=== PATIENT | male | born 1945 | race Caucasian/White ===

== ENCOUNTER → 2020-02-11 09:15 | Outpatient (CLI) | payer MEDICARE, SELFPAY | PROVIDERS: PCP Internal Medicine; Referring Provider Nurse Practitioner; Visit Provider Nurse Practitioner | DX: Z20.828 Contact with and (suspected) exposure to other viral communicable diseases (principal) | CPT/HCPCS: 87635; C9803; U0003 ==

== ENCOUNTER 2021-06-20 09:49 | Outpatient (CLI) | payer MEDICARE, SELFPAY ==
--- NOTE | 2021-06-20 09:53 | ECHOD_ITS ---
Reason For Study: Murmur Procedure This was a 2D Doppler, Color Flow transthoracic echocardiogram. Contrast injection was performed. Exam performed in department. Left Ventricle Normal LV size. Left ventricular systolic function is normal. The estimated ejection fraction is 65 %. No evidence for diastolic dysfunction. No regional wall motion abnormalities noted. Right Ventricle Normal RV size. Normal systolic function. Atria Normal left atrium. Normal right atrium. No doppler evidence for ASD. Mitral Valve There is no mitral annular calcification. Normal mitral valve. Mild (1+) mitral valve insufficiency. Tricuspid Valve Normal tricuspid valve. Trivial tricuspid valve insufficiency. Unable to estimate RV systolic pressure due to insufficient tricuspid regurgitant envelope. Aortic Valve Trisinus/trileaflet aortic valve. Mild diffuse aortic valve thickening. Moderate diffuse aortic valve calcification. Moderate aortic stenosis. Pulmonic Valve The pulmonic valve is not well visualized. Great Vessels Normal sized aortic root. Pericardium/Pleural No pericardial effusion. MMode/2D Measurements & Calculations LVIDd: 4.6 cm IVSd: 1.1 cm LVOT diam: 2.0 cm LVIDs: 2.8 cm LVPWd: 0.97 cm LVOT area: 3.3 cm2 RVDd: 3.0 cm FS: 38.9 % Ao root diam: 3.2 cm LAV(MOD-bp): 55.8 ml Aortic Valve Planimetry: 0.97 cm2 ACS: 0.98 cm LAV(MOD-bp) Indexed: 31.4 ml/m2 LA dimension: 4.0 cm LAV(MOD-sp2): 59.9 ml LAV(MOD-sp4): 52.3 ml LA A4 area: 18.5 cm2 RA A4 area: 15.4 cm2 Time Measurements MV dec time: 0.31 sec Doppler Measurements & Calculations MV E max mhaesh: 80.3 cm/sec Lat Peak E' Mahesh: 7.4 cm/sec Med Peak E' Mahesh: 6.3 cm/sec MV A max mahesh: 103.5 cm/sec E/E' lat: 10.9 E/E' med: 12.8 MV E/A: 0.78 MV V2 max: 101.6 cm/sec MV P1/2t max mahesh: 75.7 cm/sec Ao V2 max: 309.8 cm/sec MV max P.1 mmHg MV P1/2t: 99.3 msec Ao max P.4 mmHg MV V2 mean: 58.0 cm/sec MV dec slope: 223.2 cm/sec2 Ao V2 mean: 218.9 cm/sec MV mean P.5 mmHg Ao mean P.6 mmHg MV V2 VTI: 28.6 cm MVA(P1/2t): 2.2 cm2 Ao V2 VTI: 73.6 cm MVA(VTI): 2.8 cm2 KAPIL(I,D): 1.1 cm2 KAPIL(V,D): 1.0 cm2 AI max mahesh: 302.4 cm/sec LV V1 max: 98.4 cm/sec MR max mahesh: 559.1 cm/sec AI max P.6 mmHg LV V1 max P.9 mmHg MR max P.0 mmHg LV V1 mean P.2 mmHg MR mean mahesh: 448.2 cm/sec AI dec slope: 149.5 cm/sec2 LV V1 mean: 69.5 cm/sec MR mean P.3 mmHg AI P1/2t: 592.5 msec LV V1 VTI: 24.7 cm MR VTI: 196.1 cm SV(LVOT): 81.0 ml PA V2 max: 124.2 cm/sec ECHO/Echo Complete Interpretation Summary Left ventricular systolic function is normal. The estimated ejection fraction is 65 %. Mild (1+) mitral valve insufficiency. Trivial tricuspid valve insufficiency. Moderate aortic stenosis. Unable to estimate RV systolic pressure due to insufficient tricuspid regurgita nt envelope. No evidence for diastolic dysfunction. Ordering Physician: Cam Torres Referring Physician: Felix Bill M.D. Performed By: Attila Courtney RCS
== END 2021-06-20 23:59 | disposition home or self-care (01) ==
PROVIDERS: PCP Internal Medicine; Referring Provider Internal Medicine Cardiovascular Disease; Visit Provider Internal Medicine Cardiovascular Disease
DX: I35.0 Nonrheumatic aortic (valve) stenosis (principal)
CPT/HCPCS: 93306

== ENCOUNTER → 2022-06-22 | Outpatient (CLI) | payer MEDICARE, SELFPAY ==
--- NOTE | 2022-06-22 09:58 | ECHOD_ITS ---
Reason For Study: Aortic Stenosis Procedure This was a 2D Doppler, Color Flow transthoracic echocardiogram. The exam was of adequate technical quality. Exam performed in department. Left Ventricle Normal LV size. Left ventricular systolic function is normal. The estimated ejection fraction is 65 %. No evidence for diastolic dysfunction. No regional wall motion abnormalities noted. Right Ventricle Normal RV size. Normal systolic function. Atria Normal left atrium. Normal right atrium. No doppler evidence for ASD. Mitral Valve There is no mitral annular calcification. Normal mitral valve. Mild (1+) mitral valve insufficiency. Tricuspid Valve Normal tricuspid valve. Trivial tricuspid valve insufficiency. Right ventricular systolic pressure estimated to be 28 mmHg. Aortic Valve Trisinus/trileaflet aortic valve. Mild diffuse aortic valve thickening. Moderate diffuse aortic valve calcification. Moderate aortic stenosis. Trivial aortic valve insufficiency. Pulmonic Valve The pulmonic valve is not well visualized. Great Vessels Normal sized aortic root. Pericardium/Pleural No pericardial effusion. MMode/2D Measurements & Calculations LVIDd: 4.7 cm IVSd: 0.93 cm LVOT diam: 2.0 cm LVIDs: 3.3 cm LVPWd: 1.1 cm LVOT area: 3.2 cm2 RVDd: 3.4 cm FS: 30.1 % Ao root diam: 3.1 cm LAV(MOD-bp): 58.6 ml Aortic Valve Planimetry: 1.0 cm2 LA dimension: 4.0 cm LAV(MOD-bp) Indexed: 32.3 ml/m2 LAV(MOD-sp2): 57.6 ml LAV(MOD-sp4): 51.6 ml LA A4 area: 17.6 cm2 RA A4 area: 17.4 cm2 Time Measurements MV dec time: 0.23 sec Doppler Measurements & Calculations MV E max mahesh: 74.4 cm/sec Lat Peak E' Mahesh: 9.5 cm/sec Med Peak E' Mahesh: 7.5 cm/sec MV A max mahesh: 84.5 cm/sec E/E' lat: 7.9 E/E' med: 9.9 MV E/A: 0.88 MV V2 max: 93.7 cm/sec MV P1/2t max mahesh: 76.8 cm/sec Ao V2 max: 313.6 cm/sec MV max P.5 mmHg MV P1/2t: 75.8 msec Ao max P.4 mmHg MV V2 mean: 53.9 cm/sec MV dec slope: 296.5 cm/sec2 Ao V2 mean: 244.9 cm/sec MV mean P.3 mmHg Ao mean P.9 mmHg MV V2 VTI: 26.9 cm MVA(P1/2t): 2.9 cm2 Ao V2 VTI: 72.3 cm MVA(VTI): 2.7 cm2 AV (velocity ratio): 0.31 KAPIL(I,D): 0.99 cm2 KAPIL(V,D): 1.0 cm2 AI max mahesh: 323.9 cm/sec LV V1 max: 99.0 cm/sec MR max mahesh: 417.8 cm/sec AI max P.0 mmHg LV V1 max P.9 mmHg MR max P.8 mmHg LV V1 mean P.3 mmHg AI dec slope: 171.2 cm/sec2 LV V1 mean: 71.9 cm/sec AI P1/2t: 554.2 msec LV V1 VTI: 22.2 cm SV(LVOT): 71.4 ml PA V2 max: 97.6 cm/sec TR max mahesh: 250.6 cm/sec PA V2 mean: 65.6 cm/sec TR max P.1 mmHg ECHO/Echo Complete Interpretation Summary Left ventricular systolic function is normal. The estimated ejection fraction is 65 %. Mild (1+) mitral valve insufficiency. Trivial tricuspid valve insufficiency. Moderate aortic stenosis. Trivial aortic valve insufficiency. Right ventricular systolic pressure estimated to be 28 mmHg. No evidence for diastolic dysfunction. Ordering Physician: Cam Torres Performed By: Attila Courtney RCS
== END | disposition home or self-care (01) ==
LOC: CVS 09:54
PROVIDERS: PCP Internal Medicine; Visit Provider Internal Medicine Cardiovascular Disease
DX: I35.0 Nonrheumatic aortic (valve) stenosis (principal)
CPT/HCPCS: 93306

== ENCOUNTER → 2022-11-23 | Outpatient (CLI) | payer MEDICARE, SELFPAY ==
--- NOTE | 2022-11-23 09:08 | RAD_ITS ---
STUDY: X-RAY - LUMBAR SPINE REASON FOR EXAM: Male, 77 years old. Low back pain, unspecified TECHNIQUE: 5 view(s) of the lumbar spine were obtained. COMPARISON: None FINDINGS: Normal lumbar lordosis. Moderate levoconvex scoliosis. Moderate spondylosis. Multilevel vacuum disc phenomena. Slight anterior wedging L1. There is a normal alignment of the vertebrae. Normal vertebral bodies and endplates. Normal disc space heights. The soft tissue structures are unremarkable. Oblique projections are negative for pars defects. RAD/L/S Spine Min 4 Views IMPRESSION: Mild scoliosis. Moderate spondylosis. Degenerative disc disease. Mild compression fracture L1, age indeterminate. Electronically Signed: Pete Schuler MD at 23:58 EDT ,
--- NOTE | 2022-11-23 09:08 | RAD_ITS ---
STUDY: X-RAY - PELVIS REASON FOR EXAM: Male, 77 years old. Low back pain, unspecified TECHNIQUE: One view of the pelvis was obtained. COMPARISON: None. FINDINGS: There is a non-specific bowel gas pattern. Normal visualized soft tissue structures. Curvilinear calcifications left upper quadrant. Soft tissue calcifications noted within the genitalia. Moderate levoconvex scoliosis. Normal bilateral iliac wings, sacroiliac joints and visualized sacrum. Normal visualized bilateral superior and inferior pubic rami. Normal pubic symphysis. Normal ischial tuberosities. Normal visualized right femoral head. Normal right acetabulum. Normal right hip joint. Normal visualized left femoral head. Normal left acetabulum. Normal left hip joint. RAD/Pelvis 1 or 2 Views IMPRESSION: Moderate scoliosis and spondylosis. Genital calcifications as above. Otherwise negative pelvis. Electronically Signed: Pete Schuler MD at 17:18 EDT ,
== END | disposition home or self-care (01) ==
PROVIDERS: PCP Internal Medicine; Referring Provider Chiropractor Orthopedic; Visit Provider Chiropractor Orthopedic
DX: M54.50 Low back pain, unspecified (principal); M99.03 Segmental and somatic dysfunction of lumbar region
CPT/HCPCS: 72110; 72170

== ENCOUNTER → 2023-01-08 | Outpatient (CLI) | payer MEDICARE, SELFPAY ==
--- NOTE | 2023-01-08 07:49 | ECHOD_ITS ---
Reason For Study: NON-RHEUMATIC AORTIC STENOSIS Procedure This was a 2D Doppler, Color Flow transthoracic echocardiogram. Exam performed in department. Left Ventricle Normal LV size. Left ventricular systolic function is normal. The estimated ejection fraction is 60 %. Stage 1 diastolic dysfunction. No regional wall motion abnormalities noted. Right Ventricle Normal RV size. Normal systolic function. Mitral Valve Bileaflet diffuse mitral valve thickening. Mild (1+) eccentric mitral valve insufficiency. Tricuspid Valve Normal tricuspid valve. Mild (1+) tricuspid valve insufficiency. Pulmonary artery systolic pressure is 30 mmHg. Aortic Valve Trisinus/trileaflet aortic valve. Moderate focal aortic valve calcification. Peak aortic valve gradient 60 mmHg. Mean aortic valve gradient 37 mmHg. Moderately Severe . Pulmonic Valve Normal pulmonic valve. Great Vessels Normal aortic root. The pulmonary artery is normal size. Normal inferior vena cava. Pericardium/Pleural No pericardial effusion. MMode/2D Measurements & Calculations LVIDd: 4.9 cm IVSd: 0.99 cm LVOT diam: 2.0 cm LVIDs: 3.0 cm LVPWd: 0.99 cm LVOT area: 3.2 cm2 FS: 38.0 % Ao root diam: 3.1 cm LAV(MOD-bp): 55.8 ml LVAd ap4: 30.5 cm2 LAV(MOD-bp) Indexed: 32.4 ml/m2 LVLd ap4: 8.0 cm LAV(MOD-sp2): 52.9 ml EDV(MOD-sp4): 96.1 ml LAV(MOD-sp4): 54.3 ml EDV(sp4-el): 98.8 ml LVAs ap4: 17.5 cm2 LVLs ap4: 6.1 cm ESV(MOD-sp4): 42.0 ml ESV(sp4-el): 42.7 ml EF(MOD-sp4): 56.3 % EF(sp4-el): 56.7 % SV(MOD-sp4): 54.1 ml SV(MOD-sp2): 46.6 ml LVAd ap2: 26.0 cm2 LVLd ap2: 7.7 cm EDV(MOD-sp2): 73.5 ml EDV(sp2-el): 74.5 ml LVAs ap2: 14.2 cm2 LVLs ap2: 6.4 cm ESV(MOD-sp2): 26.9 ml ESV(sp2-el): 26.8 ml EF(MOD-sp2): 63.3 % SV(sp4-el): 56.1 ml LA A4 area: 17.8 cm2 LA dimension(2D): 4.3 cm RA A4 area: 16.5 cm2 Time Measurements MV dec time: 0.25 sec Doppler Measurements & Calculations MV E max mahesh: 81.6 cm/sec Lat Peak E' Mahesh: 9.5 cm/sec Med Peak E' Mahesh: 6.9 cm/sec MV A max mahesh: 89.9 cm/sec E/E' lat: 8.6 E/E' med: 11.9 MV E/A: 0.91 MV V2 max: 96.7 cm/sec MV dec slope: 323.3 cm/sec2 Ao V2 max: 385.6 cm/sec MV max P.7 mmHg Ao max P.5 mmHg MV V2 mean: 66.3 cm/sec Ao V2 mean: 288.2 cm/sec MV mean P.9 mmHg Ao mean P.5 mmHg MV V2 VTI: 32.4 cm Ao V2 VTI: 101.4 cm MVA(VTI): 2.5 cm2 AV (velocity ratio): 0.25 KAPIL(I,D): 0.80 cm2 KAPIL(V,D): 0.82 cm2 LV V1 max: 100.3 cm/sec MR max mahesh: 662.2 cm/sec SV(LVOT): 81.4 ml LV V1 max P.0 mmHg MR max P.4 mmHg LV V1 mean P.4 mmHg MR mean mahesh: 549.9 cm/sec LV V1 mean: 73.4 cm/sec MR mean P.9 mmHg LV V1 VTI: 25.7 cm MR VTI: 234.4 cm PA V2 max: 104.7 cm/sec TR max mahesh: 257.8 cm/sec PA V2 mean: 77.4 cm/sec TR max P.6 mmHg ECHO/Echo Complete Interpretation Summary Normal LV size. Left ventricular systolic function is normal. The estimated ejection fraction is 60 %. Stage 1 diastolic dysfunction. Mean aortic valve gradient 37 mmHg. Moderate focal aortic valve calcification. Peak aortic valve gradient 60 mmHg. Moderately Severe Compared to previous his is worse. Ordering Physician: Nakita Zarate Referring Physician: Felix Bill Performed By: Jazmyne Barroso, GIOVANI, RVT
== END | disposition home or self-care (01) ==
LOC: CVS 07:48
PROVIDERS: PCP Internal Medicine; Referring Provider Physician Assistant Medical; Visit Provider Physician Assistant Medical
DX: I35.0 Nonrheumatic aortic (valve) stenosis (principal)
CPT/HCPCS: 93306

== ENCOUNTER 2023-02-13 07:00 | Day surgery (SDC) | payer MEDICARE, SELFPAY ==
--- NOTE | 2023-01-29 09:53 | HP.PCM_ITS ---
History and Physical Date of Admission: 02/13/23 Zana Kay is a 78 -year-old white male who presents for a cardiac catheterization. He has a history of valvular heart disease with aortic valve stenosis and mitral valve regurgitation. His most recent echocardiogram from 01/08/2023 demonstrates moderately severe aortic valve stenosis. Pt does acknowledges worsening shortness of breath with minimal exertion. He does sometimes have vague discomfort. He does not have any lightheadedness/dizziness. He does not have any palpitations. Intake Vital Signs See EMR Allergies See EMR Medications See EMR [facility] Medical History Back problem Bone fracture Crohn disease Diabetes type 2, controlled Essential hypertension Heart murmur High cholesterol Mixed hyperlipidemia Non-rheumatic mitral regurgitation Nonrheumatic aortic (valve) stenosis Stomach ulcer Ulcerative colitis Surgical History History of carpal tunnel surgery Family History Mother Diabetes Liver disease CAD (coronary artery disease)Father Diabetes CAD (coronary artery disease) History of coronary artery bypass surgery Social History Smoking Status: Former smoker Smokeless tobacco user: snuff how long ago did patient quit smokin+ years second hand exposure: No alcohol intake: never substance use type: does not use caffeine: Yes Type: coffee Number of servings: 5 ROS Const Const: Negative for fatigue, weakness, headache(s), frequent falls, excessive sweating, weight gain or weight loss Eyes Eyes: Negative for blind spots, loss of peripheral vision, transient loss of vision, blurry vision, change in vision or double vision ENT ENT: Negative for headache(s), dizziness, tinnitus, Nosebleed/epistaxis or balance problems Cardio Chest Pain: Yes Palpitations: No Edema: None Muscle aches with walking: None Resp Respiratory: Positive for SOB with activity; Negative for SOB at rest, SOB orthopnea\SOB lying down or Cough GI GI: Negative nausea, vomiting, heartburn, bloating, vomiting blood/hematemesis, bright, red blood in stools or black,tarry stools : Negative for hematuria Musc Musc: Negative for muscle aches/ myalgia, muscle weakness, joint pain or balance problems Skin Skin: Negative rash or wounds Neuro Neuro: Negative for dizziness, lightheadedness, near syncope, syncope, orthostatic symptoms, frequent falls, headache(s), weakness, confusion, memory loss, restless legs, blurry vision or double vision [place] Hematologic/Lymphatic: Negative for easy bleeding or easy bruising Endo Endo: Negative for fatigue, cold intolerance, heat intolerance or excessive sweating Psych Psych: Negative for anxiety or depression Allergy Allergy/Immunology: Negative for rash Cardiology Exam Const Appearance: cooperative, healthy appearing, comfortable, no acute distress, well developed and well groomed Nutritional Appearance: overweight Orientation: alert, awake and oriented x3 Head Head: normal to inspection, normocephalic and atraumatic Ears: hearing grossly normal bilaterally Nose: external nose normal Face and Sinus: face symmetric Eyes Eyelids: eyelids normal Conjunctivae: conjunctivae normal Pupils: PERRL EOM: EOM intact bilaterally Neck Neck: normal visual inspection and full ROM Carotids: normal carotid upstroke Chest Chest inspection: normal inspection of the chest, symmetric chest movement and normal respiratory effort Auscultation: Bilateral: Clear to Auscultation Cardio Palpation: normal PMI Rate: regular rate Rhythm: regular rhythm Heart sounds: S1 normal and S2 normal Murmur: Grade 3/6, loud, harsh, crescendo, LLSB, LVOT, sternal notch and radiates to carotids GI GI: normal to inspection, soft and bowel sounds present Neuro General: patient alert, patient awake, patient oriented x3 and moves all extremities Skin Skin: no rashes or lesions noted Extremities Pulses: Normal: Right Radial Pulse and Left Radial Pulse Lower Extremity Edema: None: Bilateral Psych Psychological: normal affect Supplemental Info Supplemental Information Echocardiogram 01/08/2023: Interpretation Summary Normal LV size. Left ventricular systolic function is normal. The estimated ejection fraction is 60 %. Stage 1 diastolic dysfunction. Mean aortic valve gradient 37 mmHg. Moderate focal aortic valve calcification. Peak aortic valve gradient 60 mmHg. Moderately Severe Compared to previous his is worse. Echocardiogram: 06/20/2021 Interpretation Summary Left ventricular systolic function is normal. The estimated ejection fraction is 65 %. Mild (1+) mitral valve insufficiency. Trivial tricuspid valve insufficiency. Moderate aortic stenosis. Unable to estimate RV systolic pressure due to insufficient tricuspid regurgitant envelope. No evidence for diastolic dysfunction. Echocardiogram 06/22/2022: Left ventricular systolic function is normal. The estimated ejection fraction is 65 %. Mild (1+) mitral valve insufficiency. Trivial tricuspid valve insufficiency. Moderate aortic stenosis. Trivial aortic valve insufficiency. Right ventricular systolic pressure estimated to be 28 mmHg. No evidence for diastolic dysfunction. ? Assessment and Plan Assessment and Plan (1) Nonrheumatic aortic (valve) stenosis: Status: Acute Comment: Moderate per ECHO 10/04/20 Plan: Patient acknowledges worsening shortness of breath with minimal exertion, and chest discomfort. His most recent echocardiogram from 01/08/2023 demonstrated moderately severe aortic valve stenosis. Would like to proceed with a left cardi ac catheterization to further assess this. Depending on results, further recommendations will be made.
--- NOTE | 2023-02-13 08:52 | CL.D_ITS ---
Patient Name: VIDAL BRUNO Study Date: 02/13/2023 Performing: Chase Baig MD Ht: 66 inches 167.64 cm : 1945 Wt: lbs kg Age: 78 Gender: male BSA: PROCEDURE(S) PERFORMED [id number])LHC/COR/LV CLINICAL PROFILE AND INDICATIONS Indications: Valvular Disease Heart Failure: None Stress/Imaging Stress/Image Study Performed: No CAD Presentations: No Sxs, no angina. CONCLUSIONS Severe disease involving a long LAD lesion as well as a right coronary artery lesion and moderately severe aortic stenosis. RECOMMENDATIONS We will recommend patient be considered for aortic valve replacement and coronary artery bypass surgery. DESCRIPTION OF PROCEDURE The patient arrived to the procedure lab. The risks and benefits of the procedure as well as a full description of our services here and current unavailability of surgical backup were fully explained to the patient and/or their significant other prior to the catheterization. The Timeout was completed, verifying the correct patient and procedure. The patient's procedural site was prepped and draped in the usual fashion. Local anesthetic was given subcutaneously to right radial region with Lidocaine 2%. Using a modified Seldinger technique, arterial access was obtained via the right radial artery, a 6Fr sheath was inserted. Left Coronary Artery selective angiography was performed in multiple views using a 5 Fr. 4.0 Miles catheter. Right Coronary Artery selective angiography was then performed in multiple views using a 5 Fr. 4.0 Miles catheter. Left Ventriculography was performed in MOHAMUD projection using a 5 Fr. Pigtail catheter. LV to AO pullback pressures were then recorded.The arterial sheath was pulled and a TR Band was applied for hemostasis - 10cc air CORONARY ANGIOGRAPHY DOMINANCE: Co- Dominant LEFT HEART ASSESSMENT Left Ventricular Ejection Fraction: by LV Gram 60 % Normal LV wall motion Normal Left Ventricular systolic function LEFT MAIN: Moderate calcification, Mild luminal irregularities less than 30% LEFT ANTERIOR DESCENDING ARTERY: Medium size vessel with a long 80% proximal to mid stenotic lesion and diffuse disease involving the first and second diagonal branches. CIRCUMFLEX ARTERY: Moderate calcification with moderate mid segment stenosis present RAMUS: Mild luminal irregularities less than 30% RIGHT CORONARY ARTERY: Codominant vessel with mild calcification and high-grade 90% proximal stenosis noted mild diffuse disease noted in the posterolateral vessel. VALVE FINDINGS: Aortic Valve Calcification - moderate Aortic Valve Stenosis - moderate COMPLICATIONS No Complications PROCEDURE MEDICATIONS Fentanyl 50 mcg IV Versed 1 mg IV Versed 1 mg IV Oxygen: 2 L/min via nasal cannula Heparin given IA 02/13/2023 08:31:59 Verapamil 2.5mg, 3000 units of Heparin given IA 02/13/2023 08:31:59 SUMMARY OF HEMODYNAMIC DATA Time AIR REST ECG 07:21:21 AO 130/54 (82) SA 08:35:53 LV 145/4, 14 08:40:59 LV 146/4, 12 08:41:07 LV 137/3, 12 08:41:54 LV 135/2, 12 08:42:02 LVp 126/6, 14 08:42:15 AOp 102/37 (62) 08:42:22 Signed By Chase Baig MD On 02/13/2023 08:51:19 Chase Baig MD
== END 2023-02-13 10:35 | disposition home or self-care (01) ==
LOC: CLSP 07:01
PROVIDERS: PCP Internal Medicine; Referring Provider Internal Medicine Cardiovascular Disease; Visit Provider Internal Medicine Cardiovascular Disease
DX: I35.0 Nonrheumatic aortic (valve) stenosis (principal); E11.9 Type 2 diabetes mellitus without complications; I10 Essential (primary) hypertension; E78.2 Mixed hyperlipidemia; I70.90 Unspecified atherosclerosis; Z87.891 Personal history of nicotine dependence; Z82.49 Family history of ischemic heart disease and other diseases of the circulatory system
CPT/HCPCS: 93005; 93458; 99152; 99153; J7040; C1769; C1894; Q9967

== ENCOUNTER → 2023-04-05 | Outpatient (CLI) | payer MEDICARE, SELFPAY ==
--- NOTE | 2023-04-05 10:06 | CR.HP_ITS ---
CR - History & Physical General Arrival date:: 04/05/23 Arrival time:: 10:06 Date of Referral:: 03/29/23 Date of CR Evaluation:: 04/05/23 Referring Physician: Dr. Eduar Rodríguez Primary Diagnosis: S/P CABG History of Present Cardiac Event Onset Date Coronary Artery Bypass Graft:: Yes (02/28/23) Heart valve replacement or repair:: Yes (02/28/23) Medications Ambulatory Orders Medication Instructions Recorded pen needle, diabetic 32 gauge x #30 ea 06/02/18 (Comfort EZ Pen Amalia) ascorbic acid (vitamin C) 1,000 mg 1 g PO DAILY 05/31/21 tablet glucosamine-chondroitin 500 mg-400 1 cap PO DAILY 05/31/21 mg capsule multivitamin 1 tab PO DAILY 05/31/21 ramipril 5 mg capsule 5 mg PO DAILY 05/31/21 dapagliflozin propanediol 10 mg 10 mg PO DAILY 06/15/21 tablet (Farxiga) glipizide 5 mg tablet 5 mg PO BID 11/29/21 insulin glargine 100 unit/mL (3 15 unit subcut QDAY 06/14/22 mL) subcutaneous pen (Lantus Solostar U-100 Insulin) mesalamine 1.2 gram tablet,delayed 1.2 g PO BID #180 tabs 08/08/22 release aspirin 81 mg tablet,delayed 81 mg PO DAILY 01/24/23 release (Adult Aspirin Regimen) Allergies Allergies No Known Allergies Allergy (Unverified 12/18/22 11:03) Sleep Disorder Evaluation Hx of Sleep Apnea: No Do you snore loudly (louder than talking or can be heard through closed doors)?: No Do you often feel tired/ fatigued/ sleepy during daytime?: No Has anyone observed you stop breathing during sleep?: No History of Hypertension (for STOP score): Yes STOP Results: Negative Advanced Directives Advanced Directives 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 Submerged Arc: Yes Living Will: Yes Advance Directives Information Provided: Yes Advance Directives on File: No DNR Order?:: No Past Medical History Covid-19 Screening Physicial Symptoms Other Clinical Concerns Exposure Risk Pertinent Comorbidities 65 years or older:: Yes Diabetic:: Yes Past Medical Illness Medical History Back problem Bone fracture Crohn disease Diabetes type 2, controlled Essential hypertension Heart murmur High cholesterol Mixed hyperlipidemia Non-rheumatic mitral regurgitation Nonrheumatic aortic (valve) stenosis Stomach ulcer Ulcerative colitis Past Surgical History Surgical History History of carpal tunnel surgery Family History Summary Family History Mother Diabetes Liver disease CAD (coronary artery disease) Father Diabetes CAD (coronary artery disease) History of coronary artery bypass surgery Social History Smoking History Smoking Status: Former smoker Years Smokin Packs Smoked per Day: 1 (pt stopped 40 years ago) Hx Tobacco Use: Yes Alcohol Use Alcohol Usage: No Substance Abuse Hx Substance Use: No Occupation Occupation (List type of work in comments):: Retired Hobbies, Recreation, Social Activities Hobbies: Other (leather work, shooting) Recreational Activities: I am able to engage in most, but not all activities Social Environment Status Marital Status: Current Living Arrangements Living Environment:: Spouse Children How many children do you have?: 2 Do any of your children live nearby?: Yes Safety Do you feel safe in your surroundings?: Yes Assistance Do you need any assistance at home?: no Review of Systems Review of Systems Hints Review of Present Symptoms: Reports Operative Discomfort, Fatigue, Heart Arrhythmia/Irregularities (post op a-fib), Appetite - Normal, Appetite - Special Diet and Sleep - Normal; Denies Shortness of Breath at Rest, Shortness of Breath with Exertion, PVD, Angina, Wound Healing, Dizziness/Lightheadedness or Sexual Changes Pain Is Patient Pain Free?: Yes Risk Factor Assessment Vital Signs Pulse Ox: 98 Blood Pressure: 142/50 Pulse Pulse Rate: 67 Pulse Rhythm: Regular Hypertension Blood Pressure Sitting - Left Arm: 142/50 Diabetes Diabetic History: Type II Nutrition Referral for Diabetes: Yes Obesity Height: 5 ft 6 in Weight:: 143 lb Weight in Pounds: 143.0 lbs Body Mass Index (BMI): 23.1 Physical Inactivity Physical Inactivity: Reg Exercise 30 min/day Risk Stratification Risk Guidelines: Lowest Risk: Risk Factor for Smoking, Risk Factor for Obesity, Risk Factor for Sedentary Lifestyle and Risk Factor for Depression and Highest Risk: Risk Factor for Dyslipidemia, Risk Factor for Diabetes and Risk Factor for Hypertension For Smoking Smoking Risk Guidelines For Dyslipidemia Dyslipidemia Risk Guidelines For Diabetes Mellitus Diabetes Risk Guidelines For Obesity/Overweight Obesity/Overweight Risk Guidelines For Hypertension Hypertension Risk Guidelines For Sedentary Lifestyle Sedentary Lifestyle Risk Guidelines For Depression Depression Risk Guidelines Family History Family History Mother Diabetes Liver disease CAD (coronary artery disease) Father Diabetes CAD (coronary artery disease) History of coronary artery bypass surgery Motivation Motivation to Participate On a scale of 1 to 10, how prepared are you to commit to attending program?: 8 What do you see as barriers to successfully being able to complete the program?: nothing What do you see as the benefits of succesfully completing the program? In other words, what do you hope to get out of participating in the program?: more energy and strength Are there issues you are dealing with that will interfere with completing the program?: no Do you have a spouse or signficant other, family or friends who will help support you to complete the program?: yes
--- NOTE | 2023-04-05 10:16 | PCM.CR.ITP ---
Diagnosis General Information Admitting Diagnosis: s/p CABG Personal Learning Style:: Audio/Visual Stage of change r/t lifestyle modifications:: Contemplation Gave educational material for:: Treating Heart Disease, How The Heart Works, What it means to have Heart Disease, How Coronary Artery Disease is Diagnosed, Heart Procedures, What Heart Medications Do, Risk Factors & Modifications, Living an Active Life, Nutrition, Emotions & Heart Disease, Stress Management & Relaxation and Sleep Disorders & Heart Disease Education/Goals Cardiac Rehabilitation Goals Personal Goals: Initial Assessment: Improve energy level, Participate in home exercise program, Get back to work, or to resume activities faster, Improve muscle strength and endurance and Control risk factors (learn risk factor modification) Scale for measuring improvement of personal goals Diagnosis & Disease Process Outcomes/Goals: Pt IDs own risk factors & lifestyle modifications by Session 10, Verbalizes symptoms of angina & response by session 3., Pt independently manages and Other Additional Outcomes/Goals: Plan/Interventions: Assist Pt to ID & engage in lifestyle modification to reduce CVD risk, Instruct on individual risk factors, Review symptoms of angina & emergency actions, Review secondary diagnosis & identify educational needs. and Other see comment 30 day Reassessments:: Not Met 30 day Reassessments:: Not Met 30 day Reassessments:: Not Met 30 day Reassessments:: Not Met Final Reassessments:: Not Met Safety Referral to Physical Therapy: No Fall Risk Assessed:: Yes Assistive Devices:: None Exercise - Initial Assessment Visit Date of Eval: 04/05/23 (initial eval ) Mets: Pre-: >3 METS for 30 minutes by discharge, >5 METS for 30 minutes by discharge, >7 METS for 30 minutes by discharge and Unable to meet goal due to: (see comment below) Physician Prescribed Exercise Modalities: Treadmill, Rower, Airdyne, NuStep, SciFit and Lateral Balm Frequency: 3x/week for 12 weeks [36 sessions] Intensity: 60-80% of age predicted maximum heart rate reserve Duration: 30 - 45 minutes Current METSs:: 3 Target Heart Rate:: 85-99 EKG Type: Post op A-fib Outcomes & Goals Goals:: Verbalizes understanding of THR, RPE & goal METS by session 6, Documents in home exercise log/reports 30 min aerobic 5 day/wk by DC, Demonstrates accurate pulse taking by DC and Other additional outcome/goals: see below Intervention & Plan Exercise Program Goals: Instruct on personal THR & RPE, Instruct on MET level & personal MET goal, Show patient to take own pulse /validate performance until accurate, Instruct on home exercise and Other additional plan/int Physical Activity Home Exercise Physical Activity - Home Exercise: Safe Exercise, Warm-up, Self-monitoring, Cool-Down, Home Exercise > 30 min Daily and Sitting Time <3 hours/daily Outcomes & Goals Outcomes/Goals: Demonstrates correct Warm-up/exercise Cool-Down (S3) if = 2.5 METs, Verbalizes symptoms of exercise intolerance by Session 3 (S3), Demonstrate safe equipment use (S3) & follows exercise prescrition (6) and Other: See below Intervention & Plan Plan/Intervention: Instruct warm-up & cool-down if exercising at > 2 METs, Instruct on symptoms of exercise intolerance & actions to take, Instruct & monitor on saf, Assess intial functional capacity & safety risk and Other See below Nutrition - Initial Assessment Program Goals Nutrition Program Goals Patient has diagnosis of Hyperlipidemia (ICD E78)?: Yes Visit Date of Eval: 04/05/23 (initial eval ) Cholesterol/Lipids (Other Core Measures) Determine presence & major risk factors that modify LDL goal: Cigarette smoking, Hypertension or hypertensive medication, Low HDL cholesterol <40 mg/dL*, Family history of premature CHD in Male < 55 years: female <65 yearsFa and Age men > 45 years; women >/= 55 years Outcomes/Goals: Pt IDs own risk factors & lifestyle modifications by Session 10, Verbalizes symptoms of angina & response by session 3., Pt independently manages and Other Additional Outcomes/Goals: Intervention/Plan: Advocate for lipid panel cholesterol medication if applicable, Instruct on personal lipid levels & lipid goals/NCEP guidelines, Instruct on cholesterol and Other additional plan/int Referral to dietitian:: No Diabetes (Other Core Measures) Diabetes Type: Diagnosis Type II ICD-10 E11 Insulin dependent injection/pump?: Yes Non-Insulin Dependent?: Yes Do you monitor your blood sugar at home?: Yes Referral to Diabetic Clinic:: No (declines) Outcomes/Goals:: Able to state symptoms of, Able to state, Able to state and Other additional Intervention/Plan:: Instruct on, Refer to, Instruct on and Other Weight Mgt (Other Care) Height: 5 ft 6 in Weight:: 143 lb BMI: 23.1 Diagnosis Overweight/Obesity BMI> 30% ICD-10 E66: No Diagnosis High BMI/Morbid Obesity BMI> 35% ICD-10 Z68: No Outcomes/Goals: Pt sets, maintains & shows weight loss goal & trend during rehab and Other additional outcomes/goals Intervention/Plan: Instruct on ideal BMI & set weight loss goal w/patient, Assist pt to ID & incorporate diet changes for weight loss by S9, Refer to Structured Weight Loss program as appropriate, Encourage goal of using 250-300dcal per session for weight loss and Other additional plan/interventions Healthy Eating Habits Will attend diet classes:: Yes Outcomes/Goals:: Consume diet rich in vegs,fruits,whole grain/high fiber,fish,lean meat, Limit sat/trans fats,cholesterol & added salts & sugars and Other additional outcome/goals: Education Gave educational materials for:: Signs & symptoms of hypoglycemia, Signs & symptoms of hyperglycemia, Relate diabetes to coronary artery disease and Healthy eating Core - Initial Assessment Visit Date of Eval: 04/05/23 (initial eval ) Medication Compliance Preventative Medication(s):: Statin/lipid, Beta paloma and Eliquis H/O mental health issues: depression, anxiety, or addiction?: No Doesn?t believe in the benefits of treatment?: No Believes medications are unnecessary or harmful?: No Has a concern about medication side effects?: No Expresses concern over the cost of medications?: No Outcomes/Goals: Verbalizes medications,desired effect & common side effects @ DC, Pt self-reports following medication regimen, Keeps card in wallet w/medications listed by DC and Other additional outcome/goals: Interventions/plans: Instruct on medication effects & side effects, Review medication list w/patient every two weeks, Instruct importance of taking meds as ordered & assist problem solving and Other additional Tobacco Use Tobacco Use: Non-smoker How long ago did you quit using tobacco products?: Greater than or equal to 6 months ago Hypertension Hypertension Diagnosis:: Hypertension ICD-10 I10 [place] [employer] Hypertension Guidelines Outcomes/Goals: Able to verbalize/achieve optimal blood pressure <130/80, Incorporates diet changes & exercise for blood pressure control by DC and Other additional outcomes/goals Interventions/plan: Instruct on optimal blood pressure, hypertension & medications, Instruct on effects of sodium, alcohol, stress, exercise &hypertension and Other additional plan/interventions Tobacco Cessation Referral Individual Education/Counseling:: No Education Schedule Given:: Yes Psychosocial - Initial Assess VIsit Date of Eval: 04/05/23 (initial eval ) History of previous Mental disease:: No Target Goals Target Goals Psychosocial Test Tool Used:: [employer] Power QOL Cardiac and PHQ-9 Questionnaire phq-9 Severity Outcomes/Goals: See list Psychosocial Outcomes/Goals:: ID's personal stressors & 2 strategies to manage stress by discharge and Other Additional outcome/goals: Intervention/Plan: See List Interventions/Plan:: Assess stressors,coping strategies & signs of derpression on admission, Instruct/assist pt to develop coping & personal stress Mgt strategies, Refer to Behavioral Health if appropriate, Refer to Physician if appropriate, Instruct patient to recognize signs & symptoms of depression, Instruct patient to recog and Other additional plan/intervention Patient Health Questionnaire PHQ-9 Screening Initial Assessment: 1. Little interest or pleasure in doing things: Not at all 2. Feeling down, depressed, or hopeless: Not at all 3. Trouble falling or staying asleep, or sleeping too much: Not at all 4. Feeling tired or having little energy: Not at all 5. Poor appetite or overeating: Not at all 6. Feeling bad about yourself -- or that you are a failure or have let yourself or your family down: Not at all 7. Trouble concentrating on things, such as reading the newspaper or watching television: Not at all 8. Moving or speaking so slowly that other people could have noticed. Or the opposite - being so fidgety or restless that you have been moving around a lot more than usual: Not at all 9. Thoughts that you would be better off , or of hurting yourself in some way: Not at all How difficult have these problems made it for you to do your work, take care of things at home, or get along with other people?: Not difficult at all Total Score: 0 MAMI-Q SV Test Statements CAD is a disease of the arteries in the heart: False Examples of risk factors for heart disease: True Angina is chest pain or discomfort: I Don't Know The benefits of resistance training include: True Eating more meat and dairy products: False Anti-platelet medications such as aspirin are important: I Don't Know The only effective way to manage stress: False An exercise warm-up slowly increases heart rate: True Prepared, processed foods usually have high sodium: True Depression is common after a heart attack: I Don't Know The statin medications lower cholesterol: I Don't Know To control blood pressure, lower the amount of sodium: True If someone gets chest discomfort during walking: False Transfats are partially hydrogenated vegetable oils: True Sleep apnea that is not treated increases the risk: I Don't Know To control cholesterol, one should become a vegetarian: False Someone knows if he/she is exercising at the right level: I Don't Know Diabetes cannot be prevented with exercise & health eating: True Stress is a large risk for heart attack: True A diet that can help lower blood pressure is rich in: True Total Score Total Correct Responses: 13 Self-Efficacy 6-Item Scale Initial Assessment: We would like to know how confident you are in doing certain activities. Please select your confidence level for: Fatigue Select Number: 10 Physical Discomfort or Pain Select Number: 10 Emotional Distress Select Number: 10 Other Symptoms or Health Problems Select Number: 10 Different Tasks and Activities Select Number: 10 Medication Select Number: 10 Total Score:: 10 Nutrition Survey Nutrition Survey Instructions Scoring Instructions Nutrition Survey Initial: Have you lost >10 lbs over the past 2 months without trying?: No Are you following a special diet at home for diabetes, low fat, or low salt?: Yes Are you interested in meeting with a dietitian for help understanding your diet?: Yes Do you eat less than 3 meals a day?: No Do you eat fatty meats (reyna, sausage, ribs, etc), fried foods, desserts, large amounts of salad dressings, margarine, butter, or cheese most days?: No Do you have food allergies? 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 Frequency: 3x/week for 12 weeks [36 sessions] Intensity: 60-80% of age predicted maximum heart rate reserve Current METSs:: 3 Target Heart Rate:: 85-99 Nutrition - 30-Day Assessment Weight Mgt (Other Care) Height: 5 ft 6 in Weight:: 143 lb BMI: 23.1 Nutrition - 60-Day Assessment Weight Mgt (Other Care) Height: 5 ft 6 in Weight:: 143 lb BMI: 23.1 Psychosocial - 30-Day Assess Target Goals Target Goals Psychosocial - 60-Day Assess Target Goals Target Goals Psychosocial - 90-Day Assess Target Goals Target Goals Psychosocial - Final Assessmen Target Goals Target Goals Nutrition - 90-Day Assessment Weight Mgt (Other Care) Height: 5 ft 6 in Weight:: 143 lb BMI: 23.1 Nutrition - Final Assessment Program Goals Patient has diagnosis of Hyperlipidemia (ICD E78)?: Yes Weight Mgt (Other Care) Height: 5 ft 6 in Weight:: 143 lb BMI: 23.1
[2023-04-05 10:41] VITALS: PULSE 67; O2SAT 98; BMI 23.1
[2023-04-05 10:46] VITALS: BP 142/50
[2023-04-05 11:14] VITALS: BMI 23.1
== END | disposition home or self-care (01) ==
LOC: CR 10:02
PROVIDERS: PCP Internal Medicine
DX: Z00.00 Encounter for general adult medical examination without abnormal findings (principal)

== ENCOUNTER 2023-04-26 14:15 | Outpatient (RCR) | payer MEDICARE, SELFPAY ==
[2023-04-05 11:14] VITALS: BMI 23.1
== END 2023-04-28 23:59 ==
LOC: CR 14:15
PROVIDERS: PCP Internal Medicine; Referring Provider Thoracic Surgery (Cardiothoracic Vascular Surgery); Visit Provider Thoracic Surgery (Cardiothoracic Vascular Surgery)
DX: Z95.1 Presence of aortocoronary bypass graft (principal)
CPT/HCPCS: 93798

== ENCOUNTER 2023-05-20 06:03 | Day surgery (SDC) | payer MEDICARE, SELFPAY ==
[2023-04-05 11:14] VITALS: BMI 23.1
[2023-05-03 08:15] VITALS: BMI 23.1
--- NOTE | 2023-05-20 | COLBX_PTH ---
PATHOLOGY RESULTS PATIENT: VIDAL BRUNO LOC: EN U#:[id number] AGE/SX: 78/M ROOM: RE05/20/[address]: Dr. Douglas Jimenez DO : 1945 BED: DIS: 05/20/2023 SPEC #: [id number] RECD: 05/20/23 14:30 STATUS: EDWARD REAmy #: [id number] MERCEDEZ: 05/20/23 00:[address]: Douglas Jimenez DEPT: SURGICAL PATHOLOGY RECD BY: Terrence Donnelly ENTERED: 05/21/23 08:09 SP TYPE: COLON BX OTHR DR: Dr. Felix Bill MD Tissues: Cecum, NOS Ascending colon COLON BIOPSY Transverse colon Descending colon Sigmoid colon biopsy Rectum, NOS Procedures: Surgery Specimen Level IV HEADER OPERATION: Colonoscopy with polypectomy and biopsy PRE-OP DIAGNOSIS: Screening TISSUE SUBMITTED: A - Cecum polyp, B - Ascending colon biopsy, C - Hepatic flexure polyp biopsy, D - Transverse colon biopsy, E - Descending colon biopsy, F - Sigmoid biopsy, G - Rectum biopsy MICROSCOPIC DIAGNOSIS A. Cecal polyp, polypectomy: Tubular adenoma. Fragments of fecal material. B. Ascending colon, biopsy: Focal acute colitis. A few pigment laden macrophages suggestive of melanosis coli. See comment. C. Hepatic flexure polyp, biopsy: Hyperplastic polyp. Focal minimal glandular distortion. Negative for chronic active colitis. D. Transverse colon, biopsy: Fragments of colonic mucosa with pigment laden macrophages, consistent with melanosis coli. Focal minimal glandular distortion. Negative for chronic active colitis E. Descending colon, biopsy: Fragments of colonic mucosa with pigment laden macrophages, consistent with melanosis coli. Focal minimal glandular distortion. Negative for chronic active colitis. F. Sigmoid, biopsy: Fragments of hyperplastic polyp. Pigment laden macrophages, consistent with melanosis coli. Focal minimal glandular distortion. Negative for chronic active colitis. G. Rectum, biopsy: Fragments of colonic mucosa with pigment laden macrophages, consistent with melanosis coli. See comment. Focal hyperplastic changes. Focal glandular distortion. Negative for chronic active colitis. SJ:allen 05/22/2023 COMMENT B. Focal minimal cryptitis and glandular distortion are noted. Crypt abscesses or granulomas are not seen. As per EMR, the patient has history of ulcerative colitis. Correlation with clinical, endoscopic findings and appropriate follow up are necessary. MICROSCOPIC DESCRIPTION Slides are reviewed. GROSS DESCRIPTION A - Received in fixative is one container labeled with the patient's name and designated cecal polyp. The specimen consists of multiple irregular fragments of light barnett soft tissue mixed with fecal material that in aggregate measure 2.5 x 0.7 x 0.2 cm. The specimen is totally submitted in one cassette. B - Received in fixative is one container labeled with the patient's name and designated ascending colon biopsy. The specimen consists of multiple irregular fragments of light barnett soft tissue that in aggregate measure 1.0 x 0.3 x 0.1 cm. The specimen is totally submitted in one cassette. C - Received in fixative is one container labeled with the patient's name and designated hepatic flexure polyp. The specimen consists of one irregular fragment of light barnett soft tissue that measures 0.5 x 0.4 x 0.1 cm. The specimen is totally submitted in one cassette. D - Received in fixative is one container labeled with the patient's name and designated transverse colon biopsy. The specimen consists of multiple irregular fragments of light barnett soft tissue that in aggregate measure 1.4 x 0.3 x 0.1 cm. The specimen is totally submitted in one cassette. E - Received in fixative is one container labeled with the patient's name and designated descending colon biopsy. The specimen consists of two irregular fragments of light barnett soft tissue that in aggregate measure 0.6 x 0.4 x 0.1 cm. The specimen is totally submitted in one cassette. F - Received in fixative is one container labeled with the patient's name and designated sigmoid biopsy. The specimen consists of multiple irregular fragments of light barnett soft tissue that in aggregate measure 1.5 x 0.5 x 0.1 cm. The specimen is totally submitted in one cassette. G - Received in fixative is one container labeled with the patient's name and designated rectum biopsy. The specimen consists of multiple irregular fragments of light barnett soft tissue that in aggregate measure 1.2 x 0.3 x 0.1 cm. The specimen is totally submitted in one cassette. / SJ:rg 05/21/2023 TC:1 CPT: 35248 x7
[2023-05-20] MEDS: Lactated Ringers 1,000 ML 15 ML IV (06:35)
[2023-05-20 06:39] VITALS: BP 137/63; PULSE 90; RESP 16; TEMP 36.5; O2SAT 100; BMI 22.2
--- NOTE | 2023-05-20 07:13 | HP.PCM_ITS ---
[facility] - General General Date of Admission: 05/20/23 Date of Service: 05/20/23 Chief Complaint: Screening colonoscopy HPI Narrative VIDAL BRUNO, is a 78 M who presents today for screening colonoscopy. He has past medical history of type 2 diabetes, dysplastic colon polyps on the right side of the colon, CAD status post CABG x 2, ulcerative colitis, status post aortic valve replacement due to nonrheumatic heart disease and aortic stenosis. He comes in today for surveillance colonoscopy. He does take aspirin and vitamin C on a daily basis he has held these medicines for 3 days. He is also insulin-dependent diabetic. He takes mesalamine 1.2 g a day for his ulcerative colitis which is under control. All other 16 review of systems are negative except as per body mentioned HPI. [facility] Medical History (Updated 05/15/23 @ 09:27 by Izabella Min) Back problem Bone fracture Cancer Cardiology follow-up encounter Crohn disease Diabetes type 2, controlled Essential hypertension Former smoker Heart murmur High cholesterol History of echocardiogram History of ulceration Low iron Mixed hyperlipidemia Non-rheumatic mitral regurgitation Nonrheumatic aortic (valve) stenosis Stomach ulcer Ulcerative colitis Wears glasses Home Medications pen needle, diabetic 32 gauge x 5/32 (Comfort EZ Pen [place]) #30 ea 06/02/18 [Rx Last Taken Unknown] ascorbic acid (vitamin C) 1,000 mg tablet 1 g PO DAILY 05/31/21 [History Last Taken Unknown] glucosamine-chondroitin 500 mg-400 mg capsule 1 cap PO DAILY 05/31/21 [History Last Taken Unknown] multivitamin 1 tab PO DAILY 05/31/21 [History Last Taken Unknown] ramipril 5 mg capsule 5 mg PO DAILY 05/31/21 [History Last Taken 02/13/23] dapagliflozin propanediol 10 mg tablet (Farxiga) 10 mg PO DAILY 06/15/21 [History Last Taken Unknown] insulin glargine 100 unit/mL (3 mL) subcutaneous pen (Lantus Solostar U-100 Insulin) 15 unit subcut QHS 06/14/22 [History Last Taken Unknown] mesalamine 1.2 gram tablet,delayed release 1.2 g PO BID #180 tabs 08/08/22 [Rx Last Taken Unknown] aspirin 81 mg tablet,delayed release (Adult Aspirin Regimen) 81 mg PO DAILY 01/24/23 [History Last Taken 02/13/23] metoprolol tartrate 25 mg tablet 25 mg PO BID 04/16/23 [History Last Taken Unknown] rosuvastatin 40 mg tablet 40 mg PO DAILY 04/16/23 [History Last Taken Unknown] insulin lispro 100 unit/mL subcutaneous pen (Humalog KwikPen (U-100) Insulin) 4 unit subcut TID 05/15/23 [History Last Taken Unknown] Allergy/AdvReac Type Severity Reaction Status Date / Time No Known Allergies Allergy Verified 05/15/23 09:14 Family History Mother Diabetes Liver disease CAD (coronary artery disease) Father Diabetes CAD (coronary artery disease) History of coronary artery bypass surgery Surgical History (Updated 05/15/23 @ 09:27 by Izabella Min) History of cardiac catheterization History of carpal tunnel surgery History of tonsillectomy S/P aortic valve replacement S/P CABG x 2 Social History Smoking Status: Former smoker Smokeless tobacco user: snuff how long ago did patient quit smokin+ years second hand exposure: No alcohol intake: never substance use type: does not use caffeine: Yes Type: coffee Number of servings: 5 ROS Review of Systems ROS Unobtainable: other Constitutional Constitutional: Denies fatigue, fever(s), poor appetite, weight gain or weight loss ENT HEENT: Denies mouth lesions Cardiovascular Cardiovascular: Denies abdominal bloating, abdominal edema or abdominal pain Respiratory/Chest Respiratory/Chest: Denies change in mental status, change in phlegm color, chest congestion or chest tightness Gastrointestinal Gastrointestinal: Denies belching, bloating, change in bowel habits, change in stool character, chewing difficulty, coffee ground emesis, constipation, cramping, diarrhea, dyspepsia, dysphagia, early satiety, excessive flatus, fecal incontinence, heartburn, hematemesis, hematochezia, hemorrhoids, loose stools, melena, nausea, odynophagia, rectal bleeding, tenesmus, vomiting or weight changes Genitourinary Genitourinary: Denies abdominal discomfort, burning urination or itching Musculoskeletal Musculoskeletal: Reports as per HPI; Denies muscle weakness or myalgias Integumentary Integumentary: Denies jaundice Neurologic Neurologic: Denies lack of coordination or weakness Psychiatric Psychiatric: Denies confusion, depression, memory loss, mood swings, paranoia or suicidal ideation Endocrine Endocrinology: Denies systems reviewed and no addt'l complaints, except as documented Hematologic/Lymphatic Hematologic/Lymphatic: Denies anemia, easy bleeding, easy bruising or lymphadenopathy Allergic/Immunologic Allergic/Immunologic: Denies systems reviewed and no addt'l complaints, except as documented Vital Signs Vital Signs Vital Signs: 05/20/23 06:39 05/20/23 06:39 Temperature 97.7 F L Temperature Source Temporal Pulse Rate 90 Respiratory Rate 16 Respiratory Pattern Normal Blood Pressure 137/63 H Blood Pressure Mean 87 Blood Pressure Source Monitor Blood Pressure Position Semi-Fowlers Blood Pressure Location Right Arm Pulse Ox 100 Oxygen Delivery Method Room Air Weight Weight: 138 lb 0.15 oz Body Mass Index (BMI) 22.2 Physical Exam Const alert, oriented x3, no apparent distress, healthy appearing and well nourished General Appearance: cooperative, comfortable, well kempt and well developed Orientation / Consciousness: awake and oriented to person HEENT Head and Scalp: normocephalic and atraumatic Face and Sinus: normal facial exam Mouth: oral and palatal mucosa normal Eyes General Eye: normal appearance of both eyes Neck full ROM Lymph Lymphatic: no lymphadenopathy noted Chest inspection of chest normal Resp normal respiratory effort and no use of accessory muscles Cardio regular rate and regular rhythm GI normal to inspection, nondistended, normoactive bowel sounds, soft to palpation, non-tender, non-distended and no masses Auscultation: normoactive bowel sounds Palpation: soft Percussion: normal to percussion Rectal Exam: visual inspection normal and normal sphincter tone no CVA tenderness Back/Spine no CVA tenderness and normal ROM Extremity normal to inspection Peripheral Pulses: Yes pulses 2+ throughout Skin no rashes or lesions noted General Skin Exam: no breakdown, elasticity normal and turgor normal Neuro oriented x3 Motor Exam: strength 5/5 throughout Psych mental status grossly normal Appearance: grossly normal Attitude: calm Activity / Motor Behavior: appropriate eye contact Speech: normal speech Thought Process: normal thought process Thought Content: normal thought content Attention / Concentration: attention grossly intact Memory / Cognition: memory grossly intact Insight: insight good Judgement: judgement good Assessment & Plan Assessment/Plan (1) Polyp of colon: (2) Ulcerative colitis: PLAN: Plan He will undergo surveillance colonoscopy. He was explained alternatives, risk, benefits including not withstanding bleeding, infection, sepsis, perforation, need for emergent surgery and . He will have an ASA of 3.
[2023-05-20 07:55] LABS: Bedside Glucose 138 mg/dL (74-106)
[2023-05-20 12:00] VITALS: BP 137/63; BP 95/43; PULSE 73; RESP 16; TEMP 36.4; O2SAT 100
--- NOTE | 2023-05-20 12:01 | OP.COLON_ITS ---
Patient Name: Zana Kay Procedure Date: 05/20/2023 11:14 AM Date of : 1945 Age: 78 Procedure: Colonoscopy Indications: Follow-up for history of adenomatous polyps in the colon, Left-sided chronic ulcerative colitis Providers: Douglas Jimenez DO Medicines: Monitored Anesthesia Care Patient Profile: This is a 78 year old male. Refer to note in patient chart for documentation of history and physical. Last Colonoscopy: within the past 3 years. Complications: No immediate complications. Procedure: Pre-Anesthesia Assessment: - Prior to the procedure, a History and Physical was performed, and patient medications and allergies were reviewed. The risks and benefits of the procedure and the sedation options and risks were discussed with the patient. All questions were answered and informed consent was obtained. Patient identification and proposed procedure were verified by the physician. Mental Status Examination: normal. Prophylactic Antibiotics: The patient does not require prophylactic antibiotics. Prior Anticoagulants: The patient has taken no anticoagulant or antiplatelet agents. ASA Grade Assessment: III - A patient with severe systemic disease. After reviewing the risks and benefits, the patient was deemed in satisfactory condition to undergo the procedure. The anesthesia plan was to use monitored anesthesia care (MAC). Immediately prior to administration of medications, the patient was re-assessed for adequacy to receive sedatives. The heart rate, respiratory rate, oxygen saturations, blood pressure, adequacy of pulmonary ventilation, and response to care were monitored throughout the procedure. The physical status of the patient was re-assessed after the procedure. After I obtained informed consent, the scope was passed under direct vision. Throughout the procedure, the patient's blood pressure, pulse, and oxygen saturations were monitored continuously. The Colonoscope was introduced through the anus and advanced to the terminal ileum. The colonoscopy was performed without difficulty. The patient tolerated the procedure well. The quality of the bowel preparation was adequate. The terminal ileum, ileocecal valve, appendiceal orifice, and rectum were photographed. Scope In: 11:36:24 AM Scope Withdrawal Time 0 hours 13 minutes 47 seconds Scope Out: 11:54:50 AM Total Procedure Duration Time 0 hours 18 minutes 26 seconds Findings: The perianal and digital rectal examinations were normal. A few small-mouthed diverticula were found in the recto-sigmoid colon and sigmoid colon. A 9 mm polyp was found in the cecum. The polyp was sessile. The polyp was removed with a saline injection-lift technique using a hot snare. Resection and retrieval were complete. Verification of patient identification for the specimen was done. Estimated blood loss was minimal. Inflammation was found as small patches surrounded by normal mucosa 3 cm apart. This was graded as Marquez Score 1 (mild, with erythema, decreased vascular pattern, mild friability), and when compared to the previous examination, the findings are improved. Biopsies were taken with a cold forceps for histology. Verification of patient identification for the specimen was done. Estimated blood loss was minimal. The terminal ileum appeared normal. Impression: - Diverticulosis in the recto-sigmoid colon and in the sigmoid colon. - One 9 mm polyp in the cecum, removed using injection-lift and a hot snare. Resected and retrieved. - Mild (Marquez Score 1) ulcerative colitis, improved since the last examination. Biopsied. - The examined portion of the ileum was normal. Recommendation: - Discharge patient to home. - Resume previous diet. - Continue present medications. - Await pathology results. - Repeat colonoscopy in 1 year for surveillance. Procedure Code(s): --- Professional --- 50500, Colonoscopy, flexible; with removal of tumor(s), polyp(s), or other lesion(s) by snare technique 83939, 59, Colonoscopy, flexible; with biopsy, single or multiple 81841, Colonoscopy, flexible; with directed submucosal injection(s), any substance CPT copyright 202 [employer]. All rights reserved. The codes documented in this report are preliminary and upon training representative review may be revised to meet current compliance requirements. Douglas Jimenez DO 05/20/2023 12:01:31 PM This report has been signed electronically. Number of Addenda: 0 Note Initiated On: 05/20/2023 11:14 AM
--- NOTE | 2023-05-20 12:02 | OP.CCLET_ITS ---
05/20/2023 Felix Bill [address] [place] [address] Re : Colonoscopy procedure for Zana Kay Dear Dr. Bill This procedure was performed on Saturday, May 20, 2023. My impressions and recommendations are as follows: Impressions : - Diverticulosis in the recto-sigmoid colon and in the sigmoid colon. - One 9 mm polyp in the cecum, removed using injection-lift and a hot snare. Resected and retrieved. - Mild (Marquez Score 1) ulcerative colitis, improved since the last examination. Biopsied. - The examined portion of the ileum was normal. Recommendations : - Discharge patient to home. - Resume previous diet. - Continue present medications. - Await pathology results. - Repeat colonoscopy in 1 year for surveillance. My findings are described in the full procedure note, which is enclosed. If I can be of further assistance, please feel free to contact me at . Sincerely, Douglas Jimenez, 05/20/2023 12:01:31 PM This report has been signed electronically.
[2023-05-20 12:05] VITALS: BP 119/54; BP 137/63; PULSE 72; RESP 16; O2SAT 99
[2023-05-20 12:10] VITALS: BP 119/64; BP 137/63; PULSE 74; RESP 16; TEMP 36.6; O2SAT 100
[2023-05-20 12:39] VITALS: BP 137/63
== END 2023-05-20 12:40 | disposition home or self-care (01) ==
LOC: EN 06:05 → AC 06:06
PROVIDERS: PCP Internal Medicine; Referring Provider Internal Medicine; Visit Provider Internal Medicine Gastroenterology
PROC: 0DJD8ZZ Inspection of Lower Intestinal Tract, Via Natural or Artificial Opening Endoscopic (ICD-10-PCS; CPT 45378; principal; 2023-05-20 06:55)
DX: K51.90 Ulcerative colitis, unspecified, without complications (principal); Z79.4 Long term (current) use of insulin; E11.9 Type 2 diabetes mellitus without complications; E78.2 Mixed hyperlipidemia; I08.0 Rheumatic disorders of both mitral and aortic valves; K63.5 Polyp of colon; Z95.2 Presence of prosthetic heart valve; Z87.891 Personal history of nicotine dependence; I10 Essential (primary) hypertension; K57.30 Diverticulosis of large intestine without perforation or abscess without bleeding
CPT/HCPCS: 45380; 45385; 45381; 82962; 88305; J7120; J2405

== ENCOUNTER 2023-05-27 14:15 | Outpatient (RCR) | payer MEDICARE, SELFPAY ==
[2023-04-05 11:14] VITALS: BMI 23.1
--- NOTE | 2023-05-03 08:05 | CR.ITP_ITS ---
Exercise - Initial Assessment Visit Session #:: 8 Nutrition - Initial Assessment Weight Mgt (Other Care) Height: 5 ft 6 in Weight:: 143 lb 8 oz BMI: 23.1 Psychosocial - Initial Assess Target Goals Target Goals Patient Health Questionnaire PHQ-9 Screening 30-Day Re-eval Assessment: 1. Little interest or pleasure in doing things: Not at all 2. Feeling down, depressed, or hopeless: Not at all 3. Trouble falling or staying asleep, or sleeping too much: Not at all 4. Feeling tired or having little energy: Not at all 5. Poor appetite or overeating: Not at all 6. Feeling bad about yourself -- or that you are a failure or have let yourself or your family down: Not at all 7. Trouble concentrating on things, such as reading the newspaper or watching television: Not at all 8. Moving or speaking so slowly that other people could have noticed. Or the opposite - being so fidgety or restless that you have been moving around a lot more than usual: Not at all 9. Thoughts that you would be better off , or of hurting yourself in some way: Not at all How difficult have these problems made it for you to do your work, take care of things at home, or get along with other people?: Not difficult at all Total Score: 0 Self-Efficacy 6-Item Scale 30-Day Re-eval Assessment: We would like to know how confident you are in doing certain activities. Please select your confidence level for: Fatigue Select Number: 10 Physical Discomfort or Pain Select Number: 10 Emotional Distress Select Number: 10 Other Symptoms or Health Problems Select Number: 10 Different Tasks and Activities Select Number: 10 Medication Select Number: 10 Total Score:: 10 Nutrition Survey Nutrition Survey Instructions Scoring Instructions Exercise - 30-day Assessment Visit Date of Eval: 05/03/23 Session #:: 8 Physician Prescribed Exercise Modalities: Treadmill, Airdyne and NuStep Frequency: 3x/week for 12 weeks [36 sessions] Intensity: 60-80% of age predicted maximum heart rate reserve Duration: 30 - 45 minutes Current METSs:: 3 Target Heart Rate:: 85-99 Current RPE:: 12 Maximum Excercise HR:: 112 Resting Blood Pressure: 130/58 Maximum Exercise Blood Pressure: 162/80 EKG Type: NSR to ST with rare pac Outcomes & Goals Goals:: Verbalizes understanding of THR, RPE & goal METS by session 6, Documents in home exercise log/reports 30 min aerobic 5 day/wk by DC, Demonstrates accurate pulse taking by DC and Other additional outcome/goals: see below Intervention & Plan Exercise Program Goals: Instruct on personal THR & RPE, Instruct on MET level & personal MET goal, Show patient to take own pulse /validate performance until a ccurate, Instruct on home exercise and Other additional plan/int 30-day Reassessments 30 day Reassessments:: Progressing Reassessment Notes & Comments:: RPE explained Physical Activity Home Exercise Physical Activity - Home Exercise: Safe Exercise, Warm-up, Self-monitoring, C ool-Down, Home Exercise > 30 min Daily and Sitting Time <3 hours/daily Outcomes & Goals Outcomes/Goals: Demonstrates correct Warm-up/exercise Cool-Down (S3) if = 2.5 METs, Verbalizes symptoms of exercise intolerance by Session 3 (S3), Demonstrate safe equipment use (S3) & follows exercise prescrition (6) and Other: See below Intervention & Plan Plan/Intervention: Instruct warm-up & cool-down if exercising at > 2 METs, Instruct on symptoms of exercise intolerance & actions to take, Instruct & monit or on saf, Assess intial functional capacity & safety risk and Other See below 30-day Reassessments 30 day Reassessments:: Progressing Reassessment Notes & Comments:: warm up encouraged Nutrition - 30-Day Assessment Program Goals Nutrition Program Goals Patient has diagnosis of Hyperlipidemia (ICD E78)?: Yes Visit Date of Eval: 05/03/23 Session #:: 8 Cholesterol/Lipids (Other Core Measures) Determine presence & major risk factors that modify LDL goal: Cigarette smoking, Hypertension or hypertensive medication, Low HDL cholesterol <40 mg/dL*, Family history of premature CHD in Male < 55 years: female <65 yearsFa and Age men > 45 years; women >/= 55 years Outcomes/Goals: Pt IDs own risk factors & lifestyle modifications by Session 10, Verbalizes symptoms of angina & response by session 3., Pt independently manages and Other Additional Outcomes/Goals: Intervention/Plan: Advocate for lipid panel cholesterol medication if applicable, Instruct on personal lipid levels & lipid goals/NCEP guidelines, Instruct on cholesterol and Other additional plan/int Referral to dietitian:: No 30-day Reassessments:: Progressing Reassessment Notes & Comments:: pt to attend nutrition class Diabetes (Other Core Measures) Diabetes Type: Diagnosis Type II ICD-10 E11 Insulin dependent injection/pump?: Yes Non-Insulin Dependent?: Yes Do you monitor your blood sugar at home?: Yes Referral to Diabetic Clinic:: No (declines) Outcomes/Goals:: Able to state symptoms of, Able to state, Able to state and Other additional Intervention/Plan:: Instruct on, Refer to, Instruct on and Other 30-day Reassessments:: Progressing Reassessment Notes & Comments:: pt to attend nutrition class Weight Mgt (Other Care) Height: 5 ft 6 in Weight:: 143 lb 8 oz BMI: 23.1 Diagnosis Overweight/Obesity BMI> 30% ICD-10 E66: No Outcomes/Goals: Pt sets, maintains & shows weight loss goal & trend during rehab and Other additional outcomes/goals Intervention/Plan: Instruct on ideal BMI & set weight loss goal w/patient, Assist pt to ID & incorporate diet changes for weight loss by S9, Refer to Structured Weight Loss program as appropriate, Encourage goal of using 250- 300dcal per session for weight loss and Other additional plan/interventions 30 day Reassessments:: Met Healthy Eating Habits Will attend diet classes:: Yes Outcomes/Goals:: Consume diet rich in vegs,fruits,whole grain/high fiber,fish,lean meat, Limit sat/trans fats,cholesterol & added salts & sugars and Other additional outcome/goals: Intervention/Plan:: Assess current eating habits and Other Additional plan/interventions 30-day Reassessments:: Progressing Reassessment Notes & Comments:: pt to attend nutrition class Education Gave educational materials for:: Signs & symptoms of hypoglycemia, Signs & s ymptoms of hyperglycemia, Relate diabetes to coronary artery disease and Healthy eating Nutrition - 60-Day Assessment Weight Mgt (Other Care) Height: 5 ft 6 in Weight:: 143 lb 8 oz BMI: 23.1 Core - 30-Day Assessment Visit Date of Eval: 05/03/23 Session #:: 8 Medication Compliance Preventative Medication(s):: Statin/lipid, Beta paloma and Eliquis H/O mental health issues: depression, anxiety, or addiction?: No Doesn?t believe in the benefits of treatment?: No Believes medications are unnecessary or harmful?: No Has a concern about medication side effects?: No Expresses concern over the cost of medications?: No Outcomes/Goals: Verbalizes medications,desired effect & common side effects @ DC, Pt self-reports following medication regimen, Keeps card in wallet w/medications listed by DC and Other additional outcome/goals: Interventions/plans: Instruct on medication effects & side effects, Review medication list w/patient every two weeks, Instruct importance of taking meds as ordered & assist problem solving and Other additional 30-day Reassessments:: Progressing Reassessment Notes & Comments:: pt encouraged to take his meds Tobacco Use Tobacco Use: Non-smoker How long ago did you quit using tobacco products?: Greater than or equal to 6 months ago 30-day Reassessments:: Met Hypertension Hypertension Diagnosis:: Hypertension ICD-10 I10 Resting Blood Pressure:: 130/58 [place] [employer] Hypertension Guidelines Peak Exercise Blood Pressure:: 162/80 Outcomes/Goals: Able to verbalize/achieve optimal blood pressure <130/80, Incorporates diet changes & exercise for blood pressure control by DC and Other additional outcomes/goals Interventions/plan: Instruct on optimal blood pressure, hypertension & medications, Instruct on effects of sodium, alcohol, stress, exercise &hypertension and Other additional plan/interventions 30 day Reassessments:: Progressing Reassessment Notes & Comments:: pt encouraged to take his meds Tobacco Cessation Referral Smoking Cessation Referral:: No Individual Education/Counseling:: No Education Schedule Given:: Yes Psychosocial - 30-Day Assess VIsit Date of Eval: 05/03/23 Session #:: 8 History of previous Mental disease:: No Target Goals Target Goals Outcomes/Goals: See list Psychosocial Outcomes/Goals:: ID's personal stressors & 2 strategies to manage stress by discharge and Other Additional outcome/goals: Intervention/Plan: See List Interventions/Plan:: Assess stressors,coping strategies & signs of derpression on admission, Instruct/assist pt to develop coping & personal stress Mgt strategies, Refer to Behavioral Health if appropriate, Refer to Physician if appropriate, Instruct patient to recognize signs & symptoms of depression, Instruct patient to recog and Other additional plan/intervention 30-day Reassessments: 30 day Reassessments:: Met Psychosocial - 60-Day Assess Target Goals Target Goals Outcomes/Goals: See list Psychosocial Outcomes/Goals:: ID's personal stressors & 2 strategies to manage stress by discharge and Other Additional outcome/goals: Psychosocial - 90-Day Assess Target Goals Target Goals Psychosocial - Final Assessmen Target Goals Target Goals Nutrition - 90-Day Assessment Weight Mgt (Other Care) Height: 5 ft 6 in Weight:: 143 lb 8 oz BMI: 23.1 Nutrition - Final Assessment Weight Mgt (Other Care) Height: 5 ft 6 in Weight:: 143 lb 8 oz BMI: 23.1
[2023-05-03 08:15] VITALS: BP 130/58; BMI 23.1
== END 2023-05-29 23:59 ==
LOC: CR 14:15
PROVIDERS: PCP Internal Medicine; Referring Provider Thoracic Surgery (Cardiothoracic Vascular Surgery); Visit Provider Thoracic Surgery (Cardiothoracic Vascular Surgery)
DX: Z95.1 Presence of aortocoronary bypass graft (principal)
CPT/HCPCS: 93798

== ENCOUNTER 2023-05-31 07:11 | Outpatient (RCR) | payer MEDICARE, SELFPAY ==
[2023-05-03 08:15] VITALS: BMI 23.1
[2023-05-30 00:21] VITALS: BP 130/58
--- NOTE | 2023-06-05 09:10 | CR.ITP_ITS ---
Nutrition - Initial Assessment Weight Mgt (Other Care) Height: 5 ft 6 in Weight:: 145 lb 8 oz BMI: 23.5 Psychosocial - Initial Assess Target Goals Target Goals Patient Health Questionnaire PHQ-9 Screening 60-Day Re-eval Assessment: 1. Little interest or pleasure in doing things: Not at all 2. Feeling down, depressed, or hopeless: Not at all 3. Trouble falling or staying asleep, or sleeping too much: Not at all 4. Feeling tired or having little energy: Not at all 5. Poor appetite or overeating: Not at all 6. Feeling bad about yourself -- or that you are a failure or have let yourself or your family down: Not at all 7. Trouble concentrating on things, such as reading the newspaper or watching television: Not at all 8. Moving or speaking so slowly that other people could have noticed. Or the opposite - being so fidgety or restless that you have been moving around a lot more than usual: Not at all 9. Thoughts that you would be better off , or of hurting yourself in some way: Not at all How difficult have these problems made it for you to do your work, take care of things at home, or get along with other people?: Not difficult at all Total Score: 0 Self-Efficacy 6-Item Scale 60-Day Re-eval Assessment: We would like to know how confident you are in doing certain activities. Please select your confidence level for: Fatigue Select Number: 10 Physical Discomfort or Pain Select Number: 10 Emotional Distress Select Number: 10 Other Symptoms or Health Problems Select Number: 10 Different Tasks and Activities Select Number: 10 Medication Select Number: 10 Total Score:: 10 Nutrition Survey Nutrition Survey Instructions Scoring Instructions Exercise - 60-day Assessment Visit Date of Eval: 06/05/23 (Zana has decided to stop rehab due to family health issues) Session #:: 18 Physician Prescribed Exercise Modalities: Treadmill, Airdyne and NuStep Frequency: 3x/week for 12 weeks [36 sessions] Intensity: 60-80% of age predicted maximum heart rate reserve Duration: 30 - 45 minutes Current METSs:: 3 Target Heart Rate:: 85-99 Current RPE:: 12 Maximum Excercise HR:: 112 Resting Blood Pressure: 138/60 Maximum Exercise Blood Pressure: 170/60 EKG Type: NSR to ST with rare pac's and pvc's Outcomes & Goals Goals:: Verbalizes understanding of THR, RPE & goal METS by session 6, Documents in home exercise log/reports 30 min aerobic 5 day/wk by DC, Demonstrates accurate pulse taking by DC and Other additional outcome/goals: see below Intervention & Plan Exercise Program Goals: Instruct on personal THR & RPE, Instruct on MET level & personal MET goal, Show patient to take own pulse /validate performance until accurate, Instruct on home exercise and Other additional plan/int 30-day Reassessments 30 day Reassessments:: Met Physical Activity Home Exercise Physical Activity - Home Exercise: Safe Exercise, Warm-up, Self-monitoring, Cool-Down, Home Exercise > 30 min Daily and Sitting Time <3 hours/daily Outcomes & Goals Outcomes/Goals: Demonstrates correct Warm-up/exercise Cool-Down (S3) if = 2.5 METs, Verbalizes symptoms of exercise intolerance by Session 3 (S3), Demonstrate safe equipment use (S3) & follows exercise prescrition (6) and Other: See below Intervention & Plan Plan/Intervention: Instruct warm-up & cool-down if exercising at > 2 METs, Instruct on symptoms of exercise intolerance & actions to take, Instruct & monitor on saf, Assess intial functional capacity & safety risk and Other See below 30-day Reassessments 30 day Reassessments:: Met Nutrition - 30-Day Assessment Weight Mgt (Other Care) Height: 5 ft 6 in Weight:: 145 lb 8 oz BMI: 23.5 Nutrition - 60-Day Assessment Program Goals Nutrition Program Goals Patient has diagnosis of Hyperlipidemia (ICD E78)?: Yes Visit Date of Eval: 06/05/23 Session #:: 18 Cholesterol/Lipids (Other Core Measures) Determine presence & major risk factors that modify LDL goal: Cigarette smoking, Hypertension or hypertensive medication, Low HDL cholesterol <40 mg/dL*, Family history of premature CHD in Male < 55 years: female <65 yearsFa and Age men > 45 years; women >/= 55 years Outcomes/Goals: Pt IDs own risk factors & lifestyle modifications by Session 10, Verbalizes symptoms of angina & response by session 3., Pt independently manages and Other Additional Outcomes/Goals: Intervention/Plan: Advocate for lipid panel cholesterol medication if applicable, Instruct on personal lipid levels & lipid goals/NCEP guidelines, Instruct on cholesterol and Other additional plan/int 30-day Reassessments:: Met Diabetes (Other Core Measures) Diabetes Type: Diagnosis Type II ICD-10 E11 Insulin dependent injection/pump?: Yes Non-Insulin Dependent?: Yes Do you monitor your blood sugar at home?: Yes Referral to Diabetic Clinic:: No Outcomes/Goals:: Able to state symptoms of, Able to state, Able to state and Other additional Intervention/Plan:: Instruct on, Refer to, Instruct on and Other 30-day Reassessments:: Met Weight Mgt (Other Care) Height: 5 ft 6 in Weight:: 145 lb 8 oz BMI: 23.5 Diagnosis Overweight/Obesity BMI> 30% ICD-10 E66: No Diagnosis High BMI/Morbid Obesity BMI> 35% ICD-10 Z68: No Outcomes/Goals: Pt sets, maintains & shows weight loss goal & trend during rehab and Other additional outcomes/goals Intervention/Plan: Instruct on ideal BMI & set weight loss goal w/patient, Assist pt to ID & incorporate diet changes for weight loss by S9, Refer to Structured Weight Loss program as appropriate, Encourage goal of using 250- 300dcal per session for weight loss and Other additional plan/interventions 30 day Reassessments:: Met Healthy Eating Habits Will attend diet classes:: Yes Outcomes/Goals:: Consume diet rich in vegs,fruits,whole grain/high fiber,fish,lean meat, Limit sat/trans fats,cholesterol & added salts & sugars and Other additional outcome/goals: Intervention/Plan:: Assess current eating habits and Other Additional plan/interventions 30-day Reassessments:: Met Education Gave educational materials for:: Signs & symptoms of hypoglycemia, Signs & symptoms of hyperglycemia, Relate diabetes to coronary artery disease and Healthy eating Core - 60-Day Assessment Visit Date of Eval: 06/05/23 Session #:: 18 Medication Compliance Preventative Medication(s):: Statin/lipid, Beta paloma and Eliquis H/O mental health issues: depression, anxiety, or addiction?: No Doesn?t believe in the benefits of treatment?: No Believes medications are unnecessary or harmful?: No Has a concern about medication side effects?: No Expresses concern over the cost of medications?: No Outcomes/Goals: Verbalizes medications,desired effect & common side effects @ DC, Pt self-reports following medication regimen, Keeps card in wallet w/medications listed by DC and Other additional outcome/goals: Interventions/plans: Instruct on medication effects & side effects, Review medication list w/patient every two weeks, Instruct importance of taking meds as ordered & assist problem solving and Other additional 30-day Reassessments:: Met Tobacco Use Tobacco Use: Non-smoker Hypertension Hypertension Diagnosis:: Hypertension ICD-10 I10 Resting Blood Pressure:: 138/60 Citizen Of [place] [employer] Hypertension Guidelines Peak Exercise Blood Pressure:: 170/60 Outcomes/Goals: Able to verbalize/achieve optimal blood pressure <130/80, Incorporates diet changes & exercise for blood pressure control by DC and Other additional outcomes/goals Interventions/plan: Instruct on optimal blood pressure, hypertension & medications, Instruct on effects of sodium, alcohol, stress, exercise &hypertension and Other additional plan/interventions 30 day Reassessments:: Progressing Tobacco Cessation Referral Smoking Cessation Referral:: No Individual Education/Counseling:: No Education Schedule Given:: Yes Psychosocial - 30-Day Assess Target Goals Target Goals Outcomes/Goals: See list Psychosocial Outcomes/Goals:: ID's personal stressors & 2 strategies to manage stress by discharge and Other Additional outcome/goals: Psychosocial - 60-Day Assess VIsit Date of Eval: 06/05/23 Session #:: 18 History of previous Mental disease:: No Target Goals Target Goals Outcomes/Goals: See list Psychosocial Outcomes/Goals:: ID's personal stressors & 2 strategies to manage stress by discharge and Other Additional outcome/goals: Intervention/Plan: See List Interventions/Plan:: Assess stressors,coping strategies & signs of derpression on admission, Instruct/assist pt to develop coping & personal stress Mgt strategies, Refer to Behavioral Health if appropriate, Refer to Physician if appropriate, Instruct patient to recognize signs & symptoms of depression, Instruct patient to recog and Other additional plan/intervention 30-day Reassessments: 30 day Reassessments:: Met Psychosocial - 90-Day Assess Target Goals Target Goals Psychosocial - Final Assessmen Target Goals Target Goals Nutrition - 90-Day Assessment Weight Mgt (Other Care) Height: 5 ft 6 in Weight:: 145 lb 8 oz BMI: 23.5 Nutrition - Final Assessment Weight Mgt (Other Care) Height: 5 ft 6 in Weight:: 145 lb 8 oz BMI: 23.5
[2023-06-05 09:20] VITALS: BP 138/60; BMI 23.5
== END 2023-06-27 23:59 ==
LOC: CR 07:11
PROVIDERS: PCP Internal Medicine; Referring Provider Thoracic Surgery (Cardiothoracic Vascular Surgery); Visit Provider Thoracic Surgery (Cardiothoracic Vascular Surgery)
DX: Z95.1 Presence of aortocoronary bypass graft (principal)
CPT/HCPCS: 93798

== ENCOUNTER → 2023-08-02 | Outpatient (CLI) | payer MEDICARE, SELFPAY ==
--- NOTE | 2023-08-02 09:59 | CDU_ITS ---
Reason For Study: CAROTID BRUIT Rt. Velocities/BP Lt. Velocities/BP Prox CCA 97.9/17.5 cm/sec. Prox CCA 102.1/21.7 cm/sec. Mid CCA 81.5/17.5 cm/sec. Mid CCA 118.5/19.9 cm/sec. Dist CCA 99.7/19.4 cm/sec. Dist CCA 124.0/19.9 cm/sec. Prox ICA 212.3 cm/sec. Prox ICA 135.0/19.9 cm/sec. Mid ICA 109.4/21.7 cm/sec. Mid ICA 91.1/18.1 cm/sec. Dist ICA 89.7/20.4 cm/sec. Dist ICA 79.3/23.5 cm/sec. Rt. ICA/CCA = 212.3/81.5=2.6. Lt. ICA/CCA = 135.0/118.5=1.1. Prox ECA 118.5/0.0 cm/sec. Prox ECA 125.8/0.0 cm/sec. Rt. Vert. 100.7/17.1 cm/sec. Lt. Vert. 50.0/11.2 cm/sec. Right Extracranial There is heterogeneous, irregular atherosclerotic plaque noted in the right common carotid artery. There is heterogeneous, irregular atherosclerotic plaque noted in the right internal carotid artery. There is heterogeneous, irregular atherosclerotic plaque noted in the right external carotid artery. Antegrade flow is noted in the right vertebral artery. Left Extracranial There is heterogeneous, irregular atherosclerotic plaque noted in the left common carotid artery. There is heterogeneous, irregular atherosclerotic plaque noted in the left internal carotid artery. There is heterogeneous, irregular atherosclerotic plaque noted in the left external carotid artery. Antegrade flow is noted in the left vertebral artery. Procedure Carotid Duplex 15293. This is a Carotid Duplex examination using B-mode, color flow and specral Doppler. Exam performed in department. VL/Carotid Duplex Ultrasound Interpretation Summary Moderate (50-69%) stenosis right extracranial internal carotid. Moderate (50-69%) stenosis left extracranial internal carotid. Patent and antegrade vertebrals bilaterally. Ordering Physician: Nakita Zarate Referring Physician: Felix Bill Performed By: Jazmyne Barroso, GIOVANI, RVT
== END | disposition home or self-care (01) ==
LOC: CVS 09:58
PROVIDERS: PCP Internal Medicine; Referring Provider Physician Assistant Medical; Visit Provider Physician Assistant Medical
DX: R09.89 Other specified symptoms and signs involving the circulatory and respiratory systems (principal)
CPT/HCPCS: 93880

== ENCOUNTER → 2023-11-21 | Outpatient (CLI) | payer MEDICARE, SELFPAY ==
[2023-11-21 08:19] LABS: Absolute Lymphocyte Count 1.26 X10^3/uL (0.83-4.51); Absolute Neutrophil Count 4.8 X10^3/uL (2.0-7.7); Basophil# 0.07 X10^3/uL; Basophil% 0.9 % (0-1); Eosinophil# 0.35 X10^3/uL; Eosinophils% 4.7 % (0-5); Hematocrit 35.4 % (40-54); Hemoglobin 11.1 g/dL (13.0-16.5); Lymphocyte # 1.26 X10^3/ul (0.83-4.51); Lymphocyte % 17.1 % (19-41); Mean Corp Hgb Conc 31.4 g/dL (32-36); Mean Corpuscular Hgb 26.9 pg (27.0-32.0); Mean Corpuscular Volume 85.9 fL (80-94); Mean Platelet Vol. 8.9 fl (6.2-12.0); Monocyte# 0.92 X10^3/uL; Monocyte% 12.4 % (0-10); NRBC Flagged by Analyzer 0 % (0-5); Neutrophil # 4.75 X10^3/uL (2.7-7.7); Neutrophil % 64.4 % (47-70); Platelet Count 251 K/mm3 (150-450); RBC Distribution Width CV 16.2 % (11.6-14.6); RBC Distribution Width SD 51.5 fl (35.1-43.9); RET-HE 31.6 pg (30-35); Red Blood Count 4.12 M/mm3 (4.6-6.2); Reticulocyte Count 0.76 % (0.5-1.5); White Blood Count 7.4 K/mm3 (4.4-11.0)
[2023-11-21 08:40] LABS: Erythrocyte Sedimentation Rate 47 mm/hr (0-20)
[2023-11-21 08:49] LABS: ALB/GLOB Ratio 0.6 RATIO (0.9-2.4); AST(SGOT) 27 U/L (15-37); Alanine Aminotransfer ALT/SGPT 34 U/L (16-61); Albumin, Serum 3.1 g/dL (3.2-5.0); Alkaline Phosphatase 155 U/L (45-117); Anion Gap 3 (5-15); BUN 40 mg/dL (7-18); BUN/Creat Ratio 38.1 RATIO (10-20); CRP 7.74 mg/L (0.0-3.0); Calcium,Total 9.5 mg/dL (8.5-10.1); Chloride 105 mmol/L (98-107); Creatinine, Serum 1.05 mg/dL (0.70-1.30); EST Glomerular Filtration Rate 73 mL/min (>60); Est Glom Filt Rate - Afr Amer 88 mL/min (>60); Globulin 5.5 g/dL (2.2-4.2); Glucose 169 mg/dL (74-106); Iron 86 ug/dL (65-175); Iron Binding Capacity,Total 271 ug/dL (250-450); PERCENT IRON SATURATION 31.7 % (15.0-55.0); Potassium 4.7 mmol/L (3.5-5.1); Protein, Total 8.6 g/dL (6.4-8.2); Sodium Level 136 mmol/L (136-145)
[2023-11-21 08:50] LABS: Ferritin 751 ng/mL (26-388); LDH 163 U/L (87-241)
[2023-11-21 16:15] LABS: Xtra Tube EP Lab EXTRA TUBE
[2023-11-25 10:07] LABS: Albumin 3.5 g/dL (2.9-4.4); Alpha-1-Globulins 0.6 g/dL (0.0-0.4); Alpha-2-Globulins 1.3 g/dL (0.4-1.0); Free Kappa Light Chains 22.1 mg/L (3.3-19.4); Free Lambda Light Chains 10.2 mg/L (5.7-26.3); Gamma Globulin 0.5 g/dL (0.4-1.8); IMMUNOFIXATION RESULT,S Comment: (.); Immunoglobulin A 31 mg/dL (61-437); Immunoglobulin G 565 mg/dL (603-1613); Immunoglobulin M 3070 mg/dL (15-143); PROEL- TOTAL PROTEIN 7.8 g/dL (6.0-8.5)
== END | disposition home or self-care (01) ==
LOC: PAVLAB 07:59
PROVIDERS: PCP Internal Medicine; Referring Provider Internal Medicine Medical Oncology; Visit Provider Internal Medicine Medical Oncology
DX: C88.0 Waldenstrom macroglobulinemia (principal); D50.9 Iron deficiency anemia, unspecified
CPT/HCPCS: 36415; 80053; 82728; 82784; 83540; 83550; 83615; 83883; 84165; 85025; 85045; 85652; 86140; 86334

== ENCOUNTER → 2024-01-30 | Outpatient (CLI) | payer MEDICARE, SELFPAY ==
--- NOTE | 2024-01-30 08:06 | ECHOD_ITS ---
Reason For Study: AORTIC VALVE REPLACEMENT Procedure This was a 2D Doppler, Color Flow transthoracic echocardiogram. Myocardial strain analysis was performed in this exam to aid in the assessment of cardiac function. Exam performed in department. Left Ventricle Normal LV size. Left ventricular systolic function is normal. The left ventricular ejection fraction is 60 %. No regional wall motion abnormalities noted. Right Ventricle Normal RV size. Normal systolic function. Atria The left atrium is mildly enlarged. Normal right atrium. Mitral Valve Bileaflet diffuse mitral valve thickening. Mild (1+) eccentric mitral valve insufficiency. Tricuspid Valve Normal tricuspid valve. Mild tricuspid valve insufficiency. Pulmonary artery systolic pressure is 26 mmHg. Aortic Valve Peak aortic valve gradient 18 mmHg. Mean aortic valve gradient 11 mmHg. Bioprosthetic aortic valve. Great Vessels Normal aortic root. The pulmonary artery is normal size. Inferior vena cava collapse with respiration. Pericardium/Pleural No pericardial effusion. MMode/2D Measurements & Calculations LVIDd: 4.3 cm IVSd: 1.0 cm LVOT diam: 2.0 cm LVIDs: 3.2 cm LVPWd: 1.0 cm LVOT area: 3.1 cm2 RVDd: 3.6 cm FS: 24.9 % asc Aorta Diam: 2.5 cm LAV(MOD-bp): 63.6 ml LVAd ap4: 25.6 cm2 LAV(MOD-bp) Indexed: 36.2 ml/m2 LVLd ap4: 7.9 cm LAV(MOD-sp2): 68.7 ml EDV(MOD-sp4): 66.6 ml LAV(MOD-sp4): 56.3 ml EDV(sp4-el): 70.6 ml LVAs ap4: 14.3 cm2 LVLs ap4: 6.2 cm ESV(MOD-sp4): 26.9 ml ESV(sp4-el): 27.9 ml EF(MOD-sp4): 59.6 % EF(sp4-el): 60.5 % SV(MOD-sp4): 39.7 ml SV(MOD-sp2): 38.1 ml LVAd ap2: 23.9 cm2 LVLd ap2: 7.6 cm EDV(MOD-sp2): 60.5 ml EDV(sp2-el): 63.4 ml LVAs ap2: 12.5 cm2 LVLs ap2: 6.3 cm ESV(MOD-sp2): 22.4 ml ESV(sp2-el): 21.0 ml EF(MOD-sp2): 63.0 % SV(sp4-el): 42.7 ml Ao sinus diam: 2.[address] Junction: 2.1 cm LA A4 area: 19.5 cm2 LA dimension(2D): 4.6 cm RA A4 area: 17.1 cm2 TAPSE: 1.3 cm Time Measurements MV dec time: 0.24 sec Doppler Measurements & Calculations MV E max mahesh: 105.2 cm/sec Lat Peak E' Mahesh: 9.5 cm/sec Med Peak E' Mahesh: 7.7 cm/sec MV A max mahesh: 82.0 cm/sec E/E' lat: 11.0 E/E' med: 13.7 MV E/A: 1.3 Ao V2 max: 213.1 cm/sec LV V1 max: 106.9 cm/sec MV dec slope: 435.0 cm/sec2 Ao max P.2 mmHg LV V1 max P.6 mmHg Ao V2 mean: 156.3 cm/sec LV V1 mean P.6 mmHg Ao mean P.7 mmHg LV V1 mean: 75.4 cm/sec Ao V2 VTI: 50.8 cm LV V1 VTI: 24.7 cm AV (velocity ratio): 0.49 KAPIL(I,D): 1.5 cm2 KAPIL(V,D): 1.6 cm2 SV(LVOT): 76.3 ml PA V2 max: 106.9 cm/sec TR max mahesh: 237.7 cm/sec PA max PG (full): 2.4 mmHg TR max P.6 mmHg ECHO/Echo Complete Interpretation Summary Normal LV size. Left ventricular systolic function is normal. The left ventricular ejection fraction is 60 %. The left atrium is mildly enlarged. Bioprosthetic aortic valve. Mean aortic valve gradient 11 mmHg. The global longitudinal strain is normal. The global longitudinal strain = -17. 5 % (normal). Ordering Physician: Nakita Zarate Referring Physician: Felix Bill M.D. Performed By: Yulia Rollins RDCS
== END | disposition home or self-care (01) ==
LOC: CVS 08:06
PROVIDERS: PCP Internal Medicine; Referring Provider Physician Assistant Medical; Visit Provider Physician Assistant Medical
DX: Z95.2 Presence of prosthetic heart valve (principal)
CPT/HCPCS: 93306

== ENCOUNTER 2024-02-19 10:36 | Outpatient (RCR) | payer MEDICARE, SELFPAY | END 2024-02-27 23:59 | LOC: NS 10:36 | PROVIDERS: PCP Internal Medicine; Visit Provider Internal Medicine Medical Oncology | DX: Z71.3 Dietary counseling and surveillance (principal) ==

== ENCOUNTER → 2024-08-12 | Outpatient (CLI) | payer MEDICARE, SELFPAY ==
--- NOTE | 2024-08-12 08:02 | CDU_ITS ---
Reason For Study Reason For Study: Bilateral Carotid Bruit Rt. Velocities/BP Lt. Velocities/BP Prox CCA 67.7/13.8 cm/sec. Prox CCA 80.9/12.2 cm/sec. Mid CCA 60.0/16.0 cm/sec. Mid CCA 68.6/13.4 cm/sec. Dist CCA 68.8/19.3 cm/sec. Dist CCA 88.3/15.8 cm/sec. Prox ICA 138.1/39.5 cm/sec. Prox ICA 101.4/16.7 cm/sec. Mid ICA 150.9/37.6 cm/sec. Mid ICA 90.4/29.0 cm/sec. Dist ICA 75.4/27.0 cm/sec. Dist ICA 67.4/25.7 cm/sec. Rt. ICA/CCA = 2.5. Lt. ICA/CCA = 1.5. Prox ECA 112.5/6.6 cm/sec. Prox ECA 85.8/6.0 cm/sec. Rt. Vert. 54.8/17.5 cm/sec. Lt. Vert. 57.6/13.4 cm/sec. Right Extracranial There is heterogeneous, irregular atherosclerotic plaque noted in the right common carotid artery. There is heterogeneous, irregular atherosclerotic plaque noted in the right internal carotid artery. There is heterogeneous, irregular atherosclerotic plaque noted in the right external carotid artery. Antegrade flow is noted in the right vertebral artery. Left Extracranial There is heterogeneous, irregular atherosclerotic plaque noted in the left common carotid artery. There is heterogeneous, irregular atherosclerotic plaque noted in the left internal carotid artery. There is heterogeneous, irregular atherosclerotic plaque noted in the left external carotid artery. Antegrade flow is noted in the left vertebral artery. Procedure Carotid Duplex [id number]. This is a Carotid Duplex examination using B-mode, color flow and specral Doppler. The exam was diagnostic. Exam performed in department. VL/Carotid Duplex Ultrasound Interpretation Summary Moderate (50-69%) stenosis right extracranial internal carotid. Mild (<50%) stenosis left extracranial internal carotid. Patent and antegrade vertebrals bilaterally. Ordering Physician: Nakita Zarate Referring Physician: Felix Bill M.D. Performed By: Dominik Mederos RVT
== END | disposition home or self-care (01) ==
LOC: CVS 08:00
PROVIDERS: PCP Internal Medicine; Referring Provider Physician Assistant Medical; Visit Provider Physician Assistant Medical
DX: R09.89 Other specified symptoms and signs involving the circulatory and respiratory systems (principal)
CPT/HCPCS: 93880

== ENCOUNTER → 2025-03-10 | Outpatient (CLI) | payer MEDICARE, SELFPAY ==
--- NOTE | 2025-03-10 06:21 | ECHOD_ITS ---
Reason For Study ECHO/Echo Complete
[2025-03-10 07:58] LABS: AST(SGOT) 30 U/L (<=37); Alanine Aminotransfer ALT/SGPT 29 U/L (<=46); Albumin, Serum 4.5 g/dL (3.4-4.8); Alkaline Phosphatase 93 U/L (40-129); Bilirubin, Direct 0.12 mg/dL (0.00-0.30); Cholesterol 151 mg/dL (<=200); Globulin 2.8 g/dL (2.2-4.2); Low Density Lipoprotein Calc. 48 mg/dL; Triglycerides 105 mg/dL; Very Low Density Lipoprotein 21 mg/dL (5-40); cholesterol:hdl ratio screen 1.80
--- NOTE | 2025-03-10 11:58 | STRESSREP_ITS ---
Stress Test Report
--- NOTE | 2025-03-10 11:58 | STRESSREP ---
Stress Test Report Date: 03/10/2025 Procedure: Exercise tolerance test/imaging study Indications: Coronary artery disease Consent: Per the patient Procedure: The patient exercised on a Miguel protocol for 6 minutes and 15 seconds achieving a peak heart rate of 144 bpm (102% predicted maximal heart rate) with a peak blood pressure 180/70 mmHg and a peak MET capacity of 7.7 METs. The baseline ECG demonstrated sinus rhythm. The peak exercise ECG showed downsloping and horizontal ST depressions in inferior and lateral leads suggestive of ischemia. Rare PVC noted. The functional capacity was considered very good for age. There was no angina reported. Dyspnea reported. The examination was discontinued secondary to target heart rate being achieved. The patient was injected with 11.8 mCi of technetium 99m Cardiolite and subsequently rest SPECT Cardiolite nuclear imaging was obtained in the horizontal long, vertical long, and short axis views. Post-exercise, the patient was injected with 33.1 mCi of technetium 99m Cardiolite and subsequently stress SPECT Cardiolite nuclear imaging was obtained in the horizontal long, vertical long, and short axis views. A gated Cardiolite study at peak stress was obtained. Rest and stress SPECT Cardiolite nuclear imaging status post realignment, normalization, and attenuation correction, demonstrates reversible inferior wall hypoperfusion post exercise suggestive of ischemia. There is end systolic thickening and brightening. The gated Cardiolite study demonstrates myocardial thickening and inward wall motion. The reported LVEF is 63%. Impression: 1. Technically adequate (percent predicted maximal heart rate greater than 85%) exercise tolerance test 2. Peak exercise ECG with ischemic changes in inferior and lateral leads 3. No significant cardiac dysrhythmias noted 4. Rest and stress SPECT Cardiolite nuclear imaging demonstrate moderate-sized reversible inferior defect suggestive of ischemia. 5. The gated Cardiolite study reports an LVEF of 63%. This note was generated with [employer] software. It may contain incorrect words, spelling, and punctuation that were not noted in checking the note before signing.
== END | disposition home or self-care (01) ==
PROVIDERS: Physician Assistant Medical; PCP Internal Medicine; Referring Provider Nurse Practitioner Gerontology; Visit Provider Nurse Practitioner Gerontology
DX: I35.0 Nonrheumatic aortic (valve) stenosis (principal); R07.9 Chest pain, unspecified; Z95.1 Presence of aortocoronary bypass graft; E78.00 Pure hypercholesterolemia, unspecified
CPT/HCPCS: 36415; 78452; 80061; 80076; 93017; 93306; A9500; A4216

== ENCOUNTER 2025-04-15 10:47 | Observation (INO) | payer MEDICARE, SELFPAY ==
--- NOTE | 2025-04-06 09:58 | HP.PCM_ITS ---
History and Physical Date of Admission: 04/15/25 Zana Kay is a 80-year-old white male who presents today for a cardiac catheterization following an abnormal stress test. He has a history of valvular heart disease with aortic valve stenosis and mitral valve regurgitation. Echocardiogram in 2021 demonstrated moderate . When he was seen in November of 2022, he noted he had more SOB and vague chest pain. Echocardiogram demonstrated worsening . Diagnostic heart cath demonstrated severe disease involving a long LAD lesion as well as a right coronary artery lesion and moderately severe aortic stenosis. He underwent a CABG x 2 with an SINGER to the LAD, SVG to the PL along with an AVR with a 23 mm Bautista magna bioprosthetic valve on 02/28/2023 at [facility] by Dr. Rodríguez. Postoperatively he did require an us guided thoracentesis. He does see Dr. Hurtado, and he was diagnosed with lymphoma. He does follow with him routinely. From a cardiac standpoint, the patient is doing well. He does acknowledge intermittent chest pain. This is located left chest, and is brief. He describes this as a gas sensation. He denies any palpitations, pressure or heaviness. He denies SOB, Orthopnea, and PND. He does not have bleeding issues; no blood in urine, stool, or nosebleeds. He does acknowledge tiring easier. He denies myalgias, or claudication. He does not have edema, or sudden weight gain. He denies lightheadedness, dizziness, syncopal or near syncopal episodes, and headaches. Intake Vital Signs See EMR Allergies See EMR Medications See EMR PFSH Medical History Shingles Bilateral carotid artery disease BPH (benign prostatic hyperplasia) Anemia Wears glasses Cancer Low iron History of ulceration Former smoker History of echocardiogram Cardiology follow-up encounter Non-rheumatic mitral regurgitation Nonrheumatic aortic (valve) stenosis Mixed hyperlipidemia Essential hypertension Stomach ulcer Crohn disease Ulcerative colitis Heart murmur High cholesterol Diabetes type 2, controlled Bone fracture Back problem Surgical History History of cataract surgery History of colonoscopy (~04/2023) History of cardiac catheterization History of tonsillectomy S/P aortic valve replacement S/P CABG x 2 History of carpal tunnel surgery Family History Mother Diabetes Liver disease CAD (coronary artery disease) Father Diabetes CAD (coronary artery disease) History of coronary artery bypass surgery Sister Breast cancer Daughter Breast cancer Social History Smoking Status: Former smoker Tobacco: How many years used: 20 Smokeless tobacco user: snuff how long ago did patient quit smokin+ years second hand exposure: No alcohol intake: never substance use type: does not use caffeine: Yes Type: coffee Number of servings: 5 ROS Const Const: Positive for fatigue; Negative for weakness, headache(s) or frequent falls Eyes Eyes: Negative for blurry vision ENT ENT: Negative for headache(s), dizziness or Nosebleed/epistaxis Cardio Chest Pain: Yes Frequency: other Character: other (gas sensation) Palpitations: No Edema: None Muscle aches with walking: None Resp Respiratory: Negative for SOB with activity, SOB at rest or SOB orthopnea\SOB lying down GI GI: Negative nausea, vomiting, heartburn, bright, red blood in stools or black,tarry stools : Negative for hematuria Neuro Neuro: Negative for dizziness, lightheadedness, near syncope, syncope, frequent falls, headache(s), weakness or blurry vision Endo Endo: Positive for fatigue Cardiology Exam Const Appearance: cooperative, healthy appearing, comfortable, no acute distress, well developed and well groomed Nutritional Appearance: overweight Orientation: alert, awake and oriented x3 Head Head: normal to inspection, normocephalic and atraumatic Ears: hearing grossly normal bilaterally Nose: external nose normal Face and Sinus: face symmetric Eyes Eyelids: eyelids normal Conjunctivae: conjunctivae normal Pupils: PERRL EOM: EOM intact bilaterally Neck Neck: normal visual inspection and full ROM Carotids: normal carotid upstroke and bruit Bilateral Chest Chest inspection: normal inspection of the chest, symmetric chest movement and normal respiratory effort Auscultation: Bilateral: Clear to Auscultation Cardio Palpation: normal PMI Rate: regular rate Rhythm: regular rhythm Heart sounds: S1 normal, S2 normal and murmur Murmur: Grade 2/6, soft, harsh, LLSB and radiates to carotids GI GI: normal to inspection and soft Neuro General: patient alert, patient awake, patient oriented x3 and moves all extremities Skin Skin: no rashes or lesions noted Extremities Pulses: Normal: Right Radial Pulse and Left Radial Pulse Lower Extremity Edema: None: Bilateral Psych Psychological: normal affect Supplemental Info Supplemental Information Echocardiogram 01/2024: Normal LV size. Left ventricular systolic function is normal. The left ventricular ejection fraction is 60 %. The left atrium is mildly enlarged. Bioprosthetic aortic valve. Mean aortic valve gradient 11 mmHg. The global longitudinal strain is normal. The global longitudinal strain = -17.5 % (normal). Echocardiogram 11/2022: Normal LV size. Left ventricular systolic function is normal. The estimated ejection fraction is 60 %. Stage 1 diastolic dysfunction. Mean aortic valve gradient 37 mmHg. Moderate focal aortic valve calcification. Peak aortic valve gradient 60 mmHg. Moderately Severe Compared to previous his is worse. Cardiac cath 01/2023: Severe disease involving a long LAD lesion as well as a right coronary artery lesion and moderately severe aortic stenosis. RECOMMENDATIONS We will recommend patient be considered for aortic valve replacement and coronary artery bypass surgery. CORONARY ANGIOGRAPHY DOMINANCE: Co- Dominant LEFT HEART ASSESSMENT Left Ventricular Ejection Fraction: by LV Gram 60 % Normal LV wall motion Normal Left Ventricular systolic function LEFT MAIN: Moderate calcification, Mild luminal irregularities less than 30% LEFT ANTERIOR DESCENDING ARTERY: Medium size vessel with a long 80% proximal to mid stenotic lesion and diffuse disease involving the first and second diagonal branches. CIRCUMFLEX ARTERY: Moderate calcification with moderate mid segment stenosis present RAMUS: Mild luminal irregularities less than 30% RIGHT CORONARY ARTERY: Codominant vessel with mild calcification and high-grade 90% proximal stenosis noted mild diffuse disease noted in the posterolateral vessel. VALVE FINDINGS: Aortic Valve Calcification - moderate Aortic Valve Stenosis - moderate Carotid duplex 07/2023: Moderate (50-69%) stenosis right extracranial internal carotid. Moderate (50-69%) stenosis left extracranial internal carotid. Patent and antegrade vertebrals bilaterally. Carotid Duplex Ultrasound 07/2024 Interpretation Summary Moderate (50-69%) stenosis right extracranial internal carotid. Mild (<50%) stenosis left extracranial internal carotid. Patent and antegrade vertebrals bilaterally. Assessment and Plan Assessment and Plan (1) S/P CABG x 2: Status: Acute Comment: SINGER to LAD, SVG to posterolateral of RCA 02/28/23 Dr. Price Plan: Patient has a history of coronary artery disease with CABG x 2 in February 2023. He does acknowledge intermittent chest pain. His stress test was noted to be abnormal. Will proceed with a cardiac catheterization to further assess this. Depending on results, further recommendations will be made. (2) Chest pain: Status: Acute Plan: Patient does acknowledge intermittent chest pain. His stress test was noted to be abnormal. Will proceed with a cardiac catheterization to further assess this. Depending on results, further recommendations will be made.
[2025-04-14 09:03] VITALS: BMI 25.0
--- OUTSIDE RECORDS SUMMARY | 2025-04-15 07:44 | XMS RPT_ITS | CCD ---
Author Organization [facility] Care Team Providers Care Ammunition Officer Name Role Phone Sol MARTINEZ, Kaitlynn Riggs Unavailable Felix Bill MD Primary Care Provider Felix Bill MD Primary Care Provider Felix Bill MD Primary Care Provider Dr. Felix Bill Primary Care Provider Nakita Heath Attending Provider Unavailable Dr. Felix Bill Referring Provider Dr. Cam Torres Attending Provider Dr. Felix Bill Primary Care Provider Dr. Felix Bill Referring Provider Jesu MARTINEZ, IN STORE MARKETING ASSOCIATE-C Roz Ceron Attending Provider MARCELLE Gil Attending Provider Wendy MARIN, Leland Unavailable Dr. Felix Bill Primary Care Provider Dr. Felix Bill Referring Provider Tessa IBANEZ, PA Nakita Ceron Attending Provider Dr. Chase Baig Attending Provider Dr. Chase Baig Referring Provider Dr. Chase Baig Other Provider Felix Bill Primary Care Provider Delores Cao RN Unavailable Dr. Felix Bill Primary Care Provider Dr. Felix Bill Referring Provider MARCELLE Claire Attending Provider Safia, Dr. Stone Attending Provider [phone] Chase Baig Referring Provider [phone] Safia, Dr. Stone Other Provider RODRÍGUEZ, EDUAR Attending Unavailable INES, FELIX Primary Care Unavailable ONUR, MEE Consulting Unavailable RODRÍGUEZ, EDUAR Admitting Unavailable RODRÍGUEZ, EDUAR Attending Unavailable INES, FELIX Primary Care Unavailable RODRÍGUEZ, EDUAR Attending Unavailable INES, FELIX Primary Care Unavailable JILLIAN, PHOENIX Attending Unavailable INES, FELIX Primary Care Unavailable JILLIAN, PHOENIX Attending Unavailable INES, FELIX Primary Care Unavailable CAROLINE ROGERS Referring Unavailable INES, FELIX Primary Care Unavailable INES, FELIX Primary Care Unavailable JILLIAN, PHOENIX Attending Unavailable Dr. Felix Bill Primary Care Provider Dr. Felix Bill Referring Provider MARCELLE Claire Attending Provider Dr. Felix Bill Primary Care Provider Dr. Chase Baig Attending Provider [phone] Douglas Jimenez Attending Provider [phone] Dr. Douglas Jimenez Other Provider [phone] Dr. Felix Bill Primary Care Provider Dr. Felix Bill Primary Care Provider Dr. Felix Bill Referring Provider MARCELLE Claire Attending Provider Dr. Douglas Jimenez Attending Provider [phone] Dr. Douglas Jimenez Other Provider [phone] Laverne Paz Attending Provider Unavailable Dr. Marco Hurtado Attending Provider Dr. Eduar Erickson Attending Provider Ines MARIN, Felix Corral Primary Care Provider Lynn Vieyra APRN.CNP Unavailable Ines MARIN, Dr. Washington Primary Care Provider Ines MARIN, Dr. Washington Referring Provider Nakita Claire Attending Provider Genesis MARIN, Dr. Lara Attending Provider Genesis MARIN, Dr. Lara Referring Provider Nakita Claire Referring Provider Georgina MARIN, Dr. Witt Attending Provider Dr. Douglas Jimenez DO Attending Provider FELIX BILL Attending Unavailable BILL, FELIX Corral Primary Care Unavailable BILL, FELIX Corral Primary Care Unavailable BILL, FELIX Corral Referring Unavailable BILL, FELIX Corral Primary Care Unavailable LISE RICHTER Attending Unavailable BILL, ELISEO Attending Unavailable BILL, ELISEO Primary Care Unavailable CIOCELISE Attending Unavailable BILL, FELIX Corral Primary Care Unavailable LYNN VIEYRA Attending Unavailable SELF Referring Unavailable BILL, ELISEO Primary Care Unavailable BILL, ELISEO Primary Care Unavailable LYNN VIEYRA Attending Unavailable Ines MARIN, Dr. Washington Primary Care Physician Ines MARIN, Dr. Washington Referring Provider Dr. Douglas Jimenez DO Attending Physician Lia Wilson Attending Physician Felix Bill Referring Unavailable Bill, Felix Primary Care Unavailable Douglas Jimenez Attending Unavailable Nakita Claire Attending Unavail able Felix Bill Referring Unavailable Bill, Felix Primary Care Unavailable Bill, Felix Referring Unavailable Bill, Felix Primary Care Unavailable Marco Hurtado Attending Unavailable Bill, Felix Referring Unavailable Bill, Felix Primary Care Unavailable ZakiyaAidaDouglas Attending Unavailable Bill, Felix Referring Unavailable Bill, Felix Primary Care Unavailable Juan Luis MARTINEZ, Lia Attending Unavailable Bill, Felix Referring Unavailable Bill, Felix Primary Care Unavailable Marco Hurtado Attending Unavailable Nakita Claire Referring Unavail able Bill, Felix Primary Care Unavailable Eduar Erickson Attending Unavailable Nakita Claire Attending Unavail able Nakita Claire Referring Unavail able Bill, Felix Primary Care Unavailable Nakita Claire Consulting Unavail able Bill, Felix Primary Care Unavailable Juan Luis IN STORE MARKETING ASSOCIATE, Lia Attending Unavailable Juan Luis IN STORE MARKETING ASSOCIATE, Lia Referring Unavailable Bill, Felix Primary Care Unavailable Genesis, Marco Attending Unavailable Marco Hurtado Referring Unavailable Bill, Felix Primary Care Unavailable Nakita Claire Consulting Unavail able Martin Neri Attending Unavailable Juan Luis MARTINEZ, Lia Referring Unavailable Juan Luis MARTINEZ, Lia Consulting Unavailable Medications Current Medications Medication Drug Class(es) Dates Sig (Normalized) Sig (Original) acetaminophen 500 mg oral capsule (20 sources) Start: 07-02-2023 take 1 capsule by mouth every six hours as needed for pain Acetaminophen 500 mg capsule Active 500 mg PO EVERY 6 HOURS as needed for pain July 02, 2023 1:00am Complies with drug therapy Start: 03-05-2023 take 1 tablet by ross th every twelve hours as needed acetaminophen (TYLENOL) 500 mg tablet Take 500 mg by mouth two times a day as needed for pain. 03/05/2023 Active Start: 03-05-2023 End: 03-15-2023 take 2 tablets by mouth every eight hours acetaminophen (Tylenol) 500 MG tablet Take 2 tablets (1,000 mg) by mouth in the morning and 2 tablets (1,000 mg) at noon and 2 tablets (1,000 mg) before bedtime. Do all this for 10 days. 30 tablet 0 03/05/2023 03/15/2023 Active Start: 02-28-2023 End: 03-05-2023 take 1 tablet by mouth every eight hours acetaminophen (Tylenol) tablet 1,000 mg Comment on above: Take 500 mg by mouth two times a day. amiodarone hydrochloride 200 mg oral tablet (8 sources) Antiarrhythmic Start: 03-05-20 End: 03-05-20 take 1 tablet by mouth once daily amiodarone (Pacerone) 200 MG tablet Take 1 tablet (200 mg) by mouth daily. 30 tablet 11 03/06/2023 03/05/2024 Active Start: 03-02-2023 End: 03-05-2023 amiodarone (Pacerone) tablet 400 mg amLODIPine 10 mg oral tablet (8 sources) Dihydropyridine Calcium Channel Paloma Start: 03-03-2023 End: 03-05-2024 take 1 tablet by mouth once daily amLODIPine (Norvasc) 10 MG tablet Take 1 tablet (10 mg) by mouth daily. 30 tablet 03/06/2023 03/05/2024 Active Start: 03-01-2023 End: 03-03-2023 amLODIPine (Norvasc) tablet 5 mg amoxicillin 875 mg / clavulanate 125 mg oral tablet (2 sources) Penicillin-class Antibacterial Start: 10-09-2022 End: 10-16-2022 take 1 tablet by mouth twice daily amoxicillin-clavulanic acid (AUGMENTIN) 875-125 mg per tablet Take 1 tablet by mouth twice daily for 7 days. 14 tablet 0 10/09/2022 10/16/2022 Active Comment on above: Take 1 tablet by mouth twice daily for 7 days. ascorbic acid 1000 mg oral tablet (20 sources) Vitamin C Start: 05-31-2021 take 1 g by mouth once daily Ascorbic Acid (Vitamin C) Active 1 GM PO DAILY May 31, 2021 1:00am Start: 05-31-2021 take 1 g by mouth once daily A scorbic Acid (Vitamin C) Active 1 GM PO DAILY May 31, 2021 12:00am Start: 01-21-2006 End: 04-09-2023 take 1 g by mouth once daily Ascorbic Acid (Vitamin C) 1,000 mg tablet Active 1 g PO DAILY May 31, 2021 1:00am Complies with drug therapy Comment on above: Take one(1) tablet d aily. aspirin 81 mg delayed release oral tablet (20 sources) Platelet Aggregation Inhibitor, Nonsteroidal Anti-inflammatory Drug Start: 01-25-20 End: 03-05-20 take 1 tablet by mouth once daily Aspirin (Adult Aspirin Regimen) 81 mg tablet,delayed release (DR/EC) Active 81 mg PO DAILY January 24, 2023 12:00am Complies with drug therapy Comment on above: Take 81 mg by mouth. Take 81 mg by mouth once daily. azithromycin 250 mg oral tablet (13 sources) Macrolide Antimicrobial Start: 10-10-19 End: 10-15-19 take 2 tablets by mouth once daily, then take 1 tablet by mouth once daily azithromycin (ZITHROMAX) 250 mg tablet Take 2 tablets by mouth once daily for 1 day, THEN 1 tablet once daily for 4 days. 6 tablet 0 10/09/2022 10/14/2022 Active Start: 08-19-2022 End: 12-18-2022 Azithromycin 250 mg tablet D iscontinued 0 PO .COMPLEX 6 0 August 19, 2022 12:00am December 18, 2022 11:25am Congestion of respiratory tract Cough Other specified respiratory disorders Cough, unspecified For 250 mg dose pack: take 500 mg today (day 1), then 250 mg for 4 days (days 2-5) PO Start: 08-19-2022 End: 12-18-2022 Azithromycin Discontinued 0 PO .COMPLEX 6 August 19, 2022 12:00am December 18, 2022 11:25am For 250 mg dose pack: take 500 mg today (day 1), then 250 mg for 4 days (days 2-5) PO Comment on above: Take 2 tablets by mo uth once daily for 1 day, THEN 1 tablet once daily for 4 days. Blood-Glucose Meter,Continuous (DEXCOM G7 HOME HEALTH NURSE LICENSED PRACTICAL) [facility] [place] ([place] sources[place] Start: 12-19-2022 Blood-Glucose Meter,Continuous (DEXCOM G7 HOME HEALTH NURSE LICENSED PRACTICAL) [facility] Dispense one lifter/driver USE FOR CONTINUOUS GLUCOSE MONITORING. INSULIN USE E11.9 1 Each 12/19/2022 Active Start: 12-19-2022 Blood-Glucose Meter,Continuous (DEXCOM G7 HOME HEALTH NURSE LICENSED PRACTICAL) misc Dispense one lifter/driver USE FOR CONTINUOUS GLUCOSE MONITORING. INSULIN USE E11.9 1 Each 0 12/19/2022 Active Comment on above: Dispense one receive r USE FOR CONTINUOUS GLUCOSE MONITORING. INSULIN USE E11.9 Blood-Glucose Sensor (DEXCOM G7 SENSOR) [facility] (20 sources) Start: 10-21-2024 Blood-Glucose Sensor (DEXCOM G7 SENSOR) rick CHANGE sensor every 10 days. USE FOR CONTINUOUS GLUCOSE MONITORING. INSULIN USE E11.9 10 each 3 10/21/2024 Active Start: 03-25-2024 End: 10-21-2024 Blood-Glucose Sensor (DEXCOM G7 SENSOR) rick CHANGE sensor every 10 days. USE FOR CONTINUOUS GLUCOSE MONITORING. INSULIN USE E11.9 10 Each 3 03/25/2024 10/21/2024 Discontinued Start: 03-25-2024 Blood-Glucose Sensor (DEXCOM G7 SENSOR) rick CHANGE sensor every 10 days. USE FOR CONTINUOUS GLUCOSE MONITORING. INSULIN USE E11.9 10 Each 3 03/25/2024 Active Start: 03-18-2023 End: 03-25-2024 Blood-Glucose Sensor (DEXCOM G7 SENSOR) rick CHANGE sensor every 10 days. USE FOR CONTINUOUS GLUCOSE MONITORING. INSULIN USE E11.9 10 Each 3 03/18/2023 03/25/2024 Discontinued Start: 03-18-2023 Blood-Glucose Sensor (DEXCOM G7 SENSOR) rick CHANGE sensor every 10 days. USE FOR CONTINUOUS GLUCOSE MONITORING. INSULIN USE E11.9 10 Each 3 03/18/2023 Active Start: 12-19-2022 End: 03-18-2023 Blood-Glucose Sensor (DEXCOM G7 SENSOR) rick CHANGE sensor every 10 days. USE FOR CONTINUOUS GLUCOSE MONITORING. INSULIN USE E11.9 10 Each 3 12/19/2022 03/18/2023 Discontinued Start: 12-19-2022 Blood-Glucose Sensor (DEXCOM G7 SENSOR) rick CHANGE sensor every 10 days. USE FOR CONTINUOUS GLUCOSE MONITORING. INSULIN USE E11.9 10 Each 3 12/19/2022 Active Comment on above: CHANGE sensor every 10 days. USE FOR CONTINUOUS GLUCOSE MONITORING. INSULIN USE E11.9 chondroitin sulfates 400 mg / glucosamine hydrochloride 500 mg oral capsule (20 sources) Start: 2 take 1 capsule by mouth once daily Glucosamine-Chond roitin Active 1 CAP PO DAILY May 31, 2021 1:00am give with meal/snack Start: 01-21-2006 Glucosamine-Ch ondroitin 500-400 mg capsule Active 1 NMA PO DAILY May 31, 2021 1:00am give with meal/snack Complies with drug therapy Start: 01-21-2006 GLUCOSAMINE CH ONDROITIN MAXSTR 500 MG-400 MG CAP Take by mouth. 0 01/21/2006 Active take 1 tablet by ross th three times daily glucosamine-chondroitin 500-400 MG table t Take 1 tablet by mouth 3 times daily. Active Comment on above: Take one(1) tablet d aily. Take by mouth. Take 1 capsule by mo sch once daily. dapagliflozin 10 mg oral tablet (20 sources) Sodium-Glucose Cotransporter 2 Inhibitor Start: 06-15-19 End: 05-08-19 take 1 tablet by mouth once daily Dapagliflozin Propanediol (Farxiga) 10 mg tablet Active 10 mg PO DAILY June 15, 2021 1:00am Complies with drug therapy Comment on above: Take 1 tablet by ross th daily with breakfast. Take 1 tablet by ross th once daily. enteric contrast (will be provided with radiology test) (1 source) Start: 01-08-20 End: 01-09-20 enteric contrast (will be provided with radiology test) Indications: Monoclonal gammopathy For CT CHESTABD/PEL W IVCON Routine order Administer, As Directed One Time Only, via Oral, Rectal, both Oral and Rectal, Enteric Tube, Stoma or Indwelling Catheter, Enteric Contrast as designated per enteric contrast guidelines 1 Each 0 01/07/2023 01/08/2023 Active Comment on above: For CT CHESTABD/PEL W IVCON Routine order Administer, As Directed One Time Only, via Oral, Rectal, both Oral and Rectal, Enteric Tube, Stoma or Indwelling Catheter, Enteric Contrast as designated per enteric contrast guidelines ferrous sulfate 325 mg oral tablet (20 sources) Start: 07-02-19 take 1 tablet by mouth once daily Ferrous Sulfate 325 mg (65 mg iron) tablet Active 325 mg PO DAILY July 02, 2023 1:00am Complies with drug therapy Start: 10-16-2022 End: 03-05-2023 take 325 mg by mouth once daily Ferrous Sulfate Active 325 MG PO DAILY July 02, 2023 1:00am Start: 10-16-2022 End: 12-02-2023 take 1 tablet by mouth every other day ferrous sulfate 325 mg (65 mg iron) tablet Take 1 tablet by mouth every other day. 30 tablet 0 10/16/2022 12/02/2023 Discontinued Comment on above: Take 1 tablet by ross th every other day. flaxseed oil (OMEGA 3 ORAL) (16 sources) take 1 capsule by mouth once daily flaxseed oil (OMEGA 3 ORAL) Take 1 capsule by mouth once daily. Active gabapentin 100 mg oral capsule (18 sources) Anti-epileptic Agent Start: 08-31-2024 End: 09-30-2024 take 1 capsule by mouth once daily at bedtime gabapentin (NEURONTIN) 100 mg capsule Take 1 capsule by mouth daily at bedtime for 30 days. 30 capsule 08/31/2024 Active Start: 08-29-2017 End: 05-02-2021 take 1 capsule by mouth once daily Gabapentin 300 mg capsule Discontinued 300 mg PO daily August 29, 2017 12:00am May 02, 2021 7:53am take 1 tablet by ross th once daily GABAPENTIN 300 MG CAPS One tablet by mouth daily GABAPENTIN [id number] Lizette F Shantell TIRE FIXER ibuprofen 800 mg oral tablet (8 sources) Nonsteroidal Anti-inflammatory Drug Start: 08-12-2024 take 1 tablet by mouth every eight hours as needed ibuprofen (MOTRIN) 800 mg tablet Take 1 tablet by mouth every 8 hours as needed for pain. 30 tablet 08/12/2024 Active 3 ml insulin glargine 100 unt/ml pen injector (20 sources) Insulin Analogue Start: 07-15-2023 Insulin Glarg ine (Lantus Solostar U-100 Insulin) 100 unit/mL (3 mL) insulin pen Active 12 U SC AT BEDTIME July 15, 2023 3:32pm Complies with drug therapy Start: 07-03-2023 End: 10-21-2024 insulin glargine (LANTUS TRUDI OSTAR U-100 INSULIN) 100 unit/mL (3 mL) Indications: Type 2 diabetes mellitus without complication, with long-term current use of insulin (HCC) Inject 12 Units subcutaneously daily at bedtime. 15 mL 2 10/21/2024 Active Start: 03-05-2023 End: 03-04-2024 inject 25 [IU] by subcutaneous injection once daily insulin glargine (Lantus) 100 UNIT/ML injection Inject 25 Units under the skin Nightly. 10 mL 12 03/05/2023 03/04/2024 Active Start: 03-05-2023 End: 03-05-2023 inject 30 [IU] by subcutaneous injection once daily insulin glargine (Lantus) 100 UNIT/ML injection Inject 30 Units under the skin Nightly. 10 mL 12 03/05/2023 03/05/2023 Discontinued (Reorder) Start: 03-03-2023 End: 03-05-2023 insulin glargine (Lantus) injection 30 Units Start: 03-02-2023 insulin glargi ne (Lantus) injection 6 Units Start: 03-02-2023 End: 03-03-2023 insulin glargine (Lantus) injection 24 Units Start: 08-14-2022 End: 07-03-2023 insulin glargine (LANTUS TRUDI OSTAR U-100 INSULIN) 100 unit/mL (3 mL) Indications: Diabetes mellitus type 2 with neurological manifestations (HCC) Inject 15 Units subcutaneously daily at bedtime. 10 Each 2 08/14/2022 07/03/2023 Discontinued (Adjust Sig - Block E-Cancel) Start: 08-14-2022 insulin glargi ne (LANTUS SOLOSTAR U-100 INSULIN) 100 unit/mL (3 mL) Indications: Diabetes mellitus type 2 with neurological manifestations (HCC) Inject 15 Units subcutaneously daily at bedtime. 10 Each 2 08/14/2022 Active Start: 06-14-2022 End: 07-15-2023 Insulin Glargine (Lantus Trudi ostar U-100 Insulin) 100 unit/mL (3 mL) insulin pen Discontinued 15 U SC AT BEDTIME June 14, 2022 3:02pm July 15, 2023 3:35pm Start: 06-14-2022 Insulin Glargi ne (Lantus Solostar U-100 Insulin) 100 unit/mL (3 mL) insulin pen Active 15 UNIT SC daily June 14, 2022 2:02pm Start: 03-06-2022 insulin glargi ne (LANTUS SOLOSTAR U-100 INSULIN) 100 unit/mL (3 mL) Indications: Diabetes mellitus type 2 with neurological manifestations (HCC) Inject 15 Units subcutaneously daily at bedtime. 10 Each 2 03/06/2022 Active Start: 03-06-2022 insulin glargi ne (LANTUS SOLOSTAR U-100 INSULIN) 100 unit/mL (3 mL) Indications: Diabetes mellitus type 2 with neurological manifestations (HCC) Inject 15 Units subcutaneously daily at bedtime. 10 Each 2 03/06/2022 Active Start: 05-31-2021 End: 06-14-2022 Insulin Glargine (Lantus Trudi ostar U-100 Insulin) 100 unit/mL (3 mL) insulin pen Discontinued 20 U SC daily May 31, 2021 4:36pm June 14, 2022 3:03pm Start: 05-21-2020 End: 03-06-2022 insulin glargine (LANTUS TRUDI OSTAR U-100 INSULIN) 100 unit/mL (3 mL) Indications: DM type 2, uncontrolled, with neuropathy Inject 20 Units subcutaneously daily at bedtime. 10 Pen 2 06/15/2021 03/06/2022 Discontinued Start: 08-29-2017 End: 05-31-2021 Insulin Glargine (Basaglar K wikpen U-100 Insulin) 100 unit/mL (3 mL) insulin pen Discontinued 18 U SC daily 15 3 October 21, 2017 12:00am May 31, 2021 4:38pm Type 2 diabetes mellitus without complications Start: 10-31-2016 End: 01-31-2025 LANTUS SOLOSTAR 100 UNIT/ML SOPN Inject 18 units daily INSULIN GLARGINE [id number] Kaitlynn Horton NP End: 03-05-2023 inject 15 [IU] by subcutaneous injection once daily insulin glargine (Lantus) 100 UNIT/ML injection Inject 15 Units under the skin Nightly. 0 03/05/2023 Discontinued (Stop taking at discharge) Comment on above: Inject 20 Units subc utaneously daily at bedtime. Inject 15 Units subc utaneously daily at bedtime. Inject 12 Units subc utaneously daily at bedtime. 3 ml insulin lispro 100 unt/ml pen injector (20 sources) Insulin Analog Start: 07-15-2023 Insulin Lispro (Humalog Kwikpen Insulin) 100 unit/mL insulin pen Active 4 U SC THREE TIMES A DAY July 15, 2023 3:33pm Sliding scale Complies with drug therapy Start: 05-15-2023 End: 07-15-2023 inject 4 [IU] by subcutaneous injection three times daily Insulin Lispro (Insulin Lispro 100 Unit/Ml Subcutaneous Pen) 100 unit/mL insulin pen Discontinued 4 U SC THREE TIMES A DAY May 15, 2023 1:00am July 15, 2023 3:35pm Start: 04-03-2023 End: 10-21-2024 insulin lispro (HUMALOG KWIK PEN INSULIN) 100 unit/mL Inject 4 units with meals PLUS sliding scale #1 (1 unit for every 50 over 150 PRE MEAL blood sugar) ~20 units daily 27 mL 3 10/21/2024 Active Start: 03-05-2023 End: 03-05-2023 Insulin Lispro (Humalog) 100 UNIT/ML solution injection Inject 0-12 Units under the skin 3 times daily (with meals). 10 mL 12 03/05/2023 03/05/2023 Discontinued (Stop taking at discharge) Start: 03-03-2023 End: 03-05-2023 Insulin Lispro (Humalog) injection 10 Units Start: 03-02-2023 End: 03-02-2023 Insulin Lispro (Humalog) injection 3 Units Start: 03-02-2023 End: 03-05-2023 Insulin Lispro (Humalog) injection 0-12 Units Start: 03-02-2023 End: 03-02-2023 Insulin Lispro (Humalog) injection 8 Units Start: 03-02-2023 End: 03-02-2023 Insulin Lispro (Humalog) injection 2 Units Start: 02-28-2023 End: 02-28-2023 Insulin Lispro (Humalog) injection 0-20 Units Comment on above: Inject 4 units with meals PLUS sliding scale #1 (1 unit for every 50 over 150 PRE MEAL blood sugar) ~20 units daily iv contrast (will be provided with radiology test) (3 sources) Start: 01-07-2023 End: 01-08-2023 iv contrast (will be provided with radiology test) Indications: Monoclonal gammopathy CT Chest ABD/PEL-Inject, intravenously, once for 1 dose.No IV access, insert saline lock prior to the beginning of sedation, infusion, injection of imaging exam. Discontinue saline lock post exam. If Pt. has a central line or IVAD, may access for administration according to line specific nursing protocol. Once exam is complete flush line and de-access according to line specific nursing protocol in the CT contrast administration guidelines link. 1 Each 0 01/07/2023 01/08/2023 Active Start: 10-09-2022 End: 10-10-2022 iv contrast (will be provide d with radiology test) Indications: Chest pain, unspecified type , Shortness of breath , Elevated d-dimer CT Chest PE -Inject, intravenously, once for 1 dose.No IV access, insert saline lock prior to the beginning of sedation, infusion, injection of imaging exam. Discontinue saline lock post exam. If Pt. has a central line or IVAD, may access for administration according to line specific nursing protocol. Once exam is complete flush line and de-access according to line specific nursing protocol in the CT contrast administration guidelines link. 1 Each 0 10/09/2022 10/10/2022 Start: 10-09-2022 End: 10-10-2022 iv contrast (will be provide d with radiology test) Indications: Chest pain, unspecified type , Shortness of breath , Elevated d-dimer CT Chest PE -Inject, intravenously, once for 1 dose.No IV access, insert saline lock prior to the beginning of sedation, infusion, injection of imaging exam. Discontinue saline lock post exam. If Pt. has a central line or IVAD, may access for administration according to line specific nursing protocol. Once exam is complete flush line and de-access according to line specific nursing protocol in the CT contrast administration guidelines link. 1 Each 0 10/09/2022 10/10/2022 Active Comment on above: CT Chest PE -Inject, intravenously, once for 1 dose.No IV access, insert saline lock prior to the beginning of sedation, infusion, injection of imaging exam. Discontinue saline lock post exam. If Pt. has a central line or IVAD, may access for administration according to line specific nursing protocol. Once exam is complete flush line and de-access according to line specific nursing protocol in the CT contrast administration guidelines link. CT Chest ABD/PEL-Inj ect, intravenously, once for 1 dose.No IV access, insert saline lock prior to the beginning of sedation, infusion, injection of imaging exam. Discontinue saline lock post exam. If Pt. has a central line or IVAD, may access for administration according to line specific nursing protocol. Once exam is complete flush line and de-access according to line specific nursing protocol in the CT contrast administration guidelines link. Lecithin (16 sources) take 1 tablet by mouth once daily LECITHIN ORAL Take 1 tablet by mouth once daily. Active Multiple Vitamins-Minerals (multivitamin with minerals) tablet (14 sources) take 1 tablet by mouth once daily Multiple Vitamins-Minerals (multivitamin with minerals) tablet Take 1 tablet by mouth daily. Active take 1 tablet by mouth once abbi y Multiple Vitamins-Minerals (multivitamin with minerals) tablet Take 1 tablet by mouth daily. 0 Suspended take 1 tablet by mouth once abbi y Multiple Vitamins-Minerals (multivitamin with minerals) tablet Take 1 tablet by mouth daily. 0 Active Multivitamin preparation (10 sources) Start: 05-31-2021 take 1 tablet by mouth once daily Multivitamin Active 1 TABLET PO DAILY May 31, 2021 1:00am Start: 05-31-2021 take 1 tablet by ross once daily Multivitamin Active 1 TABLET PO DAILY May 31, 2021 12:00am MULTIVITAMIN TAB (20 sources) Start: 01-30-2005 take 1 tablet by mouth once daily MULTIVITAMIN TAB Take 1 tablet by mouth once daily. 0 01/30/2005 Active Start: 01-30-2005 MULTIVITAMIN T AB Take one(1) tablet daily. 0 01/30/2005 Active Comment on above: Take one(1) tablet d aily. Multivitamin tablet (2 sources) Start: 05-31-2021 Multivitamin tablet Active 1 {tbl} PO DAILY May 31, 2021 1:00am Complies with drug therapy Start: 05-31-2021 Multivitamin t ablet Active 1 {tbl} PO DAILY May 31, 2021 1:00am OTC PRODUCT (20 sources) take 2 tablets by mo [facility] once daily OTC PRODUCT Shaklee Iron: Take two tablets by mouth once daily. Active OTC PRODUCT Tc sweetie Iron: Take two tablets by mouth once daily. 0 Active Comment on above: Shaklee Iron: Take t wo tablets by mouth once daily. oxyCODONE hydrochloride 5 mg oral tablet (4 sources) Opioid Agonist Start: 03-05-2023 End: 03-10-2023 take 1 tablet by mouth every six hours as needed for pain oxyCODONE (Roxicodone) 5 MG immediate release tablet Indications: CAD in [place] artery , Aortic valve stenosis, etiology of cardiac valve disease unspecified , Coronary artery disease involving [place] coronary artery of [place] heart, unspecified whether angina present Take 1 tablet (5 mg) by mouth every 6 hours as needed for moderate pain (4-6) for up to 5 days. 15 tablet 0 03/05/2023 03/10/2023 Active Start: 02-28-2023 End: 03-05-2023 take 1 tablet by mouth every six hours as needed for pain oxyCODONE (Roxicodone) immediate release tablet 5 mg ramipril 5 mg oral capsule (20 sources) Angiotensin Converting Enzyme Inhibitor Start: 08-29-2017 End: 08-03-2024 take 1 capsule by mouth once daily Ramipril 5 mg capsule Active 5 mg PO DAILY May 31, 2021 1:00am Complies with drug therapy Comment on above: Take 1 capsule by [facility] once daily. rosuvastatin calcium 40 mg oral tablet (20 sources) HMG-CoA Reductase Inhibitor Start: 03-05-2023 End: 12-16-2024 take 1 tablet by mouth once daily Rosuvastatin 40 mg tablet Active 40 mg PO DAILY 90 3 December 16, 2024 5:26pm Complies with drug therapy Start: 03-02-2023 End: 03-05-2023 rosuvastatin (Crestor) table t 40 mg triamcinolone acetonide 1 mg/ml topical cream (4 sources) Corticosteroid Start: 08-26-2024 Triamcinolone Acetonide 0.1 % cream Active 1 NMA TOPICAL THREE TIMES A DAY as needed August 26, 2024 12:00am Complies with drug therapy Start: 08-26-2024 Triamcinolone Acetonide 0.1 % cream Active 1 NMA TOPICAL THREE TIMES A DAY as needed August 26, 2024 12:00am Start: 08-12-2024 End: 08-26-2024 triamcinolone acetonide (ABHAY ALOG) 0.1 % cream Apply 1 application to affected area three times a day as needed for up to 14 days. 30 g 1 08/12/2024 08/26/2024 Active Completed/Discontinued Medications Medication Drug Class(es) Dates Sig (Normalized) Sig (Original) 20 ml albumin human, half-way 250 mg/ml injection (8 sources) Human Serum Albumin Start: 03-01-2023 End: 03-01-2023 albumin human 25 % IV solution - Pyxis ADS Override Pull Start: 02-28-2023 End: 03-01-2023 albumin human 25 % IV soluti on 50 g Start: 02-28-2023 End: 03-01-2023 albumin human 25 % IV soluti on 25 g amiodarone (Nexterone) 150 m g in dextrose 5 % 100 mL IVPB (4 sources) Start: 03-01-2023 End: 03-01-2023 amiodarone (Nexterone) 150 m g in dextrose 5 % 100 mL IVPB Start: 03-01-2023 End: 03-01-2023 amiodarone (Nexterone) 150 m g in dextrose 5 % 100 mL IVPB amoxicillin 500 mg oral tablet (6 sources) Penicillin-class Antibacterial Start: 01-14-2024 End: 02-02-2025 take 4 tablets by mouth once Amoxicillin 500 mg tablet Discontinued 2000 mg PO ONCE 4 January 14, 2024 11:32am July 29, 2024 8:22am take one hour prior to your dental cleaning apixaban 5 mg oral tablet (9 sources) Factor Xa Inhibitor Start: 03-04-2023 End: 04-09-2023 take 1 tablet by mouth twice daily apixaban (Eliquis) 5 MG tablet Take 1 tablet (5 mg) by mouth 2 times daily. 60 tablet 0 03/05/2023 04/09/2023 Discontinued (Therapy completed) ASCORBIC ACID-ASCORBATE CALC ORAL (12 sources) Start: 05-31-2021 End: 12-02-2023 ASCORBIC ACID-ASCORBATE CALC ORAL Take 1 g by mouth. 0 05/31/2021 12/02/2023 Discontinued Start: 05-31-2021 ASCORBIC ACID- ASCORBATE CALC ORAL Take 1 g by mouth. 0 05/31/2021 Active Comment on above: Take 1 g by mouth. balsalazide disodium 750 mg oral capsule (13 sources) Aminosalicylate Start: 8 End: take 1 capsule by mouth three times daily Balsalazide 750 mg capsule Discontinued 1500 mg PO THREE TIMES A DAY August 29, 2017 12:00am May 02, 2021 7:53am Start: 08-29-2017 End: 05-02-2021 take 1500 mg by mouth three times daily Balsalazide Discontinued 1500 MG PO THREE TIMES A DAY August 29, 2017 12:00am May 02, 2021 7:53am take 2 tablets by mo uth three times daily BALSALAZIDE DISODIUM 750 MG CAPS Take two tablets by mouth Three times a day BALSALAZIDE DISODIUM [id number] Lizette Stinson LPN benzonatate 200 mg oral capsule (11 sources) Non-narcotic Antitussive Start: 08-20-2022 End: 12-18-2022 take 1 capsule by mouth three times daily as needed for cough Benzonatate 200 mg capsule Discontinued 200 mg PO THREE TIMES A DAY as needed for cough 20 0 August 20, 2022 12:00am December 18, 2022 11:25am bisacodyl 5 mg delayed release oral tablet (4 sources) Stimulant Laxative Start: 06-06-2023 End: 07-15-2023 take 1 tablet by mouth once daily Bisacodyl (Gentle Laxative (Bisacodyl)) 5 mg tablet,delayed release (DR/EC) Discontinued 5 mg PO DAILY June 06, 2023 1:00am July 15, 2023 3:32pm calcium chloride 0.0014 meq/ml / potassium chloride 0.004 meq/ml / sodium chloride 0.103 meq/ml / sodium lactate 0.028 meq/ml injectable solution (4 sources) Start: 02-28-2023 End: 03-01-2023 lactated ringers bolus 500 mL ceFAZolin 2000 mg injection (2 sources) Cephalosporin Antibacterial Start: 02-28-2023 End: 03-02-2023 take 2000 mg intravenously every eight hours ceFAZolin in dextrose 4% (Ancef) IVPB 2,000 mg chlorhexidine gluconate 1.2 mg/ml mouthwash (6 sources) Start: 02-28-2023 End: 03-05-2023 chlorhexidine (Peridex) 0.12 % solution 15 mL Start: 02-21-2023 End: 03-05-2023 chlorhexidine (Peridex) 0.12 % solution Use 15 mL in the mouth or throat Once for 1 dose. Swish for 30 seconds and spit out the night before surgery. Do not swallow. 15 mL 0 02/21/2023 03/05/2023 Discontinued (Stop taking at discharge) cholecalciferol 9.52 unt/ml / glucose 357 mg/ml oral gel (2 sources) Vitamin D Start: 02-28-2023 End: 03-05-2023 glucose oral gel 15 g codeine phosphate 2 mg/ml / guaiFENesin 20 mg/ml oral solution (3 sources) Opioid Agonist Start: 10-08-2022 End: 10-15-2022 take 5-10 mL by mouth every eight hours as needed for cough and cough codeine-guaiFENesin (ROBITUSSIN AC) 10-100 mg/5 mL syrup Indications: Acute cough Take 5-10 mL by mouth three times daily as needed for up to 7 days. 118 mL 0 10/08/2022 10/15/2022 Comment on above: Take 5-10 mL by mout h three times daily as needed for up to 7 days. dexamethasone 4 mg oral tablet (2 sources) Corticosteroid Start: 10-17-2023 End: 11-14-2023 take 5 tablets by mouth every week Dexamethasone 4 mg tablet Discontinued 20 mg PO EVERY WEEK 20 28 0 October 17, 2023 12:00am November 13, 2023 12:00am November 14, 2023 12:05am 100 ml dexmedetomidine 0.004 mg/ml injection (2 sources) Central alpha-2 Adrenergic Agonist Start: 02-28-2023 End: 03-01-2023 dexmedeTOMIDine in NS (Precedex) 400 mcg in 100 mL (4 mcg/mL) infusion dextromethorphan hydrobromide 2 mg/ml / guaiFENesin 20 mg/ml oral solution (11 sources) Uncompetitive E-jpewkz-W-aspartat e Receptor Antagonist, Sigma-1 Agonist Start: 08-19-2022 End: 08-20-2022 take 1 mL by mouth every four hours as needed for cough Dextromethorphan-Gu aifenesin (Diabetic Tussin Dm) 10-100 mg/5 mL liquid Discontinued 10 mL PO Q4H as needed for cough 120 0 August 19, 2022 12:00am August 20, 2022 11:40am Cough Congestion of respiratory tract Discharge of eye Cough, unspecified Other specified respiratory disorders Other specified disorders of eye and adnexa Start: 08-19-2022 End: 08-20-2022 take 1 mL by mouth every four hours Dextromethorphan-Guaifenesin (Diabetic T ussin Dm) 10-100 mg/5 mL liquid Discontinued 10 ML PO Q4H 120 August 19, 2022 12:00am August 20, 2022 11:40am 250 ml DOBUTamine 1 mg/ml injection (2 sources) beta-Adrenergic Agonist Start: 03-01-2023 End: 03-02-2023 DOBUTamine (Dobutrex) 250 mg in dextrose 5 % 250 mL infusion (premix) docusate sodium 50 mg / sennosides, half-way 8.6 mg oral tablet (2 sources) Start: 02-28-2023 End: 03-05-2023 senna-docusate sodium (Senokot-S) 8.6-50 MG tablet 2 tablet 0.4 ml enoxaparin sodium 100 mg/ml prefilled syringe (2 sources) Low Molecular Weight Heparin Start: 03-02-2023 End: 03-04-2023 enoxaparin (Lovenox) syringe 40 mg flash glucose scanning reader (FREESTYLE ROSY 2 READER) (3 sources) Start: 06-21-2021 End: 09-12-2021 flash glucose scanning reader (FREESTYLE ROSY 2 READER) Indications: DM type 2, uncontrolled, with neuropathy Check 4 times a day. Dx: E11.40; E11.65. Insulin: Yes. Fluctuating blood sugar. Hypertension. 1 Each 0 06/21/2021 09/12/2021 Discontinued (Cost of medication) Start: 06-21-2021 flash glucose scanning reader (FREESTYLE ROSY 2 READER) Indications: DM type 2, uncontrolled, with neuropathy Check 4 times a day. Dx: E11.40; E11.65. Insulin: Yes. Fluctuating blood sugar. Hypertension. 1 Each 0 06/21/2021 Active Comment on above: Check 4 times a day. Dx: E11.40; E11.65. Insulin: Yes. Fluctuating blood sugar. Hypertension. flash glucose sensor (FREESTYLE ROSY 2 SENSOR) kit (3 sources) Start: 06-21-2021 End: 09-12-2021 flash glucose sensor (FREESTYLE ROSY 2 SENSOR) kit Indications: DM type 2, uncontrolled, with neuropathy Check 4 times a day. Dx: E11.40. E11.65. Insulin: Yes. Fluctuating blood sugar. Hypertension. 2 Kit 5 06/21/2021 09/12/2021 Discontinued (Cost of medication) Start: 06-21-2021 flash glucose sensor (FREESTYLE ROSY 2 SENSOR) kit Indications: DM type 2, uncontrolled, with neuropathy Check 4 times a day. Dx: E11.40. E11.65. Insulin: Yes. Fluctuating blood sugar. Hypertension. 2 Kit 5 06/21/2021 Active Comment on above: Check 4 times a day. Dx: E11.40. E11.65. Insulin: Yes. Fluctuating blood sugar. Hypertension. furosemide 40 mg oral tablet (20 sources) Loop Diuretic Start: 3 End: take 1 tablet by mouth once daily Furosemide 40 mg tablet Discontinued 40 mg PO DAILY July 02, 2023 1:00am July 15, 2023 3:32pm Start: 03-11-2023 End: 03-21-2023 take 1 tablet by mouth once daily furosemide (Lasix) 80 MG tablet Take 1 tablet (80 mg) by mouth daily for 10 days. 10 tablet 0 03/11/2023 03/21/2023 Active Start: 03-03-2023 End: 03-03-2023 furosemide (Lasix) injection 40 mg Start: 03-01-2023 End: 03-01-2023 furosemide (Lasix) injection 20 mg Comment on above: Take 40 mg by mouth. glimepiride 1 mg oral tablet (20 sources) Sulfonylurea Start: 05-31-19 End: 06-15-19 take 2 tablets by mouth once daily before breakfast Glimepiride 1 mg tablet Discontinued 2 mg PO once daily before breakfast May 31, 2021 4:33pm June 15, 2021 3:37pm Start: 05-31-2021 End: 06-15-2021 take 2 mg by mouth once daily before breakfast Glimepiride Discontinued 2 MG PO once daily before breakfast May 31, 2021 4:33pm June 15, 2021 3:37pm Start: 08-29-2017 End: 05-31-2021 take 1 tablet by mouth once daily in the morning Glimepiride 1 mg tablet Discontinued 1 mg PO EVERY MORNING August 29, 2017 12:00am May 31, 2021 4:36pm take 1 tablet by ross once daily GLIMEPIRIDE 1 MG TABS One tablet by mouth daily GLIMEPIRIDE [id number] Kaitlynn Horton [employer] Comment on above: Take two(2) tablets with breakfast. Take two(2) tablets with lunch. Take 1/2 hour before meals. glipiZIDE er 10 mg 24 hr extended release oral tablet (20 sources) Sulfonylurea Start: 10-30-19 take 1 tablet by mouth once daily at breakfast glipiZIDE (GLUCOTROL XL) 10mg 24 hr tablet Indications: Diabetes mellitus type 2 with neurological manifestations (HCC) Take 1 tablet by mouth daily with breakfast. 90 tablet 3 10/29/2022 Active Start: 03-06-2022 End: 10-29-2022 take 2 tablets by mouth once daily at breakfast glipiZIDE (GLUCOTROL XL) 5 mg 24 hr tablet Indications: Diabetes mellitus type 2 with neurological manifestations (HCC) Take 2 tablets by mouth daily with breakfast. 03/06/2022 10/29/2022 Discontinued Start: 11-29-2021 End: 04-16-2023 take 1 tablet by mouth twice daily Glipizide 5 mg tablet Discontinued 5 mg PO TWICE A DAY November 29, 2021 12:00am April 16, 2023 2:08pm Start: 11-06-2021 End: 03-06-2022 take 1 tablet by mouth twice daily before mealtime glipiZIDE (GLUCOTROL XL) 5 mg 24 hr tablet Indications: Diabetes mellitus type 2 with neurological manifestations (HCC) Take 1 tablet by mouth twice daily before meals. 180 tablet 2 11/07/2021 03/06/2022 Discontinued Start: 09-29-2021 End: 11-06-2021 take 1 tablet by mouth once daily at breakfast glipiZIDE (GLUCOTROL XL) 5 mg 24 hr tablet Indications: Diabetes mellitus type 2 with neurological manifestations (HCC) Take 1 tablet by mouth daily with breakfast. 30 tablet 2 09/29/2021 11/06/2021 Discontinued take 2 tablets by mo uth once daily glipiZIDE (Glucotrol) 5 MG tablet Take 10 mg by mouth daily. Active Comment on above: Take 1 tablet by ross th daily with breakfast. Take 1 tablet by ross th twice daily before meals. Take 2 tablets by mo uth daily with breakfast. glucagon (rdna) 1 mg injection (2 sources) Antihypoglycemic Agent Start: 02-28-2023 End: 03-05-2023 glucagon (human recombinant) injection 1 mg GLUCOSAMINE CHONDROITIN MAXSTR 500 MG-400 MG CAP (4 sources) Start: 01-21-2006 GLUCOSAMINE CHONDROITIN MAXSTR 500 MG-400 MG CAP Take one(1) tablet daily. 0 01/21/2006 Active Comment on above: Take one(1) tablet d aily. 150 ml glucose 50 mg/ml injection (4 sources) Start: 02-28-2023 End: 03-05-2023 dextrose 50 % solution 12.5 g Start: 02-28-2023 End: 03-05-2023 dextrose 5 % infusion INSULIN PEN NEEDLE (1 source) Start: 07-13-2016 End: 10-13-2024 PEN NEEDLES 32G X 4 MM MISC Use daily with insulin INSULIN PEN NEEDLE [id number] Kaitlynn Horton [employer] 100 ml insulin, regular, human 1 unt/ml injection (2 sources) Insulin Start: 02-28-2023 End: 03-02-2023 insulin regular 100 units in 100 mL NS (Myxredlin) infusion (premix) lidocaine 0.04 mg/mg medicated patch (2 sources) Antiarrhythmic, Amide Local Anesthetic Start: 02-28-2023 End: 03-05-2023 Lidocaine 4 % patch 1 patch magnesium hydroxide 80 mg/ml oral suspension (2 sources) Start: 03-02-2023 End: 03-03-2023 magnesium hydroxide (Milk of Magnesia) 400 MG/5ML suspension 30 mL magnesium sulfate IVPB premix 2,000 mg (2 sources) Start: 02-28-2023 End: 03-05-2023 magnesium sulfate IVPB premix 2,000 mg meloxicam 15 mg oral tablet (1 source) Nonsteroidal Anti-inflammatory Drug Start: 01-28-2018 End: 01-04-2021 take 1 tablet by mouth once daily at mealtime meloxicam (MOBIC) 15 mg tablet Indications: Primary osteoarthritis of right knee Take 1 tablet by mouth once daily. With food. [facility] 0 01/28/2018 01/04/2021 Discontinued Comment on above: Take 1 tablet by mouth once daily. With food. [facility]. mesalamine 1200 mg delayed release oral tablet (20 sources) Aminosalicylate Start: 08-01-2021 End: 12-07-2024 take 1 tablet by mouth twice daily Mesalamine 1.2 gram tablet,delayed release (DR/EC) Discontinued 1.2 g PO TWICE A DAY 180 3 December 07, 2024 9:08am December 07, 2024 9:58am Start: 06-12-2021 End: 11-29-2021 take 2 tablets by mouth twice daily Mesalamine 1.2 gram tablet,delayed release (DR/EC) Discontinued 0 .ROUTE .COMPLEX 224 2 October 16, 2021 11:32am November 29, 2021 11:34am TAKE 2 TABLETS BY MOUTH TWICE A DAY FOR 8 WEEK Start: 06-12-2021 End: 08-01-2021 take 2.4 g by mouth twice daily Mesalamine Discontinued 2.4 GM PO TWICE A DAY 224 56 June 12, 2021 1:00am August 01, 2021 12:31pm Start: 05-31-2021 End: 06-12-2021 Mesalamine 1,000 mg supposit ory Discontinued 1 g RC AT BEDTIME May 31, 2021 1:00am June 12, 2021 10:53am Start: 05-31-2021 End: 06-12-2021 Mesalamine Discontinued 1 GM RC AT BEDTIME May 31, 2021 1:00am June 12, 2021 10:53am Start: 05-03-2021 End: 05-31-2021 take 2 tablets by mouth once daily Mesalamine 1.2 gram tablet,delayed release (DR/EC) Discontinued 2.4 g PO DAILY 180 90 3 May 03, 2021 1:00am May 31, 2021 4:37pm Start: 05-03-2021 End: 05-31-2021 take 2.4 g by mouth once daily Mesalamine Discontinued 2.4 GM PO DAILY 180 90 May 03, 2021 1:00am May 31, 2021 4:37pm Start: 11-09-2019 End: 06-15-2021 mesalamine (CANASA) 1,000 mg suppository UNWRAP AND INSERT 1 SUPPOSITORY BY RECTAL ROUTE DAILY AT BEDTIME. 90 Suppository 3 11/09/2019 06/15/2021 Discontinued (Discontinued by another Health Care Provider) Start: 08-29-2017 End: 05-02-2021 Mesalamine (Canasa) 1,000 mg suppository Discontinued 1 g RC AT BEDTIME August 29, 2017 12:00am May 02, 2021 7:52am Start: 08-29-2017 End: 05-02-2021 Mesalamine (Canasa) 1,000 mg suppository Discontinued 1 GM RC AT BEDTIME August 29, 2017 12:00am May 02, 2021 7:52am mesalamine (Lial da) 1.2 g EC tablet Take 2,400 mg by mouth daily (with breakfast). Do not crush, chew, or split. Active CANASA 1000 MG S UPP One Suppository rectally each day. MESALAMINE [id number] Kaitlynn Horton NP Comment on above: Take 2 tablets by [facility] once daily. Per Dr. Jeff Jimenez. UNWRAP AND INSERT 1 SUPPOSITORY BY RECTAL ROUTE DAILY AT BEDTIME. metoprolol tartrate 25 mg oral tablet (20 sources) beta-Adrenergic [place] Start: 03-19-2023 End: 03-18-2024 take 0.5 tablet by mouth twice daily metoprolol tartrate (Lopressor) 25 MG tablet Take 0.5 tablets (12.5 mg) by mouth 2 times daily. 30 tablet 1 04/03/2023 Active Start: 03-05-2023 metoprolol tar trate, short acting, (LOPRESSOR) 25 mg tablet 12.5 mg. 0 03/05/2023 Active Start: 03-01-2023 End: 05-18-2024 take 1 tablet by mouth twice daily Metoprolol Tartrate 25 mg tablet Discontinued 25 mg PO TWICE A DAY 180 3 June 07, 2023 11:07am May 18, 2024 4:46pm Start: 03-01-2023 metoprolol tar trate (Lopressor) injection 2.5 mg Start: 03-01-2023 metoprolol tar trate (Lopressor) 5 MG/5ML injection - Pyxis ADS Override Pull Comment on above: 12.5 mg. Take 25 mg by mouth two times a day. 1 ml morphine sulfate 4 mg/ml cartridge (2 sources) Opioid Agonist Start: 02-28-2023 End: 02-28-2023 morphine injection 4 mg Start: 02-28-2023 End: 02-28-2023 morphine injection 4 mg mupirocin 0.02 mg/mg topical ointment (7 sources) RNA Synthetase Inhibitor Antibacterial Start: 02-28-2023 End: 03-03-2023 mupirocin (Bactroban) 2 % ointment Start: 02-21-2023 End: 03-05-2023 mupirocin (Bactroban) 2 % oi ntment Apply liberal amount per nostril the night before surgery and then again the morning of surgery 1 g 0 02/21/2023 03/05/2023 Discontinued (Stop taking at discharge) 100 ml sodium nitroprusside 0.5 mg/ml injection (4 sources) Start: 02-28-2023 End: 03-02-2023 nitroprusside in sodium chloride 0.9 % (500 mcg/mL) (Nipride) infusion Start: 02-28-2023 End: 02-28-2023 nitroprusside in sodium chlo ride 0.9 % (500 mcg/mL) (Nipride) 50-0.9 MG/100ML-% infusion - Pyxis ADS Override Pull norepinephrine (Levophed) 16 mg in 0.9% sodium chloride 250 mL infusion (weight based) (premix) (2 sources) Start: 03-01-2023 End: 03-02-2023 norepinephrine (Levophed) 16 mg in 0.9% sodium chloride 250 mL infusion (weight based) (premix) norepinephrine in sodium chloride 0.9 % (Levophed) 64 mcg/mL infusion - Pyxis ADS Override Pull (2 sources) Start: 03-01-2023 End: 03-01-2023 norepinephrine in sodium chloride 0.9 % (Levophed) 64 mcg/mL infusion - Pyxis ADS Override Pull ondansetron ODT (Zofran-ODT) disintegrating tablet 4 mg (2 sources) Start: 02-28-2023 End: 03-05-2023 take 1 tablet by mouth every eight hours as needed for nausea and vomiting ondansetron ODT (Zofran-ODT) disintegrating tablet 4 mg pantoprazole 40 mg delayed release oral tablet (20 sources) Proton Pump Inhibitor Start: 03-01-2023 End: 03-05-2024 take 1 tablet by mouth once daily Pantoprazole 40 mg tablet,delayed release (DR/EC) Discontinued 40 mg PO DAILY July 02, 2023 1:00am July 15, 2023 3:34pm Start: 03-01-2023 End: 03-01-2023 pantoprazole (ProtoNix) inje ction 40 mg Comment on above: Take 40 mg by mouth. perflutren lipid microspheres 1.3 mL in NaCl (PF) 0.9% 10 mL injection (DEFINITY) (1 source) Start: 09-15-19 End: 03-16-20 perflutren lipid microspheres 1.3 mL in NaCl (PF) 0.9% 10 mL injection (DEFINITY) polyethylene glycol 3350 57175 mg powder for oral solution (2 sources) Osmotic Laxative Start: 02-29-20 End: 03-05-20 polyethylene glycol (PEG) 3350 (Miralax) packet 17 g polymyxin b 98905 unt/ml / trimethoprim 1 mg/ml ophthalmic solution (20 sources) Dihydrofolate Reductase Inhibitor Antibacterial, Polymyxin-class Antibacterial Start: 08-28-19 End: 12-02-19 take 2 drop(s) into the eye(s) twice daily trimethoprim-polymy adiel (POLYTRIM) 10,000 unit- 1 mg/mL ophthalmic solution Use 2 Drops in both eyes twice daily. Use for 7 days. 10 mL 08/27/2022 12/02/2023 Discontinued Comment on above: Use 2 Drops in both eyes twice daily. Use for 7 days. microencapsulated potassium chloride 10 meq extended release oral tablet (2 sources) Start: 03-01-20 End: 03-05-20 potassium chloride CR (Klor-Con M10) ER tablet 20 mEq 100 ml propofol 10 mg/ml injection (2 sources) General Anesthetic Start: 02-29-20 End: 03-01-20 propofol (Diprivan) infusion 1000 ml sodium chloride 9 mg/ml injection (7 sources) Start: 03-01-20 End: 03-05-20 sodium chloride 0.9 % infusion Start: 02-28-2023 End: 03-02-2023 sodium chloride 0.45 % infus ion Start: 02-28-2023 End: 11-06-2023 sodium chloride 0.9% (NS) fl ush 10 mL Start: 09-14-2020 End: 03-16-2021 sodium chloride 0.9 % (flush ) 10 mL (BD POSIFLUSH) 5 ml sugammadex 100 mg/ml injection (2 sources) Start: 02-28-2023 End: 02-28-2023 sugammadex (Bridion) injection 265 mg sulfaSALAzine 500 mg oral tablet (20 sources) Aminosalicylate Start: 05-31-2021 End: 06-12-2021 take 1 tablet by mouth twice daily at mealtime Sulfasalazine 500 mg tablet Discontinued 1.5 g PO TWICE A DAY May 31, 2021 1:00am June 12, 2021 10:53am give with food (meal/snack) Start: 05-31-2021 End: 06-12-2021 take 1.5 g by mouth twice daily at mealtime Sulfasalazine Discontinued 1.5 GM PO TWICE A DAY May 31, 2021 1:00am June 12, 2021 10:53am give with food (meal/snack) Start: 05-02-2021 End: 05-03-2021 take 1 tablet by mouth twice daily at mealtime Sulfasalazine 500 mg tablet Discontinued 0.5 g PO TWICE A DAY May 02, 2021 1:00am May 03, 2021 10:43am give with food (meal/snack) Start: 05-02-2021 End: 05-03-2021 take 0.5 g by mouth twice daily at mealtime Sulfasalazine Discontinued 0.5 GM PO TWICE A DAY May 02, 2021 1:00am May 03, 2021 10:43am give with food (meal/snack) Start: 08-23-2020 End: 01-03-2021 take 3 tablets by mouth twice daily sulfaSALAzine (AZULFIDINE) 500 mg tablet TAKE 3 TABLETS BY MOUTH TWICE A DAY 540 tablet 1 08/23/2020 01/03/2021 Discontinued Comment on above: TAKE 3 TABLETS BY [facility] TWICE A DAY valACYclovir 1000 mg oral tablet (5 sources) Herpesvirus Nucleoside Analog DNA Polymerase Inhibitor, Herpes Simplex Virus Nucleoside Analog DNA Polymerase Inhibitor, Herpes Zoster Virus Nucleoside Analog DNA Polymerase Inhibitor Start: 08-12-2024 End: 08-19-2024 valACYclovir (VALTREX) 1 gram tablet Take 1 tablet by mouth three times a day for 7 days. for 7 days 21 tablet 08/12/2024 08/19/2024 Start: 09-10-2022 End: 10-12-2022 take 1 tablet by mouth once daily valACYclovir (VALTREX) 500 mg tablet Take 500 mg by mouth once daily. X 10 days 0 09/10/2022 10/12/2022 Discontinued (Course of therapy completed) Comment on above: Take 500 mg by mouth once daily. X 10 days Problems Active Problems Problem Classification Problem Date Documented Da te Episodic/Chronic Administrative/social admission (1 source) Patient encounter status; Translations: [Dietary counseling and surveillance] Episodic Coronary atherosclerosis and other heart disease (20 sources) Coronary arteriosclerosis; Translations: [Atherosclerotic heart disease of [place] coronary artery without angina pectoris] Onset: 02-17-2023 02-19-2023 Chronic Coronary atherosclerosis and other heart disease (10 sources) Presence of aortocoronary bypass graft; Translations: [Aortocoronary bypass status] Onset: 04-09-2023 Episodic Deficiency and other anemia (19 sources) Iron deficiency anemia due to blood loss; Translations: [Iron deficiency anemia secondary to blood loss (chronic)] Onset: 07-25-2023 12-02-2023 Chronic Deficiency and other anemia (1 source) Iron deficiency anemia secondary to blood loss (chronic); Translations: [Iron deficiency anemia due to chronic blood loss] Onset: 12-02-2023 Chronic Deficiency and other anemia (20 sources) Anemia; Translations: [Anemia, unspecified] Onset: 03-01-2006 07-31-2006 Episodic Comment on above: Iron Profile is christopher ected now. HGB was 11.6 on 08/05/2024 Deficiency and other anemia (3 sources) Anemia, unspecified; Translations: [Anemia, unspecified] Onset: 03-11-2025 07-15-2023 Episodic Deficiency and other anemia (2 sources) Iron deficiency anemia, unspecified; Translations: [Iron deficiency anemia, unspecified] Onset: 02-23-2025 Episodic Diabetes mellitus with complications (20 sources) Disorder of nervous system due to type 2 diabetes mellitus; Translations: [Type 2 diabetes mellitus with other diabetic neurological complication] Onset: 01-11-2014 Resolved: 10-21-2015 Chronic Diabetes mellitus without complication (20 sources) Type 2 diabetes mellitus; 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 Patient having no issues. Feels well. Labs done by his PCP. A1c in range. BP controlled. Disorders of lipid metabolism (20 sources) Hypercholesterolemia; Translations: [Hyperlipidemia] Onset: 03-17-2015 Resolved: 03-17-2015 05-28-2016 Chronic Essential hypertension (20 sources) Hypertensive disorder; Translations: [Essential (primary) hypertension] Onset: 01-11-2014 06-10-2016 Chronic Heart valve disorders (20 sources) Mitral valve regurgitation; Translations: [Nonrheumatic mitral (valve) insufficiency] Onset: 07-03-2011 Resolved: 12-02-2023 07-03-2011 Chronic Comment on above: Moderate per ECHO 23 mm Bautista magna bioprosthetic valve 02/28/23 Dr. 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, unspecified site] Onset: 02-06-2023 Resolved: 12-02-2023 02-06-2023 Chronic Noninfectious gastroenteritis (3 sources) Noninfective gastroenteritis and colitis, unspecified; Translations: [Other and unspecified noninfectious gastroenteritis and colitis] 06-06-2023 Episodic Nonspecific chest pain (14 sources) Chest pain; Translations: [Chest pain, unspecified] Onset: 02-02-2025 Episodic Occlusion or stenosis of precerebral arteries (1 source) Occlusion and stenosis of bilateral carotid arteries; Translations: [Occlusion and stenosis of bilateral carotid arteries] Onset: 07-29-2024 Chronic Osteoarthritis (20 sources) Osteoarthritis of right knee joint; Translations: [Unilateral primary osteoarthritis, right knee] Onset: 01-28-2018 01-28-2018 Chronic Other aftercare (2 sources) long term care administrator (current) use of anticoagulants; Translations: [long term care administrator (current) use of anticoagulants] Onset: 02-19-2023 Episodic Other aftercare (1 source) detention (current) use of insulin; Translations: [Type 2 diabetes mellitus without complication, with long-term current use of insulin (HCC)] Onset: 10-21-2024 Episodic Other and unspecified benign neoplasm (12 sources) Dysplasia of colon; Translations: [Polyp of colon] 08-08-2022 Episodic Other and unspecified benign neoplasm (7 sources) Polyp of colon; Translations: [Benign neoplasm of colon] 08-08-2022 Episodic Other and unspecified benign neoplasm (8 sources) Polyp of colon; Translations: [Polyp of colon] 02-27-2023 Episodic Other circulatory disease (4 sources) Disorder of carotid artery; Translations: [Disorder of arteries and arterioles, unspecified] 01-14-2024 Chronic Comment on above: moderate Other circulatory disease (3 sources) Carotid bruit; Translations: [Other specified symptoms and signs involving the circulatory and respiratory systems] 07-16-2023 Episodic Other eye disorders (11 sources) Discharge from eye; Translations: [Other specified disorders of eye and adnexa] 08-19-2022 Episodic Other gastrointestinal disorders (3 sources) Occult blood in stools; Translations: [Other fecal abnormalities] 09-11-2023 Episodic Other liver diseases (1 source) Abnormal levels of other serum enzymes; Translations: [Abnormal levels of other serum enzymes] Onset: 03-11-2025 Episodic Other lower respiratory disease (13 sources) Cough; Translations: [Acute cough] Episodic Other lower respiratory disease (12 sources) Dyspnea; Translations: [Shortness of breath] Episodic Other lower respiratory disease (11 sources) Respiratory tract congestion; Translations: [Other specified respiratory disorders] 08-19-2022 Episodic Other lower respiratory disease (1 source) Other specified respiratory disorders; Translations: [Other diseases of respiratory system, not elsewhere classified] 08-19-2022 Episodic Other lower respiratory disease (1 source) Cough; Translations: [Acute cough] 08-27-2022 Episodic Other nutritional; endocrine; and metabolic disorders (1 source) Body mass index 25-29 - overweight; Translations: [Body mass index (BMI) 27.0-27.9, adult] Onset: 05-31-2016 05-31-2016 Chronic Other nutritional; endocrine; and metabolic disorders (20 sources) Hypoalbuminemia; Translations: [Other disorders of plasma-protein metabolism, not elsewhere classified] Onset: 12-18-2022 12-18-2022 Chronic Other nutritional; endocrine; and metabolic disorders (20 sources) Waldenstrom macroglobulinemia; Translations: [Waldenstrom macroglobulinemia] Onset: 07-25-2023 12-02-2023 Chronic Comment on above: Waldenstrom macroglo bulinemia.PET/CT on 07/23/2023 showed no hypermetabolic activity.Started weekly Rituxan on 08/28/2023. Finished week 4 on 09/18/2023.Got another Rituxan weekly x 4 from 12/18/2023 to 01/07/2024.Comes for follow up.IgM has decreased to 815, Serum viscosity is now 1.6 on 08/05/2024Tiredness has improved. Has a complete Response. IgM has decrease Other screening for suspected conditions (not mental disorders or infectious disease) (3 sources) D-dimer above reference range; Translations: [Other specified abnormal findings of blood chemistry] Onset: 12-01-2024 Episodic Pneumonia (except that caused by tuberculosis or sexually transmitted disease) (1 source) Infective pneumonia; Translations: [Pneumonia, unspecified organism] Episodic Regional enteritis and ulcerative colitis (20 sources) Ulcerative colitis; Translations: [Ulcerative colitis, unspecified, without complications] Onset: 01-30-2005 06-20-2015 Chronic Screening and history of mental health and substance abuse codes (20 sources) Tobacco use and exposure - finding; Translations: [Personal history of nicotine dependence] Onset: 08-06-2005 01-30-2006 Episodic Unclassified (1 source) DM 08-19-2022 Unclassified (2 sources) New Patient; Translations: [New Patient] Onset: 02-19-2023 Unclassified (1 source) Waldenstrom macroglobulinemia, in remission; Translations: [Waldenstrom macroglobulinemia, in remission] Onset: 03-11-2025 Viral infection (2 sources) Herpes zoster; Translations: [Zoster without complications] 08-12-2024 Episodic Past or Other Problems Problem Classification Problem Date Documented Da te Episodic/Chronic Gastrointestinal hemorrhage (20 sources) Gastrointestinal hemorrhage; Translations: [Gastrointestinal hemorrhage, unspecified] Onset: 6 Resolved: 6 03-19-2016 Episodic Genitourinary symptoms and ill-defined conditions (20 sources) Proteinuria; Translations: [Other proteinuria] Onset: 3 12-18-2022 Episodic Hyperplasia of prostate (20 sources) Benign prostatic hypertrophy without outflow obstruction; Translations: [Benign prostatic hyperplasia without lower urinary tract symptoms] Onset: 6 Resolved: 6 03-19-2016 Chronic Miscellaneous mental health disorders (20 sources) Psychosexual dysfunction; Translations: [Unspecified sexual dysfunction not due to a substance or known physiological condition] Onset: 7 Resolved: 8 01-28-2018 Chronic Neoplasms of unspecified nature or uncertain behavior (20 sources) Monoclonal gammopathy of uncertain significance; Translations: [Monoclonal gammopathy] Onset: 3 Resolved: 4 12-22-2022 Chronic Other and unspecified benign neoplasm (20 sources) History of polyp of colon; Translations: [Personal history of colonic polyps] Onset: 7 01-28-2018 Episodic Other circulatory disease (2 sources) Other specified symptoms and signs involving the circulatory and respiratory systems; Translations: [Other symptoms involving cardiovascular system] Onset: 5 07-16-2023 Episodic Other nutritional; endocrine; and metabolic disorders (20 sources) Abnormal weight loss; Translations: [Abnormal weight loss] Onset: 3 Resolved: 4 12-18-2022 Episodic Unclassified (20 sources) Type 2 diabetes mellitus without complication; Translations: [Uncontrolled type 2 diabetes mellitus without complication, with long-term current use of insulin] Onset: 6 Resolved: 6 03-19-2016 Results Test Name Value Interpretation Reference Range Facility CBC W/Diff, Automatedon 02-27 Absolute Lymph 1.19 X10 3/uL Normal 0.83-4.51 [facility] Comment on above: Performed By: #### L 504.2610, L100.0100, L501.1400, L500.4050 #### [facility] [address] [place], [address] Absolute Neut 4.0 X10 3/uL Normal 2.0-7.7 [facility] Comment on above: Performed By: #### L 504.2610, L100.0100, L501.1400, L500.4050 #### [facility] [address] [place], [address] Basophils/100 WBC (Bld) 1.2 % High 0-1 [facility] Comment on above: Performed By: #### L 504.2610, L100.0100, L501.1400, L500.4050 #### [facility] [address] [place], [address] Eosinophils/100 WBC (Bld) 2.4 % Normal 0-5 [facility] Comment on above: Performed By: #### L 504.2610, L100.0100, L501.1400, L500.4050 #### [facility] [address] [place], [address] Erythrocyte distribution width (RBC) [Ratio] 12.8 % Normal 11.6-14.6 [facility] Comment on above: Performed By: #### L 504.2610, L100.0100, L501.1400, L500.4050 #### [facility] [address] [place], [address] Hematocrit (Bld) [Volume fraction] 36.6 % Low 40-54 [facility] Comment on above: Performed By: #### L 504.2610, L100.0100, L501.1400, L500.4050 #### [facility] [address] [place], [address] Hemoglobin (Bld) [Mass/Vol] 11.5 g/dL Low 13.0-16.5 [facility] Comment on above: Performed By: #### L 504.2610, L100.0100, L501.1400, L500.4050 #### [facility] [address] [place], [address] IG% 0.300 Normal 0.0-0.9 [facility] Comment on above: Result Comment: IG% - Immature Granulocytes (promyelocytes, myelocytes and metamyelocytes) > 1% indicates that a LEFT SHIFT is Present. Performed By: #### L 504.2610, L100.0100, L501.1400, L500.4050 #### [facility] [address] [place], [address] Lymphocytes/100 WBC (Bld) 20.2 % Normal 19-41 [facility] Comment on above: Performed By: #### L 504.2610, L100.0100, L501.1400, L500.4050 #### [facility] [address] [place], [address] MCH (RBC) [Entitic mass] 27.3 pg Normal 27.0-32.0 [facility] Comment on above: Performed By: #### L 504.2610, L100.0100, L501.1400, L500.4050 #### [facility] [address] [place], [address] MCHC (RBC) [Mass/Vol] 31.4 g/dL Low 32-36 [facility] Comment on above: Performed By: #### L 504.2610, L100.0100, L501.1400, L500.4050 #### [facility] [address] [place], [address] MCV (RBC) [Entitic vol] 86.7 fL Normal 80-94 [facility] Comment on above: Performed By: #### L 504.2610, L100.0100, L501.1400, L500.4050 #### [facility] [address] [place], [address] Monocytes/100 WBC (Bld) 9.0 % Normal 0-10 [facility] Comment on above: Performed By: #### L 504.2610, L100.0100, L501.1400, L500.4050 #### [facility] [address] [place], [address] Neutrophils/100 WBC (Bld) 66.9 % Normal 47-70 [facility] Comment on above: Performed By: #### L 504.2610, L100.0100, L501.1400, L500.4050 #### [facility] [address] [place], [address] Nucleated RBC (Bld) [#/Vol] 0 10*3/uL Normal 0-5 [facility] Comment on above: Performed By: #### L 504.2610, L100.0100, L501.1400, L500.4050 #### [facility] [address] [place], [address] Platelet mean volume (Bld) [Entitic vol] 9.6 fL Normal 6.2-12.0 [facility] Comment on above: Performed By: #### L 504.2610, L100.0100, L501.1400, L500.4050 #### [facility] [address] [place], [address] Platelets (Bld) [#/Vol] 226 10*3/uL Normal 150-450 [facility] Comment on above: Performed By: #### L 504.2610, L100.0100, L501.1400, L500.4050 #### [facility] [address] [place], [address] RBC (Bld) [#/Vol] 4.22 10*6/uL Low 4.6-6.2 [facility] Comment on above: Performed By: #### L 504.2610, L100.0100, L501.1400, L500.4050 #### [facility] [address] [place], [address] RDW SD 40.6 fl Normal 35.1-43.9 [facility] Comment on above: Performed By: #### L 504.2610, L100.0100, L501.1400, L500.4050 #### [facility] [address] [place], [address] WBC (Bld) [#/Vol] 5.9 10*3/uL Normal 4.4-11.0 [facility] Comment on above: Performed By: #### L 504.2610, L100.0100, L501.1400, L500.4050 #### [facility] [address] [place], [address] Comprehensive Metabolic Prof dcon 03-11-2025 Albumin [Mass/Vol] 4.4 g/dL Normal 3.4-4.8 [facility] Comment on above: Performed By: #### L 504.2610, L100.0100, L501.1400, L500.4050 #### [facility] [address] [place], [address] Albumin/Globulin [Mass ratio] 1.5 {ratio} Normal 0.9-2.4 [facility] Comment on above: Performed By: #### L 504.2610, L100.0100, L501.1400, L500.4050 #### [facility] [address] [place], [address] ALK PHOS 74 U/L Normal 40-129 [facility] Comment on above: Performed By: #### L 504.2610, L100.0100, L501.1400, L500.4050 #### [facility] [address] [place], [address] ALT [Catalytic activity/Vol] 29 U/L Normal <=46 [facility] Comment on above: Performed By: #### L 504.2610, L100.0100, L501.1400, L500.4050 #### [facility] [address] [place], [address] AST [Catalytic activity/Vol] 30 U/L Normal <=37 [facility] Comment on above: Performed By: #### L 504.2610, L100.0100, L501.1400, L500.4050 #### [facility] [address] [place], [address] Bilirubin [Mass/Vol] 0.34 mg/dL Normal 0.00-1.30 [facility] Comment on above: Performed By: #### L 504.2610, L100.0100, L501.1400, L500.4050 #### [facility] [address] [place], [address] BUN/CRE 34.0 RATIO High 10-20 [facility] Comment on above: Performed By: #### L 504.2610, L100.0100, L501.1400, L500.4050 #### [facility] [address] [place], [address] Calcium [Mass/Vol] 9.7 mg/dL Normal 7.6-11.0 [facility] Comment on above: Performed By: #### L 504.2610, L100.0100, L501.1400, L500.4050 #### [facility] [address] [place], [address] Chloride [Moles/Vol] 106 mmol/L Normal 98-108 [facility] Comment on above: Performed By: #### L 504.2610, L100.0100, L501.1400, L500.4050 #### [facility] [address] [place], [address] CO2 [Moles/Vol] 23.2 mmol/L Normal 21.0-32.0 [facility] Comment on above: Performed By: #### L 504.2610, L100.0100, L501.1400, L500.4050 #### [facility] [address] [place], [address] Creatinine [Mass/Vol] 1.17 mg/dL Normal 0.70-1.20 [facility] Comment on above: Performed By: #### L 504.2610, L100.0100, L501.1400, L500.4050 #### [facility] [address] [place], [address] ECRCL 45.44 ml/min Low 50-250 [facility] Comment on above: Performed By: #### L 504.2610, L100.0100, L501.1400, L500.4050 #### [facility] [address] [place], [address] GAP 10 Normal 5-15 [facility] Comment on above: Performed By: #### L 504.2610, L100.0100, L501.1400, L500.4050 #### [facility] [address] [place], [address] GFR/1.73 sq M.predicted among non-blacks MDRD (S/P/Bld) [Vol rate/Area] 63 mL/min/{1.73_m2} Normal >60 [facility] Comment on above: Result Comment: mL/m in/1.73m2 CKD-EPI Creatinine Equation (2020) Performed By: #### L 504.2610, L100.0100, L501.1400, L500.4050 #### [facility] [address] [place], [address] Globulin (S) [Mass/Vol] 2.9 g/dL Normal 2.2-4.2 [facility] Comment on above: Performed By: #### L 504.2610, L100.0100, L501.1400, L500.4050 #### [facility] [address] [place], [address] Glucose [Mass/Vol] 153 mg/dL High 70-99 [facility] Comment on above: Performed By: #### L 504.2610, L100.0100, L501.1400, L500.4050 #### [facility] [address] [place], [address] Potassium [Moles/Vol] 4.7 mmol/L Normal 3.3-5.1 [facility] Comment on above: Performed By: #### L 504.2610, L100.0100, L501.1400, L500.4050 #### [facility] [address] [place], [address] Sodium [Moles/Vol] 139 mmol/L Normal 133-145 [facility] Comment on above: Performed By: #### L 504.2610, L100.0100, L501.1400, L500.4050 #### [facility] [address] [place], [address] T PROT 7.3 g/dL Normal 5.9-8.4 [facility] Comment on above: Performed By: #### L 504.2610, L100.0100, L501.1400, L500.4050 #### [facility] [address] [place], [address] Urea nitrogen [Mass/Vol] 40 mg/dL High 4-19 [facility] Comment on above: Performed By: #### L 504.2610, L100.0100, L501.1400, L500.4050 #### [facility] [address] [place], [address] LDHon 03-11-2025 LDH 192 U/L Normal 87-241 [facility] Comment on above: Order Comment: 1 Performed By: #### L 504.2610, L100.0100, L501.1400, L500.4050 #### [facility] [address] [place], [address] Uric Acidon 03-11-2025 URIC 5.1 mg/dL Normal 3.5-7.2 [facility] Comment on above: Result Comment: The drugs N-Acetylcysteine and Metamizole may falsely depress this assay. Performed By: #### L 504.2610, L100.0100, L501.1400, L500.4050 #### [facility] [address] [place], [address] Echo Completeon 03-10-2025 Echo Complete [facility] [address] 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 Myocardial strain analysis was performed in this exam to aid in the assessment of cardiac function. Exam performed in department. Left Ventricle Normal LV size. Mild concentric left ventricular hypertrophy. The global longitudinal strain = -18.4 % (normal). The left ventricular ejection fraction is 60 %. Stage 1 diastolic dysfunction. Right Ventricle Normal right ventricle. Atria There is moderate biatrial dilatation. Mitral Valve Mild-Moderate (1-2+) mitral valve insufficiency. Tricuspid Valve Trivial tricuspid valve insufficiency. Normal pulmonary artery pressure. Aortic Valve Stable appearing bioprosthetic aortic valve. Mean peak gradient 10.8 mmHg. Pulmonic Valve The pulmonic valve is not well visualized. Great Vessels Normal sized aortic root. Pericardium/Pleural No pericardial effusion. MMode/2D Measurements Calculations LVIDd: 4.4 cm IVSd: 1.2 cm LVOT diam: 1.9 cm LVIDs: 2.6 cm LVPWd: 0.95 cm LVOT area: 2.8 cm2 RVDd: 3.5 cm FS: 41.0 % Ao root diam: 3.2 cm LAV(MOD-bp): 65.5 ml LVAd ap4: 28.3 cm2 LAV(MOD-bp) Indexed: 37.0 ml/m2 LVLd ap4: 8.1 cm LAV(MOD-sp2): 68.4 ml EDV(MOD-sp4): 79.3 ml LAV(MOD-sp4): 57.2 ml EDV(sp4-el): 83.9 ml LVAs ap4: 15.1 cm2 LVLs ap4: 6.4 cm ESV(MOD-sp4): 29.5 ml ESV(sp4-el): 30.5 ml EF(MOD-sp4): 62.8 % EF(sp4-el): 63.7 % LVAd ap2: 26.6 cm2 SV(MOD-sp4): 49.8 ml SV(MOD-sp2): 49.5 ml LVLd ap2: 8.4 cm SI(MOD-sp4): 28.1 ml/m2 SI(MOD-sp2): 28.0 ml/m2 EDV(MOD-sp2): 70.0 ml EDV(sp2-el): 71.6 ml LVAs ap2: 12.3 cm2 LVLs ap2: 6.7 cm ESV(MOD-sp2): 20.4 ml ESV(sp2-el): 19.1 ml EF(MOD-sp2): 70.8 % SV(sp4-el): 53.4 ml LA dimension(2D): 4.5 cm LA A4 area: 21.0 cm2 RA A4 area: 17.9 cm2 TAPSE: 1.6 cm Time Measurements MV dec time: 0.31 sec Doppler Measurements Calculations MV E max lakisha: 93.5 cm/sec Lat Peak E' Lakisha: 10.6 cm/sec Med Peak E' Lakisha: 6.5 cm/sec MV A max lakisha: 102.8 cm/sec E/E' lat: 8.8 E/E' med: 14.3 MV E/A: 0.91 Ao V2 max: 223.8 cm/sec LV V1 max: 122.2 cm/sec MV dec slope: 297.5 cm/sec2 Ao max P.1 mmHg LV V1 max P.0 mmHg Ao V2 mean: 154.2 cm/sec LV V1 mean P.2 mmHg Ao mean P.8 mmHg LV V1 mean: 82.7 cm/sec Ao V2 VTI: 47.6 cm LV V1 VTI: 26.9 cm AV (velocity ratio): 0.57 KAPIL(I,D): 1.6 cm2 KAPIL(V,D): 1.5 cm2 SV(LVOT): 76.2 ml PA V2 max: 124.7 cm/sec TR max lakisha: 234.5 cm/sec TR max P.0 mmHg ECHO/Echo Complete Interpretation Summary Mild concentric left ventricular hypertrophy. The left ventricular ejection fraction is 60 %. The global longitudinal strain = -18.4 % (normal). Stage 1 diastolic dysfunction. There is moderate biatrial dilatation. Mild-Moderate (1-2+) mitral valve insufficiency. Stable appearing bioprosthetic aortic valve. Mean peak gradient 10.8 mmHg. Ordering Physician: Lia Mcknight Referring Physician: Felix Bill Performed By: Benjamin Bautista RDCS 03/10/25 1238 Date Martin Neri MD CC: MICHELLE-Mark Mcknight; Dr. Felix Bill MD Date Dictated: 03/10/25 0832 Date Transcribed: 03/10/25 1238 Rod Pointer: Signed Normal [facility] Lipid Profileon 03-10-2025 CHOL:HDL 1.80 Normal [facility] Comment on above: Performed By: #### L 100.0100, L503.6030, L101.9900, L3410.1700, L100.9950, L3100.3425, L501.6710, L500.4050 #### [facility] [address] [place], [address] Cholesterol [Mass/Vol] 151 mg/dL Normal <=200 [facility] Comment on above: Result Comment: Chol esterol level, Desirable <200 mg/dL Borderline high cholesterol 200-239 mg/dL High cholesterol >=240 mg/dL Recommendations of the NCEP Adult Treatment Panel for the following risk-cutoff thresholds for the [place] population. Performed By: #### L 100.0100, L503.6030, L101.9900, L3410.1700, L100.9950, L3100.3425, L501.6710, L500.4050 #### [facility] [address] [place], [address] Cholesterol in HDL [Mass/Vol] 84 mg/dL Normal [facility] Comment on above: Result Comment: Lluvia onal Cholesterol Education Program (NCEP) guidelines: <40 mg/dL: Low HDL-cholesterol (major risk factor for CHD) >= 60 mg/dL: High HDL-cholesterol (negative risk factor for CHD) HDL-cholesterol is affected by a number of factors, e.g. smoking, exercise, hormones, sex and age. Performed By: #### L 100.0100, L503.6030, L101.9900, L3410.1700, L100.9950, L3100.3425, L501.6710, L500.4050 #### [facility] [address] [place], [address] Cholesterol in LDL [Mass/Vol] 48 mg/dL Normal [facility] Comment on above: Result Comment: Bord huzsuo=484-714 mg/dL Higher Mtof=493 mg/dL or greater Ramirez Equation 2020 for LDL-C Performed By: #### L 100.0100, L503.6030, L101.9900, L3410.1700, L100.9950, L3100.3425, L501.6710, L500.4050 #### [facility] [address] [place], [address] Cholesterol in VLDL [Mass/Vol] 21 mg/dL Normal 5-40 [facility] Comment on above: Performed By: #### L 100.0100, L503.6030, L101.9900, L3410.1700, L100.9950, L3100.3425, L501.6710, L500.4050 #### [facility] [address] [place], [address] Triglyceride [Mass/Vol] 105 mg/dL Normal [facility] Comment on above: Result Comment: The drugs N-Acetylcysteine and Metamizole may falsely depress this assay. Normal range: <150 mg/dL Borderline High: 150-199 mg/dL High: 200-499 mg/dL Very High: >500 mg/dL Performed By: #### L 100.0100, L503.6030, L101.9900, L3410.1700, L100.9950, L3100.3425, L501.6710, L500.4050 #### [facility] [address] [place], [address] Liver Profileon 03-10-2025 Albumin [Mass/Vol] 4.5 g/dL Normal 3.4-4.8 [facility] Comment on above: Performed By: #### L 100.0100, L503.6030, L101.9900, L3410.1700, L100.9950, L3100.3425, L501.6710, L500.4050 #### [facility] [address] [place], [address] ALK PHOS 93 U/L Normal 40-129 [facility] Comment on above: Performed By: #### L 100.0100, L503.6030, L101.9900, L3410.1700, L100.9950, L3100.3425, L501.6710, L500.4050 #### [facility] [address] [place], [address] ALT [Catalytic activity/Vol] 29 U/L Normal <=46 [facility] Comment on above: Performed By: #### L 100.0100, L503.6030, L101.9900, L3410.1700, L100.9950, L3100.3425, L501.6710, L500.4050 #### [facility] [address] [place], [address] AST [Catalytic activity/Vol] 30 U/L Normal <=37 [facility] Comment on above: Performed By: #### L 100.0100, L503.6030, L101.9900, L3410.1700, L100.9950, L3100.3425, L501.6710, L500.4050 #### [facility] [address] [place], [address] Bilirubin [Mass/Vol] 0.29 mg/dL Normal 0.00-1.30 [facility] Comment on above: Performed By: #### L 100.0100, L503.6030, L101.9900, L3410.1700, L100.9950, L3100.3425, L501.6710, L500.4050 #### [facility] [address] [place], [address] Bilirubin.direct [Mass/Vol] 0.12 mg/dL Normal 0.00-0.30 [facility] Comment on above: Performed By: #### L 100.0100, L503.6030, L101.9900, L3410.1700, L100.9950, L3100.3425, L501.6710, L500.4050 #### [facility] [address] [place], [address] Globulin (S) [Mass/Vol] 2.8 g/dL Normal 2.2-4.2 [facility] Comment on above: Performed By: #### L 100.0100, L503.6030, L101.9900, L3410.1700, L100.9950, L3100.3425, L501.6710, L500.4050 #### [facility] [address] [place], [address] T PROT 7.3 g/dL Normal 5.9-8.4 [facility] Comment on above: Performed By: #### L 100.0100, L503.6030, L101.9900, L3410.1700, L100.9950, L3100.3425, L501.6710, L500.4050 #### [facility] [address] [facility] [place], [place], [address] (221) Stress Reporton 03-10-2025 Stress Report [facility] [address] [place] [address] MR#: [id number] Acct: [id number] Name: VIDAL KAY Rep #: [id number] : 1945 80 From: Martin Neri MD Primary Care: Dr. Felix Bill MD Status: REG CLI Referring Dr: Lia Mcknight NP [employer]C Sex: M C Stress Test Report Date: 03/10/2025 Procedure: Exercise tolerance test/imaging study Indications: Coronary artery disease Consent: Per the patient Procedure: The patient exercised on a Miguel protocol for 6 minutes and 15 seconds achieving a peak heart rate of 144 bpm (102% predicted maximal heart rate) with a peak blood pressure 180/70 mmHg and a peak MET capacity of 7.7 METs. The baseline ECG demonstrated sinus rhythm. The peak exercise ECG showed downsloping and horizontal ST depressions in inferior and lateral leads suggestive of ischemia. Rare PVC noted. The functional capacity was considered very good for age. There was no angina reported. Dyspnea reported. The examination was discontinued secondary to target heart rate being achieved. The patient was injected with 11.8 mCi of technetium 99m Cardiolite and subsequently rest SPECT Cardiolite nuclear imaging was obtained in the horizontal long, vertical long, and short axis views. Post-exercise, the patient was injected with 33.1 mCi of technetium 99m Cardiolite and subsequently stress SPECT Cardiolite nuclear imaging was obtained in the horizontal long, vertical long, and short axis views. A gated Cardiolite study at peak stress was obtained. Rest and stress SPECT Cardiolite nuclear imaging status post realignment, normalization, and attenuation correction, demonstrates reversible inferior wall hypoperfusion post exercise suggestive of ischemia. There is end systolic thickening and brightening. The gated Cardiolite study demonstrates myocardial thickening and inward wall motion. The reported LVEF is 63%. Impression: 1. Technically adequate (percent predicted maximal heart rate greater than 85%) exercise tolerance test 2. Peak exercise ECG with ischemic changes in inferior and lateral leads 3. No significant cardiac dysrhythmias noted 4. Rest and stress SPECT Cardiolite nuclear imaging demonstrate moderate-sized reversible inferior defect suggestive of ischemia. 5. The gated Cardiolite study reports an LVEF of 63%. This note was generated with Twiigg dictation software. It may contain incorrect words, spelling, and punctuation that were not noted in checking the note before signing. 03/10/25 1201 Date Martin Neri MD CC: NACHO Mcknight; Dr. eFlix Bill MD; MARCELLE Phillips Date Dictated: 03/10/251157 Date Transcribed: 03/10/251157 Rod Pointer: JUAN C Signed Normal [facility] Oncology Visit Reporton 10-2 Oncology Visit Report [facility] [place] [address] [address] OFFICE VISIT Date of Service: 02/23/25 1047 MR#: [id number] Acct: [id number] Name: VIDAL KAY Rep #: [id number] : 1945 From: Marco Hurtado MD Age/Sex: 80/M Location: [facility] Status: Signed HPI Subjective Date of Service 02/23/25 Chief Complaint F/u for WM/OSMAN History of Present Illness 80-year-old man was seen at [facility], found to have proteinuria, workup showed increased IgM. IgM level was 3819 on 12/28/2022. He underwent a bone marrow aspiration and biopsy on 01/23/2023. 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 His IgM was 3642 on 05/23/2023. Rituxan was suggested by Dr. Landry but patient was not ready to start any treatment. Requested a second opinion at [facility]. He was found to have Iron deficiency Anemia so IV Iron-Ferrlecit IV with no improvement. He was still tired so IV Venofer with Rituxan was suggested and Pt agreed to Proceed. Started Venofer and Rituxan on 08/28/2023. Finished week 4 Rituxan on 09/18/2023. Got another weekly x 4 Rituxan therapy from 12/18/2023 to 01/07/2024. He is on observation. Comes for follow up. Feels better. Tiredness has improved. [facility] Medical History Shingles Bilateral carotid artery disease BPH (benign prostatic hyperplasia) Anemia Wears glasses Cancer Low iron History of ulceration Former smoker History of echocardiogram Cardiology follow-up encounter Non-rheumatic mitral regurgitation Nonrheumatic aortic (valve) stenosis Mixed hyperlipidemia Essential hypertension Stomach ulcer Crohn disease Ulcerative colitis Heart murmur High cholesterol Diabetes type 2, controlled Bone fracture Back problem Surgical History History of cataract surgery History of colonoscopy ( 04/2023) History of cardiac catheterization History of tonsillectomy S/P aortic valve replacement S/P CABG x 2 History of carpal tunnel surgery Family History Mother Diabetes Liver disease CAD (coronary artery disease) Father Diabetes CAD (coronary artery disease) History of coronary artery bypass surgery Sister Breast cancer Daughter Breast cancer Social History Smoking Status: Former smoker Tobacco: How many years used: 20 Smokeless tobacco user: snuff how long ago did patient quit smokin+ years second hand exposure: No alcohol intake: never substance use type: does not use caffeine: Yes Type: coffee Number of servings: 5 Intake Vital Signs 08/26/24 10:10 02/02/25 07:45 02/23/25 10:47 Height 5 ft 6 in 5 ft 6 in 5 ft 6 in Weight: 70.76 kg BMI 25.2 BP 115/59 L Blood Pressure Location Lt brachial Position Sitting Respiration 18 Pulse 56 L Pulse Source Monitor Temp 98.7 F Temperature Source Temporal Artery Pulse Oximetry (%) 97 Oxygen Delivery Method room air Intake Accompanied by: Self Is patient in pain?: No Allergies No Known Allergies Allergy (Verified 02/23/25 10:55) Medications ???Medication ???Instructions ???Recorded ???Confirmed ???Type pen needle, diabetic 32 gauge x #30 ea 06/02/18 02/23/25 Rx 5/32 (Comfort EZ Pen [place]) ascorbic acid (vitamin C) 1,000 mg 1 g PO DAILY 05/31/21 02/23/25 H istory tablet glucosamine-chondroitin 500 mg-400 1 cap PO DAILY 05/31/21 02/23/25 History mg capsule multivitamin 1 tab PO DAILY 05/31/21 02/23/25 H istory ramipril 5 mg capsule 5 mg PO DAILY 05/31/21 02/23/25 Hi story dapagliflozin propanediol 10 mg 10 mg PO DAILY 06/15/21 02/23/25 H istory tablet (Farxiga) aspirin 81 mg tablet,delayed 81 mg PO DAILY 01/24/23 02/23/25 H istory release (Adult Aspirin Regimen) acetaminophen 500 mg capsule 500 mg PO Q6H PRN pain 07/02/23 History ferrous sulfate 325 mg (65 mg 325 mg PO DAILY 07/02/23 02/23/25 History iron) tablet insulin glargine 100 unit/mL (3 12 unit subcut QHS 07/15/23 History mL) subcutaneous pen (Lantus Solostar U-100 Insulin) insulin lispro 100 unit/mL 4 unit subcut TID 07/15/23 5 History subcutaneous pen (Humalog KwikPen (U-100) Insulin) metoprolol tartrate 25 mg tablet 25 mg PO BID #180 tabs 05/18/24 Rx triamcinolone acetonide 0.1 % 1 applic topical TID PRN 08/26/24 02/23/25 History topical cream mesalamine 1.2 gram tablet,delayed 1.2 g PO BID #180 TABLETS 0 (more content not included)... Normal [facility] RAMESH + Protein Elect, Serumon 02-19-2025 Albumin [Mass/Vol] 3.7 g/dL Normal 2.9-4.4 [facility] Comment on above: Order Comment: Test( s) 008258-[id number], Serumwas developed and its performance characteristicsdetermined by [employer]. It has not been cleared or approvedby the Food and Drug Administration.N Performed By: #### L 504.2610, L100.0100, L501.1400, L500.4050 #### [facility] [address] [place], [place], [address] Albumin/Globulin [Mass ratio] 1.2 {ratio} Normal 0.7-1.7 [facility] Comment on above: Order Comment: Test( s) 643295-Kwvhnsdzb, Serumwas developed and its performance characteristicsdetermined by [employer]. It has not been cleared or approvedby the Food and Drug Administration.N Performed By: #### L 504.2610, L100.0100, L501.1400, L500.4050 #### [facility] [address] [place], [place], [address] SQGDR-2-BJEH 0.4 g/dL Normal 0.0-0.4 [facility] Comment on above: Order Comment: Test( s) 003724-Finvhnzac, Serumwas developed and its performance characteristicsdetermined by [employer]. It has not been cleared or approvedby the Food and Drug Administration.N Performed By: #### L 504.2610, L100.0100, L501.1400, L500.4050 #### [facility] [address] [place], [address] HKSTE-6-TRBF 1.2 g/dL High 0.4-1.0 [facility] Comment on above: Order Comment: Test( s) 383154-Gamztddcb, Serumwas developed and its performance characteristicsdetermined by [employer]. It has not been cleared or approvedby the Food and Drug Administration.N Performed By: #### L 504.2610, L100.0100, L501.1400, L500.4050 #### [facility] [address] [place], [address] BETA GLOBULIN 1.1 g/dL Normal 0.7-1.3 [facility] Comment on above: Order Comment: Test( s) 675533-Qbroyxwkx, Serumwas developed and its performance characteristicsdetermined by [employer]. It has not been cleared or approvedby the Food and Drug Administration.N Performed By: #### L 504.2610, L100.0100, L501.1400, L500.4050 #### [facility] [address] [place], [address] GAMMA GLOBULIN 0.4 g/dL Normal 0.4-1.8 [facility] Comment on above: Order Comment: Test( s) [id number]-Socoueeod, Serumwas developed and its performance characteristicsdetermined by [employer] Give. It has not been cleared or approvedby the Food and Drug Administration.N Performed By: #### L 504.2610, L100.0100, L501.1400, L500.4050 #### [facility] [address] [place], [address] Globulin (S) [Mass/Vol] 3.1 g/dL Normal 2.2-3.9 [facility] Comment on above: Order Comment: Test( s) 971493-Xtxlwxaqy, Serumwas developed and its performance characteristicsdetermined by 51 Give. It has not been cleared or approvedby the Food and Drug Administration.N Performed By: #### L 504.2610, L100.0100, L501.1400, L500.4050 #### [facility] [address] [place], [address] RAMESH RESULT,S Comment: Normal . [facility] Comment on above: Order Comment: Test( s) [id number]-Wqnkicler, Serumwas developed and its performance characteristicsdetermined by 51 Give. It has not been cleared or approvedby the Food and Drug Administration.N Result Comment: Pres ence of monoclonal protein is unclear at this time. Suggest repeat in 3 to 6 months if clinically indicated. Performed By: #### L 504.2610, L100.0100, L501.1400, L500.4050 #### [facility] [address] [place], [address] IMMUNOGLOB A QN 41 mg/dL Low 61-437 [facility] Comment on above: Order Comment: Test( s) 676810-Ifsckzueg, Serumwas developed and its performance characteristicsdetermined by [employer]. It has not been cleared or approvedby the Food and Drug Administration.N Result Comment: Resu lt confirmed on concentration. Performed By: #### L 504.2610, L100.0100, L501.1400, L500.4050 #### [facility] [address] [place], [address] IMMUNOGLOB G QN 410 mg/dL Low 603-1613 [facility] Comment on above: Order Comment: Test( s) 857324-Yomezcvwc, Serumwas developed and its performance characteristicsdetermined by 51 [employer]. It has not been cleared or approvedby the Food and Drug Administration.N Performed By: #### L 504.2610, L100.0100, L501.1400, L500.4050 #### [facility] [address] [place], [address] IMMUNOGLOB M QN 800 mg/dL High 15-143 [facility] Comment on above: Order Comment: Test( s) 142226-Onnslvxlt, Serumwas developed and its performance characteristicsdetermined by [facility]. It has not been cleared or approvedby the Food and Drug Administration.N Result Comment: Resu lts confirmed on dilution. Performed By: #### L 504.2610, L100.0100, L501.1400, L500.4050 #### [facility] [address] [place], [address] M-Donnell Comment: Normal Not Observed [facility] Comment on above: Order Comment: Test( s) [id number]-Uetbrfwfg, Serumwas developed and its performance characteristicsdetermined by [employer]. It has not been cleared or approvedby the Food and Drug Administration.N Result Comment: SPE shows atypical staining at the point of application. Sample was pretreated with 2-Mercaptoethanol. Performed By: #### L 504.2610, L100.0100, L501.1400, L500.4050 #### [facility] [address] [place], [address] NOTE: Comment Normal . [facility] Comment on above: Order Comment: Test( s) 703766-Cgwlgfjnt, Serumwas developed and its performance characteristicsdetermined by [employer]. It has not been cleared or approvedby the Food and Drug Administration.N Result Comment: Prot ein electrophoresis scan will follow via computer, mail, or furnace tapper delivery. Performed By: #### L 504.2610, L100.0100, L501.1400, L500.4050 #### [facility] [address] [place], [address] Protein [Mass/Vol] 6.8 g/dL Normal 6.0-8.5 [facility] Comment on above: Order Comment: Test( s) [id number]-Ipojwmzxy, Serumwas developed and its performance characteristicsdetermined by [employer]. It has not been cleared or approvedby the Food and Drug Administration.N Performed By: #### L 504.2610, L100.0100, L501.1400, L500.4050 #### [facility] [address] [place], [address] Viscosity, Serumon 02-19- 5 VISCOSITY,SERUM 1.6 rel.saline Normal 1.4-2.1 [facility] Comment on above: Order Comment: Test( s) [id number]-Bzzhsctdw, Serumwas developed and its performance characteristicsdetermined by [facility]. It has not been cleared or approvedby the Food and Drug Administration. Result Comment: Valu es above 2.7 may indicate paraproteinemia is present. Performed at: [address] [id number] [employer]: Elías Bush PhD, Phone: [phone] Performed at: [address] [id number] [employer]: Bailee Barahona MD, Phone: [phone] Performed By: #### L 504.2610, L100.0100, L501.1400, L500.4050 #### [facility] [address] [place], [address] Immunoglobulins G/A/Mon 10-2 IMMUNOGLOB A QN 39 mg/dL Low 61-437 [facility] Comment on above: Order Comment: N Result Comment: Resu lt confirmed on concentration. Performed By: #### L 504.2610, L100.0100, L501.1400, L500.4050 #### [facility] [address] [place], [address] IMMUNOGLOB G QN 405 mg/dL Low 603-1613 [facility] Comment on above: Order Comment: N Performed By: #### L 504.2610, L100.0100, L501.1400, L500.4050 #### [facility] [address] [place], [address] IMMUNOGLOB M QN 899 mg/dL High 15-143 [facility] Comment on above: Order Comment: N Result Comment: Resu lts confirmed on dilution. Performed By: #### L 504.2610, L100.0100, L501.1400, L500.4050 #### [facility] [address] [place], [address] Sedley Lambda Light Chainson 02-16-2025 FR KAPPA LT CHN 14.8 mg/L Normal 3.3-19.4 [facility] Comment on above: Performed By: #### L 504.2610, L100.0100, L501.1400, L500.4050 #### [facility] [address] [place], [address] FR LAMBDA LT CH 11.9 mg/L Normal 5.7-26.3 [facility] Comment on above: Performed By: #### L 504.2610, L100.0100, L501.1400, L500.4050 #### [facility] [address] [place], [address] KAPPA/LAMBDA % 1.24 Normal 0.26-1.65 [facility] Comment on above: Result Comment: Perf ormed at: [facility] [id number] [employer]: Elías Bush PhD, Phone: [phone] Performed By: #### L 504.2610, L100.0100, L501.1400, L500.4050 #### [facility] [address] [place], [address] CBC W/Diff, Automatedon 01-28 Absolute Lymph 1.10 X10 3/uL Normal 0.83-4.51 [facility] Comment on above: Performed By: #### L 504.2610, L100.0100, L501.1400, L500.4050 #### [facility] [address] [place], [address] Absolute Neut 3.6 X10 3/uL Normal 2.0-7.7 [facility] Comment on above: Performed By: #### L 504.2610, L100.0100, L501.1400, L500.4050 #### [facility] [address] [place], [address] Basophils/100 WBC (Bld) 1.5 % High 0-1 [facility] Comment on above: Performed By: #### L 504.2610, L100.0100, L501.1400, L500.4050 #### [facility] [address] [place], [address] Eosinophils/100 WBC (Bld) 3.1 % Normal 0-5 [facility] Comment on above: Performed By: #### L 504.2610, L100.0100, L501.1400, L500.4050 #### [facility] [address] [place], [address] Erythrocyte distribution width (RBC) [Ratio] 12.9 % Normal 11.6-14.6 [facility] Comment on above: Performed By: #### L 504.2610, L100.0100, L501.1400, L500.4050 #### [facility] [address] [place], [address] Hematocrit (Bld) [Volume fraction] 36.8 % Low 40-54 [facility] Comment on above: Performed By: #### L 504.2610, L100.0100, L501.1400, L500.4050 #### [facility] [address] [place], [address] Hemoglobin (Bld) [Mass/Vol] 11.7 g/dL Low 13.0-16.5 [facility] Comment on above: Performed By: #### L 504.2610, L100.0100, L501.1400, L500.4050 #### [facility] [address] [place], [address] IG% 0.400 Normal 0.0-0.9 [facility] Comment on above: Result Comment: IG% - Immature Granulocytes (promyelocytes, myelocytes and metamyelocytes) > 1% indicates that a LEFT SHIFT is Present. Performed By: #### L 504.2610, L100.0100, L501.1400, L500.4050 #### [facility] [address] [place], [address] Lymphocytes/100 WBC (Bld) 20.1 % Normal 19-41 [facility] Comment on above: Performed By: #### L 504.2610, L100.0100, L501.1400, L500.4050 #### [facility] [address] [place], [address] MCH (RBC) [Entitic mass] 27.4 pg Normal 27.0-32.0 [facility] Comment on above: Performed By: #### L 504.2610, L100.0100, L501.1400, L500.4050 #### [facility] [address] [place], [address] MCHC (RBC) [Mass/Vol] 31.8 g/dL Low 32-36 [facility] Comment on above: Performed By: #### L 504.2610, L100.0100, L501.1400, L500.4050 #### [facility] [address] [place], [address] MCV (RBC) [Entitic vol] 86.2 fL Normal 80-94 [facility] Comment on above: Performed By: #### L 504.2610, L100.0100, L501.1400, L500.4050 #### [facility] [address] [place], [address] Monocytes/100 WBC (Bld) 9.3 % Normal 0-10 [facility] Comment on above: Performed By: #### L 504.2610, L100.0100, L501.1400, L500.4050 #### [facility] [address] [place], [address] Neutrophils/100 WBC (Bld) 65.6 % Normal 47-70 [facility] Comment on above: Performed By: #### L 504.2610, L100.0100, L501.1400, L500.4050 #### [facility] [address] [place], [address] Nucleated RBC (Bld) [#/Vol] 0 10*3/uL Normal 0-5 [facility] Comment on above: Performed By: #### L 504.2610, L100.0100, L501.1400, L500.4050 #### [facility] [address] [place], [address] Platelet mean volume (Bld) [Entitic vol] 9.6 fL Normal 6.2-12.0 [facility] Comment on above: Performed By: #### L 504.2610, L100.0100, L501.1400, L500.4050 #### [facility] [address] [place], [address] Platelets (Bld) [#/Vol] 253 10*3/uL Normal 150-450 [facility] Comment on above: Performed By: #### L 504.2610, L100.0100, L501.1400, L500.4050 #### [facility] [address] [place], [address] RBC (Bld) [#/Vol] 4.27 10*6/uL Low 4.6-6.2 [facility] Comment on above: Performed By: #### L 504.2610, L100.0100, L501.1400, L500.4050 #### [facility] [address] [place], [address] RDW SD 40.1 fl Normal 35.1-43.9 [facility] Comment on above: Performed By: #### L 504.2610, L100.0100, L501.1400, L500.4050 #### [facility] [address] [place], [address] WBC (Bld) [#/Vol] 5.5 10*3/uL Normal 4.4-11.0 [facility] Comment on above: Performed By: #### L 504.2610, L100.0100, L501.1400, L500.4050 #### [facility] [address] [place], [address] CRPon 02-15-2025 C-REACTIVE PROT < 3.00 Normal 0.0-3.0 [facility] Comment on above: Performed By: #### L 504.2610, L100.0100, L501.1400, L500.4050 #### [facility] [address] [place], [address] Comprehensive Metabolic Prof ilon 02-15-2025 Albumin [Mass/Vol] 4.5 g/dL Normal 3.4-4.8 [facility] Comment on above: Performed By: #### L 504.2610, L100.0100, L501.1400, L500.4050 #### [facility] [address] [place], [address] Albumin/Globulin [Mass ratio] 1.6 {ratio} Normal 0.9-2.4 [facility] Comment on above: Performed By: #### L 504.2610, L100.0100, L501.1400, L500.4050 #### [facility] [address] [place], [address] ALK PHOS 101 U/L Normal 40-129 [facility] Comment on above: Performed By: #### L 504.2610, L100.0100, L501.1400, L500.4050 #### [facility] [address] [place], [address] ALT [Catalytic activity/Vol] 32 U/L Normal <=46 [facility] Comment on above: Performed By: #### L 504.2610, L100.0100, L501.1400, L500.4050 #### [facility] [address] [place], [address] AST [Catalytic activity/Vol] 35 U/L Normal <=37 [facility] Comment on above: Performed By: #### L 504.2610, L100.0100, L501.1400, L500.4050 #### [facility] [address] [place], [address] Bilirubin [Mass/Vol] 0.33 mg/dL Normal 0.00-1.30 [facility] Comment on above: Performed By: #### L 504.2610, L100.0100, L501.1400, L500.4050 #### [facility] [address] [place], [address] BUN/CRE 36.1 RATIO High 10-20 [facility] Comment on above: Performed By: #### L 504.2610, L100.0100, L501.1400, L500.4050 #### [facility] [address] [place], [address] Calcium [Mass/Vol] 9.7 mg/dL Normal 7.6-11.0 [facility] Comment on above: Performed By: #### L 504.2610, L100.0100, L501.1400, L500.4050 #### [facility] [address] [place], [address] Chloride [Moles/Vol] 105 mmol/L Normal 98-108 [facility] Comment on above: Performed By: #### L 504.2610, L100.0100, L501.1400, L500.4050 #### [facility] [address] [place], [address] CO2 [Moles/Vol] 22.9 mmol/L Normal 21.0-32.0 [facility] Comment on above: Performed By: #### L 504.2610, L100.0100, L501.1400, L500.4050 #### [facility] [address] [place], [address] Creatinine [Mass/Vol] 0.97 mg/dL Normal 0.70-1.20 [facility] Comment on above: Performed By: #### L 504.2610, L100.0100, L501.1400, L500.4050 #### [facility] [address] [place], [address] ECRCL 54.81 ml/min Normal 50-250 [facility] Comment on above: Performed By: #### L 504.2610, L100.0100, L501.1400, L500.4050 #### [facility] [address] [place], [address] GAP 10 Normal 5-15 [facility] Comment on above: Performed By: #### L 504.2610, L100.0100, L501.1400, L500.4050 #### [facility] [address] [place], [address] GFR/1.73 sq M.predicted among non-blacks MDRD (S/P/Bld) [Vol rate/Area] 79 mL/min/{1.73_m2} Normal >60 [facility] Comment on above: Result Comment: mL/m in/1.73m2 CKD-EPI Creatinine Equation (2020) Performed By: #### L 504.2610, L100.0100, L501.1400, L500.4050 #### [facility] [address] [place], [address] Globulin (S) [Mass/Vol] 2.7 g/dL Normal 2.2-4.2 [facility] Comment on above: Performed By: #### L 504.2610, L100.0100, L501.1400, L500.4050 #### [facility] [address] [place], [address] Glucose [Mass/Vol] 157 mg/dL High 70-99 [facility] Comment on above: Performed By: #### L 504.2610, L100.0100, L501.1400, L500.4050 #### [facility] [address] [place], [address] Potassium [Moles/Vol] 5.2 mmol/L High 3.3-5.1 [facility] Comment on above: Performed By: #### L 504.2610, L100.0100, L501.1400, L500.4050 #### [facility] [address] [place], [address] Sodium [Moles/Vol] 138 mmol/L Normal 133-145 [facility] Comment on above: Performed By: #### L 504.2610, L100.0100, L501.1400, L500.4050 #### [facility] [address] [place], [address] T PROT 7.2 g/dL Normal 5.9-8.4 [facility] Comment on above: Performed By: #### L 504.2610, L100.0100, L501.1400, L500.4050 #### [facility] [address] [place], [address] Urea nitrogen [Mass/Vol] 35 mg/dL High 4-19 [facility] Comment on above: Performed By: #### L 504.2610, L100.0100, L501.1400, L500.4050 #### [facility] [address] [place], [address] Erythrocyte Sed Rateon 02-15 SED RATE 42 mm/hr High 0-20 [facility] Comment on above: Performed By: #### L 504.2610, L100.0100, L501.1400, L500.4050 #### [facility] [address] [place], [address] Ferritinon 02-15-2025 Ferritin [Mass/Vol] 658 ng/mL High 37-417 [facility] Comment on above: Performed By: #### L 504.2610, L100.0100, L501.1400, L500.4050 #### [facility] [address] [place], [address] Iron+Iron Binding Capacityon 02-15-2025 Iron [Mass/Vol] 77 ug/dL Normal 65-175 [facility] Comment on above: Performed By: #### L 504.2610, L100.0100, L501.1400, L500.4050 #### [facility] [address] [place], [address] UIBC 190 ug/dL Low 228-428 [facility] Comment on above: Performed By: #### L 504.2610, L100.0100, L501.1400, L500.4050 #### [facility] [address] [place], [address] LDHon 02-15-2025 LDH 211 U/L Normal 87-241 [facility] Comment on above: Order Comment: 1 Performed By: #### L 504.2610, L100.0100, L501.1400, L500.4050 #### [facility] [address] [place], [address] Vitamin B12on 02-15-2025 Cobalamin (Vitamin B12) [Mass/Vol] 676 pg/mL Normal 180-914 [facility] Comment on above: Performed By: #### L 504.2610, L100.0100, L501.1400, L500.4050 #### [facility] [address] [place], [address] Cardiology Visit Reporton Cardiology Visit Report [facility] [address] [place], [place] [address] OFFICE VISIT Date of Service: 02/02/25 MR#: [id number] Acct: [id number] Name: VIDAL KAY Rep #: [id number] : 1945 Provider: NACHO palomino Age/Sex: 80/M Location: [facility] Status: Signed HPI HPI History of Present Illness Details: Vidal Kay is a 80-year-old white male who presents today for outpatient cardiovascular follow up. He has a history of valvular heart disease with aortic valve stenosis and mitral valve regurgitation. Echocardiogram in 2021 demonstrated moderate . When he was seen in November of 2022, he noted he had more SOB and vague chest pain. Echocardiogram demonstrated worsening . Diagnostic heart cath demonstrated severe disease involving a long LAD lesion as well as a right coronary artery lesion and moderately severe aortic stenosis. He underwent a CABG x 2 with an SINGER to the LAD, SVG to the PL along with an AVR with a 23 mm Bautista magna bioprosthetic valve on 02/28/2023 at [facility] by Dr. Rodríguez. Postoperatively he did require an us guided thoracentesis. He does see Dr. Hurtado, and he was diagnosed with lymphoma. He does follow with him routinely. From a cardiac standpoint, the patient is doing well. He does acknowledge intermittent chest pain. This is located left chest, and is brief. He describes this as a gas sensation. He denies any palpitations, pressure or heaviness. He denies SOB, Orthopnea, and PND. He does not have bleeding issues; no blood in urine, stool, or nosebleeds. He does acknowledge tiring easier. He denies myalgias, or claudication. He does not have edema, or sudden weight gain. He denies lightheadedness, dizziness, syncopal or near syncopal episodes, and headaches. Intake Vital Signs 08/26/24 10:10 02/02/25 07:45 Height 5 ft 6 in 5 ft 6 in Weight: 155 lb BMI 25.0 BP 128/64 H Blood Pressure Location Lt brachial Position Sitting Respiration 18 Pulse 60 Pulse Source Monitor Pulse Oximetry (%) 99 Intake Visit Reasons: Intermittent chest pain, see clinicals. 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 Is patient in pain?: No Allergies No Known Allergies Allergy (Verified 02/02/25 09:36) Medications ???Medication ???Instructions ???Recorded ???Confirmed ???Type pen needle, diabetic 32 gauge x #30 ea 06/02/18 02/02/25 Rx /32 (Comfort EZ Pen [place]) ascorbic acid (vitamin C) 1,000 mg 1 g PO DAILY 05/31/21 02/02/25 H istory tablet glucosamine-chondroitin 500 mg-400 1 cap PO DAILY 05/31/21 02/02/25 History mg capsule multivitamin 1 tab PO DAILY 05/31/21 02/02/25 H istory ramipril 5 mg capsule 5 mg PO DAILY 05/31/21 02/02/25 Hi story dapagliflozin propanediol 10 mg 10 mg PO DAILY 06/15/21 02/02/25 H istory tablet (Farxiga) aspirin 81 mg tablet,delayed 81 mg PO DAILY 01/24/23 02/02/25 H istory release (Adult Aspirin Regimen) acetaminophen 500 mg capsule 500 mg PO Q6H PRN pain 07/02/23 History ferrous sulfate 325 mg (65 mg 325 mg PO DAILY 07/02/23 02/02/25 History iron) tablet insulin glargine 100 unit/mL (3 12 unit subcut QHS 07/15/23 History mL) subcutaneous pen (Lantus Solostar U-100 Insulin) insulin lispro 100 unit/mL 4 unit subcut TID 07/15/23 5 History subcutaneous pen (Humalog KwikPen (U-100) Insulin) metoprolol tartrate 25 mg tablet 25 mg PO BID #180 tabs 05/18/24 Rx triamcinolone acetonide 0.1 % 1 applic topical TID PRN 08/26/24 02/02/25 History topical cream mesalamine 1.2 gram tablet,delayed 1.2 g PO BID #180 TABLETS 02/02/25 Rx release rosuvastatin 40 mg tablet 40 mg PO DAILY #90 tabs 12/16/24 1 Rx Ejection fraction %: 60 Have you fallen in the past year?: No PFSH Medical History (Reviewed 02/02/25 @ 15:22 by Lia Mcknight IN STORE MARKETING ASSOCIATE, IN STORE MARKETING ASSOCIATE-C) Shingles Bilateral carotid artery disease BPH (benign prostatic hyperplasia) Anemia Wears glasses Cancer Low iron History of ulceration Former smoker History of echocardiogram Cardiology follow-up encounter Non-rheumatic mitral regurgitation Nonrheumatic aortic (valve) stenosis Mixed hyperlipidemia Essential hypertension Stomach ulcer Crohn disease Ulcerative colitis Heart murmur High cholesterol Diabetes type 2, controlled Bone fracture Back problem Surgical History History of cataract surgery History of colonoscopy ( 04/2023) History of cardiac catheterization History of tonsillectomy S/P aortic valve replacement S/P CABG x 2 History of carpal tunnel surgery Family History Mother Diabetes Liver disease CAD (coronary artery disease) Father Diabetes C (more content not included)... [facility] ) VIDAL KAY ([id number]) 1945 M Date Time Provider Department 12/01/24 9:40 AM FELIX BILL INTMWS During your visit today, we recorded the following information about you: Temperature Pulse Respiration Blood pressure 98.9 degrees 54/minute 16/minute 136/66 Weight Height 69.4 kg 1.66 m Felix Bill MD 12/01/2024 11:15 AM Signed Vidal Kay is a 79 year old male here for a Medicare wellness visit. Medicare Health Risk Assessment General Health Good Exercise: Minutes/Day 150+ min Exercise: Days/Week 7 days Alcohol: Daily Use Never Alcohol: Drinks/Day Patient does not drink Alcohol: 6 or more drinks Never Feel off balance No Concerns: Teeth/Dentures No Concerns: Sexual function No Troubled by feelings None of the above Frequency: Eating healthy diet Nearly every day ADLs requiring help None of the above Safety precautions in home/vehicle No Smoke, vape, chews tobacco Yes, and I might quit Difficulty hearing No Difficulty seeing No Current Providers Specialists: I have reviewed specialist-related care of the patient in the medical record. Current care team: Patient Care Team: Felix Bill MD as PCP - General (Internal Medicine) Lynn Vieyra, BOTTLER HELPER.CAMPUS REP as Radiation Oncology Nurse (Internal Medicine) Sonya Chase MD/Lise Richter APRN, CAMPUS REP, [facility] (Endocrinology). Outside specialists seen: Marco Hurtado MD, Hematology/Oncology. Chase Baig MD, Cardiology. Mei Jimenez MD, Gastroenterology. Katerine Montanez OD, Optometry Ulisses Stover MD, Ophthalmology, Retinal specialist. Medical/Family history review Reviewed and updated problem list, medical/surgical/family /social history, medications, and allergies. Opioid use review Opioid Medications (last 90 days) No data to display Anxiety/Depression screening PHQ-2 Score: 0 (Lower risk for depression) Recommendation: no further intervention at this time Cognitive screening Mini Cog Score: 5 Cognitive screening reviewed and No further action needed (score 3-5). Functional Observation Was the patient's Timed Up AND Go test unsteady or >= 12 seconds? No Advance Care Planning Patient did not wish or was not able to name a surrogate decision maker or provide an advance care plan Measurements BP 136/66 Pulse (!) 54 Temp 37.2 ?C (98.9 ?F) Resp 16 Ht 166 cm (5' 5.35) Wt 69.4 kg (153 lb) SpO2 97% BMI 25.19 kg/m? Vision Screening: Follows with optometry/ophthalmology Assessment/Plan Medicare annual wellness visit, subsequent (Z00.00) - Counseled on healthy diet and regular exercise - Fall avoidance information provided - Personalized prevention plan provided - Smoking cessation encouraged; discussed risks to health and quitting strategies. Patient is preparing to quit Felix Bill MD 12/01/2024 10:56 AM Signed Screening schedule The following prevention plan is recommended: Advance Directive Discussion due on 04/29/2024 Medicare Advantage Annual Wellness Visit due on 04/29/2024 Diabetic Foot Exam due on 12/01/2024 Depression Screening due on 12/01/2024 Anxiety Screening due on 12/01/2024 WHAT YOU CAN DO TO PREVENT FALLS Many falls can be prevented. By making some changes, you can lower your chances of falling. Four things YOU can do to prevent falls for you* and your caregiver 1. Begin a regular exercise program Exercise is one of the most important ways to lower your chances of falling. It makes you stronger and helps you feel better. Exercises that improve balance and coordination (like Percy Chi) are the most helpful. Lack of exercise leads to weakness and increases your chances of falling. Ask your doctor or health care provider about the best type of exercise program for you. 2. Have your health care provider review your medicines Have your doctor or pharmacist review all the medicines you take, even wlac-[id number]-[id number] medicines. As you get older, the way medicines work in your body can change. Some medicines, or combinations of medicines, can make you sleepy or dizzy and can cause you to fall. 3. Have your vision checked Have your eyes checked by an eye doctor at least once a year. You may be wearing the wrong glasses or have a condition like glaucoma or cataracts that limits your vision. Poor vision can increase your chances of falling. 4. Make your home safer About half of all falls happen at home. To make your home safer: Remove things you can trip over (like papers, books, clothes, and shoes) from stairs and places where you walk. Remove small throw rugs or use double-sided tape to keep the rugs from slipping. Keep items you use often in cabinets you can reach easily without using a step stool. Have grab bars put in next to your toilet and in the tub or shower. Use non-slip mats in the bathtub and on shower floo (more content not included)... Normal [facility] Gastroenterology Visit Repor ton 11-10-2024 Gastroenterology Visit Report [facility] [address] [place] [address] OFFICE VISIT Date of Service: 11/10/24 MR#: [id number] Acct: [id number] Name: VIDAL KAY Rep #: [id number] : 1945 Provider: Douglas Jimenez DO Age/Sex: 79/M Location: [facility] Status: Signed Intake Vital Signs 02/20/24 11:20 08/26/24 10:10 Height 5 ft 6 in 5 ft 6 in Weight: 153 lb BMI 24.7 BP 101/62 Blood Pressure Location Lt brachial Position Sitting Respiration 18 Pulse 71 Pulse Source Monitor Temp 98.5 F Pulse Oximetry (%) 98 Oxygen Delivery Method room air Intake Visit Reasons: 6 M FU Allergies No Known Allergies Allergy (Verified 08/26/24 10:08) Medications ???Medication ???Instructions ???Recorded ???Confirmed ???Type pen needle, diabetic 32 gauge x #30 ea 06/02/18 11/10/24 Rx 5/32 (Comfort EZ Pen [place]) ascorbic acid (vitamin C) 1,000 mg 1 g PO DAILY 05/31/21 11/10/24 H istory tablet glucosamine-chondroitin 500 mg-400 1 cap PO DAILY 05/31/21 11/10/24 History mg capsule multivitamin 1 tab PO DAILY 05/31/21 11/10/24 H istory ramipril 5 mg capsule 5 mg PO DAILY 05/31/21 11/10/24 Hi story dapagliflozin propanediol 10 mg 10 mg PO DAILY 06/15/21 11/10/24 H istory tablet (Farxiga) aspirin 81 mg tablet,delayed 81 mg PO DAILY 01/24/23 11/10/24 H istory release (Adult Aspirin Regimen) rosuvastatin 40 mg tablet 40 mg PO DAILY 04/16/23 11/10/24 H istory acetaminophen 500 mg capsule 500 mg PO Q6H PRN pain 07/02/23 History ferrous sulfate 325 mg (65 mg 325 mg PO DAILY 07/02/23 11/10/24 History iron) tablet insulin glargine 100 unit/mL (3 12 unit subcut QHS 07/15/23 History mL) subcutaneous pen (Lantus Solostar U-100 Insulin) insulin lispro 100 unit/mL 4 unit subcut TID 07/15/23 5 History subcutaneous pen (Humalog KwikPen (U-100) Insulin) mesalamine 1.2 gram tablet,delayed 1.2 g PO BID #180 tabs 12/02/23 11/10/24 Rx release metoprolol tartrate 25 mg tablet 25 mg PO BID #180 tabs 05/18/24 Rx amoxicillin 500 mg tablet 2,000 mg (4 x 500 mg) PO ONCE #4 0 07/29/24 11/10/24 Rx tabs triamcinolone acetonide 0.1 % 1 applic topical TID PRN 08/26/24 11/10/24 History topical cream Have you fallen in the past year?: No PFSH Medical History Shingles Bilateral carotid artery disease BPH (benign prostatic hyperplasia) Anemia Wears glasses Cancer Low iron History of ulceration Former smoker History of echocardiogram Cardiology follow-up encounter Non-rheumatic mitral regurgitation Nonrheumatic aortic (valve) stenosis Mixed hyperlipidemia Essential hypertension Stomach ulcer Crohn disease Ulcerative colitis Heart murmur High cholesterol Diabetes type 2, controlled Bone fracture Back problem Surgical History History of cataract surgery History of colonoscopy ( 04/2023) History of cardiac catheterization History of tonsillectomy S/P aortic valve replacement S/P CABG x 2 History of carpal tunnel surgery Family History Mother Diabetes Liver disease CAD (coronary artery disease) Father Diabetes CAD (coronary artery disease) History of coronary artery bypass surgery Sister Breast cancer Daughter Breast cancer Social History Smoking Status: Former smoker Tobacco: How many years used: 20 Smokeless tobacco user: snuff how long ago did patient quit smokin+ years second hand exposure: No alcohol intake: never substance use type: does not use caffeine: Yes Type: coffee Number of servings: 5 HPI HPI Details: VIDAL KAY, is a 79 M who presents to the office today for follow up. 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 ? Colonoscopy 06.08.19 6mm cecal polyp, low-grade dysplasia; inflammation with altered vasculature, erosion, ulceration in sigmoid through rectum *[facility] established 05.02.21 recommending transition to oral mesalamine. OV 08.08.22 continue mesalamine PO ? Biochemical 08.08.22 CBC, ESR, CMP, CRP not performed ? Stool calprotectin, lactoferrin not performed Colonoscopy 05.06.23 9mm cecal TA polyp; Marquez Score 1. Ascending colon focal acute colitis with minimal cryptitis; transverse colon through rectum melano (more content not included)... [facility] ELIZAVIDAL [facility]OT[facility] ([id number]) 1945 M Date Time Provider Department 11/02/24 LISE RICHTER During your visit today, we recorded the following information about you: Katerine Kilgore 11/02/2024 11:38 AM Signed Pts Lilian calling regarding pts BD needles. She is having a hard time finding a pharmacy that has these and is asking what she should do. Please call to discuss. Thank you! Yary Jackson MA 11/02/2024 3:45 PM Signed Phoned [facility] in [place] regarding needles Rx. Pharmacy reports they only carry [facility] branded needles. Pharmacy unaware the exact reasoning of patient complaint but transferred Rx to [facility] earlier today Phoned patients to discuss needles. states the patient reports being unhappy with the quality of the [facility] needles. She purchased 2 boxes from [employer] today but is aware they can change what they stock prior to next refill. Yary Jackson MA Allergies As of Date: 11/02/2024 (No Known Allergies) Date Reviewed: 10/21/2024 Reviewed by: Yary Jackson MA - Fully Assessed Reason for Visit: Patient Question [0417] Cmt: BD needles Prescriptions as of 11/02/2024 - insulin glargine (LANTUS SOLOSTAR U-100 INSULIN) 100 unit/mL (3 mL) Inject 12 Units subcutaneously daily at bedtime. - insulin lispro (HUMALOG KWIKPEN INSULIN) 100 unit/mL Inject 4 units with meals PLUS sliding scale #1 (1 unit for every 50 over 150 PRE MEAL blood sugar) ~20 units daily - Blood-Glucose Sensor (UmooveCOM G7 SENSOR) rick CHANGE sensor every 10 days. USE FOR CONTINUOUS GLUCOSE MONITORING. INSULIN USE E11.9 - gabapentin (NEURONTIN) 100 mg capsule Take 1 capsule by mouth daily at bedtime for 30 days. - Insulin [place], Disposable, (BD ULTRA-FINE VY PEN NEEDLE) 32 gauge x 5/32 USES 4 per day with insulin injections. - ibuprofen (MOTRIN) 800 mg tablet Take 1 tablet by mouth every 8 hours as needed for pain. - ramipril (ALTACE) 5 mg capsule Take 1 capsule by mouth once daily. - FARXIGA 10 mg tablet TAKE 1 TABLET DAILY - flaxseed oil (OMEGA 3 ORAL) Take 1 capsule by mouth once daily. - LECITHIN ORAL Take 1 tablet by mouth once daily. - acetaminophen (TYLENOL) 500 mg tablet Take 500 mg by mouth two times a day as needed for pain. - aspirin, enteric coated (ASPIRIN, ENTERIC COATED) 81 mg EC tablet Take 81 mg by mouth once daily. - metoprolol tartrate, short acting, (LOPRESSOR) 25 mg tablet Take 25 mg by mouth two times a day. - rosuvastatin (CRESTOR) 40 mg tablet Take 40 mg by mouth once daily. - OTC PRODUCT Shaklee Iron: Take two tablets by mouth once daily. - Blood-Glucose Meter,Continuous (DEXCOM G7 HOME HEALTH NURSE LICENSED PRACTICAL) [facility] Dispense one lifter/driver USE FOR CONTINUOUS GLUCOSE MONITORING. INSULIN USE E11.9 - lancets (ONE TOUCH DELICA) 33 gauge Test blood sugar(s) 4 times daily. Dx: Other DM Code E11.49 Insulin: Yes - Mesalamine (LIALDA) 1.2 gram EC tablet Take 2 tablets by mouth once daily. Per Dr. Jeff Jimenez. - VITAMIN C 1,000 MG TAB Take 1,000 mg by mouth once daily. - GLUCOSAMINE CHONDROITIN MAXSTR 500 MG-400 MG CAP Take 1 capsule by mouth once daily. - MULTIVITAMIN TAB Take 1 tablet by mouth once daily. Problem List As Of Date 11/02/2024 Noted Resolved Type II or unspecified type diabetes mellitus w* 01/11/2014 HYPERLIPIDEMIA NEC/NOS [E78.5] 03/17/2015 Ulcerative colitis (HCC) [K51.90] 01/30/2005 Hypertrophy of prostate without urinary obstruc*08/06/2005 03/19/2016 PERS HX TOBACCO USE [Z87.891] 08/06/2005 Hemorrhage of gastrointestinal tract, unspecifi*02/28/2006 03/19/2016 Iron deficiency anemia due to chronic blood los*07/25/2023 BPH without obstruction/lower urinary tract sym*07/31/2006 03/19/2016 Personal history of colonic polyps [Z86.0100] 07/31/2006 ERECTILE DYSFUNCTION [F52.9] 01/27/2007 01/28/2018 Mitral regurgitation [I34.0] 07/03/2011 DM (diabetes mellitus), type 2, uncontrolled (H*01/11/2014 10/21/2015 Hypertension [I10] 01/11/2014 Hyperlipidemia [E78.5] 03/17/2015 Uncontrolled type 2 diabetes mellitus without c*10/21/2015 03/19/2016 Primary osteoarthritis of right knee [M17.11] 01/28/2018 Aortic stenosis, moderate [I35.0] 10/07/2020 12/02/2023 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*09/12/2021 Other proteinuria [R80.8] 12/18/2022 Hypoalbuminemia [E88.09] 12/18/2022 Abnormal weight loss [R63.4] 12/18/2022 12/02/2023 Monoclonal gammopathy of undetermined significa*12/22/2022 12/02/2023 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 CNOVon 10-21-2024 CNOV Office Visit (ENWSTR ) VIDAL KAY ([id number]) 1945 M Date Time Provider Department 10/21/24 9:45 AM LISE RICHTER ENWSTR During your visit today, we recorded the following information about you: Temperature Pulse Respiration Blood pressure 98.5 degrees 59/minute 12/minute 128/60 Weight 68.3 kg Mario Alberto Echavarria, VICENTE 10/21/2024 10:02 AM Signed Lise Richter, [facility] [employer] REP 10/21/2024 10:02 AM Signed OFFICE VISIT PROGRESS NOTE CC Vidal Kay is a 79 year old who presents today for blood sugar review, insulin dose review, adjust. HPI Diagnosed with diabetes mellitus type II, ~ ~1991 Last endocrine OV 03/25/2024 Some elements copied from my note 03/25/2024 which have been updated where appropriate, and all reflect current medical decision making from date of this visit. 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 CURRENT DM MEDS FARXIGA 10 mg 1 tab daily LANTUS 12 units daily HUMALOG 4-4-4 plus S#1 SMBG Type of Monitor: Other DEXCOM G7 Patient is compliant with CGM use and is benefiting from sensor use. 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, gazelle 15 minutes, weights//curls/shoulder s DM REVIEW OF SYSTEMS Last Eye Exam : 05/2025 Last Podiatry Exam: 11/2023 Cardiorespiratory: negative, denies chest pain, pressure Claudication: no Dyslipidemia: No High Blood Pressure: No CURRENT LABS Recent Labs 02/27/22 0813 06/08/22 0809 10/12/22 1211 12/11/22 0847 12/18/22 1151 01/22/23 0801 05/23/23 1259 07/03/23 0959 03/25/24 1501 05/28/24 0812 05/28/24 1116 ALT -- < > -- 16 -- 12 27 -- -- -- -- AST -- < > -- 15 -- 13* 34 -- -- -- -- UCRR 96.7 -- -- 57.1 -- -- -- -- -- -- 48.3 UALBR 95.1 -- -- 129.7 -- -- -- -- -- -- 263.9 UALBCR 98* -- -- 227* -- -- -- -- -- -- 546* TPROT -- < > -- 8.6* 8.6* 7.7 8.5* 8.8* -- -- -- -- ALB -- < > -- 3.6* -- 3.3* 3.5* -- -- -- -- CA -- < > -- 9.7 -- 8.9 9.8 -- -- 9.9 -- TBILI -- < > -- 0.2 -- 0.2 0.3 -- -- -- -- ALKPHOS -- < > -- 109 -- 100 137* -- -- -- -- GLUC -- < > -- 109* -- 119* 212* -- -- 129* -- BUN -- < > -- 21 -- 29* 32* -- -- 34* -- CREAT -- < > -- 0.97 -- 0.77 0.79 -- -- 1.04 -- NA -- < > -- 135* -- 135* 134* -- -- 138 -- K -- < > -- 5.0 -- 4.6 4.1 -- -- 4.7 -- CHLOR -- < > -- 99 -- 101 95* -- -- 103 -- CO2 -- < > -- 24 -- 25 27 -- -- 25 -- ANION -- < > -- 12 -- 9 12 -- -- 10 -- EGFROTH -- < > -- 80 -- 92 91 -- -- 73 -- HBA1C -- < > -- 8.0* -- -- -- 7.3* 6.8* 6.8* -- B12 -- -- 734 -- -- -- 765 -- -- -- -- < > = values in this interval not displayed. Recent Labs 12/07/21 0813 02/27/22 0805 06/08/22 0809 10/12/22 1211 12/11/22 0847 05/23/23 1259 07/03/23 0959 03/25/24 1501 05/28/24 0812 TG 41 -- -- -- 47 -- -- -- 47 CHOL 161 -- -- -- 157 -- -- -- 141 HDL 74 -- -- -- 66 -- -- -- 90 VLDL 8 -- -- -- 9 -- -- -- 9 LDL 79 -- -- -- 82 -- -- -- 42 FASTTIME 13 -- -- -- 12 -- -- -- 11 TCHDL 2.18 -- -- -- 2.38 -- -- -- 1.57 LDLHDL 1.07 -- -- -- 1.24 -- -- -- 0.47 NONHDL 87 -- -- -- 91 -- -- -- 51 HBA1C 7.3* < > 7.3* -- 8.0* -- 7.3* 6.8* 6.8* HBA0 163 < > 163 -- 183 -- -- -- 148 B12 -- -- -- 734 -- 765 -- -- -- < > = values in this interval not displayed. 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 Hurtado, [facility] On[facility] PAST SURGICAL HISTORY Procedure Laterality Date CABG (2) VEIN GRAFTS AND ARTERIAL GRAFT(S 02/28/2023 COLONOSCOPY FLX DX W/COLLJ SPEC WHEN PFRMD 03/11/1995 Colonoscopy COLONOSCOPY FLX DX W/COLLJ SPEC WHEN PFRMD 07/12/2008 Colonoscopy COLONOSCOPY FLX DX W/COLLJ SPEC WHEN PFRMD 05/16/2015 Colonoscopy (more content not included)... [facility] Telephone (JUAN M) VIDAL KAY ([id number]) 1945 M Date Time Provider Department 10/21/24 LISE RICHTER During your visit today, we recorded the following information about you: Mario Alberto Echavarria RN 10/21/2024 10:21 AM Signed Today's endocrinology OV note faxed to [facility] for existing CGM order. Fax confirmation received. Mario Alberto Echavarria RN October 21, 2024 10:21 AM Allergies As of Date: 10/21/2024 (No Known Allergies) Date Reviewed: 10/21/2024 Reviewed by: Yary Jackson MA - Fully Assessed Reason for Visit: OV Notes to DME [Other] Prescriptions as of 10/21/2024 - insulin glargine (LANTUS SOLOSTAR U-100 INSULIN) 100 unit/mL (3 mL) Inject 12 Units subcutaneously daily at bedtime. - insulin lispro (HUMALOG KWIKPEN INSULIN) 100 unit/mL Inject 4 units with meals PLUS sliding scale #1 (1 unit for every 50 over 150 PRE MEAL blood sugar) ~20 units daily - Blood-Glucose Sensor (Solexel G7 SENSOR) rick CHANGE sensor every 10 days. USE FOR CONTINUOUS GLUCOSE MONITORING. INSULIN USE E11.9 - gabapentin (NEURONTIN) 100 mg capsule Take 1 capsule by mouth daily at bedtime for 30 days. - Insulin [place], Disposable, (BD ULTRA-FINE VY PEN NEEDLE) 32 gauge x 5/32 USES 4 per day with insulin injections. - ibuprofen (MOTRIN) 800 mg tablet Take 1 tablet by mouth every 8 hours as needed for pain. - ramipril (ALTACE) 5 mg capsule Take 1 capsule by mouth once daily. - FARXIGA 10 mg tablet TAKE 1 TABLET DAILY - flaxseed oil (OMEGA 3 ORAL) Take 1 capsule by mouth once daily. - LECITHIN ORAL Take 1 tablet by mouth once daily. - acetaminophen (TYLENOL) 500 mg tablet Take 500 mg by mouth two times a day as needed for pain. - aspirin, enteric coated (ASPIRIN, ENTERIC COATED) 81 mg EC tablet Take 81 mg by mouth once daily. - metoprolol tartrate, short acting, (LOPRESSOR) 25 mg tablet Take 25 mg by mouth two times a day. - rosuvastatin (CRESTOR) 40 mg tablet Take 40 mg by mouth once daily. - OTC PRODUCT Shaklee Iron: Take two tablets by mouth once daily. - Blood-Glucose Meter,Continuous (DEXCOM G7 HOME HEALTH NURSE LICENSED PRACTICAL) [facility] Dispense one lifter/driver USE FOR CONTINUOUS GLUCOSE MONITORING. INSULIN USE E11.9 - lancets (ONE TOUCH DELICA) 33 gauge Test blood sugar(s) 4 times daily. Dx: Other DM Code E11.49 Insulin: Yes - Mesalamine (LIALDA) 1.2 gram EC tablet Take 2 tablets by mouth once daily. Per Dr. Aguilar Friend. - VITAMIN C 1,000 MG TAB Take 1,000 mg by mouth once daily. - GLUCOSAMINE CHONDROITIN MAXSTR 500 MG-400 MG CAP Take 1 capsule by mouth once daily. - MULTIVITAMIN TAB Take 1 tablet by mouth once daily. Problem List As Of Date 10/21/2024 Noted Resolved Type II or unspecified type diabetes mellitus w* 01/11/2014 HYPERLIPIDEMIA NEC/NOS [E78.5] 03/17/2015 Ulcerative colitis (HCC) [K51.90] 01/30/2005 Hypertrophy of prostate without urinary obstruc*08/06/2005 03/19/2016 PERS HX TOBACCO USE [Z87.891] 08/06/2005 Hemorrhage of gastrointestinal tract, unspecifi*02/28/2006 03/19/2016 Iron deficiency anemia due to chronic blood los*07/25/2023 BPH without obstruction/lower urinary tract sym*07/31/2006 03/19/2016 Personal history of colonic polyps [Z86.0100] 07/31/2006 ERECTILE DYSFUNCTION [F52.9] 01/27/2007 01/28/2018 Mitral regurgitation [I34.0] 07/03/2011 DM (diabetes mellitus), type 2, uncontrolled (H*01/11/2014 10/21/2015 Hypertension [I10] 01/11/2014 Hyperlipidemia [E78.5] 03/17/2015 Uncontrolled type 2 diabetes mellitus without c*10/21/2015 03/19/2016 Primary osteoarthritis of right knee [M17.11] 01/28/2018 Aortic stenosis, moderate [I35.0] 10/07/2020 12/02/2023 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*09/12/2021 Other proteinuria [R80.8] 12/18/2022 Hypoalbuminemia [E88.09] 12/18/2022 Abnormal weight loss [R63.4] 12/18/2022 12/02/2023 Monoclonal gammopathy of undetermined significa*12/22/2022 12/02/2023 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 12/02/2023 Coronary artery disease involving northwestern shoshone pena*02/17/2023 Waldenstrom macroglobulinemia (HCC) [C88.00] 07/25/2023 Aortic valve replaced [Z95.2] 02/28/2023 S/P CABG x 2 [Z95.1] 02/28/2023 Encounter Status:Closed by MARIO ALBERTO ECHAVARRIA on 10/21/24 Normal [facility] HEMOGLOBIN A1C (POC)on 10-21 HbA1c (Bld) [Mass fraction] 7.1 % Abnormal 4.3 - 5.6 % [facility] Comment on above: Location:[facility], [address] [place], [address] Point of care (POC) Hemoglobin A1c (HGBA1C) testing is intended to assess glucose control and provide a management tool for patients known to have diabetes and their healthcare providers. Target HGBA1C levels may depend on specific clinical circumstances. POC HGBA1C is not intended for use as a diagnostic or screening test; laboratory-based testing should be used for diagnostic purposes. The following information is supplemental and may not be applicable to specific diabetes management situations: The POC device correspondence review clerk provides a normal range of 4.2% to 6.5% for the HGBA1C POC test. However, the [place] [employer] guidelines indicate that patients with HGBA1C in the range of 5.7% to 6.4% are at increased risk for development of diabetes and that intervention by lifestyle modification may be beneficial. A HGBA1C level greater than or equal to 6.5% is considered diagnostic of diabetes, pending confirmatory testing. Use of HGBA1C testing to evaluate glucose control may not be appropriate for patients with hemoglobin variants or other conditions (e.g. anemia) that alter red blood cell lifespan. Interpretation and review of laboratory results Abnormal [facility] CNPNon 10-08-2024 CNPN Telephone (STED) VIDAL KAY ([id number]) 1945 M Date Time Provider Department 10/08/24 LISE RICHTER During your visit today, we recorded the following information about you: Alyssa Colin 10/08/2024 1:16 PM Signed Patients called and stated that her will be using his last Dexcom sensor today and they will need a short term refill until he seen on 10/21. Please advice Yary Jackson MA 10/08/2024 2:00 PM Signed Phoned patients to discuss CGM prescription. Insurance rukes are office visit every 3-6 months, patient has not been seen since 02/2024. There is nothing that can be done to change this. Lilian reports understanding and asks to be placed on waitlist for Lise Richter CNP. VÍCTOR Ziegler Jennifer M, RN 10/08/2024 3:06 PM Signed Received request from [facility] for copy of Last office visit notes/labs to be faxed to them at . Pt has a follow up on 10/21/2024 in [place]. Forwarding to [place] to fax once patient is seen there/same day. Allergies As of Date: 10/08/2024 (No Known Allergies) Date Reviewed: 08/19/2024 Reviewed by: Lynn Vieyra, [facility]CAMP[facility] REP - Fully Assessed Reason for Visit: Medication Problem [65] Prescriptions as of 10/08/2024 - gabapentin (NEURONTIN) 100 mg capsule Take 1 capsule by mouth daily at bedtime for 30 days. - Insulin [place], Disposable, (BD ULTRA-FINE VY PEN NEEDLE) 32 gauge x /32 USES 4 per day with insulin injections. - ibuprofen (MOTRIN) 800 mg tablet Take 1 tablet by mouth every 8 hours as needed for pain. - ramipril (ALTACE) 5 mg capsule Take 1 capsule by mouth once daily. - insulin glargine (LANTUS SOLOSTAR U-100 INSULIN) 100 unit/mL (3 mL) Inject 12 Units subcutaneously daily at bedtime. - insulin lispro (HUMALOG KWIKPEN INSULIN) 100 unit/mL Inject 4 units with meals PLUS sliding scale #1 (1 unit for every 50 over 150 PRE MEAL blood sugar) ~20 units daily - FARXIGA 10 mg tablet TAKE 1 TABLET DAILY - Blood-Glucose Sensor (DEXCOM G7 SENSOR) rick CHANGE sensor every 10 days. USE FOR CONTINUOUS GLUCOSE MONITORING. INSULIN USE E11.9 - flaxseed oil (OMEGA 3 ORAL) Take 1 capsule by mouth once daily. - LECITHIN ORAL Take 1 tablet by mouth once daily. - acetaminophen (TYLENOL) 500 mg tablet Take 500 mg by mouth two times a day as needed for pain. - aspirin, enteric coated (ASPIRIN, ENTERIC COATED) 81 mg EC tablet Take 81 mg by mouth once daily. - metoprolol tartrate, short acting, (LOPRESSOR) 25 mg tablet Take 25 mg by mouth two times a day. - rosuvastatin (CRESTOR) 40 mg tablet Take 40 mg by mouth once daily. - OTC PRODUCT Shaklee Iron: Take two tablets by mouth once daily. - Blood-Glucose Meter,Continuous (DEXCOM G7 HOME HEALTH NURSE LICENSED PRACTICAL) [facility] Dispense one lifter/driver USE FOR CONTINUOUS GLUCOSE MONITORING. INSULIN USE E11.9 - lancets (ONE TOUCH DELICA) 33 gauge Test blood sugar(s) 4 times daily. Dx: Other DM Code E11.49 Insulin: Yes - Mesalamine (LIALDA) 1.2 gram EC tablet Take 2 tablets by mouth once daily. Per Dr. Jeff Jimenez. - VITAMIN C 1,000 MG TAB Take 1,000 mg by mouth once daily. - GLUCOSAMINE CHONDROITIN MAXSTR 500 MG-400 MG CAP Take 1 capsule by mouth once daily. - MULTIVITAMIN TAB Take 1 tablet by mouth once daily. Problem List As Of Date 10/08/2024 Noted Resolved Type II or unspecified type diabetes mellitus w* 01/11/2014 HYPERLIPIDEMIA NEC/NOS [E78.5] 03/17/2015 Ulcerative colitis (HCC) [K51.90] 01/30/2005 Hypertrophy of prostate without urinary obstruc*08/06/2005 03/19/2016 PERS HX TOBACCO USE [Z87.891] 08/06/2005 Hemorrhage of gastrointestinal tract, unspecifi*02/28/2006 03/19/2016 Iron deficiency anemia due to chronic blood los*07/25/2023 BPH without obstruction/lower urinary tract sym*07/31/2006 03/19/2016 Personal history of colonic polyps [Z86.0100] 07/31/2006 ERECTILE DYSFUNCTION [F52.9] 01/27/2007 01/28/2018 Mitral regurgitation [I34.0] 07/03/2011 DM (diabetes mellitus), type 2, uncontrolled (H*01/11/2014 10/21/2015 Hypertension [I10] 01/11/2014 Hyperlipidemia [E78.5] 03/17/2015 Uncontrolled type 2 diabetes mellitus without c*10/21/2015 03/19/2016 Primary osteoarthritis of right knee [M17.11] 01/28/2018 Aortic stenosis, moderate [I35.0] 10/07/2020 12/02/2023 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 [facility] Telephone (4CQ) ELIZAVIDAL ([id number]) 1945 M Date Time Provider Department 08/31/24 BILLFELIX VELEZ 4CQ During your visit today, we recorded the following information about you: Betty Irene 08/31/2024 8:06 AM Signed Spouse is calling in regards to patients shingles and he is still having some itchiness, and pharmacy recommend Acyclovir, Please advise spouse if this is something patient could try, they use [facility] Lynn Vieyra APRN.[facility] 08/31/2024 10:20 AM Signed Acyclovir is for treatment of Shingles in the acute phase. Itching can be due to the nerves affected by the shingles virus. Recommend scheduling a follow-up to discuss further Lynn Vieyra APRN.Sneha Sterling MA 08/31/2024 10:30 AM Signed Left message for spouse to call back VÍCTOR Taylor Amanda, RN 08/31/2024 11:03 AM Signed Pts called and is notified of providers message and instructions. She states they know the itching can be due to the nerves affected by the shingles virus. She states Pt was just in last week for a recheck. Pt initial visit was on 08/12/24 and had f/u on 08/19/24. She said I don't know why he has to come in again. She states she has been putting the cream on it, but he needs something to give him some relief. She is asking if provider will call in the Acyclovir. VICENTE Sarmiento Naz M, APRN.[facility] 08/31/2024 11:49 AM Addendum The acyclovir is an anti viral medication, he no longer has an active viral infection which is the only thing the medication treats. It will not help with the itching and can potentially affect his liver. There is no proven treatment for the itching following shingles pain however sometimes the medications used to treat shingles pain may also help with the itching. These medications include Gabapentin, Lyrica and amitriptyline. We could start with a low dose of Gabapentin and go from there. In addition to this topical lidocaine may also be effective, insurance typically does not cover this but we could send the prescription and see Lynn Vieyra APRN.Sneha Sterling MA 08/31/2024 12:17 PM Signed Spoke to spouse who verbalized understanding to provider note. requested trying low dose gabapentin to linda jensen. Aware can pick OTC lidocaine cream up from pharmacy as well. Sneha Guillaume MA Allergies As of Date: 08/31/2024 (No Known Allergies) Date Reviewed: 08/19/2024 Reviewed by: Lynn Vieyra APRN.CAMPUS REP - Fully Assessed Reason for Visit: Patient Question [1477] Order(s):gabapentin (NEURONTIN) 100 mg capsuleTake 1 capsule by mouth daily at bedtime for 30 days.Disp: 30 capsuleRfl: 0 Prescriptions as of 08/31/2024 - gabapentin (NEURONTIN) 100 mg capsule Take 1 capsule by mouth daily at bedtime for 30 days. - Insulin [place], Disposable, (BD ULTRA-FINE VY PEN NEEDLE) 32 gauge x 5/32 USES 4 per day with insulin injections. - ibuprofen (MOTRIN) 800 mg tablet Take 1 tablet by mouth every 8 hours as needed for pain. - ramipril (ALTACE) 5 mg capsule Take 1 capsule by mouth once daily. - insulin glargine (LANTUS SOLOSTAR U-100 INSULIN) 100 unit/mL (3 mL) Inject 12 Units subcutaneously daily at bedtime. - insulin lispro (HUMALOG KWIKPEN INSULIN) 100 unit/mL Inject 4 units with meals PLUS sliding scale #1 (1 unit for every 50 over 150 PRE MEAL blood sugar) ~20 units daily - FARXIGA 10 mg tablet TAKE 1 TABLET DAILY - Blood-Glucose Sensor (Solexel G7 SENSOR) rick CHANGE sensor every 10 days. USE FOR CONTINUOUS GLUCOSE MONITORING. INSULIN USE E11.9 - flaxseed oil (OMEGA 3 ORAL) Take 1 capsule by mouth once daily. - LECITHIN ORAL Take 1 tablet by mouth once daily. - acetaminophen (TYLENOL) 500 mg tablet Take 500 mg by mouth two times a day as needed for pain. - aspirin, enteric coated (ASPIRIN, ENTERIC COATED) 81 mg EC tablet Take 81 mg by mouth once daily. - metoprolol tartrate, short acting, (LOPRESSOR) 25 mg tablet Take 25 mg by mouth two times a day. - rosuvastatin (CRESTOR) 40 mg tablet Take 40 mg by mouth once daily. - OTC PRODUCT Shaklee Iron: Take two tablets by mouth once daily. - Blood-Glucose Meter,Continuous (DEXCOM G7 HOME HEALTH NURSE LICENSED PRACTICAL) [facility] Dispense one lifter/driver USE FOR CONTINUOUS GLUCOSE MONITORING. INSULIN USE E11.9 - lancets (ONE TOUCH DELICA) 33 gauge Test blood sugar(s) 4 times daily. Dx: Other DM Code E11.49 Insulin: Yes - Mesalamine (LIALDA) 1.2 gram EC tablet Take 2 tablets by mouth once daily. Per Dr. Aguilar Friend. - VITAMIN C 1,000 MG TAB Take 1,000 mg by mouth once daily. - GLUCOSAMINE CHONDROITIN MAXSTR 500 MG-400 MG CAP Take 1 capsule by mouth once daily. - MULTIVITAMIN TAB Take 1 tablet by mouth once daily. Problem List As Of Date 08/31/2024 Noted Resolved Type II or unspecified type diabetes mellitus w* 01/11/2014 HYPERLIP (more content not included)... Normal [facility] Oncology Visit Reporton -3 Oncology Visit Report [facility] [address] [place] [address] OFFICE VISIT Date of Service: 08/26/24 1007 MR#: [id number] Acct: [id number] Name: VIDAL KAY Rep #: [id number] : 1945 From: Marco Hurtado MD Age/Sex: 79/M Location: [facility] Status: Signed HPI Subjective Date of Service 08/26/24 Chief Complaint F/u for WM/OSMAN History of Present Illness 79-year-old man was seen at [facility], found to have proteinuria, workup showed increased IgM. IgM level was 3819 on 12/28/2022. He underwent a bone marrow aspiration and biopsy on 01/23/2023. 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 His IgM was 3642 on 05/23/2023. Rituxan was suggested by Dr. Landry but patient was not ready to start any treatment. Requested a second opinion at [facility]. He was found to have Iron deficiency Anemia so IV Iron-Ferrlecit IV with no improvement. He was still tired so IV Venofer with Rituxan was suggested and Pt agreed to Proceed. Started Venofer and Rituxan on 08/28/2023. Finished week 4 Rituxan on 09/18/2023. Got another weekly x 4 Rituxan therapy from 12/18/2023 to 01/07/2024. He is on observation. Comes for follow up. Feels better. Tiredness has resolved. Got shingles on the L chest wall, improving. [facility] Medical History Shingles Bilateral carotid artery disease BPH (benign prostatic hyperplasia) Anemia Wears glasses Cancer Low iron History of ulceration Former smoker History of echocardiogram Cardiology follow-up encounter Non-rheumatic mitral regurgitation Nonrheumatic aortic (valve) stenosis Mixed hyperlipidemia Essential hypertension Stomach ulcer Crohn disease Ulcerative colitis Heart murmur High cholesterol Diabetes type 2, controlled Bone fracture Back problem Surgical History History of cataract surgery History of colonoscopy ( 04/2023) History of cardiac catheterization History of tonsillectomy S/P aortic valve replacement S/P CABG x 2 History of carpal tunnel surgery Family History Mother Diabetes Liver disease CAD (coronary artery disease) Father Diabetes CAD (coronary artery disease) History of coronary artery bypass surgery Sister Breast cancer Daughter Breast cancer Social History Smoking Status: Former smoker Tobacco: How many years used: 20 Smokeless tobacco user: snuff how long ago did patient quit smokin+ years second hand exposure: No alcohol intake: never substance use type: does not use caffeine: Yes Type: coffee Number of servings: 5 Intake Vital Signs 02/20/24 11:20 07/29/24 07:30 08/26/24 10:10 Height 5 ft 6 in 5 ft 6 in 5 ft 6 in Weight: 72.575 kg 69.4 kg BMI 25.8 24.7 BP 151/71 H 101/62 Blood Pressure Location Lt brachial Lt brachial Position Sitting Sitting Respiration 18 18 Pulse 64 71 Pulse Source Monitor Monitor Temp 98.5 F Temperature Source Temporal Artery Pulse Oximetry (%) 99 98 Oxygen Delivery Method room air Intake Is patient in pain?: Yes (pain from shingles) Pain scale (1-10): 5 Allergies No Known Allergies Allergy (Verified 08/26/24 10:08) Medications ???Medication ???Instructions ???Recorded ???Confirmed ???Type pen needle, diabetic 32 gauge x #30 ea 06/02/18 08/26/24 Rx 5/32 (Comfort EZ Pen [place]) ascorbic acid (vitamin C) 1,000 mg 1 g PO DAILY 05/31/21 08/26/24 H istory tablet glucosamine-chondroitin 500 mg-400 1 cap PO DAILY 05/31/21 08/26/24 History mg capsule multivitamin 1 tab PO DAILY 05/31/21 08/26/24 H istory ramipril 5 mg capsule 5 mg PO DAILY 05/31/21 08/26/24 Hi story dapagliflozin propanediol 10 mg 10 mg PO DAILY 06/15/21 08/26/24 H istory tablet (Farxiga) aspirin 81 mg tablet,delayed 81 mg PO DAILY 01/24/23 08/26/24 H istory release (Adult Aspirin Regimen) rosuvastatin 40 mg tablet 40 mg PO DAILY 04/16/23 08/26/24 H istory acetaminophen 500 mg capsule 500 mg PO Q6H PRN pain 07/02/23 History ferrous sulfate 325 mg (65 mg 325 mg PO DAILY 07/02/23 08/26/24 History iron) tablet insulin glargine 100 unit/mL (3 12 unit subcut QHS 07/15/23 History mL) subcutaneous pen (Lantus Solostar U-100 Insulin) insulin lispro 100 unit/mL 4 unit subcut TID 07/15/23 5 History subcutaneous pen (Humalog KwikPen (U-100) Insulin) mesalamine 1.2 gram tablet,delayed 1.2 g PO BID #180 t (more content not included)... Normal [facility] CNOVon 08-19-2024 OV Office Visit (INTMWS ) VIDAL KAY ([id number]) 1945 M Date Time Provider Department 08/19/24 9:20 AM LYNN VIEYRA INTMWS During your visit today, we recorded the following information about you: Pulse Respiration Blood pressure Weight 88/minute 12/minute 132/76 69.1 kg Lynn Vieyra, [employer]CAMPUS REP 08/19/2024 9:34 AM Signed We discussed your shingles: - Your rash is improving, and there are no new spots. The rash is drying up, and the larger blister is smaller and less inflamed, which is expected at this stage of healing. - Continue using the cream (as prescribed) only as needed for itching or discomfort. It does not need to be applied three times a day unless necessary. You can apply it directly to the areas that are bothering you. It is not harmful to use it once daily, but it is not required if you are not experiencing symptoms. - You have one refill left for the cream if needed. - The ibuprofen (800 mg) should only be taken as needed for pain or discomfort. If you are not experiencing pain, you do not need to take it. We recommend reducing your use of ibuprofen and switching back to Tylenol if needed for pain relief, as long-term use of high-dose ibuprofen is not advised. - Finish the antiviral medication (valacyclovir) as prescribed. You mentioned you have one dose left; take it at the scheduled time, and then you are done with this medication. Please continue monitoring your symptoms. If you notice any new spots, worsening pain, or other concerns, contact our office. Lynn Vieyra APRN.[facility] 08/19/2024 9:38 AM Signed CC: Patient presents with: Follow Up: Shingles x 1 week HPI Recording using ambient Addy software for draft documentation of the visit was discussed with the patient/authorized traffic workforce representative; all questions welcomed and answered. Patient/authorized traffic workforce representative agreed to proceed John is a 79-year-old male presenting for follow-up on shingles. John reports significant improvement in pain and rash associated with shingles. He has been applying a prescribed cream TID, and reports that ibuprofen 800 mg has been effective in managing pain. He has one dose of valacyclovir remaining, which he plans to take at lunchtime. He denies the appearance of new lesions and observes that existing ones are resolving. Review of Systems Constitutional: Negative for chills, diaphoresis, fatigue and fever. 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 Hurtado, [facility] PAST SURGICAL HISTORY Procedure Laterality Date CABG (2) VEIN GRAFTS AND ARTERIAL GRAFT(S 02/28/2023 COLONOSCOPY FLX DX W/COLLJ SPEC WHEN PFRMD 03/11/1995 Colonoscopy COLONOSCOPY FLX DX W/COLLJ SPEC WHEN PFRMD 07/12/2008 Colonoscopy COLONOSCOPY FLX DX W/COLLJ SPEC WHEN PFRMD 05/16/2015 Colonoscopy COLONOSCOPY FLX DX W/COLLJ SPEC WHEN PFRMD 06/08/2019 Colonoscopy COLONOSCOPY W/BIOPSY SINGLE/MULTIPLE 02/28/2006 LEFT HEART CATH,PERCUTANEOUS 02/13/2023 NEUROPLASTY AND/TRANSPOS MEDIAN NRV CARPAL TUNNE 1992 Carpal tunnel decomp, bilateral REPL AORTIC VALVE W/BYP 02/28/2023 Twin Magna Bioprosthetic SIGMOIDOSCOPY FLX DX W/COLLJ SPEC BR/WA IF PFRMD 04/08/2009 SIGMOIDOSCOPY FLX DX W/COLLJ SPEC BR/WA IF PFRMD 06/23/2015 Sigmoidoscopy, flexible ALLERGIES Patient has no known allergies. MEDICATIONS valACYclovir (VALTREX) 1 gram tablet Take 1 tablet by mouth three times a day for 7 days. for 7 days ibuprofen (MOTRIN) 800 mg tablet Take 1 tablet by mouth every 8 hours as needed for pain. triamcinolone acetonide (KENALOG) 0.1 % cream Apply 1 application to affected area three times a day as needed for up to 14 days. ramipril (ALTACE) 5 mg capsule Take 1 capsule by mouth once daily. insulin glargine (LANTUS SOLOSTAR U-100 INSULIN) 100 unit/mL (3 mL) Inject 12 Units subcutaneously daily at bedtime. insulin lispro (HUMALOG KWIKPEN INSULIN) 100 unit/mL Inject 4 units with meals PLUS sliding scale #1 (1 unit for every 50 over 150 PRE MEAL blood sugar) ~20 units daily Ins (more content not included)... Normal [facility] CNOVon 08-12-2024 CNOV Office Visit (INTMWS ) VIDAL KAY ([id number]) 1945 Jie Date Time Provider Department 08/12/24 9:00 AM LYNN VIEYRA INTMWS During your visit today, we recorded the following information about you: Temperature Pulse Respiration Blood pressure 98.2 degrees 90/minute 14/minute 136/84 Weight 69.7 kg CookieLynn srinivasan Jie, [employer]CAMPUS REP 08/12/2024 9:23 AM Signed CC: Patient presents with: Rash: Left side x 4 days HPI Vidal Kay is a 79 year old male who presents for above Patient reports painful, itchy rash on the left side of chest and left axilla for about 72 hours. Denies fever, chills, flu like symptoms. He has been taking ibuprofen for the pain with temporary relief. 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 Hurtado, [facility] PAST SURGICAL HISTORY Procedure Laterality Date CABG (2) VEIN GRAFTS AND ARTERIAL GRAFT(S 02/28/2023 COLONOSCOPY FLX DX W/COLLJ SPEC WHEN PFRMD 03/11/1995 Colonoscopy COLONOSCOPY FLX DX W/COLLJ SPEC WHEN PFRMD 07/12/2008 Colonoscopy COLONOSCOPY FLX DX W/COLLJ SPEC WHEN PFRMD 05/16/2015 Colonoscopy COLONOSCOPY FLX DX W/COLLJ SPEC WHEN PFRMD 06/08/2019 Colonoscopy COLONOSCOPY W/BIOPSY SINGLE/MULTIPLE 02/28/2006 LEFT HEART CATH,PERCUTANEOUS 02/13/2023 NEUROPLASTY AND/TRANSPOS MEDIAN NRV CARPAL TUNNE 1992 Carpal tunnel decomp, bilateral REPL AORTIC VALVE W/BYP 02/28/2023 Twin [place] Bioprosthetic SIGMOIDOSCOPY FLX DX W/COLLJ SPEC BR/WA IF PFRMD 04/08/2009 SIGMOIDOSCOPY FLX DX W/COLLJ SPEC BR/WA IF PFRMD 06/23/2015 Sigmoidoscopy, flexible ALLERGIES Patient has no known allergies. MEDICATIONS ramipril (ALTACE) 5 mg capsule Take 1 capsule by mouth once daily. insulin glargine (LANTUS SOLOSTAR U-100 INSULIN) 100 unit/mL (3 mL) Inject 12 Units subcutaneously daily at bedtime. insulin lispro (HUMALOG KWIKPEN INSULIN) 100 unit/mL Inject 4 units with meals PLUS sliding scale #1 (1 unit for every 50 over 150 PRE MEAL blood sugar) ~20 units daily FARXIGA 10 mg tablet TAKE 1 TABLET DAILY Blood-Glucose Sensor (DEXCOM G7 SENSOR) rick CHANGE sensor every 10 days. USE FOR CONTINUOUS GLUCOSE MONITORING. INSULIN USE E11.9 flaxseed oil (OMEGA 3 ORAL) Take 1 capsule by mouth once daily. LECITHIN ORAL Take 1 tablet by mouth once daily. acetaminophen (TYLENOL) 500 mg tablet Take 500 mg by mouth two times a day as needed for pain. aspirin, enteric coated (ASPIRIN, ENTERIC COATED) 81 mg EC tablet Take 81 mg by mouth once daily. metoprolol tartrate, short acting, (LOPRESSOR) 25 mg tablet Take 25 mg by mouth two times a day. rosuvastatin (CRESTOR) 40 mg tablet Take 40 mg by mouth once daily. OTC PRODUCT [place] Iron: Take two tablets by mouth once daily. Blood-Glucose Meter,Continuous (DEXCOM G7 HOME HEALTH NURSE LICENSED PRACTICAL) [facility] Dispense one lifter/driver USE FOR CONTINUOUS GLUCOSE MONITORING. INSULIN USE E11.9 Mesalamine (LIALDA) 1.2 gram EC tablet Take 2 tablets by mouth once daily. Per Dr. Jeff Jimenez. VITAMIN C 1,000 MG TAB Take 1,000 mg by mouth once daily. GLUCOSAMINE CHONDROITIN MAXSTR 500 MG-400 MG CAP Take 1 capsule by mouth once daily. MULTIVITAMIN TAB Take 1 tablet by mouth once daily. valACYclovir (VALTREX) 1 gram tablet Take 1 tablet by mouth three times a day for 7 days. for 7 days ibuprofen (MOTRIN) 800 mg tablet Take 1 tablet by mouth every 8 hours as needed for pain. triamcinolone acetonide (KENALOG) 0.1 % cream Apply 1 application to affected area three times a day as needed for up to 14 days. Insulin [place], Disposable, (BD ULTRA-FINE VY PEN NEEDLE) 32 gauge x 5/32 USES 4 per day with insulin injections. lancets (ONE TOUCH DELICA) 33 gauge Test blood sugar(s) 4 times daily. Dx: Other DM Code E11.49 Insulin: Yes FAMILY HISTORY Problem Relation Age of Onset Diabetes Mother 55 CAD Coronary Artery Disease Mother Diabetes Father CAD Coronary Artery Disease Father 55 CABG Breast Cancer Sister Breast Cancer Daughter Social History Tobacco Use Smoking status: Former Types: (more content not included)... Normal [facility] Carotid Duplex Ultrasoundon 08-12-2024 Carotid Duplex Ultrasound [facility] [address] [place] [address] Carotid Duplex Ultrasound 08/12/24 0805 MR#: [id number] Acct: [id number] Name: VIDAL KAY Rep #: [id number] : 1945 79 From: Eduar Erickson MD Attending Dr: MARCELLE Phillips Status: REG CLI Ordering Dr: Nakita Zarate PA Date: 07/28 10/21 Location: [facility] Sex: M C Admitted: Reason For Study Reason For Study: Bilateral Carotid Bruit Rt. Velocities/BP Lt. Velocities/BP Prox CCA 67.7/13.8 cm/sec. Prox CCA 80.9/12.2 cm/sec. Mid CCA 60.0/16.0 cm/sec. Mid CCA 68.6/13.4 cm/sec. Dist CCA 68.8/19.3 cm/sec. Dist CCA 88.3/15.8 cm/sec. Prox ICA 138.1/39.5 cm/sec. Prox ICA 101.4/16.7 cm/sec. Mid ICA 150.9/37.6 cm/sec. Mid ICA 90.4/29.0 cm/sec. Dist ICA 75.4/27.0 cm/sec. Dist ICA 67.4/25.7 cm/sec. Rt. ICA/CCA = 2.5. Lt. ICA/CCA = 1.5. Prox ECA 112.5/6.6 cm/sec. Prox ECA 85.8/6.0 cm/sec. Rt. Vert. 54.8/17.5 cm/sec. Lt. Vert. 57.6/13.4 cm/sec. Right Extracranial There is heterogeneous, irregular atherosclerotic plaque noted in the right common carotid artery. There is heterogeneous, irregular atherosclerotic plaque noted in the right internal carotid artery. There is heterogeneous, irregular atherosclerotic plaque noted in the right external carotid artery. Antegrade flow is noted in the right vertebral artery. Left Extracranial There is heterogeneous, irregular atherosclerotic plaque noted in the left common carotid artery. There is heterogeneous, irregular atherosclerotic plaque noted in the left internal carotid artery. There is heterogeneous, irregular atherosclerotic plaque noted in the left external carotid artery. Antegrade flow is noted in the left vertebral artery. Procedure Carotid Duplex 28135. This is a Carotid Duplex examination using B-mode, color flow and specral Doppler. The exam was diagnostic. Exam performed in department. VL/Carotid Duplex Ultrasound Interpretation Summary Moderate (50-69%) stenosis right extracranial internal carotid. Mild (<50%) stenosis left extracranial internal carotid. Patent and antegrade vertebrals bilaterally. Ordering Physician: Nakita Zarate Referring Physician: Felix Bill M.D. Performed By: Dominik Mederos, Xuan 08/12/241717 Date Eduar Erickson MD CC: Dr. Felix Bill MD; MARCELLE Phillips Date Dictated: 08/12/24804 Date Transcribed: 08/12/241717 Rod Pointer: Signed Normal [facility] RAMESH + Protein Elect, Serumon 08-10-2024 Albumin [Mass/Vol] 4.3 g/dL Normal 2.9-4.4 [facility] Comment on above: Order Comment: Test( s) 875400-Czswbjzck, Serumwas developed and its performance characteristicsdetermined by [facility]. It has not been cleared or approvedby the Food and Drug Administration.Y Performed By: #### L 504.2610, L100.0100, L501.1400, L500.4050 #### [facility] [address] [place], [address] Albumin/Globulin [Mass ratio] 1.8 {ratio} High 0.7-1.7 [facility] Comment on above: Order Comment: Test( s) 971852-Axfremrtt, Serumwas developed and its performance characteristicsdetermined by [facility]. It has not been cleared or approvedby the Food and Drug Administration.Y Performed By: #### L 504.2610, L100.0100, L501.1400, L500.4050 #### [facility] [address] [place], [address] PWVKL-7-IKTM 0.2 g/dL Normal 0.0-0.4 [facility] Comment on above: Order Comment: Test( s) 971726-Pjximbycb, Serumwas developed and its performance characteristicsdetermined by [employer]. It has not been cleared or approvedby the Food and Drug Administration.Y Performed By: #### L 504.2610, L100.0100, L501.1400, L500.4050 #### [facility] [address] [place], [address] NMINI-7-SHYN 0.7 g/dL Normal 0.4-1.0 [facility] Comment on above: Order Comment: Test( s) 529940-Tvmhyrnne, Serumwas developed and its performance characteristicsdetermined by [employer] Give. It has not been cleared or approvedby the Food and Drug Administration.Y Performed By: #### L 504.2610, L100.0100, L501.1400, L500.4050 #### [facility] [address] [place], [address] BETA GLOBULIN 1.2 g/dL Normal 0.7-1.3 [facility] Comment on above: Order Comment: Test( s) 541986-Yscbkvuqx, Serumwas developed and its performance characteristicsdetermined by [employer]. It has not been cleared or approvedby the Food and Drug Administration.Y Performed By: #### L 504.2610, L100.0100, L501.1400, L500.4050 #### [facility] [address] [place], [address] GAMMA GLOBULIN 0.4 g/dL Normal 0.4-1.8 [facility] Comment on above: Order Comment: Test( s) 576415-Mmopmgbgl, Serumwas developed and its performance characteristicsdetermined by [employer]. It has not been cleared or approvedby the Food and Drug Administration.Y Performed By: #### L 504.2610, L100.0100, L501.1400, L500.4050 #### [facility] [address] [place] [id number] Globulin (S) [Mass/Vol] 2.5 g/dL Normal 2.2-3.9 [facility] Comment on above: Order Comment: Test( s) [id number]-Zgigutbzy, Serumwas developed and its performance characteristicsdetermined by [employer]. It has not been cleared or approvedby the Food and Drug Administration.Y Performed By: #### L 504.2610, L100.0100, L501.1400, L500.4050 #### [facility] [address] [facility] [address] RAMESH RESULT,S Comment: Normal . [facility] Comment on above: Order Comment: Test( s) 559420-Zpmadquws, Serumwas developed and its performance characteristicsdetermined by [employer]. It has not been cleared or approvedby the Food and Drug Administration.Y Result Comment: RAMESH shows asymmetrical IgM suggestive of a monoclonal protein. Performed By: #### L 504.2610, L100.0100, L501.1400, L500.4050 #### [facility] [address] [place] [id number] IMMUNOGLOB A QN 35 mg/dL Low 61-437 [facility] Comment on above: Order Comment: Test( s) 199752-Tmmfedlqi, Serumwas developed and its performance characteristicsdetermined by 51 Give. It has not been cleared or approvedby the Food and Drug Administration.Y Result Comment: Resu lt confirmed on concentration. Performed By: #### L 504.2610, L100.0100, L501.1400, L500.4050 #### [facility] [address] [place], [address] IMMUNOGLOB G QN 393 mg/dL Low 603-1613 [facility] Comment on above: Order Comment: Test( s) 031662-Otnnzicdx, Serumwas developed and its performance characteristicsdetermined by 51 Give. It has not been cleared or approvedby the Food and Drug Administration.Y Performed By: #### L 504.2610, L100.0100, L501.1400, L500.4050 #### [facility] [address] [place], [address] IMMUNOGLOB M QN 815 mg/dL High 15-143 [facility] Comment on above: Order Comment: Test( s) 523553-Uqygnhbmu, Serumwas developed and its performance characteristicsdetermined by 51 Give. It has not been cleared or approvedby the Food and Drug Administration.Y Result Comment: Resu lts confirmed on dilution. Performed By: #### L 504.2610, L100.0100, L501.1400, L500.4050 #### [facility] [address] [place], [address] M-Donnell Comment: Normal Not Observed [facility] Comment on above: Order Comment: Test( s) 257630-Gzrxdjckr, Serumwas developed and its performance characteristicsdetermined by 51 Give. It has not been cleared or approvedby the Food and Drug Administration.Y Result Comment: SPE shows atypical staining at th point of application. Sample was pretreated with 2-mercaptoethanol. Performed By: #### L 504.2610, L100.0100, L501.1400, L500.4050 #### [facility] [address] [place], [address] NOTE: Comment Normal . [facility] Comment on above: Order Comment: Test( s) [id number]-Afdpaznby, Serumwas developed and its performance characteristicsdetermined by [facility]. It has not been cleared or approvedby the Food and Drug Administration.Y Result Comment: Prot ein electrophoresis scan will follow via computer, mail, or furnace tapper delivery. Performed By: #### L 504.2610, L100.0100, L501.1400, L500.4050 #### [facility] [address] [place], [address] Protein [Mass/Vol] 6.8 g/dL Normal 6.0-8.5 [facility] Comment on above: Order Comment: Test( s) 696683-Mjlfxugdi, Serumwas developed and its performance characteristicsdetermined by 51 Give. It has not been cleared or approvedby the Food and Drug Administration.Y Performed By: #### L 504.2610, L100.0100, L501.1400, L500.4050 #### [facility] [address] [place], [place], [id number] (907) Viscosity, Serumon 5 VISCOSITY,SERUM 1.6 rel.saline Normal 1.4-2.1 [facility] Comment on above: Order Comment: Test( s) 507801-Agkmdbgqa, Serumwas developed and its performance characteristicsdetermined by [facility]. It has not been cleared or approvedby the Food and Drug Administration. Result Comment: Valu es above 2.7 may indicate paraproteinemia is present. Performed at: [address] [id number] [facility]: Elías Bush PhD, Phone: [phone] Performed at: [address] [id number] [facility]: Bailee Barahona MD, Phone: [phone] Performed By: #### L 504.2610, L100.0100, L501.1400, L500.4050 #### [facility] [address] [place], [address] Immunoglobulins G/A/Mon 04-1 -2024 IMMUNOGLOB A QN 36 mg/dL Low 61-437 [facility] Comment on above: Order Comment: Y Result Comment: Resu lt confirmed on concentration. Performed By: #### L 100.0100, L503.6030, L101.9900, L3410.1700, L100.9950, L3100.3425, L501.6710, L500.4050 #### [facility] [address] [place], [address] IMMUNOGLOB G QN 403 mg/dL Low 603-1613 [facility] Comment on above: Order Comment: Y Performed By: #### L 100.0100, L503.6030, L101.9900, L3410.1700, L100.9950, L3100.3425, L501.6710, L500.4050 #### [facility] [address] [place], [address] IMMUNOGLOB M QN 815 mg/dL High 15-143 [facility] Comment on above: Order Comment: Y Result Comment: Resu lts confirmed on dilution. Performed By: #### L 100.0100, L503.6030, L101.9900, L3410.1700, L100.9950, L3100.3425, L501.6710, L500.4050 #### [facility] [address] [place], [address] [place] Lambda Light Chainson 08-06-2024 FR KAPPA LT CHN 13.7 mg/L Normal 3.3-19.4 [facility] Comment on above: Performed By: #### L 504.2610, L100.0100, L501.1400, L500.4050 #### [facility] [address] [place], [address] FR LAMBDA LT CH 8.2 mg/L Normal 5.7-26.3 [facility] Comment on above: Performed By: #### L 504.2610, L100.0100, L501.1400, L500.4050 #### [facility] [address] [place], [address] KAPPA/LAMBDA % 1.67 Abnormal 0.26-1.65 [facility] Comment on above: Result Comment: Perf ormed at: - [facility] [id number] [facility]: Elías Bush PhD, Phone: [phone] Performed By: #### L 504.2610, L100.0100, L501.1400, L500.4050 #### [facility] [address] [place], [place], [id number] Absolute lymphocyte countOrd ered By: Marco Hurtado on 08-05-2024 Lymphocytes Auto (Unsp spec) [#/Vol] 1.39 10*3/uL 0.83-4.51 [facility] Absolute neutrophil countOrd ered By: Marco Hurtado on 08-05-2024 Neutrophils (Bld) [#/Vol] 3.1 10*3/uL 2.0-7.7 [facility] Albumin Elph [Mass/Vol]Order ed By: Marco Hurtado on 08-05-2024 Albumin [Mass/Vol] 4.3 g/dL 2.9-4.4 [facility] Anion gap in Serum or Plasma Ordered By: Marco Hurtado on 08-05-2024 Anion gap [Moles/Vol] 10 mmol/L 5-15 [facility] Automated lymphocyte count a s percentage of total leukocytesOrdered By: Marco Hurtado on 08-05-2024 Lymphocytes/100 WBC Auto (Unsp spec) 26.0 % 19-41 [facility] BUN/creatinine ratioOrdered By: Marco Hurtado on 08-05-2024 Urea nitrogen/Creatinine [Mass ratio] 33.3 mg/mg High 10-20 [facility] Basophil percentageOrdered B y: Marco Hurtado on 08-05-2024 Basophils/100 WBC (Bld) 1.1 % High 0-1 [facility] Bilirubin directOrdered By: Nakita Zarate on 08-05-2024 Bilirubin.direct [Mass/Vol] 0.16 mg/dL 0.00-0.30 [facility] Bilirubin, totalOrdered By: Nakita Zarate on 08-05-2024 Bilirubin [Mass/Vol] 0.33 mg/dL 0.00-1.30 [facility] CBC W/Diff, Automatedon 04-0 Absolute Lymph 1.39 X10 3/uL Normal 0.83-4.51 [facility] Comment on above: Performed By: #### L 100.0100, L503.6030, L101.9900, L3410.1700, L100.9950, L3100.3425, L501.6710, L500.4050 #### [facility] [address] [place], [address] Absolute Neut 3.1 X10 3/uL Normal 2.0-7.7 [facility] Comment on above: Performed By: #### L 100.0100, L503.6030, L101.9900, L3410.1700, L100.9950, L3100.3425, L501.6710, L500.4050 #### [facility] [address] [place], [address] Basophils/100 WBC (Bld) 1.1 % High 0-1 [facility] Comment on above: Performed By: #### L 100.0100, L503.6030, L101.9900, L3410.1700, L100.9950, L3100.3425, L501.6710, L500.4050 #### [facility] [address] [place], [address] Eosinophils/100 WBC (Bld) 2.2 % Normal 0-5 [facility] Comment on above: Performed By: #### L 100.0100, L503.6030, L101.9900, L3410.1700, L100.9950, L3100.3425, L501.6710, L500.4050 #### [facility] [address] [place], [address] Erythrocyte distribution width (RBC) [Ratio] 13.4 % Normal 11.6-14.6 [facility] Comment on above: Performed By: #### L 100.0100, L503.6030, L101.9900, L3410.1700, L100.9950, L3100.3425, L501.6710, L500.4050 #### [facility] [address] [place], [address] Hematocrit (Bld) [Volume fraction] 35.8 % Low 40-54 [facility] Comment on above: Performed By: #### L 100.0100, L503.6030, L101.9900, L3410.1700, L100.9950, L3100.3425, L501.6710, L500.4050 #### [facility] [address] [place], [address] Hemoglobin (Bld) [Mass/Vol] 11.7 g/dL Low 13.0-16.5 [facility] Comment on above: Performed By: #### L 100.0100, L503.6030, L101.9900, L3410.1700, L100.9950, L3100.3425, L501.6710, L500.4050 #### [facility] [address] [place], [address] IG% 0.400 Normal 0.0-0.9 [facility] Comment on above: Result Comment: IG% - Immature Granulocytes (promyelocytes, myelocytes and metamyelocytes) > 1% indicates that a LEFT SHIFT is Present. Performed By: #### L 100.0100, L503.6030, L101.9900, L3410.1700, L100.9950, L3100.3425, L501.6710, L500.4050 #### [facility] [address] [place], [address] Lymphocytes/100 WBC (Bld) 26.0 % Normal 19-41 [facility] Comment on above: Performed By: #### L 100.0100, L503.6030, L101.9900, L3410.1700, L100.9950, L3100.3425, L501.6710, L500.4050 #### [facility] [address] [place], [address] MCH (RBC) [Entitic mass] 27.5 pg Normal 27.0-32.0 [facility] Comment on above: Performed By: #### L 100.0100, L503.6030, L101.9900, L3410.1700, L100.9950, L3100.3425, L501.6710, L500.4050 #### [facility] [address] [place], [address] MCHC (RBC) [Mass/Vol] 32.7 g/dL Normal 32-36 [facility] Comment on above: Performed By: #### L 100.0100, L503.6030, L101.9900, L3410.1700, L100.9950, L3100.3425, L501.6710, L500.4050 #### [facility] [address] [place], [address] MCV (RBC) [Entitic vol] 84.2 fL Normal 80-94 [facility] Comment on above: Performed By: #### L 100.0100, L503.6030, L101.9900, L3410.1700, L100.9950, L3100.3425, L501.6710, L500.4050 #### [facility] [address] [place], [address] Monocytes/100 WBC (Bld) 12.0 % High 0-10 [facility] Comment on above: Performed By: #### L 100.0100, L503.6030, L101.9900, L3410.1700, L100.9950, L3100.3425, L501.6710, L500.4050 #### [facility] [address] [place], [address] Neutrophils/100 WBC (Bld) 58.3 % Normal 47-70 [facility] Comment on above: Performed By: #### L 100.0100, L503.6030, L101.9900, L3410.1700, L100.9950, L3100.3425, L501.6710, L500.4050 #### [facility] [address] [place], [address] Nucleated RBC (Bld) [#/Vol] 0 10*3/uL Normal 0-5 [facility] Comment on above: Performed By: #### L 100.0100, L503.6030, L101.9900, L3410.1700, L100.9950, L3100.3425, L501.6710, L500.4050 #### [facility] [address] [place], [address] Platelet mean volume (Bld) [Entitic vol] 9.8 fL Normal 6.2-12.0 [facility] Comment on above: Performed By: #### L 100.0100, L503.6030, L101.9900, L3410.1700, L100.9950, L3100.3425, L501.6710, L500.4050 #### [facility] [address] [place], [address] Platelets (Bld) [#/Vol] 211 10*3/uL Normal 150-450 [facility] Comment on above: Performed By: #### L 100.0100, L503.6030, L101.9900, L3410.1700, L100.9950, L3100.3425, L501.6710, L500.4050 #### [facility] [address] [place], [address] RBC (Bld) [#/Vol] 4.25 10*6/uL Low 4.6-6.2 [facility] Comment on above: Performed By: #### L 100.0100, L503.6030, L101.9900, L3410.1700, L100.9950, L3100.3425, L501.6710, L500.4050 #### [facility] [address] [place], [address] RDW SD 40.8 fl Normal 35.1-43.9 [facility] Comment on above: Performed By: #### L 100.0100, L503.6030, L101.9900, L3410.1700, L100.9950, L3100.3425, L501.6710, L500.4050 #### [facility] [address] [place], [address] WBC (Bld) [#/Vol] 5.4 10*3/uL Normal 4.4-11.0 [facility] Comment on above: Performed By: #### L 100.0100, L503.6030, L101.9900, L3410.1700, L100.9950, L3100.3425, L501.6710, L500.4050 #### [facility] [address] [place], [address] CRPon 08-05-2024 C-REACTIVE PROT < 3.00 Normal 0.0-3.0 [facility] Comment on above: Performed By: #### L 100.0100, L503.6030, L101.9900, L3410.1700, L100.9950, L3100.3425, L501.6710, L500.4050 #### [facility] [address] [place], [place], [phone] Calculated very low density lipoprotein (VLDL) cholesterol measurementOrdered By: Nakita Zarate on 08-05-2024 Calculated very low density lipoprotein (VLDL) cholesterol measurement 18 mg/dL 5-40 [facility] Carbon dioxide, total [Moles /volume] in Central venous bloodOrdered By: Marco Hurtado on 08-05-2024 CO2 [Moles/Vol] 22.9 mmol/L 21.0-32.0 [facility] Chloride assayOrdered By: Yesenia Hurtado on 08-05-2024 Chloride [Moles/Vol] 104 mmol/L 98-108 [facility] Comprehensive Metabolic Prof ilon 08-05-2024 Albumin [Mass/Vol] 4.5 g/dL Normal 3.4-4.8 [facility] Comment on above: Performed By: #### L 100.0100, L503.6030, L101.9900, L3410.1700, L100.9950, L3100.3425, L501.6710, L500.4050 #### [facility] [address] [place], [place], [phone] Albumin/Globulin [Mass ratio] 1.7 {ratio} Normal 0.9-2.4 [facility] Comment on above: Performed By: #### L 100.0100, L503.6030, L101.9900, L3410.1700, L100.9950, L3100.3425, L501.6710, L500.4050 #### [facility] [address] [place], [place], [phone] ALK PHOS 89 U/L Normal 40-129 [facility] Comment on above: Performed By: #### L 100.0100, L503.6030, L101.9900, L3410.1700, L100.9950, L3100.3425, L501.6710, L500.4050 #### [facility] [address] [place], [address] ALT [Catalytic activity/Vol] 30 U/L Normal <=46 [facility] Comment on above: Performed By: #### L 100.0100, L503.6030, L101.9900, L3410.1700, L100.9950, L3100.3425, L501.6710, L500.4050 #### [facility] [address] [place], [address] AST [Catalytic activity/Vol] 31 U/L Normal <=37 [facility] Comment on above: Performed By: #### L 100.0100, L503.6030, L101.9900, L3410.1700, L100.9950, L3100.3425, L501.6710, L500.4050 #### [facility] [address] [place], [address] Bilirubin [Mass/Vol] 0.32 mg/dL Normal 0.00-1.30 [facility] Comment on above: Performed By: #### L 100.0100, L503.6030, L101.9900, L3410.1700, L100.9950, L3100.3425, L501.6710, L500.4050 #### [facility] [address] [place], [address] BUN/CRE 33.3 RATIO High 10-20 [facility] Comment on above: Performed By: #### L 100.0100, L503.6030, L101.9900, L3410.1700, L100.9950, L3100.3425, L501.6710, L500.4050 #### [facility] [address] [place], [address] Calcium [Mass/Vol] 9.7 mg/dL Normal 7.6-11.0 [facility] Comment on above: Performed By: #### L 100.0100, L503.6030, L101.9900, L3410.1700, L100.9950, L3100.3425, L501.6710, L500.4050 #### [facility] [address] [place], [address] Chloride [Moles/Vol] 104 mmol/L Normal 98-108 [facility] Comment on above: Performed By: #### L 100.0100, L503.6030, L101.9900, L3410.1700, L100.9950, L3100.3425, L501.6710, L500.4050 #### [facility] [address] [place], [address] CO2 [Moles/Vol] 22.9 mmol/L Normal 21.0-32.0 [facility] Comment on above: Performed By: #### L 100.0100, L503.6030, L101.9900, L3410.1700, L100.9950, L3100.3425, L501.6710, L500.4050 #### [facility] [address] [place], [address] Creatinine [Mass/Vol] 1.03 mg/dL Normal 0.70-1.20 [facility] Comment on above: Performed By: #### L 100.0100, L503.6030, L101.9900, L3410.1700, L100.9950, L3100.3425, L501.6710, L500.4050 #### [facility] [address] [place], [address] ECRCL 52.48 ml/min Normal 50-250 [facility] Comment on above: Performed By: #### L 100.0100, L503.6030, L101.9900, L3410.1700, L100.9950, L3100.3425, L501.6710, L500.4050 #### [facility] [address] [place], [address] GAP 10 Normal 5-15 [facility] Comment on above: Performed By: #### L 100.0100, L503.6030, L101.9900, L3410.1700, L100.9950, L3100.3425, L501.6710, L500.4050 #### [facility] [address] [place], [address] GFR/1.73 sq M.predicted among non-blacks MDRD (S/P/Bld) [Vol rate/Area] 74 mL/min/{1.73_m2} Normal >60 [facility] Comment on above: Result Comment: mL/m in/1.73m2 CKD-EPI Creatinine Equation (2020) Performed By: #### L 100.0100, L503.6030, L101.9900, L3410.1700, L100.9950, L3100.3425, L501.6710, L500.4050 #### [facility] [address] [place], [address] Globulin (S) [Mass/Vol] 2.6 g/dL Normal 2.2-4.2 [facility] Comment on above: Performed By: #### L 100.0100, L503.6030, L101.9900, L3410.1700, L100.9950, L3100.3425, L501.6710, L500.4050 #### [facility] [address] [place], [address] Glucose [Mass/Vol] 150 mg/dL High 70-99 [facility] Comment on above: Performed By: #### L 100.0100, L503.6030, L101.9900, L3410.1700, L100.9950, L3100.3425, L501.6710, L500.4050 #### [facility] [address] [place], [address] Potassium [Moles/Vol] 4.6 mmol/L Normal 3.3-5.1 [facility] Comment on above: Performed By: #### L 100.0100, L503.6030, L101.9900, L3410.1700, L100.9950, L3100.3425, L501.6710, L500.4050 #### [facility] [address] [place], [address] Sodium [Moles/Vol] 137 mmol/L Normal 133-145 [facility] Comment on above: Performed By: #### L 100.0100, L503.6030, L101.9900, L3410.1700, L100.9950, L3100.3425, L501.6710, L500.4050 #### [facility] [address] [place], [address] T PROT 7.1 g/dL Normal 5.9-8.4 [facility] Comment on above: Performed By: #### L 100.0100, L503.6030, L101.9900, L3410.1700, L100.9950, L3100.3425, L501.6710, L500.4050 #### [facility] [address] [place], [address] Urea nitrogen [Mass/Vol] 34 mg/dL High 4-19 [facility] Comment on above: Performed By: #### L 100.0100, L503.6030, L101.9900, L3410.1700, L100.9950, L3100.3425, L501.6710, L500.4050 #### [facility] [address] [place], [address] Eosinophil percentageOrdered By: Marco Hurtado on 08-05-2024 Eosinophils/100 WBC (Bld) 2.2 % 0-5 [facility] Erythrocyte Sed Rateon 08-05 SED RATE 25 mm/hr High 0-20 [facility] Comment on above: Performed By: #### L 100.0100, L503.6030, L101.9900, L3410.1700, L100.9950, L3100.3425, L501.6710, L500.4050 #### [facility] [address] [place], [address] Erythrocyte distribution wid th ratioOrdered By: [facility] on 08-05-2024 Erythrocyte distribution width (RBC) [Ratio] 13.4 % 11.6-14.6 [facility] Erythrocyte distribution wid th standard deviationOrdered By: [facility] Erythrocyte distribution width (RBC) [Ratio] 40.8 fl 35.1-43.9 [facility] Erythrocyte sedimentation ra teOrdered By: Marco Hurtado on 08-05-2024 ESR (Bld) [Velocity] 25 mm/h High 0-20 [facility] Ferritinon 08-05-2024 Ferritin [Mass/Vol] 721 ng/mL High 37-417 [facility] Comment on above: Performed By: #### L 504.2610, L100.0100, L501.1400, L500.4050 #### [facility] [address] [place], [address] Folate [Mass/volume] in Seru m or PlasmaOrdered By: Marco Hurtado on 08-05-2024 Folate [Mass/Vol] 19.90 ng/mL 4.60-34.80 [facility] Folates,Serum (Folic Acid)on 08-05-2024 FOLATES,SERUM 19.90 ng/mL Normal 4.60-34.80 [facility] Comment on above: Order Comment: 1 Performed By: #### L 504.2610, L100.0100, L501.1400, L500.4050 #### [facility] [address] [place], [address] Glomerular filtration rate ( GFR) estimation/1.73 sq m using serum, plasma, or whole bOrdered By: Marco Hurtado on 08-05-2024 GFR/1.73 sq M.predicted among non-blacks MDRD (S/P/Bld) [Vol rate/Area] 74 mL/min/{1.73_m2} >60 [facility] Comment on above: mL/min/1.73m2 CKD-EP I Creatinine Equation (2020) Hematocrit Auto (Bld) [Volum e fraction]Ordered By: Marco Hurtado on 08-05-2024 Hematocrit (Bld) [Volume fraction] 35.8 % Low 40-54 [facility] Hemoglobin measurementOrdere d By: Marco Hurtado on 08-05-2024 Hemoglobin (Bld) [Mass/Vol] 11.7 g/dL Low 13.0-16.5 [facility] Immature granulocytes/100 WB C Auto (Bld)Ordered By: Marco Hurtado on 08-05-2024 Immature granulocytes/100 WBC (Bld) 0.400 % 0.0-0.9 [facility] Comment on above: IG% - Immature Granu locytes (promyelocytes, myelocytes and metamyelocytes) > 1% indicates that a LEFT SHIFT is Present. Interpretation of serum or p lasma protein pattern by immunofixation (narrative resultOrdered By: Marco Hurtado on 08-05-2024 Protein Fractions Immunofixation Amari [Interp] Comment: g/dL Not Observed [facility] Comment on above: SPE shows atypical s taining at th point of application.Sample was pretreated with 2-mercaptoethanol. Iron measurement (mass/mass) Ordered By: Marco Hurtado on 08-05-2024 Iron (Unsp spec) [Mass/Mass] 103 ug/dL 65-175 [facility] Iron+Iron Binding Capacityon 08-05-2024 Iron [Mass/Vol] 103 ug/dL Normal 65-175 [facility] Comment on above: Performed By: #### L 100.0100, L503.6030, L101.9900, L3410.1700, L100.9950, L3100.3425, L501.6710, L500.4050 #### [facility] [place], [address] UIBC 167 ug/dL Low 228-428 [facility] Comment on above: Performed By: #### L 100.0100, L503.6030, L101.9900, L3410.1700, L100.9950, L3100.3425, L501.6710, L500.4050 #### [facility] [address] [place], [address] LDHon 08-05-2024 LDH 221 U/L Normal 87-241 [facility] Comment on above: Order Comment: 1 Performed By: #### L 504.2610, L100.0100, L501.1400, L500.4050 #### [facility] [address] [place], [address] LDL calc ser/plasOrdered By: Nakita Zarate on 08-05-2024 Cholesterol in LDL [Mass/Vol] 48 mg/dL [facility] Comment on above: Wdsoxvunqe=252-928 m g/dL & Higher Plja=526 mg/dL or greater Laboratory - Chemistry and C hemistry - challengeOrdered By: Nakita Zarate on 08-05-2024 AST [Catalytic activity/Vol] 30 U/L <38 [facility] Lactate dehydrogenase (LDH) measurementOrdered By: Marco Hurtado on 08-05-2024 LDH [Catalytic activity/Vol] 221 U/L 87-241 [facility] Lipid Profileon 08-05-2024 CHOL:HDL 1.77 Normal [facility] Comment on above: Performed By: #### L 504.2610, L100.0100, L501.1400, L500.4050 #### [facility] [address] [place], [address] Cholesterol [Mass/Vol] 153 mg/dL Normal <=200 [facility] Comment on above: Result Comment: Chol esterol level, Desirable <200 mg/dL Borderline high cholesterol 200-239 mg/dL High cholesterol >=240 mg/dL Recommendations of the NCEP Adult Treatment Panel for the following risk-cutoff thresholds for the [place] population. Performed By: #### L 504.2610, L100.0100, L501.1400, L500.4050 #### [facility] [address] [place], [address] Cholesterol in HDL [Mass/Vol] 87 mg/dL Normal [facility] Comment on above: Result Comment: Lluvia onal Cholesterol Education Program (NCEP) guidelines: <40 mg/dL: Low HDL-cholesterol (major risk factor for CHD) >= 60 mg/dL: High HDL-cholesterol (negative risk factor for CHD) HDL-cholesterol is affected by a number of factors, e.g. smoking, exercise, hormones, sex and age. Performed By: #### L 504.2610, L100.0100, L501.1400, L500.4050 #### [facility] [address] [place], [address] Cholesterol in LDL [Mass/Vol] 48 mg/dL Normal [facility] Comment on above: Result Comment: Bord nomtra=818-070 mg/dL Higher Zfza=397 mg/dL or greater Performed By: #### L 504.2610, L100.0100, L501.1400, L500.4050 #### [facility] [address] [place], [address] Cholesterol in VLDL [Mass/Vol] 18 mg/dL Normal 5-40 [facility] Comment on above: Performed By: #### L 504.2610, L100.0100, L501.1400, L500.4050 #### [facility] [address] [place], [address] Triglyceride [Mass/Vol] 91 mg/dL Normal [facility] Comment on above: Result Comment: The drugs N-Acetylcysteine and Metamizole may falsely depress this assay. Normal range: <150 mg/dL Borderline High: 150-199 mg/dL High: 200-499 mg/dL Very High: >500 mg/dL Performed By: #### L 504.2610, L100.0100, L501.1400, L500.4050 #### [facility] [address] [place], [address] Liver Profileon 08-05-2024 Albumin [Mass/Vol] 4.5 g/dL Normal 3.4-4.8 [facility] Comment on above: Performed By: #### L 504.2610, L100.0100, L501.1400, L500.4050 #### [facility] [address] [place], [address] ALK PHOS 90 U/L Normal 40-129 [facility] Comment on above: Performed By: #### L 504.2610, L100.0100, L501.1400, L500.4050 #### [facility] [address] [place], [address] ALT [Catalytic activity/Vol] 30 U/L Normal <=46 [facility] Comment on above: Performed By: #### L 504.2610, L100.0100, L501.1400, L500.4050 #### [facility] [address] [place], [address] AST [Catalytic activity/Vol] 30 U/L Normal <=37 [facility] Comment on above: Performed By: #### L 504.2610, L100.0100, L501.1400, L500.4050 #### [facility] [address] [place], [address] Bilirubin [Mass/Vol] 0.33 mg/dL Normal 0.00-1.30 [facility] Comment on above: Performed By: #### L 504.2610, L100.0100, L501.1400, L500.4050 #### [facility] [address] [place], [address] Bilirubin.direct [Mass/Vol] 0.16 mg/dL Normal 0.00-0.30 [facility] Comment on above: Performed By: #### L 504.2610, L100.0100, L501.1400, L500.4050 #### [facility] [address] [place], [address] Globulin (S) [Mass/Vol] 2.7 g/dL Normal 2.2-4.2 [facility] Comment on above: Performed By: #### L 504.2610, L100.0100, L501.1400, L500.4050 #### [facility] [address] [place], [address] T PROT 7.1 g/dL Normal 5.9-8.4 [facility] Comment on above: Performed By: #### L 504.2610, L100.0100, L501.1400, L500.4050 #### [facility] [address] [place], [address] MCV (mean corpuscular volume ) determinationOrdered By: Marco Hurtado on 08-05-2024 MCV (RBC) [Entitic vol] 84.2 fL 80-94 [facility] Mean corpuscular hemoglobin (MCH) determinationOrdered By: Marco Hurtado on 08-05-2024 MCH (RBC) [Entitic mass] 27.5 pg 27.0-32.0 [facility] Mean corpuscular hemoglobin concentration (MCHC) determinationOrdered By: Marco Hurtado on 08-05-2024 MCHC (RBC) [Mass/Vol] 32.7 g/dL 32-36 [facility] Mean platelet volume determi nationOrdered By: Marco Hurtado on 08-05-2024 Platelet mean volume (Bld) [Entitic vol] 9.8 fL 6.2-12.0 [facility] Monocyte percentageOrdered B y: Marco Hurtado on 08-05-2024 Monocytes/100 WBC (Bld) 12.0 % High 0-10 [facility] Neutrophil percentageOrdered By: Marco Hurtado on 08-05-2024 Neutrophils/100 WBC (Bld) 58.3 % 47-70 [facility] No Panel InformationOrdered By: Marco Hurtado on 08-05-2024 Addendum Document Comment . [facility] Comment on above: Protein electrophore sis scan will follow via computer,mail, or furnace tapper delivery. Unsaturated Iron Binding Capacity 167 ug/dL Low 228-428 [facility] Nucleated red blood cell per centageOrdered By: Marco Hurtado on 08-05-2024 Nucleated RBC/100 WBC (Bld) [Ratio] 0 % 0-5 [facility] Platelet countOrdered By: Yesenia Hurtado on 08-05-2024 Platelets (Bld) [#/Vol] 211 10*3/uL 150-450 [facility] Potassium measurement (mass/ volume)Ordered By: Marco Hurtado on 08-05-2024 Potassium (Unsp spec) [Mass/Vol] 4.6 mmol/L 3.3-5.1 [facility] Quantitative serum viscosity measurementOrdered By: Marco Hurtado on 08-05-2024 Viscosity (S) [Visc] 1.6 rel.saline 1.4-2.1 [facility] Comment on above: Values above 2.7 may indicate paraproteinemia is present.Performed at: - [facility] [id number] Director: Elías Bush PhD, Phone: [phone] at: [facility] [address] [id number] Director: Bailee Barahona MD, Phone: [phone] RBC Auto (Bld) [#/Vol]Ordere d By: Marco Hurtado on 08-05-2024 RBC (Bld) [#/Vol] 4.25 10*6/uL Low 4.6-6.2 [facility] Retic Panelon 08-05-2024 IM RET FRACTION 9.90 Normal 3.00-15.90 [facility] Comment on above: Performed By: #### L 100.0100, L503.6030, L101.9900, L3410.1700, L100.9950, L3100.3425, L501.6710, L500.4050 #### [facility] [address] [place], [place], [id number] RET-HE 32.3 pg Normal 30-35 [facility] Comment on above: Performed By: #### L 100.0100, L503.6030, L101.9900, L3410.1700, L100.9950, L3100.3425, L501.6710, L500.4050 #### [facility] [address] [place], [place], [id number] ([phone]) Retic Count 0.98 Normal 0.5-1.5 [facility] Comment on above: Performed By: #### L 100.0100, L503.6030, L101.9900, L3410.1700, L100.9950, L3100.3425, L501.6710, L500.4050 #### [facility] [address] [place], [address] Reticulocyte hemoglobin equi valent (RET-He) measurementOrdered By: Marco Hurtado on 08-05-2024 Hemoglobin (Reticulocytes) [Entitic mass] 32.3 pg 30-35 [facility] Reticulocytes Auto (Bld) [#/ Vol]Ordered By: Marco Hurtado on 08-05-2024 Reticulocytes/100 RBC (Bld) 0.98 % 0.5-1.5 [facility] Screening total cholesterol/ high density lipoprotein (HDL) cholesterol ratioOrdered By: Nakita Zarate on 08-05-2024 Cholesterol.total/Margaret sterol in HDL [Mass ratio] 1.77 {ratio} [facility] Serum creatinine measurement (mass/volume)Ordered By: Marco Hurtado on 08-05-2024 Creatinine [Mass/Vol] 1.03 mg/dL 0.70-1.20 [facility] Serum globulin measurementOr dered By: Nakita Zarate on 08-05-2024 Globulin (S) [Mass/Vol] 2.7 g/dL 2.2-4.2 [facility] Serum glucose measurement (m ass/volume)Ordered By: Marco Hurtado on 08-05-2024 Glucose [Mass/Vol] 150 mg/dL High 70-99 [facility] Serum immunoglobulin kappa l ight chains/immunoglobulin lambda light chains mass ratioOrdered By: Marco Hurtado on 08-05-2024 Immunoglobulin light chains.kappa/Immunoglob ulin light chains.lambda (S) [Mass ratio] 1.67 High 0.26-1.65 [facility] Comment on above: Performed at: [address] [id number] Director: Elías Bush PhD, Phone: [phone] Serum or plasma C reactive p rotein measurement (mass/volume)Ordered By: Marco Hurtado on 08-05-2024 CRP [Mass/Vol] mg/L 0.0-3.0 [facility] Serum or plasma IgA measurem ent (mass/volume)Ordered By: Marco Hurtado on 08-05-2024 IgA [Mass/Vol] 35 mg/dL Low 61-437 [facility] Comment on above: Result confirmed on concentration. Serum or plasma IgG measurem ent (mass/volume)Ordered By: Marco Hurtado on 08-05-2024 IgG [Mass/Vol] 393 mg/dL Low 603-1613 [facility] Serum or plasma alanine reynolds otransferase (ALT) measurementOrdered By: Nakita Zarate on 08-05-2024 ALT [Catalytic activity/Vol] 30 U/L <47 [facility] Serum or plasma albumin aleksandar urement (mass/volume)Ordered By: Nakita Zarate on 08-05-2024 Albumin [Mass/Vol] 4.5 g/dL 3.4-4.8 [facility] Serum or plasma albumin/glob ulin mass ratioOrdered By: Marco Hurtado on 08-05-2024 Albumin/Globulin [Mass ratio] 1.7 {ratio} 0.9-2.4 [facility] Serum or plasma alkaline kallie sphatase measurementOrdered By: Nakita Zarate on 08-05-2024 ALP [Catalytic activity/Vol] 90 U/L 40-129 [facility] Serum or plasma alpha 1 glob ulin measurement by electrophoresis (mass/volume)Ordered By: Marco Hurtado on 08-05-2024 Alpha 1 globulin Elph [Mass/Vol] 0.2 g/dL 0.0-0.4 [facility] Alpha 1 globulin Elph [Mass/Vol] 0.7 g/dL 0.4-1.0 [facility] Serum or plasma beta globuli n measurement by electrophoresis (mass/volume)Ordered By: Marco Hurtado on 08-05-2024 Beta globulin Elph [Mass/Vol] 1.2 g/dL 0.7-1.3 [facility] Serum or plasma calcium aleksandar urement (mass/volume)Ordered By: Marco Hurtado on 08-05-2024 Calcium [Mass/Vol] 9.7 mg/dL 7.6-11.0 [facility] Serum or plasma cholesterol in HDL measurement (mass/volume)Ordered By: Nakita Zarate on 08-05-2024 Cholesterol in HDL [Mass/Vol] 87 mg/dL >40 [facility] Comment on above: National Cholesterol Education Program (NCEP) guidelines:<40 mg/dL: Low HDL-cholesterol (major risk factor for CHD)>= 60 mg/dL: High HDL-cholesterol (negative risk factor for CHD)HDL-cholesterol is affected by a number of factors, e.g. smoking, exercise, hormones, sex and age. Serum or plasma cholesterol measurement (mass/volume)Ordered By: Nakita Zarate on 08-05-2024 Cholesterol [Mass/Vol] 153 mg/dL <201 [facility] Comment on above: Cholesterol level, D esirable <200 mg/dLBorderline high cholesterol 200-239 mg/dLHigh cholesterol >=240 mg/dLRecommendations of the NCEP Adult Treatment Panel for the following risk-cutoff thresholds for the [place] population. Serum or plasma ferritin bethany surement (mass/volume)Ordered By: Marco Hurtado on 08-05-2024 Ferritin [Mass/Vol] 721 ng/mL High 37-417 [facility] Serum or plasma gamma globul in measurement by electrophoresis (mass/volume)Ordered By: Marco Hurtado on 08-05-2024 Gamma globulin Elph [Mass/Vol] 0.4 g/dL 0.4-1.8 [facility] Serum or plasma immunoelectr ophoresis interpretation (nominal result)Ordered By: Marco Hurtado on 08-05-2024 Interpretation IEP [Interp] Comment: . [facility] Comment on above: RAMESH shows asymmetric al IgM suggestive of a monoclonal protein. Serum or plasma immunoglobul in kappa light chains measurement (mass/volume)Ordered By: Marco Hurtado on 08-05-2024 Immunoglobulin light chains.kappa [Mass/Vol] 13.7 mg/L 3.3-19.4 [facility] Serum or plasma iron saturat ion measurement (mass fraction)Ordered By: Marco Hurtado on 08-05-2024 Iron saturation [Mass fraction] 38.1 % 9-55 [facility] Comment on above: Previous reported re sult: 38.0 %Edited by: EDIN on 08/05/24:0953 AMENDED REPORT 08/05/24 0953 IRON SATURATION previously reported as: 38.0 % Serum or plasma protein aleksandar urement (mass/volume)Ordered By: Marco Hurtado on 08-05-2024 Protein [Mass/Vol] 6.8 g/dL 6.0-8.5 [facility] Serum or plasma urea nitroge n measurement (mass/volume)Ordered By: Marco Hurtado on 08-05-2024 Urea nitrogen [Mass/Vol] 34 mg/dL High 4-19 [facility] Sodium levelOrdered By: Philip Hurtado on 08-05-2024 Sodium [Moles/Vol] 137 mmol/L 133-145 [facility] Total proteinOrdered By: Vance Zarate on 08-05-2024 Protein [Mass/Vol] 7.1 g/dL 5.9-8.4 [facility] Triglycerides measurementOrd ered By: Nakita Zarate on 08-05-2024 Triglyceride [Mass/Vol] 91 mg/dL <199 [facility] Comment on above: The drugs N-Acetylcy steine and Metamizole may falsely depress this assay. Normal range: <150 mg/dLBorderline High: 150-199 mg/dLHigh: 200-499 mg/dLVery High: >500 mg/dL Vitamin B12on 08-05-2024 Cobalamin (Vitamin B12) [Mass/Vol] 653 pg/mL Normal 180-914 [facility] Comment on above: Performed By: #### L 504.2610, L100.0100, L501.1400, L500.4050 #### [facility] [address] [place], [address] Vitamin B12 ser/plasOrdered By: Marco Hurtado on 08-05-2024 Cobalamin (Vitamin B12) [Mass/Vol] 653 pg/mL 180-914 [facility] White blood cell (WBC) count Ordered By: Marco Hurtado on 08-05-2024 WBC (Bld) [#/Vol] 5.4 10*3/uL 4.4-11.0 [facility] Cardiology Visit Reporton Cardiology Visit Report [facility] [address] [place] [address] OFFICE VISIT Date of Service: 07/29/24 MR#: [id number] Acct: [id number] Name: VIDAL KAY Rep #: [id number] : 1945 Provider: MARCELLE Epperson Age/Sex: 79/M Location: [facility] Status: Signed HPI HPI History of Present Illness Details: Vidal Kay is a 79 -year-old white male who presents today for outpatient cardiovascular follow up, he has a hx of valvular heart disease with aortic valve stenosis and mitral valve regurgitation. Echocardiogram in 2021 demonstrated moderate . When he was seen in November of 2022 he noted he had more SOB and vague CP. Echocardiogram demonstrated worsening . Diagnostic heart cath demonstrated severe disease involving a long LAD lesion as well as a right coronary artery lesion and moderately severe aortic stenosis. He underwent a CABG x 2 with an SINGER to the LAD, SVG to the PL along with an AVR with a 23 mm Bautista magna bioprosthetic valve on 02/28/2023 at [facility] by Dr. Rodríguez. Postoperatively he did require an us guided thoracentesis. He does see Dr. Hurtado, he was diagnosed with lymphoma. He does follow with him routinely. From a cardiac standpoint, patient is doing well. He does not have any chest discomfort/heaviness/ti ghtness. His exercise tolerance is stable for his age. He does not have any worsening symptoms of shortness of breath. He denies any PND. He does not have any orthopnea. He does not have any symptoms of congestive heart failure. He does not have any palpitations that he is aware of. He does not have any lightheadedness or dizziness. He does not have any near-syncope or syncope. He does not have any lower extremity edema. He does not have any symptoms of claudication. Intake Vital Signs 04/16/23 13:04 02/20/24 11:20 07/29/24 07:30 Height 5 ft 6 in 5 ft 6 in 5 ft 6 in Weight: 160 lb BMI 25.8 BP 151/71 H Blood Pressure Location Lt brachial Position Sitting Respiration 18 Pulse 64 Pulse Source Monitor Pulse Oximetry (%) 99 Intake Visit Reasons: 1 Y FU 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 Is patient in pain?: No Allergies No Known Allergies Allergy (Verified 02/20/24 11:23) Medications ???Medication ???Instructions ???Recorded ???Confirmed ???Type pen needle, diabetic 32 gauge x #30 ea 06/02/18 05/22/24 Rx 5/32 (Comfort EZ Pen [place]) ascorbic acid (vitamin C) 1,000 mg 1 g PO DAILY 05/31/21 05/22/24 H istory tablet glucosamine-chondroitin 500 mg-400 1 cap PO DAILY 05/31/21 05/22/24 History mg capsule multivitamin 1 tab PO DAILY 05/31/21 05/22/24 H istory ramipril 5 mg capsule 5 mg PO DAILY 05/31/21 07/29/24 Hi story dapagliflozin propanediol 10 mg 10 mg PO DAILY 06/15/21 07/29/24 H istory tablet (Farxiga) aspirin 81 mg tablet,delayed 81 mg PO DAILY 01/24/23 07/29/24 H istory release (Adult Aspirin Regimen) rosuvastatin 40 mg tablet 40 mg PO DAILY 04/16/23 05/22/24 H istory acetaminophen 500 mg capsule 500 mg PO Q6H PRN pain 07/02/23 History ferrous sulfate 325 mg (65 mg 325 mg PO DAILY 07/02/23 05/22/24 History iron) tablet insulin glargine 100 unit/mL (3 12 unit subcut QHS 07/15/23 History mL) subcutaneous pen (Lantus Solostar U-100 Insulin) insulin lispro 100 unit/mL 4 unit subcut TID 07/15/23 5 History subcutaneous pen (Humalog KwikPen (U-100) Insulin) mesalamine 1.2 gram tablet,delayed 1.2 g PO BID #180 tabs 12/02/23 05/22/24 Rx release metoprolol tartrate 25 mg tablet 25 mg PO BID #180 tabs 05/18/24 Rx amoxicillin 500 mg tablet 2,000 mg (4 x 500 mg) PO ONCE #4 0 07/29/24 07/29/24 Rx tabs Ejection fraction %: 60 Have you fallen in the past year?: No Nurse's Note: Patient does not know what she is taking. does not wish to carry a medication list. [facility] Medical History Bilateral carotid artery disease BPH (benign prostatic hyperplasia) Anemia Wears glasses Cancer Low iron History of ulceration Former smoker History of echocardiogram Cardiology follow-up encounter Non-rheumatic mitral regurgitation Nonrheumatic aortic (valve) stenosis Mixed hyperlipidemia Essential hypertension Stomach ulcer Crohn disease Ulcerative colitis Heart murmur High cholesterol Diabetes type 2, controlled Bone fracture Back problem Surgical History History of cataract surgery History of colonoscopy ( 04/2023) History of cardiac catheterization History of tonsillectomy S/P aortic valve replacement S/P CABG x 2 History of carpal tunnel surgery [facility] VIDAL KAY ([id number]) 1945 M Date Time Provider Department 06/03/24 10:40 AM FELIX BILL INTMWS During your visit today, we recorded the following information about you: Temperature Pulse Blood pressure Weight 98.3 degrees 60/minute 116/50 69.2 kg Felix Bill MD 06/28/2024 12:21 PM Addendum This note was created using Zuldiriter. Subjective Vidal Kay is a 79 year old male. He was doing well. 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 He was on surveillance by Dr. Marco Yousif. Ulcerative colitis was controlled on mesalamine. Diabetes was controlled. Proteinuria increased. Review of Systems Constitutional: Negative for fatigue and fever. Respiratory: Negative for shortness of breath. Cardiovascular: Negative for chest pain and leg swelling. Genitourinary: Negative for difficulty urinating, dysuria and hematuria. 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) Other Proteinuria Hypoalbuminemia Coronary Artery Disease Involving [place] Coronary Artery of [place] Heart Without Angina Pectoris Waldenstrom Macroglobulinemia Aortic Valve Replaced S/P Cabg X 2 Social History Tobacco Use Smoking status: Former Types: Pipe, Cigarettes Smokeless tobacco: Current Types: Chew Tobacco comments: 20 years cigs till 1979, pipe till Vaping Use Vaping status: Never Used Substance Use Topics Alcohol use: Not Currently Drug use: Never Current Outpatient Medications Medication Sig Insulin [place], Disposable, (BD ULTRA-FINE VY PEN NEEDLE) 32 gauge x 5/32 USES 4 per day with insulin injections. FARXIGA 10 mg tablet TAKE 1 TABLET DAILY Blood-Glucose Sensor (UmooveCOM G7 SENSOR) rick CHANGE sensor every 10 days. USE FOR CONTINUOUS GLUCOSE MONITORING. INSULIN USE E11.9 flaxseed oil (OMEGA 3 ORAL) Take 1 capsule by mouth once daily. LECITHIN ORAL Take 1 tablet by mouth once daily. ramipril (ALTACE) 5 mg capsule Take 1 capsule by mouth once daily. insulin glargine (LANTUS SOLOSTAR U-100 INSULIN) 100 unit/mL (3 mL) Inject 12 Units subcutaneously daily at bedtime. acetaminophen (TYLENOL) 500 mg tablet Take 500 mg by mouth two times a day as needed for pain. aspirin, enteric coated (ASPIRIN, ENTERIC COATED) 81 mg EC tablet Take 81 mg by mouth once daily. metoprolol tartrate, short acting, (LOPRESSOR) 25 mg tablet Take 25 mg by mouth two times a day. rosuvastatin (CRESTOR) 40 mg tablet Take 40 mg by mouth once daily. insulin lispro (HUMALOG KWIKPEN INSULIN) 100 unit/mL Inject 4 units with meals PLUS sliding scale #1 (1 unit for every 50 over 150 PRE MEAL blood sugar) ~20 units daily OTC PRODUCT Shaklee Iron: Take two tablets by mouth once daily. Blood-Glucose Meter,Continuous (DEXCOM G7 HOME HEALTH NURSE LICENSED PRACTICAL) [facility] Dispense one lifter/driver USE FOR CONTINUOUS GLUCOSE MONITORING. INSULIN USE E11.9 lancets (ONE TOUCH DELICA) 33 gauge Test blood sugar(s) 4 times daily. Dx: Other DM Code E11.49 Insulin: Yes Mesalamine (LIALDA) 1.2 gram EC tablet Take 2 tablets by mouth once daily. Per Dr. Aguilar Friend. VITAMIN C 1,000 MG TAB Take 1,000 mg by mouth once daily. GLUCOSAMINE CHONDROITIN MAXSTR 500 MG-400 MG CAP Take 1 capsule by mouth once daily. MULTIVITAMIN TAB Take 1 tablet by mouth once daily. No current facility-administered medications for this visit. Objective BP 116/50 (BP Site: Left Arm, BP Position: Sitting, BP Cuff Size: Large Adult) Pulse 60 Temp 36.8 ?C (98.3 ?F) (Temporal) Wt 69.2 kg (152 lb 8.9 oz) BMI 24.62 kg/m? Physical Exam Constitutional: Appearance: He is not ill-appearing. Cardiovascular: Rate and Rhythm: Normal rate and regular rhythm. Heart sounds: No murmur heard. Pulmonary: Breath sounds: Normal breath sounds. Musculoskeletal: Right lower leg: No edema. Left lower leg: No edema. Neurological: Mental Status: He is alert. Latest Ref Rng 05/28/2024 Glucose 74 - 99 mg/dL 129 (H) BUN 9 - 24 mg/dL 34 (H) Creatinine 0.73 - 1.22 mg/dL 1.04 Sodium 136 - 144 mmol/L 138 Potassium 3.7 - 5.1 mmol/L 4.7 Chloride 98 - 107 mmol/L 103 CO2 22 - 30 mmol/L 25 Anion Gap 8 - 15 mmol/L 10 Calcium 8.5 - 10.2 mg/dL 9.9 eGFR >=60 mL/min/1.73m? 73 Cholesterol, Total <200 mg/dL 141 Triglyceride <150 mg/dL 47 HDL Cholesterol >39 mg/dL 90 Non HDL Cholesterol <130 mg/dL 51 Fasting Time hrs 11 VLDL Cholesterol <30 mg/dL 9 TC:HDL Ratio <5.10 1.57 LDL Cholesterol <100 mg/dL 42 LDL:HDL Ratio <2.54 0.47 Creatinine, Ur Random (UCRR) 20.0 - 300.0 mg/dL 48.3 Albumin, Urine Random mg/L (more content not included)... Normal [facility] Urinalysis complete panel (U )on 06-03-2024 Bacteria LM.HPF (Urine sed) [#/Area] Negative Normal Negative [facility] Comment on above: Order Comment: Speci men Type: URINE SPECIMENOrdering Facility: [facility] Address: [address] [place] [address] Performed By: #### 2 4356-8 ####[facility]CL[facility] [id number] [place] [address] [place] Bilirubin Ql (U) Negative Normal Negative [facility] Comment on above: Order Comment: Speci men Type: URINE SPECIMENOrdering Facility: [facility] [place] Address: [address] [place] [address] Performed By: #### 2 4356-8 ####[facility] [id number] [place] [address] [place] Clarity (Unsp spec) Clear Normal Clear [facility] Comment on above: Order Comment: Speci men Type: URINE SPECIMENOrdering Facility: [facility] [place] Address: [address] [place] [address] Performed By: #### 2 4356-8 ####[facility] [id number] [place] [address] [place] Color (U) Yellow Normal Yellow [facility] Comment on above: Order Comment: Speci men Type: URINE SPECIMENOrdering Facility: [facility] [place] Address: [address] [place] [address] Performed By: #### 2 4356-8 ####[facility] [id number] [place] [address] [place] Epithelial cells LM.HPF (Urine sed) [#/Area] None Seen Normal [facility] Comment on above: Order Comment: Speci men Type: URINE SPECIMENOrdering Facility: [facility] [place] Address: [address] [place] [address] Performed By: #### 2 4356-8 ####[facility] [id number] [place] [address] [place] Glucose Test strip (U) [Mass/Vol] 1+ Abnormal Negative [facility] Comment on above: Order Comment: Speci men Type: URINE SPECIMENOrdering Facility: [facility] [place] Address: [address] [place] [address] Performed By: #### 2 4356-8 ####[facility] [id number] [place] [address] [place] Hemoglobin Ql (U) Negative Normal Negative [facility] Comment on above: Order Comment: Speci men Type: URINE SPECIMENOrdering Facility: [facility] [place] Address: [address] [place] [address] Performed By: #### 2 4356-8 ####[facility] [id number] [place] [address] [place] Hyaline casts (Urine sed) [#/Area] 0 /[LPF] Normal 0 /LPF [facility] Comment on above: Order Comment: Speci men Type: URINE SPECIMENOrdering Facility: [facility] [place] Address: [address] [place] [address] Performed By: #### 2 4356-8 ####[facility] [id number] [place] [address] [place] Ketones Ql (U) Negative Normal Negative [facility] Comment on above: Order Comment: Speci men Type: URINE SPECIMENOrdering Facility: [facility] [place] Address: [address] [place] [address] Performed By: #### 2 4356-8 ####[facility] [id number] [place] [address] [place] Leukocyte esterase Test strip Ql (U) Negative Normal Negative [facility] Comment on above: Order Comment: Speci men Type: URINE SPECIMENOrdering Facility: [facility] [place] Address: [address] [place] [address] Performed By: #### 2 4356-8 ####[facility] [id number] [place] [address] [place] Nitrite Ql (U) Negative Normal Negative [facility] Comment on above: Order Comment: Speci men Type: URINE SPECIMENOrdering Facility: [facility] [place] Address: [address] [place] [address] Performed By: #### 2 4356-8 ####[facility] [id number] [place] [address] [place] pH (U) 5.5 [pH] Normal <8.5 [facility] Comment on above: Order Comment: Speci men Type: URINE SPECIMENOrdering Facility: [facility] [place] Address: [address] [place] [address] Performed By: #### 2 4356-8 ####[facility] [id number] [place] [address] [place] Protein (U) [Mass/Vol] Trace Abnormal Negative [facility] Comment on above: Order Comment: Speci men Type: URINE SPECIMENOrdering Facility: [facility] [place] Address: [address] [place] [address] Performed By: #### 2 4356-8 ####[facility] [id number] [place] [address] [place] RBC LM.HPF (Urine sed) [#/Area] 0-2 /HPF Normal 0-2 /HPF [facility] Comment on above: Order Comment: Speci men Type: URINE SPECIMENOrdering Facility: [facility] [place] Address: [address] [place] [address] Performed By: #### 2 4356-8 ####[facility]IA [id number] [place] [address] [place] Specific gravity (U) [Rel density] 1.032 High 1.005-1.03 0 [facility] Comment on above: Order Comment: Speci men Type: URINE SPECIMENOrdering Facility: [facility] [place] Address: [address] [place] [address] Performed By: #### 2 4356-8 ####[facility]IA [id number] [place] [address] [place] Urobilinogen Ql (U) 0.2 EU/dL Normal 0.2-1.0 EU/dL [facility] Comment on above: Order Comment: Speci men Type: URINE SPECIMENOrdering Facility: [facility] [place] Address: [address] [place] [address] Performed By: #### 2 4356-8 ####[facility] [id number] [place] [address] [place] WBC LM.HPF (Urine sed) [#/Area] 0-5 /HPF Normal 0-5 /HPF [facility] Comment on above: Order Comment: Speci men Type: URINE SPECIMENOrdering Facility: [facility] [place] Address: [address] [place] [address] Performed By: #### 2 4356-8 ####[facility] [id number] [place] [address] [place] ALBUMIN/CREATININE RATIO, UR INEon 05-28-2024 Albumin DL <= 20 mg/L (U) [Mass/Vol] 263.9 mg/L Normal [facility] Comment on above: Order Comment: Speci men Type: URINE SPECIMENOrdering Facility: [facility] [place] Address: [address] [place] [address] Performed By: #### U ACR ####[facility] [id number] [place] [address] [place] Albumin/Creatinine (U) [Mass ratio] 546 mg/g High <30 [facility] Comment on above: Order Comment: Speci men Type: URINE SPECIMENOrdering Facility: [facility] [place] Address: [address] [place] [address] Result Comment: Adul t Male and Female Nephrotic Criteria: <30 mg/g is considered normal to mildly increased 30-300 mg/g is considered moderately increased >300 mg/g is considered severely increased KDIGO. (2013). KDIGO 2012 Clinical Practice Guideline for the Evaluation and Management of Chronic Kidney Disease. Official Journal of the International Society of Nephrology, 3(1), 1-150. Performed By: #### U ACR ####[facility] [id number] [place] [address] [place] Creatinine (U) [Mass/Vol] 48.3 mg/dL Normal 20.0-300.0 [facility] Comment on above: Order Comment: Speci men Type: URINE SPECIMENOrdering Facility: [facility] [place] Address: [address] [place] [address] Performed By: #### U ACR ####[facility] [id number] [place] [address] [place] Basic metabolic 2000 panelon 05-28-2024 Anion gap [Moles/Vol] 10 mmol/L Normal 8-15 [facility] Comment on above: Order Comment: Speci men Type: BLOOD SPECIMENOrdering Facility: [facility] [facility] [place] Address: [address] [place] [address] Performed By: #### 2 4321-2, 60466-3 ####[facility] LABCLIA [id number] [place] [address] [place] Calcium [Mass/Vol] 9.9 mg/dL Normal 8.5-10.[address] [facility] Comment on above: Order Comment: Speci men Type: BLOOD SPECIMENOrdering Facility: [facility] [place] Address: [address] [place] [address] Performed By: #### 2 4321-2, 11219-0 ####[facility] LABCLIA [id number] [facility] [address] [place] Chloride [Moles/Vol] 103 mmol/L Normal 98-107 [facility] Comment on above: Order Comment: Speci men Type: BLOOD SPECIMENOrdering Facility: [facility] [place] Address: [address] [place] [address] Performed By: #### 2 432-2, 37844-8 ####[facility] LABCLIA [id number] [place] [address] [place] CO2 [Moles/Vol] 25 mmol/L Normal 22-30 [facility] Comment on above: Order Comment: Speci men Type: BLOOD SPECIMENOrdering Facility: [facility] [place] Address: [address] [place] [address] Performed By: #### 2 432-2, 06865-9 ####[facility] LABCLIA [id number] [place] [address] [place] Creatinine [Mass/Vol] 1.04 mg/dL Normal 0.73-1.22 [facility] Comment on above: Order Comment: Speci men Type: BLOOD SPECIMENOrdering Facility: [facility] [place] Address: [address] [place] [address] Performed By: #### 2 432-2, 46910-6 ####[facility] LABCLIA [id number] [place] [id number] [place] Creatinine and Glomerular filtration rate.predicted panel (S/P/Bld) 73 mL/min/1.73m??? Normal >=60 [facility] Comment on above: Order Comment: Gabino michaels Type: BLOOD SPECIMENOrdering Facility: [facility] [place] Address: [address] [place] [address] Result Comment: [place] mated Glomerular Filtration Rate (eGFR) is calculated using the 2020 CKD-EPI creatinine equation. This equation utilizes serum creatinine, sex, and age as parameters. The creatinine assay has traceable calibration to isotope dilution-mass spectrometry. Refer to KDIGO guidelines for clinical interpretation. In patients with unstable renal function, e.g. those with acute kidney injury, the eGFR may not accurately reflect actual GFR. Performed By: #### 2 4321-2, 22428-6 ####[facility] LABIA [id number] [place] [address] [place] Glucose [Mass/Vol] 129 mg/dL High 74-[address] [facility] Comment on above: Order Comment: Gabino michaels Type: BLOOD SPECIMENOrdering Facility: [facility] [place] Address: [address] [place] [address] Result Comment: The [place] Diabetes Association (ADA) provides guidance for cutoff values for fasting glucose and random glucose. The ADA defines fasting as no caloric intake for at least 8 hours. Fasting plasma glucose results between 100 to 125 mg/dL indicate increased risk for diabetes (prediabetes). Fasting plasma glucose results greater than or equal to 126 mg/dL meet the criteria for diagnosis of diabetes. In the absence of unequivocal hyperglycemia, results should be confirmed by repeat testing. In a patient with classic symptoms of hyperglycemia or hyperglycemic crisis, random plasma glucose results greater than or equal to 200 mg/dL meet the criteria for diagnosis of diabetes. Reference: Standards of Medical Care in Diabetes 2016, [place] Diabetes Association. Diabetes Care. 2016.39(Suppl 1). Performed By: #### 2 4321-2, 24736-9 ####[facility] LABIA [id number] [place] [address] [place] Potassium [Moles/Vol] 4.7 mmol/L Normal 3.7-5.1 [facility] Comment on above: Order Comment: Gabino michaels Type: BLOOD SPECIMENOrdering Facility: [facility] [place] Address: [address] [place] [address] Performed By: #### 2 4321-2, 72052-6 ####[facility] LABIA [id number] [place] [address] [place] Sodium [Moles/Vol] 138 mmol/L Normal 136-[address] [facility] Comment on above: Order Comment: Speci men Type: BLOOD SPECIMENOrdering Facility: [facility] [place] Address: [address] [place] [address] Performed By: #### 2 4321-2, 59391-5 ####[facility] LABIA [id number] [place] [address] [place] Urea nitrogen [Mass/Vol] 34 mg/dL High 9-24 [facility] Comment on above: Order Comment: Speci men Type: BLOOD SPECIMENOrdering Facility: [facility] [place] Address: [address] [place] [address] Performed By: #### 2 4321-2, 48840-2 ####[facility] [id number] [place] [address] [place] HbA1c (Bld)on 05-28-2024 Average glucose Estimated from glycated hemoglobin (Bld) [Mass/Vol] 148 mg/dL Normal [facility] Comment on above: Order Comment: Speci men Type: BLOOD SPECIMENOrdering Facility: [facility] [place] Address: [address] [place] [address] Result Comment: eAG: (Estimated average glucose) is a calculated value from HgbA1c and is traffic workforce representative of the average blood glucose level in the last 2-3 month period. Performed By: #### 5 5454-3 ####[facility] [id number] [place] [address] [place] HbA1c (Bld) [Mass fraction] 6.8 % High 4.3-5.6 [facility] Comment on above: Order Comment: Speci men Type: BLOOD SPECIMENOrdering Facility: [facility] [place] Address: [address] [place] [address] Result Comment: [place] Diabetes Association guidelines indicate that patients with HgbA1c in the range 5.7-6.4% are at increased risk for development of diabetes, and intervention by lifestyle modification may be beneficial. HgbA1c greater or equal to 6.5% is considered diagnostic of diabetes. Performed By: #### 5 5454-3 ####[facility] LABCLIA [id number] [place] [address] [place] Lipid 1996 panelon 5 Cholesterol [Mass/Vol] 141 mg/dL Normal <200 [facility] Comment on above: Order Comment: Gabino michaels Type: BLOOD SPECIMENOrdering Facility: [facility] [place] Address: [address] [place] [address] Result Comment: <200 mg/dL, Desirable 200-239 mg/dL, Borderline high >239 mg/dL, High Performed By: #### 2 4321-2, 06272-4 ####[facility] LABCLIA [id number] [address] [place] Cholesterol in HDL [Mass/Vol] 90 mg/dL Normal >39 [facility] Comment on above: Order Comment: Gabino michaels Type: BLOOD SPECIMENOrdering Facility: [facility] [place] Address: [address] [place] [address] Result Comment: 40-5 9 mg/dL, Acceptable >59 mg/dL, High: Negative risk factor for coronary heart disease <40 mg/dL, Low: Positive risk factor for coronary heart disease Performed By: #### 2 4321-2, 21426-6 ####[facility] LABCLIA [id number] [address] [place] Cholesterol in LDL [Mass/Vol] 42 mg/dL Normal <100 [facility] Comment on above: Order Comment: Gabino michaels Type: BLOOD SPECIMENOrdering Facility: [facility] [place] Address: [address] [place] [address] Result Comment: <100 mg/dL, Optimal 100-129 mg/dL, Near optimal/above optimal 130-159 mg/dL, Borderline high 160-189 mg/dL, High >189 mg/dL, Very high Secondary prevention optimal LDL Cholesterol levels are recommended to be < 70 mg/dL Performed By: #### 2 4321-2, 18341-9 ####[facility] LABCLIA [id number] [place] [address] [place] Cholesterol in LDL/Cholesterol in HDL [Mass ratio] 0.47 {ratio} Normal <2.54 [facility] Comment on above: Order Comment: Speci men Type: BLOOD SPECIMENOrdering Facility: [facility] [place] Address: [address] [place] [address] Result Comment: Refe rence: 1. National Cholesterol Education Program ATP III Guideline At-A-Glance Quick Desk Reference: National Heart, Lung, and Blood [place]. National Institutes of Health. 2001: NIH Publication No. 01-3305. 2. An International Atherosclerosis Society position paper: global recommendations for the management of dyslipidemia: executive summary, Atherosclerosis. 2014: 232(2):410-413. Performed By: #### 2 432-2, 80661-8 ####[facility] LABCLIA [id number] [place] [address] [place] Cholesterol in VLDL [Mass/Vol] 9 mg/dL Normal <30 [facility] Comment on above: Order Comment: Gabino michaels Type: BLOOD SPECIMENOrdering Facility: [facility] [place] Address: [address] [place] [address] Performed By: #### 2 432-2, 77400-0 ####[facility] LABCLIA [id number] [place] [address] [place] Cholesterol non HDL [Mass/Vol] 51 mg/dL Normal <130 [facility] Comment on above: Order Comment: Gabino michaels Type: BLOOD SPECIMENOrdering Facility: [facility] [place] Address: [address] [place] [address] Result Comment: <130 mg/dL, Optimal 130-159 mg/dL, Near optimal/above optimal 160-189 mg/dL, Borderline high 190-219 mg/dL, High >219 mg/dL, Very high Secondary prevention optimal non HDL Cholesterol levels are recommended to be <100 mg/dL Performed By: #### 2 4321-2, 39186-9 ####[facility] LABCLIA [id number] [address] [address] [place] Cholesterol.total/Margaret sterol in HDL [Mass ratio] 1.57 {ratio} Normal <5.10 [facility] Comment on above: Order Comment: Speci men Type: BLOOD SPECIMENOrdering Facility: [facility] [place] Address: [address] [place] [address] Performed By: #### 2 4321-2, 77090-5 ####[facility] LABCLIA [id number] [address] OF [facility] FASTING TIME 11 hrs Normal [facility] Comment on above: Order Comment: Nicolei men Type: BLOOD SPECIMENOrdering Facility: [facility] [place] Address: [address] [place] [address] Performed By: #### 2 4321-2, 96657-2 ####[facility] LABCLIA [id number] [address] [place] Triglyceride [Mass/Vol] 47 mg/dL Normal <150 [facility] Comment on above: Order Comment: Nicolei men Type: BLOOD SPECIMENOrdering Facility: [facility] [place] Address: [address] [place] [address] Result Comment: <150 mg/dL, Normal 150-199 mg/dL, Borderline high 200-499 mg/dL, High >499 mg/dL, Very high Performed By: #### 2 4321-2, 65898-9 ####[facility] LABCLIA [id number] [address] [address] [place] Gastroenterology Visit Repor ton 05-22-2024 Gastroenterology Visit Report [facility] [address] [place] [address] OFFICE VISIT Date of Service: 05/22/24 MR#: [id number] Acct: [id number] Name: VIDAL KAY Rep #: [id number] : 1945 Provider: Douglas Jimenez DO Age/Sex: 79/M Location: [facility] Status: Signed Intake Vital Signs 10/17/23 12:35 02/20/24 11:20 Height 5 ft 6 in 5 ft 6 in Intake Visit Reasons: 6 M FU Allergies No Known Allergies Allergy (Verified 02/20/24 11:23) Medications ???Medication ???Instructions ???Recorded ???Confirmed ???Type pen needle, diabetic 32 gauge x #30 ea 06/02/18 05/22/24 Rx (Comfort EZ Pen [place]) ascorbic acid (vitamin C) 1,000 mg 1 g PO DAILY 05/31/21 05/22/24 History tablet glucosamine-chondroitin 500 mg-400 1 cap PO DAILY 05/31/21 05/22/24 History mg capsule multivitamin 1 tab PO DAILY 05/31/21 05/22/24 History ramipril 5 mg capsule 5 mg PO DAILY 05/31/21 05/22/24 History dapagliflozin propanediol 10 mg 10 mg PO DAILY 06/15/21 05/22/24 History tablet (Farxiga) aspirin 81 mg tablet,delayed 81 mg PO DAILY 01/24/23 05/22/24 History release (Adult Aspirin Regimen) rosuvastatin 40 mg tablet 40 mg PO DAILY 04/16/23 05/22/24 History acetaminophen 500 mg capsule 500 mg PO Q6H PRN pain 07/02/23 05/22/24 History ferrous sulfate 325 mg (65 mg 325 mg PO DAILY 07/02/23 05/22/24 History iron) tablet insulin glargine 100 unit/mL (3 12 unit subcut QHS 07/15/23 05/22/24 History mL) subcutaneous pen (Lantus Solostar U-100 Insulin) insulin lispro 100 unit/mL 4 unit subcut TID 07/15/23 05/22/24 History subcutaneous pen (Humalog KwikPen (U-100) Insulin) mesalamine 1.2 gram tablet,delayed 1.2 g PO BID #180 tabs 12/02/23 05/22/24 Rx release amoxicillin 500 mg tablet 2,000 mg (4 x 500 mg) PO ONCE #4 01/14/24 05/22/24 Rx tabs metoprolol tartrate 25 mg tablet 25 mg PO BID #180 tabs 05/18/24 05/22/24 Rx Have you fallen in the past year?: No PFSH Medical History Bilateral carotid artery disease BPH (benign prostatic hyperplasia) Anemia Wears glasses Cancer Low iron History of ulceration Former smoker History of echocardiogram Cardiology follow-up encounter Non-rheumatic mitral regurgitation Nonrheumatic aortic (valve) stenosis Mixed hyperlipidemia Essential hypertension Stomach ulcer Crohn disease Ulcerative colitis Heart murmur High cholesterol Diabetes type 2, controlled Bone fracture Back problem Surgical History History of cataract surgery History of colonoscopy ( 04/2023) History of cardiac catheterization History of tonsillectomy S/P aortic valve replacement S/P CABG x 2 History of carpal tunnel surgery Family History Mother Diabetes Liver disease CAD (coronary artery disease) Father Diabetes CAD (coronary artery disease) History of coronary artery bypass surgery Sister Breast cancer Daughter Breast cancer Social History Smoking Status: Former smoker Tobacco: How many years used: 20 Smokeless tobacco user: snuff how long ago did patient quit smokin+ years second hand exposure: No alcohol intake: never substance use type: does not use caffeine: Yes Type: coffee Number of servings: 5 HPI HPI Details: VIDAL KAY, is a 79 M who presents to the office today for follow up. 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 ? Colonoscopy 2.10.20 6mm cecal polyp, low-grade dysplasia; inflammation with altered vasculature, erosion, ulceration in sigmoid through rectum *BGI established 05.02.21 recommending transition to oral mesalamine. OV 08.08.22 continue mesalamine PO ? Biochemical 08.08.22 CBC, ESR, CMP, CRP not performed ? Stool calprotectin, lactoferrin not performed Colonoscopy 05.06.23 9mm cecal TA polyp; Marquez Score 1. 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 OV11.15.23 pt reports that he is feeling well overall and denies GI symptoms of concern at this time. Pt reports that this appointment is because he had a + fecal occult test a few months 09.05.23. Pt reports regular BM; denies blood in the stool. OV 1 (more content not included)... [facility]ENWSTR ) VIDAL KAY ([id number]) 1945 M Date Time Provider Department 03/25/24 2:45 PM LISE RICHTER ENWSTR During your visit today, we recorded the following information about you: Pulse Respiration Blood pressure Weight 64/minute 18/minute 138/52 72 kg Height 1.676 m Lise Richter, [employer] RE[facility] 03/25/2024 3:12 PM Signed OFFICE VISIT PROGRESS NOTE CC Vidal Kay is a 79 year old who presents today for blood sugar review. HPI Diagnosed with diabetes mellitus type II, ~ ~1991 Last endocrine OV 07/03/2023 Some elements copied from my note 07/03/2023 which have been updated where appropriate, and all reflect current medical decision making from date of this visit. HPI 03/25/2024 Sts is doing well Is exercising regularly Using meds as per below Using DEXCOM CGM Patient is compliant with CGM use and is benefiting from sensor use. Has had 2 sensors fail CURRENT DM MEDS FARXIGA 10 mg 1 tab daily LANTUS 12 units daily HUMALOG 4-4-4 plus S#1 SMBG Type of Monitor: Other DEXCOM G7 Patient is compliant with CGM use and is benefiting from sensor use. Frequency of Monitorin times a day Patient is compliant with CGM use and is benefiting from sensor use. 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, gazelle 15 minutes, weights//curls/shoulder s DM REVIEW OF SYSTEMS Last Eye Exam : yearly Last Podiatry Exam: Cardiorespiratory: negative, denies chest pain, pressure Claudication: no Dyslipidemia: No High Blood Pressure: No CURRENT LABS Recent Labs 03/09/21 0820 06/09/21 0740 02/27/22 0813 06/08/22 0809 10/08/22 1533 10/12/22 1211 12/11/22 0847 12/18/22 1151 01/22/23 0801 05/23/23 1259 07/03/23 0959 ALT -- < > -- -- < > -- 16 -- 12 27 -- AST -- < > -- -- < > -- 15 -- 13* 34 -- UCRR 154.7 -- 96.7 -- -- -- 57.1 -- -- -- -- UALBR 241.8 -- 95.1 -- -- -- 129.7 -- -- -- -- UALBCR 156* -- 98* -- -- -- 227* -- -- -- -- TPROT -- < > -- -- < > -- 8.6* 8.6* 7.7 8.5* 8.8* -- ALB -- < > -- -- < > -- 3.6* -- 3.3* 3.5* -- CA 9.9 < > -- -- < > -- 9.7 -- 8.9 9.8 -- TBILI -- < > -- -- < > -- 0.2 -- 0.2 0.3 -- ALKPHOS -- < > -- -- < > -- 109 -- 100 137* -- GLUC 89 < > -- -- < > -- 109* -- 119* 212* -- BUN 18 < > -- -- < > -- 21 -- 29* 32* -- CREAT 0.81 < > -- -- < > -- 0.97 -- 0.77 0.79 -- NA 139 < > -- -- < > -- 135* -- 135* 134* -- K 4.2 < > -- -- < > -- 5.0 -- 4.6 4.1 -- CHLOR 103 < > -- -- < > -- 99 -- 101 95* -- CO2 27 < > -- -- < > -- 24 -- 25 27 -- ANION 9 < > -- -- < > -- 12 -- 9 12 -- EGFROTH >60 < > -- -- < > -- 80 -- 92 91 -- HBA1C 8.4* < > -- 7.3* -- -- 8.0* -- -- -- 7.3* B12 -- -- -- -- -- 734 -- -- -- 765 -- < > = values in this interval not displayed. Recent Labs 03/09/21 0820 06/09/21 0740 12/07/21 0813 02/27/22 0805 06/08/22 0809 10/12/22 1211 12/11/22 0847 05/23/23 1259 07/03/23 0959 TG 67 -- 41 -- -- -- 47 -- -- CHOL 198 -- 161 -- -- -- 157 -- -- HDL 70 -- 74 -- -- -- 66 -- -- VLDL 13 -- 8 -- -- -- 9 -- -- LDL 115* -- 79 -- -- -- 82 -- -- FASTTIME 12 -- 13 -- -- -- 12 -- -- TCHDL 2.83 -- 2.18 -- -- -- 2.38 -- -- LDLHDL 1.64 -- 1.07 -- -- -- 1.24 -- -- NONHDL 128 -- 87 -- -- -- 91 -- -- HBA1C 8.4* < > 7.3* 7.0* 7.3* -- 8.0* -- 7.3* HBA0 194 < > 163 154 163 -- 183 -- -- B12 -- -- -- -- -- 734 -- 765 -- < > = values in this interval not displayed. 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 Hurtado, [facility] On[facility] PAST SURGICAL HISTORY Procedure Laterality Date CABG (2) VEIN GRAFTS AND ARTERIAL GRAFT(S 02/28/2023 COLONOSCOPY FLX DX W/COLLJ SPEC WHEN PFRMD 03/11/1995 Colonoscopy COLONOSCOPY FLX DX W/COLLJ SPEC WHEN PFRMD 07/12/2008 Colonoscopy COLONOSCOPY FLX DX W/COLLJ SPEC WHEN PFRMD 05/16/2015 Colonoscopy COLONOSCOPY FLX DX W/COLLJ SPEC WHEN PFRMD 06/08/2019 Colonoscopy COLONOSCOPY W/BIOPSY SINGLE/MULTIPLE 02/28/2006 LEFT HEA (more content not included)... [facility] Tele[facility] (ENWSTR) VIDAL KAY ([id number]) 1945 M Date Time Provider Department 03/25/24 LISE RICHTER ENANGELINATR During your visit today, we recorded the following information about you: Mario Alberto Echavarria RN 03/25/2024 3:23 PM Signed Updated OV clinical chart notes faxed to [facility] to continue Pt's existing order for Dexcom G7 sensors. Fax confirmation received. Mario Alberto Echavarria RN March 25, 2024 3:23 PM Allergies As of Date: 03/25/2024 (No Known Allergies) Date Reviewed: 03/25/2024 Reviewed by: Mario Alberto Echavarria RN - Fully Assessed Reason for Visit: Updated OV Notes for CGM [Other] Prescriptions as of 03/25/2024 - Blood-Glucose Sensor (DEXCOM G7 SENSOR) rick CHANGE sensor every 10 days. USE FOR CONTINUOUS GLUCOSE MONITORING. INSULIN USE E11.9 - flaxseed oil (OMEGA 3 ORAL) Take 1 capsule by mouth once daily. - LECITHIN ORAL Take 1 tablet by mouth once daily. - ramipril (ALTACE) 5 mg capsule Take 1 capsule by mouth once daily. - insulin glargine (LANTUS SOLOSTAR U-100 INSULIN) 100 unit/mL (3 mL) Inject 12 Units subcutaneously daily at bedtime. - dapagliflozin propanediol (FARXIGA) 10 mg tablet Take 1 tablet by mouth once daily. - Insulin [place], Disposable, (BD ULTRA-FINE VY PEN NEEDLE) 32 gauge x 5/32 USES 4 per day with insulin injections. - acetaminophen (TYLENOL) 500 mg tablet Take 500 mg by mouth two times a day as needed for pain. - aspirin, enteric coated (ASPIRIN, ENTERIC COATED) 81 mg EC tablet Take 81 mg by mouth once daily. - metoprolol tartrate, short acting, (LOPRESSOR) 25 mg tablet Take 25 mg by mouth two times a day. - rosuvastatin (CRESTOR) 40 mg tablet Take 40 mg by mouth once daily. - insulin lispro (HUMALOG KWIKPEN INSULIN) 100 unit/mL Inject 4 units with meals PLUS sliding scale #1 (1 unit for every 50 over 150 PRE MEAL blood sugar) ~20 units daily - OTC PRODUCT [place] Iron: Take two tablets by mouth once daily. - Blood-Glucose Meter,Continuous (DEXCOM G7 HOME HEALTH NURSE LICENSED PRACTICAL) [facility] Dispense one lifter/driver USE FOR CONTINUOUS GLUCOSE MONITORING. INSULIN USE E11.9 - lancets (ONE TOUCH DELICA) 33 gauge Test blood sugar(s) 4 times daily. Dx: Other DM Code E11.49 Insulin: Yes - Mesalamine (LIALDA) 1.2 gram EC tablet Take 2 tablets by mouth once daily. Per Dr. Jeff Jimenez. - VITAMIN C 1,000 MG TAB Take 1,000 mg by mouth once daily. - GLUCOSAMINE CHONDROITIN MAXSTR 500 MG-400 MG CAP Take 1 capsule by mouth once daily. - MULTIVITAMIN TAB Take 1 tablet by mouth once daily. Problem List As Of Date 03/25/2024 Noted Resolved Type II or unspecified type diabetes mellitus w* 01/11/2014 HYPERLIPIDEMIA NEC/NOS [E78.5] 03/17/2015 Ulcerative colitis (HCC) [K51.90] 01/30/2005 Hypertrophy of prostate without urinary obstruc*08/06/2005 03/19/2016 PERS HX TOBACCO USE [Z87.891] 08/06/2005 Hemorrhage of gastrointestinal tract, unspecifi*02/28/2006 03/19/2016 Iron deficiency anemia due to chronic blood los*07/25/2023 BPH without obstruction/lower urinary tract sym*07/31/2006 03/19/2016 Personal history of colonic polyps [Z86.0100] 07/31/2006 ERECTILE DYSFUNCTION [F52.9] 01/27/2007 01/28/2018 Mitral regurgitation [I34.0] 07/03/2011 DM (diabetes mellitus), type 2, uncontrolled (H*01/11/2014 10/21/2015 Hypertension [I10] 01/11/2014 Hyperlipidemia [E78.5] 03/17/2015 Uncontrolled type 2 diabetes mellitus without c*10/21/2015 03/19/2016 Primary osteoarthritis of right knee [M17.11] 01/28/2018 Aortic stenosis, moderate [I35.0] 10/07/2020 12/02/2023 Diabetes mellitus type 2 with neurological manjula*09/12/2021 Other proteinuria [R80.8] 12/18/2022 Hypoalbuminemia [E88.09] 12/18/2022 Abnormal weight loss [R63.4] 12/18/2022 12/02/2023 Monoclonal gammopathy of undetermined significa*12/22/2022 12/02/2023 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 12/02/2023 Coronary artery disease involving northwestern shoshone pena*02/17/2023 Waldenstrom macroglobulinemia (HCC) [C88.00] 07/25/2023 Aortic valve replaced [Z95.2] 02/28/2023 S/P CABG x 2 [Z95.1] 02/28/2023 Encounter Status:Closed by MARIO ALBERTO ECHAVARRIA on 03/25/24 Normal [facility] HEMOGLOBIN A1C (POC)on 03-25 HbA1c (Bld) [Mass fraction] 6.8 % Abnormal 4.3 - 5.6 % [facility] Comment on above: Location:[facility], [address], [place], [facility] Point of care (POC) Hemoglobin A1c (HGBA1C) testing is intended to assess glucose control and provide a management tool for patients known to have diabetes and their healthcare providers. Target HGBA1C levels may depend on specific clinical circumstances. POC HGBA1C is not intended for use as a diagnostic or screening test; laboratory-based testing should be used for diagnostic purposes. The following information is supplemental and may not be applicable to specific diabetes management situations: The POC device correspondence review clerk provides a normal range of 4.2% to 6.5% for the HGBA1C POC test. However, the [place] [employer] guidelines indicate that patients with HGBA1C in the range of 5.7% to 6.4% are at increased risk for development of diabetes and that intervention by lifestyle modification may be beneficial. A HGBA1C level greater than or equal to 6.5% is considered diagnostic of diabetes, pending confirmatory testing. Use of HGBA1C testing to evaluate glucose control may not be appropriate for patients with hemoglobin variants or other conditions (e.g. anemia) that alter red blood cell lifespan. Interpretation and review of laboratory results Abnormal [facility] Magnesium measurementOrdered By: Marco Hurtado on 02-13-2024 Magnesium [Mass/Vol] 2.3 mg/dL 1.6-2.6 [facility] No Panel InformationOrdered By: Marco Hurtado on 02-13-2024 Tissue Transglutaminase IgG Ab <2 U/mL 0-5 [facility] Comment on above: Negative 0 - 5 Weak Positive 6 - 9 Positive >9 Serum tissue transglutaminas e (tTG) IgA antibody assay (units/volume)Ordered By: Marco Hurtado on 02-13-2024 tTG IgA Qn (S) <2 U/mL 0-3 [facility] Comment on above: Negative 0 - 3 Weak Positive 4 - 10 Positive >10 Tissue Transglutaminase (tTG) has been identified as the endomysial antigen. Studies have demonstr- ated that endomysial IgA antibodies have over 99% specificity for gluten sensitive enteropathy. Mane 12-23-2023 CNPN Telephone (STED) VIDAL KAY ([id number]) 1945 M Date Time Provider Department 12/23/23 LISE RICHTER During your visit today, we recorded the following information about you: Asha Hunt MA 12/23/2023 3:26 PM Signed Faxed OV notes to Ralph to complete patients CGM order. Received confirmation and filed with rest of [facility] orders. Asha Hunt MA Allergies As of Date: 12/23/2023 (No Known Allergies) Date Reviewed: 12/02/2023 Reviewed by: Tamara Leger LPN - Fully Assessed Reason for Visit: Orders [921] Cmt: [facility] Prescriptions as of 12/23/2023 - insulin glargine (LANTUS SOLOSTAR U-100 INSULIN) 100 unit/mL (3 mL) Inject 12 Units subcutaneously daily at bedtime. - ramipril (ALTACE) 5 mg capsule Take 1 capsule by mouth once daily. - dapagliflozin propanediol (FARXIGA) 10 mg tablet Take 1 tablet by mouth once daily. - Insulin [place], Disposable, (BD ULTRA-FINE VY PEN NEEDLE) 32 gauge x 5/32 USES 4 per day with insulin injections. - acetaminophen (TYLENOL) 500 mg tablet Take 500 mg by mouth two times a day. - aspirin, enteric coated (ASPIRIN, ENTERIC COATED) 81 mg EC tablet Take 81 mg by mouth once daily. - metoprolol tartrate, short acting, (LOPRESSOR) 25 mg tablet Take 25 mg by mouth two times a day. - rosuvastatin (CRESTOR) 40 mg tablet - insulin lispro (HUMALOG KWIKPEN INSULIN) 100 unit/mL Inject 4 units with meals PLUS sliding scale #1 (1 unit for every 50 over 150 PRE MEAL blood sugar) ~20 units daily - Blood-Glucose Sensor (DEXCOM G7 SENSOR) rick CHANGE sensor every 10 days. USE FOR CONTINUOUS GLUCOSE MONITORING. INSULIN USE E11.9 - OTC PRODUCT Nehemi[place]lee Iron: Take two tablets by mouth once daily. - Blood-Glucose Meter,Continuous (DEXCOM G7 HOME HEALTH NURSE LICENSED PRACTICAL) [facility] Dispense one lifter/driver USE FOR CONTINUOUS GLUCOSE MONITORING. INSULIN USE E11.9 - lancets (ONE TOUCH DELICA) 33 gauge Test blood sugar(s) 4 times daily. Dx: Other DM Code E11.49 Insulin: Yes - Mesalamine (LIALDA) 1.2 gram EC tablet Take 2 tablets by mouth once daily. Per Dr. Jeff Jimenez. - VITAMIN C 1,000 MG TAB Take one(1) tablet daily. - GLUCOSAMINE CHONDROITIN MAXSTR 500 MG-400 MG CAP Take 1 capsule by mouth once daily. - MULTIVITAMIN TAB Take one(1) tablet daily. Problem List As Of Date 12/23/2023 Noted Resolved Type II or unspecified type diabetes mellitus w* 01/11/2014 HYPERLIPIDEMIA NEC/NOS [E78.5] 03/17/2015 Ulcerative colitis (HCC) [K51.90] 01/30/2005 Hypertrophy of prostate without urinary obstruc*08/06/2005 03/19/2016 PERS HX TOBACCO USE [Z87.891] 08/06/2005 Hemorrhage of gastrointestinal tract, unspecifi*02/28/2006 03/19/2016 Iron deficiency anemia due to chronic blood los*07/25/2023 BPH without obstruction/lower urinary tract sym*07/31/2006 03/19/2016 Personal history of colonic polyps [Z86.010] 07/31/2006 ERECTILE DYSFUNCTION [F52.9] 01/27/2007 01/28/2018 Mitral regurgitation [I34.0] 07/03/2011 DM (diabetes mellitus), type 2, uncontrolled (H*01/11/2014 10/21/2015 Hypertension [I10] 01/11/2014 Hyperlipidemia [E78.5] 03/17/2015 Uncontrolled type 2 diabetes mellitus without c*10/21/2015 03/19/2016 Primary osteoarthritis of right knee [M17.11] 01/28/2018 Aortic stenosis, moderate [I35.0] 10/07/2020 12/02/2023 Diabetes mellitus type 2 with neurological manjula*09/12/2021 Other proteinuria [R80.8] 12/18/2022 Hypoalbuminemia [E88.09] 12/18/2022 Abnormal weight loss [R63.4] 12/18/2022 12/02/2023 Monoclonal gammopathy of undetermined significa*12/22/2022 12/02/2023 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 12/02/2023 Coronary artery disease involving northwestern shoshone pena*02/17/2023 Waldenstrom macroglobulinemia (HCC) [C88.0] 07/25/2023 Aortic valve replaced [Z95.2] 02/28/2023 S/P CABG x 2 [Z95.1] 02/28/2023 Encounter Status:Closed by ASHA HUNT on 12/23/23 Normal [facility] Blood manual differential co mment interpretation (narrative result)Ordered By: Marco Hurtado on 10-10-2023 Manual differential comment Amari (Bld) [Interp] SCANNED [facility] - Hematology and Cell countsOrdered By: Marco Hurtado on 10-10-2023 Anisocytosis Ql (Bld) 1+ [facility] Serum or plasma uric acid me asurement (mass/volume)Ordered By: Marco Hurtado on 10-10-2023 Urate [Mass/Vol] 3.7 mg/dL 3.5-7.2 [facility] Comment on above: The drugs N-Acetylcy steine and Metamizole may falsely depress this assay. Calprotectin stoolOrdered By : Marco Hurtado on 09-05-2023 Calprotectin stool 38 ug/g 0-120 [facility] Comment on above: Concentration Interp retation Follow-Up< 5 - 50 ug/g Normal None>50 -120 ug/g Borderline Re-evaluate in 4-6 weeks >120 ug/g Abnormal Repeat as clinically indicatedPerformed at: [employer] [id number] Director: Bailee Barahona MD, Phone: [phone] Stool gastrointestinal hemog lobin detection by immunologic methodOrdered By: Marco Hurtado on 09-05-2023 Lower GI hemoglobin IA Ql (Stl) Positive Abnormal [facility] Stool lactoferrin detection by immunoassayOrdered By: Marco Hurtado on 09-05-2023 Lactoferrin IA Ql (Stl) [facility] Gamma glutamyl transferase ( GGT) measurementOrdered By: Marco Hurtado on 08-19-2023 Amylase [Catalytic activity/Vol] 30 U/L 15-85 [facility] * Viscosity of serumOrdered By: Marco Hurtado on 07-16-2023 Viscosity (S) [Visc] 2.8 rel.saline 1.4-2.1 [facility] Comment on above: Results verified b y repeat testingValues above 2.7 may indicate paraproteinemia is present.Performed at: [facility] [id number] Director: Elías Bush PhD, Phone: [phone] at: [facility] [id number] Director: Bailee Barahona MD, Phone: [phone] Absolute lymphocyte countOrd ered By: Marco Hurtado on 07-16-2023 Lymphocytes Auto (Unsp spec) [#/Vol] 1.01 10*3/uL 0.83-4.51 [facility] Activated partial thrombopla stin time (aPTT) in platelet poor plasma by coagulation aOrdered By: Marco Hurtado on 07-16-2023 aPTT Coag (PPP) [Time] 38.4 s High 24.1-36.2 [facility] Albumin Elph [Mass/Vol]Order ed By: Marco Hurtado on 07-16-2023 Albumin [Mass/Vol] 2.0 g/dL 2.9-4.4 [facility] Automated lymphocyte count a s percentage of total leukocytesOrdered By: Marco Hurtado on 07-16-2023 Lymphocytes/100 WBC Auto (Unsp spec) 13.7 % 19-41 [facility] Basophil percentageOrdered B y: Marco Hurtado on 07-16-2023 Basophils/100 WBC (Bld) 1.0 % 0-1 [facility] Bilirubin [Mass/Vol] 0.30 mg/dL 0.20-1.00 [facility] Comment on above: For patients on eltr ombopag therapy, use of Dimension Lingle TBIL is not recommended. Chloride [Moles/Vol] 102 mmol/L 98-107 [facility] Eosinophils/100 WBC (Bld) 1.1 % 0-5 [facility] Glucose [Mass/Vol] 107 mg/dL 74-106 [facility] Comment on above: Fasting Glucose resu lt from 100 to 125 mg/dL suggests IMPAIRED HOMEOSTASIS per A.D.A. criteria. Hemoglobin (Bld) [Mass/Vol] 7.7 g/dL 13.0-16.5 [facility] LDH [Catalytic activity/Vol] 163 U/L 87-241 [facility] Monocytes/100 WBC (Bld) 13.1 % 0-10 [facility] Neutrophils (Bld) [#/Vol] 5.2 10*3/uL 2.0-7.7 [facility] Neutrophils/100 WBC (Bld) 70.7 % 47-70 [facility] Potassium [Moles/Vol] 4.0 mmol/L 3.5-5.1 [facility] Protein [Mass/Vol] 9.0 g/dL 6.4-8.2 [facility] Sodium [Moles/Vol] 136 mmol/L 136-145 [facility] WBC (Bld) [#/Vol] 7.4 10*3/uL 4.4-11.0 [facility] Determination of erythrocyte mean corpuscular volume (MCV)Ordered By: Marco Hurtado on 07-16-2023 MCV (RBC) [Entitic vol] 76.1 fL 80-94 [facility] Erythrocyte distribution wid th ratioOrdered By: Marco Hurtado on 07-16-2023 Erythrocyte distribution width (RBC) [Ratio] 16.3 % 11.6-14.6 [facility] Erythrocyte distribution wid th standard deviationOrdered By: Marco Hurtado on 07-16-2023 Erythrocyte distribution width (RBC) [Entitic vol] 45.4 fL 35.1-43.9 [facility] Erythrocyte sedimentation ra teOrdered By: Marco Hurtado on 07-16-2023 ESR (Bld) [Velocity] 22 mm/h 0-20 [facility] Hematocrit Auto (Bld) [Volum e fraction]Ordered By: Marco Hurtado on 07-16-2023 Hematocrit (Bld) [Volume fraction] 26.1 % 40-54 [facility] Hemoglobin in reticulocytes (mass per reticulocyte)Ordered By: Marco Hurtado on 07-16-2023 Hemoglobin (Reticulocytes) [Entitic mass] 23.7 pg 30-35 [facility] Immature granulocytes/100 WB C Auto (Bld)Ordered By: Marco Hurtado on 07-16-2023 Immature granulocytes/100 WBC (Bld) 0.400 % 0.0-0.9 [facility] Comment on above: IG% - Immature Granu locytes (promyelocytes, myelocytes and metamyelocytes) > 1% indicates that a LEFT SHIFT is Present. International normalized rat io (INR) calculationOrdered By: Marco Hurtado on 07-16-2023 INR Coag (Bld) [Relative time] 1.2 {INR} [facility] Interpretation of serum or p lasma protein pattern by immunofixation (narrative resultOrdered By: Marco Hurtado on 07-16-2023 Protein Fractions Immunofixation Amari [Interp] Comment: g/dL Not Observed [facility] Comment on above: SPE shows an atypica l staining adhering to the point ofapplication. Iron measurement (mass/mass) Ordered By: Marco Hurtado on 07-16-2023 Iron (Unsp spec) [Mass/Mass] 16 ug/dL 65-175 [facility] - Chemistry and C hemistry - challengeOrdered By: Marco Hurtado on 07-16-2023 Albumin/Globulin [Mass ratio] 0.4 {ratio} 0.9-2.4 [facility] ALP [Catalytic activity/Vol] 122 U/L 45-117 [facility] ALT [Catalytic activity/Vol] 44 U/L 16-61 [facility] CO2 [Moles/Vol] 29.0 mmol/L 21.0-32.0 [facility] Cobalamin (Vitamin B12) [Mass/Vol] 688 pg/mL 211-911 [facility] Ferritin [Mass/Vol] 179 ng/mL 26-388 [facility] Urea nitrogen/Creatinine [Mass ratio] 27.9 mg/mg 10-20 [facility] - Hematology and Cell countsOrdered By: Marco Hurtado on 07-16-2023 MCH (RBC) [Entitic mass] 22.4 pg 27.0-32.0 [facility] MCHC (RBC) [Mass/Vol] 29.5 g/dL 32-36 [facility] Nucleated RBC/100 WBC (Bld) [Ratio] 0 % 0-5 [facility] Platelet mean volume (Bld) [Entitic vol] 8.9 fL 6.2-12.0 [facility] Platelets (Bld) [#/Vol] 366 10*3/uL 150-450 [facility] No Panel InformationOrdered By: Marco Hurtado on 07-16-2023 Addendum Document Comment . [facility] Comment on above: Protein electrophore sis scan will follow via computer,mail, or furnace tapper delivery. C-Reactive Protein Extended Range 86.80 mg/L 0.0-3.0 [facility] Comment on above: C-Reactive Protein ( CRP) provides useful information for thediagnosis, therapy and monitoring of inflammatory processesand associated diseases. For the evaluation of Relative Riskfor Cardiovascular Disease, a High Sensitivity CRP (HSCRP)should be ordered. Estimated GFR (MDRD) Amer 89 mL/min >60 [facility] Comment on above: GFR Calc Estimated GFR (MDRD) Non-Af Amer 73 mL/min >60 [facility] Comment on above: Non- GFR Calc Free Lambda Light Chains, Quant 15.2 mg/L 5.7-26.3 [facility] Hepatitis B Surface Antibody Non-Reactive . [facility] Comment on above: Non Reactive: Incons istent with immunity, less than 10 mIU/mL Reactive: Consistent with immunity, greater than 9.9 mIU/mL Hepatitis C Antibody Non-Reactive Non Reactive [facility] Hepatitis C Antibody Comment Comment . [facility] Comment on above: Not infected with HC V unless early or acute infection issuspected (which may be delayed in an immunocompromisedindividual), or other evidence exists to indicate HCVinfection. Immature Reticulocyte Fraction 10.50 % 3.00-15.90 [facility] Immunoglobulin M 3904 mg/dL 15-143 [facility] Comment on above: Results confirmed on dilution. Serum Cryoglobulins Comment None detected [facility] Comment on above: None Detected at 72 hoursThis test was developed and its performance characteristicsdetermined by [employer]. It has not been cleared orapproved by the Food and Drug Administration. Total Iron Binding Capacity 205 ug/dL 250-450 [facility] Prothrombin timeOrdered By: Maroc Hurtado on 07-16-2023 PT Coag (PPP) [Time] 15.2 s High 11.7-14.9 [facility] RBC Auto (Bld) [#/Vol]Ordere d By: Marco Hurtado on 07-16-2023 RBC (Bld) [#/Vol] 3.43 10*6/uL 4.6-6.2 [facility] Reticulocytes Auto (Bld) [#/ Vol]Ordered By: Marco Hurtado on 07-16-2023 Reticulocytes/100 RBC (Bld) 0.79 % 0.5-1.5 [facility] Serum [id number] measu rement by electrophoresisOrdered By: Marco Hurtado on 07-16-2023 Alpha 1 globulin Elph [Mass/Vol] 0.8 g/dL 0.0-0.4 [facility] Alpha 1 globulin Elph [Mass/Vol] 1.5 g/dL 0.4-1.0 [facility] Serum globulin measurement ( mass/volume)Ordered By: Marco Hurtado on 07-16-2023 Globulin (S) [Mass/Vol] 6.5 g/dL 2.2-3.9 [facility] Serum hepatitis B virus core antibody detectionOrdered By: Marco Hurtado on 07-16-2023 HBV core Ab Ql (S) Negative Negative [facility] Serum immunoglobulin kappa l ight chains/immunoglobulin lambda light chains mass ratioOrdered By: Marco Hurtado on 07-16-2023 Immunoglobulin light chains.kappa/Immunoglob ulin light chains.lambda (S) [Mass ratio] 3.01 0.26-1.65 [facility] Comment on above: Performed at: [address] [id number] Director: Elías Bush PhD, Phone: [phone] Serum or plasma IgA measurem ent (mass/volume)Ordered By: Marco Hurtado on 07-16-2023 IgA [Mass/Vol] 50 mg/dL 61-284 [facility] Comment on above: Result confirmed on concentration. Serum or plasma IgG measurem ent (mass/volume)Ordered By: Marco Hurtado on 07-16-2023 IgG [Mass/Vol] 830 mg/dL 603-1615 [facility] Serum or plasma beta globuli n measurement by electrophoresis (mass/volume)Ordered By: Marco Hurtado on 07-16-2023 Beta globulin Elph [Mass/Vol] 3.2 g/dL 0.7-1.3 [facility] Comment on above: Specimen was pretrea meka with 2-Mercaptoethanol. Serum or plasma calcium aleksandar urement (mass/volume)Ordered By: Marco Hurtado on 07-16-2023 Calcium [Mass/Vol] 9.4 mg/dL 8.5-10.1 [facility] Serum or plasma creatinine m easurement (mass/volume)Ordered By: Marco Hurtado on 07-16-2023 Creatinine [Mass/Vol] 1.04 mg/dL 0.70-1.30 [facility] Comment on above: The validity of the calculated GFR & GFRAA in patients over 70 years has not been determined. Clinical correlation is essential. Serum or plasma gamma globul in measurement by electrophoresis (mass/volume)Ordered By: Marco Hurtado on 07-16-2023 Gamma globulin Elph [Mass/Vol] 1.0 g/dL 0.4-1.8 [facility] Serum or plasma hepatitis B virus surface antigen detection by immunoassayOrdered By: Marco Hurtado on 07-16-2023 HBV surface Ag IA Ql Negative Negative [facility] Serum or plasma immunoelectr ophoresis interpretation (nominal result)Ordered By: Marco Hurtado on 07-16-2023 Interpretation IEP [Interp] Comment: . [facility] Comment on above: RAMESH shows asymmetric al IgM suggestive of a monoclonal protein. Serum or plasma immunoglobul in kappa light chains measurement (mass/volume)Ordered By: Marco Hurtado on 07-16-2023 Immunoglobulin light chains.kappa [Mass/Vol] 45.7 mg/L 3.3-19.4 [facility] Serum or plasma iron saturat ion measurement (mass fraction)Ordered By: Marco Hurtado on 07-16-2023 Iron saturation [Mass fraction] 7.8 % 15.0-55.0 [facility] Serum or plasma urea nitroge n measurement (mass/volume)Ordered By: Marco Hurtado on 07-16-2023 Urea nitrogen [Mass/Vol] 29 mg/dL 7-18 [facility] Serum or plasma uric acid me asurement (mass/volume)Ordered By: Marco [facility] on 07-16-2023 Urate [Mass/Vol] 3.4 mg/dL 3.5-7.2 [facility] Comment on above: The drugs N-Acetylcy steine and Metamizole may falsely depress this assay. Thin prep Papanicolaou smear with manual screeningOrdered By: Marco Hurtado on 07-16-2023 Thin prep Papanicolaou smear with manual screening 2.5 g/dL 3.2-5.0 [facility] Thin prep Papanicolaou smear with manual screening 35 U/L 15-37 [facility] Thin prep Papanicolaou smear with manual screening 5 5-15 [facility] Thin prep Papanicolaou smear with manual screening 0.4 0.7-1.7 [facility] Total protein bloodOrdered B y: Marco Hurtado on 07-16-2023 Protein [Mass/Vol] 8.5 g/dL 6.0-8.5 [facility] HEMOGLOBIN A1C (POC)on 07-02 HbA1c (Bld) [Mass fraction] 7.3 % Abnormal 4.3 - 5.6 % [facility] Thin prep Papanicolaou smear with manual screeningOrdered By: Douglas Friend on 05-20-2023 Thin prep Papanicolaou smear with manual screening 138 mg/dL 74-106 [facility] Comment on above: MANAGEMENT OF PATIRUTH T CARE PER NURSING PROTOCOL Progress Noteon 04-09-2023 Progress Note [facility]: [facility] [address] [facility] [address] Dept: [phone] Dept Loc: [phone] Visit type: Established patient Reason for Visit: Follow-up Assessment and Plan CAD s/p CABG Aortic Valve stenosis S/P Tissue AVR Post Op A-fib HTN HLD Former smoker DM II GDMT for CAD - Asa, BB, Statin therapy - DC Eliquis - ok for chemotherapy for lymphoma at [facility] - Cardiac rehab at [place] - No further follow up in our office pt will call for further needs Disposition: Patient verbalized understanding of plan and stated they would call if any questions or concerns arise. Treatment Team: PCP: Felix Bill Subjective HPI: Vidal Kay is a 78 y.o. male referred by Dr. Baig for severe coronary artery bypass surgery and a aortic valve replacement. He presented as an OP for AVR and CABG x [address] Rodríguez. His EF is preserved at 60% 02/28/23 Rodríguez: CABG x 2, Tissue AVR, LEVH 03/05/23 US guided thoracentesis Since he was last seen has has continued to progress currently is in cardiac rehab and loves the program. He has been back to normal activities and hubert well. Review of Systems Constitutional: Negative for activity change, diaphoresis, fatigue, fever and unexpected weight change. Respiratory: Negative for cough, chest tightness and shortness of breath. Cardiovascular: Negative for chest pain, palpitations and leg swelling. Gastrointestinal: Negative for abdominal distention and abdominal pain. Musculoskeletal: Negative for back pain, gait problem and myalgias. No Known Allergies Outpatient Medications Prior to Visit Medication Sig Dispense Refill apixaban (Eliquis) 5 MG tablet Take 1 tablet (5 mg) by mouth 2 times daily. 60 tablet 0 ascorbic acid (Vitamin C) 1000 MG tablet Take 1,000 mg by mouth daily. aspirin 81 MG EC tablet Take 81 mg by mouth daily. dapagliflozin (Farxiga) 10 MG Take 10 mg by mouth daily. ferrous sulfate 325 (65 Fe) MG tablet Take 1 tablet by mouth daily. furosemide (Lasix) 40 MG tablet Take 1 tablet (40 mg) by mouth daily. 30 tablet 11 glipiZIDE (Glucotrol) 5 MG tablet Take 10 mg by mouth daily. glucosamine-chondroitin 500-400 MG tablet Take 1 tablet by mouth 3 times daily. mesalamine (Lialda) 1.2 g EC tablet Take 2,400 mg by mouth daily (with breakfast). Do not crush, chew, or split. metoprolol tartrate (Lopressor) 25 MG tablet Take 0.5 tablets (12.5 mg) by mouth 2 times daily. 30 tablet 1 Multiple Vitamins-Minerals (multivitamin with minerals) tablet Take 1 tablet by mouth daily. pantoprazole (ProtoNix) 40 MG EC tablet Take 1 tablet (40 mg) by mouth every morning (before breakfast). Do not crush, chew, or split. 30 tablet 11 rosuvastatin (Crestor) 40 MG tablet Take 1 tablet (40 mg) by mouth Nightly. 30 tablet 11 furosemide (Lasix) 40 MG tablet Take 1 tablet (40 mg) by mouth daily for 10 days. No facility-administered medications prior to visit. Past Medical History: Diagnosis Date Cancer (CMS/HCC) (HCC) lymphoma Colitis Coronary artery disease Diabetes mellitus (HCC) Heart murmur Heart valve disease Objective Patient reported: No flowsheet data found. There were no vitals filed for this visit. Wt Readings from Last 3 Encounters: 03/19/23 153 lb (69.4 kg) 03/05/23 166 lb 3.6 oz (75.4 kg) 02/19/23 146 lb 12.8 oz (66.6 kg) Patient was identified and seen today via Telehealth by agreement and consent. I used the following Telehealth technology: Audio capability only. Total length of call 25 minutes. The patient was offered and advised video for a more comprehensive evaluation, but the patient declined or was unable to use video. Patient location: [place] Patient Location: Home. This patient encounter is appropriate and reasonable under the circumstances: transportation issues . The patient has been advised of the potential risks and limitations of this mode of treatment (including but not limited to the absence of in-person examination) and has agreed to be treated in a remote fashion in spite of them. Any and all of the patient's/patient's family's questions on this issue have been answered and I have made no promises or guarantees to the patient. The patient has also been advised to contact this office for worsening conditions or problems, and seek emergency medical treatment and/or call 911 if the patient deems either necessary. The patient stated that they are currently in the state [facility]. If the patient is a minor, permission has been obtained by the parent or guardian for the patient to receive medical care at this visit. Physical exam deferred due to virtual visit-with audio (telephone) capabilities only Data Reviewed and Summarized Labs/Imaging/Testing: reviewed EMR, see A&P for pertinent diagnostic results related to office visit VINICIO Friend CNP [facility] 36on 04-03-2023 36 Patient called in to clarify. Patient to stop amio and decrease metoprolol to 12.5 mg twice daily. 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 [facility] 36 Left voicemail for p t to call office. [place] [id number] Reviewed last note imelda Walsh APRN. Per his plan patient was to d/c Amiodarone and decrease Metoprolol dose to 12.5mg BID (half dose). I will send in a refill of the Metoprolol. Please notify patient. VINICIO Ballard CNP 04/03/23 [facility] 36on 04-02-2023 36 Pt states pt ne eds refills on Amiodarone and Metoprolol. Cardiology appointment is scheduled for 04/16/23. Pt is scheduled for VV with ANGLE Goodson on 04/09/23. ANGLE Goodson Note lasix 80 mg for next three days - then lasix 40 mg PO PRN for weight gain greater than 3 lbs - - Continue lopressor in half dose to allow higher BP while diuresing - asa, BB, statin, and eliquis x 3 months for tissue valve and CAD - Two months recovery for chemo therapy for lymphoma at the [facility] if he would like a second opinion he will let us know - Coccyx Ulcer resolved -VV in 2 weeks to ensure recovery - Call PRN for needs Normal [facility] 36 Patient's fernandez d in and would like to know if he should continue to take the amioderone and Metoprolol. If so, they need refills called into [facility] in [place]. Home health nurse called as well and said his B/P is running 138/61, which is out of the protocol for him. When he lays on his left side, he has a dry cough as well that she wanted to report. [facility] 36 called in and would like for the lantus injection 100 to be removed from the medication list. They will not use it, due to they use the pen for this. Thank you. [facility] Progress Noteon 03-25-2023 Progress Note [facility]: [facility] [address] [facility] [address] Dept: [phone] Dept Loc: [phone] Visit type: Established patient Reason for Visit: Follow-up Assessment and Plan CAD s/p CABG Aortic Valve stenosis S/P Tissue AVR Post Op A-fib HTN HLD Former smoker DM II - lasix 80 mg for next three days - then lasix 40 mg PO PRN for weight gain greater than 3 lbs - - Continue lopressor in half dose to allow higher BP while diuresing - asa, BB, statin, and eliquis x 3 months for tissue valve and CAD - Two months recovery for chemo therapy for lymphoma at the [facility] if he would like a second opinion he will let us know - Coccyx Ulcer resolved -VV in 2 weeks to ensure recovery - Call PRN for needs Disposition: Patient verbalized understanding of plan and stated they would call if any questions or concerns arise. Treatment Team: PCP: Felix Bill Subjective HPI: Vidal Kay is a 78 y.o. male referred by Dr. Baig for severe coronary artery bypass surgery and a aortic valve replacement. He presented as an OP for AVR and CABG x [address] Rodríguez. His EF is preserved at 60% 02/28/23 Rodríguez: CABG x 2, Tissue AVR, LEVH 03/05/23 US guided thoracentesis I saw him in the office last week for post op initial visit - He had considerable BLE and weight gain with associated orthopnea. He was started on lasix 40 mg daily and presents via phone call due to transport issues from [place]. His dry weight was established at 145 Lbs he is now 148 lbs down from 155 lbs last week and the swelling has almost resolved. All other symptoms have resolved. He has no new issues overall he is doing well. Review of Systems Constitutional: Negative for diaphoresis, fatigue and fever. Respiratory: Negative for cough, shortness of breath and wheezing. Cardiovascular: Negative for chest pain, palpitations and leg swelling. Gastrointestinal: Negative for abdominal distention, constipation and diarrhea. Skin: Negative for color change, pallor and rash. No Known Allergies Outpatient Medications Prior to Visit Medication Sig Dispense Refill apixaban (Eliquis) 5 MG tablet Take 1 tablet (5 mg) by mouth 2 times daily. 60 tablet 0 ascorbic acid (Vitamin C) 1000 MG tablet Take 1,000 mg by mouth daily. aspirin 81 MG EC tablet Take 81 mg by mouth daily. dapagliflozin (Farxiga) 10 MG Take 10 mg by mouth daily. ferrous sulfate 325 (65 Fe) MG tablet Take 1 tablet by mouth daily. furosemide (Lasix) 40 MG tablet Take 1 tablet (40 mg) by mouth daily for 10 days. glipiZIDE (Glucotrol) 5 MG tablet Take 10 mg by mouth daily. glucosamine-chondroitin 500-400 MG tablet Take 1 tablet by mouth 3 times daily. insulin glargine (Lantus) 100 UNIT/ML injection Inject 25 Units under the skin Nightly. 10 mL 12 mesalamine (Lialda) 1.2 g EC tablet Take 2,400 mg by mouth daily (with breakfast). Do not crush, chew, or split. metoprolol tartrate (Lopressor) 25 MG tablet Take 0.5 tablets (12.5 mg) by mouth 2 times daily. Multiple Vitamins-Minerals (multivitamin with minerals) tablet Take 1 tablet by mouth daily. pantoprazole (ProtoNix) 40 MG EC tablet Take 1 tablet (40 mg) by mouth every morning (before breakfast). Do not crush, chew, or split. 30 tablet 11 rosuvastatin (Crestor) 40 MG tablet Take 1 tablet (40 mg) by mouth Nightly. 30 tablet 11 No facility-administered medications prior to visit. Past Medical History: Diagnosis Date Cancer (CMS/HCC) (HCC) lymphoma Colitis Coronary artery disease Diabetes mellitus (HCC) Heart murmur Heart valve disease Objective Patient reported: No flowsheet data found. There were no vitals filed for this visit. Physical exam deferred due to virtual visit-with audio (telephone) capabilities only Data Reviewed and Summarized Labs/Imaging/Testing: reviewed EMR, see A&P for pertinent diagnostic results related to office visit Patient was identified and seen today via Telehealth by agreement and consent. I used the following Telehealth technology: Audio capability only. Total length of call 32 minutes. The patient was offered and advised video for a more comprehensive evaluation, but the patient declined or was unable to use video. Patient location: Patient Location: Home. This patient encounter is appropriate and reasonable under the circumstances: transportation issues . The patient has been advised of the potential risks and limitations of this mode of treatment (including but not limited to the absence of in-person examination) and has agreed to be treated in a remote fashion in spite of them. Any and all of the patient's/patient's family's questions on this issue have been answered and I have made no promises or guarantees to the patient. The patient has also been advised to contact this office for worsening conditions or problems, and seek emergency medical treatment and/or call 911 if the pat (more content not included)... Normal [facility] Office Visiton 03-19-2023 Follow-up visit [id number] Guero Kay 1945 M Date Provider Department Center 03/19/2023 16522[facility] None No family history on file Level of Service:01330 [place] POSTOP FOLLOW UP VISIT RELATED TO ORIGINAL PX Reason for Visit and Comments: Post-op [483] Normal [facility] Progress Noteon 03-19-2023 Progress Note [facility]: [facility] [address] [facility] [address] [facility] [address] Dept: [phone] Dept Loc: [phone] Visit type: Established patient Reason for Visit: Post-op Assessment and Plan CAD s/p CABG Aortic Valve stenosis S/P Tissue AVR Post Op A-fib HTN HLD Former smoker DM II - Lasix 40 mg daily continue goal is to loose 8 more lbs - DC amiodarone and cut lopressor in half to allow higher BP while diuresing - asa, BB, statin, and eliquis for tissue valve and CAD - Iron tabs for Microcytic anemia - Two months recovery for chemo therapy for lymphoma at the [facility] if he would like a second opinion he will let us know - Continue Barrier cream for Coccyx Ulcer - Liberalize activity sleeping in bed and out of recliner to help with wound - phone call in 1 week to ensure progress - Physical Visit in three weeks Disposition: Patient verbalized understanding of plan and stated they would call if any questions or concerns arise. Treatment Team: PCP: Felix Bill Subjective HPI: Vidal Kay is a 78 y.o. male referred by Dr. Baig for severe coronary artery bypass surgery and a aortic valve replacement. He presented as an OP for AVR and CABG x [address] Rodríguez. His EF is preserved at 60% 02/28/23 Rodríguez: CABG x 2, Tissue AVR, LEVH 03/05/23 US guided thoracentesis Since DC the patient has had edema to BLE no associated symptoms. He is up approx 8 lbs he called with the swelling and was started on lasix then had dizziness and his amlodipine was DC. His lasix was cut to 40mg and he continues to have good urine output. His MSCI is intact CT sites intact, tape and steri strips removed, his LEVH sites are intact. 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 I reminded him of lifting restrictions. Review of Systems Constitutional: Negative for activity change, diaphoresis, fatigue, fever and unexpected weight change. Respiratory: Negative for cough, chest tightness and shortness of breath. Cardiovascular: Positive for leg swelling. Negative for chest pain and palpitations. Gastrointestinal: Negative for abdominal distention and abdominal pain. Endocrine: Positive for cold intolerance. Negative for heat intolerance. Genitourinary: Positive for frequency. Musculoskeletal: Negative for back pain, gait problem and myalgias. Skin: Positive for pallor and wound (coccyx stage 1 pressure ulcer). Allergic/Immunologic: Negative for environmental allergies and food allergies. No Known Allergies Outpatient Medications Prior to Visit Medication Sig Dispense Refill acetaminophen (Tylenol) 500 MG tablet Take 2 tablets (1,000 mg) by mouth in the morning and 2 tablets (1,000 mg) at noon and 2 tablets (1,000 mg) before bedtime. Do all this for 10 days. 30 tablet 0 apixaban (Eliquis) 5 MG tablet Take 1 tablet (5 mg) by mouth 2 times daily. 60 tablet 0 ascorbic acid (Vitamin C) 1000 MG tablet Take 1,000 mg by mouth daily. aspirin 81 MG EC tablet Take 81 mg by mouth daily. dapagliflozin (Farxiga) 10 MG Take 10 mg by mouth daily. ferrous sulfate 325 (65 Fe) MG tablet Take 1 tablet by mouth daily. glipiZIDE (Glucotrol) 5 MG tablet Take 10 mg by mouth daily. glucosamine-chondroitin 500-400 MG tablet Take 1 tablet by mouth 3 times daily. insulin glargine (Lantus) 100 UNIT/ML injection Inject 25 Units under the skin Nightly. 10 mL 12 mesalamine (Lialda) 1.2 g EC tablet Take 2,400 mg by mouth daily (with breakfast). Do not crush, chew, or split. Multiple Vitamins-Minerals (multivitamin with minerals) tablet Take 1 tablet by mouth daily. pantoprazole (ProtoNix) 40 MG EC tablet Take 1 tablet (40 mg) by mouth every morning (before breakfast). Do not crush, chew, or split. 30 tablet 11 rosuvastatin (Crestor) 40 MG tablet Take 1 tablet (40 mg) by mouth Nightly. 30 tablet 11 amiodarone (Pacerone) 200 MG tablet Take 1 tablet (200 mg) by mouth daily. 30 tablet 11 furosemide (Lasix) 80 MG tablet Take 1 tablet (80 mg) by mouth daily for 10 days. 10 tablet 0 metoprolol tartrate (Lopressor) 25 MG tablet Take 1 tablet (25 mg) by mouth 2 times daily. 60 tablet 11 amLODIPine (Norvasc) 10 MG tablet Take 1 tablet (10 mg) by mouth daily. 30 tablet 11 No facility-administered medications prior to visit. Past Medical History: Diagnosis Date Cancer (CMS/HCC) (HCC) lymphoma Colitis Coronary artery disease Diabetes mellitus (HCC) Heart murmur Heart valve disease Objective Patient reported: No flowsheet data found. Vitals: 03/19/23 1022 BP: (!) 145/72 Pulse: 85 Wt Readings from Last 3 Encounters: 03/19/23 153 lb (69.4 kg) 03/05/23 166 lb 3.6 oz (75.4 kg) 02/19/23 146 lb 12.8 oz (66.6 kg) Physical Exam Cardiovascular: Rate and Rhythm: Normal rate and regular rhythm. Heart sounds: Normal heart sounds. Pulmonary: Effort: Pulmonary effort is normal. Breath sounds: Normal breath sounds. A (more content not included)... Normal [facility] 36on 03-14-2023 36 Discussed with leonarda grewal and Patient will hold norvasc and also cut lasix in half. He will keep a record of BP and weight If BP outside of parameters given patient to call. Any gain in weight 5lbs in three days or 3 lbs in a day or increase in BLE edema he is to notify our office Has follow up next week with JULIO; he will call with any issues or concerns or new/worsening symptoms Normal [facility] 36 Pt called and stated pt is on day 3 of taking Lasix 80 mg daily. She states pt blood pressure has steadily decreased. Pt blood pressure over the weekend was 146/50, today it was 116/43. She states pt is experiencing lightheadedness, dizziness, and fatigue. Pt also states that pt BLE edema has decreased some but not enough. She states they are still having trouble getting compression stockings on. She states pt wears compression stockins as much as possible, however she can not get them on d/t RA and pt can't get them on either. She said a friend helped put them on yesterday but pt does not have them on today. She states pt does elevate BLE in a recliner. Please advise. 02/28/23 Rodríguez: CABG x 2, Tissue AVR, LEVH. Phoenix Walsh, [employer] RE[facility] Note 03/11/23 PC to the patient advised to take 80 mg lasix for 3 days and call on SATURDAY WITH AN UPDATE [facility] 36on 03-11-2023 36 PC to the patient advised to take 80 mg lasix for 3 days and call on SATURDAY WITH AN UPDATE Normal [facility] 36 Called and spoke to patient and regarding swelling. Patient is dening all other symptoms. He is wearing his meka hose and walking, elevating when sitting. Patient states his legs and feet are so swollen he can't get on his socks and slippers. 02/28/23 Rodríguez: CABG x 2, Tissue AVR, LEVH. Called and spoke to Nura MOONEY- he will call in some lasix to his pharmacy ( [facility] in [place]). Patient instructed to meat pickler prescription and to call Saturday with an update. All questions were answered. Normal [facility] 36 Patient calling in and states both patient legs are swollen Please advise [phone] Normal [facility] CARECOORDon 03-06-2023 CARECOORD Patient Choice Patient Name: VIDAL KAY Date of : 1945 Normal [facility] 36on 03-05-2023 36 Phoenix Walsh APRN- ABRAM saw pt this morning. Plan to DC tomorrow per note. Normal [facility] BASIC METABOLIC PANELon 11-0 Anion gap [Moles/Vol] 8 mmol/L Normal 3-13 [facility] Comment on above: Performed By: #### L AB15 ####Lifter/Driver: KATERINE BOLTON ([id number])[address] Calcium [Mass/Vol] 9.0 mg/dL Normal 8.4-10.4 [facility] Comment on above: Performed By: #### L AB15 ####Lifter/Driver: KATERINE BOLTON ([id number])[facility] ([facility])[address] [place] [address] Chloride [Moles/Vol] 101 mmol/L Normal 98-107 [facility] Comment on above: Performed By: #### L AB15 ####Lifter/Driver: KATERINE BOLTON ([id number])[facility] ([facility])[address] [place] [address] [place] CO2 [Moles/Vol] 25 mmol/L Normal 22-30 [facility] Comment on above: Performed By: #### L AB15 ####Lifter/Driver: KATERINE BOLTON ([id number])[facility] [place] [address] Creatinine [Mass/Vol] 1.20 mg/dL Normal 0.66-1.25 [facility] Comment on above: Performed By: #### L AB15 ####Lifter/Driver: KATERINE BOLTON ([id number])[facility] [place] [address] GLOMERULAR FILTRATION RATE ML/MIN/1.73 SQ M.PREDICTED 61.9 mL/min/1.73m*2 Normal >60.0 [facility] Comment on above: Result Comment: Calc ulation based on the Chronic Kidney Disease Epidemiology Collaboration (CKD-EPI) equation refit without adjustment for race Performed By: #### L AB15 ####Lifter/Driver: KATERINE BOLTON ([id number])[facility])[address] [place] [address] [place] Glucose [Mass/Vol] 107 mg/dL High 70-100 [facility] Comment on above: Performed By: #### L AB15 ####Lifter/Driver: KATERINE BOLTON ([id number])[facility] [place] [address] Potassium [Moles/Vol] 4.5 mmol/L Normal 3.5-5.1 [facility] Comment on above: Performed By: #### L AB15 ####Lifter/Driver: KATERINE BOLTON ([id number])[facility] [place] [address] [place] Sodium [Moles/Vol] 133 mmol/L Low 135-145 [facility] Comment on above: Performed By: #### L AB15 ####Lifter/Driver: KATERINE BOLTON ([id number])[facility] [place] [address] [place] Urea nitrogen [Mass/Vol] 69 mg/dL High 9-20 [facility] Comment on above: Performed By: #### L AB15 ####Lifter/Driver: KATERINE BOLTON ([id number])[address] Basic metabolic 1998 panelon 03-05-2023 Anion gap [Moles/Vol] 8 mmol/L 3 - 13 mmol/L [facility] Calcium [Mass/Vol] 9.0 mg/dL 8.4 - 10. 4 mg/dL [facility] Chloride [Moles/Vol] 101 mmol/L 98 - 10 7 mmol/L [facility] CO2 [Moles/Vol] 25 mmol/L 22 - 30 mmol/L [facility] Creatinine [Mass/Vol] 1.20 mg/dL 0.66 - 1.25 mg/dL [facility] GFR/1.73 sq M.predicted MDRD (S/P/Bld) [Vol rate/Area] 61.9 mL/min/{1.73_m2} [facility] Comment on above: Calculation based on the Chronic Kidney Disease Epidemiology Collaboration (CKD-EPI) equation refit without adjustment for race Glucose [Mass/Vol] 107 mg/dL High 70 - 100 mg/dL [facility] Interpretation and review of laboratory results Abnormal [facility] Potassium [Moles/Vol] 4.5 mmol/L 3.5 - 5.1 mmol/L [facility] Sodium [Moles/Vol] 133 mmol/L Low 135 - 145 mmol/L [facility] Urea nitrogen [Mass/Vol] 69 mg/dL High 9 - 20 mg/dL [facility] CARECOORDon 03-05-2023 CARECOZAID Spoke with patient a nd family at bedside, aware C is set up through [facility], no further discharge needs expressed. Normal [facility] CBC (HEMOGRAM)on 03-05-2023 Erythrocyte distribution width (RBC) [Ratio] 17.5 % High 11.5-14.5 [facility] Comment on above: Performed By: #### L [id number] ####Lifter/Driver: KATERINE BOLTON ([id number])[facility])[address] [place] [address] ERYTHROCYTE MEAN CORPUSCULAR HEMOGLOBIN CONCENTRATION (G/DL) BY AUTOMATED 32.8 % Normal 32.0-36.0 [facility] Comment on above: Performed By: #### L [id number] ####Lifter/Driver: KATERINE BOLTON ([id number])[facility])[address] [place] [address] Hematocrit (Bld) [Volume fraction] 28.8 % Low 40.0-52.0 [facility] Comment on above: Performed By: #### L [id number] ####Lifter/Driver: KATERINE BOLTON ([id number])[facility])[address] [place] [address] Hemoglobin (Bld) [Mass/Vol] 9.5 g/dL Low 13.0-18.0 [facility] Comment on above: Performed By: #### L [id number] ####Lifter/Driver: KATERINE BOLTON ([id number])[facility] ([facility])[address] [place] [address] MCH (RBC) [Entitic mass] 26.6 pg Normal 26.0-34.0 [facility] Comment on above: Performed By: #### L [id number] ####Lifter/Driver: KATERINE BOLTON ([id number])[facility])[address] [place] [address] MCV (RBC) [Entitic vol] 81.0 fL Normal 80.0-98.0 [facility] Comment on above: Performed By: #### L [id number] ####Lifter/Driver: KATERINE BOLTON ([id number])[facility])[address] [place] [address] Platelet mean volume (Bld) [Entitic vol] 7.3 fL Low 7.4-12.4 [facility] Comment on above: Performed By: #### L [id number] ####Lifter/Driver: KATERINE BOLTON ([id number])[facility])[address] [place] [address] Platelets (Bld) [#/Vol] 262 10*3/uL Normal 140-440 [facility] Comment on above: Performed By: #### L [id number] ####Lifter/Driver: KATERINE BOLTON ([id number])[facility])[address] [place] [address] RBC (Bld) [#/Vol] 3.56 10*6/uL Low 4.40-5.90 [facility] Comment on above: Performed By: #### L [id number] ####Lifter/Driver: KATERINE BOLTON ([id number])[facility])[address] [place] [address] WBC (Bld) [#/Vol] 11.8 10*3/uL High 3.6-10.7 [facility] Comment on above: Performed By: #### L [id number] ####Lifter/Driver: KATERINE BOLTON ([id number])[facility])[address] [place] [address] CBC panel Auto (Bld)Ordered By: Caroline Castro on 03-05-2023 Erythrocyte distribution width (RBC) [Ratio] 17.5 % High 11.5 - 14.5 % [facility] Hematocrit (Bld) [Volume fraction] 28.8 % Low 40.0 - 52.0 % [facility] Hemoglobin (Bld) [Mass/Vol] 9.5 g/dL Low 13.0 - 18.0 g/dL [facility] Interpretation and review of laboratory results Abnormal [facility] MCH (RBC) [Entitic mass] 26.6 pg 26.0 - 34.0 pg [facility] MCHC (RBC) [Mass/Vol] 32.8 % 32.0 - 36.0 % [facility] MCV (RBC) [Entitic vol] 81.0 fL 80.0 - 98.0 fL [facility] Platelet mean volume (Bld) [Entitic vol] 7.3 fL Low 7.4 - 12.4 fL [facility] Platelets (Bld) [#/Vol] 262 10*3/uL 140 - 440 10*3/uL [facility] RBC (Bld) [#/Vol] 3.56 10*6/uL Low 4.40 - 5.90 10*6/uL [facility] WBC (Bld) [#/Vol] 11.8 10*3/uL High 3.6 - 10.7 10*3/uL [facility] Laboratory - Chemistry and C hemistry - challengeon 03-05-2023 Glucose [Mass/Vol] 129 mg/dL High 70 - 100 mg/dL [facility] Glucose [Mass/Vol] 220 mg/dL High 70 - 100 mg/dL [facility] No Panel Informationon 03-05 Interpretation and review of laboratory results Abnormal [facility] Performed by: [facility], [address] [place] [address], [facility] [address] CLIA ID: [id number] [facility] Successful ultrasound-guided right thoracentesis with drainage of 450 milliliters of red fluid. PROCEDURE SUMMARY: - Limited thoracic ultrasound - Ultrasound-guided thoracentesis - Additional procedure(s): None PROCEDURE DETAILS: Pre-procedure Consent: Informed consent for the procedure including risks, benefits and alternatives was obtained and time-out was performed prior to the procedure. Preparation: The site was prepared and draped using maximal sterile barrier technique including cutaneous antisepsis. Anesthesia/sedation None Limited thoracic ultrasound Limited thoracic ultrasound was performed using a curved transducer. A safe window for thoracentesis was identified. Moderate to large pleural effusion was seen on the side of aspiration. The contralateral side was not investigated. Thoracentesis Local anesthesia was administered. Ultrasound was used to pick a safe access site. A permanent image was stored. The pleural space was accessed and fluid return confirmed position. The fluid was drained. Catheter placed: 5F Yueh Closure The catheter was removed. A sterile bandage was applied. Post-drainage hemithorax findings: Minimal effusion Additional Details Additional description of procedure: None Equipment details: None Specimens removed: Pleural fluid Estimated blood loss (mL): Less than 10 Report Dictated on Electronically Signed By: Kamilah Ho PA-C Electronically Signed Date/Time: 03/05/2023 11:30 AM EST [employer] Patient Name: VIDAL HIRSCH : 1945 Exam Date/Time: 03/05/2023 10:53 Procedure: US GUIDED THORACENTESIS Ordering Provider: WALSH MATTHEW Reason For Exam: PLEURAL EFFUSION PROCEDURE: Ultrasound-guided right thoracentesis PROCEDURAL PERSONNEL Advanced Practice Provider: Kamilah Ho PA-C Attending physician, Pete Lazo M.D., was available in the department if needed. Indication: Pleural effusion Additional clinical history: None Complications: No immediate complications. [facility] [employer] Kamilah Ho PA -C - 03/05/2023 Patient Name: VIDAL KAY : 1945 Exam Date/Time: 03/05/2023 10:53 Procedure: US GUIDED THORACENTESIS Ordering Provider: WALSH MATTHEW Reason For Exam: PLEURAL EFFUSION PROCEDURE: Ultrasound-guided right thoracentesis PROCEDURAL PERSONNEL Advanced Practice Provider: Kamilah Ho PA-C Attending physician, Pete Lazo M.D., was available in the department if needed. Indication: Pleural effusion Additional clinical history: None Complications: No immediate complications. IMPRESSION: Successful ultrasound-guided right thoracentesis with drainage of 450 milliliters of red fluid. PROCEDURE SUMMARY: - Limited thoracic ultrasound - Ultrasound-guided thoracentesis - Additional procedure(s): None PROCEDURE DETAILS: Pre-procedure Consent: Informed consent for the procedure including risks, benefits and alternatives was obtained and time-out was performed prior to the procedure. Preparation: The site was prepared and draped using maximal sterile barrier technique including cutaneous antisepsis. Anesthesia/sedation None Limited thoracic ultrasound Limited thoracic ultrasound was performed using a curved transducer. A safe window for thoracentesis was identified. Moderate to large pleural effusion was seen on the side of aspiration. The contralateral side was not investigated. Thoracentesis Local anesthesia was administered. Ultrasound was used to pick a safe access site. A permanent image was stored. The pleural space was accessed and fluid return confirmed position. The fluid was drained. Catheter placed: 5F Yueh Closure The catheter was removed. A sterile bandage was applied. Post-drainage hemithorax findings: Minimal effusion Additional Details Additional description of procedure: None Equipment details: None Specimens removed: Pleural fluid Estimated blood loss (mL): Less than 10 Report Dictated on Electronically Signed By: Kamilah Ho PA-C Electronically Signed Date/Time: 03/05/2023 11:30 AM EST [facility] Radiology Study observation (narrative) [facility] amaya Interpretation and review of laboratory results Abnormal [facility] Performed by: [facility], [address] [place] [address] CLIA ID: [id number] [facility] No Panel InformationOrdered By: Kamilah Ho on 03-05-2023 [facility] [employer] Work Phone: Progress Noteon 03-05-2023 Progress Note PHYSICAL THERAPY [facility] Treatment Note Name/MRN: Vidal Kay ([id number]) Date of : 1945 Age: 78 y.o. Room/Bed: T1-101/T1-101 A Discharge Recommendation: Home with Assist PRN Equipment Needed: none Prior Level of Function ADL Assistance: Independent Ambulation Assistance: Independent Transfer Assistance: Independent Assessment Pt progressing towards goals. Compliant with sternal precautions. Educated and reviewed P&C exercises and reviewed home walking program. Increase time to ambulate. Did well with stairs. Rec home with assist PRN upon discharge. Subjective Pt in bed, agreeable to PT. Had question about bed mobility with HOB flat. Pain: Pt denies any current pain. Medical Precautions: No active isolations Proper PPE donned/doffed in accordance with facility standards. Fall Risk: Irwin Fall Risk Score: 45 (High Risk) Precautions/Restriction s: Sternal Precautions: move in the tube, 10lb lifting restriction Family/Caregiver Present: spouse and child(john) Objective Ambulation Ambulation 1 Assistive device(s) used: none Assist level: SBA Distance (ft): 450ft Quality of gait: uneven step length, wide LUCHO, slow connor, decrease step length, mild deviated path to right. Transfers/Mobility Sit to stand: Supervision Stand to sit: Supervision X4reps from EOB Device(s) used: none Exercises Exercises Upper Extremity: P&C ex #1-9 all x 10 reps each Comments: Educated pt and family on home walking program. Pt non-compliant with P&C ex, educated and reviewed. Bed Mobility Supine to sit: Min Assist, HOB flat, 1st trial min assist and trial 2 and 3 with training SBA Sit to supine: Min Assist, assist with RLE Rolling to right: SBA Rolling to left: SBA Scooting: SBA HOB flat. Increase time. Bed mobility x 3 reps, family training. Stairs Stairs 1 Assistive device(s) used: none Assist level: SBA # of steps: 8 steps Rails: left Additional factors: initially step to gait and able to progress to reciprocal gait. Plan Continue acute PT per plan of care. Safety/Education Safety Safety Devices in place: call light within reach and left in bed Restraints: No Education Education Given To: patient and spouse Education Provided: PT Goals, Gait Training, Home Exercise Program, Precautions, Transfer Training, Discharge Recommendations, and home walking program Education Method: Verbal Barriers to Learning: None Education Outcome: Verbalized Understanding Outcome Measures AM-PAC AM-PAC Inpatient Mobility Raw Score : 22 AM-PAC Inpatient Mobility Raw Score (No Stairs) : 18 JH-HLM -HLM Score: Walked 250 ft or more (i.e. several laps on unit) Goals Patient Stated Goal: To go home Encounter Problems Encounter Problems (Active) Mobility Patient will ambulate 300 feet with independence and least restrictive device in order to improve safety and independence with mobility. (Progressing) Start: 03/02/23 Expected End: 03/30/23 Patient will ascend and descend 10 stairs with least restrictive device and independence in order to safely negotiate home. (Progressing) Start: 03/02/23 Expected End: 03/30/23 Pain - Adult Transfers Patient will perform bed mobility with independence in order to improve independence and prepare for out of bed mobility. (Progressing) Start: 03/02/23 Expected End: 03/30/23 Patient will complete functional transfer with least restrictive device with independence in order to prepare for ambulation. (Progressing) Start: 03/02/23 Expected End: 03/30/23 Therapy Time Individual Co-treatment Time In 1102 Time Out 1151 Minutes 49 Timed Code Treatment Minutes: 49 Minutes (gait; tp; fa) Theresa Burns PTA [facility] Progress Note --- Attestation signed by Sourav Abbott DO at 03/05/2023 4:08 PM I have personally performed a ipto-it-kryy diagnostic evaluation on this patient on date of service 03/05/23 . History, labs, imaging studies, and electronic medical record have been reviewed by me. This note documented by the []fish housekeeper [x]JULIO reflects my history, exam, and medical decision making. I have reviewed and agree with the care plan. Changes were made in the orders as necessary. ROS documentation was reviewed and negative unless otherwise stated in HPI. Additional pertinent interval history, ROS, and physical exam findings: No overnight events. CTS team requesting TAY zavala today Assessment: CABGx2 02/28/23 CAD s/p CABG AVR 02/28/23 T2DM w/ stress hyperglycemia Plan: Plan for DC home in next 24 hrs. Total critical care time for this patient with life-threatening unstable organ failure, including direct patient contact, management of life support systems, review of data including imaging and labs, and discussions with other team members and physicians at least 35min so far today, excluding procedures. Cardiothoracic Surgery/CCM Progress Note PATIENT NAME: Vidal Kay DATE: 03/05/23 HPI: Vidal Kay is a 78 y.o. male referred by Dr. Baig for severe coronary artery bypass surgery and a aortic valve replacement. He presented as an OP for AVR and CABG x [address] Rodríguez. Surgery/Procedure: 02/28/23 Rodríguez: CABG x 2, Tissue AVR, LEVH Interval History: 03/03/23, POD# 06 Pt continues to get stronger he is currently walking in the halls - Eager to go home today Review of Systems Constitutional: Negative for diaphoresis, fatigue and fever. Respiratory: Negative for cough, shortness of breath and wheezing. Cardiovascular: Negative for chest pain, palpitations and leg swelling. Gastrointestinal: Negative for abdominal distention, constipation and diarrhea. Endocrine: Negative for cold intolerance and heat intolerance. Skin: Negative for color change, pallor and rash. Objective: Last BM Date: 03/04/23 Vitals: BP: 120/54, MAP (mmHg): 75, BP Method: Automatic Heart Rate: 56 Resp: 18 Temp: 36.4 ?C (97.6 ?F), Temp Source: Temporal BMI (Calculated): 26.43 Pacer Wires: V off CXR: Right effusion BMP: Recent Labs 03/02/23234903/04/2333203/05/23416 NA 128* 130* 133* K 4.7 4.6 4.5 CL 96* 97* 101 CO2 20* 24 25 BUN 63* 74* 69* CREATININE 1.74* 1.41* 1.20 CALCIUM 9.2 9.1 9.0 MG 2.7* 2.9* -- CBC: Recent Labs 03/02/23234903/04/2333203/05/23416 WBC 14.3* 12.1* 11.8* HGB 9.6* 9.1* 9.5* HCT 29.0* 27.3* 28.8* PLT 257 235 262 MCV 79.9* 79.4* 81.0 RDW 17.0* 16.9* 17.5* INR: Recent Labs 03/02/232349 INR 1.2* Physical Exam Cardiovascular: Rate and Rhythm: Normal rate and regular rhythm. Heart sounds: Normal heart sounds. No murmur heard. No friction rub. Pulmonary: Effort: Pulmonary effort is normal. Skin: General: Skin is warm and dry. Capillary Refill: Capillary refill takes less than 2 seconds. Findings: Ecchymosis present. No bruising. Neurological: Mental Status: He is alert. Psychiatric: Behavior: Behavior is cooperative. Assessment: CAD s/p CABG Aortic Valve stenosis S/P Tissue AVR Post Op A-fib HTN HLD Former smoker DM II Post operative Pulm Management: Normal Post-operative Course Post-operative Atrial Fibrillation: [x]Yes [] No Plan: Patient Status: Telemetry Right Effusion remains will plan IR guided thoracentesis Cut Pace wires today Continue aspirin, statin and BB on amlodipine for BP Continue PO amio cut to 200 mg daily Eliquis PO for tissue valve Likely DC later today PT/OT: Home with assist PRN (03/05/23) Pulmonary hygiene: IS and Acapella GI prophy: PO protonix DVT prophy:TEDs, SCDs, and Lovenox SubQ Disposition: DC to home with home health tomorrow Central Line: []Yes [x] No Arterial Line: []Yes [x] No Correa: []Yes [x] No Restraints: []Yes [x] No Patient discussed and plan of day developed from multidisciplinary rounds between Cardiothoracic Surgery (Cardiothoracic Surgeon, JULIO) and Critical Care Attending Cardiac Core Medications: ASA, Statin, and BB EF: 60% (02/28/23) Blood Conservation: Transfused post-op. Subscription Clerk: Dr. Baig [facility] US GUIDED THORACENTESISon US GUIDED THORACENTESIS Patient Name: VIDAL WHITE : 1945 Exam Date/Time: 03/05/2023 10:53 Procedure: US GUIDED THORACENTESIS Ordering Provider: WALSH MATTHEW Reason For Exam: PLEURAL EFFUSION PROCEDURE: Ultrasound-guided right thoracentesis PROCEDURAL PERSONNEL Advanced Practice Provider: Kamilah Ho PA-C Attending physician, Pete Lazo M.D., was available in the department if needed. Indication: Pleural effusion Additional clinical history: None Complications: No immediate complications. IMPRESSION: Successful ultrasound-guided right thoracentesis with drainage of 450 milliliters of red fluid. PROCEDURE SUMMARY: - Limited thoracic ultrasound - Ultrasound-guided thoracentesis - Additional procedure(s): None PROCEDURE DETAILS: Pre-procedure Consent: Informed consent for the procedure including risks, benefits and alternatives was obtained and time-out was performed prior to the procedure. Preparation: The site was prepared and draped using maximal sterile barrier technique including cutaneous antisepsis. Anesthesia/sedation None Limited thoracic ultrasound Limited thoracic ultrasound was performed using a curved transducer. A safe window for thoracentesis was identified. Moderate to large pleural effusion was seen on the side of aspiration. The contralateral side was not investigated. Thoracentesis Local anesthesia was administered. Ultrasound was used to pick a safe access site. A permanent image was stored. The pleural space was accessed and fluid return confirmed position. The fluid was drained. Catheter placed: 5F Yueh Closure The catheter was removed. A sterile bandage was applied. Post-drainage hemithorax findings: Minimal effusion Additional Details Additional description of procedure: None Equipment details: None Specimens removed: Pleural fluid Estimated blood loss (mL): Less than 10 Report Dictated on Electronically Signed By: Kamilah Ho PA-C Electronically Signed Date/Time: 03/05/2023 11:30 AM [facility] XR CHEST 1 VIEWon 03-05-2023 XR CHEST 1 VIEW Patient Name: VIDAL HIRSCH : 1945 Exam Date/Time: 03/05/2023 14:19 Procedure: XR CHEST 1 VIEW Ordering Provider: AWLSH MATTHEW Reason For Exam: PLEURAL EFFUSION EXAMINATION: CHEST RADIOGRAPH (SINGLE VIEW AP OR PA) Clinical History: PLEURAL EFFUSION Comparison: Chest radiographs 03/05/2023 and 03/04/2023 RESULT: See impression IMPRESSION: Lines, tubes, and devices: None. Lungs and pleura: Bibasilar opacities with blunting of the costophrenic angles compatible with small effusions with associated atelectasis. Superimposed infectious/inflammatory process in the right lung base is not excluded. Prominence of the central vasculature with peripheral reticular opacities suggest edema. Findings are similar compared to prior radiograph. No sizable pneumothorax. Cardiomediastinal silhouette: Stable cardiomediastinal silhouette.Atherosclero tic calcifications of the aortic arch changes of median sternotomy and aortic valve replacement. Other: Degenerative changes of the spine and shoulders Report Dictated on Electronically Signed By: Charles Beltran MD Electronically Signed Date/Time: 03/05/2023 1:59 PM EST Normal [facility] XR CHEST 1 VIEW Patient Name: VIDAL HIRSCH : 1945 [id number] Exam Date/Time: 03/05/2023 05:16 Procedure: XR CHEST 1 VIEW Ordering Provider: WALSH MATTHEW Reason For Exam: Shortness of breath EXAM TYPE: RADIOLOGIC EXAMINATION, CHEST, SINGLE VIEW FRONTAL (CXR SINGLE VIEW) EXAM DATE AND TIME: 03/05/2023 5:16 AM EST INDICATION: Respiratory distress COMPARISON: 03/04/2023 TECHNIQUE: A single frontal view of the thorax was obtained and reviewed. Special views: None. IMPRESSION: 1. Lines/Tubes/Devices/Clifton dware: Leads, sternotomy wires noted. Please confirm position and function of any catheters or attempted catheters clinically. 2. Lungs: Abnormal. Persistent infiltrate densities and volume loss especially right lung, mid and lower lobes. Bilateral effusions. No significant change in appearance of lungs given differences in technique. Consider CHF or pneumonia.. Limited due to portable technique. Consider follow-up with PA and lateral chest for persistent symptoms. 3. Pleura: See above. No significant pneumothorax. 4. Heart and mediastinum: Limited due to technique. 5. Upper abdomen: No acute process seen. 6. Thorax:No acute bony process Report Dictated on Electronically Signed By: Singh Villalobos MD Electronically Signed Date/Time: 03/05/2023 7:13 AM EST Normal [facility] XR Chest Single viewon 03-05 Lines, tubes, and devices: None. Lungs and pleura: Bibasilar opacities with blunting of the costophrenic angles compatible with small effusions with associated atelectasis. Superimposed infectious/inflammatory process in the right lung base is not excluded. Prominence of the central vasculature with peripheral reticular opacities suggest edema. Findings are similar compared to prior radiograph. No sizable pneumothorax. Cardiomediastinal silhouette: Stable cardiomediastinal silhouette.Atherosclero tic calcifications of the aortic arch changes of median sternotomy and aortic valve replacement. Other: Degenerative changes of the spine and shoulders Report Dictated on Electronically Signed By: Charles Beltran MD Electronically Signed Date/Time: 03/05/2023 1:59 PM [facility] RADIOLOGY SYSTEM Patient Name: VIDAL HIRSCH : 1945 Exam Date/Time: 03/05/2023 14:19 Procedure: XR CHEST 1 VIEW Ordering Provider: WALSH MATTHEW Reason For Exam: PLEURAL EFFUSION EXAMINATION: CHEST RADIOGRAPH (SINGLE VIEW AP OR PA) Clinical History: PLEURAL EFFUSION Comparison: Chest radiographs 03/05/2023 and 03/04/2023 RESULT: See impression [facility] Charles Beltran MD - 03/05/2023 Patient Name: VIDAL KAY : 1945 Exam Date/Time: 03/05/2023 14:19 Procedure: XR CHEST 1 VIEW Ordering Provider: WALSH MATTHEW Reason For Exam: PLEURAL EFFUSION EXAMINATION: CHEST RADIOGRAPH (SINGLE VIEW AP OR PA) Clinical History: PLEURAL EFFUSION Comparison: Chest radiographs 03/05/2023 and 03/04/2023 RESULT: See impression IMPRESSION: Lines, tubes, and devices: None. Lungs and pleura: Bibasilar opacities with blunting of the costophrenic angles compatible with small effusions with associated atelectasis. Superimposed infectious/inflammatory process in the right lung base is not excluded. Prominence of the central vasculature with peripheral reticular opacities suggest edema. Findings are similar compared to prior radiograph. No sizable pneumothorax. Cardiomediastinal silhouette: Stable cardiomediastinal silhouette.Atherosclero tic calcifications of the aortic arch changes of median sternotomy and aortic valve replacement. Other: Degenerative changes of the spine and shoulders Report Dictated on Electronically Signed By: Charles Beltran MD Electronically Signed Date/Time: 03/05/2023 1:59 PM EST [facility] Radiology Study observation (narrative) [facility] alth 1. Lines/Tubes/Devices/Clifton dware: Leads, sternotomy wires noted. Please confirm position and function of any catheters or attempted catheters clinically. 2. Lungs: Abnormal. Persistent infiltrate densities and volume loss especially right lung, mid and lower lobes. Bilateral effusions. No significant change in appearance of lungs given differences in technique. Consider CHF or pneumonia.. Limited due to portable technique. Consider follow-up with PA and lateral chest for persistent symptoms. 3. Pleura: See above. No significant pneumothorax. 4. Heart and mediastinum: Limited due to technique. 5. Upper abdomen: No acute process seen. 6. Thorax:No acute bony process Report Dictated on Electronically Signed By: Singh Villalobos MD Electronically Signed Date/Time: 03/05/2023 7:13 AM EST [employer] Patient Name: VIDAL HIRSCH : 1945 Exam Date/Time: 03/05/2023 05:16 Procedure: XR CHEST 1 VIEW Ordering Provider: WALSH MATTHEW Reason For Exam: Shortness of breath EXAM TYPE: RADIOLOGIC EXAMINATION, CHEST, SINGLE VIEW FRONTAL (CXR SINGLE VIEW) EXAM DATE AND TIME: 03/05/2023 5:16 AM EST INDICATION: Respiratory distress COMPARISON: 03/04/2023 TECHNIQUE: A single frontal view of the thorax was obtained and reviewed. Special views: None. [employer] Singh Villalobos MD - 03/05/2023 Patient Name: VIDAL KAY : 1945 Exam Date/Time: 03/05/2023 05:16 Procedure: XR CHEST 1 VIEW Ordering Provider: WALSH MATTHEW Reason For Exam: Shortness of breath EXAM TYPE: RADIOLOGIC EXAMINATION, CHEST, SINGLE VIEW FRONTAL (CXR SINGLE VIEW) EXAM DATE AND TIME: 03/05/2023 5:16 AM EST INDICATION: Respiratory distress COMPARISON: 03/04/2023 TECHNIQUE: A single frontal view of the thorax was obtained and reviewed. Special views: None. IMPRESSION: 1. Lines/Tubes/Devices/Clifton dware: Leads, sternotomy wires noted. Please confirm position and function of any catheters or attempted catheters clinically. 2. Lungs: Abnormal. Persistent infiltrate densities and volume loss especially right lung, mid and lower lobes. Bilateral effusions. No significant change in appearance of lungs given differences in technique. Consider CHF or pneumonia.. Limited due to portable technique. Consider follow-up with PA and lateral chest for persistent symptoms. 3. Pleura: See above. No significant pneumothorax. 4. Heart and mediastinum: Limited due to technique. 5. Upper abdomen: No acute process seen. 6. Thorax:No acute bony process Report Dictated on Electronically Signed By: Singh Villalobos MD Electronically Signed Date/Time: 03/05/2023 7:13 AM EST [facility] Radiology Study observation (narrative) [facility] XR Chest Single viewOrdered By: Charles Beltran on 03-05-2023 [employer] Phone: XR Chest Single viewOrdered By: Singh Villalobos on 03-05-2023 [employer] Phone: 36on 03-04-2023 36 Name of caller: Lilian Contact phone number: [phone] Relationship to Patient: patient and spouse/SO Provider: Rodríguez Practice: Cardiothoracic Surgery Chief Complaint/Reason for Call: patients spouse states patient had surgery on 02/28/23. Is asking possibly when patient will be going home. Staff in the hospital informed patient that they do not know. Please advise Best time of day caller can be reached: anytime Patient advised that office/PCP has 24-48 business hours to return their call: N/A Normal [employer] [facility] BASIC METABOLIC PANELon 11-0 6-2023 Anion gap [Moles/Vol] 8 mmol/L Normal 3-13 [facility] Comment on above: Performed By: #### L AB103, LAB15 ####Lifter/Driver: KATERINE BOLTON ([phone])[facility] ([facility])[address] [place] [address] Calcium [Mass/Vol] 9.1 mg/dL Normal 8.4-10.4 [facility] Comment on above: Performed By: #### L AB103, LAB15 ####Lifter/Driver: KATERINE BOLTON ([phone])[facility] ([facility])[address] [place] [address] Chloride [Moles/Vol] 97 mmol/L Low 98-107 [facility] Comment on above: Performed By: #### L AB103, LAB15 ####Lifter/Driver: KATERINE BOLTON ([phone])[facility] [place] [address] CO2 [Moles/Vol] 24 mmol/L Normal 22-30 [facility] Comment on above: Performed By: #### L AB103, LAB15 ####Lifter/Driver: KATERINE BOLTON ([phone])[facility] ([facility])[address] [place] [address] Creatinine [Mass/Vol] 1.41 mg/dL High 0.66-1.25 [facility] Comment on above: Performed By: #### L AB103, LAB15 ####Lifter/Driver: KATERINE BOLTON ([id number])[facility] ([facility])[address] [place] [address] [place] GLOMERULAR FILTRATION RATE ML/MIN/1.73 SQ M.PREDICTED 51.0 mL/min/1.73m*2 Low >60.0 [facility] Comment on above: Result Comment: Calc ulation based on the Chronic Kidney Disease Epidemiology Collaboration (CKD-EPI) equation refit without adjustment for race Performed By: #### L AB103, LAB15 ####Lifter/Driver: KATERINE BOLTON ([id number])[facility] [place] [address] Glucose [Mass/Vol] 93 mg/dL Normal 70-100 [facility] Comment on above: Performed By: #### L AB103, LAB15 ####Lifter/Driver: KATERINE BOLTON ([phone])[facility] ([facility])[address] [place] [address] Potassium [Moles/Vol] 4.6 mmol/L Normal 3.5-5.1 [facility] Comment on above: Performed By: #### L AB103, LAB15 ####Lifter/Driver: KATERINE BOLTON ([phone])[facility] [facility])[address] [place] [address] Sodium [Moles/Vol] 130 mmol/L Low 135-145 [facility] Comment on above: Performed By: #### L AB103, LAB15 ####Lifter/Driver: KATERINE BOLTON ([phone])[facility] ([facility])[address] [place] [address] Urea nitrogen [Mass/Vol] 74 mg/dL High 9-20 [facility] Comment on above: Performed By: #### L AB103, LAB15 ####Lifter/Driver: KATERINE BOLTON ([id number])[facility] ([facility])[address] [place] [address] Basic metabolic 1998 panelon 03-04-2023 Anion gap [Moles/Vol] 8 mmol/L 3 - 13 mmol/L [facility] Calcium [Mass/Vol] 9.1 mg/dL 8.4 - 10. 4 mg/dL [facility] Chloride [Moles/Vol] 97 mmol/L Low 98 - 10 7 mmol/L [facility] CO2 [Moles/Vol] 24 mmol/L 22 - 30 mmol/L [facility] Creatinine [Mass/Vol] 1.41 mg/dL High 0.66 - 1.25 mg/dL [facility] GFR/1.73 sq M.predicted MDRD (S/P/Bld) [Vol rate/Area] 51.0 mL/min/{1.73_m2} Low - PINF [facility] Comment on above: Calculation based on the Chronic Kidney Disease Epidemiology Collaboration (CKD-EPI) equation refit without adjustment for race Glucose [Mass/Vol] 93 mg/dL 70 - 100 mg/dL [facility] Potassium [Moles/Vol] 4.6 mmol/L 3.5 - 5.1 mmol/L [facility] Sodium [Moles/Vol] 130 mmol/L Low 135 - 145 mmol/L [facility] Urea nitrogen [Mass/Vol] 74 mg/dL High 9 - 20 mg/dL [facility] CBC (HEMOGRAM)on 03-04-2023 Erythrocyte distribution width (RBC) [Ratio] 16.9 % High 11.5-14.5 [facility] Comment on above: Performed By: #### L [id number] ####Lifter/Driver: KATERINE BOLTON ([phone])[facility])[address] [place] [address] ERYTHROCYTE MEAN CORPUSCULAR HEMOGLOBIN CONCENTRATION (G/DL) BY AUTOMATED 33.3 % Normal 32.0-36.0 [facility] Comment on above: Performed By: #### L [id number] ####Lifter/Driver: KATERINE BOLTON ([id number])[facility])[address] [place] [address] Hematocrit (Bld) [Volume fraction] 27.3 % Low 40.0-52.0 [facility] Comment on above: Performed By: #### L [id number] ####Lifter/Driver: KATERINE BOLTON ([phone])[facility])[address] [place] [address] Hemoglobin (Bld) [Mass/Vol] 9.1 g/dL Low 13.0-18.0 [facility] Comment on above: Performed By: #### L [id number] ####Lifter/Driver: KATERINE BOLTON ([id number])[address] MCH (RBC) [Entitic mass] 26.4 pg Normal 26.0-34.0 [facility] Comment on above: Performed By: #### L [id number] ####Lifter/Driver: KATERINE BOLTON ([id number])[facility])[address] [place] [address] MCV (RBC) [Entitic vol] 79.4 fL Low 80.0-98.0 [facility] Comment on above: Performed By: #### L [id number] ####Lifter/Driver: KATERINE BOLTON ([id number])[facility])[address] [place] [address] Platelet mean volume (Bld) [Entitic vol] 7.4 fL Normal 7.4-12.4 [facility] Comment on above: Performed By: #### L [id number] ####Lifter/Driver: KATERINE BOLTON ([id number])[facility])[address] [place] [address] Platelets (Bld) [#/Vol] 235 10*3/uL Normal 140-440 [facility] Comment on above: Performed By: #### L [id number] ####Lifter/Driver: KATERINE BOLTON ([id number])[facility])[address] [place] [address] RBC (Bld) [#/Vol] 3.44 10*6/uL Low 4.40-5.90 [facility] Comment on above: Performed By: #### L [id number] ####Lifter/Driver: KATERINE BOLTON ([id number])[facility])[address] [place] [address] WBC (Bld) [#/Vol] 12.1 10*3/uL High 3.6-10.7 [facility] Comment on above: Performed By: #### L [id number] ####Lifter/Driver: KATERINE BOLTON ([phone])[facility])[address] [place] [address] CBC panel Auto (Bld)on 03-04 Erythrocyte distribution width (RBC) [Ratio] 16.9 % High 11.5 - 14.5 % [facility] Hematocrit (Bld) [Volume fraction] 27.3 % Low 40.0 - 52.0 % [facility] Hemoglobin (Bld) [Mass/Vol] 9.1 g/dL Low 13.0 - 18.0 g/dL [facility] Interpretation and review of laboratory results Abnormal [facility] MCH (RBC) [Entitic mass] 26.4 pg 26.0 - 34.0 pg [facility] MCHC (RBC) [Mass/Vol] 33.3 % 32.0 - 36.0 % [facility] MCV (RBC) [Entitic vol] 79.4 fL Low 80.0 - 98.0 fL [facility] Platelet mean volume (Bld) [Entitic vol] 7.4 fL 7.4 - 12.4 fL [facility] Platelets (Bld) [#/Vol] 235 10*3/uL 140 - 440 10*3/uL [facility] RBC (Bld) [#/Vol] 3.44 10*6/uL Low 4.40 - 5.90 10*6/uL [facility] WBC (Bld) [#/Vol] 12.1 10*3/uL High 3.6 - 10.7 10*3/uL [facility] IDNon 03-04-2023 IDN The patient is Moderately Stable - Low risk of patient condition declining or worsening The patient's goals for the shift include sleep The clinical goals for the shift include keep pt safe Over the shift, the patient did not make progress toward the following goals. Barriers to progression include pt not understanding his plan of care. Recommendations to address these barriers include educating pt about his plan of care. Normal [facility] Laboratory - Chemistry and C hemistry - challengeon 03-04-2023 Glucose [Mass/Vol] 244 mg/dL High 70 - 100 mg/dL [facility] Glucose [Mass/Vol] 390 mg/dL High 70 - 100 mg/dL [facility] Glucose [Mass/Vol] 258 mg/dL High 70 - 100 mg/dL [facility] Glucose [Mass/Vol] 137 mg/dL High 70 - 100 mg/dL [facility] Magnesium [Mass/Vol] 2.9 mg/dL High 1.6 - 2 .3 mg/dL [facility] MAGNESIUMon 03-04-2023 Magnesium [Mass/Vol] 2.9 mg/dL High 1.6-2.3 [facility] Comment on above: Performed By: #### L AB103, LAB15 ####Lifter/Driver: KATERINE BOLTON ([id number])[facility] [employer] [facility] ([facility])[address] [place] [address] No Panel Informationon 03-04 Interpretation and review of laboratory results Abnormal [employer] Performed by: [facility], [address] [place] [id number] CLIA ID: [id number] [employer] Interpretation and review of laboratory results Abnormal [facility] Performed by: [facility], [address] [place] [id number] CLIA ID: [id number] [employer] Interpretation and review of laboratory results Abnormal [employer] Performed by: [facility], [address] [place] [id number] CLIA ID: [id number] [employer] Interpretation and review of laboratory results Abnormal [employer] Performed by: [facility], [address] [place] [id number] CLIA ID: [id number] [employer] Interpretation and review of laboratory results Abnormal [employer] Progress Noteon 03-04-2023 Progress Note Department of Refuse Laborer al Medicine Division of Endocrinology, Diabetes, & Metabolism Endocrinology Note Patient Name: Vidal Kay : 1945 AGE: 78 y.o. Room/Bed: [facility] A Admission Date: 02/28/2023 Visit Date: 03/04/2023 Reason for Endocrine Consult: post op heart Provider/Team Requesting Consult: cts PCP: Felix Bill [employer] [employer] Cox[employer]: No ASSESSMENT: DM2 with hyperglycemia without long term care administrator insulin Cabgx2, AVR CAD/ HTN/HLD YELENA - Improving PLAN: Current sugars are improving Continue Lantus 30 units at bedtime Continue Humalog 10 units with meals Continue moderate dose scale Humalog ICU goal <180 GMF goal <150 POCT BG Q 1 Hypoglycemia per protocol Carb controlled diet ANTICIPATED ENDOCRINE HOME GOING RECOMMENDATIONS: Optimized for Discharge from Endocrine standpoint: No Home Going Endocrine Rx Recommendations-- Resume Farxiga 10 mg daily if renal functions show gfr >45 Lantus dose tbd Glipizide tbd Outpt Follow Up-- Pcp and states he sees katelyn endocrine SUBJECTIVE/HPI: CHIEF COMPLAINT: No chief complaint on file. Cabgx2, AVR; History of DM2 managed outpatient by PCP Type of DM: 2 Onset of DM: 7 years ago Home DM Medication Regimen: farxiga 10, glipizide 10 daily, lantus pens 15 hs DM control (last A1c/glucose data): Lab Results Component Value Date HGBA1C 7.3 (H) 02/19/2023 Does wear dexcom g6- on right arm- no lifter/driver with him Glucose Date/Time Value Ref Range Status 03/04/2023 08:39 AM 137 (H) 70 - 100 mg/dL Final 03/03/2023 08:57 PM 167 (H) 70 - 100 mg/dL Final 03/03/2023 06:18 PM 276 (H) 70 - 100 mg/dL Final 03/03/2023 11:42 AM 249 (H) 70 - 100 mg/dL Final 03/02/2023 08:47 PM 293 (H) 70 - 100 mg/dL Final 03/02/2023 06:56 PM 325 (H) 70 - 100 mg/dL Final Patient seen at bedside with his Doing well overall Able to ambulate Appetite is fair No nausea or vomiting today. Does have constipation Review of Systems All other systems reviewed and are negative. ROS negative except for those mentioned in HPI. OBJECTIVE: Vitals: 03/04/23 0600 03/04/23 0700 03/04/23 0800 03/04/23 0939 BP: 126/60 BP Location: Patient Position: Pulse: 57 57 67 Resp: Temp: 36.5 ?C (97.7 ?F) TempSrc: Temporal SpO2: 92% 92% Weight: Height: Physical Exam Vitals and nursing note reviewed. Constitutional: General: He is not in acute distress. Comments: Sitting up in the bed. Lean build. HENT: Head: Normocephalic. Mouth/Throat: Mouth: Mucous membranes are moist. Eyes: Extraocular Movements: Extraocular movements intact. Cardiovascular: Rate and Rhythm: Normal rate and regular rhythm. Heart sounds: Normal heart sounds. Comments: Intact incision SR on telemetry. Pulmonary: Effort: Pulmonary effort is normal. Skin: General: Skin is warm and dry. Neurological: General: No focal deficit present. Mental Status: He is alert and oriented to person, place, and time. Psychiatric: Mood and Affect: Mood normal. 24 hour intake/output: Intake/Output Summary (Last 24 hours) at 03/04/2023 1006 Last data filed at 03/04/2023 0600 Gross per 24 hour Intake 1060 ml Output 980 ml Net 80 ml Diet: Adult diet Regular; No Added Salt (3-4 gm) Medications (as per EMR): HomeMeds: Current Outpatient Medications Medication Instructions ascorbic acid (VITAMIN C) 1,000 mg, Oral, Daily aspirin 81 mg, Oral, Daily dapagliflozin (FARXIGA) 10 mg, Oral, Daily ferrous sulfate 325 (65 Fe) MG tablet 1 tablet, Oral, Daily glipiZIDE (GLUCOTROL) 10 mg, Oral, Daily glucosamine-chondroitin 500-400 MG tablet 1 tablet, Oral, 3 times daily insulin glargine (LANTUS) 15 Units, SubCUTAneous, Nightly mesalamine (LIALDA) 2,400 mg, Oral, Daily with breakfast, Do not crush, chew, or split. Multiple Vitamins-Minerals (multivitamin with minerals) tablet 1 tablet, Oral, Daily mupirocin (Bactroban) 2 % ointment Apply liberal amount per nostril the night before surgery and then again the morning of surgery ramipril (ALTACE) 5 mg, Oral, Daily Scheduled Meds:acetaminophen, 1,000 mg, Oral, q8h amiodarone, 400 mg, Oral, BID amLODIPine, 10 mg, Oral, Daily apixaban, 5 mg, Oral, BID aspirin, 81 mg, Oral, Daily chlorhexidine, 15 mL, Mouth/Throat, BID ferrous sulfate, 325 mg, Oral, Daily insulin glargine, 30 Units, SubCUTAneous, Nightly insulin lispro, 0-12 Units, SubCUTAneous, TID WC insulin lispro, 10 Units, SubCUTAneous, TID WC Lidocaine, 1 patch, Topical, Daily metoprolol tartrate, 25 mg, Oral, BID pantoprazole, 40 mg, Oral, qAM AC polyethylene glycol (PEG) 3350, 17 g, Oral, Daily rosuvastatin, 40 mg, Oral, Nightly senna-docusate sodium, 2 tablet, Oral, Nightly Continuous Infusions: PRN Meds:PRN medications: dextrose, dextrose, glucagon (rDNA), glucose, magnesium sulfate OR magnesium sulfate, ondansetron ODT OR ondansetron, oxyCODONE OR oxyCODONE, potassium chlorid (more content not included)... Normal [facility] Progress Note --- Attestation signed by Sourav Abbott DO at 03/04/2023 4:24 PM I have personally performed a pchc-eb-swhl diagnostic evaluation on this patient on date of service 03/04/23. History, labs, imaging studies, and electronic medical record have been reviewed by me. This note documented by the []fish housekeeper [x]JULIO reflects my history, exam, and medical decision making. I have reviewed and agree with the care plan. Changes were made in the orders as necessary. ROS documentation was reviewed and negative unless otherwise stated in HPI. Additional pertinent interval history, ROS, and physical exam findings: Hosp day = 4 No overnight events. Has some chest discomfort with ambulation but otherwise no complaints. Wants to go home. Sitting in bedside chair with family present. Nonlabored. Wearing a baseball cap on his head. Appears comfortable. No diaphoresis. Assessment: CABGx2 02/28/23 CAD s/p CABG AVR 02/28/23 T2DM w/ stress hyperglycemia Plan: Continue cardiac meds as per JULIO note. Eliquis initiation. Ambulate and ongoing PT/OT. Monitor PO intake. Total critical care time for this patient with life-threatening unstable organ failure, including direct patient contact, management of life support systems, review of data including imaging and labs, and discussions with other team members and physicians at least 35min so far today, excluding procedures. Cardiothoracic Surgery/CCM Progress Note PATIENT NAME: Vidal Kay DATE: 03/04/23 HPI: Vidal Kay is a 78 y.o. male referred by Dr. Baig for severe coronary artery bypass surgery and a aortic valve replacement. He presented as an OP for AVR and CABG x [address] Rodríguez. Surgery/Procedure: 02/28/23 Rodríguez: CABG x 2, Tissue AVR, LEVH Interval History: 03/03/23, POD# 05 No changes overnight, pt eager to go home NANDO, CXR right effusion, creat down trending, HGB 9.1 Review of Systems Constitutional: Negative for diaphoresis, fatigue and fever. Respiratory: Negative for cough, shortness of breath and wheezing. Cardiovascular: Positive for chest pain. Negative for palpitations and leg swelling. Gastrointestinal: Negative for abdominal distention, constipation and diarrhea. Endocrine: Negative for cold intolerance and heat intolerance. Skin: Negative for color change, pallor and rash. Objective: Last BM Date: 03/03/23 Vitals: BP: 118/57, MAP (mmHg): 75, BP Method: Automatic Heart Rate: 57 Resp: 14 Temp: 36.9 ?C (98.5 ?F), Temp Source: Oral BMI (Calculated): 25.34 Pacer Wires: V off CXR: BMP: Recent Labs 03/02/231003/02/23234903/04/23 0333 NA 132* 128* 130* K 4.7 4.7 4.6 CL 98 96* 97* CO2 20* 20* 24 BUN 40* 63* 74* CREATININE 1.62* 1.74* 1.41* CALCIUM 9.5 9.2 9.1 MG 2.4* 2.7* 2.9* CBC: Recent Labs 03/02/231003/02/230 03/04/23 0333 WBC 12.0* 14.3* 12.1* HGB 9.4* 9.6* 9.1* HCT 28.0* 29.0* 27.3* PLT 215 257 235 MCV 80.5 79.9* 79.4* RDW 16.8* 17.0* 16.9* INR: Recent Labs 03/02/23 0011 03/02/23 2350 INR 1.2* 1.2* Physical Exam Cardiovascular: Rate and Rhythm: Normal rate and regular rhythm. Heart sounds: Normal heart sounds. No murmur heard. No friction rub. Pulmonary: Effort: Pulmonary effort is normal. Skin: General: Skin is warm and dry. Capillary Refill: Capillary refill takes less than 2 seconds. Findings: Ecchymosis present. No bruising. Neurological: Mental Status: He is alert. Psychiatric: Behavior: Behavior is cooperative. Assessment: CAD s/p CABG Aortic Valve stenosis S/P Tissue AVR HTN HLD Former smoker DM II Post operative Pulm Management: Normal Post-operative Course Post-operative Atrial Fibrillation: [x]Yes [] No Plan: Patient Status: Telemetry Right Effusion noted on CXR consider thoracentesis prior to DC Cut Pace wires prior to DC Continue aspirin, statin and BB on amlodipine for BP Continue PO amio Creat downtrend allow auto diuresis Start Eliquis PO for tissue valve Wean O2 as able, goal SpO2>92%. PT/OT: Home with assist PRN (03/02/23) Pulmonary hygiene: IS and Acapella GI prophy: PO protonix DVT prophy:TEDs, SCDs, and Lovenox SubQ Disposition: DC to home with home health tomorrow Central Line: []Yes [x] No Arterial Line: []Yes [x] No Correa: []Yes [x] No Restraints: []Yes [x] No Patient discussed and plan of day developed from multidisciplinary rounds between Cardiothoracic Surgery (Cardiothoracic Surgeon, JULIO) and Critical Care Attending Cardiac Core Medications: ASA, Statin, and BB EF: 60% (02/28/23) Blood Conservation: Transfused post-op. Subscription Clerk: Dr. Baig Electronically signed by VINICIO Friend CNP on (more content not included)... [facility] XR CHEST 1 VIEWon 03-04-2023 XR CHEST 1 VIEW Patient Name: VIDAL HIRSCH : 1945 Exam Date/Time: 03/04/2023 05:14 Procedure: XR CHEST 1 VIEW Ordering Provider: WALSH MATTHEW Reason For Exam: Shortness of breath CHEST X-RAY CLINICAL INDICATION: Shortness of breath TECHNIQUE: AP COMPARISON: 03/03/2023 FINDINGS: Quality: Unremarkable. Lines: None Cardiomediastinal Silhouette: The cardiomediastinal silhouette is stable compared to prior exam.. Postsurgical changes compatible with median sternotomy and cardiac surgery. Lungs: Perihilar vascular congestion is noted with interstitial opacities, compatible with pulmonary edema. Large right and small left-sided pleural effusions are noted with associated passive atelectasis, stable from prior examination.. No definite evidence of pneumothorax. Soft tissue: The soft tissue structures appear unremarkable. Bones: No acute osseous process identified. IMPRESSION: See findings. Report Dictated on Electronically Signed By: Felix Adamson MD Electronically Signed Date/Time: 03/04/2023 6:14 AM [facility] XR Chest Single viewon 03-04 See findings. Report Dictated on Electronically Signed By: Felix Adamson MD Electronically Signed Date/Time: 03/04/2023 6:14 AM [facility] [employer] Patient Name: VIDAL HIRSCH : 1945 [id number] Exam Date/Time: 03/04/2023 05:14 Procedure: XR CHEST 1 VIEW Ordering Provider: WALSH MATTHEW Reason For Exam: Shortness of breath CHEST X-RAY CLINICAL INDICATION: Shortness of breath TECHNIQUE: AP COMPARISON: 03/03/2023 FINDINGS: Quality: Unremarkable. Lines: None Cardiomediastinal Silhouette: The cardiomediastinal silhouette is stable compared to prior exam.. Postsurgical changes compatible with median sternotomy and cardiac surgery. Lungs: Perihilar vascular congestion is noted with interstitial opacities, compatible with pulmonary edema. Large right and small left-sided pleural effusions are noted with associated passive atelectasis, stable from prior examination.. No definite evidence of pneumothorax. Soft tissue: The soft tissue structures appear unremarkable. Bones: No acute osseous process identified. [facility] Felix Adamson MD - 03/04/2023 Patient Name: VIDAL KAY : 1945 [facility]#: [id number] Exam Date/Time: 03/04/2023 05:14 Procedure: XR CHEST 1 VIEW Ordering Provider: WALSH MATTHEW Reason For Exam: Shortness of breath CHEST X-RAY CLINICAL INDICATION: Shortness of breath TECHNIQUE: AP COMPARISON: 03/03/2023 FINDINGS: Quality: Unremarkable. Lines: None Cardiomediastinal Silhouette: The cardiomediastinal silhouette is stable compared to prior exam.. Postsurgical changes compatible with median sternotomy and cardiac surgery. Lungs: Perihilar vascular congestion is noted with interstitial opacities, compatible with pulmonary edema. Large right and small left-sided pleural effusions are noted with associated passive atelectasis, stable from prior examination.. No definite evidence of pneumothorax. Soft tissue: The soft tissue structures appear unremarkable. Bones: No acute osseous process identified. IMPRESSION: See findings. Report Dictated on Electronically Signed By: Felix Adamson MD Electronically Signed Date/Time: 03/04/2023 6:14 AM EST [facility] Radiology Study observation (narrative) [facility] XR Chest Single viewOrdered By: Felix Adamson on 03-04-2023 [facility] [employer] Work Phone: BASIC METABOLIC PANELon 11-0 Anion gap [Moles/Vol] 11 mmol/L Normal 3-13 [facility] Comment on above: Performed By: #### L AB103, LAB15 ####Lifter/Driver: KATERINE BOLTON ([phone])[facility] [place] [address] Calcium [Mass/Vol] 9.2 mg/dL Normal 8.4-10.4 [facility] Comment on above: Performed By: #### L AB103, LAB15 ####Lifter/Driver: KATERINE BOLTON ([phone])[facility] ([facility])[address] [place] [address] Chloride [Moles/Vol] 96 mmol/L Low 98-107 [facility] Comment on above: Performed By: #### L AB103, LAB15 ####Lifter/Driver: KATERINE BOLTON ([phone])[facility])[address] [place] [address] CO2 [Moles/Vol] 20 mmol/L Low 22-30 [facility] Comment on above: Performed By: #### L AB103, LAB15 ####Lifter/Driver: KATERINE BOLTON ([phone])[facility] ([facility])[address] [place] [address] Creatinine [Mass/Vol] 1.74 mg/dL High 0.66-1.25 [facility] Comment on above: Performed By: #### L AB103, LAB15 ####Lifter/Driver: KATERINE BOLTON ([phone])[facility] ([facility])[address] [place] [address] GLOMERULAR FILTRATION RATE ML/MIN/1.73 SQ M.PREDICTED 39.6 mL/min/1.73m*2 Low >60.0 [facility] Comment on above: Result Comment: Calc ulation based on the Chronic Kidney Disease Epidemiology Collaboration (CKD-EPI) equation refit without adjustment for race Performed By: #### L AB103, LAB15 ####Lifter/Driver: KATERINE BOLTON ([phone])[facility] ([facility])[address] [place] [address] Glucose [Mass/Vol] 144 mg/dL High 70-100 [facility] Comment on above: Performed By: #### L AB103, LAB15 ####Lifter/Driver: KATERINE BOLTON ([phone])[facility] ([facility])[address] [place] [address] [place] Potassium [Moles/Vol] 4.7 mmol/L Normal 3.5-5.1 [facility] Comment on above: Performed By: #### L AB103, LAB15 ####Lifter/Driver: KATERINE BOLTON ([phone])[facility] ([facility])[address] [place] [address] [place] Sodium [Moles/Vol] 128 mmol/L Low 135-145 [facility] Comment on above: Performed By: #### L AB103, LAB15 ####Lifter/Driver: KATERINE BOLTON ([phone])[facility] ([facility])[address] [place] [address] Urea nitrogen [Mass/Vol] 63 mg/dL High 9-20 [facility] Comment on above: Performed By: #### L AB103, LAB15 ####Lifter/Driver: KATERINE BOLTON ([phone])[facility] ([facility])[address] [place] [address] Basic metabolic 1998 panelon 03-03-2023 Anion gap [Moles/Vol] 11 mmol/L 3 - 13 mmol/L [facility] Calcium [Mass/Vol] 9.2 mg/dL 8.4 - 10. 4 mg/dL [facility] Chloride [Moles/Vol] 96 mmol/L Low 98 - 10 7 mmol/L [facility] CO2 [Moles/Vol] 20 mmol/L Low 22 - 30 mmol/L [facility] Creatinine [Mass/Vol] 1.74 mg/dL High 0.66 - 1.25 mg/dL [facility] GFR/1.73 sq M.predicted MDRD (S/P/Bld) [Vol rate/Area] 39.6 mL/min/{1.73_m2} Low - PINF [facility] Comment on above: Calculation based on the Chronic Kidney Disease Epidemiology Collaboration (CKD-EPI) equation refit without adjustment for race Glucose [Mass/Vol] 144 mg/dL High 70 - 100 mg/dL [facility] Potassium [Moles/Vol] 4.7 mmol/L 3.5 - 5.1 mmol/L [facility] Sodium [Moles/Vol] 128 mmol/L Low 135 - 145 mmol/L [facility] Urea nitrogen [Mass/Vol] 63 mg/dL High 9 - 20 mg/dL [facility] CBC (HEMOGRAM)on 03-03-2023 Erythrocyte distribution width (RBC) [Ratio] 17.0 % High 11.5-14.5 [facility] Comment on above: Performed By: #### L [id number] ####Lifter/Driver: KATERINE BOLTON ([phone])[facility])[address] [place] [address] ERYTHROCYTE MEAN CORPUSCULAR HEMOGLOBIN CONCENTRATION (G/DL) BY AUTOMATED 33.2 % Normal 32.0-36.0 [facility] Comment on above: Performed By: #### L AB294 ####Lifter/Driver: KATERINE BOLTON ([id number])[facility])[address] [place] [address] Hematocrit (Bld) [Volume fraction] 29.0 % Low 40.0-52.0 [facility] Comment on above: Performed By: #### L [id number] ####Lifter/Driver: KATERINE BOLTON ([id number])[facility])[address] [place] [address] Hemoglobin (Bld) [Mass/Vol] 9.6 g/dL Low 13.0-18.0 [facility] Comment on above: Performed By: #### L [id number] ####Lifter/Driver: KAETRINE BOLTON ([id number])[facility] ([facility])[address] [place] [address] MCH (RBC) [Entitic mass] 26.5 pg Normal 26.0-34.0 [facility] Comment on above: Performed By: #### L [id number] ####Lifter/Driver: KATERINE BOLTON ([id number])[facility])[address] [place] [address] MCV (RBC) [Entitic vol] 79.9 fL Low 80.0-98.0 [facility] Comment on above: Performed By: #### L [id number] ####Lifter/Driver: KATERINE BOLTON ([id number])[facility])[address] [place] [address] Platelet mean volume (Bld) [Entitic vol] 7.4 fL Normal 7.4-12.4 [facility] Comment on above: Performed By: #### L [id number] ####Lifter/Driver: KTAERINE BOLTON ([phone])[facility])[address] Platelets (Bld) [#/Vol] 257 10*3/uL Normal 140-440 [facility] Comment on above: Performed By: #### L [id number] ####Lifter/Driver: KATERINE BOLTON ([id number])[facility])[address] [place] [address] RBC (Bld) [#/Vol] 3.63 10*6/uL Low 4.40-5.90 [facility] Comment on above: Performed By: #### L [id number] ####Lifter/Driver: KATERINE BOLTON ([id number])[facility])[address] [place] [address] WBC (Bld) [#/Vol] 14.3 10*3/uL High 3.6-10.7 [facility] Comment on above: Performed By: #### L [id number] ####Lifter/Driver: KATERINE BOLTON ([id number])[facility] ([facility])[address] [place] [address] CBC panel Auto (Bld)Ordered By: Darinel Kuhn on 03-03-2023 Erythrocyte distribution width (RBC) [Ratio] 17.0 % High 11.5 - 14.5 % [facility] Hematocrit (Bld) [Volume fraction] 29.0 % Low 40.0 - 52.0 % [facility] Hemoglobin (Bld) [Mass/Vol] 9.6 g/dL Low 13.0 - 18.0 g/dL [facility] Interpretation and review of laboratory results Abnormal [facility] MCH (RBC) [Entitic mass] 26.5 pg 26.0 - 34.0 pg [facility] MCHC (RBC) [Mass/Vol] 33.2 % 32.0 - 36.0 % [facility] MCV (RBC) [Entitic vol] 79.9 fL Low 80.0 - 98.0 fL [facility] Platelet mean volume (Bld) [Entitic vol] 7.4 fL 7.4 - 12.4 fL [facility] Platelets (Bld) [#/Vol] 257 10*3/uL 140 - 440 10*3/uL [facility] RBC (Bld) [#/Vol] 3.63 10*6/uL Low 4.40 - 5.90 10*6/uL [facility] WBC (Bld) [#/Vol] 14.3 10*3/uL High 3.6 - 10.7 10*3/uL [facility] ECG 12-LEADon 03-03-2023 ECG 12-LEAD IMPRESSION: Sinus rhythm Right bundle branch block Electronically Signed On 03-03-2023 15:57:13 EST by Bishnu Cochran [facility] ECG 12-LEAD IMPRESSION: Atrial fibrillation Anterior infarct, acute Electronically Signed On 03-03-2023 15:43:09 EST by Bishnu Cochran [facility] ECG 12-LEAD IMPRESSION: Probable atrial fibrillation Nonspecific T abnormalities, lateral leads Borderline ST elevation, anterior leads Electronically Signed On 03-03-2023 15:43:55 EST by Bishnu Cochran [facility] Laboratory - Chemistry and C hemistry - challengeon 03-03-2023 Glucose [Mass/Vol] 167 mg/dL High 70 - 100 mg/dL [facility] Glucose [Mass/Vol] 276 mg/dL High 70 - 100 mg/dL [facility] Glucose [Mass/Vol] 249 mg/dL High 70 - 100 mg/dL [facility] Magnesium [Mass/Vol] 2.7 mg/dL High 1.6 - 2 .3 mg/dL [facility] Laboratory - Coagulationon 1 05-03-2022 aPTT Coag (PPP) [Time] 31.9 s High 20.0 - 30.5 s [facility] INR Coag (PPP) [Relative time] 1.2 {INR} High 0.9 - 1.1 [facility] Comment on above: Recommended Anticoag ulant Therapy: SEE BELOW ----- INR of 2.0 - 3.0 : - Prophylaxis of Venous Thrombosis (high-risk surgery) - Treatment of Venous Thrombosis - Treatment of Pulmonary Embolism (Includes tissue heart valves, Acute Myocardial Infarction to prevent systemic embolism, Valvular Heart Disease, and Atrial Fibrillation) ----- INR of 2.5 - 3.5 : - Mechanical Prosthetic Valves (high risk) - If oral anticoagulant therapy is used to prevent Myocardial Infarction PT Coag (Bld) [Time] 12.2 s High 9.0 - 1 2.0 s [facility] MAGNESIUMon 03-03-2023 Magnesium [Mass/Vol] 2.7 mg/dL High 1.6-2.3 [facility] Comment on above: Performed By: #### L [id number], LAB15 ####Lifter/Driver: KATERINE BOLTON ([id number])[facility] ([facility])[address] [place] [address] No Panel Informationon 03-03 Interpretation and review of laboratory results Abnormal [facility] Performed by: [facility], [address] [place] [address] CLIA ID: [id number] [facility] Interpretation and review of laboratory results Abnormal [facility] Performed by: [facility], [address] [place] [address] CLIA ID: [id number] [facility] Sinus rhythm Right bundle branch block Electronically Signed On 03-03-2023 15:57:13 EST by Bishnu Phelps MD - 03/03/2023 IMPRESSION: Sinus rhythm Right bundle branch block Electronically Signed On 03-03-2023 15:57:13 EST by Bishnu Cochran [facility] P [place] 0 degrees [facility] [place] Interval 90 ms [facility] QRS [place] 9 degrees [facility] QRSD Interval 83 ms [facility] QT Interval 312 ms [facility] QTC Interval 475 ms [facility] T Wave [place] 159 degrees [facility] Probable atrial fibrillation Nonspecific T abnormalities, lateral leads Borderline ST elevation, anterior leads Electronically Signed On 03-03-2023 15:43:55 EST by Bishnu Phelps MD - 03/03/2023 IMPRESSION: Probable atrial fibrillation Nonspecific T abnormalities, lateral leads Borderline ST elevation, anterior leads Electronically Signed On 03-03-2023 15:43:55 EST by Bishnu Cochran [facility] P [place] degrees [facility] [place] Interval ms [facility] QRS [place] 4 degrees [facility] QRSD Interval 90 ms [facility] QT Interval 340 ms [facility] QTC Interval 470 ms [facility] T Wave [place] 42 degrees [facility] Atrial fibrillation Anterior infarct, acute Electronically Signed On 03-03-2023 15:43:09 EST by Bishnu Phelps MD - 03/03/2023 IMPRESSION: Atrial fibrillation Anterior infarct, acute Electronically Signed On 03-03-2023 15:43:09 EST by Bishnu Cochran [facility] [employer] Interpretation and review of laboratory results Abnormal [facility] Performed by: [facility], [address] [place] [address] CLIA ID: [id number] [facility] [employer] Interpretation and review of laboratory results Abnormal [facility] [employer] Interpretation and review of laboratory results Abnormal [facility] [employer] No Panel InformationOrdered By: Bishnu Cochran on 03-03-2023 P [place] 56 degrees [facility] Work Phone: [place] Interval 175 ms [facility] Work Phone: QRS [place] 73 degrees [facility] Work Phone: QRSD Interval 131 ms [facility] Work Phone: QT Interval 447 ms [facility] Work Phone: QTC Interval 494 ms [facility] Work Phone: T Wave [place] -5 degrees [facility] Work Phone: [employer] Work Phone: PROTIME AND APTTon 3 aPTT Coag (Bld) [Time] 31.9 s High 20.0-30.5 [facility] Comment on above: Performed By: #### L [id number] ####Lifter/Driver: KATERINE BOLTON ([id number])[facility] ([facility])[address] [place] [address] INR Coag (PPP) [Relative time] 1.2 {INR} High 0.9-1.1 [facility] [facility] Comment on above: Result Comment: Duong mmended Anticoagulant Therapy: SEE BELOW ----- INR of 2.0 - 3.0 : - Prophylaxis of Venous Thrombosis (high-risk surgery) - Treatment of Venous Thrombosis - Treatment of Pulmonary Embolism (Includes tissue heart valves, Acute Myocardial Infarction to prevent systemic embolism, Valvular Heart Disease, and Atrial Fibrillation) ----- INR of 2.5 - 3.5 : - Mechanical Prosthetic Valves (high risk) - If oral anticoagulant therapy is used to prevent Myocardial Infarction Performed By: #### L [id number] ####Lifter/Driver: KATERINE BOLTON ([id number])[facility] ([facility])[address] [place] [address] PT Coag (PPP) [Time] 12.2 s High 9.0-12.0 [facility] Comment on above: Performed By: #### L [id number] ####Lifter/Driver: KATERINE BOLTON ([id number])[facility] ([facility])[address] [place] [address] Progress Noteon 03-03-2023 Progress Note Cardiothoracic Surge ry Note PATIENT NAME: Vidal Kay : 1945 (78 y.o.) TODAY'S DATE: 03/03/2023 Objective: BP 110/51 Pulse 57 Temp 36.7 ?C (98 ?F) (Temporal) Resp 16 Ht 5' 6.5 (1.689 m) Wt 155 lb 3.2 oz (70.4 kg) SpO2 91% BMI 24.67 kg/m? Chest tubes assessed: no air leak, subcutaneous air noted. Chest tubes removed without difficulty and dressing applied. Patient tolerated well. Patient and nurse educated on possible complications to observe for. Will continue to monitor. Normal [facility] Progress Note Department of Refuse Laborer al Medicine Division of Endocrinology, Diabetes, & Metabolism Endocrinology Note Patient Name: Vidal Kay : 1945 AGE: 78 y.o. Room/Bed: [facility] A Admission Date: 02/28/2023 Visit Date: 03/03/2023 Reason for Endocrine Consult: post op heart Provider/Team Requesting Consult: cts PCP: Felix Bill [facility] [employer]: No ASSESSMENT: Stress hyperglycemia DM2 with hyperglycemia without long term care administrator insulin Cabgx2, AVR CAD/ HTN/HLD PLAN: Transitioned off insulin gtt 03/01/23. PM hyperglycemia requiring additional dose of Lantus and Humalog. No FBG this am to assess response; had already eaten. Continue Lantus 24 units at bedtime. Continue Humalog 10 units with meals, hold if NPO. Diet as tolerated. ICU goal <180 GMF goal <150 POCT BG Q 1 Hypoglycemia per protocol Carb controlled diet ANTICIPATED ENDOCRINE HOME GOING RECOMMENDATIONS: Optimized for Discharge from Endocrine standpoint: No Home Going Endocrine Rx Recommendations-- tbd Outpt Follow Up-- Pcp and states he sees katelyn endocrine SUBJECTIVE/HPI: CHIEF COMPLAINT: No chief complaint on file. Cabgx2, AVR; History of DM2 managed outpatient by PCP Interval history (03/03/23) and daughter at bedside. Correa removed. CT(s) remain. He c/o fatigue, incisional soreness today. +Productive cough. Appetite is fair, not at baseline. He had cereal for breakfast. Drinking Ensure surgery as well. Denies n/v/d. Has been up for a walk this AM. Family had multiple questions specific to discharge timeline/process. Briefly discussed; encouraged to seek specific details from surgical team. Type of DM: 2 Onset of DM: 7 years ago Home DM Medication Regimen: farxiga 10, glipizide 10 daily, lantus pens 15 hs DM control (last A1c/glucose data): Lab Results Component Value Date HGBA1C 7.3 (H) 02/19/2023 Does wear dexcom g6- on right arm- no lifter/driver with him Glucose Date/Time Value Ref Range Status 03/02/2023 08:47 PM 293 (H) 70 - 100 mg/dL Final 03/02/2023 06:56 PM 325 (H) 70 - 100 mg/dL Final 03/02/2023 01:12 PM 122 (H) 70 - 100 mg/dL Final 03/02/2023 12:06 PM 147 (H) 70 - 100 mg/dL Final 03/02/2023 11:18 AM 161 (H) 70 - 100 mg/dL Final 03/02/2023 10:17 AM 184 (H) 70 - 100 mg/dL Final Review of Systems All other systems reviewed and are negative. ROS negative except for those mentioned in HPI. OBJECTIVE: Vitals: 03/02/23 2000 03/03/23 0000 03/03/23 0400 03/03/23 0600 BP: 135/62 127/66 (!) 151/65 BP Location: Left arm Left arm Left arm Patient Position: Lying Lying Lying Pulse: 61 61 63 Resp: 18 18 16 Temp: 36.8 ?C (98.2 ?F) 36.7 ?C (98 ?F) 36.7 ?C (98 ?F) TempSrc: Temporal Temporal Temporal SpO2: 95% 94% 94% Weight: 155 lb 3.2 oz (70.4 kg) Height: Physical Exam Vitals and nursing note reviewed. Constitutional: General: He is not in acute distress. Comments: Sitting up in the bed. Lean build. HENT: Head: Normocephalic. Mouth/Throat: Mouth: Mucous membranes are moist. Eyes: Extraocular Movements: Extraocular movements intact. Cardiovascular: Rate and Rhythm: Normal rate and regular rhythm. Pulses: Normal pulses. Heart sounds: Normal heart sounds. Comments: CT(s) remain. SR on telemetry. Pulmonary: Effort: Pulmonary effort is normal. Skin: General: Skin is warm and dry. Comments: MSCI open-to-air; surrounding lidocaine patches noted. Neurological: General: No focal deficit present. Mental Status: He is alert and oriented to person, place, and time. Psychiatric: Mood and Affect: Mood normal. 24 hour intake/output: Intake/Output Summary (Last 24 hours) at 03/03/2023 1041 Last data filed at 03/03/2023 0930 Gross per 24 hour Intake 300 ml Output 1415 ml Net -1115 ml Diet: Adult diet Regular; No Added Salt (3-4 gm) Medications (as per EMR): HomeMeds: Current Outpatient Medications Medication Instructions ascorbic acid (VITAMIN C) 1,000 mg, Oral, Daily aspirin 81 mg, Oral, Daily dapagliflozin (FARXIGA) 10 mg, Oral, Daily ferrous sulfate 325 (65 Fe) MG tablet 1 tablet, Oral, Daily glipiZIDE (GLUCOTROL) 10 mg, Oral, Daily glucosamine-chondroitin 500-400 MG tablet 1 tablet, Oral, 3 times daily insulin glargine (LANTUS) 15 Units, SubCUTAneous, Nightly mesalamine (LIALDA) 2,400 mg, Oral, Daily with breakfast, Do not crush, chew, or split. Multiple Vitamins-Minerals (multivitamin with minerals) tablet 1 tablet, Oral, Daily mupirocin (Bactroban) 2 % ointment Apply liberal amount per nostril the night before surgery and then again the morning of surgery ramipril (ALTACE) 5 mg, Oral, Daily Scheduled Meds:acetaminophen, 1,000 mg, Oral, q8h amiodarone, 400 mg, Oral, BID amLODIPine, 10 mg, Oral, Daily aspirin, 81 mg, Oral, Daily chlorhexidine, 15 mL, Mouth/Throat, BID enoxaparin, 40 mg, SubCUTAneous, Daily ferrous sulfate, 325 mg, Oral, Daily insulin glargine, 2 (more content not included)... Normal [facility] Vital signsOrdered By: Aidan Cochran on 03-03-2023 Heart rate 73 /min bpm [facility] [employer] Work Phone: Vital signson 03-03-2023 Heart rate 140 /min bpm [facility] Heart rate 114 /min bpm [facility] XR CHEST 1 VIEWon 03-03-2023 XR CHEST 1 VIEW Patient Name: VIDAL HIRSCH : 1945 Exam Date/Time: 03/03/2023 05:20 Procedure: XR CHEST 1 VIEW Ordering Provider: WALSH MATTHEW Reason For Exam: Shortness of breath PORTABLE CHEST: INDICATION: Shortness of breath COMPARISON: 03/02/2023 Obtained at 0519 hours. A single portable AP radiograph of the chest was obtained. The heart is normal in size. The mediastinal silhouette is normal. There is pulmonary congestion and bilateral infiltrates. Bibasal effusions are present, right greater than left. There is no pleural thickening. The osseous structures are unremarkable. The patient has undergone prior open heart surgery. There is a left basal chest tube and mediastinal drain. IMPRESSION: Pulmonary congestion with bilateral infiltrates, right greater than left. Bibasal effusions are present. Report Dictated on Electronically Signed By: Emiliano Domínguez DO Electronically Signed Date/Time: 03/03/2023 8:27 AM EST Normal [facility] XR Chest Single viewon 03-03 Pulmonary congestion with bilateral infiltrates, right greater than left. Bibasal effusions are present. Report Dictated on Electronically Signed By: Emiliano Domínguez DO Electronically Signed Date/Time: 03/03/2023 8:27 AM [facility] Patient Name: VIDAL HIRSCH : 1945 Exam Date/Time: 03/03/2023 05:20 Procedure: XR CHEST 1 VIEW Ordering Provider: WALSH MATTHEW Reason For Exam: Shortness of breath PORTABLE CHEST: INDICATION: Shortness of breath COMPARISON: 03/02/2023 Obtained at 0519 hours. A single portable AP radiograph of the chest was obtained. The heart is normal in size. The mediastinal silhouette is normal. There is pulmonary congestion and bilateral infiltrates. Bibasal effusions are present, right greater than left. There is no pleural thickening. The osseous structures are unremarkable. The patient has undergone prior open heart surgery. There is a left basal chest tube and mediastinal drain. [facility] Emiliano Domínguez DO - 03/03/2023 Patient Name: VIDAL KAY : 1945 Exam Date/Time: 03/03/2023 05:20 Procedure: XR CHEST 1 VIEW Ordering Provider: WALSH MATTHEW Reason For Exam: Shortness of breath PORTABLE CHEST: INDICATION: Shortness of breath COMPARISON: 03/02/2023 Obtained at 0519 hours. A single portable AP radiograph of the chest was obtained. The heart is normal in size. The mediastinal silhouette is normal. There is pulmonary congestion and bilateral infiltrates. Bibasal effusions are present, right greater than left. There is no pleural thickening. The osseous structures are unremarkable. The patient has undergone prior open heart surgery. There is a left basal chest tube and mediastinal drain. IMPRESSION: Pulmonary congestion with bilateral infiltrates, right greater than left. Bibasal effusions are present. Report Dictated on Electronically Signed By: Emiliano Domínguez DO Electronically Signed Date/Time: 03/03/2023 8:27 AM [facility] [place] [facility] Study observation (narrative) [facility] BASIC METABOLIC PANELon 11-0 Anion gap [Moles/Vol] 14 mmol/L High 3-13 [facility] Comment on above: Performed By: #### L [id number], LAB15 ####Lifter/Driver: KATERINE BOLTON ([id number])[facility] ([facility])[address] [place] [address] Calcium [Mass/Vol] 9.5 mg/dL Normal 8.4-10.4 [facility] Comment on above: Performed By: #### L AB103, LAB15 ####Lifter/Driver: KATERINE BOLTON ([phone])[facility] ([facility])[address] [place] [address] Chloride [Moles/Vol] 98 mmol/L Normal 98-107 [facility] Comment on above: Performed By: #### L 103, LAB15 ####Lifter/Driver: KATERINE BOLTON ([id number])[facility] ([facility])[address] [place] [address] CO2 [Moles/Vol] 20 mmol/L Low 22-30 [facility] Comment on above: Performed By: #### L 103, LAB15 ####Lifter/Driver: KATERINE BOLTON ([id number])[facility] ([facility])[address] [place] [address] Creatinine [Mass/Vol] 1.62 mg/dL High 0.66-1.25 [facility] Comment on above: Performed By: #### L AB103, LAB15 ####Lifter/Driver: KATERINE BOLTON ([phone])[facility])[address] [place] [address] [place] GLOMERULAR FILTRATION RATE ML/MIN/1.73 SQ M.PREDICTED 43.2 mL/min/1.73m*2 Low >60.0 [facility] Comment on above: Result Comment: Calc ulation based on the Chronic Kidney Disease Epidemiology Collaboration (CKD-EPI) equation refit without adjustment for race Performed By: #### L AB103, LAB15 ####Lifter/Driver: KATERINE [id number])[facility] [place] [address] [place] Glucose [Mass/Vol] 123 mg/dL High 70-100 [facility] Comment on above: Performed By: #### L AB103, LAB15 ####Lifter/Driver: KATERINE BOLTON ([phone])[facility] ([facility])[address] [place] [address] Potassium [Moles/Vol] 4.7 mmol/L Normal 3.5-5.1 [facility] Comment on above: Performed By: #### L AB103, LAB15 ####Lifter/Driver: KATERINE BOLTON ([id number])[facility] ([facility])[address] [place] [address] Sodium [Moles/Vol] 132 mmol/L Low 135-145 [facility] Comment on above: Performed By: #### L AB103, LAB15 ####Lifter/Driver: KATERINE BOLTON ([phone])[facility] ([facility])[address] [place] [address] Urea nitrogen [Mass/Vol] 40 mg/dL High 9-20 [facility] Comment on above: Performed By: #### L AB103, LAB15 ####Lifter/Driver: KATERINE BOLTON ([id number])[facility])[address] [place] [address] Basic metabolic 1998 panelon 03-02-2023 Anion gap [Moles/Vol] 14 mmol/L High 3 - 13 mmol/L [facility] Calcium [Mass/Vol] 9.5 mg/dL 8.4 - 10. 4 mg/dL [facility] Chloride [Moles/Vol] 98 mmol/L 98 - 10 7 mmol/L [facility] CO2 [Moles/Vol] 20 mmol/L Low 22 - 30 mmol/L [facility] Creatinine [Mass/Vol] 1.62 mg/dL High 0.66 - 1.25 mg/dL [facility] GFR/1.73 sq M.predicted MDRD (S/P/Bld) [Vol rate/Area] 43.2 mL/min/{1.73_m2} Low - PINF [facility] Comment on above: Calculation based on the Chronic Kidney Disease Epidemiology Collaboration (CKD-EPI) equation refit without adjustment for race Glucose [Mass/Vol] 123 mg/dL High 70 - 100 mg/dL [facility] Potassium [Moles/Vol] 4.7 mmol/L 3.5 - 5.1 mmol/L [facility] Sodium [Moles/Vol] 132 mmol/L Low 135 - 145 mmol/L [facility] Urea nitrogen [Mass/Vol] 40 mg/dL High 9 - 20 mg/dL [facility] CBC (HEMOGRAM)on 03-02-2023 Erythrocyte distribution width (RBC) [Ratio] 16.8 % High 11.5-14.5 [facility] Comment on above: Performed By: #### L [id number] ####Lifter/Driver: KATERINE BOLTON ([id number])[facility])[address] [place] [address] ERYTHROCYTE MEAN CORPUSCULAR HEMOGLOBIN CONCENTRATION (G/DL) BY AUTOMATED 33.4 % Normal 32.0-36.0 [facility] Comment on above: Performed By: #### L [id number] ####Lifter/Driver: KATERINE BOLTON ([id number])[facility])[address] [place] [address] Hematocrit (Bld) [Volume fraction] 28.0 % Low 40.0-52.0 [facility] Comment on above: Performed By: #### L [id number] ####Lifter/Driver: KATERINE BOLTON ([id number])[facility])[address] [place] [address] [place] Hemoglobin (Bld) [Mass/Vol] 9.4 g/dL Low 13.0-18.0 [facility] Comment on above: Performed By: #### L [id number] ####Lifter/Driver: KATERINE BOLTON ([id number])[facility])[address] [place] [address] MCH (RBC) [Entitic mass] 26.9 pg Normal 26.0-34.0 [facility] Comment on above: Performed By: #### L [id number] ####Lifter/Driver: KATERINE [id number])[facility] ([facility])[address] [place] [address] MCV (RBC) [Entitic vol] 80.5 fL Normal 80.0-98.0 [facility] Comment on above: Performed By: #### L [id number] ####Lifter/Driver: KATERINE BOLTON ([id number])[facility])[address] [place] [address] Platelet mean volume (Bld) [Entitic vol] 7.4 fL Normal 7.4-12.4 [facility] Comment on above: Performed By: #### L [id number] ####Lifter/Driver: KATERINE BOLTON ([id number])[facility])[address] [place] [address] Platelets (Bld) [#/Vol] 215 10*3/uL Normal 140-440 [facility] Comment on above: Performed By: #### L [id number] ####Lifter/Driver: KATERINE BOLTON ([id number])[facility])[address] [place] [address] RBC (Bld) [#/Vol] 3.48 10*6/uL Low 4.40-5.90 [facility] Comment on above: Performed By: #### L [id number] ####Lifter/Driver: KATERINE BOLTON ([id number])[facility])[address] [place] [address] WBC (Bld) [#/Vol] 12.0 10*3/uL High 3.6-10.7 [facility] Comment on above: Performed By: #### L [id number] ####Lifter/Driver: KATERINE BOLTON ([phone])[facility])[address] [place] [address] CBC panel Auto (Bld)Ordered By: Sheeba Silva on 03-02-2023 Erythrocyte distribution width (RBC) [Ratio] 16.8 % High 11.5 - 14.5 % [facility] Hematocrit (Bld) [Volume fraction] 28.0 % Low 40.0 - 52.0 % [facility] Hemoglobin (Bld) [Mass/Vol] 9.4 g/dL Low 13.0 - 18.0 g/dL [facility] Interpretation and review of laboratory results Abnormal [facility] MCH (RBC) [Entitic mass] 26.9 pg 26.0 - 34.0 pg [facility] MCHC (RBC) [Mass/Vol] 33.4 % 32.0 - 36.0 % [facility] MCV (RBC) [Entitic vol] 80.5 fL 80.0 - 98.0 fL [facility] Platelet mean volume (Bld) [Entitic vol] 7.4 fL 7.4 - 12.4 fL [facility] Platelets (Bld) [#/Vol] 215 10*3/uL 140 - 440 10*3/uL [facility] RBC (Bld) [#/Vol] 3.48 10*6/uL Low 4.40 - 5.90 10*6/uL [facility] WBC (Bld) [#/Vol] 12.0 10*3/uL High 3.6 - 10.7 10*3/uL [facility] Laboratory - Chemistry and C hemistry - challengeon 03-02-2023 Glucose [Mass/Vol] 293 mg/dL High 70 - 100 mg/dL [facility] Glucose [Mass/Vol] 325 mg/dL High 70 - 100 mg/dL [facility] Glucose [Mass/Vol] 122 mg/dL High 70 - 100 mg/dL [facility] Glucose [Mass/Vol] 147 mg/dL High 70 - 100 mg/dL [facility] Glucose [Mass/Vol] 161 mg/dL High 70 - 100 mg/dL [facility] Glucose [Mass/Vol] 184 mg/dL High 70 - 100 mg/dL [facility] Glucose [Mass/Vol] 216 mg/dL High 70 - 100 mg/dL [facility] Glucose [Mass/Vol] 185 mg/dL High 70 - 100 mg/dL [facility] Glucose [Mass/Vol] 174 mg/dL High 70 - 100 mg/dL [facility] Glucose [Mass/Vol] 131 mg/dL High 70 - 100 mg/dL [facility] Glucose [Mass/Vol] 106 mg/dL High 70 - 100 mg/dL [facility] Glucose [Mass/Vol] 89 mg/dL 70 - 100 mg/dL [facility] Glucose [Mass/Vol] 102 mg/dL High 70 - 100 mg/dL [facility] Glucose [Mass/Vol] 136 mg/dL High 70 - 100 mg/dL [facility] Glucose [Mass/Vol] 124 mg/dL High 70 - 100 mg/dL [facility] Magnesium [Mass/Vol] 2.4 mg/dL High 1.6 - 2 .3 mg/dL [facility] Glucose [Mass/Vol] 131 mg/dL High 70 - 100 mg/dL [facility] Laboratory - Coagulationon 1 05-02-2022 aPTT Coag (PPP) [Time] 35.0 s High 20.0 - 30.5 s [facility] INR Coag (PPP) [Relative time] 1.2 {INR} High 0.9 - 1.1 [facility] Comment on above: Recommended Anticoag ulant Therapy: SEE BELOW ----- INR of 2.0 - 3.0 : - Prophylaxis of Venous Thrombosis (high-risk surgery) - Treatment of Venous Thrombosis - Treatment of Pulmonary Embolism (Includes tissue heart valves, Acute Myocardial Infarction to prevent systemic embolism, Valvular Heart Disease, and Atrial Fibrillation) ----- INR of 2.5 - 3.5 : - Mechanical Prosthetic Valves (high risk) - If oral anticoagulant therapy is used to prevent Myocardial Infarction PT Coag (Bld) [Time] 12.4 s High 9.0 - 1 2.0 s [facility] MAGNESIUMon 03-02-2023 Magnesium [Mass/Vol] 2.4 mg/dL High 1.6-2.3 [facility] Comment on above: Performed By: #### L [id number], [id number] ####Lifter/Driver: KATERINE BOLTON ([id number])[facility] ([facility])[address] [place] [address] No Panel Informationon 03-02 Interpretation and review of laboratory results Abnormal [facility] Performed by: [facility], [address] [place] [address] CLIA ID: [id number] [facility] Interpretation and review of laboratory results Abnormal [facility] Performed by: [facility], [address] [place] [address] CLIA ID: [id number] [facility] Interpretation and review of laboratory results Abnormal [facility] Performed by: [facility] [place] [facility], [address] [place] [address], [place] [address] CLIA ID: [id number] [facility] Interpretation and review of laboratory results Abnormal [facility] Performed by: [facility] [place] [facility], [address] [place] [address], [place] [address] CLIA ID: [id number] [facility] Interpretation and review of laboratory results Abnormal [facility] Performed by: [facility] [place] [facility], [address] [place] [address], [place] [address] CLIA ID: [id number] [facility] Interpretation and review of laboratory results Abnormal [facility] Performed by: [facility] [place] [facility], [address] [place] [address], [place] [address] CLIA ID: [id number] [facility] Interpretation and review of laboratory results Abnormal [facility] Performed by: [facility] [place] [facility], [address] [place] [address], [place] [address] CLIA ID: [id number] [facility] Interpretation and review of laboratory results Abnormal [facility] Performed by: [facility] [place] [facility], [address] [place] [address], [place] [address] CLIA ID: [id number] [facility] Interpretation and review of laboratory results Abnormal [facility] Performed by: [facility] [place] [facility], [address] [place] [address], [place] [address] CLIA ID: [id number] [facility] Interpretation and review of laboratory results Abnormal [facility] Performed by: [facility] [place] [facility], [address] [place] [address], [place] [address] CLIA ID: [id number] [facility] Interpretation and review of laboratory results Abnormal [facility] Performed by: [facility] [place] [facility], [address] [place] [address], [place] [address] CLIA ID: [id number] [facility] Interpretation and review of laboratory results Normal [facility] Performed by: [facility] [place] [facility], [address] [place] [address], [place] [address] CLIA ID: [id number] [facility] Interpretation and review of laboratory results Abnormal [facility] Performed by: [facility] [place] [facility], [address] [place] [address], [place] [address] CLIA ID: [id number] [facility] Interpretation and review of laboratory results Abnormal [facility] Performed by: [facility], [address] [place] [address] CLIA ID: [id number] [facility] Interpretation and review of laboratory results Abnormal [facility] Performed by: [facility], [address] [place] [address] CLIA ID: [id number] [facility] Interpretation and review of laboratory results Abnormal [facility] Interpretation and review of laboratory results Abnormal [facility] Interpretation and review of laboratory results Abnormal [facility] Performed by: [facility], [address] [place] [address] CLIA ID: [id number] [facility] PROTIME AND APTTon 3 aPTT Coag (Bld) [Time] 35.0 s High 20.0-30.5 [facility] Comment on above: Performed By: #### L [id number] ####Lifter/Driver: KATERINE BOLTON ([id number])[facility] ([facility])[address] [place] [address] INR Coag (PPP) [Relative time] 1.2 {INR} High 0.9-1.1 [facility] Comment on above: Result Comment: Duong mmended Anticoagulant Therapy: SEE BELOW ----- INR of 2.0 - 3.0 : - Prophylaxis of Venous Thrombosis (high-risk surgery) - Treatment of Venous Thrombosis - Treatment of Pulmonary Embolism (Includes tissue heart valves, Acute Myocardial Infarction to prevent systemic embolism, Valvular Heart Disease, and Atrial Fibrillation) ----- INR of 2.5 - 3.5 : - Mechanical Prosthetic Valves (high risk) - If oral anticoagulant therapy is used to prevent Myocardial Infarction Performed By: #### L [id number] ####Lifter/Driver: KATERINE BOLTON ([id number])[facility] ([facility])[address] [place] [address] PT Coag (PPP) [Time] 12.4 s High 9.0-12.0 [facility] Comment on above: Performed By: #### L [id number] ####Lifter/Driver: KATERINE BOLTON ([id number])[facility] [place] [address] Progress Noteon 03-02-2023 Progress Note Department of Refuse Laborer al Medicine Division of Endocrinology, Diabetes, & Metabolism Endocrinology Note Patient Name: Vidal Kay : 1945 AGE: 78 y.o. Room/Bed: T1-101/T1101 A Admission Date: 02/28/2023 Visit Date: 03/02/2023 Reason for Endocrine Consult: post op heart Provider/Team Requesting Consult: cts PCP: Felix [facility] [employer] Cox[employer]: No ASSESSMENT: Stress hyperglycemia DM2 with hyperglycemia without senior living insulin Cabgx2, AVR CAD/ HTN/HLD PLAN: BG and gtt requirements reviewed. He is off pressors. He has fair appetite. GFR noted. Will transition off insulin gtt: Communication placed: Give Lantus 24 units and Humalog 2 units x1 now. Wait 30 minutes then discontinue insulin gtt. Will continue Lantus 24 units daily. Start Humalog 8 units tidac with supper tonight. Low-dose Humalog SSI. Diet as tolerated. ICU goal <180 GMF goal <150 POCT BG Q 1 Hypoglycemia per protocol Carb controlled diet ANTICIPATED ENDOCRINE HOME GOING RECOMMENDATIONS: Optimized for Discharge from Endocrine standpoint: No Home Going Endocrine Rx Recommendations-- tbd Outpt Follow Up-- Pcp and states he sees katelyn endocrine SUBJECTIVE/HPI: CHIEF COMPLAINT: No chief complaint on file. Cabgx2, AVR; History of DM2 managed outpatient by PCP Interval history (03/02/23) , son, and daughter at bedside. Nursing at bedside. He went into AF overnight; required IV amiodarone and dobutamine gtt. Both have since been discontinued. Remains on insulin gtt, currently at 3.5 units/hr. He had cheerios for breakfast. Appetite is returning but not at baseline. Denies n/v/d. C/o fatigue. C/o incisional soreness. Has been up for a walk this AM. Type of DM: 2 Onset of DM: 7 years ago Home DM Medication Regimen: farxiga 10, glipizide 10 daily, lantus pens 15 hs DM control (last A1c/glucose data): Lab Results Component Value Date HGBA1C 7.3 (H) 02/19/2023 Does wear dexcom g6- on right arm- no lifter/driver with him Glucose Date/Time Value Ref Range Status 03/02/2023 10:17 AM 184 (H) 70 - 100 mg/dL Final 03/02/2023 09:13 AM 216 (H) 70 - 100 mg/dL Final 03/02/2023 08:08 AM 185 (H) 70 - 100 mg/dL Final 03/02/2023 07:02 AM 174 (H) 70 - 100 mg/dL Final 03/02/2023 06:17 AM 131 (H) 70 - 100 mg/dL Final 03/02/2023 04:52 AM 106 (H) 70 - 100 mg/dL Final Review of Systems All other systems reviewed and are negative. ROS negative except for those mentioned in HPI. OBJECTIVE: Vitals: 03/02/23 0400 03/02/23 0500 03/02/23 0600 03/02/23 0700 BP: (!) 165/73 (!) 149/73 (!) 168/69 (!) 177/68 BP Location: Left arm Patient Position: Lying Pulse: 62 61 59 62 Resp: 20 Temp: 36.6 ?C (97.8 ?F) TempSrc: Oral SpO2: 95% 95% 95% 90% Weight: 156 lb 15.5 oz (71.2 kg) Height: Physical Exam Vitals and nursing note reviewed. Constitutional: General: He is not in acute distress. Comments: Lean build, up-to-chair. HENT: Head: Normocephalic. Mouth/Throat: Mouth: Mucous membranes are moist. Eyes: Extraocular Movements: Extraocular movements intact. Cardiovascular: Rate and Rhythm: Normal rate. Rhythm irregular. Pulses: Normal pulses. Heart sounds: Normal heart sounds. Comments: Trace generalized edema. CT noted. Pulmonary: Effort: Pulmonary effort is normal. Breath sounds: Normal breath sounds. Abdominal: General: Bowel sounds are normal. Palpations: Abdomen is soft. Skin: General: Skin is warm and dry. Neurological: General: No focal deficit present. Mental Status: He is alert and oriented to person, place, and time. Psychiatric: Mood and Affect: Mood normal. 24 hour intake/output: Intake/Output Summary (Last 24 hours) at 03/02/2023 1028 Last data filed at 03/02/2023 0900 Gross per 24 hour Intake 3425 ml Output 878 ml Net 2547 ml Diet: Adult diet Regular; No Added Salt (3-4 gm) Medications (as per EMR): HomeMeds: Current Outpatient Medications Medication Instructions ascorbic acid (VITAMIN C) 1,000 mg, Oral, Daily aspirin 81 mg, Oral, Daily dapagliflozin (FARXIGA) 10 mg, Oral, Daily ferrous sulfate 325 (65 Fe) MG tablet 1 tablet, Oral, Daily glipiZIDE (GLUCOTROL) 10 mg, Oral, Daily glucosamine-chondroitin 500-400 MG tablet 1 tablet, Oral, 3 times daily insulin glargine (LANTUS) 15 Units, SubCUTAneous, Nightly mesalamine (LIALDA) 2,400 mg, Oral, Daily with breakfast, Do not crush, chew, or split. Multiple Vitamins-Minerals (multivitamin with minerals) tablet 1 tablet, Oral, Daily mupirocin (Bactroban) 2 % ointment Apply liberal amount per nostril the night before surgery and then again the morning of surgery ramipril (ALTACE) 5 mg, Oral, Daily Scheduled Meds:acetaminophen, 1,000 mg, Oral, q8h amiodarone, 400 mg, Oral, BID amLODIPine, 5 mg, Oral, Daily aspirin, 81 mg, Oral, Daily chlorhexidine, 15 mL, Mouth/Throat, BID enoxaparin, 40 mg, SubCUTAneous, Daily ferrous gardner (more content not included)... Normal [facility] Progress Note --- Attestation signed by Greg Byrd MD at 03/02/2023 2:23 PM I have personally performed a [id number] diagnostic evaluation on this patient on date of service 03/02/2023. History, labs, imaging studies, and electronic medical record have been reviewed by me. This note documented by the []fish housekeeper [x]JULIO reflects my history, exam, and medical decision making. I have reviewed and agree with the care plan. Changes were made in the orders as necessary. ROS documentation was reviewed and negative unless otherwise stated in HPI. Additional pertinent interval history, ROS, and physical exam findings: None Assessment: CAD s/p CABG AV stenosis s/p tissue AVR DM Acute kidney injury Plan: - Anti-hypertensives, uptitrate as able - PO amio - Serial BMP - Aggressive bowel regimen Cardiothoracic Surgery/CCM Progress Note PATIENT NAME: Vidal Kay DATE: 03/02/23 HPI: Vidal Kay is a 78 y.o. male referred by Dr. Baig for severe coronary artery bypass surgery and a aortic valve replacement. He presented as an OP for AVR and CABG x [address] Rodríguez. Surgery/Procedure: 02/28/23 Rodríguez: CABG x 2, Tissue AVR, LEVH Interval History: 03/02/23, POD# 03: Afebrile, NSR on tele, BP hypertensive, on 1L NC. Was in afib yesterday morning, converted with amio and BB. In the afternoon, became hypotensive, stated on pressor support and dobutamine for low CI. This AM, sitting up in chair, awake and alert. Just returned to room from ambulating with nursing. Pain tolerable. No BM yet but passing gas. No major complaints this AM. Current IV Drips: Amiodarone- 0.5mg/min Dobutamine- 2.5mcg/kg/min Insulin A-line: Arterial Line BP 1: 150/52 Invasive Hemodynamic Monitoring Hemodynamic Monitoring Additional Assessment: Yes Blood Temperature: 36.9 ?C (98.4 ?F) PAP: 50/13 PAP (Mean): 26 mmHg CVP (mmHg): 13 mmHg CVP (mean): 8 mmHg CO (L/min): 6.2 L/min CI (L/min/m2): 3.54 L/min/m2 SVR (dyne*sec)/cm5: 761 (dyne*sec)/cm5 [place] Jose (cm): 52 cm [place] Jose Waveform: Appropriate waveforms Review of Systems Constitutional: Negative for chills, diaphoresis and fever. Respiratory: Negative for cough, shortness of breath and wheezing. Cardiovascular: Negative for chest pain, palpitations and leg swelling. Gastrointestinal: Positive for abdominal distention. Negative for abdominal pain. Neurological: Negative for dizziness, syncope and light-headedness. Objective: CT output cc/24hrs: 210 UO cc/24hrs: 738 Last BM Date: (prior to surgery) Vitals: BP: (!) 149/73, MAP (mmHg): 96, BP Method: Automatic Heart Rate: 61 Resp: 20 Temp: 36.6 ?C (97.8 ?F), Temp Source: Oral BMI (Calculated): 24.75 BMP: Recent Labs 02/28/23 1029 03/01/23 0005 03/02/23 0011 NA 138 135 132* K 4.6 4.4 4.7 CL 104 103 98 CO2 22 21* 20* BUN 24* 25* 40* CREATININE 0.78 0.77 1.62* CALCIUM 9.9 8.9 9.5 MG 4.1* 2.3 2.4* PHOS 4.0 -- -- CBC: Recent Labs 02/28/23 1232 03/01/23 0005 03/01/23 1235 03/02/23 0011 WBC 16.7* 9.4 -- 12.0* HGB 8.8* 7.2* 8.7* 9.4* HCT 27.3* 21.9* 26.6* 28.0* PLT 228 199 -- 215 MCV 79.4* 79.2* -- 80.5 RDW 16.0* 15.9* -- 16.8* INR: Recent Labs 02/28/23 1029 03/01/23 0005 03/02/23 0011 INR 1.3* 1.1 1.2* Physical Exam Vitals reviewed. Constitutional: General: He is not in acute distress. Appearance: He is not ill-appearing or diaphoretic. Cardiovascular: Rate and Rhythm: Normal rate and regular rhythm. Pulses: Normal pulses. Heart sounds: No murmur heard. Pulmonary: Effort: Pulmonary effort is normal. Breath sounds: No wheezing, rhonchi or rales. Comments: Diminished in bases bilaterally. Abdominal: General: There is distension. Palpations: Abdomen is soft. Musculoskeletal: General: No swelling. Skin: General: Skin is warm and dry. Capillary Refill: Capillary refill takes less than 2 seconds. Findings: Bruising present. Comments: MSI well approximated. No redness, warmth or drainage noted. Neurological: General: No focal deficit present. Mental Status: He is alert and oriented to person, place, and time. Psychiatric: Mood and Affect: Mood normal. Behavior: Behavior normal. Thought Content: Thought content normal. Judgment: Judgment normal. Assessment: CAD s/p CABG Aortic Valve stenosis S/P Tissue AVR HTN HLD Former smoker DM II Post operative Pulm Management: Normal Post-operative Course Post-operative Atrial Fibrillation: [x]Yes [] No Acute blood loss anemia Plan: Patient Status: Telemetry Stop dobutamine gtt. Give PO anti-hypertensive's this AM. -May need to titrate up throughout today to maintain goal SBP<130. -PRN hydralazin (more content not included)... Normal [facility] XR CHEST 1 VIEWon 03-02-2023 XR CHEST 1 VIEW [facility] Name: [facility]IRS[facility] : 1945 [id number] Exam Date/Time: 03/02/2023 05:24 Procedure: XR CHEST 1 VIEW Ordering Provider: WALSH MATTHEW Reason For Exam: Shortness of breath PORTABLE CHEST: INDICATION: Shortness of breath COMPARISON: 03/01/2023 Obtained at 0523 hours. A single portable AP radiograph of the chest was obtained. The heart is borderline in size. The mediastinal silhouette is normal. There are bilateral infiltrates and pulmonary congestion. A right effusion is present. There is no pleural thickening. Arthritic changes of the spine and shoulders are present. The patient has undergone prior open heart surgery. The H[place]-Jose catheter has been removed in the interim. The mediastinal tube is unchanged. IMPRESSION: Pulmonary congestion with bilateral infiltrates, right greater than left. There is a right effusion. Report Dictated on Electronically Signed By: Emiliano Domínguez DO Electronically Signed Date/Time: 03/02/2023 11:41 AM EDT [facility] XR Chest Single viewon 03-02 Pulmonary congestion with bilateral infiltrates, right greater than left. There is a right effusion. Report Dictated on Electronically Signed By: Emiliano Domínguez DO Electronically Signed Date/Time: 03/02/2023 11:41 AM EDT [facility] Patient Name: VIDAL HIRSCH : 1945 Exam Date/Time: 03/02/2023 05:24 Procedure: XR CHEST 1 VIEW Ordering Provider: WALSH MATTHEW Reason For Exam: Shortness of breath PORTABLE CHEST: INDICATION: Shortness of breath COMPARISON: 03/01/2023 Obtained at 0523 hours. A single portable AP radiograph of the chest was obtained. The heart is borderline in size. The mediastinal silhouette is normal. There are bilateral infiltrates and pulmonary congestion. A right effusion is present. There is no pleural thickening. Arthritic changes of the spine and shoulders are present. The patient has undergone prior open heart surgery. The [place]-Jose catheter has been removed in the interim. The mediastinal tube is unchanged. [facility] Emiliano Domínguez DO - 03/02/2023 Patient Name: VIDAL KAY : 1945 Exam Date/Time: 03/02/2023 05:24 Procedure: XR CHEST 1 VIEW Ordering Provider: WALSH MATTHEW Reason For Exam: Shortness of breath PORTABLE CHEST: INDICATION: Shortness of breath COMPARISON: 03/01/2023 Obtained at 0523 hours. A single portable AP radiograph of the chest was obtained. The heart is borderline in size. The mediastinal silhouette is normal. There are bilateral infiltrates and pulmonary congestion. A right effusion is present. There is no pleural thickening. Arthritic changes of the spine and shoulders are present. The patient has undergone prior open heart surgery. The [place]-Jose catheter has been removed in the interim. The mediastinal tube is unchanged. IMPRESSION: Pulmonary congestion with bilateral infiltrates, right greater than left. There is a right effusion. Report Dictated on Electronically Signed By: Emiliano Domínguez DO Electronically Signed Date/Time: 03/02/2023 11:41 AM EDT [facility] Radiology Study observation (narrative) [facility] XR Chest Single viewOrdered By: Emiliano Domínguez on 03-02-2023 [facility] Work Phone: BASIC METABOLIC PANELon 11-0 Anion gap [Moles/Vol] 11 mmol/L Normal 3-13 [facility] Comment on above: Performed By: #### L [id number], LAB15 ####Lifter/Driver: KATERINE BOLTON ([phone])[facility])[address] [place] [address] Calcium [Mass/Vol] 8.9 mg/dL Normal 8.4-10.4 [facility] Comment on above: Performed By: #### L AB103, LAB15 ####Lifter/Driver: KATERINE BOLTON ([phone])[facility])[address] [place] [address] Chloride [Moles/Vol] 103 mmol/L Normal 98-107 [facility] Comment on above: Performed By: #### L AB103, LAB15 ####Lifter/Driver: KATERINE BOLTON ([phone])[facility])[address] [place] [address] CO2 [Moles/Vol] 21 mmol/L Low 22-30 [facility] Comment on above: Performed By: #### L AB103, LAB15 ####Lifter/Driver: KATERINE BOLTON ([phone])[facility])[address] [place] [address] Creatinine [Mass/Vol] 0.77 mg/dL Normal 0.66-1.25 [facility] Comment on above: Performed By: #### L AB103, LAB15 ####Lifter/Driver: KATERINE BOLTON ([phone])[facility])[address] [place] [address] GLOMERULAR FILTRATION RATE ML/MIN/1.73 SQ M.PREDICTED >90.0 Normal >60.0 [facility] Comment on above: Result Comment: Calc ulation based on the Chronic Kidney Disease Epidemiology Collaboration (CKD-EPI) equation refit without adjustment for race Performed By: #### L AB103, LAB15 ####Lifter/Driver: KATERINE BOLTON ([id number])[facility] ([facility])[address] [place] [address] Glucose [Mass/Vol] 124 mg/dL High 70-100 [facility] Comment on above: Performed By: #### L AB103, LAB15 ####Lifter/Driver: KATERINE BOLTON ([id number])[facility])[address] [place] [address] Potassium [Moles/Vol] 4.4 mmol/L Normal 3.5-5.1 [facility] Comment on above: Performed By: #### L AB103, LAB15 ####Lifter/Driver: KATERINE BOLTON ([phone])[facility])[address] [place] [address] Sodium [Moles/Vol] 135 mmol/L Normal 135-145 [facility] Comment on above: Performed By: #### L AB103, LAB15 ####Lifter/Driver: KATERINE BOLTON ([id number])[facility])[address] [place] [address] Urea nitrogen [Mass/Vol] 25 mg/dL High 9-20 [facility] Comment on above: Performed By: #### L AB103, LAB15 ####Lifter/Driver: KATERINE BOLTON ([id number])[facility])[address] [place] [address] BLOOD TYPE AND SCREEN GELon 03-01-2023 ABO GROUPING O Normal [facility] Comment on above: Performed By: #### L [id number] ####Lifter/Driver: KATERINE [id number])[facility] ([facility])[address] [place] [address] RH TYPE IN BLOOD Positive Normal [facility] Comment on above: Performed By: #### L [id number] ####Lifter/Driver: KATERINE BOLTON ([id number])[facility] ([facility])[address] [place] [address] Basic metabolic 1998 panelon 03-01-2023 Anion gap [Moles/Vol] 11 mmol/L 3 - 13 mmol/L [facility] Calcium [Mass/Vol] 8.9 mg/dL 8.4 - 10. 4 mg/dL [facility] Chloride [Moles/Vol] 103 mmol/L 98 - 10 7 mmol/L [facility] CO2 [Moles/Vol] 21 mmol/L Low 22 - 30 mmol/L [facility] Creatinine [Mass/Vol] 0.77 mg/dL 0.66 - 1.25 mg/dL [facility] GFR/1.73 sq M.predicted MDRD (S/P/Bld) [Vol rate/Area] - PINF [facility] Comment on above: Calculation based on the Chronic Kidney Disease Epidemiology Collaboration (CKD-EPI) equation refit without adjustment for race Glucose [Mass/Vol] 124 mg/dL High 70 - 100 mg/dL [facility] Interpretation and review of laboratory results Abnormal [facility] Potassium [Moles/Vol] 4.4 mmol/L 3.5 - 5.1 mmol/L [facility] Sodium [Moles/Vol] 135 mmol/L 135 - 145 mmol/L [facility] Urea nitrogen [Mass/Vol] 25 mg/dL High 9 - 20 mg/dL [facility] Blood type and Crossmatch pa gary (Bld)on 03-01-2023 ABO group Nom (Bld) O [facility] Blood group antibody screen GEL Ql Negative [facility] D Ag Ql (RBC) [facility] CALCIUM, IONIZEDon 3 CALCIUM IONIZED 4.40 mg/dL Normal 4.30-5.20 [facility] Comment on above: Order Comment: Obtai n PRN and check ionized Ca level if serum Ca level less than 8.0 Performed By: #### L AB54 ####Lifter/Driver: KATERINE BOLTON ([id number])[facility] ([facility])[address] [place] [address] PH, IONIZED CALCIUM 7.41 Normal 7.31-7.46 [facility] [facility] Comment on above: Order Comment: Obtai n PRN and check ionized Ca level if serum Ca level less than 8.0 Performed By: #### L AB54 ####Lifter/Driver: KATERINE BOLTON ([id number])[facility] [place] [address] CARECOORDon 03-01-2023 [place] Care Managment Initi al Assessment Date: 03/01/2023 Patient Name: Vidal Kay : 1945 Patient Information Source of Information: Patient Cognition/Language: WFL - Within Functional Limits Permission given to speak with patient traffic workforce representative/caregive r as indicated: Confirmation of Payer with patient/family: Yes Payer Name: [employer] Medicare [place]: Yes Confirmation of Primary Care Physician: Confirmed PCP Name: Dr. Bill Seen in last 2 years?: Yes Primary Caregiver: Self If assistance needed, confirmed caregiver ready, willing and able to care for patient at discharge: Confirmed with: Living Arrangements Current Residence: House Number of Floors 2 (but lives on top level) Number of Entry Steps: (13 interior steps to 2nd level) Bed/Bath Levels: Both second floor Facility: Facility Name: Plan to Return: Lives with: Spouse/significant other Support Systems: Spouse/significant other Activities of Daily Living Ambulation: Independent Bathing/Dressing: Independent Elimination/Continence/ Toileting: Independent Feeding: Independent Who Assists with Activities of Daily Living: Instrumental Activities of Daily Living Prescription Coverage: Yes Pharmacy Used: [facility] Medication Management: Independent Transportation/Shopping : Independent Transportation Mode: Car Needs Assistance with Transportation at Discharge: No Meal Preparation: Independent Laundry/Cleaning: Independent Finances/Bill Paying: Independent Communication: Independent Types of Care Services/Equipment Utilized Care Services: Dialysis Type: Durable Medical Equipment: Patient's Goal/Discharge Plan Patient expects to be discharged to: home Discharge Planning Actions: Continue to follow Patient's Choice Rights and [employer] and Collaborative Relationships Disclosed as Indicated for Post-Acute Care: Interdisciplinary Team Engagement: PT/OT, Home Health Care Social Work Referral for: Additional Information: Patient admitted to [facility] ICU s/p CABG x 2 and AVR POD # 1. Spoke with patient at bedside, introduced self and role. Patient from home with , is independent, has PCP and prescription coverage, will have a ride home and PEÑA following for home care needs. Susie Mitchell RN Normal [facility] CBC (HEMOGRAM)on 03-01-2023 Erythrocyte distribution width (RBC) [Ratio] 15.9 % High 11.5-14.5 [facility] Comment on above: Performed By: #### L AB294 ####Lifter/Driver: KATERINE BOLTON ([id number])[address] ERYTHROCYTE MEAN CORPUSCULAR HEMOGLOBIN CONCENTRATION (G/DL) BY AUTOMATED 32.7 % Normal 32.0-36.0 [facility] Comment on above: Performed By: #### L AB294 ####Lifter/Driver: KATERINE BOLTON ([id number])[address] Hematocrit (Bld) [Volume fraction] 21.9 % Low 40.0-52.0 [facility] Comment on above: Performed By: #### L AB294 ####Lifter/Driver: KATERINE BOLTON ([id number])[address] Hemoglobin (Bld) [Mass/Vol] 7.2 g/dL Low 13.0-18.0 [facility] Comment on above: Performed By: #### L AB294 ####Lifter/Driver: KATERINE [id number])[address] MCH (RBC) [Entitic mass] 25.9 pg Low 26.0-34.0 [facility] Comment on above: Performed By: #### L AB294 ####Lifter/Driver: KATERINE [id number])[facility])[address] [place] [address] MCV (RBC) [Entitic vol] 79.2 fL Low 80.0-98.0 S [facility] Comment on above: Performed By: #### L [id number] ####Lifter/Driver: KATERINE BOLTON ([id number])[facility])[address] [place] [address] Platelet mean volume (Bld) [Entitic vol] 7.1 fL Low 7.4-12.4 [facility] Comment on above: Performed By: #### L AB294 ####Lifter/Driver: KATERINE BOLTON ([id number])[address] Platelets (Bld) [#/Vol] 199 10*3/uL Normal 140-440 [facility] Comment on above: Performed By: #### L AB294 ####Lifter/Driver: KATERINE BOLTON ([id number])[facility])[address] [place] [address] RBC (Bld) [#/Vol] 2.76 10*6/uL Low 4.40-5.90 [facility] Comment on above: Performed By: #### L AB294 ####Lifter/Driver: KATERINE BOLTON ([id number])[address] WBC (Bld) [#/Vol] 9.4 10*3/uL Normal 3.6-10.7 [facility] Comment on above: Performed By: #### L AB294 ####Lifter/Driver: KATERINE BOLTON ([id number])[facility])[address] [place] [address] CBC panel Auto (Bld)Ordered By: Luly Garibay on 03-01-2023 Erythrocyte distribution width (RBC) [Ratio] 15.9 % High 11.5 - 14.5 % [facility] Hematocrit (Bld) [Volume fraction] 21.9 % Low 40.0 - 52.0 % [facility] Hemoglobin (Bld) [Mass/Vol] 7.2 g/dL Low 13.0 - 18.0 g/dL [facility] Interpretation and review of laboratory results Abnormal [facility] MCH (RBC) [Entitic mass] 25.9 pg Low 26.0 - 34.0 pg [facility] MCHC (RBC) [Mass/Vol] 32.7 % 32.0 - 36.0 % [facility] MCV (RBC) [Entitic vol] 79.2 fL Low 80.0 - 98.0 fL [facility] Platelet mean volume (Bld) [Entitic vol] 7.1 fL Low 7.4 - 12.4 fL [facility] Platelets (Bld) [#/Vol] 199 10*3/uL 140 - 440 10*3/uL [facility] RBC (Bld) [#/Vol] 2.76 10*6/uL Low 4.40 - 5.90 10*6/uL [facility] WBC (Bld) [#/Vol] 9.4 10*3/uL 3.6 - 10.7 10*3/uL [facility] Calcium.ionized [Moles/Vol]o n 03-01-2023 Calcium.ionized (Bld) [Moles/Vol] 4.40 mg/dL 4.30 - 5.20 mg/dL [facility] Interpretation and review of laboratory results Normal [facility] PH, IONIZED CALCIUM 7.41 7.31 - 7.46 [facility] Consulton 03-01-2023 Consult --- Attestation signed by Celsa Grissom MD at 03/01/2023 5:18 PM Attending Supervising Physician's Attestation Statement The patient is a 78 y.o. male. I have performed a history and physical examination of the patient. I discussed the case with the nurse practitioner. 78-year-old patient with history of type 2 diabetes and was admitted for CABG and bioprosthetic AVR for CAD and nonrheumatic aortic valve stenosis. Patient was seen at bedside with his family History obtained from both patient and family member Patient feels tired Had a small portion of breakfast and had vomiting. Appetite remains poor Diabetes is fairly controlled with an A1c of 7.3% Takes Farxiga 10 Mg daily, glipizide 10 Mg 1 tablet daily , Lantus 15 units daily Uses a dexcom . Currently not in use On Exam Patient is AAOX 3 Sleepy but arousable CVS:S1S2+ ON telemetry RS: Chest tubes noted I reviewed the patient's Past Medical History, Past Surgical History, Medications, and Allergies. Physical Exam: Vitals: 03/01/23 1145 03/01/23 1200 03/01/23 1215 03/01/23 1230 BP: BP Location: Patient Position: Pulse: 53 53 52 52 Resp: 17 17 13 17 Temp: 36.2 ?C (97.2 ?F) 36.2 ?C (97.2 ?F) 36.2 ?C (97.2 ?F) 36.2 ?C (97.2 ?F) TempSrc: SpO2: (!) 86% 98% 95% 96% Weight: Height: Assessment Type 2 diabetes with hyperglycemia and long-term insulin use CAD s/p CABG Aortic valve stenosis s/p AVR Hypertension Hyperlipidemia Recommendations Continue Insulin drip per protocol today . Based on clinic status should be able to transition to subcutaneous insulin by tomorrow Impression/Plan I reviewed and agree with the findings and plan documented in her note . I personally saw and evaluated the patient. I reviewed and agree with the JULIO's documentation. I provided a substantive portion of the care of this patient. I personally performed the medical decision making in entirety for the encounter as mentioned above Department of Internal Medicine Division of Endocrinology, Diabetes, & Metabolism Endocrinology Note Patient Name: Vidal Kay : 1945 AGE: 78 y.o. Room/Bed: T1-101/T1101 A Admission Date: 02/28/2023 Visit Date: 03/01/2023 Reason for Endocrine Consult: post op heart Provider/Team Requesting Consult: cts PCP: Felix Bill [employer]pt [employer]: No ASSESSMENT: Stress hyperglycemia DM2 with hyperglycemia without long term care administrator insulin Cabgx2, AVR CAD/ HTN/HLD PLAN: Continue on insulin gtt per protocol ICU goal <180 GMF goal <150 POCT BG Q 1 Hypoglycemia per protocol Carb controlled diet ANTICIPATED ENDOCRINE HOME GOING RECOMMENDATIONS: Optimized for Discharge from Endocrine standpoint: No Home Going Endocrine Rx Recommendations-- tbd Outpt Follow Up-- Pcp and states he sees katelyn endocrine SUBJECTIVE/HPI: CHIEF COMPLAINT: No chief complaint on file. Cabgx2, AVR History of DM2 managed outpatient by PCP BGL below Resting in bed Awake Vss- RA Tired- does c/o pain States he ate bfast this am Denies nv abd pain Insulin gtt 3/hr Amio gtt on Does wear dexcom g6- on right arm- no lifter/driver with him States bgl usually controlled at home Spoke to nursing and CTS Type of DM: 2 Onset of DM: 7 years ago Home DM Medication Regimen: farxiga 10, glipizide 10 daily, lantus pens 15 hs DM control (last A1c/glucose data): Lab Results Component Value Date HGBA1C 7.3 (H) 02/19/2023 Glucose Date/Time Value Ref Range Status 03/01/2023 08:41 AM 176 (H) 70 - 100 mg/dL Final 03/01/2023 07:23 AM 176 (H) 70 - 100 mg/dL Final 03/01/2023 05:18 AM 153 (H) 70 - 100 mg/dL Final 03/01/2023 02:37 AM 152 (H) 70 - 100 mg/dL Final 03/01/2023 01:12 AM 132 (H) 70 - 100 mg/dL Final 02/28/2023 11:01 PM 129 (H) 70 - 100 mg/dL Final Review of Systems All other systems reviewed and are negative. ROS negative except for those mentioned in HPI. OBJECTIVE: Vitals: 03/01/23 0645 03/01/23 0700 03/01/23 0715 03/01/23 0857 BP: BP Location: Patient Position: Pulse: (!) 117 108 (!) 120 Resp: (!) 11 (!) 9 (!) 11 Temp: TempSrc: SpO2: 97% 96% 96% Weight: Height: 5' 6.5 (1.689 m) Physical Exam Vitals and nursing note reviewed. Constitutional: General: He is not in acute distress. Appearance: He is ill-appearing. He is not toxic-appearing. HENT: Head: Normocephalic and atraumatic. Cardiovascular: Rate and Rhythm: Normal rate. Pulmonary: Effort: Pulmonary effort is normal. Abdominal: General: There is no distension. Palpations: Abdomen is soft. Skin: General: Skin is warm and dry. Comments: Intact incision Neurological: Mental Status: He is alert and (more content not included)... Normal [facility] HEMOGLOBIN AND HEMATOCRIT, B LOODon 03-01-2023 Hematocrit (Bld) [Volume fraction] 26.6 % Low 40.0-52.0 [facility] Comment on above: Order Comment: Recom mend 1 hour post transfusion Performed By: #### L [id number] ####Lifter/Driver: KATERINE BOLTON ([id number])[address] Hemoglobin (Bld) [Mass/Vol] 8.7 g/dL Low 13.0-18.0 [facility] Comment on above: Order Comment: Recom mend 1 hour post transfusion Performed By: #### L AB753 ####Lifter/Driver: KATERINE BOLTON ([id number])[facility] ([facility])[address] [place] [address] Hemoglobin (Bld) [Mass/Vol]O rdered By: Olivia Mccoy on 03-01-2023 Hematocrit (Bld) [Volume fraction] 26.6 % Low 40.0 - 52.0 % [facility] Interpretation and review of laboratory results Abnormal [facility] Laboratory - Chemistry and C hemistry - challengeon 03-01-2023 Glucose [Mass/Vol] 154 mg/dL High 70 - 100 mg/dL [facility] Glucose [Mass/Vol] 169 mg/dL High 70 - 100 mg/dL [facility] Glucose [Mass/Vol] 167 mg/dL High 70 - 100 mg/dL [facility] Glucose [Mass/Vol] 181 mg/dL High 70 - 100 mg/dL [facility] Glucose [Mass/Vol] 175 mg/dL High 70 - 100 mg/dL [facility] Glucose [Mass/Vol] 184 mg/dL High 70 - 100 mg/dL [facility] Glucose [Mass/Vol] 182 mg/dL High 70 - 100 mg/dL [facility] Glucose [Mass/Vol] 159 mg/dL High 70 - 100 mg/dL [facility] Glucose [Mass/Vol] 183 mg/dL High 70 - 100 mg/dL [facility] Glucose [Mass/Vol] 202 mg/dL High 70 - 100 mg/dL [facility] Glucose [Mass/Vol] 200 mg/dL High 70 - 100 mg/dL [facility] Glucose [Mass/Vol] 176 mg/dL High 70 - 100 mg/dL [facility] Glucose [Mass/Vol] 176 mg/dL High 70 - 100 mg/dL [facility] Glucose [Mass/Vol] 153 mg/dL High 70 - 100 mg/dL [facility] Glucose [Mass/Vol] 152 mg/dL High 70 - 100 mg/dL [facility] Glucose [Mass/Vol] 132 mg/dL High 70 - 100 mg/dL [facility] Magnesium [Mass/Vol] 2.3 mg/dL 1.6 - 2 .3 mg/dL [facility] Laboratory - Coagulationon 05-01-2022 aPTT Coag (PPP) [Time] 34.9 s High 20.0 - 30.5 s [facility] INR Coag (PPP) [Relative time] 1.1 {INR} 0.9 - 1.1 [facility] Comment on above: Recommended Anticoag ulant Therapy: SEE BELOW ----- INR of 2.0 - 3.0 : - Prophylaxis of Venous Thrombosis (high-risk surgery) - Treatment of Venous Thrombosis - Treatment of Pulmonary Embolism (Includes tissue heart valves, Acute Myocardial Infarction to prevent systemic embolism, Valvular Heart Disease, and Atrial Fibrillation) ----- INR of 2.5 - 3.5 : - Mechanical Prosthetic Valves (high risk) - If oral anticoagulant therapy is used to prevent Myocardial Infarction PT Coag (Bld) [Time] 11.4 s 9.0 - 1 2.0 s [facility] Laboratory - Hematology and Cell countsOrdered By: Olivia Mccoy on 03-01-2023 Hemoglobin (Bld) [Mass/Vol] 8.7 g/dL Low 13.0 - 18.0 g/dL [facility] MAGNESIUMon 03-01-2023 Magnesium [Mass/Vol] 2.3 mg/dL Normal 1.6-2.3 [facility] Comment on above: Performed By: #### L AB103, LAB15 ####Lifter/Driver: KATERINE BOLTON ([id number])[facility] ([facility])[address] [place] [address] Magnesium [Mass/Vol]on 03-01 Interpretation and review of laboratory results Normal [facility] No Panel Informationon 03-01 Interpretation and review of laboratory results Abnormal [facility] Performed by: [facility], [address] [place] [id number] CLIA ID: [id number] [facility] Interpretation and review of laboratory results Abnormal [facility] Performed by: [facility] [place] [facility], [address] [place] [address] CLIA ID: [id number] [facility] Interpretation and review of laboratory results Abnormal [facility] Performed by: [facility], [address] [place] [address] CLIA ID: [id number] [facility] Interpretation and review of laboratory results Abnormal [facility] Performed by: [facility] [employer] [facility], [address] [place] [address] CLIA ID: [id number] [facility] Interpretation and review of laboratory results Abnormal [facility] Performed by: [facility], [address] [place] [address] CLIA ID: [id number] [facility] Interpretation and review of laboratory results Abnormal [facility] Performed by: [facility] [employer] [facility], [address] [place] [address] CLIA ID: [id number] [facility] Interpretation and review of laboratory results Abnormal [facility] Performed by: [facility], [address] [place] [address] [place] [address] CLIA ID: [id number] [facility] Interpretation and review of laboratory results Abnormal [facility] Performed by: [facility], [address] [place] [address] [place] [address] CLIA ID: [id number] [facility] Interpretation and review of laboratory results Abnormal [facility] Performed by: [facility], [address] [place] [address] CLIA ID: [id number] [facility] Interpretation and review of laboratory results Abnormal [facility] Performed by: [facility], [address] [place] [address], [facility] [address] CLIA ID: [id number] [facility] Blood Expiration Date [id number] S [facility] Crossmatch interpretation COMP [facility] Dispense Status Transfused [facility] Product Blood Type 5100 [facility] PRODUCT CODE [id number] [facility] ABO O [facility] Number [id number] [facility] RH Positive [facility] Volume 300 mL [facility] Interpretation and review of laboratory results Abnormal [facility] Performed by: [facility], [address] [place] [address] CLIA ID: [id number] [facility] Interpretation and review of laboratory results Abnormal [facility] Performed by: [facility], [address] [place] [address] [place] [address] CLIA ID: [id number] [facility] Interpretation and review of laboratory results Abnormal [facility] Performed by: [facility], [address] [place] [address] [place] [address] CLIA ID: [id number] [facility] Interpretation and review of laboratory results Abnormal [facility] Performed by: [facility], [address] [place] [address] [place] [address] CLIA ID: [id number] [facility] Interpretation and review of laboratory results Abnormal [facility] Performed by: [facility], [address] [place] [address] [place] [address] CLIA ID: [id number] [facility] Interpretation and review of laboratory results Abnormal [facility] Performed by: [facility], [address] [address] CLIA ID: [id number] [facility] Interpretation and review of laboratory results Abnormal [facility] PROTIME AND APTTon aPTT Coag (Bld) [Time] 34.9 s High 20.0-30.5 [facility] Comment on above: Performed By: #### L [id number] ####Lifter/Driver: KATERINE BOLTON ([id number])[facility])[address] [place] [address] INR Coag (PPP) [Relative time] 1.1 {INR} Normal 0.9-1.1 [facility] Comment on above: Result Comment: Duong mmended Anticoagulant Therapy: SEE BELOW ----- INR of 2.0 - 3.0 : - Prophylaxis of Venous Thrombosis (high-risk surgery) - Treatment of Venous Thrombosis - Treatment of Pulmonary Embolism (Includes tissue heart valves, Acute Myocardial Infarction to prevent systemic embolism, Valvular Heart Disease, and Atrial Fibrillation) ----- INR of 2.5 - 3.5 : - Mechanical Prosthetic Valves (high risk) - If oral anticoagulant therapy is used to prevent Myocardial Infarction Performed By: #### [place] [id number] ####Lifter/Driver: KATERINE BOLTON ([id number])[facility])[address] [place] [address] PT Coag (PPP) [Time] 11.4 s Normal 9.0-12.0 [facility] Comment on above: Performed By: #### L [id number] ####Lifter/Driver: KATERINE BOLTON ([id number])[facility])[address] [place] [address] Progress Noteon 03-01-2023 Progress Note Pt HR has recovered - his CI is 2.4 / SVR 1200 / CVP 18 - Keep on dobutamine 2.5 maps >65 - get up out of bed to chair - give lasix tonight 40 mg . Normal [facility] Progress Note --- Attestation signed by Silke Worthy MD at 03/01/2023 2:49 PM Attending Supervising Physician's Attestation Statement I reviewed the patient's chart and agree as documented in the resident physician's note. Transfusion Medicine Resident Review Note Product type: 1 unit of pRBC, O positive Reason for Review: Hemoglobin > 7.0 g/dL Indications for Transfusion: The patient is s/p CABG on 02/28/2023. The patient's hemoglobin is 7.2 g/dl. Result of Review: APPROVED: Product to be issued Please contact the blood bank if there are any issues receiving the product for transfusion at *[phone] ([facility]) or *[phone] ([facility]) [facility] Progress Note --- Attestation signed by Yasmani Matt MD at 03/01/2023 2:28 PM I have personally seen the patient and examined along with the JULIO/resident team. I personally obtained the vaughan and relevent portions of the history and performed physical exam. I reviewed the chart including MAR , labs and radiology and discussed the patient's plan of action with the resident/JULIO. This note reflects my plan of care as I have edited the note to reflect my findings and my assessment and plan. Date of service: 03/01/23 Discussed with: []Residents[x]Patient/F kenneth [x]RN [x]Consultants []SW/TCC[]Other [x]JULIO Personally Reviewed: [x]Epic notes[x]Radiology studies [x]Labs [x]EKG []Other Assessment: -mvCAD s/p CABG -non-rheumatic aortic valve stenosis s/p bioprosthetic AVR -HTN -HLD -Prior tobacco use -DM2 -Ulcerative colitis -reactive leukocytosis -ABLA Plan: -CI dropped after patient developed post-op atrial fibrillation. He also received afterload reducing medications. Will keep swan for now. Start dobutamine with high SVR and low CI. Wean norepi. -Will transfuse 1 PRBC and give gentle crystalloid bolus -Keep arterial line at least until CI stabilizes and vasoactive meds weaned off -Keep correa -hold on lasix for now -Continue post-op pulmonary hygiene measures -Mobilize to chair later today pending hemodynamics. -Remainder as per JULIO documentation Excluding procedures, the total critical care time invested in the care of this patient with life threatening/unstable organ failure today is at least 35 minutes. This includes direct patient contact, review of medical record, management of life support systems, review of data including imaging and labs, discussions with other team members, patient's family and physicians. Cardiothoracic Surgery/[facility] Progress Note PATIENT NAME: Vidal Kay DATE: 03/01/23 HPI: Vidal Kay is a 78 y.o. male referred by Dr. Baig for severe coronary artery bypass surgery and a aortic valve replacement. He presented as an OP for AVR and CABG x [address] Rodríguez. Surgery: 02/28/23 Rodríguez: CABG x 2, Tissue AVR, LEVH Interval History: 03/01/23, POD#2 Over night pt went into A-fib and was bolused and loaded with amiodarone IV - HR 100-140's, CXR wet, CT Output >500. He was actually HTN until he went into A-Fib. No acute issues, labs HGB 7.2 Review of Systems Constitutional: Negative for diaphoresis, fatigue and fever. Respiratory: Positive for shortness of breath. Negative for cough and wheezing. Cardiovascular: Positive for chest pain. Negative for palpitations and leg swelling. Gastrointestinal: Negative for abdominal distention, constipation and diarrhea. Skin: Negative for color change, pallor and rash. Objective: Vitals: BP: (!) 176/63, MAP (mmHg): 96, BP Method: Arterial line Heart Rate: 106 Resp: 13 Temp: 37 ?C (98.6 ?F), Temp Source: Core BMI (Calculated): 24.75 Pacer Wires: capped CXR: BMP: Recent Labs 02/28/23 1029 03/01/23 0005 NA 138 135 K 4.6 4.4 CL 104 103 CO2 22 21* BUN 24* 25* CREATININE 0.78 0.77 CALCIUM 9.9 8.9 MG 4.1* 2.3 PHOS 4.0 -- CBC: Recent Labs 02/28/23 1029 02/28/23 1232 03/01/23 0005 WBC 11.0* 16.7* 9.4 HGB 9.0 7.5* 8.8* 7.2* HCT 23.0* 27.3* 21.9* PLT 203 228 199 MCV 79.4* 79.4* 79.2* RDW 15.8* 16.0* 15.9* INR: Recent Labs 02/28/23 1029 03/01/23 0005 INR 1.3* 1.1 Physical Exam Cardiovascular: Rate and Rhythm: Normal rate and regular rhythm. Heart sounds: Normal heart sounds. No murmur heard. No friction rub. Pulmonary: Effort: Pulmonary effort is normal. Skin: General: Skin is warm and dry. Capillary Refill: Capillary refill takes less than 2 seconds. Findings: Bruising and ecchymosis present. Comments: MSCI Dry and intact RIJ swan\ CT sites intact Neurological: Mental Status: He is alert. Psychiatric: Behavior: Behavior is cooperative. Assessment: CAD Aortic Valve stenosis S/P Tissue AVR HTN HLD Former smoker DM II Plan - DC swan - DC art line - UOOB to chair - change to PO protonix - Heparin for DVT - start home meds hold home SEAN - give lasix 40 mg IVP x 1 - Amiodarone re-bolus - Start metoprolol - Wean nipride then DC - leave correa for one more day - PT/OT today eval - Start OAC tomorrow for tissue valve - monitor gastric bubble - Discuss with attending the transfusion of one unit of blood then the lasix - Start Reglan for gastric bubble [facility] XR CHEST 1 VIEWon 03-01-2023 XR CHEST 1 VIEW Patient Name: VIDAL HIRSCH : 1945 Exam Date/Time: 03/01/2023 05:14 Procedure: XR CHEST 1 VIEW Ordering Provider: WALSH MATTHEW Reason For Exam: Shortness of breath CHEST RADIOGRAPH CLINICAL INDICATION: Shortness of breath TECHNIQUE: AP COMPARISON: 02/28/2023 chest radiograph FINDINGS: Stable positioning of right IJ Hickory-Jose catheter and mediastinal drain. Cardiomediastinal: The cardiomediastinal silhouette is stable in size and configuration. Lungs: Small bilateral pleural effusions with associated atelectasis, right greater than left. Increased interstitial lung markings concerning for pulmonary edema. No pneumothorax. Osseous structures: No acute osseous abnormality. IMPRESSION: See findings. Report Dictated on Electronically Signed By: Ravinder Garnett MD Electronically Signed Date/Time: 03/01/2023 5:25 AM EDT [facility] XR Chest Single viewon 03-01 See findings. Report Dictated on Electronically Signed By: Ravinder Garnett MD Electronically Signed Date/Time: 03/01/2023 5:25 AM EDT [facility] Patient Name: VIDAL HIRSCH : 1945 Exam Date/Time: 03/01/2023 05:14 Procedure: XR CHEST 1 VIEW Ordering Provider: WALSH MATTHEW Reason For Exam: Shortness of breath CHEST RADIOGRAPH CLINICAL INDICATION: Shortness of breath TECHNIQUE: AP COMPARISON: 02/28/2023 chest radiograph FINDINGS: Stable positioning of right IJ Hickory-Jose catheter and mediastinal drain. Cardiomediastinal: The cardiomediastinal silhouette is stable in size and configuration. Lungs: Small bilateral pleural effusions with associated atelectasis, right greater than left. Increased interstitial lung markings concerning for pulmonary edema. No pneumothorax. Osseous structures: No acute osseous abnormality. [facility] Ravinder Garnett MD - 03/01/2023 Patient Name: VIDAL KAY : 1945 [id number] Exam Date/Time: 03/01/2023 05:14 Procedure: XR CHEST 1 VIEW Ordering Provider: WALSH MATTHEW Reason For Exam: Shortness of breath CHEST RADIOGRAPH CLINICAL INDICATION: Shortness of breath TECHNIQUE: AP COMPARISON: 02/28/2023 chest radiograph FINDINGS: Stable positioning of right IJ Hickory-Jose catheter and mediastinal drain. Cardiomediastinal: The cardiomediastinal silhouette is stable in size and configuration. Lungs: Small bilateral pleural effusions with associated atelectasis, right greater than left. Increased interstitial lung markings concerning for pulmonary edema. No pneumothorax. Osseous structures: No acute osseous abnormality. IMPRESSION: See findings. Report Dictated on Electronically Signed By: Ravinder Garnett MD Electronically Signed Date/Time: 03/01/2023 5:25 AM EDT [facility] Radiology Study observation (narrative) [facility] XR Chest Single viewOrdered By: Ravinder Garnett on 03-01-2023 [facility] Work Phone: [phone] 02-28-2023 [id number] Sales Management Trainee following case for Discharge Needs. Normal [facility] BASIC METABOLIC PANELon 11-0 Anion gap [Moles/Vol] 12 mmol/L Normal 3-13 [facility] Comment on above: Performed By: #### L [id number], [id number], LAB15 ####Lifter/Driver: KATERINE BOLTON ([id number])[facility] ([facility])[address] [place] [address] [place] Calcium [Mass/Vol] 9.9 mg/dL Normal 8.4-10.4 [facility] Comment on above: Performed By: #### L AB103, [id number], LAB15 ####Lifter/Driver: KATERINE BOLTON ([phone])[facility] [place] [address] [place] Chloride [Moles/Vol] 104 mmol/L Normal 98-107 [facility] Comment on above: Performed By: #### L AB103, [id number], LAB15 ####Lifter/Driver: KATERINE BOLTON ([phone])[facility] [place] [address] CO2 [Moles/Vol] 22 mmol/L Normal 22-30 [facility] Comment on above: Performed By: #### L AB103, [id number], LAB15 ####Lifter/Driver: KATERINE BOLTON ([phone])[facility] [place] [address] Creatinine [Mass/Vol] 0.78 mg/dL Normal 0.66-1.25 [facility] Comment on above: Performed By: #### L AB103, [id number], LAB15 ####Lifter/Driver: KATERINE BOLTON ([phone])[facility] ([facility] [place] [address] GLOMERULAR FILTRATION RATE ML/MIN/1.73 SQ M.PREDICTED >90.0 Normal >60.0 [facility] Comment on above: Result Comment: Calc ulation based on the Chronic Kidney Disease Epidemiology Collaboration (CKD-EPI) equation refit without adjustment for race Performed By: #### L AB103, [id number], LAB15 ####Lifter/Driver: KATERINE BOLTON ([phone])[facility] [place] [address] [place] Glucose [Mass/Vol] 117 mg/dL High 70-100 [facility] Comment on above: Performed By: #### L AB103, [id number], LAB15 ####Lifter/Driver: KATERINE BOLTON ([phone])[facility] ([facility])[address] [place] [address] Potassium [Moles/Vol] 4.6 mmol/L Normal 3.5-5.1 [facility] Comment on above: Performed By: #### L AB103, GVA116, LAB15 ####Lifter/Driver: KATERINE BOLTON ([phone])[facility] ([facility])[address] [place] [address] Sodium [Moles/Vol] 138 mmol/L Normal 135-145 [facility] Comment on above: Performed By: #### L AB103, [id number], LAB15 ####Lifter/Driver: KATERINE BOLTON ([phone])[facility])[address] [place] [address] Urea nitrogen [Mass/Vol] 24 mg/dL High 9-20 [facility] Comment on above: Performed By: #### L AB103, [id number], LAB15 ####Lifter/Driver: KATERINE BLOTON ([phone])[facility] ([facility])[address] [place] [address] BLOOD GAS ARTERIALon 023 Base excess Calc (Bld) [Moles/Vol] -1.5000 mmol/L Normal -3.0-3.0 [facility] Comment on above: Performed By: #### L AB76 ####Lifter/Driver: KATERINE BOLTON ([phone])[facility] ([facility])[address] [place] [address] [place] CO2 [Moles/Vol] 23.7 mmol/L Normal 23.0-27.0 [facility] Comment on above: Performed By: #### L AB76 ####Lifter/Driver: KATERINE BOLTON ([phone])[facility])[address] [place] [address] HCO3 (Bld) [Moles/Vol] 22.6 mmol/L Normal 21.0-25.0 [facility] Comment on above: Performed By: #### L AB76 ####Lifter/Driver: KATERINE BOLTON ([id number])[facility] ([facility])[address] [place] [address] Hemoglobin (Bld) [Mass/Vol] 9.0 g/dL Normal Screen Only [facility] Comment on above: Performed By: #### L AB76 ####Lifter/Driver: KATERINE BOLTON ([id number])[facility] ([facility])[address] [place] [address] OXYGEN SATURATION (%) IN ARTERIAL BLOOD 99.0 % Normal 95.0-100.0 [facility] Comment on above: Performed By: #### L AB76 ####Lifter/Driver: KATERINE BOLTON ([phone])[facility] ([facility])[address] [place] [address] PCO2 ARTERIAL 35.2 mm Hg Normal >35.0-<45. 0 [facility] Comment on above: Performed By: #### L AB76 ####Lifter/Driver: KATERINE BOLTON ([phone])[facility] ([facility])[address] [place] [address] PH ARTERIAL 7.425 Normal 7.350-7.45 0 [facility] Comment on above: Performed By: #### L AB76 ####Lifter/Driver: KATERINE BOLTON ([phone])[facility] ([facility])[address] [place] [address] PO2 ARTERIAL 389.7 mm Hg High 80.0-100.0 [facility] Comment on above: Performed By: #### L AB76 ####Lifter/Driver: KATERINE BOLTON ([phone])[facility] ([facility])[address] [place] [address] SOURCE OF OXYGEN Vent Normal [facility] Comment on above: Result Comment: 100% Performed By: #### L AB76 ####Lifter/Driver: KATERINE BOLTON ([phone])[facility] ([facility])[address] [place] [address] [place] Basic metabolic 1998 panelon 02-28-2023 Anion gap [Moles/Vol] 12 mmol/L 3 - 13 mmol/L [facility] Calcium [Mass/Vol] 9.9 mg/dL 8.4 - 10. 4 mg/dL [facility] Chloride [Moles/Vol] 104 mmol/L 98 - 10 7 mmol/L [facility] CO2 [Moles/Vol] 22 mmol/L 22 - 30 mmol/L [facility] Creatinine [Mass/Vol] 0.78 mg/dL 0.66 - 1.25 mg/dL [facility] GFR/1.73 sq M.predicted MDRD (S/P/Bld) [Vol rate/Area] - PINF [facility] Comment on above: Calculation based on the Chronic Kidney Disease Epidemiology Collaboration (CKD-EPI) equation refit without adjustment for race Glucose [Mass/Vol] 117 mg/dL High 70 - 100 mg/dL [facility] Potassium [Moles/Vol] 4.6 mmol/L 3.5 - 5.1 mmol/L [facility] Sodium [Moles/Vol] 138 mmol/L 135 - 145 mmol/L [facility] Urea nitrogen [Mass/Vol] 24 mg/dL High 9 - 20 mg/dL [facility] CALCIUM, IONIZEDon CALCIUM IONIZED 5.10 mg/dL Normal 4.30-5.20 [facility] Comment on above: Performed By: #### L AB54 ####Lifter/Driver: KATERINE BOLTON ([phone])[address] PH, IONIZED CALCIUM 7.44 Normal 7.31-7.46 [facility] Comment on above: Performed By: #### L AB54 ####Lifter/Driver: KATERINE BOLTON ([phone])[facility] ([facility])[address] [place] [address] CBC (HEMOGRAM)on 02-28-2023 Erythrocyte distribution width (RBC) [Ratio] 16.0 % High 11.5-14.5 [facility] Comment on above: Performed By: #### L [id number] ####Lifter/Driver: KATERINE BOLTON ([id number])[facility])[address] [place] [address] ERYTHROCYTE MEAN CORPUSCULAR HEMOGLOBIN CONCENTRATION (G/DL) BY AUTOMATED 32.4 % Normal 32.0-36.0 [facility] Comment on above: Performed By: #### L [id number] ####Lifter/Driver: KATERINE BOLTON ([id number])[facility])[address] [place] [address] Hematocrit (Bld) [Volume fraction] 27.3 % Low 40.0-52.0 [facility] Comment on above: Performed By: #### L [id number] ####Lifter/Driver: KATERINE BOLTON ([id number])[facility])[address] [place] [address] Hemoglobin (Bld) [Mass/Vol] 8.8 g/dL Low 13.0-18.0 [facility] Comment on above: Performed By: #### L [id number] ####Lifter/Driver: KATERINE BOLTON ([phone])[facility])[address] [place] [address] MCH (RBC) [Entitic mass] 25.7 pg Low 26.0-34.0 [facility] Comment on above: Performed By: #### L AB294 ####Lifter/Driver: KATERINE BOLTON ([id number])[facility])[address] [place] [address] MCV (RBC) [Entitic vol] 79.4 fL Low 80.0-98.0 [facility] Comment on above: Performed By: #### L [id number] ####Lifter/Driver: KATERINE BOLTON ([id number])[facility])[address] [place] [address] Platelet mean volume (Bld) [Entitic vol] 6.5 fL Low 7.4-12.4 [facility] Comment on above: Performed By: #### L [id number] ####Lifter/Driver: KATERINE BOLTON ([id number])[facility])[address] [place] [address] Platelets (Bld) [#/Vol] 228 10*3/uL Normal 140-440 [facility] Comment on above: Performed By: #### L [id number] ####Lifter/Driver: KATERINE BOLTON ([id number])[facility])[address] [place] [address] RBC (Bld) [#/Vol] 3.44 10*6/uL Low 4.40-5.90 [facility] Comment on above: Performed By: #### L [id number] ####Lifter/Driver: KATERINE BOLTON ([id number])[facility])[address] [place] [address] WBC (Bld) [#/Vol] 16.7 10*3/uL High 3.6-10.7 [facility] Comment on above: Performed By: #### L [id number] ####Lifter/Driver: KATERINE BOLTON ([id number])[address] Erythrocyte distribution width (RBC) [Ratio] 15.8 % High 11.5-14.5 [facility] Comment on above: Performed By: #### L [id number] ####Lifter/Driver: KATERINE BOLTON ([id number])[address] ERYTHROCYTE MEAN CORPUSCULAR HEMOGLOBIN CONCENTRATION (G/DL) BY AUTOMATED 32.5 % Normal 32.0-36.0 [facility] Comment on above: Performed By: #### L [id number] ####Lifter/Driver: KATERINE BOLTON ([id number])[facility])[address] [place] [address] Hematocrit (Bld) [Volume fraction] 23.0 % Low 40.0-52.0 [facility] Comment on above: Performed By: #### L [id number] ####Lifter/Driver: KATERINE BOLTON ([id number])[facility])[address] [place] [address] Hemoglobin (Bld) [Mass/Vol] 7.5 g/dL Low 13.0-18.0 [facility] Comment on above: Performed By: #### L [id number] ####Lifter/Driver: KATERINE BOLTON ([id number])[facility])[address] [place] [address] MCH (RBC) [Entitic mass] 25.8 pg Low 26.0-34.0 [facility] Comment on above: Performed By: #### L [id number] ####Lifter/Driver: KATERINE BOLTON ([id number])[facility])[address] [place] [address] MCV (RBC) [Entitic vol] 79.4 fL Low 80.0-98.0 [facility] Comment on above: Performed By: #### L [id number] ####Lifter/Driver: KATERINE BOLTON ([id number])[facility])[address] [place] [address] Platelet mean volume (Bld) [Entitic vol] 7.0 fL Low 7.4-12.4 [facility] Comment on above: Performed By: #### L [id number] ####Lifter/Driver: KATERINE BOLTON ([id number])[facility])[address] [place] [address] Platelets (Bld) [#/Vol] 203 10*3/uL Normal 140-440 [facility] Comment on above: Performed By: #### L [id number] ####Lifter/Driver: KATERINE BOLTON ([id number])[facility])[address] [place] [address] RBC (Bld) [#/Vol] 2.90 10*6/uL Low 4.40-5.90 [facility] Comment on above: Performed By: #### L [id number] ####Lifter/Driver: KATERINE BOLTON ([phone])[facility])[address] [place] [address] WBC (Bld) [#/Vol] 11.0 10*3/uL High 3.6-10.7 [facility] Comment on above: Performed By: #### L [id number] ####Lifter/Driver: KATERINE BOLTON ([id number])[facility] ([address] CBC panel Auto (Bld)on 02-28 Erythrocyte distribution width (RBC) [Ratio] 16.0 % High 11.5 - 14.5 % [facility] Hematocrit (Bld) [Volume fraction] 27.3 % Low 40.0 - 52.0 % [facility] Hemoglobin (Bld) [Mass/Vol] 8.8 g/dL Low 13.0 - 18.0 g/dL [facility] Interpretation and review of laboratory results Abnormal [facility] MCH (RBC) [Entitic mass] 25.7 pg Low 26.0 - 34.0 pg [facility] MCHC (RBC) [Mass/Vol] 32.4 % 32.0 - 36.0 % [facility] MCV (RBC) [Entitic vol] 79.4 fL Low 80.0 - 98.0 fL [facility] Platelet mean volume (Bld) [Entitic vol] 6.5 fL Low 7.4 - 12.4 fL [facility] Platelets (Bld) [#/Vol] 228 10*3/uL 140 - 440 10*3/uL [facility] RBC (Bld) [#/Vol] 3.44 10*6/uL Low 4.40 - 5.90 10*6/uL [facility] WBC (Bld) [#/Vol] 16.7 10*3/uL High 3.6 - 10.7 10*3/uL [facility] CBC panel Auto (Bld)Ordered By: Luna Hoang on 02-28-2023 Erythrocyte distribution width (RBC) [Ratio] 15.8 % High 11.5 - 14.5 % [facility] Hematocrit (Bld) [Volume fraction] 23.0 % Low 40.0 - 52.0 % [facility] Hemoglobin (Bld) [Mass/Vol] 7.5 g/dL Low 13.0 - 18.0 g/dL [facility] Interpretation and review of laboratory results Abnormal [facility] MCH (RBC) [Entitic mass] 25.8 pg Low 26.0 - 34.0 pg [facility] MCHC (RBC) [Mass/Vol] 32.5 % 32.0 - 36.0 % [facility] MCV (RBC) [Entitic vol] 79.4 fL Low 80.0 - 98.0 fL [facility] Platelet mean volume (Bld) [Entitic vol] 7.0 fL Low 7.4 - 12.4 fL [facility] Platelets (Bld) [#/Vol] 203 10*3/uL 140 - 440 10*3/uL [facility] RBC (Bld) [#/Vol] 2.90 10*6/uL Low 4.40 - 5.90 10*6/uL [facility] WBC (Bld) [#/Vol] 11.0 10*3/uL High 3.6 - 10.7 10*3/uL [facility] Calcium.ionized [Moles/Vol]o n 02-28-2023 Calcium.ionized (Bld) [Moles/Vol] 5.10 mg/dL 4.30 - 5.20 mg/dL [facility] Interpretation and review of laboratory results Normal [facility] PH, IONIZED CALCIUM 7.44 7.31 - 7.46 [facility] Consulton 02-28-2023 Consult --- Attestation signed by Yasmani Matt MD at 02/28/2023 7:41 PM I have personally seen the patient and examined along with the JULIO/resident team. I personally obtained the vaughan and relevent portions of the history and performed physical exam. I reviewed the chart including MAR , labs and radiology and discussed the patient's plan of action with the resident/JULIO. This note reflects my plan of care as I have edited the note to reflect my findings and my assessment and plan. Date of service: 02/28/23 Discussed with: []Residents[x]Patient/F audiy [x]RN [x]Consultants []SW/TCC[]Other [x]JULIO Personally Reviewed: [x]Epic notes[x]Radiology studies [x]Labs [x]EKG []Other In addition to resident/JULIO documentation pertinent History, ROS, and/or Physical Exam findings include: 78 year-old male with PMH significant for CAD, non-rheumatic aortic valve disease, HTN, prior tobacco use, DM2, and ulcerative colitis on mesalamine. Presents to ICU s/p bioprosthetic aortic valve replacement and CABGx2. Assessment: -mvCAD s/p CABG -non-rheumatic aortic valve stenosis s/p bioprosthetic AVR -HTN -HLD -Prior tobacco use -DM2 -Ulcerative colitis -reactive leukocytosis -ABLA Plan: -continue lung protective ventilation -Start SBT once awake, alert, with adequate pain control -glycemic control per endo -continue perez-op abx -continue multimodal pain regimen -monitor chest tube output -remainder as per JULIO documentation Excluding procedures, the total critical care time invested in the care of this patient with life threatening/unstable organ failure today is at least 35 minutes. This includes direct patient contact, review of medical record, management of life support systems, review of data including imaging and labs, discussions with other team members, patient's family and physicians. [facility]: Critical Care Consultation Note Date: 02/28/23 PATIENT NAME: Vidal Kay : 1945 (78 y.o.) Reason for Consult: Critical Care & Vent Management HPI: Vidal Kay is a 78 y.o. male referred by Dr. Baig for severe coronary artery bypass surgery and a aortic valve replacement. He presented as an OP for AVR and CABG x [address] Rodríguez. Surgery: 02/28/23 Rodríguez: CABG x 2, Tissue AVR, LEVH Interval History: 02/28/23: POD #0: Patient arrived to the unit, intubated and sedated. Surgical hand off completed below. Review of Systems Constitutional: Negative for diaphoresis, fatigue and fever. Respiratory: Negative for cough, shortness of breath and wheezing. Cardiovascular: Negative for chest pain, palpitations and leg swelling. Gastrointestinal: Negative for abdominal distention, constipation and diarrhea. Skin: Negative for color change, pallor and rash. Allergies: Patient has no known allergies. Past Medical History: has a past medical history of Cancer (CMS/HCC) (HCC), Colitis, Coronary artery disease, Diabetes mellitus (HCC), Heart murmur, and Heart valve disease. Past Surgical History: has a past surgical history that includes Carpal tunnel release; Cardiac catheterization; and Colonoscopy. Social History: reports that he quit smoking about 33 years ago. His smoking use included pipe and cigarettes. He started smoking about 40 years ago. He has a 20.00 pack-year smoking history. His smokeless tobacco use includes chew. He reports that he does not currently use alcohol. He reports that he does not currently use drugs. Family History: family history is not on file. Medications: Prior to Admission medications Medication Sig Start Date End Date Taking? Authorizing Provider ascorbic acid (Vitamin C) 1000 MG tablet Take 1,000 mg by mouth daily. Yes Historical Provider, aspirin 81 MG EC tablet Take 81 mg by mouth daily. Yes Historical Provider, chlorhexidine (Peridex) 0.12 % solution Use 15 mL in the mouth or throat Once for 1 dose. Swish for 30 seconds and spit out the night before surgery. Do not swallow. 02/21/23 02/28/23 Yes Yary Alberts [employer] [facility] REP dapagliflozin (Farxiga) 10 MG Take 10 mg by mouth daily. Yes Historical Provider, ferrous sulfate 325 (65 Fe) MG tablet Take 1 tablet by mouth daily. 10/16/22 Yes Historical Provider, glipiZIDE (Glucotrol) 5 MG tablet Take 10 mg by mouth daily. Yes Historical Provider, glucosamine-chondroitin 500-400 MG tablet Take 1 tablet by mouth 3 times daily. Yes Historical Provider, insulin glargine (Lantus) 100 UNIT/ML injection Inject 15 Units under the skin Nightly. Yes Historical Provider, mesalamine (Lialda) 1.2 g EC tablet Take 2,400 mg by mouth daily (with breakfast). Do not crush, chew, or split. Yes Historical Provider, Multiple Vitamins-Minerals (multivitamin with minerals) tablet (more content not included)... [facility] FIBRINOGEN 02-28-2023 FIBRINOGEN 406 mg/dL High 200-400 [facility] Comment on above: Performed By: #### L [id number], [id number] ####Lifter/Driver: KATERINE BOLTON ([id number])[facility] ([facility])[address] [place] [address] Laboratory - Chemistry and C hemistry - challengeon 02-28-2023 Glucose [Mass/Vol] 129 mg/dL High 70 - 100 mg/dL [facility] Glucose [Mass/Vol] 131 mg/dL High 70 - 100 mg/dL [facility] Glucose [Mass/Vol] 153 mg/dL High 70 - 100 mg/dL [facility] Glucose [Mass/Vol] 153 mg/dL High 70 - 100 mg/dL [facility] Glucose [Mass/Vol] 157 mg/dL High 70 - 100 mg/dL [facility] Glucose [Mass/Vol] 145 mg/dL High 70 - 100 mg/dL [facility] Glucose [Mass/Vol] 141 mg/dL High 70 - 100 mg/dL [facility] Glucose [Mass/Vol] 148 mg/dL High 70 - 100 mg/dL [facility] Glucose [Mass/Vol] 145 mg/dL High 70 - 100 mg/dL [facility] Glucose [Mass/Vol] 143 mg/dL High 70 - 100 mg/dL [facility] Glucose [Mass/Vol] 117 mg/dL High 70 - 100 mg/dL [facility] Glucose [Mass/Vol] 106 mg/dL High 70 - 100 mg/dL [facility] Glucose [Mass/Vol] 111 mg/dL High 70 - 100 mg/dL [facility] Glucose [Mass/Vol] 102 mg/dL High 70 - 100 mg/dL [facility] Magnesium [Mass/Vol] 4.1 mg/dL High 1.6 - 2 .3 mg/dL [facility] Glucose [Mass/Vol] 181 mg/dL High 70 - 100 mg/dL [facility] Laboratory - Chemistry and C hemistry - challengeOrdered By: Bill Harry on 02-28-2023 Base excess Calc (Bld) [Moles/Vol] -1.5000 mmol/L -3.0 - 3.0 mmol/L [facility] CO2 (Bld) [Partial pressure] 35.2 mm[Hg] - PINF [facility] CO2 [Moles/Vol] 23.7 mmol/L 23.0 - 27.0 mmol/L [facility] HCO3 (Bld) [Moles/Vol] 22.6 mmol/L 21.0 - 25.0 mmol/L [facility] Oxygen (Bld) [Partial pressure] 389.7 mm[Hg] High [facility] pH (Bld) 7.425 [pH] 7.350 - 7.450 [facility] Laboratory - Coagulationon 1 04-30-2022 aPTT Coag (PPP) [Time] 27.4 s 20.0 - 30.5 s [facility] Fibrinogen Coag (PPP) [Mass/Vol] 406 mg/dL High 200 - 400 mg/dL [facility] INR Coag (PPP) [Relative time] 1.3 {INR} High 0.9 - 1.1 [facility] Comment on above: Recommended Anticoag ulant Therapy: SEE BELOW ----- INR of 2.0 - 3.0 : - Prophylaxis of Venous Thrombosis (high-risk surgery) - Treatment of Venous Thrombosis - Treatment of Pulmonary Embolism (Includes tissue heart valves, Acute Myocardial Infarction to prevent systemic embolism, Valvular Heart Disease, and Atrial Fibrillation) ----- INR of 2.5 - 3.5 : - Mechanical Prosthetic Valves (high risk) - If oral anticoagulant therapy is used to prevent Myocardial Infarction PT Coag (Bld) [Time] 13.2 s High 9.0 - 1 2.0 s [facility] Laboratory - Hematology and Cell countsOrdered By: Bill Harry on 02-28-2023 Hemoglobin (Bld) [Mass/Vol] 9.0 g/dL Screen Only [facility] MAGNESIUMon 02-28-2023 Magnesium [Mass/Vol] 4.1 mg/dL High 1.6-2.3 [facility] Comment on above: Performed By: #### L [id number], [id number], [id number] ####Lifter/Driver: KATERINE BOLTON ([id number])[facility] ([facility])[address] [place] [address] No Panel Informationon 02-28 Interpretation and review of laboratory results Abnormal [facility] Performed by: [facility], [address] [place] [address] CLIA ID: [id number] [facility] Interpretation and review of laboratory results Abnormal [facility] Performed by: [facility] [place] [facility], [address] [place] [address], [place] [address] CLIA ID: [id number] [facility] Interpretation and review of laboratory results Abnormal [facility] Performed by: [facility] [place] [facility], [address] [place] [address], [place] [address] CLIA ID: [id number] [facility] Interpretation and review of laboratory results Abnormal [facility] Performed by: [facility] [place] [facility], [address] [place] [address], [place] [address] CLIA ID: [id number] [facility] Interpretation and review of laboratory results Abnormal [facility] Performed by: [facility] [place] [facility], [address] [place] [address], [place] [address] CLIA ID: [id number] [facility] Interpretation and review of laboratory results Abnormal [facility] Performed by: [facility] [place] [facility], [address] [place] [address], [place] [address] CLIA ID: [id number] [facility] Interpretation and review of laboratory results Abnormal [facility] Performed by: [facility] [place] [facility], [address] [place] [address], [place] [address] CLIA ID: [id number] [facility] Interpretation and review of laboratory results Abnormal [facility] Performed by: [facility] [place] [facility], [address] [place] [address], [place] [address] CLIA ID: [id number] [facility] Interpretation and review of laboratory results Abnormal [facility] Performed by: [facility] [place] [facility], [address] [place] [address], [place] [address] CLIA ID: [id number] [facility] Interpretation and review of laboratory results Abnormal [facility] Performed by: [facility] [place] [facility], [address] [place] [address], [place] [address] CLIA ID: [id number] [facility] Interpretation and review of laboratory results Abnormal [facility] Performed by: [facility] [place] [facility], [address] [place] [address], [place] [address] CLIA ID: [id number] [facility] Interpretation and review of laboratory results Abnormal [facility] Performed by: [facility] [place] [facility], [address] [place] [address], [place] [address] CLIA ID: [id number] [facility] Interpretation and review of laboratory results Abnormal [facility] Performed by: [facility], [address] [place] [address] CLIA ID: [id number] [facility] Blood Expiration Date [id number] [facility] Crossmatch interpretation COMP [facility] Dispense Status Transfused [facility] Dispense Status Released from Crossmatch [facility] Product Blood Type 5100 [facility] PRODUCT CODE [id number] [facility] ABO O [facility] Number [id number] [facility] Number [id number] [facility] RH Positive [facility] Volume 300 mL [facility] Interpretation and review of laboratory results Abnormal [facility] Performed by: [facility], [address] [place] [address] CLIA ID: [id number] [facility] Interpretation and review of laboratory results Abnormal [facility] Interpretation and review of laboratory results Abnormal [facility] Interpretation and review of laboratory results Abnormal [facility] Performed by: [facility], [address] [place] [address] CLIA ID: [id number] [facility] No Panel InformationOrdered By: Bill Harry on 02-28-2023 Interpretation and review of laboratory results Abnormal [facility] Source Of Oxygen Vent Alisha Massey alth Comment on above: 100% [facility] Op Noteon 02-28-2023 Op Note Cardiothoracic Surge ry Operative Report Pre-operative Diagnosis: Aortic stenosis, coronary artery disease Post-operative Diagnosis: Same Procedure: Surgical aortic valve replacement-23 mm Bautista magna bioprosthetic heart valve; coronary revascularization x2: Left internal mammary artery grafted to left anterior descending coronary artery, reverse saphenous vein graft graft to the posterolateral left ventricular branch of the right coronary artery; endoscopic vein harvesting left lower extremity knee to distal thigh; intraoperative transesophageal echocardiography Surgeon: Eduar Rodríguez MD Director Learning(s): [x] [place] [x] Jie Root [] Mabel Johnson [] Mabel Jackson [] Other Anesthesia: General Estimated blood loss: Difficult to estimate due to the nature of the surgery. Cell Saver and pump suction utilized. Total IV fluids: See anesthesia and perfusion record Blood Transfusion?: No Drains: Mediastinal and left pleural chest tube Specimens: None Complications: None Condition: Stable upon transfer to the intensive care unit Prophylactic Antibiotics: Yes 1st or 2nd generation cephalosporin given (or other antibiotic in the event of an allergy) within 1 hour of surgical incision (two hours if receiving Vancomycin or flouroquinolone) If NO, indication reason why: [] Patient on continuous antibiotics for documented preoperative infection [] Other: The STS Risk Calculator score was calculated and discussed with the patient/family prior to surgery. Yes: [x] No: [] Not a risk calculated procedure [] Emergent or Emergent/Salvage Used of DON: Yes No due to: [] Subclavian stenosis [] Emergent or Emergent/Salvage [] Prior cardiothoracic surgery [] Prior mediastinal radiation [] No bypassable LAD disease, LAD not needed/bypassed: (This can include clean LAD, diffusely diseased LAD or other condition resulting in the LAD not being bypassed). Beta-paloma within 24 hours prior to surgical incision: [x] Yes - please see documentation in EMR [] No [] Allergy [] Heart block [] COPD [] Hypotension BP: [] Bradycardia HR: INDICATIONS FOR SURGERY: This 78-year-old previously healthy and very active gentleman has been followed for aortic stenosis. He has developed severe, symptomatic aortic stenosis with concomitant coronary artery disease. He has a significant lesion within the proximal LAD and a significant lesion within the proximal right coronary artery. The distal right coronary artery is a small target but may be amenable to revascularization. The LAD is a good target. We discussed a bioprosthesis with this patient because of his advanced age and the need to avoid long-term anticoagulation. I believe a bioprosthesis would be his best option for. Lowest risk and durable replacement with concomitant coronary bypass surgery. The risk of significant complication or morbidity/mortality is less than 2%. After being provided informed consent, the patient agrees to proceed. DESCRIPTION OF PROCEDURE: Patient was taken to the operative suite and placed under general endotracheal anesthesia. Monitoring lines were inserted by the department of anesthesia. Intraoperative transesophageal echocardiography was performed. The findings will follow under separate dictation. Severe aortic stenosis was noted. No other concomitant valvular heart disease was discovered that required surgical intervention. The patient was positioned prepped and draped. After appropriate timeout a lower extremity incision was made and the greater saphenous vein was procured using an endoscopic vein harvesting technique. The left lower extremity was utilized from the knee to the distal thigh. The vein was prepared in the usual fashion and the incisions were closed in the usual manner. Simultaneously, a median sternotomy was employed and the left internal mammary artery was harvested in a skeletonized and pedicled fashion. The internal mammary artery had adequate caliber and flow. Heparin was administered to obtain an ACT of greater than 400 seconds. The pericardium was open marsupialized and pursestrings were placed in preparation for central cannulation. Central cannulation progressed with an aortic cannula in the distal ascending aorta, a cardioplegia needle in the proximal ascending aorta and a multistage venous cannula via the right atrium into the inferior vena cava. A retrograde coronary sinus catheter was placed via the right atrium as well. Once cardiopulmonary bypass had been established, a right superior pulmonary venous vent was also placed into the left ventricle. Cardiopulmonary bypass was established. The aorta was crossclamped and cardioplegia was administered. 1 L of cardioplegia was initially administered and then intermittent aliquots of cold blood were given between each distal anastomosis. All distal anastomoses were performed first in a similar fashion as follows: The target co (more content not included)... Normal [facility] PHOSPHORUSon 02-28-2023 Phosphate [Mass/Vol] 4.0 mg/dL Normal 2.5-4.5 [facility] Comment on above: Performed By: #### L [id number], [id number], [id number] ####Lifter/Driver: KATERINE BOLTON ([id number])[address] PROTIME AND APTTon aPTT Coag (Bld) [Time] 27.4 s Normal 20.0-30.5 [facility] Comment on above: Performed By: #### L [id number], [id number] ####Lifter/Driver: KATERINE BOLTON ([id number])[address] INR Coag (PPP) [Relative time] 1.3 {INR} High 0.9-1.1 [facility] Comment on above: Result Comment: Duong mmended Anticoagulant Therapy: SEE BELOW ----- INR of 2.0 - 3.0 : - Prophylaxis of Venous Thrombosis (high-risk surgery) - Treatment of Venous Thrombosis - Treatment of Pulmonary Embolism (Includes tissue heart valves, Acute Myocardial Infarction to prevent systemic embolism, Valvular Heart Disease, and Atrial Fibrillation) ----- INR of 2.5 - 3.5 : - Mechanical Prosthetic Valves (high risk) - If oral anticoagulant therapy is used to prevent Myocardial Infarction Performed By: #### L [id number], [id number] ####Lifter/Driver: KATERINE BOLTON ([phone])[facility] ([facility])[address] [place] [address] PT Coag (PPP) [Time] 13.2 s High 9.0-12.0 [facility] Comment on above: Performed By: #### L [id number], [id number] ####Lifter/Driver: KATERINE BOLTON ([id number])[facility] ([employer])[address] [place] [address] Phosphate [Moles/Vol]on Interpretation and review of laboratory results Normal [facility] Phosphate [Mass/Vol] 4.0 mg/dL 2.5 - 4 .5 mg/dL [facility] Progress Noteon 02-28-2023 Progress Note Went to access pt fo r extubation. I couldn't get him to complete a NIF. I feel a bit too groggy still. Slow to respond. Spoke to RN about it. She will call me when he is ready Normal [facility] Progress Note Placed pt on TC at 1 425 1430 RR 9.2 Vt 404 RSBI 22 1445 RR 10 Vt 654 RSBI 15 1450 RR 10 Vt 525 RSBI 19 Pt tolerated 30 mins on TC-RN aware Normal [facility] US Heart TransesophagealOrde red By: Chayito Isaacs on 02-28-2023 AV Area by Planimetry 1.0 cm2 [facility] Work Phone: AV AT 93.43 ms [facility] [employer] Work Phone: AV Mean Gradient 8 mmHg [facility] Work Phone: AV Mean Velocity 1.3 m/s [facility] Bryson alth Work Phone: AV Peak Gradient 17 mmHg [facility] Work Phone: AV Peak Velocity 2.1 m/s [facility] Work Phone: AV VTI 41.1 cm [facility] Work Phone: KAPIL/BSA 0.57 cm2/m2 [facility] Work Phone: LVOT Area 3.1 cm2 [facility] Work Phone: LVOT Diameter 2.0 cm [facility] Work Phone: MV Nyquist Velocity 38 cm/s [facility] Work Phone: [facility] Work Phone: US Heart Transesophagealon 1 04-30-2022 Left Ventricle: Left ventricle size is normal. Mildly increased wall thickness. Normal left ventricular systolic function. LVEF pre and post AVR is normal , visually about 60%. Normal wall motion. Right Ventricle: Right ventricle size is normal. Normal systolic function. Aortic Valve: Pre-valve replacement: Severe stenosis of the aortic valve. By planimetery valve area was 1 cm2.Mild regurgitation. s/p Bioprosthetic AVR . well seated, functioning normally (Mean gradient 8 mmHg, V max 2.1 m/s). No perivalvular or valvular regurgitation Mitral Valve: Mildly thickened leaflets. Mild to moderate (1-2+) regurgitation. Left Ventricle Left ventricle size is normal. Mildly increased wall thickness. Normal left ventricular systolic function. The EF by visual approximation is 60%. Normal wall motion. Right Ventricle Right ventricle size is normal. Normal systolic function. Left Atrium Left atrium size is normal. Normal sized appendage. No left atrial appendage thrombus noted. Right Atrium Right atrium size is normal. Mitral Valve Mildly thickened leaflets. Mild to moderate (1-2+) regurgitation. No stenosis noted. Tricuspid Valve Valve structure is normal. Mild (1+) regurgitation. Aortic Valve Trileaflet. Severely thickened cusps. Severely calcified cusps. Pre-valve replacement: Severe stenosis of the aortic valve. by planimetery valve area was 1 cm2.Mild regurgitation. s/p Bioprosthetic AVR . well seated, functionng normally (Mean gradient 8 mmHg, V max 2.1 m/s). No perivalvular or valvular regurgitation Pulmonic Valve Valve structure is normal. Trace regurgitation. Ascending Aorta Normal sized sinuses of Valsalva and ascending aorta. There is mild atherosclerosis present in the aortic arch. Pericardium No pericardial effusion. Septum No interatrial shunt visualized on color Doppler. Study Details Image quality: good. Images have been saved and databased. Heart rate: 63 bpm. Blood pressure: 85/45 mmHg. The procedure, risks and alternatives were explained. Informed consent was obtained. LAURIE probe number: OR 6. LAURIE probe was inserted by the anesthesiologist with no difficulty. No topical anesthesic. No complications. LAURIE probe was removed. No contrast was given. See anesthesia notes for medications given. CV CPACS HEMO XR CHEST 1 VIEWon 02-28-2023 XR CHEST 1 VIEW Patient Name: VIDAL HIRSCH : 1945 Exam Date/Time: 02/28/2023 11:54 Procedure: XR CHEST 1 VIEW Ordering Provider: WALSH MATTHEW Reason For Exam: Post op open heart surgery CHEST - PORTABLE: CLINICAL INDICATION: Postop open heart surgery. TECHNIQUE: Portable AP COMPARISON: 02/19/2023. IMPRESSION: FINDINGS/IMPRESSION: Limitations: Slight patient rotation and multiple overlying leads/support devices Lines, tubes, and devices: Endotracheal tube has its tip about 4 cm above the herbert. Right IJ Hickory-Jose catheter with its tip in the proximal right pulmonary artery. NG tube with its tip in the proximal stomach. Mediastinal drain and left basilar chest tube in place. Cardiomediastinal silhouette: Postsurgical changes with median sternotomy wires and cardiac valve prosthesis. Lungs/Pleura: Slight coarsening of the interstitial lung markings in part likely reflecting chronic lung changes. There may be element of mild central pulmonary vascular congestion. Mild left basilar atelectasis. No sizable pleural effusions. No pneumothorax. Osseous structures: Degenerative spondylosis in the visualized spine. Soft tissues: No soft tissue abnormality is detected. Report Dictated on Electronically Signed By: Isaias Vasquez MD Electronically Signed Date/Time: 02/28/2023 1:23 PM EDT [facility] XR Chest Single viewon 02-28 FINDINGS/IMPRESSION: Limitations: Slight patient rotation and multiple overlying leads/support devices Lines, tubes, and devices: Endotracheal tube has its tip about 4 cm above the herbert. Right IJ Hickory-Jose catheter with its tip in the proximal right pulmonary artery. NG tube with its tip in the proximal stomach. Mediastinal drain and left basilar chest tube in place. Cardiomediastinal silhouette: Postsurgical changes with median sternotomy wires and cardiac valve prosthesis. Lungs/Pleura: Slight coarsening of the interstitial lung markings in part likely reflecting chronic lung changes. There may be element of mild central pulmonary vascular congestion. Mild left basilar atelectasis. No sizable pleural effusions. No pneumothorax. Osseous structures: Degenerative spondylosis in the visualized spine. Soft tissues: No soft tissue abnormality is detected. Report Dictated on Electronically Signed By: Isaias Vasquez MD Electronically Signed Date/Time: 02/28/2023 1:23 PM EDT [facility] Patient Name: VIDAL HIRSCH : 1945 Exam Date/Time: 02/28/2023 11:54 Procedure: XR CHEST 1 VIEW Ordering Provider: WALSH MATTHEW Reason For Exam: Post op open heart surgery CHEST - PORTABLE: CLINICAL INDICATION: Postop open heart surgery. TECHNIQUE: Portable AP COMPARISON: 02/19/2023. [facility] Patricia Vasquez MD - 02/28/2023 Patient Name: VIDAL KAY : 1945 Exam Date/Time: 02/28/2023 11:54 Procedure: XR CHEST 1 VIEW Ordering Provider: WALSH MATTHEW Reason For Exam: Post op open heart surgery CHEST - PORTABLE: CLINICAL INDICATION: Postop open heart surgery. TECHNIQUE: Portable AP COMPARISON: 02/19/2023. IMPRESSION: FINDINGS/IMPRESSION: Limitations: Slight patient rotation and multiple overlying leads/support devices Lines, tubes, and devices: Endotracheal tube has its tip about 4 cm above the herbert. Right IJ Hickory-Jose catheter with its tip in the proximal right pulmonary artery. NG tube with its tip in the proximal stomach. Mediastinal drain and left basilar chest tube in place. Cardiomediastinal silhouette: Postsurgical changes with median sternotomy wires and cardiac valve prosthesis. Lungs/Pleura: Slight coarsening of the interstitial lung markings in part likely reflecting chronic lung changes. There may be element of mild central pulmonary vascular congestion. Mild left basilar atelectasis. No sizable pleural effusions. No pneumothorax. Osseous structures: Degenerative spondylosis in the visualized spine. Soft tissues: No soft tissue abnormality is detected. Report Dictated on Electronically Signed By: Isaias Vasquez MD Electronically Signed Date/Time: 02/28/2023 1:23 PM EDT [facility] Radiology Study observation (narrative) [facility] XR Chest Single viewOrdered By: Patricia Vasquez on 02-28-2023 [facility] Work Phone: 36on 02-21-2023 36 Surg proc orders bia allyssa Meds E-scribed. Yary Alberts, [employer] [facility] REP 02/21/23 Normal [facility] Progress Noteon 02-21-2023 Progress Note Pre op teaching done with patient. Instructed to hold NSAIDS except Aspirin 7 days prior to surgery,and not to take any medications day of surgery. Pharmacy confirmed. All questions answered. Normal [facility] [facility] ECG 12-LEADon 02-20-2023 ECG 12-LEAD IMPRESSION: Sinus rhythm Atrial premature complex Electronically Signed On 02-20-2023 10:37:27 EDT by Tash Starr Normal [facility] APTTon 02-19-2023 aPTT Coag (Bld) [Time] 31.6 s High 20.0-30.5 [facility] Comment on above: Result Comment: ROD Duran COMMENTS: NOTE: The therapeutic time for Heparin anticoagulation, based on Xa activity inhibition, is an APTT of 46-80 seconds. Performed By: #### L [id number], [id number] ####Lifter/Driver: KATERINE BOLTON ([id number])[facility] ([address] BLOOD TYPE AND SCREEN GELon 02-19-2023 ABO GROUPING O Normal [facility] Comment on above: Performed By: #### L [id number] ####Lifter/Driver: KATERINE BOLTON ([phone])[facility] BLOOD BANK ([facility])[address] [place] [address] RH TYPE IN BLOOD Positive Normal [facility] Comment on above: Performed By: #### L [id number] ####Lifter/Driver: KATERINE BOLTON ([phone])[facility]LOOD [facility] ([facility])[address] [place] [address] CBC (HEMOGRAM)on 02-19-2023 Erythrocyte distribution width (RBC) [Ratio] 15.1 % High 11.5-14.5 [facility] Comment on above: Performed By: #### L [id number] ####Lifter/Driver: KATERINE BOLTON ([id number])[facility])[address] [place] [address] ERYTHROCYTE MEAN CORPUSCULAR HEMOGLOBIN CONCENTRATION (G/DL) BY AUTOMATED 32.1 % Normal 32.0-36.0 [facility] Comment on above: Performed By: #### L [id number] ####Lifter/Driver: KATERINE BOLTON ([phone])[facility])[address] [place] [address] Hematocrit (Bld) [Volume fraction] 31.2 % Low 40.0-52.0 [facility] Comment on above: Performed By: #### L [id number] ####Lifter/Driver: KATERINE BOLTON ([id number])[facility])[address] [place] [address] Hemoglobin (Bld) [Mass/Vol] 10.0 g/dL Low 13.0-18.0 [facility] Comment on above: Performed By: #### L [id number] ####Lifter/Driver: KATERINE BOLTON ([phone])[facility])[address] [place] [address] MCH (RBC) [Entitic mass] 25.0 pg Low 26.0-34.0 [facility] Comment on above: Performed By: #### L [id number] ####Lifter/Driver: KATERINE BOLTON ([phone])[facility] ([facility])[address] [place] [address] MCV (RBC) [Entitic vol] 77.9 fL Low 80.0-98.0 S [facility] Comment on above: Performed By: #### L [id number] ####Lifter/Driver: KATERINE BOLTON ([id number])[facility] ([facility])[address] [place] [address] Platelet mean volume (Bld) [Entitic vol] 7.0 fL Low 7.4-12.4 [facility] Comment on above: Performed By: #### L [id number] ####Lifter/Driver: KATERINE BOLTON ([id number])[facility] ([facility])[address] [place] [address] PLATELETS (10*3/UL) IN BLOOD AUTOMATED COUNT 421 10*3/uL Normal 140-440 [facility] Comment on above: Performed By: #### L [id number] ####Lifter/Driver: KATERINE BOLTON ([id number])[facility] ([facility])[address] [place] [address] RBC (Bld) [#/Vol] 4.01 10*6/uL Low 4.40-5.90 [facility] Comment on above: Performed By: #### L [id number] ####Lifter/Driver: KATERINE BOLTON ([id number])[facility] ([facility])[address] [place] [address] WBC (Bld) [#/Vol] 7.4 10*3/uL Normal 3.6-10.7 [facility] Comment on above: Performed By: #### L [id number] ####Lifter/Driver: KATREINE BOLTON ([phone])[facility])[address] [place] [address] COMPLETE URINALYSISon 2022 BACTERIA (#/HPF) IN URINE Negative Normal Negative [facility] Comment on above: Performed By: #### L [id number] ####Lifter/Driver: KATERINE BOLTON ([id number])[facility])[address] [place] [address] BILIRUBIN, TOTAL PRESENCE IN URINE Negative Normal Negative [facility] Comment on above: Performed By: #### L [id number] ####Lifter/Driver: KATERINE BOLTON ([id number])[facility])[address] [place] [address] Clarity (U) Clear Normal Clear [facility] Comment on above: Performed By: #### L [id number] ####Lifter/Driver: KATERINE BOLTON ([id number])[facility])[address] [place] [address] Color (U) Light Yellow Normal Lt. Yellow [facility] Comment on above: Performed By: #### L [id number] ####Lifter/Driver: KATERINE BOLTON ([phone])[facility])[address] [place] [address] GLUCOSE (MG/DL) IN URINE >1,000 Abnormal Normal (<70) [facility] Comment on above: Performed By: #### L [id number] ####Lifter/Driver: KATERINE BOLTON ([id number])[facility])[address] [place] [address] HEMOGLOBIN PRESENCE IN URINE Negative Normal Negative [facility] Comment on above: Performed By: #### L [id number] ####Lifter/Driver: KATERINE BOLTON ([phone])[facility])[address] [place] [address] HYALINE CASTS (#/LPF) IN URINE SEDIMENT BY MICROSCOPY 0-2 Abnormal Negative [facility] Comment on above: Performed By: #### L [id number] ####Lifter/Driver: KATERINE BOLTON ([phone])[facility])[address] [place] [address] Ketones Ql (U) Negative Normal [facility] Comment on above: Performed By: #### L [id number] ####Lifter/Driver: KATERINE BOLTON ([phone])[facility] ([facility])[address] [place] [address] LEUKOCYTE ESTERASE PRESENCE IN URINE BY TEST STRIP Negative Normal Negative [facility] Comment on above: Performed By: #### L [id number] ####Lifter/Driver: KATERINE BOLTON ([phone])[facility] ([facility])[address] [place] [address] NITRITE PRESENCE IN URINE Negative Normal Negative [facility] Comment on above: Performed By: #### L [id number] ####Lifter/Driver: KATERINE BOLTON ([id number])[facility] ([facility])[address] [place] [address] pH (U) 5.5 [pH] Normal 5.0-8.0 [facility] Comment on above: Performed By: #### L [id number] ####Lifter/Driver: KATERINE BOLTON ([id number])[facility] ([facility])[address] [place] [address] Protein (U) [Mass/Vol] 30 mg/dL Abnormal Negative [facility] Comment on above: Performed By: #### L [id number] ####Lifter/Driver: KATERINE BOLTON ([id number])[facility] ([facility])[address] [place] [address] RBC (#/HPF) IN URINE SEDIMENT 0-2 Normal 0-2 [facility] Comment on above: Performed By: #### L [id number] ####Lifter/Driver: KATERINE BOLTON ([id number])[facility] ([facility])[address] [place] [address] Specific gravity (U) [Rel density] 1.027 Normal 1.005-1.03 0 [facility] Comment on above: Performed By: #### L [id number] ####Lifter/Driver: KATERINE BOLTON ([phone])[facility] ([facility])[address] [place] [address] [place] SQUAMOUS EPITHELIAL CELLS (#/HPF) IN URINE SEDIMENT Negative Normal 3-5 [facility] Comment on above: Performed By: #### L [id number] ####Lifter/Driver: KATERINE BOLTON ([id number])[facility] ([facility])[address] [place] [address] UROBILINOGEN (MG/DL) IN URINE Normal Normal Normal (0-1) [facility] Comment on above: Performed By: #### L [id number] ####Lifter/Driver: KATERINE BOLTON ([id number])[facility] ([facility])[address] [place] [address] WBC (LEUKOCYTE) (#/HPF) IN URINE SEDIMENT 0-2 Normal 0-5 [facility] Comment on above: Performed By: #### L [id number] ####Lifter/Driver: KATERINE BOLTON ([phone])[facility])[address] [place] [address] COMPREHENSIVE METABOLIC PANE Tony 02-19-2023 Albumin [Mass/Vol] 4.1 g/dL Normal 3.5-5.0 [facility] Comment on above: Performed By: #### L AB17 ####Lifter/Driver: KATERINE BOLTON ([phone])[facility] ([facility])[address] [place] [address] ALP [Catalytic activity/Vol] 138 U/L High 38-126 [facility] Comment on above: Performed By: #### L AB17 ####Lifter/Driver: KATERINE BOLTON ([phone])[facility])[address] [place] [address] ALT [Catalytic activity/Vol] 23 U/L Normal 0-49 [facility] Comment on above: Performed By: #### L AB17 ####Lifter/Driver: KATERINE BOLTON ([phone])[facility])[address] [place] [address] Anion gap [Moles/Vol] 7 mmol/L Normal 3-13 [facility] Comment on above: Performed By: #### L AB17 ####Lifter/Driver: KATERINE BOLTON ([id number])[facility])[address] [place] [address] AST [Catalytic activity/Vol] 37 U/L Normal 15-46 [facility] Comment on above: Performed By: #### L AB17 ####Lifter/Driver: KATERINE BOLTON ([id number])[facility])[address] [place] [address] Bilirubin [Mass/Vol] 0.4 mg/dL Normal 0.2-1.3 [facility] Comment on above: Performed By: #### L AB17 ####Lifter/Driver: KATERINE BOLTON ([phone])[facility] ([facility])[address] [place] [address] Calcium [Mass/Vol] 10.1 mg/dL Normal 8.4-10.4 [facility] Comment on above: Performed By: #### L AB17 ####Lifter/Driver: KATERINE BOLTON ([phone])[facility] ([facility])[address] [place] [address] Chloride [Moles/Vol] 98 mmol/L Normal 98-107 [facility] Comment on above: Performed By: #### L AB17 ####Lifter/Driver: KATERINE BOLTON ([id number])[facility] ([facility])[address] [place] [address] CO2 [Moles/Vol] 29 mmol/L Normal 22-30 [facility] Comment on above: Performed By: #### L AB17 ####Lifter/Driver: KATERINE BOLTON ([id number])[facility])[address] [place] [address] Creatinine [Mass/Vol] 0.83 mg/dL Normal 0.66-1.25 [facility] Comment on above: Performed By: #### L AB17 ####Lifter/Driver: KATERINE BOLTON ([phone])[facility])[address] [place] [address] GLOMERULAR FILTRATION RATE ML/MIN/1.73 SQ M.PREDICTED 89.6 mL/min/1.73m*2 Normal >60.0 [facility] Comment on above: Result Comment: Calc ulation based on the Chronic Kidney Disease Epidemiology Collaboration (CKD-EPI) equation refit without adjustment for race Performed By: #### L AB17 ####Lifter/Driver: KATERINE BOLTON ([id number])[facility])[address] [place] [address] Glucose [Mass/Vol] 153 mg/dL High 70-100 [facility] Comment on above: Performed By: #### L AB17 ####Lifter/Driver: KATERINE BOLTON ([phone])[facility] ([facility])[address] [place] [address] Potassium [Moles/Vol] 4.8 mmol/L Normal 3.5-5.1 [facility] Comment on above: Performed By: #### L AB17 ####Lifter/Driver: KATERINE BOLTON ([phone])[facility])[address] [place] [address] Protein [Mass/Vol] 9.6 g/dL High 6.3-8.2 [facility] Comment on above: Performed By: #### L AB17 ####Lifter/Driver: KATERINE BOLTON ([id number])[facility] ([facility])[address] [place] [address] Sodium [Moles/Vol] 134 mmol/L Low 135-145 [facility] Comment on above: Performed By: #### L AB17 ####Lifter/Driver: KATERINE BOLTON ([phone])[facility])[address] [place] [address] [place] Urea nitrogen [Mass/Vol] 29 mg/dL High 9-20 [facility] Comment on above: Performed By: #### L AB17 ####Lifter/Driver: KATERINE BOLTON ([phone])[facility])[address] [place] [address] [place] HEMOGLOBIN A1Con 02-19-2023 Glucose [Mass/Vol] 163 mg/dL Normal [facility] Comment on above: Performed By: #### L AB90 ####Lifter/Driver: KATERINE BOLTON ([phone])[facility])[address] [place] [address] HbA1c (Bld) [Mass fraction] 7.3 % High <5.7 [facility] Comment on above: Result Comment: Norm al less than 5.7% Prediabetes 5.7% to 6.4% Diabetes 6.5% or higher --HgbA1C levels may not be accurate in patients who have renal disease, received recent blood transfusions, are anemic, or who have dyshemoglobinemia. Performed By: #### L AB90 ####Lifter/Driver: KATERINE BOLTON ([phone])[facility])[address] [place] [address] MRSA BY PCRon 02-19-2023 MRSA BY PCR STAPHYLOCOCCUS AUREU S Reference Not Detected Not Detected MECA GENE Reference Not Detected Not Detected ORDER COMMENTS: No Staphylococcus aureus detected. Negative nasal MRSA PCR has a high negative predictive value for MRSA pneumonia. Consider stopping Vancomycin if no other clinical indication. Contact Antimicrobial Stewardship for further recommendations. Staphylococcus aureus nasal screen by real-time PCR. This test was modified and its performance characteristics determined by [facility]. The [place]. Food and Drug Administration has not approved or cleared this test; however, FDA clearance or approval is not currently required for clinical use. The results are not intended to be used as the sole means for clinical diagnosis or patient management decisions. Normal [facility] Comment on above: Performed By: #### L [id number] ####Lifter/Driver: KATERINE BOLTON ([phone])[address] Office Visiton 02-19-2023 Follow-up visit [id number] Guero Kay 1945 M Date Provider Department Center 02/19/2023 [id number], ED[facility] None No family history on file Level of Service:09881 [place] OFFICE/OUTPATIENT NEW HIGH MDM 60-74 MINUTES Reason for Visit and Comments: New Patient [542] Normal [facility] PREPROCINSon 02-19-2023 PREPROCINS Medication List Accurate as of February 19, 2023 12:21 PM. Always use your most recent med list. ascorbic acid 1000 MG tablet Commonly known as: Vitamin C Medication Adjustments for Surgery: Other (Comment) Notes to patient: Do not take any meds morning of surgery aspirin 81 MG EC tablet Medication Adjustments for Surgery: Other (Comment) Notes to patient: Do not take any meds morning of surgery dapagliflozin 10 MG Commonly known as: Farxiga Medication Adjustments for Surgery: Stop 2 days before surgery Notes to patient: Last dose 02/25/23 ferrous sulfate 325 (65 Fe) MG tablet Medication Adjustments for Surgery: Other (Comment) Notes to patient: Do not take the morning of surgery glipiZIDE 5 MG tablet Commonly known as: Glucotrol Medication Adjustments for Surgery: Other (Comment) Notes to patient: Do not take any meds morning of surgery glucosamine-chondroitin 500-400 MG tablet Medication Adjustments for Surgery: Other (Comment) Notes to patient: Stop now Lantus 100 UNIT/ML injection Generic drug: insulin glargine Medication Adjustments for Surgery: Other (Comment) Notes to patient: Take 12 units night before surgery mesalamine 1.2 g EC tablet Commonly known as: Lialda Medication Adjustments for Surgery: Other (Comment) Notes to patient: Do not take any meds morning of surgery multivitamin with minerals tablet Medication Adjustments for Surgery: Other (Comment) Notes to patient: Do not take any meds morning of surgery ramipril 5 MG capsule Commonly known as: Altace Medication Adjustments for Surgery: Other (Comment) Notes to patient: Do not take any meds morning of surgery Additional Instructions: NO Motrin, ibuprofen or Advil for 24 hours prior to surgery or longer if instructed by your surgeon. NO Aleve or Naprosyn for 5 days prior to surgery or longer if instructed by your surgeon. Follow any instructions given to you by Dr. Rodríguez. FOLLOW INSTRUCTIONS FOR NASAL OINTMENT AND MOUTHWAASH. Shower with mPura shower kit provided to you before coming to the hospital. Use twice, night before and morning of surgery. No makeup, lotion, powder, deodorant or body sprays. No hair products. Remove all jewelry and leave it at home. Wear loose comfortable clothing to go home in. [place] your teeth morning of surgery. Do not wear contacts day of surgery. If you have specific questions, please call your surgeon. You will receive a call the day before your surgery to verify your arrival time and date. You will be asked to arrive at least two hours prior to your scheduled surgery time. Please bring your [facility] folder and medication list with you day of surgery. We encourage you to write down any questions you may have for the surgeon, anesthesiologist, or other members of the surgical team and bring it with you the day of surgery. Please bring photo ID and insurance information. PARTY DIRECTOR AND PARKING IN THE MAIN DECK ARE FREE DAY OF SURGERY. PARKING IN THE DECK-- AFTER PARKING TAKE THE ELEVATOR TO LEVEL ONE AND TAKE THE BRIDGE TO THE HOSPITAL. GO TO THE RIGHT AND GO AROUND THE CORNER TO THE SAME DAY SURGERY DESK AND CHECK IN THERE. IF GOING IN THE MAIN ENTRANCE-- TURN LEFT AND GO DOWN THE POTTER TO THE H ELEVATORS AND TAKE THEM TO ONE, LEFT OFF THE ELEVATOR AND GO AROUND TO THE SAME DAY DESK AND CHECK IN. Normal [facility] PREPROCINS Medication List Accurate as of February 19, 2023 11:28 AM. Always use your most recent med list. ascorbic acid 1000 MG tablet Commonly known as: Vitamin C Medication Adjustments for Surgery: Other (Comment) Notes to patient: Do not take any meds morning of surgery aspirin 81 MG EC tablet Medication Adjustments for Surgery: Other (Comment) Notes to patient: Do not take any meds morning of surgery dapagliflozin 10 MG Commonly known as: Farxiga Medication Adjustments for Surgery: Stop 2 days before surgery Notes to patient: Last dose 02/25/23 ferrous sulfate 325 (65 Fe) MG tablet Medication Adjustments for Surgery: Other (Comment) Notes to patient: Do not take any meds morning of surgery glipiZIDE 5 MG tablet Commonly known as: Glucotrol Medication Adjustments for Surgery: Other (Comment) Notes to patient: Do not take any meds morning of surgery glucosamine-chondroitin 500-400 MG tablet Notes to patient: Do not take any meds morning of surgery Lantus 100 UNIT/ML injection Generic drug: insulin glargine Medication Adjustments for Surgery: Other (Comment) Notes to patient: Take 12 units night before surgery mesalamine 1.2 g EC tablet Commonly known as: Lialda Medication Adjustments for Surgery: Other (Comment) Notes to patient: Do not take any meds morning of surgery multivitamin with minerals tablet Medication Adjustments for Surgery: Other (Comment) Notes to patient: Do not take any meds morning of surgery ramipril 5 MG capsule Commonly known as: Altace Medication Adjustments for Surgery: Other (Comment) Notes to patient: Do not take any meds morning of surgery Additional Instructions: NO Motrin, ibuprofen or Advil for 24 hours prior to surgery or longer if instructed by your surgeon. NO Aleve or Naprosyn for 5 days prior to surgery or longer if instructed by your surgeon. Follow any instructions given to you by Dr. Rodríguez. FOLLOW INSTRUCTIONS FOR NASAL OINTMENT AND MOUTHWAASH. Shower with mPura shower kit provided to you before coming to the hospital. Use twice, night before and morning of surgery. No makeup, lotion, powder, deodorant or body sprays. No hair products. Remove all jewelry and leave it at home. Wear loose comfortable clothing to go home in. [place] your teeth morning of surgery. Do not wear contacts day of surgery. If you have specific questions, please call your surgeon. You will receive a call the day before your surgery to verify your arrival time and date. You will be asked to arrive at least two hours prior to your scheduled surgery time. [facility] and medication list with you day of surgery. We encourage you to write down any questions you may have for the surgeon, anesthesiologist, or other members of the surgical team and bring it with you the day of surgery. Please bring photo ID and insurance information. PARTY DIRECTOR AND PARKING IN THE MAIN DECK ARE FREE DAY OF SURGERY. PARKING IN THE DECK-- AFTER PARKING TAKE THE ELEVATOR TO LEVEL ONE AND TAKE THE BRIDGE TO THE HOSPITAL. GO TO THE RIGHT AND GO AROUND THE CORNER TO THE SAME DAY SURGERY DESK AND CHECK IN THERE. IF GOING IN THE MAIN ENTRANCE-- TURN LEFT AND GO DOWN THE POTTER TO THE H ELEVATORS AND TAKE THEM TO ONE, LEFT OFF THE ELEVATOR AND GO AROUND TO THE SAME DAY DESK AND CHECK IN. Normal [facility] PROTHROMBIN TIMEon 3 INR Coag (PPP) [Relative time] 1.0 {INR} Normal 0.9-1.1 [facility] Comment on above: Result Comment: Duong mmended Anticoagulant Therapy: SEE BELOW ----- INR of 2.0 - 3.0 : - Prophylaxis of Venous Thrombosis (high-risk surgery) - Treatment of Venous Thrombosis - Treatment of Pulmonary Embolism (Includes tissue heart valves, Acute Myocardial Infarction to prevent systemic embolism, Valvular Heart Disease, and Atrial Fibrillation) ----- INR of 2.5 - 3.5 : - Mechanical Prosthetic Valves (high risk) - If oral anticoagulant therapy is used to prevent Myocardial Infarction Performed By: #### L [id number], [id number] ####Lifter/Driver: KATERINE BOLTON ([phone])[facility] ([facility])[address] [place] [address] PT Coag (PPP) [Time] 10.4 s Normal 9.0-12.0 [facility] Comment on above: Performed By: #### L [id number], [id number] ####Lifter/Driver: KATERINE BOLTON ([id number])[facility] ([facility])[address] [place] [address] Progress Noteon 02-19-2023 Progress Note [facility] [address] [facility] [address] Dept: [phone] Dept Loc: [phone] Visit type: New Reason for Visit: Aortic stenosis, coronary artery disease-evaluate for surgery. Assessment and plan This 78-year-old previously healthy and very active gentleman has been followed for aortic stenosis. He has developed severe, symptomatic aortic stenosis with concomitant coronary artery disease. He has a significant lesion within the proximal LAD and a significant lesion within the proximal right coronary artery. The distal right coronary artery is a small target but may be amenable to revascularization. The LAD is a good target. We discussed a bioprosthesis with this patient because of his advanced age and the need to avoid long-term anticoagulation. I believe a bioprosthesis would be his best option for. Lowest risk and durable replacement with concomitant coronary bypass surgery. The risk of significant complication or morbidity/mortality is less than 2%. After being provided informed consent, the patient agrees to proceed. History of Present Illness Vidal Kay is a 78 y.o. male referred by Dr. Baig for severe coronary artery bypass surgery and a aortic valve replacement. Per notes, patient has been experiencing some SOB. Patient had an echo for known aortic stenosis on 01/08/23 that showed severe aortic stenosis, and mild (1+) mitral valve insufficiency and mild (1+) tricuspid valve insufficiency. Dr. Baig did a heart cath on 02/13/23 that demonstrated severe disease involving LAD, right coronary artery. Patient is a former smoker. Patient is here today for an evaluation. Past Medical History Past Medical History: Diagnosis Date Coronary artery disease Diabetes mellitus (HCC) Past Surgical History Past Surgical History: Procedure Laterality Date CARPAL TUNNEL RELEASE Family History No family history on file. Social History Allergies Not on File Medications Current Outpatient Medications: ascorbic acid (Vitamin C) 1000 MG tablet, Take 1,000 mg by mouth daily., Disp: , Rfl: dapagliflozin (Farxiga) 10 MG, Take 10 mg by mouth daily., Disp: , Rfl: glipiZIDE (Glucotrol) 5 MG tablet, Take 5 mg by mouth in the morning and 5 mg in the evening. Take before meals., Disp: , Rfl: glucosamine-chondroitin 500-400 MG tablet, Take 1 tablet by mouth 3 times daily., Disp: , Rfl: mesalamine (Lialda) 1.2 g EC tablet, Take by mouth daily (with breakfast). Do not crush, chew, or split., Disp: , Rfl: Multiple Vitamins-Minerals (multivitamin with minerals) tablet, Take 1 tablet by mouth daily., Disp: , Rfl: ramipril (Altace) 5 MG capsule, Take 5 mg by mouth daily., Disp: , Rfl: Review of Systems Review of Systems Constitutional: Positive for fatigue. Respiratory: Positive for shortness of breath (with activity). All other systems reviewed and are negative. Physical Exam Vitals: There were no vitals taken for this visit. Constitutional: General: Not in acute distress. Appearance: Normal appearance. Not toxic-appearing. Ear, nose, mouth: Bilateral external ear and nose normal. Nose: Nose normal. Mouth: Appearance normal, no bleeding, moist mucus membranes Eyes: General: No scleral icterus. No discharge from bilateral eyes Extraocular Movements: Extraocular movements intact. Pupils equal and reactive bilaterally Cardiovascular: Heart: Regular rhythm. JEAN PIERRE c/w yes yes severe to I be happy to Edema: no edema in bilateral lower extremities Pulmonary: Effort: Pulmonary effort is normal. No respiratory distress. Breath sounds: Normal breath sounds. No wheezing. Chest wall: No tenderness. Abdominal: Appearance: Not distended Palpations: There is no abdominal tenderness, no guarding. Musculoskeletal: Bilateral upper and lower extremities: Normal range of motion, no deformity Head: Normocephalic and atraumatic. Neck: Normal range of motion and neck supple. No muscular tenderness. Skin: General: Skin is warm and dry. Coloration: Skin is not jaundiced. Neurological: General: No focal deficit present. Cranial Nerves: No obvious cranial nerve deficit. Psychiatric: Mood and Affect: Mood normal. Thought Content: Thought content normal. Patient has good judgement and insight Mental Status: Alert and oriented to place, person, and time. Labs No results found for: WBC, HGB, PLT, NA, K, CREATININE Imaging Heart cath 02/13/23 ECHO complete 01/08/23 Echo Complete 06/22/22 Patient Care Team: PCP: Dr. Felix Bill Cardiology: Dr. Chase Baig MD Disclaimer INFORMED CONSENT:The nature and purpose of the proposed treatment or procedure have been discussed. The risks and benefits of the proposed treatment or procedures have been reviewed. Alternatives have been reviewed in addition to the risks and benef (more content not included)... Normal [facility] XR CHEST 2 VIEWSon 3 XR CHEST 2 VIEWS Patient Name: VIDAL HIRSCH : 1945 Exam Date/Time: 02/19/2023 12:15 Procedure: XR CHEST 2 VIEWS Ordering Provider: ROGERS BETH Reason For Exam: pre-op testing CHEST, PA AND LATERAL: INDICATION: Preop COMPARISON: No previous studies are available for comparison. PA and lateral views of the chest were obtained. The heart is normal in size. The mediastinal silhouette is normal. Chronic interstitial changes are present. There are no effusions or infiltrates. There is no pleural thickening. Arthritic changes of the spine and shoulders are present. IMPRESSION: Negative chest. Report Dictated on Electronically Signed By: Emiliano Domínguez DO Electronically Signed Date/Time: 02/19/2023 2:29 PM EDT Normal [facility] XR Chest 2 Viewson 3 Negative chest. Report Dictated on Electronically Signed By: Emiliano Domínguez DO Electronically Signed Date/Time: 02/19/2023 2:29 PM EDT [facility] Patient Name: VIDAL [facility]IRSCH : 1945 [id number] Exam Date/Time: 02/19/2023 12:15 Procedure: XR CHEST 2 VIEWS Ordering Provider: ROGERS BETH Reason For Exam: pre-op testing CHEST, PA & LATERAL: INDICATION: Preop COMPARISON: No previous studies are available for comparison. PA and lateral views of the chest were obtained. The heart is normal in size. The mediastinal silhouette is normal. Chronic interstitial changes are present. There are no effusions or infiltrates. There is no pleural thickening. Arthritic changes of the spine and shoulders are present. [facility] Emiliano Domínguez DO - 02/19/2023 Patient Name: VIDAL KAY : 1945 Exam Date/Time: 02/19/2023 12:15 Procedure: XR CHEST 2 VIEWS Ordering Provider: ROGERS BETH Reason For Exam: pre-op testing CHEST, PA & LATERAL: INDICATION: Preop COMPARISON: No previous studies are available for comparison. PA and lateral views of the chest were obtained. The heart is normal in size. The mediastinal silhouette is normal. Chronic interstitial changes are present. There are no effusions or infiltrates. There is no pleural thickening. Arthritic changes of the spine and shoulders are present. IMPRESSION: Negative chest. Report Dictated on Electronically Signed By: Emiliano Domínguez DO Electronically Signed Date/Time: 02/19/2023 2:29 PM EDT [facility] Radiology Study observation (narrative) [facility] XR Chest 2 ViewsOrdered By: Emiliano Domínguez on 02-19-2023 [employer] Work Phone: CBC W Auto Differential pane l (Bld)on 02-06-2023 Basophils (Bld) [#/Vol] 0.04 10*3/uL <0.11 k/uL [facility] Basophils/100 WBC (Bld) 0.5 % [facility] Differential cell count method Nom (Bld) Auto [facility] Eosinophils (Bld) [#/Vol] 0.10 10*3/uL <0.46 k/uL [facility] Eosinophils/100 WBC (Bld) 1.3 % [facility] Erythrocyte distribution width (RBC) [Ratio] 15.1 % High 11.5 - 15.0 % [facility] Hematocrit (Bld) [Volume fraction] 30.4 % Low 39.0 - 51.0 % [facility] Hemoglobin (Bld) [Mass/Vol] 9.6 g/dL Low 13.0 - 17.0 g/dL [facility] Immature granulocytes (Bld) [#/Vol] <0.10 k/uL [facility] Immature granulocytes/100 WBC (Bld) 0.3 % [facility] Lymphocytes (Bld) [#/Vol] 1.03 10*3/uL 1.00 - 4.00 k/uL [facility] Lymphocytes/100 WBC (Bld) 13.8 % [facility] MCH (RBC) [Entitic mass] 24.8 pg Low 26.0 - 34.0 pg [facility] MCHC (RBC) [Mass/Vol] 31.6 g/dL 30.5 - 36.0 g/dL [facility] MCV (RBC) [Entitic vol] 78.6 fL Low 80.0 - 100.0 fL [facility] Monocytes (Bld) [#/Vol] 0.81 10*3/uL <0.87 k/uL [facility] Monocytes/100 WBC (Bld) 10.8 % [facility] Neutrophils (Bld) [#/Vol] 5.49 10*3/uL 1.45 - 7.50 k/uL [facility] Neutrophils/100 WBC (Bld) 73.3 % [facility] Nucleated RBC (Bld) [#/Vol] <0.01 k/uL [facility] Nucleated RBC/100 WBC (Bld) [Ratio] 0.0 /100 WBC [facility] Platelet mean volume (Bld) [Entitic vol] 8.9 fL Low 9.0 - 12.7 fL [facility] Platelets (Bld) [#/Vol] 351 10*3/uL 150 - 400 k/uL [facility] RBC (Bld) [#/Vol] 3.87 10*6/uL Low 4.20 - 6.00 m/uL [facility] WBC (Bld) [#/Vol] 7.49 10*3/uL 3.70 - 11.00 k/uL [facility] LD LACTATE DEHYDROon 023 LDH [Catalytic activity/Vol] 149 U/L 135 - 225 U/L [facility] No Panel Informationon 01-22 [facility] XR BONE SURVEY ROUTINEon [facility] US KIDNEY/BLADDERon 12-25-19 [facility] No Panel Informationon 10-09 [facility] XR CHEST 2V FRONTAL/LATon [facility] XR Chest PA and Lateralon IMPRESSION: No acute radiographic abnormality. Rod Pointer: CHERRY Transcribe Date/Time: Aug 27 2022 1:28P Dictated by : BERT FIELD MD This examination was interpreted and the report reviewed and electronically signed by: BERT FIELD MD on Aug 27 2022 1:29PM [facility] DIVISION OF RADIOLOGY * * *Final Report* * * DATE OF EXAM: Aug 27 2022 1:26PM WOX 5291 - XR CHEST 2V FRONTAL/LAT / PROCEDURE REASON: multiple diagnoses * * * * Physician Interpretation * * * * EXAMINATION: CHEST RADIOGRAPH (2 VIEW FRONTAL & LATERAL) CLINICAL HISTORY: Acute cough Shortness of breath MQ: XC2_6 EXAM DATE/TIME: 08/27/2022 1:26 PM COMPARISON: Chest x-ray dated May 02, 2019 RESULT: Lines, tubes, and devices: None. Lungs and pleura: Stable mildly coarse interstitial markings. No new consolidation. No lung mass. No pleural effusion. No pneumothorax. Cardiomediastinal silhouette: Normal cardiomediastinal silhouette. Bones and soft tissues: Degenerative changes. DIVISION OF RADIOLOGY Provider, Efren Angela - 08/27/2022 * * *Final Report* * * DATE OF EXAM: Aug 27 2022 1:26PM WOX 5291 - XR CHEST 2V FRONTAL/LAT / PROCEDURE REASON: multiple diagnoses * * * * Physician Interpretation * * * * EXAMINATION: CHEST RADIOGRAPH (2 VIEW FRONTAL & LATERAL) CLINICAL HISTORY: Acute cough Shortness of breath MQ: XC2_6 EXAM DATE/TIME: 08/27/2022 1:26 PM COMPARISON: Chest x-ray dated May 02, 2019 RESULT: Lines, tubes, and devices: None. Lungs and pleura: Stable mildly coarse interstitial markings. No new consolidation. No lung mass. No pleural effusion. No pneumothorax. Cardiomediastinal silhouette: Normal cardiomediastinal silhouette. Bones and soft tissues: Degenerative changes. IMPRESSION IMPRESSION: No acute radiographic abnormality. Rod Pointer: PSCB Transcribe Date/Time: Aug 27 2022 1:28P Dictated by : BERT FIELD MD This examination was interpreted and the report reviewed and electronically signed by: BERT FIELD MD on Aug 27 2022 1:29PM EST [facility] Radiology Study observation (narrative) Kacey kennedy [facility] XR Chest PA and LateralOrder ed By: [facility] Provider on 08-27-2022 [facility] Chart Maintenanceon 07-10-19 17 HbA1c 8.0 % Invalid Interpretation Code [facility] Work Phone: Office [facility]: [facility] Adolescent depression screening assessment Adolescent depression screening assessment Invalid Interpretation Code [facility] Work Phone: Adult depression screening assessment Adult depression screening assessment Invalid Interpretation Code [facility] Work Phone: Dietary management education, guidance, and counseling (procedure) yes Invalid Interpretation Code [facility] Work Phone: Documentation of current medications (procedure) Done Invalid Interpretation Code [facility] Work Phone: Tobacco smoking status NHIS Former Invalid Interpretation Code [facility] Work Phone: Tobacco use CPHS Former smoker Invalid Interpretation Code [facility] Work Phone: Office Visit: [facility]-29-2015 Colonoscopy (procedure) Colonoscopy (procedure) Invalid Interpretation Code [facility] Work Phone: Vital Signs Date Time Vital Sign Value Performing Clinician Facility 02-02-2025 07:45-0400 Body mass index (BMI) [Ratio] 25 kg/m2 Dr. Felix Bill MD Work Phone: [facility] 02-02-2025 07:45-0400 Body weight 70.[address] Felix Bill MD Work Phone: [facility] 02-02-2025 07:45-0400 Diastolic blood pressure 64 mm[Hg] Dr. Felix Bill MD Work Phone: [facility] 02-02-2025 07:45-0400 Heart rate 60 /min Dr. Fleix Bill MD Work Phone: [facility] 02-02-2025 07:45-0400 Respiratory rate 18 /min Dr. Felix Bill MD Work Phone: [facility] 02-02-2025 07:45-0400 SaO2% (BldA) [Mass fraction] 99 % Dr. Felix Bill MD Work Phone: 3(834)496-934772 [place] [address] 02-02-2025 07:45-0400 Systolic blood pressure 128 mm[Hg] Dr. Felix Bill MD Work Phone: [facility] 10-21-2024 09:41-0400 Body mass index (BMI) [Ratio] 24.31 kg/m2 Lise Cioce [employer] Work Phone: [facility] 10-21-2024 09:41-0400 Body temperature 98.49 [degF] Lise Cioce [employer] Work Phone: [facility] 10-21-2024 09:41-0400 Body weight 68.31 kg Lise Cioce [employer] Work Phone: [facility] 10-21-2024 09:41-0400 Diastolic blood pressure 60 mm[Hg] Lise Cioce [employer] Work Phone: [facility] 10-21-2024 09:41-0400 Heart rate 59 /min Lise Cioce [employer] Work Phone: [facility] 10-21-2024 09:41-0400 Respiratory rate 12 /min Lise Cioce [employer] Work Phone: [facility] 10-21-2024 09:41-0400 SaO2% (BldA) [Mass fraction] 96 % Lise Cioce [employer] [employer] Work Phone: [facility] 10-21-2024 09:41-0400 Systolic blood pressure 128 mm[Hg] Lise Cioce [employer] Work Phone: [facility] 08-26-2024 10:10-0400 Body height 167.[address] Felix Bill MD Work Phone: 2(700)959-727072 [place] [address] 08-26-2024 10:10-0400 Body mass index (BMI) [Ratio] 24.7 kg/m2 Dr. Felix Bill MD Work Phone: 6(519)293-708232 [address] 08-26-2024 10:10-0400 Body temperature 98.5 [degF] Dr. Felix Bill MD Work Phone: 3(593)528-320772 [place] [address] 08-26-2024 10:10-0400 Body weight 69.[address] Felix Bill MD Work Phone: 5(840)245-901872 [place] [address] 08-26-2024 10:10-0400 Diastolic blood pressure 62 mm[Hg] Dr. Felix Bill MD Work Phone: 8(028)332-534472 [place] [address] 08-26-2024 10:10-0400 Heart rate 71 /min Dr. Felix Bill MD Work Phone: [facility] 08-26-2024 10:10-0400 Respiratory rate 18 /min Dr. Felix Bill MD Work Phone: [facility] 08-26-2024 10:10-0400 SaO2% (BldA) [Mass fraction] 98 % Dr. Felix Bill MD Work Phone: 4(038)836-254172 [place] [address] 08-26-2024 10:10-0400 Systolic blood pressure 101 mm[Hg] Dr. Felix Bill MD Work Phone: [facility] 08-19-2024 09:22-0400 Body mass index (BMI) [Ratio] 24.59 kg/m2 Lynn LirianoCookie [employer] Work Phone: [facility] 08-19-2024 09:22-0400 Body weight 69.1 kg Lynn Vieyra [employer] Work Phone: [facility] 08-19-2024 09:22-0400 Diastolic blood pressure 76 mm[Hg] Lynn LirianoCookie [employer] Work Phone: [facility] 08-19-2024 09:22-0400 Heart rate 88 /min Lynn Vieyra [employer] Work Phone: [facility] 08-19-2024 09:22-0400 Respiratory rate 12 /min Lynn Vieyra [employer] Work Phone: [facility] 08-19-2024 09:22-0400 SaO2% (BldA) [Mass fraction] 99 % Lynn Vieyra [employer] Work Phone: [facility] 08-19-2024 09:22-0400 Systolic blood pressure 132 mm[Hg] Lynn LirianoCookie [employer] Work Phone: [facility] 08-12-2024 08:54-0400 Body mass index (BMI) [Ratio] 24.8 kg/m2 Lynn LirianoCookie [employer] Work Phone: [facility] 08-12-2024 08:54-0400 Body temperature 98.2 [degF] Lynn LirianoCookie [employer] Work Phone: [facility] 08-12-2024 08:54-0400 Body weight 69.7 kg Lynn Vieyra [employer] Work Phone: [facility] 08-12-2024 08:54-0400 Diastolic blood pressure 84 mm[Hg] Lynn LirianoCookie [employer] Work Phone: [facility] 08-12-2024 08:54-0400 Heart rate 90 /min Lynn Cookie [employer] Work Phone: [facility] 08-12-2024 08:54-0400 Respiratory rate 14 /min Lynn Cookie [employer] Work Phone: [facility] 08-12-2024 08:54-0400 SaO2% (BldA) [Mass fraction] 97 % Lynn Cookie [employer] [employer] Work Phone: [facility] 08-12-2024 08:54-0400 Systolic blood pressure 136 mm[Hg] Lynn Cookie [employer] Work Phone: 0(870)950-918659 [place] [address] 07-29-2024 07:30-0400 Body mass index (BMI) [Ratio] 25.8 kg/m2 Dr. Felix Bill MD Work Phone: 3(257)579-277072 [place] [address] 07-29-2024 07:30-0400 Body weight 72.[address] Felix Bill MD Work Phone: 5(900)004-919872 [place] [address] 07-29-2024 07:30-0400 Diastolic blood pressure 71 mm[Hg] Dr. Felix Bill MD Work Phone: 1(280)533-394172 [place] [address] 07-29-2024 07:30-0400 Heart rate 64 /min Dr. Felix Bill MD Work Phone: 5(131)835-677172 [place] [address] 07-29-2024 07:30-0400 Respiratory rate 18 /min Dr. Felix Bill MD Work Phone: 4(281)211-222072 [place] [address] 07-29-2024 07:30-0400 SaO2% (BldA) [Mass fraction] 99 % Dr. Felix Bill MD Work Phone: 8(105)363-049372 [place] [address] 07-29-2024 07:30-0400 Systolic blood pressure 151 mm[Hg] Dr. Felix Bill MD Work Phone: 6(914)285-624866 [place] [address] 06-03-2024 11:03-0500 Body mass index (BMI) [Ratio] 24.62 kg/m2 Felix Bill MD Work Phone: [facility] 06-03-2024 11:03-0500 Body temperature 98.29 [degF] Felix Bill MD Work Phone: [facility] 06-03-2024 11:03-0500 Body weight 69.2 kg Felix Bill MD Work Phone: [facility] 06-03-2024 11:03-0500 Diastolic blood pressure 50 mm[Hg] Felix Bill MD Work Phone: [facility] 06-03-2024 11:03-0500 Heart rate 60 /min Felix Bill MD Work Phone: [facility] 06-03-2024 11:03-0500 Systolic blood pressure 116 mm[Hg] Felix Bill MD Work Phone: [facility] 03-25-2024 14:55-0500 Body height 167.6 cm Lise Cioce [employer] Work Phone: [facility] 03-25-2024 14:55-0500 Body mass index (BMI) [Ratio] 25.63 kg/m2 Lise Cioce [employer] Work Phone: [facility] 03-25-2024 14:55-0500 Body weight 72.03 kg Lise Cioce [employer] Work Phone: [facility] 03-25-2024 14:55-0500 Diastolic blood pressure 52 mm[Hg] Lise Cioce [employer] Work Phone: [facility] 03-25-2024 14:55-0500 Heart rate 64 /min Lise Cioce [employer] [employer] Work Phone: [facility] 03-25-2024 14:55-0500 Respiratory rate 18 /min Lise Cioce [employer] Work Phone: [facility] 03-25-2024 14:55-0500 SaO2% (BldA) [Mass fraction] 96 % Lise Cioce [employer] Work Phone: [facility] 03-25-2024 14:55-0500 Systolic blood pressure 138 mm[Hg] Lise Cioce [employer] Work Phone: [facility] 01-07-2024 08:32-0400 Body mass index (BMI) [Ratio] 23.8 kg/m2 Dr. Felix Bill MD Work Phone: [facility] 01-07-2024 08:32-0400 Body temperature 97.3 [degF] Dr. Felix Bill MD Work Phone: [facility] 01-07-2024 08:32-0400 Diastolic blood pressure 46 mm[Hg] Dr. Felix Bill MD Work Phone: [facility] 01-07-2024 08:32-0400 Heart rate 69 /min Dr. Felix Bill MD Work Phone: [facility] 01-07-2024 08:32-0400 Respiratory rate 16 /min Dr. Felix Bill MD Work Phone: [facility] 01-07-2024 08:32-0400 SaO2% (BldA) [Mass fraction] 96 % Dr. Felix Bill MD Work Phone: [facility] 01-07-2024 08:32-0400 Systolic blood pressure 130 mm[Hg] Dr. eFlix Bill MD Work Phone: [facility] 12-02-2023 11:52-0400 Body height 167.6 cm Felix Bill MD Work Phone: [facility] 12-02-2023 11:52-0400 Body mass index (BMI) [Ratio] 22.6 kg/m2 Felix Bill MD Work Phone: [facility] 12-02-2023 11:52-0400 Body temperature 98.49 [degF] Felix Bill MD Work Phone: [facility] 12-02-2023 11:52-0400 Body weight 63.5 kg Felix Bill MD Work Phone: [facility] 12-02-2023 11:52-0400 Diastolic blood pressure 56 mm[Hg] Felix Bill MD Work Phone: [facility] 12-02-2023 11:52-0400 Heart rate 64 /min Felix Bill MD Work Phone: [facility] 12-02-2023 11:52-0400 Respiratory rate 12 /min Felix Bill MD Work Phone: [facility] 12-02-2023 11:52-0400 SaO2% (BldA) [Mass fraction] 97 % Felix Bill MD Work Phone: [facility] 12-02-2023 11:52-0400 Systolic blood pressure 114 mm[Hg] Felix Bill MD Work Phone: [facility] 07-31-2023 13:26-0400 Body temperature 96.7 [degF] Dr. Felix Bill Work Phone: [facility] 07-31-2023 13:26-0400 Diastolic blood pressure 48 mm[Hg] Dr. Felix Bill Work Phone: [facility] 07-31-2023 13:26-0400 Heart rate 67 /min Dr. Felix Bill Work Phone: [facility] 07-31-2023 13:26-0400 Respiratory rate 16 /min Dr. Felix Bill Work Phone: [facility] 07-31-2023 13:26-0400 SaO2% (BldA) [Mass fraction] 99 % Dr. Felix Bill Work Phone: [facility] 07-31-2023 13:26-0400 Systolic blood pressure 119 mm[Hg] Dr. Felix Bill Work Phone: 3(395)989-408072 [place] [address] 07-31-2023 10:14-0400 Body height 167.[address] Felix Bill Work Phone: 7(332)952-431772 [place] [address] 07-25-2023 15:04-0400 Body mass index (BMI) [Ratio] 23.3 kg/m2 Dr. Felix Bill Work Phone: 2(924)470-930366 [place] [address] 07-25-2023 15:04-0400 Body temperature 98.3 [degF] Dr. Felix Bill Work Phone: 6(865)820-715066 [place] [address] 07-25-2023 15:04-0400 Body weight 65.[address] Felix Bill Work Phone: 2(615)334-461166 [place] [address] 07-25-2023 15:04-0400 Diastolic blood pressure 65 mm[Hg] Dr. Felix Bill Work Phone: 9(658)881-132966 [place] [address] 07-25-2023 15:04-0400 Heart rate 76 /min Dr. Felix Bill Work Phone: 8(794)314-727466 [place] [address] 07-25-2023 15:04-0400 Respiratory rate 18 /min Dr. Felix Bill Work Phone: 4(344)994-538166 [place] [address] 07-25-2023 15:04-0400 SaO2% (BldA) [Mass fraction] 99 % Dr. Felix Bill Work Phone: 8(344)150-785366 [place] [address] 07-25-2023 15:04-0400 Systolic blood pressure 121 mm[Hg] Dr. Felix Bill Work Phone: 9(893)094-677966 [place] [address] 07-24-2023 10:13-0400 Body mass index (BMI) [Ratio] 21.7 kg/m2 Dr. Felix Bill Work Phone: 0(933)815-414266 [place] [address] 07-16-2023 10:59-0400 Body mass index (BMI) [Ratio] 23.3 kg/m2 Dr. Felix Bill Work Phone: 9(097)612-054966 [place] [address] 07-16-2023 10:59-0400 Body weight 65.[address] Felix Bill Work Phone: 9(218)665-733772 [place] [address] 07-16-2023 10:59-0400 Diastolic blood pressure 66 mm[Hg] Dr. Felix Bill Work Phone: 6(376)055-367966 [place] [address] 07-16-2023 10:59-0400 Heart rate 66 /min Dr. Felix Bill Work Phone: 5(216)307-140766 [place] [address] 07-16-2023 10:59-0400 Respiratory rate 18 /min Dr. Felix Bill Work Phone: 8(974)387-745566 [place] [address] 07-16-2023 10:59-0400 Systolic blood pressure 125 mm[Hg] Dr. Felix Bill Work Phone: 9(628)380-475266 [place] [address] 07-15-2023 15:26-0400 Body mass index (BMI) [Ratio] 23.4 kg/m2 Dr. Felix Bill Work Phone: 9(116)014-071566 [place] [address] 07-15-2023 15:26-0400 Body temperature 99.1 [degF] Dr. Felix Bill Work Phone: 4(266)480-986966 [place] [address] 07-15-2023 15:26-0400 Body weight 65.[address] Felix Bill Work Phone: 5(251)333-134166 [place] [address] 07-15-2023 15:26-0400 Diastolic blood pressure 63 mm[Hg] Dr. Felix Bill Work Phone: 3(296)093-201066 [place] [address] 07-15-2023 15:26-0400 Heart rate 68 /min Dr. Felix Bill Work Phone: 4(966)531-378166 [place] [address] 07-15-2023 15:26-0400 Respiratory rate 18 /min Dr. Felix Bill Work Phone: 2(590)924-082466 [place] [address] 07-15-2023 15:26-0400 SaO2% (BldA) [Mass fraction] 100 % Dr. Felix Bill Work Phone: 1(209)599-410066 [place] [address] 07-15-2023 15:26-0400 Systolic blood pressure 149 mm[Hg] Dr. Felix Bill Work Phone: [facility] 07-03-2023 09:47-0500 Body height 167.6 cm Lise Cioce [employer] Work Phone: [facility] 07-03-2023 09:47-0500 Body weight 66.32 kg Lise Cioce [employer] Work Phone: [facility] 07-03-2023 09:47-0500 Diastolic blood pressure 52 mm[Hg] Lise Cioce [employer] [employer] Work Phone: [facility] 07-03-2023 09:47-0500 Heart rate 66 /min Lise Cioce [employer] [employer] Work Phone: [facility] 07-03-2023 09:47-0500 Respiratory rate 18 /min Lise Cioce [employer] [employer] Work Phone: [facility] 07-03-2023 09:47-0500 SaO2% (BldA) [Mass fraction] 96 % Lise Cioce [employer] [employer] Work Phone: [facility] 07-03-2023 09:47-0500 Systolic blood pressure 108 mm[Hg] Lise Cioce [employer] Work Phone: [facility] 06-05-2023 09:20-0500 Body height 167.[address] Felix Bill Work Phone: [facility] 06-05-2023 09:20-0500 Body weight 65.[address] Felix Bill Work Phone: [facility] 05-20-2023 12:10-0500 Body temperature 97.8 [degF] Dr. Felix Bill Work Phone: [facility] 05-20-2023 12:10-0500 Diastolic blood pressure 64 mm[Hg] [facility]. [facility] Bill [facility] [place] 05-20-2023 12:10-0500 Heart rate 74 /min Dr. Felix Bill Work Phone: 8(047)940-304166 [place] [address] 05-20-2023 12:10-0500 Respiratory rate 16 /min Dr. Felix Bill Work Phone: 3(978)971-814166 [place] [address] 05-20-2023 12:10-0500 SaO2% (BldA) [Mass fraction] 100 % Dr. Felix Bill Work Phone: 9(323)096-860266 [place] [address] 05-20-2023 12:10-0500 Systolic blood pressure 119 mm[Hg] Dr. Felix Bill Work Phone: 2(595)611-596666 [place] [address] 05-20-2023 06:39-0500 Body height 167.[address] Felix Bill Work Phone: 6(886)232-742966 [place] [address] 05-20-2023 06:39-0500 Body mass index (BMI) [Ratio] 22.2 kg/m2 Dr. Felix Bill Work Phone: 9(039)121-121666 [place] [address] 05-20-2023 06:39-0500 Body weight 62.[address] Felix Bill Work Phone: 4(952)017-993366 [place] [address] 05-03-2023 08:15-0500 Body weight 65.[address] Felix Bill Work Phone: 3(918)475-284866 [place] [address] 04-16-2023 13:04-0500 Body height 167.[address] Felix Bill Work Phone: 1(627)715-370566 [place] [address] 04-16-2023 13:04-0500 Body mass index (BMI) [Ratio] 23.3 kg/m2 Dr. Felix iBll Work Phone: 4(609)377-029966 [place] [address] 04-16-2023 13:04-0500 Body weight 65.[address] Felix Bill Work Phone: 8(339)160-810966 [place] [address] 04-16-2023 13:04-0500 Diastolic blood pressure 69 mm[Hg] Dr. Felix Bill Work Phone: 2(132)231-690766 [place] [address] 04-16-2023 13:04-0500 Heart rate 69 /min Dr. Felix Bill Work Phone: 9(805)102-682566 [place] [address] 04-16-2023 13:04-0500 Respiratory rate 18 /min Dr. Felix Bill Work Phone: 6(241)543-217066 [place] [address] 04-16-2023 13:04-0500 SaO2% (BldA) [Mass fraction] 99 % Dr. Felix Bill Work Phone: 6(627)632-061566 [place] [address] 04-16-2023 13:04-0500 Systolic blood pressure 133 mm[Hg] Dr. Felix Bill Work Phone: 1(001)149-168066 [place] [address] 04-05-2023 10:46-0500 Diastolic blood pressure 50 mm[Hg] Dr. Felix Bill Work Phone: 4(710)727-172466 [place] [address] 04-05-2023 10:46-0500 Systolic blood pressure 142 mm[Hg] Dr. Felix Bill Work Phone: 4(357)647-328266 [place] [address] 04-05-2023 10:41-0500 Body mass index (BMI) [Ratio] 23.1 kg/m2 Dr. Felix Bill Work Phone: 1(256)117-244766 [place] [address] 04-05-2023 10:41-0500 Body weight 64.[address] Felix Bill Work Phone: 3(687)297-112172 [place] [address] 04-05-2023 10:41-0500 Heart rate 67 /min Dr. Felix Bill Work Phone: 4(462)967-331066 [place] [address] 04-05-2023 10:41-0500 SaO2% (BldA) [Mass fraction] 98 % Dr. Felix Bill Work Phone: 1(517)805-478672 [place] [address] 04-05-2023 10:22-0500 Body height 167.[address] Felix Bill Work Phone: 2(121)179-806066 [place] [address] 03-05-2023 12:43-0500 Body temperature 98.2 [degF] Eduar Rodríguez MD Work Phone: [place] [address]-07-2023 12:43-0500 Diastolic blood pressure 73 mm[Hg] Eduar Rodríguez Work Phone: [facility] [employer] 03-05-2023 12:43-0500 Heart rate 61 /min Eduar Rodríguez Work Phone: [facility] [employer] 03-05-2023 12:43-0500 Respiratory rate 17 /min Eduar Rodríguez Work Phone: [facility] [employer] 03-05-2023 12:43-0500 SaO2% (BldA) [Mass fraction] 100 % Eduar Rodríguez Work Phone: [employer] 03-05-2023 12:43-0500 Systolic blood pressure 96 mm[Hg] Eduar Anne MARIN Work Phone: [facility] [employer] 03-05-2023 04:18-0500 Body mass index (BMI) [Ratio] 26.43 kg/m2 Eduar Anne MARIN Work Phone: [facility] [employer] 03-05-2023 04:18-0500 Body weight 75.4 kg Eduar Rodríguez Work Phone: [facility] [employer] 03-01-2023 08:57-0400 Body height 168.9 cm Eduarchristophe Rodríguez MD Work Phone: [facility] [employer] 02-28-2023 10:50-0400 SaO2% (BldA) [Mass fraction] 99.0 % Eduarchristophe Rodríguez MD Work Phone: [facility] [employer] 02-19-2023 08:27-0400 Body height 167.6 cm Eduar Anne MARIN Work Phone: [employer] 02-19-2023 08:27-0400 Body mass index (BMI) [Ratio] 23.4 kg/m2 Eduar Anne MARIN Work Phone: [employer] 02-19-2023 08:27-0400 Body weight 65.77 kg Eduar Anne MARIN Work Phone: [employer] 02-19-2023 08:27-0400 Diastolic blood pressure 66 mm[Hg] Eduar Rodríguez MD Work Phone: [facility] 02-19-2023 08:27-0400 Heart rate 71 /min Eduar Rodríguez MD Work Phone: [facility] 02-19-2023 08:27-0400 Systolic blood pressure 132 mm[Hg] Eduar Rodríguez MD Work Phone: [facility] 02-13-2023 07:17-0400 Body height 167.[address] Felix Bill Work Phone: [facility] [place] 02-13-2023 07:17-0400 Body weight 63.[address] Felix Bill Work Phone: [facility] [place] 02-06-2023 08:59-0400 Body temperature 98.2 [degF] Leland Nguyen MD Work Phone: [facility] 02-06-2023 08:59-0400 Body weight 68.95 kg Leland Nguyen MD Work Phone: [facility] 02-06-2023 08:59-0400 Diastolic blood pressure 53 mm[Hg] Leland Nguyen MD Work Phone: [facility] 02-06-2023 08:59-0400 Heart rate 78 /min Leland Nguyen MD Work Phone: [facility] 02-06-2023 08:59-0400 SaO2% (BldA) [Mass fraction] 98 % Leland Nguyen MD Work Phone: [facility] 02-06-2023 08:59-0400 Systolic blood pressure 119 mm[Hg] Leland Nguyen MD Work Phone: [facility] 12-19-2022 10:04-0400 Body weight 65.77 kg Lise Cioce [employer] Work Phone: [facility] 12-19-2022 10:04-0400 Diastolic blood pressure 62 mm[Hg] Lise Cioce [employer] Work Phone: [facility] 12-19-2022 10:04-0400 Heart rate 73 /min Lise Cioce [employer] Work Phone: [facility] 12-19-2022 10:04-0400 SaO2% (BldA) [Mass fraction] 98 % Lise Cioce [employer] Work Phone: [facility] 12-19-2022 10:04-0400 Systolic blood pressure 142 mm[Hg] Lise Cioce [employer] Work Phone: [facility] 12-18-2022 11:03-0400 Body height 167.[address] Felix Bill Work Phone: [facility] [place] 12-18-2022 11:03-0400 Body mass index (BMI) [Ratio] 23.1 kg/m2 Dr. Felix Bill Work Phone: [facility] [place] 12-18-2022 11:03-0400 Body weight 64.[address] Felix Bill Work Phone: [facility] [place] 12-18-2022 11:03-0400 Diastolic blood pressure 68 mm[Hg] Dr. Felix Bill Work Phone: [facility] [place] 12-18-2022 11:03-0400 Heart rate 72 /min Dr. Felix Bill Work Phone: [facility] [place] 12-18-2022 11:03-0400 Respiratory rate 18 /min Dr. Felix Bill Work Phone: [facility] [place] 12-18-2022 11:03-0400 SaO2% (BldA) [Mass fraction] 99 % Dr. Felix Bill Work Phone: [facility] [place] 12-18-2022 11:03-0400 Systolic blood pressure 115 mm[Hg] Dr. Felix Bill Work Phone: [facility] [place] 12-18-2022 09:32-0400 Body height 167 cm Felix Bill MD Work Phone: [facility] 12-18-2022 09:32-0400 Body weight 64.86 kg Felix Bill MD Work Phone: [facility] 12-18-2022 09:32-0400 Diastolic blood pressure 50 mm[Hg] Felix Bill MD Work Phone: [facility] 12-18-2022 09:32-0400 Heart rate 76 /min Felix Bill MD Work Phone: [facility] 12-18-2022 09:32-0400 Respiratory rate 16 /min Felix Bill MD Work Phone: [facility] 12-18-2022 09:32-0400 Systolic blood pressure 114 mm[Hg] Felix Bill MD Work Phone: [facility] 10-12-2022 11:35-0400 Body weight 67.59 kg Lynn Older [employer] Work Phone: [facility] 10-12-2022 11:35-0400 Diastolic blood pressure 64 mm[Hg] Lynn Older [employer] Work Phone: [facility] 10-12-2022 11:35-0400 Heart rate 72 /min Lynn Older [employer] Work Phone: [facility] 10-12-2022 11:35-0400 Respiratory rate 16 /min Lynn Older [employer] Work Phone: [facility] 10-12-2022 11:35-0400 SaO2% (BldA) [Mass fraction] 100 % Lynn Older [employer] Work Phone: [facility] 10-12-2022 11:35-0400 Systolic blood pressure 122 mm[Hg] Lynn Older [employer] Work Phone: [facility] 08-27-2022 12:55-0400 Body temperature 97.7 [degF] Lynn Older [employer] Work Phone: [facility] 05-01-2023 12:55-0400 Body weight 68.49 kg Lynn Older [employer] Work Phone: [facility] 08-27-2022 12:55-0400 Diastolic blood pressure 62 mm[Hg] Lynn Older [employer] Work Phone: [facility] 08-27-2022 12:55-0400 Heart rate 68 /min Lynn Older [employer] Work Phone: [facility] 08-27-2022 12:55-0400 Systolic blood pressure 120 mm[Hg] Lynn Older [employer] Work Phone: [facility] 08-19-2022 15:30-0400 Diastolic blood pressure 56 mm[Hg] Dr. Felix Bill Work Phone: [facility] [place] 08-19-2022 15:30-0400 Systolic blood pressure 132 mm[Hg] Dr. Felix Bill Work Phone: [facility] [place] 08-19-2022 09:28-0400 Body temperature 99.6 [degF] Dr. Felix Bill Work Phone: [facility] [place] 08-19-2022 09:28-0400 Body weight [address] Felix Bill Work Phone: [facility] [place] 08-19-2022 09:28-0400 Heart rate 88 /min Dr. Felix Bill Work Phone: [facility] [place] 08-19-2022 09:28-0400 Respiratory rate 14 /min Dr. Felix Bill Work Phone: [facility] [place] 08-19-2022 09:28-0400 SaO2% (BldA) [Mass fraction] 96 % Dr. Felix Bill Work Phone: [facility] [place] 08-08-2022 14:51-0400 Body height 167.[address] Felix Bill Work Phone: [facility] [place] 08-08-2022 14:51-0400 Body mass index (BMI) [Ratio] 23.6 kg/m2 Dr. Felix Bill Work Phone: 1(346)810-275072 [place] [address] 08-08-2022 14:51-0400 Body weight 66.[address] Felix Bill Work Phone: 7(438)922-595972 [place] [address] 08-08-2022 14:51-0400 Diastolic blood pressure 69 mm[Hg] Dr. Felix Bill Work Phone: 3(510)207-002372 [place] [address] 08-08-2022 14:51-0400 Heart rate 69 /min Dr. Felix Bill Work Phone: 2(560)916-297066 [place] [address] 08-08-2022 14:51-0400 SaO2% (BldA) [Mass fraction] 96 % Dr. Felix Bill Work Phone: 1(437)220-086666 [place] [address] 08-08-2022 14:51-0400 Systolic blood pressure 127 mm[Hg] Dr. Felix Bill Work Phone: 5(285)923-681566 [place] [address] 06-14-2022 14:01-0500 Body height 167.[address] Felix Bill Work Phone: 6(849)395-012166 [place] [address] 06-14-2022 14:01-0500 Body mass index (BMI) [Ratio] 25.7 kg/m2 Dr. Felix Bill Work Phone: 9(781)909-657266 [place] [address] 06-14-2022 14:01-0500 Body weight 72.[address] Felix Bill Work Phone: 0(135)439-168066 [place] [address] 06-14-2022 14:01-0500 Diastolic blood pressure 60 mm[Hg] Dr. Felix Bill Work Phone: 0(292)039-372866 [place] [address] 06-14-2022 14:01-0500 Heart rate 72 /min Dr. Felix Bill Work Phone: 1(961)903-263566 [place] [address] 06-14-2022 14:01-0500 Respiratory rate 16 /min Dr. Felix Bill Work Phone: 7(321)888-720066 [place] [address] 06-14-2022 14:01-0500 Systolic blood pressure 144 mm[Hg] Dr. Felix Bill Work Phone: [facility] [place] 06-14-2022 08:38-0500 Body temperature 97.2 [degF] Felix Bill MD Work Phone: [facility] 06-14-2022 08:38-0500 Body weight 69.85 kg Felix Bill MD Work Phone: [facility] 06-14-2022 08:38-0500 Diastolic blood pressure 58 mm[Hg] Felix Bill MD Work Phone: [facility] 06-14-2022 08:38-0500 Heart rate 68 /min Felix Bill MD Work Phone: [facility] 06-14-2022 08:38-0500 Respiratory rate 16 /min Felix Bill MD Work Phone: [facility] 06-14-2022 08:38-0500 Systolic blood pressure 126 mm[Hg] Felix Bill MD Work Phone: [facility] 03-06-2022 08:15-0500 Diastolic blood pressure 67 mm[Hg] Felix Bill MD Work Phone: [facility] 03-06-2022 08:15-0500 Heart rate 65 /min Felix Bill MD Work Phone: [facility] 03-06-2022 08:15-0500 Systolic blood pressure 131 mm[Hg] Felix Bill MD Work Phone: [facility] 03-06-2022 08:05-0500 Body temperature 96.49 [degF] Felix Bill MD Work Phone: [facility] 03-06-2022 08:05-0500 Body weight 71.67 kg Felix Bill MD Work Phone: [facility] 03-06-2022 08:05-0500 Respiratory rate 12 /min Felix Bill MD Work Phone: [facility] 12-15-2021 09:43-0400 Diastolic blood pressure 56 mm[Hg] Felix Bill MD Work Phone: [facility] 12-15-2021 09:43-0400 Systolic blood pressure 124 mm[Hg] Felix Bill MD Work Phone: [facility] 12-15-2021 08:57-0400 Body temperature 96.69 [degF] Felix Bill MD Work Phone: [facility] 12-15-2021 08:57-0400 Body weight 69.04 kg Felix Bill MD Work Phone: [facility] 12-15-2021 08:57-0400 Heart rate 69 /min Felix Bill MD Work Phone: [facility] 12-15-2021 08:57-0400 SaO2% (BldA) [Mass fraction] 96 % Felix Bill MD Work Phone: [facility] 10-23-2021 08:46-0400 Body height 165.[address] [facility] 10-23-2021 08:46-0400 Body weight 69.[address] [facility] 09-12-2021 09:45-0400 Body temperature 97.7 [degF] Felix Bill MD Work Phone: [facility] 09-12-2021 09:45-0400 Body weight 68.49 kg Felix Bill MD Work Phone: [facility] 09-12-2021 09:45-0400 Diastolic blood pressure 62 mm[Hg] Felix Bill MD Work Phone: [facility] 09-12-2021 09:45-0400 Heart rate 68 /min Felix Bill MD Work Phone: [facility] 09-12-2021 09:45-0400 Respiratory rate 12 /min Felix Bill MD Work Phone: [facility] 09-12-2021 09:45-0400 Systolic blood pressure 124 mm[Hg] Felix Bill MD Work Phone: [facility] 05-31-2016 10:27-0500 BMI (Body Mass Index) 27.6 kg/m2 Kaitlynn Horton IN [employer] MARKETING ASSOCIATE [facility] Work Phone: 05-31-2016 10:27-0500 Body Temperature 98 [degF] Kaitlynn Horton [employer] MARK[employer] [facility] Work Phone: 05-31-2016 10:27-0500 BP Diastolic 73 mm[Hg] Kaitlynn Horton [employer] MARKETING ASSOCIATE [facility] Work Phone: 05-31-2016 10:27-0500 BP Systolic 132 mm[Hg] Kaitlynn Horton [employer] MARKETING ASSOCIATE [facility] Work Phone: 05-31-2016 10:27-0500 Height 167.64 cm Kaitlynn Horton NP [facility] Work Phone: 05-31-2016 10:27-0500 Pulse (Heart Rate) 67 /min Kaitlynn Horton [employer]IATE [facility] Work Phone: 05-31-2016 10:27-0500 Respiratory Rate 18 /min Kaitlynn Horton [employer]ING [employer]OCIATE [facility] Work Phone: 05-31-2016 10:27-0500 Weight 77.57 kg Kaitlynn Horton NP [facility] Work Phone: Encounters Encounter Date Encounter Type Care Provider Facility Start: 03-11-2025 ambulatory Felix Levi ty:[facility] [place] Start: 03-10-2025 ambulatory Felix Levi ty:[facility] Start: 03-10-2025 End: 03-10-2025 ambulatory Nakita IBANEZ Facility:[facility] [place] Start: 02-23-2025 End: 02-23-2025 ambulatory Felix Bill Facility:[facility] Start: 02-02-2025 End: 02-02-2025 Patient encounter procedure Lia Mcknight IN [employer] MARKETING ASSOCIATE-C -[facility] Work Phone: Start: 02-02-2025 End: 02-02-[address] Felix Bill MD Work Phone: [facility] Start: 12-01-2024 End: 12-01-2024 ambulatory FELIX BILL Facility:[facility] Start: 12-01-2024 Patient encounter procedure FELIX BILL [facility] Start: 11-10-2024 End: 11-10-2024 Patient encounter procedure Douglas Jimenez DO [facility] Work Phone: Start: 11-10-2024 End: 11-10-[address] Felix Bill MD Work Phone: [facility] Start: 11-02-2024 End: 11-02-2024 Telephone encounter Lise Lunae [employer] Work Phone: Endocrinology Comment on above: Patient Question (BD needles) Start: 10-21-2024 End: 10-21-2024 Telephone encounter Lise Mark Cioce [employer] Work Phone: Endocrinology Comment on above: OV Notes to DME Start: 10-21-2024 End: 10-21-2024 Patient encounter procedure Lise C Cioce [employer] Work Phone: Endocrinology Comment on above: Type 2 diabetes tomas itus without complication, with long-term current use of insulin (HCC) (Primary Dx) Start: 10-21-2024 End: 10-21-2024 ambulatory LISE Mark CIOCE Facility:[facility] Start: 10-08-2024 End: 10-08-2024 Telephone encounter Lise Mark Cioce [employer] Work Phone: Endocrinology Comment on above: Medication Problem Start: 08-31-2024 End: 08-31-2024 Telephone encounter Felix Bill MD Work Phone: [address] [place] [address] Comment on above: Patient Question Start: 08-27-2024 End: 08-28-2024 Refill Sonya Chase MD Work Phone: Endocrinology Comment on above: Refill Request Start: 08-26-2024 End: 08-26-[address] Marco Hurtado MD -[facility] Work Phone: Start: 08-26-2024 End: 08-26-2024 ambulatory Felix Bill Facility:[facility] Start: 08-19-2024 End: 08-19-2024 Office outpatient visit 10 minutes Lynn Vieyra [employer] Work Phone: [facility] [place] Comment on above: Herpes zoster withou t complications Start: 08-19-2024 End: 08-19-2024 ambulatory LYNN VIEYRA Facility:[facility] Start: 08-12-2024 End: 08-12-2024 ambulatory FELIX BILL Facility:[facility] Start: 08-12-2024 Non-patient / Non-visit Dr. Eduar sarmiento MD -[facility] Start: 08-12-2024 End: 08-12-2024 Patient encounter procedure Lynn Vieyra [employer] Work Phone: [facility] Comment on above: Herpes zoster withou t complication (Primary Dx) Start: 08-12-2024 End: 08-12-2024 ambulatory Nakita IBANEZ Facility:[facility] [place] Start: 08-05-[address] Marco Hurtado MD -[facility] Start: 08-03-2024 End: 08-04-2024 Refill Felix Bill MD Work Phone: [facility] [place] Comment on above: Refill Request Start: 07-29-2024 End: 07-29-2024 Patient encounter procedure Nakita IBANEZ -[facility] Work Phone: Start: 07-29-2024 End: 07-29-2024 ambulatory Nakita IBANEZ Facility:[facility] Start: 07-13-2024 End: 07-13-2024 Refill Lise C Cioce [employer] Work Phone: Endocrinology Comment on above: Refill Request Start: 06-25-2024 End: 06-25-2024 Refill Lise C Cioce [employer] Work Phone: Endocrinology Comment on above: Refill Request Start: 06-03-2024 End: 06-03-2024 ambulatory FELIX BILL Facility:[facility] Start: 06-03-2024 End: 06-03-2024 Office outpatient visit 15 minutes Feilx Bill MD Work Phone: [facility] [place] Comment on above: Other proteinuria (P rimary Dx); Primary hypertension; Diabetes mellitus type 2 with neurological manifestations (HCC); Ulcerative pancolitis without complication (HCC) Start: 05-28-2024 End: 05-28-2024 ambulatory FELIX BILL Facility:[facility] Start: 05-22-2024 End: 05-22-2024 ambulatory Felix Bill Facility:[facility] Start: 05-18-2024 End: 05-19-2024 Refill Lise C Cioce [employer] Work Phone: Endocrinology Comment on above: Refill Request Start: 05-08-2024 End: 05-08-2024 Refill Lise C Cioce [employer] Work Phone: Endocrinology Comment on above: Refill Request Start: 03-25-2024 End: 03-25-2024 ambulatory FELIX BILL Facility:[facility] Start: 03-25-2024 End: 03-25-2024 Patient encounter procedure Lise C Cioce [employer] Work Phone: Endocrinology Comment on above: Poorly controlled ty pe 2 diabetes mellitus (HCC) (Primary Dx) Start: 03-25-2024 End: 03-25-2024 Telephone encounter Lise C Cioce [employer] Work Phone: Endocrinology Comment on above: Updated OV Notes for CGM Start: 01-14-2024 End: 01-14-2024 Refill Felix Bill MD Work Phone: [facility] [place] Comment on above: Refill Request Start: 12-23-2023 End: 12-23-2023 Telephone encounter Lise C Cioce [employer] Work Phone: Endocrinology Comment on above: Orders ([facility]) Start: 12-08-2023 End: 12-08-2023 Refill Phoenix Walsh [employer] REP Work Phone: [facility] Start: 12-02-2023 End: 12-02-2023 Patient encounter procedure Felix Bill MD Work Phone: [facility] [place] Comment on above: Medicare annual well ness visit, subsequent (Primary Dx); Screening for depression; Encounter for screening examination for other mental health and behavioral disorders; Coronary artery disease involving [place] coronary artery of [place] heart without angina pectoris; Hyperlipidemia, unspecified hyperlipidemia type; Primary hypertension; Diabetes mellitus type 2 with neurological manifestations (HCC); Waldenstrom macroglobulinemia (HCC); Aortic valve replaced; S/P CABG x 2 Start: 08-19-2023 Refill Felix velez MD Work Phone: [facility] [place] Comment on above: Refill Request Start: 08-05-2023 ambulatory Yary Bur[facility] Comment on above: Population Health Na vigation Outreach ([employer] Gaps ) Start: 08-02-2023 Non-patient / Non-visit Dr. Liane Bill Work Phone: [facility] Start: 08-02-2023 End: 08-02-[address] Felix Bill Work Phone: [facility] Work Phone: Start: 08-02-2023 End: 08-02-[address] Felix Bill Work Phone: [facility] [place] Work Phone: Start: 07-31-[address] Tess Bill Work Phone: [facility] Start: 07-25-2023 End: 07-25-[address] Felix Bill Work Phone: [facility] Work Phone: Start: 07-18-2023 Telephone encounter Lise Flores ioce [employer] Work Phone: Endocrinology Comment on above: Medication Problem Start: 07-16-2023 End: 07-16-[address] Felix Bill Work Phone: [facility] Work Phone: Start: 07-15-2023 End: 07-15-[address] Felix Bill Work Phone: [facility] Work Phone: Start: 07-09-2023 ambulatory Lise Flores Cioce [employer] Work Phone: Endocrinology Comment on above: Lab Results Start: 07-09-2023 E-mail encounter fro m caregiver Lise Flores Cioce [employer] Work Phone: [facility] Start: 07-09-2023 Telephone encounter Lise Flores ioce [employer] Work Phone: Endocrinology Comment on above: Results Patient Question Start: 07-03-2023 End: 07-03-2023 Patient encounter procedure Lise lFores Cioce [employer] Work Phone: Endocrinology Comment on above: Type 2 diabetes tomas itus without complication, with long-term current use of insulin (HCC) (Primary Dx) Start: 07-02-2023 Non-patient / Non-visit Dr. Liane Bill Work Phone: [facility] Work Phone: Start: 07-01-2023 Telephone encounter Leland messina MD Work Phone: Hematology/Oncology Comment on above: Patient Question (Re questing referral faxed) Start: 06-06-2023 End: 06-06-[address] Felix Bill Work Phone: [facility] Work Phone: Start: 05-31-2023 End: 06-27-[address] Felix Bill Work Phone: [facility] Work Phone: Start: 05-31-2023 End: 06-27-[address] Felix Bill Work Phone: [facility] [place] Work Phone: Start: 05-29-2023 Telephone encounter Delores hsu RN Work Phone: Hematology/Oncology Comment on above: Future Appointment Start: 05-27-2023 End: 05-29-[address] Felix Bill Work Phone: [facility] Work Phone: Start: 05-27-2023 End: 05-29-[address] Felix Bill Work Phone: [facility] [place] Work Phone: Start: 05-20-2023 Non-patient / Non-visit Dr. Liane Bill Work Phone: [facility] Start: 05-20-2023 End: 05-20-2023 Admission to same day surgery center Dr. Felix Bill Work Phone: [facility] [place] Work Phone: Start: 05-20-2023 End: 05-20-[address] Felix Bill Work Phone: [facility] Work Phone: Start: 05-17-[address] Tess Bill Work Phone: [facility] Work Phone: Start: 04-26-2023 End: 04-28-[address] Felix Bill Work Phone: [facility] Work Phone: Start: 04-26-2023 End: 04-28-[address] Felix Bill Work Phone: [facility] Work Phone: Start: 04-16-2023 End: 04-16-[address] Felix Bill Work Phone: 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 Tess Bill Work Phone: [facility] Work Phone: Start: 04-05-2023 End: 04-05-[address] Felix Bill Work Phone: [facility] Work Phone: Start: 04-05-2023 End: 04-05-[address] Felix Bill Work Phone: [facility] Work Phone: Start: 04-04-2023 Telephone encounter Lise whitlock [employer] Work Phone: Endocrinology Comment on above: Patient Question Refill Request Start: 04-02-2023 Telephone encounter Eduar conner MD Work Phone: [facility] Start: 03-25-2023 End: 03-25-2023 Postop follow up visit related to original px Phoenix Walsh [employer] Work Phone: [facility] Comment on above: Aortic valve stenosi s, etiology of cardiac valve disease unspecified (Primary Dx); Coronary artery disease involving northwestern shoshone coronary artery of northwestern shoshone heart, unspecified whether angina present Start: 03-25-2023 End: 03-25-2023 ambulatory PHOENIX WALSH [facility] Start: 03-19-2023 End: 03-19-2023 ambulatory PHOENIX WALSH [facility] Start: 03-18-2023 Refill Lise Richter [employer] Work Phone: [facility] Comment on above: Refill Request Start: 03-14-2023 Telephone encounter Radha Looney RN [facility] Comment on above: hypotension Start: 03-11-2023 Telephone encounter Eduar conner MD Work Phone: [facility] Comment on above: Other Start: 03-01-2023 Documentation procedure Sumanth Woodson MD Work Phone: [facility] Start: 02-28-2023 End: 03-05-2023 Evaluation and management of inpatient MEE MOHR [facility] Start: 02-28-2023 End: 03-05-2023 Evaluation and management of inpatient Eduar Rodríguez MD Work Phone: [facility] Cardiac Thoracic Vascular Intensive Care Unit CTV ICU T1 Comment on above: 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); Aortic valve stenosis, etiology of cardiac valve disease unspecified; Coronary artery disease involving northwestern shoshone coronary artery of northwestern shoshone heart, unspecified whether angina present; Nonrheumatic aortic (valve) stenosis; Atherosclerotic heart disease of northwestern shoshone coronary artery without angina pectoris Start: 02-21-2023 Admission to [facility] Yary Alberts [employer] REP Work Phone: [facility] Comment on above: 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) Start: 02-21-2023 ambulatory Yary Alberts [employer]P Work Phone: [facility] Start: 02-19-2023 Admission to same da y surgery center Phoenix Walsh [employer]AMP[employer] REP Work Phone: [facility] Comment on above: 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) Start: 02-19-2023 End: 02-20-2023 ambulatory Phoenix Walsh [employer]AMP[employer]P Work Phone: [facility] Start: 02-19-2023 End: 02-19-2023 Encounter for other preprocedural examination EDUAR RODRÍGUEZ [facility] Start: 02-19-2023 End: 02-19-2023 Subsequent hospital visit by physician Ach Xr Exam Room 1 [facility] Comment on above: Arrived Start: 02-19-2023 End: 02-19-2023 Office outpatient new 60 minutes Eduar Rodríguez MD Work Phone: [facility] Comment on above: Aortic valve stenosi s, etiology of cardiac valve disease unspecified (Primary Dx); Coronary artery disease involving northwestern [place]one coronary artery of northwestern shoshone heart, unspecified whether angina present Start: 02-13-2023 End: 02-13-2023 Admission to same day surgery center Dr. Felix Bill Work Phone: [facility] Work Phone: Start: 02-13-2023 End: 02-13-[address] Felix Bill Work Phone: [facility] Work Phone: Start: 02-06-2023 Telephone encounter Delores hsu RN Work Phone: Hematology/Oncology Comment on above: Care Coordination (I ntroduction) AVS 02/06/23; CHEMO START Start: 02-06-2023 End: 02-06-2023 ambulatory Leland Nguyen MD Work Phone: Hematology/Oncology Comment on above: Lymphoplasmacytic ly mphoma (HCC) Start: 02-06-2023 End: 02-06-2023 Patient encounter procedure Leland Nguyen MD Work Phone: [facility] Start: 01-29-2023 Non-patient / Non-visit Dr. 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] Start: 01-22-2023 End: 01-22-2023 Subsequent hospital visit by physician Ct [facility] Cat Scan Start: 01-21-2023 Orders Only Cam Galvez Work Phone: Hematology/Oncology Comment on above: Monoclonal gammopath y (Primary Dx); Anemia, unspecified type Start: 01-10-2023 ambulatory Lise Richter [employer] Work Phone: Endocrinology Comment on above: Blood Sugar readings Start: 01-10-2023 E-mail encounter fro m caregiver Lise Richter [employer]P Work Phone: [facility] Start: 01-09-2023 Telephone encounter Lise whitlock [employer] Work Phone: Endocrinology Comment on above: Patient Update Start: 01-08-2023 Non-patient / Non-visit Dr. Liane Bill Work Phone: [facility] Start: 01-08-2023 End: 01-08-[address] Felix Bill Work Phone: [facility] Work Phone: Start: 01-08-2023 End: 01-08-[address] 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] Start: 12-26-2022 Telephone encounter Lise whitlock [employer]P Work Phone: Endocrinology Comment on above: MSC Order (Dexcom G7 ) Start: 12-24-2022 End: 12-24-2022 Subsequent hospital visit by physician [facility] Mob 1 Work Phone: Radiology Comment on above: Other proteinuria [R 80.8] Start: 12-22-2022 Orders Only Felix velez MD Work Phone: [facility] [place] Comment on above: Monoclonal gammopath y of undetermined significance (Primary Dx); Anemia, unspecified type Results Start: 12-19-2022 End: 12-19-2022 Patient encounter procedure Lise Richter [employer] Work Phone: Endocrinology Comment on above: Type II diabetes chelsie litus with manifestations (HCC) (Primary Dx); Diabetes mellitus type 2 with neurological manifestations (HCC) Start: 12-18-2022 End: 12-18-[address] Felix Bill Work Phone: [facility] Work Phone: Start: 12-18-2022 End: 12-18-2022 Patient encounter procedure Felix Bill MD Work Phone: [facility] [place] Comment on above: Medicare annual well ness visit, subsequent (Primary Dx); Anemia, unspecified type; Diabetes mellitus type 2 with neurological manifestations (HCC); Hyperlipidemia, unspecified hyperlipidemia type; Primary hypertension; Aortic stenosis, moderate; Other proteinuria; Hypoalbuminemia; Ulcerative pancolitis without complication (HCC); Abnormal weight loss Start: 11-26-2022 Refill Felix velez MD Work Phone: [facility] [place] Comment on above: Refill Request Start: 11-23-2022 End: 11-23-[address] Felix Bill Work Phone: [facility] Work Phone: Start: 11-23-2022 End: 11-23-[address] Felix Bill Work Phone: [facility], [facility] Work Phone: Start: 11-14-2022 Refill Felix velez MD Work Phone: [facility] [place] Comment on above: Refill Request Start: 10-29-2022 Refill Felix velez MD Work Phone: [facility] [place] Comment on above: Refill Request Start: 10-17-2022 Telephone encounter Lynn Older [employer] REP Work Phone: [facility] [place] Comment on above: Results Start: 10-12-2022 End: 10-12-2022 Patient encounter procedure Lynn Older [employer] REP Work Phone: [facility] [place] Comment on above: Pneumonia of right l luis due to infectious organism, unspecified part of lung (Primary Dx); Anemia, unspecified type Start: 10-09-2022 End: 10-09-2022 Subsequent hospital visit by physician [facility] (I-Stat) Work Phone: Cat Scan Comment on above: Chest pain, unspecif ied type [R07.9] Start: 10-09-2022 Telephone encounter Lynn Older [employer] REP Work Phone: [facility] [place] Comment on above: Results Start: 08-27-2022 Telephone encounter Lynn Older [employer]P Work Phone: [facility] [place] Comment on above: Results Start: 08-27-2022 End: 08-27-2022 Subsequent hospital visit by physician X[facility] Katelyn Work Phone: Radiology Comment on above: Acute cough [R05.1] Start: 08-27-2022 End: 08-27-2022 Patient encounter procedure Lynn Older [employer] REP Work Phone: [facility] [place] Comment on above: Acute cough (Primary Dx); Acute conjunctivitis of right eye, unspecified acute conjunctivitis type Start: 08-19-2022 End: 08-19-[address] Felix Bill Work Phone: [facility] Work Phone: Start: 08-08-2022 End: 08-08-[address] Felix Bill Work Phone: [facility] Work Phone: Start: 07-16-2022 Refill Felix velez MD Work Phone: [facility] [place] Comment on above: Refill Request Start: 06-22-2022 Non-patient / Non-visit Dr. Liane Bill Work Phone: [facility] Start: 06-22-2022 End: 06-22-[address] Felix Bill Work Phone: [facility] Work Phone: Start: 06-22-2022 End: 06-22-[address] [facility] Start: 06-14-2022 End: 06-14-[address] 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 Liane Bill Work Phone: [facility] Start: 03-06-2022 End: 03-06-2022 Patient encounter procedure Felix Bill MD Work Phone: [facility] [place] Comment on above: Hyperlipidemia, unsp ecified hyperlipidemia type (Primary Dx); Diabetes mellitus type 2 with neurological manifestations (HCC); Primary hypertension; Anemia, unspecified type; Nonrheumatic mitral valve regurgitation Start: 12-27-2021 Telephone encounter Felix fontenot MD Work Phone: [facility] Comment on above: Patient Update Start: 12-15-2021 End: 12-15-2021 Patient encounter procedure Felix Bill MD Work Phone: [facility] [place] Comment on above: Diabetes mellitus ty pe 2 with neurological manifestations (HCC) (Primary Dx); Hyperlipidemia, unspecified hyperlipidemia type; Primary hypertension Start: 11-06-2021 Refill Felix velez MD Work Phone: [facility] [place] Comment on above: Refill Request Start: 10-31-2021 Telephone encounter Felix fontenot MD Work Phone: [facility] [place] Comment on above: Medication Question Start: 10-23-2021 End: 10-23-[address] Nutrition Therapy Comment on above: Patient Education; A ssessment Start: 10-03-2021 Refill Felix velez MD Work Phone: [facility] [place] Comment on above: Refill Request Start: 09-29-2021 Telephone encounter Felix fontenot MD Work Phone: [facility] [place] Comment on above: patient update/jose rns Start: 09-27-2021 Telephone encounter Felix fontenot MD Work Phone: [facility] [place] Comment on above: diet plan Start: 09-12-2021 End: 09-12-2021 Patient encounter procedure Felix Bill MD Work Phone: [facility] [place] Comment on above: Diabetes mellitus ty pe 2 with neurological manifestations (HCC) (Primary Dx); Primary hypertension; Aortic stenosis, moderate Start: 09-01-2021 Refill Felix velez MD Work Phone: [facility] [place] Comment on above: Refill Request ([facility]) Start: 08-21-2021 Refill Felix velez MD Work Phone: [facility] [place] Comment on above: Refill Request Start: 12-22-2020 Refill Claude jimenez MD Work Phone: Neurology Comment on above: Refill Request Procedures Date Procedure Procedure Detail Performing Clinician Start: 10-21-2024 Hemoglobin A1c/Hemoglobin.total in Blood Lise C Cioce [employer] Work Phone: Start: 08-19-2024 Follow-up visit Follow Up LYNN VIEYRA Start: 08-05-2024 Albumin/Globulin ratio Dr. Felix Bill MD Work Phone: Start: 08-05-[address] Tess Bill MD Work Phone: Start: 08-05-[address] Tess Bill MD Work Phone: Start: 08-05-[address] Felix Bill MD Work Phone: Comment on above: Results confirmed ondilution. Start: 08-05-2024 Total iron binding capacity measurement Dr. Felix Bill MD Work Phone: Start: 08-05-2024 Urine lambda light chain measurement Dr. Felix Bill MD Work Phone: Start: 03-25-2024 Hemoglobin A1c/Hemoglobin.total in Blood Lise C Cioce [employer] Work Phone: Start: 02-13-2024 Assay of phosphorus inorganic Dr. Felix Bill MD Work Phone: Comment on above: Moderate Lipemia, Result may be falsely decreased. Start: 02-13-2024 Endom[address]ial antibody IgA level Dr. Felix Bill MD Work Phone: Start: 02-13-[address] Felix Bill MD Work Phone: Start: 02-13-2024 Gliadin antibody, IgA measurement Dr. Liane Bill MD Work Phone: Comment on above: Negative 0 - 19 Weak Positive 20 - 30 Mo derate to Strong Positive >30 Start: 02-13-2024 Gliadin antibody, IgG measurement Dr. Liane Bill MD Work Phone: Comment on above: Negative 0 - 19 Weak Positive 20 - 30 Mo derate to Strong Positive >30 Start: 02-13-2024 Measurement of renal function Dr. Felix Bill MD Work Phone: Comment on above: GFR Calc Start: 12-02-2023 Adult depression screening assessment Felix Bill MD Work Phone: Start: 09-05-[address] Felix Bill MD Work Phone: Start: 09-05-2023 Measurement of occult blood in stool specimen using immunoassay Dr. Felix Bill MD Work Phone: Start: 09-04-[address] Felix Bill MD Work Phone: Comment on above: Performed at: [address] [id number] Director: Elías Bush PhD, Phone: [phone] Start: 07-23-[address] of whole body Dr. Felix Bill Work Phone: Start: 07-16-2023 Hepatitis B surface antibody measurement Dr. Felix Bill MD Work Phone: Comment on above: Non Reactive: Inconsistent with immunity , less than 10 mIU/mL Reactive: Consistent with immunity, greater than 9.9 mIU/mL Start: 07-16-2023 Hepatitis C virus recombinant immunoblot measurement Dr. Felix Bill MD Work Phone: Start: 07-16-2023 Quantitative measurement of cryoglobulin in serum specimen Dr. Felix Bill MD Work Phone: Comment on above: None Detected at 72 hoursThis test was d eveloped and its performance characteristicsdetermined by [facility]. It has not been cleared orapproved by the Food and Drug Administration. Start: 07-03-2023 Hemoglobin A1c/Hemoglobin.total in Blood Lise Richter [employer] Work Phone: Start: 05-20-[address] Felix Bill Work Phone: Start: 03-05-2023 Radiologic exam chest single view Parul Duran Jillain [employer] - [employer]AMPUS REP Work Phone: Start: 03-05-2023 Glucose quantitative blood xcpt reagent strip Eduar Rodríguez MD Work Phone: Start: 03-05-2023 Thoracentesis needle/cath pleura w/imaging Phoenix Roger Jillian [employer] - [employer]AMPUS REP Work Phone: Start: 03-05-2023 Glucose quantitative blood xcpt reagent strip Eduar Rodríguez MD Work Phone: Start: 03-05-2023 Radiologic exam chest single view Parul Duran Jillian [employer] - [employer]AMPUS REP Work Phone: Start: 03-05-2023 Basic metabolic panel calcium total Phoenix R Jillian [employer] HEL[employer] - CAMPUS REP Work Phone: Start: 03-04-2023 Glucose quantitative blood xcpt reagent strip Eduar Rodríguez MD Work Phone: Start: 03-04-2023 Glucose quantitative blood xcpt reagent strip Eduar Rodríguez MD Work Phone: Start: 03-04-2023 Glucose quantitative blood xcpt reagent strip Eduar Rodríguez MD Work Phone: Start: 03-04-2023 Glucose quantitative blood xcpt reagent strip Eduar Rodríguez MD Work Phone: Start: 03-04-2023 Radiologic exam chest single view Parul Walsh [employer]AMPUS REP Work Phone: Start: 03-04-2023 Basic metabolic panel calcium total Phoenix Walsh [employer] HEL[employer] - CAMPUS REP Work Phone: Start: 03-03-2023 Glucose quantitative blood xcpt reagent strip Eduar Rodríguez MD Work Phone: Start: 03-03-2023 Glucose quantitative blood xcpt reagent strip Eduar Rodríguez MD Work Phone: Start: 03-03-2023 Glucose quantitative blood xcpt reagent strip Eduar Rodríguez MD Work Phone: Start: 03-03-2023 Radiologic exam chest single view Parul Walsh [employer] - [employer]AMPUS REP Work Phone: Start: 03-02-2023 Basic metabolic panel calcium total Phoenix Walsh [employer] HEL[employer] - CAMPUS REP Work Phone: Start: 03-02-2023 Glucose quantitative blood xcpt reagent strip Eduar Rodríguez MD Work Phone: Start: 03-02-2023 Glucose quantitative blood xcpt reagent strip Eduar Rodríguez MD Work Phone: Start: 03-02-2023 Glucose quantitative blood xcpt reagent strip Eduar Rodríguez MD Work Phone: Start: 03-02-2023 End: 03-02-2023 Glucose quantitative blood xcpt reagent strip Eduar Rodríguez MD Work Phone: Start: 03-02-2023 Glucose quantitative blood xcpt reagent strip Eduar Rodríguez MD Work Phone: Start: 03-02-2023 Glucose quantitative blood xcpt reagent strip Eduar Rodríguez MD Work Phone: Start: 03-02-2023 Glucose quantitative blood xcpt reagent strip Eduar Rodríguez MD Work Phone: Start: 03-02-2023 End: 03-02-2023 Glucose quantitative blood xcpt reagent strip Eduar Rodríguez MD Work Phone: Start: 03-02-2023 Radiologic exam chest single view Matthe w R Jillian [employer] - CAMPUS REP Work Phone: Start: 03-02-2023 End: 03-02-2023 Glucose quantitative blood xcpt reagent strip Eduar Rodríguez MD Work Phone: Start: 03-02-2023 End: 03-02-2023 Glucose quantitative blood xcpt reagent strip Eduar Rodríguez MD Work Phone: Start: 03-02-2023 End: 03-02-2023 Basic metabolic panel calcium total Phoenix Walsh [employer] HELPER - CAMPUS REP Work Phone: Start: 03-01-2023 Glucose quantitative blood xcpt reagent strip Eduar Rodríguez MD Work Phone: Start: 03-01-2023 End: 03-01-2023 Glucose quantitative blood xcpt reagent strip Eduar Rodríguez MD Work Phone: Start: 03-01-2023 Glucose quantitative blood xcpt reagent strip Eduar Rodríguez MD Work Phone: Start: 03-01-2023 End: 03-01-2023 Glucose quantitative blood xcpt reagent strip Eduar Rodríguez MD Work Phone: Start: 03-01-2023 Glucose quantitative blood xcpt reagent strip Eduar Rodríguez MD Work Phone: Start: 03-01-2023 End: 03-01-2023 Blood count hematocrit Phoenix Walsh [employer] - CAMPUS [employer]P Work Phone: Start: 03-01-2023 End: 03-01-2023 Glucose quantitative blood xcpt reagent strip Eduar Rodríguez MD Work Phone: Start: 03-01-2023 Compatibility each unit electronic Phoenix Walsh [employer] HELPER - CAMPUS REP Work Phone: Start: 03-01-2023 End: 03-01-2023 TRANSFUSE RED BLOOD CELLS Phoenix Reina t BOT[employer]ER HELPER - CAMPUS REP Work Phone: Start: 03-01-2023 Glucose quantitative blood xcpt reagent strip Eduar Rodríguez MD Work Phone: Start: 03-01-2023 Glucose quantitative blood xcpt reagent strip Eduar Rodríguez MD Work Phone: Start: 03-01-2023 Glucose quantitative blood xcpt reagent strip Eduar Rodríguez MD Work Phone: Start: 03-01-2023 Ecg routine ecg w/least 12 lds trcg only w/o i&r [employer] B[employer] - CAMPUS REP Work Phone: Start: 03-01-2023 Glucose quantitative blood xcpt reagent strip Eduar Rodríguez MD Work Phone: Start: 03-01-2023 Radiologic exam chest single view Angeloe margot Duran [employer] B[employer]ER HELPER - CAMPUS REP Work Phone: Start: 03-01-2023 Ecg routine ecg w/least 12 lds trcg only w/o i&r [employer] - CAMPUS REP Work Phone: Start: 03-01-2023 Glucose quantitative blood xcpt reagent strip Eduar Rodríguez MD Work Phone: Start: 03-01-2023 Antibody screen EDUAR RODRÍGUEZ Comment on above: Performed By: #### [id number] ####Medical Di albert: KATERINE BOLTON ([id number])[facility] ([address] Start: 03-01-2023 Glucose quantitative blood xcpt reagent strip Eduar Rodríguez MD Work Phone: Start: 03-01-2023 Basic metabolic panel calcium total Phoenix Roger [employer] B[employer]PER - CAMPUS REP Work Phone: Start: 03-01-2023 Blood typing serologic rh (d) Eduar conner MD Work Phone: Start: 02-28-2023 End: 02-28-2023 Glucose quantitative blood xcpt reagent strip Eduar Rodríguez MD Work Phone: Start: 02-28-2023 End: 02-28-2023 Glucose quantitative blood xcpt reagent strip Eduar Rodríguez MD Work Phone: Start: 02-28-2023 End: 02-28-2023 Glucose quantitative blood xcpt reagent strip Eduar Rodríguez MD Work Phone: Start: 02-28-2023 Glucose quantitative blood xcpt reagent strip Eduar Rodríguez MD Work Phone: Start: 02-28-2023 EXTUBATION Phoenix Walsh APRN - CAMPUS REP Work Phone: Start: 02-28-2023 Glucose quantitative blood xcpt reagent strip Eduar Rodríguez MD Work Phone: Start: 02-28-2023 Glucose quantitative blood xcpt reagent strip Eduar Rodríguez MD Work Phone: Start: 02-28-2023 History of coronary artery bypass grafting S/P CABG x 2 Felix Bill MD Work Phone: Start: 02-28-2023 End: 02-28-2023 Blood count complete automated Phoenix Walsh [employer] - CAMPUS [employer]P Work Phone: Start: 02-28-2023 Echo transesophag r-t 2d w/prb img acquisj i&r Eduar Rodríguez MD Work Phone: Start: 02-28-2023 Radiologic exam chest single view Parul Walsh [employer] - CAMPUS REP Work Phone: Start: 02-28-2023 Compatibility each unit electronic Eduar Rodríguez MD Work Phone: Start: 02-28-2023 Ecg routine ecg w/least 12 lds trcg only w/o i&r Phoenix Walsh B[employer]ER HELPER - CAMPUS REP Work Phone: Start: 02-28-2023 End: 02-28-2023 Basic metabolic panel calcium total Eduar Rodríguez MD Work Phone: Start: 02-28-2023 Blood gases any combination ph pco2 po2 co2 hco3 Eduar Rodríguez MD Work Phone: Start: 02-28-2023 End: 02-28-2023 TRANSFUSE RED BLOOD CELLS [facility] [facility] Start: 02-28-2023 End: 02-28-2023 Cabg w/arterial graft three arterial grafts Eduar Rodríguez MD Work Phone: Start: 02-28-2023 End: 02-28-2023 Echo transesophag r-t 2d w/prb img acquisj i&r Eduar Rodríguez MD Work Phone: Start: 02-28-2023 End: 02-28-2023 Rplcmt prost aortic valve open xcp homogrf/stent Eduar Rodríguez MD Work Phone: Start: 02-28-2023 End: 02-28-2023 Glucose quantitative blood xcpt reagent strip Eduar Rodríguez MD Work Phone: Start: 02-19-2023 Antibody screen EDUAR RODRÍGUEZ Comment on above: Performed By: #### [id number] ####Medical Di albert: KATERINE BOLTON ([phone])[facility] BLOOD [facility] ([address] Start: 02-19-2023 Radiologic exam chest 2 views Caroline mo [employer] Work Phone: Start: 01-22-2023 Ct abdomen & pelvis w/contrast material Leland Nguyen MD Work Phone: Start: 01-22-2023 Ct thorax w/contrast material Leland messina MD Work Phone: Start: 12-28-2022 Radiologic examination osseous survey compl Leland Nguyen MD Work Phone: Start: 12-24-2022 Us retroperitoneal real time w/image complete Felix Bill MD Work Phone: Start: 11-23-2022 Pelvis X-ray Dr. Felix Bill Work Phone: Start: 11-23-2022 X-ray of lumbosacral spine Dr. Felix Bill Work Phone: Start: 10-09-2022 Ct thorax w/contrast material Lynn Older [employer] Work Phone: Start: 08-27-2022 Radiologic exam chest 2 views Lynnrock Louis hberger [employer]P Work Phone: Start: 09-14-2020 Adult depression screening assessment Felix Bill MD Work Phone: History of coronary artery bypass grafting Status post coronary artery bypass graft Phoenix Duran Jillian [employer] Work Phone: History of coronary artery bypass grafting S/P CABG x 2 Dr. Felix Bill Work Phone: Comment on above: SINGER to LAD, SVG to posterolateral of RC A 02/28/23 Dr. Price History of coronary artery bypass grafting S/P CABG x 2 Felix Bill MD Work Phone: History of coronary artery bypass grafting S/P CABG x 2 Nakita IBANEZ History of coronary artery bypass grafting S/P CABG x 2 Lia Mcknight [employer] Plan of Treatment Date Care Activity Detail Author Start: 06-15-2031 DTaP/Tdap/Td Vaccines (2 - Td or Tdap) DTaP/Tdap/Td Vaccines (2 - Td or Tdap) [facility] Start: 08-19-2025 Annual PCP Team Chronic Disease Visit Annual PCP Team Chronic Disease Visit [facility] Start: 08-12-2025 Annual PCP Team Chronic Disease Visit Annual PCP Team Chronic Disease Visit [facility] Start: 06-04-2025 Glaucoma screening Dilated Retinal Exam [facility] Start: 06-03-2025 Annual PCP Team Chronic Disease Visit Annual PCP Team Chronic Disease Visit [facility] Start: 06-03-2025 BP Controlled (<130/80) BP Controlled (<130/80) [facility] in Start: 05-28-2025 Hepatitis B screening Urine Albumin:Creatinine Ratio [facility] Start: 05-28-2025 Hepatitis B surface antibody level LDL Cholesterol [facility] Start: 04-22-2025 Hemoglobin A1c measurement HbA1C [facility] Start: 02-02-2025 Radionuclide imaging of perfusion of myocardium under exercise stress [facility] Start: 02-02-2025 End: 02-02-2025 Evaluation of diagnostic study results [facility] Start: 12-28-2024 Influenza vaccination [facility] Start: 12-01-2024 Annual PCP Team Chronic Disease Visit Annual PCP Team Chronic Disease Visit [facility] Start: 12-01-2024 Anxiety Screening Anxiety Screening [facility] Start: 12-01-2024 BP Controlled (<130/80) BP Controlled (<130/80) [facility] Start: 12-01-2024 Depression Screening Depression Screening [facility] Start: 12-01-2024 Diabetic foot examination Diabetic Foot Exam [facility] Start: 12-01-2024 End: 12-01-2024 Patient encounter procedure 12/01/2024 9:40 AM EDT Office Visit [facility] [address] [place] [address] Felix Bill MD [address] [place] [address] Annual Medicare Wellness w/6 month follow-up [facility] Comment on above: Annual Medicare Wellness w/6 month follo w-up Start: 11-25-2024 Hemoglobin A1c measurement HbA1C [facility] Start: 10-26-2024 Influenza vaccination Influenza Vaccine (#1) [facility] Comment on above: Postponed from 12/29/2023 (Declined at t his time) Start: 10-21-2024 End: 10-21-2024 Patient encounter procedure Endocrinology Comment on above: 6 month follow up T2dm 6 month follow up send OV notes to [facility] Start: 09-27-2024 End: 12-27-2024 Comprehensive metabolic 2000 panel - Serum or Plasma COMPREHENSIVE METABOLIC PANEL Lab Routine Poorly controlled type 2 diabetes mellitus (HCC) Expected: 09/27/2024, Expires: 12/27/2024 [facility] Work Phone: Comment on above: Expected: 09/27/2024, Expires: Start: 09-27-2024 End: 12-27-2024 Hemoglobin A1c in Blood HEMOGLOBIN A1C Lab Routine Poorly controlled type 2 diabetes mellitus (HCC) Expected: 09/27/2024, Expires: 12/27/2024 [facility] Comment on above: Expected: 09/27/2024, Expires: Start: 09-27-2024 End: 12-27-2024 LIPID PANEL, NONFASTING LIPID PANEL, NONFASTING Lab Routine Poorly controlled type 2 diabetes mellitus (HCC) Expected: 09/27/2024, Expires: 12/27/2024 [facility] Comment on above: Expected: 09/27/2024, Expires: Start: 09-27-2024 End: 12-27-2024 Microalbumin/Creatinine [Mass Ratio] in Urine ALBUMIN/CREATININE RATIO, URINE Lab Routine Poorly controlled type 2 diabetes mellitus (HCC) Expected: 09/27/2024, Expires: 12/27/2024 [facility] Comment on above: Expected: 09/27/2024, Expires: Start: 09-22-2024 Hemoglobin A1c measurement HbA1C [facility] Start: 08-19-2024 End: 08-19-2024 Patient encounter procedure 08/19/2024 9:20 AM EDT Office Visit Internal Medicine [place] [address] [place], [place] [id number] Lynn Vieyra, [employer]P [address] [place], [place] [id number] 1 week follow up [facility] Comment on above: 1 week follow up Start: 07-11-2024 Glaucoma screening Dilated Retinal Exam [facility] Start: 07-02-2024 BP Controlled (<130/80) BP Controlled (<130/80) [facility] Start: 06-03-2024 End: 09-02-2024 Basic metabolic 2000 panel - Serum or Plasma BASIC METABOLIC PANEL Lab Routine Diabetes mellitus type 2 with neurological manifestations (HCC) Expected: 06/03/2024, Expires: 09/02/2024 [facility] Work Phone: Comment on above: Expected: 06/03/2024, Expires: Start: 06-03-2024 End: 09-02-2024 Hemoglobin A1c in Blood HEMOGLOBIN A1C Lab Routine Diabetes mellitus type 2 with neurological manifestations (HCC) Expected: 06/03/2024, Expires: 09/02/2024 [facility] Comment on above: Expected: 06/03/2024, Expires: Start: 06-03-2024 End: 09-02-2024 Lipid 1996 panel - Serum or Plasma LIPID PANEL BASIC Lab Routine Diabetes mellitus type 2 with neurological manifestations (HCC) Expected: 06/03/2024, Expires: 09/02/2024 [facility] Comment on above: Expected: 06/03/2024, Expires: Start: 06-03-2024 End: 09-02-2024 Microalbumin/Creatinine [Mass Ratio] in Urine ALBUMIN/CREATININE RATIO, URINE Lab Routine Diabetes mellitus type 2 with neurological manifestations (HCC) Expected: 06/03/2024, Expires: 09/02/2024 [facility] Comment on above: Expected: 06/03/2024, Expires: Start: 06-03-2024 End: 09-02-2024 Urinalysis complete panel - Urine [facility] Work Phone: Comment on above: Expected: 06/03/2024, Expires: Start: 06-03-2024 End: 06-03-2024 Patient encounter procedure 06/03/2024 10:40 AM EST Office Visit [facility] [address] [place] [address] Felix Bill MD [address] [place] [address] 6 month follow up [facility] Comment on above: 6 month follow up Start: 05-23-2024 BP Controlled (<130/80) BP Controlled (<130/80) [facility] Start: 04-29-2024 Advance Directive Discussion Advance Directive Discussion [facility] Start: 04-29-2024 Medicare Advantage Annual Wellness Visit Medicare Advantage Annual Wellness Visit [facility] Start: 02-07-2024 BP Controlled (<130/80) BP Controlled (<130/80) [facility] Start: 01-07-2024 Vital signs measurements [facility] Start: 01-03-2024 Hemoglobin A1c measurement HbA1C [facility] Start: 01-01-2024 Vital signs measurements [facility] Start: 12-29-2023 Influenza vaccination [facility] Start: 12-25-2023 Vital signs measurements [facility] Start: 12-19-2023 ANNUAL PCP TEAM CHRONIC DISEASE VISIT ANNUAL PCP TEAM CHRONIC DISEASE VISIT [facility] Start: 12-19-2023 BP CONTROLLED (<130/80) BP CONTROLLED (<130/80) [facility] Start: 12-18-2023 Vital signs measurements [facility] Start: 12-12-2023 Hepatitis B screening URINE ALBUMIN:CREATININE RATIO [facility] Start: 12-12-2023 Hepatitis B surface antibody level LDL CHOLESTEROL [facility] Start: 12-02-2023 End: 12-02-2023 Patient encounter procedure 12/02/2023 12:00 PM EDT Office Visit [facility] [address] [place] [address] Felix Bill MD [address] [place] [address] MEDICARE WELLNESS [id number] [facility] [place] Comment on above: MEDICARE WELLNESS Z00.00 Start: 10-13-2023 ANNUAL PCP TEAM CHRONIC DISEASE VISIT ANNUAL PCP TEAM CHRONIC DISEASE VISIT [facility] Start: 10-13-2023 BP CONTROLLED (<130/80) BP CONTROLLED (<130/80) [facility] Start: 10-09-2023 ANNUAL PCP TEAM CHRONIC DISEASE VISIT ANNUAL PCP TEAM CHRONIC DISEASE VISIT [facility] Start: 10-09-2023 BP CONTROLLED (<130/80) BP CONTROLLED (<130/80) [facility] Start: 09-18-2023 Vital signs measurements [facility] Start: 09-11-2023 Vital signs measurements [facility] Start: 09-04-2023 Vital signs measurements [facility] Start: 09-03-2023 End: 09-03-2023 ambulatory 09/03/2023 10:20 AM EDT Visit (SP) Office Hematology/Oncology [address] [place] [address] [place] [address] [place] [address] OV / LABS Early * Hematology/Oncology Comment on above: OV / LABS Early * Start: 08-28-2023 ANNUAL PCP TEAM CHRONIC DISEASE VISIT ANNUAL PCP TEAM CHRONIC DISEASE VISIT [facility] Start: 08-28-2023 BP CONTROLLED (<130/80) BP CONTROLLED (<130/80) [facility] Start: 08-28-2023 Following clinical pathway protocol [facility] Start: 08-28-2023 Vital signs measurements [facility] Start: 08-26-2023 End: 08-26-2023 Nutrition therapy 08/26/2023 11:00 AM EDT Education Nutrition Therapy [address] [place] [address] Trish Islas, [address] [place] [address] Poorly controlled type 2 diabetes mellitus (HCC) [E11.65] [facility] Comment on above: Poorly controlled type 2 diabetes mellit us (HCC) [E11.65] Start: 08-26-2023 End: 08-26-2023 ambulatory 08/26/2023 9:00 AM EDT Results Only [facility] [address] [place] [address] CBC/ CMP/ IGM/ MONOCLONAL PROTEIN/ PROTEIN ELECTROPHORESIS/ KAPPA/SAM,FREE [facility] Comment on above: CBC/ CMP/ IGM/ MONOCLONAL PROTEIN/ PROTE IN ELECTROPHORESIS/ KAPPA/SAM,FREE Start: 07-03-2023 End: 10-02-2023 Glutamate decarboxylase 65 Ab [Units/volume] in Serum [facility] Work Phone: Comment on above: Expected: 07/03/2023, Expires: 4 Start: 07-03-2023 End: 10-02-2023 Pancreatic islet cell Ab [Titer] in Serum [facility] Work Phone: Comment on above: Expected: 07/03/2023, Expires: 4 Start: 06-14-2023 ANNUAL PCP TEAM CHRONIC DISEASE VISIT ANNUAL PCP TEAM CHRONIC DISEASE VISIT [facility] Start: 06-14-2023 BP CONTROLLED (<130/80) BP CONTROLLED (<130/80) [facility] Start: 05-30-2023 End: 07-30-2023 ALBUMIN/CREAT RATIO RND UR ALBUMIN/CREAT RATIO RND UR Lab Routine Type II diabetes mellitus with manifestations (HCC) Expected: 05/30/2023, Expires: 07/30/2023 [facility] Work Phone: Comment on above: Expected: 05/30/2023, Expires: Start: 05-30-2023 End: 07-30-2023 Comprehensive metabolic 2000 panel - Serum or Plasma COMP METABOLIC PANEL Lab Routine Type II diabetes mellitus with manifestations (HCC) Expected: 05/30/2023, Expires: 07/30/2023 [facility] Work Phone: Comment on above: Expected: 05/30/2023, Expires: 4 Start: 05-30-2023 End: 07-30-2023 Hemoglobin A1c in Blood HGB A1C Lab Routine Type II diabetes mellitus with manifestations (HCC) Expected: 05/30/2023, Expires: 07/30/2023 [facility] Work Phone: Comment on above: Expected: 05/30/2023, Expires: 4 Start: 05-30-2023 End: 07-30-2023 LIPID PANEL, NONFASTING LIPID PANEL, NONFASTING Lab Routine Type II diabetes mellitus with manifestations (HCC) Expected: 05/30/2023, Expires: 07/30/2023 [facility] Work Phone: Comment on above: Expected: 05/30/2023, Expires: Start: 05-22-2023 Hemoglobin A1c measurement HbA1C [facility] Start: 05-22-2023 Hemoglobin A1c/Hemoglobin.total in Blood HbA1C [facility] Start: 05-20-2023 Colonoscopy w/biopsy single/multiple COLONOSCOPY AND BIOPSY [facility] Start: 05-20-2023 Colsc flx w/rmvl of tumor polyp lesion snare tq COLONOSCOPY W/LESION REMOVAL [facility] Start: 05-20-2023 Colsc flx with directed submucosal njx any sbst COLONOSCOPY SUBMUCOUS NJX [facility] Start: 05-20-2023 Patient discharge [facility] Start: 04-29-2023 Advance Directive Discussion Advance Directive Discussion [facility] Start: 04-29-2023 Behavioral Health Screening Behavioral Health Screening [facility] Start: 04-29-2023 Depression Assessment Depression Assessment [facility] Start: 04-09-2023 End: 04-09-2023 Patient encounter procedure 04/09/2023 11:00 AM EST Office Visit [facility] Thor[facility] Surgery [address] [place] [phone] Phoenix Walsh, [employer] [address] [place] [address] [facility] Start: 03-19-2023 End: 03-19-2023 Patient encounter procedure 03/19/2023 10:30 AM EST Office Visit [facility] [address] [place] [phone] Phoenix Walsh, [employer]P [address] [place] [address] [facility] Start: 03-13-2023 Hemoglobin A1c/Hemoglobin.total in Blood HBA1C [facility] Start: 03-06-2023 3 comp foot exam completed DIABETIC FOOT EXAM [facility] Start: 03-06-2023 ANNUAL PCP TEAM CHRONIC DISEASE VISIT ANNUAL PCP TEAM CHRONIC DISEASE VISIT [facility] Start: 03-06-2023 COVID-19 VACCINE (4 - Booster for Moderna series) COVID-19 VACCINE (4 - Booster for Moderna series) [facility] Comment on above: Postponed from 07/04/2021 (Declined at t his time) Start: 03-06-2023 COVID-19 VACCINE (4 - Moderna series) COVID-19 VACCINE (4 - Moderna series) [facility] Comment on above: Postponed from 07/04/2021 (Declined at t his time) Start: 03-06-2023 Diabetic foot examination Diabetic Foot Exam [facility] Start: 02-28-2023 End: 02-28-2023 Admission to same day surgery center 02/28/2023 7:00 AM EDT - 02/28/2023 12:00 PM EDT Surgery [facility] MAIN OR [address] [place] [id number] Eduar Rodríguez MD [address] [place] [address], [address] [place], [place] [id number] TISSUE AORTIC VALVE REPLACEMENT, CORONARY ARTERY BYPASS GRAFT, TRANSESOPHAGEAL ECHOCARDIOGRAM [[id number] (CPT )] [facility] MAIN OR Comment on above: TISSUE AORTIC VALVE REPLACEMENT, CORONAR Y ARTERY BYPASS GRAFT, TRANSESOPHAGEAL ECHOCARDIOGRAM [[id number] (CPT )] Start: 02-28-2023 End: 02-28-2023 Anesthesia consultation 02/28/2023 7:00 AM EDT Anesthesia Event [facility] MA[facility] OR [address] [place] [address] Caroline Rogers, [employer] [address] [place] [address] [facility] MAIN OR Start: 02-28-2023 End: 02-28-2023 Cabg w/arterial graft three arterial grafts CABG X3 ARTERIAL GRAFTS Nonrheumatic aortic (valve) stenosis Atherosclerotic heart disease of [place] coronary artery without angina pectoris 02/28/2023 7:00 AM EDT [facility] Operating Room Start: 02-28-2023 End: 02-28-2023 Echo transesophag r-t 2d w/prb img acquisj i&r Echocardiography transesophageal real-time Nonrheumatic aortic (valve) stenosis Atherosclerotic heart disease of [place] coronary artery without angina pectoris 02/28/2023 7:00 AM EDT [facility] Operating Room Start: 02-28-2023 End: 02-28-2023 Rplcmt prost aortic valve open xcp homogrf/stent REPLACEMENT OF AORTIC VALVE Nonrheumatic aortic (valve) stenosis Atherosclerotic heart disease of [place] coronary artery without angina pectoris 02/28/2023 7:00 AM EDT [facility] Operating Room Start: 02-28-2023 Subsequent hospital visit by physician 02/28/2023 7:00 AM EDT Hospital Encounter [facility] MA[facility] OR [address] [facility] [place] [address] Eduar Rodríguez MD [address] [place] [address], [address] [place] [address] [facility] MAIN OR Start: 02-27-2023 Hepatitis B screening URINE ALBUMIN:CREATININE RATIO [facility] Start: 02-27-2023 Hepatitis B surface antibody level LDL CHOLESTEROL [facility] Start: 02-13-2023 Patient referral [facility] Work Phone: Start: 02-13-2023 Patient discharge [facility] Start: 01-22-2023 End: 03-24-2023 Comprehensive metabolic 2000 panel - Serum or Plasma COMP METABOLIC PANEL Lab STAT Monoclonal gammopathy Anemia, unspecified type Expected: 01/22/2023, Expires: 03/24/2023 [facility] Work Phone: Comment on above: Expected: 01/22/2023, Expires: 3 Start: 12-28-2022 Covid-19 Vaccine () Covid-19 Vaccine () [facility] Start: 12-28-2022 Influenza vaccination [facility] Start: 12-21-2022 Glaucoma screening Dilated Retinal Exam [facility] Start: 12-21-2022 Hepatitis C antibody, confirmatory test DILATED RETINAL EXAM [facility] Start: 12-18-2022 End: 02-17-2023 [facility]ND [facility] Work Phone: Comment on above: Expected: 12/18/2022, Expires: 3 Start: 12-18-2022 End: 02-17-2023 PROTEIN ELECTROPHORESIS SERUM [facility] Work Phone: Comment on above: Expected: 12/18/2022, Expires: 3 Start: 12-15-2022 ANNUAL PCP TEAM CHRONIC DISEASE VISIT ANNUAL PCP TEAM CHRONIC DISEASE VISIT [facility] Start: 12-15-2022 BP CONTROLLED (<130/80) BP CONTROLLED (<130/80) [facility] Start: 12-12-2022 End: 02-11-2023 ALBUMIN/CREAT RATIO RND UR ALBUMIN/CREAT RATIO RND UR Lab Routine Diabetes mellitus type 2 with neurological manifestations (HCC) Expected: 12/12/2022, Expires: 02/11/2023 [facility] Work Phone: Comment on above: Expected: 12/12/2022, Expires: Start: 12-12-2022 End: 02-11-2023 CBC panel - Blood by Automated count CBC Lab Routine Primary hypertension Expected: 12/12/2022, Expires: 02/11/2023 [facility] Work Phone: Comment on above: Expected: 12/12/2022, Expires: Start: 12-12-2022 End: 02-11-2023 Comprehensive metabolic 2000 panel - Serum or Plasma COMP METABOLIC PANEL Lab Routine Hyperlipidemia, unspecified hyperlipidemia type Expected: 12/12/2022, Expires: 02/11/2023 [facility] Work Phone: Comment on above: Expected: 12/12/2022, Expires: Start: 12-12-2022 End: 02-11-2023 Hemoglobin A1c in Blood HGB A1C Lab Routine Diabetes mellitus type 2 with neurological manifestations (HCC) Expected: 12/12/2022, Expires: 02/11/2023 [facility] Work Phone: Comment on above: Expected: 12/12/2022, Expires: Start: 12-12-2022 End: 02-11-2023 Lipid 1996 panel - Serum or Plasma LIPID PANEL BASIC Lab Routine Hyperlipidemia, unspecified hyperlipidemia type Expected: 12/12/2022, Expires: 02/11/2023 [facility] Work Phone: Comment on above: Expected: 12/12/2022, Expires: 3 Start: 12-07-2022 Hepatitis B surface antibody level LDL CHOLESTEROL [facility] Start: 12-06-2022 Hemoglobin A1c/Hemoglobin.total in Blood HBA1C [facility] Start: 10-26-2022 Influenza vaccination INFLUENZA (#1) [facility] Comment on above: Postponed from 12/28/2021 (Declined at t his time) Start: 10-09-2022 End: 12-09-2022 Cobalamin (Vitamin B12) [Mass/volume] in Serum or Plasma VITAMIN B12 BLOOD Lab Routine Anemia, unspecified type Expected: 10/09/2022, Expires: 12/09/2022 [facility] Work Phone: Comment on above: Expected: 10/09/2022, Expires: 3 Start: 10-09-2022 End: 12-09-2022 Ferritin [Mass/volume] in Serum or Plasma FERRITIN BLD Lab Routine Anemia, unspecified type Expected: 10/09/2022, Expires: 12/09/2022 [facility] Work Phone: Comment on above: Expected: 10/09/2022, Expires: 3 Start: 10-09-2022 End: 12-09-2022 Folate [Mass/volume] in Serum or Plasma FOLATE SERUM Lab Routine Anemia, unspecified type Expected: 10/09/2022, Expires: 12/09/2022 [facility] Work Phone: Comment on above: Expected: 10/09/2022, Expires: Start: 10-09-2022 End: 12-09-2022 Hemoglobin.gastrointest inal.lower [Presence] in Stool by Immunoassay FECAL OCCULT BLOOD TEST Lab Routine Anemia, unspecified type Expected: 10/09/2022, Expires: 12/09/2022 [facility] Work Phone: Comment on above: Expected: 10/09/2022, Expires: 3 Start: 10-09-2022 End: 12-09-2022 Iron and Iron binding capacity panel - Serum or Plasma IRON + TIBC Lab Routine Anemia, unspecified type Expected: 10/09/2022, Expires: 12/09/2022 [facility] Work Phone: Comment on above: Expected: 10/09/2022, Expires: 3 Start: 09-12-2022 ANNUAL PCP TEAM CHRONIC DISEASE VISIT ANNUAL PCP TEAM CHRONIC DISEASE VISIT [facility] Start: 09-12-2022 BP CONTROLLED (<130/80) BP CONTROLLED (<130/80) [facility] Start: 08-27-2022 Hemoglobin A1c/Hemoglobin.total in Blood HBA1C [facility] Start: 06-15-2022 ANNUAL PCP TEAM CHRONIC DISEASE VISIT ANNUAL PCP TEAM CHRONIC DISEASE VISIT [facility] Start: 06-15-2022 BP CONTROLLED (<130/80) BP CONTROLLED (<130/80) [facility] in Start: 06-09-2022 Hemoglobin A1c/Hemoglobin.total in Blood HBA1C [facility] Start: 04-29-2022 ADVANCE DIRECTIVE DISCUSSION ADVANCE DIRECTIVE DISCUSSION [facility] Start: 04-29-2022 DEPRESSION ASSESSMENT DEPRESSION ASSESSMENT [facility] Start: 04-28-2022 DEPRESSION ASSESSMENT DEPRESSION ASSESSMENT [facility] Comment on above: Postponed from 04/29/2021 (Declined at t his time) Start: 03-17-2022 End: 05-17-2022 ALBUMIN/CREAT RATIO RND UR ALBUMIN/CREAT RATIO RND UR Lab Routine Diabetes mellitus type 2 with neurological manifestations (HCC) Expected: 03/17/2022, Expires: 05/17/2022 [facility] Work Phone: Comment on above: Expected: 03/17/2022, Expires: 3 Start: 03-17-2022 End: 05-17-2022 Basic metabolic 2000 panel - Serum or Plasma BASIC METABOLIC PNL Lab Routine Diabetes mellitus type 2 with neurological manifestations (HCC) Expected: 03/17/2022, Expires: 05/17/2022 [facility] Work Phone: Comment on above: Expected: 03/17/2022, Expires: 3 Start: 03-17-2022 End: 05-17-2022 Cholesterol in LDL [Mass/volume] in Serum or Plasma LDL CHOLESTEROL DIR Lab Routine Hyperlipidemia, unspecified hyperlipidemia type Expected: 03/17/2022, Expires: 05/17/2022 [facility] Work Phone: Comment on above: Expected: 03/17/2022, Expires: 3 Start: 03-17-2022 End: 05-17-2022 Hemoglobin A1c in Blood HGB A1C Lab Routine Diabetes mellitus type 2 with neurological manifestations (HCC) Expected: 03/17/2022, Expires: 05/17/2022 [facility] Work Phone: Comment on above: Expected: 03/17/2022, Expires: 3 Start: 03-16-2022 3 comp foot exam completed DIABETIC FOOT EXAM [facility] Start: 03-09-2022 Hepatitis B screening URINE ALBUMIN:CREATININE RATIO [facility] Start: 03-09-2022 Hepatitis B surface antibody level LDL CHOLESTEROL [facility] Start: 12-28-2021 Influenza vaccination [facility] Start: 12-27-2021 Hepatitis C antibody, confirmatory test DILATED RETINAL EXAM [facility] Start: 12-08-2021 Hemoglobin A1c/Hemoglobin.total in Blood HBA1C [facility] Start: 09-14-2021 Adult depression screening assessment DEPRESSION SCREENING [facility] Start: 09-06-2021 COVID-19 VACCINE (4 - Booster for Moderna series) COVID-19 VACCINE (4 - Booster for Moderna series) [facility] Start: 09-06-2021 Hemoglobin A1c/Hemoglobin.total in Blood HBA1C [facility] Start: 07-04-2021 COVID-19 Vaccine (4 - Mixed Product risk series) COVID-19 Vaccine (4 - Mixed Product risk series) [facility] Start: 04-29-2021 ADVANCE DIRECTIVE DISCUSSION ADVANCE DIRECTIVE DISCUSSION [facility] Start: 2005 Hepatitis B Vaccines (1 of 3 - Risk 3-dose series) Hepatitis B Vaccines (1 of 3 - Risk 3-dose series) [facility] Start: 2005 RSV Immunization aged 60 or older (1 - 1-dose 60+ series) RSV Immunization aged 60 or older (1 - 1-dose 60+ series) [facility] Start: 2005 RSV Vaccine (1 - 1-dose 60+ series) RSV Vaccine (1 - 1-dose 60+ series) [facility] Start: 01-26-1964 HEPATITIS B (1 of 3 - Risk 3-dose series) HEPATITIS B (1 of 3 - Risk 3-dose series) [facility] Start: 01-26-1964 Zoster Vaccines (1 of 2) Zoster Vaccines (1 of 2) [facility] Start: 1963 BP CONTROLLED (<130/80) [facility] CONTROLLED (<130/80) [facility] Start: 1963 Hepatitis C screening Hepatitis C Screening [facility] Start: 1963 MMR (1 of 2 - Risk 2-dose series) MMR (1 of 2 - Risk 2-dose series) [facility] Start: 1957 Depression Screening Depression Screening [facility] Start: 1955 MENINGOCOCCAL B: Consider based on risk (1 of 4 - Increased Risk Bexsero 2-dose series) MENINGOCOCCAL B: Consider based on risk (1 of 4 - Increased Risk Bexsero 2-dose series) [facility] Start: 1951 Pneumococcal Vaccine: 65+ Years (1 - PCV) Pneumococcal Vaccine: 65+ Years (1 - PCV) [facility] Start: 1951 Pneumococcal Vaccine: 65+ Years (1 of 2 - PCV) Pneumococcal Vaccine: 65+ Years (1 of 2 - PCV) [facility] Start: 1951 PNEUMOCOCCAL: 65+ (1 - PCV) PNEUMOCOCCAL: 65+ (1 - PCV) [facility] Start: 1946 HEPATITIS A (1 of 2 - Risk 2-dose series) HEPATITIS A (1 of 2 - Risk 2-dose series) [facility] Start: 1945 Thyroid stimulating hormone measurement TSH Level [facility] C reactive protein [Mass/volume] in Serum or Plasma [facility] C reactive protein [Mass/volume] in Serum or Plasma [facility] C reactive protein [Mass/volume] in Serum or Plasma [facility] CBC W Auto Different ial panel - Blood [facility] CBC W Auto Different ial panel - Blood [facility] CBC W Auto Different ial panel - Blood [facility] Comprehensive metabo lic 2000 panel - Serum or Plasma [facility] End: 02-06-2024 Ct abdomen & pelvis w/contrast material CT ABD/PEL W IVCON Radiology Routine Monoclonal gammopathy 1 Occurrences starting 01/07/2023 until 02/06/2024 [facility] Work Phone: Comment on above: 1 Occurrences starting 01/07/2023 until 02/06/2024 End: 02-06-2024 CT CHEST W IVCON CT CHEST W IVCON Radiology Routine Monoclonal gammopathy 1 Occurrences starting 01/07/2023 until 02/06/2024 [facility] Work Phone: Comment on above: 1 Occurrences starting 01/07/2023 until 02/06/2024 End: 03-01-2023 ECG 12 lead ECG 12 lead CV ECG STAT Once for 1 Occurrences starting 03/01/2023 until 03/01/2023 [facility] Comment on above: Once for 1 Occurrences starting 03/01/20 until 03/01/2023 Erythrocyte sedimentation rate [facility] Erythrocyte sedimentation rate [facility] Erythrocyte sedimentation rate [facility] Ferritin [Mass/volum e] in Serum or Plasma [facility] Ferritin [Mass/volum e] in Serum or Plasma [facility] Folate [Moles/volume ] in Serum or Plasma [facility] Immunoglobulin measurement [facility] Immunoglobulin measurement [facility] Iron and Iron bindin g capacity panel - Serum or Plasma [facility] Iron and Iron bindin g capacity panel - Serum or Plasma [facility] Lactate dehydrogenas e measurement [facility] Lactoferrin [Presenc e] in Stool by Immunoassay [facility] Measurement of occul t blood in stool specimen using immunoassay [facility] Patient Education [facility] Work Phone: Patient referral [facility] Work Phone: PET CT of whole body [facility] Protein measurement [facility] End: 02-28-2023 Prothrombin time (PT) in Blood by Coagulation assay Protime-INR Lab Routine Once (Lab) for 1 Occurrences starting 02/28/2023 until 02/28/2023 [facility] Work Phone: Comment on above: Once (Lab) for 1 Occurrences starting until 02/28/2023 Reticulocyte count [facility] Serum immunofixation [facility] Serum immunofixation [facility] Tissue exam [facility] Work Phone: Comment on above: Release Upon Ordering for 1 Occurrences starting 02/28/2023, 1 completed [facility] End: 01-17-2024 US KIDNEY/BLADDER US KIDNEY/BLADDER Radiology Routine Other proteinuria 1 Occurrences starting 12/18/2022 until 01/17/2024 [facility] Work Phone: Comment on above: 1 Occurrences starting 12/18/2022 until 01/17/2024 Viscosity of Serum [facility] Viscosity of Serum [facility] Vitamin B12 measurement [facility] Immunizations Immunization Date Immunization Notes Care Provider Fa cility 06-15-2021 tetanus toxoid, redu allyssa diphtheria toxoid, and acellular pertussis vaccine, adsorbed Felix Bill MD Work Phone: [facility] Work Phone: 09-01-2020 COVID-19 vaccine, fu ll dose (MODERNA) Felix Bill MD Work Phone: [facility] Work Phone: 08-04-2020 COVID-19 vaccine, fu ll dose (MODERNA) Felix Bill MD Work Phone: [facility] Work Phone: 01-28-2018 influenza virus vaccine, unspecified formulation Lise Richter APRN.CAMPUS REP Work Phone: [facility] Payers Date Payer Category Payer Self-pay [id number] 2021 Medicare AETNA MEDICARE A ETNA MEDICARE PPO [id number] 2021-Present [phone] [address] [place] [address] O [id number] 2021 Medicare [id number] 2021 Medicare (Managed Care) AETNA ME MEZA [id number] 2021 Private Health Insurance AETNA A ETNA PPO [id number] 2021-Present [id number] [place] [address] Commercial [id number] 2021 Private Health Insurance [facility] [id number] 2020 Medicare AETNA MEDICARE A ETNA MEDICARE PPO [id number] 2020-2021 [address] [place] [address] PPO [id number] Private Health Insurance AETNA/S CHOOL EMP DETENTION [id number] Private Health Insurance AETNA [facility] [id number] Unknown [id number] Unknown [id number] Unknown [id number] Unknown [id number] Unknown [id number] Unknown [id number] 462 Unknown [id number] Unknown [id number] 462 Unknown [id number] 462 Unknown [id number] 462 Unknown [id number] Social History Date Type Detail Facility Start: 01-15-2011 End: 07-16-2023 Tobacco smoking status NHIS Ex-smoker [facility] Start: 04-29-1962 End: 04-29-1989 History of tobacco use Current smoker [facility] Start: 04-29-1982 End: 04-29-1989 History of tobacco use Pipe Smoker [facility] Start: 01-15-2011 End: 12-28-2022 Tobacco use and exposure User of smokeless tobacco [facility] History of tobacco use Chews Tobacco [facility] Start: 06-15-2021 End: 08-27-2022 Alcohol intake Lifetime non-drinker (finding) [facility] Start: 06-08-2019 History SDOH Alcohol Frequency 1 [facility] Start: 01-28-2018 End: 12-15-2021 Tobacco Comment 20 years cigs till 1979, pipe till [facility] Start: 1945 Sex Assigned At Not on file [facility] Start: 09-02-2021 End: 03-06-2022 Exposure to SARS-CoV-2 (event) Not sure [facility] Work Phone: Start: 06-14-2022 End: 07-16-2023 Tobacco smoking status UTIS Unknown if ever smoked [facility] Start: 1945 Sex Assigned At Male [facility] Start: 09-12-2022 End: 10-12-2022 History of Social function [facility] Start: 09-12-2022 End: 10-12-2022 Tobacco use panel [facility] National Score (1-10 0), lower number is lower risk 53 [facility] Work Phone: How often to you hav e a drink containing alcohol? Never [facility] Start: 04-29-1962 End: 04-29-1982 History of tobacco use Cigarette Smoker [facility] Start: 02-19-2023 End: 10-21-2024 Alcohol intake Ex-drinker (finding) [facility] Start: 02-19-2023 Tobacco Comment snuff [facility] Start: 02-18-2023 Gender identity Identifies as male gender (finding) [facility] Start: 02-18-2023 Sexual orientation Heterosexual (fin ding) [facility] Medical Equipment Procedure Code Equipment Code Equipment Origin al Text Equipment Identifier Dates [id number], [id number], [id number], [id number], [id number], [id number], [id number] Start: 05-13-2020 End: 08-27-2024 Comment on above: TEST BLOOD SUGAR 2 T IMES PER DAY. DX: E11.40. INSULIN DEP: Yes Use one needle for e ach dose LANCETS FOR GLUCOSE METER. TEST 2 TIMES DAILY. E11.40 TEST BLOOD SUGAR 3 T IMES PER DAY. DX: E11.40. INSULIN DEP: Yes LANCETS FOR GLUCOSE METER. TEST 4 TIMES DAILY. E11.40 Test blood sugar(s) 4 times daily. Dx: Other DM Code E11.49 Insulin: Yes Uses one needle for each dose USES 4 per day with insulin injections. Pen Needle, Diab etic (Comfort Ez Pen [place]) 32 gauge x 5/32 needle Start: 06-02-2018 Pen Needle, Diab etic (Comfort Ez Pen [place]) 32 gauge x 5/32 needle Start: 08-29-2017 End: 08-29-2017 Pen Needle, Diab etic (Comfort Ez Pen [place]) 32 gauge x 5/32 needle Start: 08-29-2017 End: 08-29-2017 Pen Needle, Diab etic (Comfort Ez Pen [place]) 32 gauge x 5/32 needle Start: 08-29-2017 End: 06-02-2018 Pen Needle, Diab etic (Comfort Ez Pen [place]) 32 gauge x 5/32 needle Start: 06-02-2018 End: 06-02-2018 Pen Needle, Diab etic (Comfort Ez Pen [place]) 32 gauge x 5/32 needle Start: 06-02-2018 Pen Needle, Diab etic (Comfort Ez Pen [place]) 32 gauge x 5/32 needle Start: 08-29-2017 End: 08-29-2017 Pen Needle, Diab etic (Comfort Ez Pen [place]) 32 gauge x 5/32 needle Start: 08-29-2017 End: 08-29-2017 Pen Needle, Diab etic (Comfort Ez Pen [place]) 32 gauge x 5/32 needle Start: 08-29-2017 End: 06-02-2018 Pen Needle, Diab etic (Comfort Ez Pen [place]) 32 gauge x 5/32 needle Start: 06-02-2018 End: 06-02-2018 Pen Needle, Diab etic (Comfort Ez Pen [place]) 32 gauge x 5/32 needle Start: 06-02-2018 Pen Needle, Diab etic (Comfort Ez Pen [place]) 32 gauge x 5/32 needle Start: 08-29-2017 End: 08-29-2017 Pen Needle, Diab etic (Comfort Ez Pen [place]) 32 gauge x 5/32 needle Start: 08-29-2017 End: 08-29-2017 Pen Needle, Diab etic (Comfort Ez Pen [place]) 32 gauge x 5/32 needle Start: 08-29-2017 End: 06-02-2018 Pen Needle, Diab etic (Comfort Ez Pen [place]) 32 gauge x 5/32 needle Start: 06-02-2018 End: 06-02-2018 Pen Needle, Diab etic (Comfort Ez Pen [place]) 32 gauge x 5/32 needle Start: 06-02-2018 Pen Needle, Diab etic (Comfort Ez Pen [place]) 32 gauge x 5/32 needle Start: 08-29-2017 End: 08-29-2017 Pen Needle, Diab etic (Comfort Ez Pen [place]) 32 gauge x 5/32 needle Start: 08-29-2017 End: 08-29-2017 Pen Needle, Diab etic (Comfort Ez Pen [place]) 32 gauge x 5/32 needle Start: 08-29-2017 End: 06-02-2018 Pen Needle, Diab etic (Comfort Ez Pen [place]) 32 gauge x 5/32 needle Start: 06-02-2018 End: 06-02-2018 Yovana ds [facility] E[facility] Pericardial Bioprosthesis [id number] Start: 02-28-2023 Pen Needle, Diab etic (Comfort Ez Pen [place]) 32 gauge x 5/32 needle Start: 06-02-2018 Pen Needle, Diab etic (Comfort Ez Pen [place]) 32 gauge x 5/32 needle Start: 08-29-2017 End: 08-29-2017 Pen Needle, Diab etic (Comfort Ez Pen [place]) 32 gauge x 5/32 needle Start: 08-29-2017 End: 08-29-2017 Pen Needle, Diab etic (Comfort Ez Pen [place]) 32 gauge x 5/32 needle Start: 08-29-2017 End: 06-02-2018 Pen Needle, Diab etic (Comfort Ez Pen [place]) 32 gauge x 5/32 needle Start: 06-02-2018 End: 06-02-2018 Pen Needle, Diab etic (Comfort Ez Pen [place]) 32 gauge x 5/32 needle Start: 06-02-2018 Pen Needle, Diab etic (Comfort Ez Pen [place]) 32 gauge x 5/32 needle Start: 08-29-2017 End: 08-29-2017 Pen Needle, Diab etic (Comfort Ez Pen [place]) 32 gauge x 5/32 needle Start: 08-29-2017 End: 08-29-2017 Pen Needle, Diab etic (Comfort Ez Pen [place]) 32 gauge x 5/32 needle Start: 08-29-2017 End: 06-02-2018 Pen Needle, Diab etic (Comfort Ez Pen [place]) 32 gauge x 5/32 needle Start: 06-02-2018 End: 06-02-2018 Pen Needle, Diab etic (Comfort Ez Pen [place]) 32 gauge x 5/32 needle Start: 06-02-2018 Pen Needle, Diab etic (Comfort Ez Pen [place]) 32 gauge x 5/32 needle Start: 08-29-2017 End: 08-29-2017 Pen Needle, Diab etic (Comfort Ez Pen [place]) 32 gauge x 5/32 needle Start: 08-29-2017 End: 08-29-2017 Pen Needle, Diab etic (Comfort Ez Pen [place]) 32 gauge x 5/32 needle Start: 08-29-2017 End: 06-02-2018 Pen Needle, Diab etic (Comfort Ez Pen [place]) 32 gauge x 5/32 needle Start: 06-02-2018 End: 06-02-2018 Pen Needle, Diab etic (Comfort Ez Pen [place]) 32 gauge x 5/32 needle Start: 06-02-2018 Pen Needle, Diab etic (Comfort Ez Pen [place]) 32 gauge x 5/32 needle Start: 08-29-2017 End: 08-29-2017 Pen Needle, Diab etic (Comfort Ez Pen [place]) 32 gauge x 5/32 needle Start: 08-29-2017 End: 08-29-2017 Pen Needle, Diab etic (Comfort Ez Pen [place]) 32 gauge x 5/32 needle Start: 08-29-2017 End: 06-02-2018 Pen Needle, Diab etic (Comfort Ez Pen [place]) 32 gauge x 5/32 needle Start: 06-02-2018 End: 06-02-2018 Pen Needle, Diab etic (Comfort Ez Pen [place]) 32 gauge x 5/32 needle Start: 06-02-2018 Pen Needle, Diab etic (Comfort Ez Pen [place]) 32 gauge x 5/32 needle Start: 08-29-2017 End: 08-29-2017 Pen Needle, Diab etic (Comfort Ez Pen [place]) 32 gauge x 5/32 needle Start: 08-29-2017 End: 08-29-2017 Pen Needle, Diab etic (Comfort Ez Pen [place]) 32 gauge x 5/32 needle Start: 08-29-2017 End: 06-02-2018 Pen Needle, Diab etic (Comfort Ez Pen [place]) 32 gauge x 5/32 needle Start: 06-02-2018 End: 06-02-2018 Pen Needle, Diab etic (Comfort Ez Pen [place]) 32 gauge x 5/32 needle Start: 06-02-2018 Pen Needle, Diab etic (Comfort Ez Pen [place]) 32 gauge x 5/32 needle Start: 08-29-2017 End: 08-29-2017 Pen Needle, Diab etic (Comfort Ez Pen [place]) 32 gauge x 5/32 needle Start: 08-29-2017 End: 08-29-2017 Pen Needle, Diab etic (Comfort Ez Pen [place]) 32 gauge x 5/32 needle Start: 08-29-2017 End: 06-02-2018 Pen Needle, Diab etic (Comfort Ez Pen [place]) 32 gauge x 5/32 needle Start: 06-02-2018 End: 06-02-2018 Pen Needle, Diab etic (Comfort Ez Pen [place]) 32 gauge x 5/32 needle Start: 06-02-2018 Pen Needle, Diab etic (Comfort Ez Pen [place]) 32 gauge x 5/32 needle Start: 08-29-2017 End: 08-29-2017 Pen Needle, Diab etic (Comfort Ez Pen [place]) 32 gauge x 5/32 needle Start: 08-29-2017 End: 08-29-2017 Pen Needle, Diab etic (Comfort Ez Pen [place]) 32 gauge x 5/32 needle Start: 08-29-2017 End: 06-02-2018 Pen Needle, Diab etic (Comfort Ez Pen [place]) 32 gauge x 5/32 needle Start: 06-02-2018 End: 06-02-2018 Pen Needle, Diab etic (Comfort Ez Pen [place]) 32 gauge x 5/32 needle Start: 06-02-2018 Pen Needle, Diab etic (Comfort Ez Pen [place]) 32 gauge x 5/32 needle Start: 08-29-2017 End: 08-29-2017 Pen Needle, Diab etic (Comfort Ez Pen [place]) 32 gauge x 5/32 needle Start: 08-29-2017 End: 08-29-2017 Pen Needle, Diab etic (Comfort Ez Pen [place]) 32 gauge x 5/32 needle Start: 08-29-2017 End: 06-02-2018 Pen Needle, Diab etic (Comfort Ez Pen [place]) 32 gauge x 5/32 needle Start: 06-02-2018 End: 06-02-2018 Goals Date Patient Goal Desired Activity /State Functional Status Date Assessment Result Facility 05-01-2016 Are you deaf, or do you have serious difficulty hearing No 05/01/2016 7:50 AM Melany Ohara, BOTTLER HELPER.CAMPUS REP No [facility] 05-01-2016 Are you blind, or do you have serious difficulty seeing, even when wearing glasses No 05/01/2016 7:50 AM Melany Ohara, BOTTLER HELPER.CAMPUS REP No [facility] 05-01-2016 Do you have serious difficulty walking or climbing stairs No 05/01/2016 7:50 AM Melany Ohara, BOTTLER HELPER.CAMPUS REP No [facility] 05-01-2016 Do you have difficul ty dressing or bathing No 05/01/2016 7:50 AM Melany Ohara, BOTTLER HELPER.CAMPUS REP [facility] 05-01-2016 Because of a physica l, mental, or emotional condition, do you have difficulty doing errands alone such as visiting a physician's office or shopping No 05/01/2016 7:50 AM Melany Ohara APRN.CAMPUS REP No [facility] Mental Status Date Assessment Result Facility 09-03-2023 Cognitive function Voice/Name [facility] Work Phone: 07-31-2023 Cognitive function Awake;Alert;A ppropriate; Follows Commands [facility] Work Phone: 07-24-2023 Cognitive function Arousable To Voice/Nam e [facility] Work Phone: 05-20-2023 Cognitive function Voice/Name [place] [facility] Work Phone: 05-01-2016 Because of a physica l, mental, or emotional condition, do you have serious difficulty concentrating, remembering, or making decisions No 05/01/2016 7:50 AM Melany Ohara APRN.CAMPUS REP No [facility] Clinical Notes 10-21-2015 to 12-01-2024 Note Date & Type Note Facility 12-01-2024 Note HNO ID: [id number] Author: FELIX BILL MD Service: ? Author Type: Physician Type: Progress Notes Filed: 12/01/2024 11:15 Note Text: Kevin Kay is a 79 year old male. John was doing well. His diabetes mellitus, hypertension, and lipids were controlled. [place]'s macroglobulinemia and iron deficiency anemia responded to treatments by hematology last year, and was currently on surveillance. His IBD was well controlled, and CAD was stable. ACTIVE PROBLEM LIST Ulcerative Colitis (Hcc) Personal History of Tobacco Use, Presenting Hazards to Health Iron Deficiency Anemia Due to Chronic Blood Loss Personal history of colonic polyps Mitral Regurgitation Hypertension Hyperlipidemia Primary Osteoarthritis of Right Knee Type 2 Diabetes Mellitus With Peripheral Neuropathy (Hcc) Other Proteinuria Hypoalbuminemia Coronary Artery Disease Involving [place] Coronary Artery of [place] Heart Without Angina Pectoris [place] Macroglobulinemia (Hcc) Aortic Valve Replaced S/P Cabg X 2 PAST SURGICAL HISTORY Procedure Laterality Date CABG (2) VEIN GRAFTS AND ARTERIAL GRAFT(S 02/28/2023 COLONOSCOPY FLX DX W/COLLJ SPEC WHEN PFRMD 03/11/1995 Colonoscopy COLONOSCOPY FLX DX W/COLLJ SPEC WHEN PFRMD 07/12/2008 Colonoscopy COLONOSCOPY FLX DX W/COLLJ SPEC WHEN PFRMD 05/16/2015 Colonoscopy COLONOSCOPY FLX DX W/COLLJ SPEC WHEN PFRMD 06/08/2019 Colonoscopy COLONOSCOPY W/BIOPSY SINGLE/MULTIPLE 02/28/2006 LEFT HEART CATH,PERCUTANEOUS 02/13/2023 NEUROPLASTY AND/TRANSPOS MEDIAN NRV CARPAL TUNNE 1992 Carpal tunnel decomp, bilateral REPL AORTIC VALVE W/BYP 02/28/2023 Edward Magna Bioprosthetic SIGMOIDOSCOPY FLX DX W/COLLJ SPEC BR/WA IF PFRMD 04/08/2009 SIGMOIDOSCOPY FLX DX W/COLLJ SPEC BR/WA IF PFRMD 06/23/2015 Sigmoidoscopy, flexible Social History Tobacco Use Smoking status: Former Types: Pipe, Cigarettes Smokeless tobacco: Current Types: Chew Tobacco comments: 20 years cigs till 1979, pipe till Vaping Use Vaping status: Never Used Substance Use Topics Alcohol use: Not Currently Drug use: Never Current Outpatient Medications Medication Sig insulin glargine (LANTUS SOLOSTAR U-100 INSULIN) 100 unit/mL (3 mL) Inject 12 Units subcutaneously daily at bedtime. insulin lispro (HUMALOG KWIKPEN INSULIN) 100 unit/mL Inject 4 units with meals PLUS sliding scale #1 (1 unit for every 50 over 150 PRE MEAL blood sugar) ~20 units daily Blood-Glucose Sensor (Solexel G7 SENSOR) rick CHANGE sensor every 10 days. USE FOR CONTINUOUS GLUCOSE MONITORING. INSULIN USE E11.9 Insulin [place], Disposable, (BD ULTRA-FINE VY PEN NEEDLE) 32 gauge x 5/32 USES 4 per day with insulin injections. ibuprofen (MOTRIN) 800 mg tablet Take 1 tablet by mouth every 8 hours as needed for pain. ramipril (ALTACE) 5 mg capsule Take 1 capsule by mouth once daily. FARXIGA 10 mg tablet TAKE 1 TABLET DAILY flaxseed oil (OMEGA 3 ORAL) Take 1 capsule by mouth once daily. LECITHIN ORAL Take 1 tablet by mouth once daily. acetaminophen (TYLENOL) 500 mg tablet Take 500 mg by mouth two times a day as needed for pain. aspirin, enteric coated (ASPIRIN, ENTERIC COATED) 81 mg EC tablet Take 81 mg by mouth once daily. metoprolol tartrate, short acting, (LOPRESSOR) 25 mg tablet Take 25 mg by mouth two times a day. rosuvastatin (CRESTOR) 40 mg tablet Take 40 mg by mouth once daily. OTC PRODUCT Shaklee Iron: Take two tablets by mouth once daily. Blood-Glucose Meter,Continuous (DEXCOM G7 HOME HEALTH NURSE LICENSED PRACTICAL) [facility] Dispense one lifter/driver USE FOR CONTINUOUS GLUCOSE MONITORING. INSULIN USE E11.9 lancets (ONE TOUCH DELICA) 33 gauge Test blood sugar(s) 4 times daily. Dx: Other DM Code E11.49 Insulin: Yes Mesalamine (LIALDA) 1.2 gram EC tablet Take 2 tablets by mouth once daily. Per Dr. Aguilar Friend. VITAMIN C 1,000 MG TAB Take 1,000 mg by mouth once daily. GLUCOSAMINE CHONDROITIN MAXSTR 500 MG-400 MG CAP Take 1 capsule by mouth once daily. MULTIVITAMIN TAB Take 1 tablet by mouth once daily. No current facility-administered medications for this visit. Review of Systems Constitutional: Negative for fatigue and fever. Respiratory: Negative for cough and shortness of breath. Cardiovascular: Negative for chest pain, palpitations and leg swelling. Gastrointestinal: Negative for abdominal pain, blood in stool and diarrhea. Genitourinary: Negative for difficulty urinating and dysuria. Neurological: Negative for dizziness, weakness, numbness and headaches. Objective BP 136/66 Pulse (!) 54 Temp 37.2 ?C (98.9 ?F) Resp 16 Ht 166 cm (5' 5.35) Wt 69.4 kg (153 lb) SpO2 97% BMI 25.19 kg/m? Physical Exam Constitutional: General: He is not in acute distress. Appearance: He is not ill-appearing. Eyes: General: No scleral icterus. Conjunctiva/sclera: Conjunctivae normal. Cardiovascular: Rate and Rhythm: Normal rate and regular rhythm. Heart sounds: No murmur heard. No gal (more content not included)... [facility] 12-01-2024 Note HNO ID: [id number] Author: FELIX BILL MD Service: ? Author Type: Physician Type: Progress Notes Filed: 12/01/2024 11:15 Note Text: Vidal Kay is a 79 year old male here for a Medicare wellness visit. Medicare Health Risk Assessment General Health Good Exercise: Minutes/Day 150+ min Exercise: Days/Week 7 days Alcohol: Daily Use Never Alcohol: Drinks/Day Patient does not drink Alcohol: 6 or more drinks Never Feel off balance No Concerns: Teeth/Dentures No Concerns: Sexual function No Troubled by feelings None of the above Frequency: Eating healthy diet Nearly every day ADLs requiring help None of the above Safety precautions in home/vehicle No Smoke, vape, chews tobacco Yes, and I might quit Difficulty hearing No Difficulty seeing No Current Providers Specialists: I have reviewed specialist-related care of the patient in the medical record. Current care team: Patient Care Team: Felix Bill MD as PCP - General (Internal Medicine) Lynn Vieyra, BOTTLER HELPER.CAMPUS REP as Radiation Oncology Nurse (Internal Medicine) Sonya Chase MD/Lise Richter APRN, [facility], [facility] (Endocrinology). Outside specialists seen: Marco Hurtado MD, Hematology/Oncology. Chase Baig MD, Cardiology. Mei Jimenez MD, Gastroenterology. Katerine Montanez OD, Optometry Ulisses Stover MD, Ophthalmology, Retinal specialist. Medical/Family history review Reviewed and updated problem list, medical/surgical/family/social history, medications, and allergies. Opioid use review Opioid Medications (last 90 days) No data to display Anxiety/Depression screening PHQ-2 Score: 0 (Lower risk for depression) Recommendation: no further intervention at this time Cognitive screening Mini Cog Score: 5 Cognitive screening reviewed and No further action needed (score 3-5). Functional Observation Was the patient's Timed Up AND Go test unsteady or >= 12 seconds? No Advance Care Planning Patient did not wish or was not able to name a surrogate decision maker or provide an advance care plan Measurements BP 136/66 Pulse (!) 54 Temp 37.2 ?C (98.9 ?F) Resp 16 Ht 166 cm (5' 5.35) Wt 69.4 kg (153 lb) SpO2 97% BMI 25.19 kg/m? Vision Screening: Follows with optometry/ophthalmology Assessment/Plan Medicare annual wellness visit, subsequent (Z00.00) - Counseled on healthy diet and regular exercise - Fall avoidance information provided - Personalized prevention plan provided - Smoking cessation encouraged; discussed risks to health and quitting strategies. Patient is preparing to quit [facility] 11-10-2024 Evaluation note Diagnosis Onset Date Resolution Dysplastic polyp of colon acute November 10, 2024 9:51am Positive occult stool blood test acute November 10, 2024 9:51am Ulcerative colitis chronic October 272024 9:51am Non-specific colitis noneactive November 10, 2024 9:51am Bilateral carotid artery disease acute February 02 9:20am Essential hypertension acute Oc 2024 9:20am Mixed hyperlipidemia acute Octo 2024 9:20am S/P CABG x 2 acute February 02, 2025 9:20am S/P aortic valve replacement chronic February 02 9:20am Chest pain resolved February 02, 9:20am [facility] Work Phone: [phone] 956-441907-07-2025 Telephone encounter Note* Telephone Encounter - Yary Jackson MA - 11/02/2024 3:36 PM EDT Phoned [facility] in [place] regarding needles Rx. Pharmacy reports they only carry [facility] branded needles. Pharmacy unaware the exact reasoning of patient complaint but [facility] Phoned patients to discuss needles. states the patient reports being unhappy with the quality of the [facility] needles. She purchased 2 boxes from [facility] today but is aware they can changewhat they stock prior to next refill. Yary Jackson MA [facility]07-07-2025 Miscellaneous Notes* Telephone Encounter - Yayr Jackson MA - 11/02/2024 3:36 PM EDT Phoned [facility] in [place] regarding needles Rx. Pharmacy reports they only carry [facility] branded needles. Pharmacy unaware the exact reasoning of patient complaint but transferred Rx to [facility] earlier today Phoned patients to discuss needles. states the patient reports being unhappy with the quality of the [facility] needles. She purchased 2 boxes from [facility] today but is aware they can changewhat they stock prior to next refill. Yary Jackson MA * Telephone Encounter - [place] Katerine Carreno - 11/02/2024 11:36 AM EDT Pts Lilian calling regarding pts BD needles. She is having a hard time finding a pharmacy that has these and is asking what she should do. Please call to discuss. Thank you! documented in this encounterSumma Health07-07-2025 Telephone encounter Note * Telephone Encounter - Katerine Kilgore - 11/02/2024 11:36 AM EDT Pts Lilian calling regarding pts BD needles. She is having a hard time finding a pharmacy that has these and is asking what she should do. Please call to discuss. Thank you! [facility]06-25-2025 Telephone encounter Note* Telephone Encounter - Mario Alberto Echavarria RN - 10/21/2024 10:19 AM EDT Today's endocrinology OV note faxed [place] [facility] [place]GM [place]. Fax confirmation received. Mario Alberto Echavarria RN October 21, 2024 10:21 AM [facility]06-25-2025 Miscellaneous Notes* Telephone Encounter - Mario Alberto Echavarria RN - 10/21/2024 10:19 AM EDT Today's endocrinology OV note faxed to [facility] [place]GM order. Fax confirmation received. Mario Alberto Echavarria RN October 21, 2024 10:21 AM documented in this encounterSumma Health06-25-2025 History of Present illness Narrative* Lise Richter APRN.CAMPUS REP - 10/21/2024 9:45 AM EDT Images from the original note were not included. OFFICE VISIT PROGRESS NOTE CC Vidal Kay is a 79 year old who presents today for blood sugar review, insulin dose review, adjust. HPI Diagnosed with diabetes mellitus type II, ~ ~1991 Last endocrine OV 03/25/2024 Some elements copied from my note 03/25/2024 which have been updated where appropriate, and all reflect current medical decision making from date of this visit. 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 CURRENT DM MEDS FARXIGA 10 mg 1 tab daily LANTUS 12 units daily HUMALOG 4-4-4 plus S#1 SMBG Type of Monitor: Other DEXCOM G7 Patient is compliant with CGM use and is benefiting from sensor use. 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, gazelle 15 minutes, weights//curls/shoulders DM REVIEW OF SYSTEMS Last Eye Exam : 05/2025 Last Podiatry Exam: 11/2023 Cardiorespiratory: negative, denies chest pain, pressure Claudication: no Dyslipidemia: No High Blood Pressure: No CURRENT LABS Recent Labs 02/27/22 0813 06/08/22 0809 10/12/22 1211 12/11/22 0847 12/18/22 1151 01/22/23 0801 05/23/23 1259 07/03/23 0959 03/25/24 1501 05/28/24 0812 05/28/24 1116 ALT -- < > -- 16 -- 12 27 -- -- -- -- AST -- < > -- 15 -- 13* 34 -- -- -- -- UCRR 96.7 -- -- 57.1 -- -- -- -- -- -- 48.3 UALBR 95.1 -- -- 129.7 -- -- -- -- -- -- 263.9 UALBCR 98* -- -- 227* -- -- -- -- -- -- 546* TPROT -- < > -- 8.6* 8.6* 7.7 8.5* 8.8* -- -- -- -- ALB -- < > -- 3.6* -- 3.3* 3.5* -- -- -- -- CA -- < > -- 9.7 -- 8.9 9.8 -- -- 9.9 -- TBILI -- < > -- 0.2 -- 0.2 0.3 -- -- -- -- ALKPHOS -- < > -- 109 -- 100 137* -- -- -- -- GLUC -- < > -- 109* -- 119* 212* -- -- 129* -- BUN -- < > -- 21 -- 29* 32* -- -- 34* -- CREAT -- < > -- 0.97 -- 0.77 0.79 -- -- 1.04 -- NA -- < > -- 135* -- 135* 134* -- -- 138 -- K -- < > -- 5.0 -- 4.6 4.1 -- -- 4.7 -- CHLOR -- < > -- 99 -- 101 95* -- -- 103 -- CO2 -- < > -- 24 -- 25 27 -- -- 25 -- ANION -- < > -- 12 -- 9 12 -- -- 10 -- EGFROTH -- < > -- 80 -- 92 91 -- -- 73 -- HBA1C -- < > -- 8.0* -- -- -- 7.3* 6.8* 6.8* -- B12 -- -- 734 -- -- -- 765 -- -- -- -- < > = values in this interval not displayed. Recent Labs 12/07/21 0813 02/27/22 0805 06/08/22 0809 10/12/22 1211 12/11/22 0847 05/23/23 1259 07/03/23 0959 03/25/24 1501 05/28/24 0812 TG 41 -- -- -- 47 -- -- -- 47 CHOL 161 -- -- -- 157 -- -- -- 141 HDL 74 -- -- -- 66 -- -- -- 90 VLDL 8 -- -- -- 9 -- -- -- 9 LDL 79 -- -- -- 82 -- -- -- 42 FASTTIME 13 -- -- -- 12 -- -- -- 11 TCHDL 2.18 -- -- -- 2.38 -- -- -- 1.57 LDLHDL 1.07 -- -- -- 1.24 -- -- -- 0.47 NONHDL 87 -- -- -- 91 -- -- -- 51 HBA1C 7.3* < > 7.3* -- 8.0* -- 7.3* 6.8* 6.8* HBA0 163 < > 163 -- 183 -- -- -- 148 B12 -- -- -- 734 -- 765 -- -- -- < > = values in this interval not displayed. 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 Hurtado, [facility] Oncology PAST SURGICAL HISTORY Procedure Laterality Date CABG (2) VEIN GRAFTS & ARTERIAL GRAFT(S 02/28/2023 COLONOSCOPY FLX DX W/COLLJ SPEC WHEN PFRMD 03/11/1995 Colonoscopy COLONOSCOPY FLX DX W/COLLJ SPEC WHEN PFRMD 07/12/2008 Colonoscopy COLONOSCOPY FLX DX W/COLLJ SPEC WHEN PFRMD 05/16/2015 Colonoscopy COLONOSCOPY FLX DX W/COLLJ SPEC WHEN PFRMD 06/08/2019 Colonoscopy COLONOSCOPY W/BIOPSY SINGLE/MULTIPLE 02/28/2006 LEFT HEART CATH,PERCUTANEOUS 02/13/2023 NEUROPLASTY &/TRANSPOS MEDIAN NRV CARPAL TUNNE 1992 Carpal tunnel decomp, bilateral REPL AORTIC VALVE W/BYP 02/28/2023 [place] Bioprosthetic SIGMOIDOSCOPY FLX DX W/COLLJ SPEC BR/WA IF PFRMD 04/08/2009 SIGMOIDOSCOPY FLX DX W/COLLJ SPEC BR/WA IF PFRMD 06/23/2015 Sigmoidoscopy, flexible FAMILY HISTORY Problem Relation Age of Onset Diabetes Mother 55 CAD Coronary Artery Disease Mother Diabetes Father CAD Coronary Artery Disease Father 55 CABG Breast Cancer Sister Breast Cancer Daughter Social History Tobacco Use Smoking status: Former Types: Pipe, Cigarettes Smokeless tobacco: Current Types: Chew Tobacco comments: 20 years cigs till 1979, pipe till Vaping Use Vaping status: Never Used Substance Use Topics Alcohol use: Not Currently Drug use: Never Current Outpatient Medications Medication Sig gabapentin (NEURONTIN) 100 mg capsule Take 1 capsule by mouth daily at bedtime for 30 days. Insulin [place], Disposable, (BD ULTRA-FINE VY PEN NEEDLE) 32 gauge x 5/32 USES 4 per day with insulin injections. ibuprofen (MOTRIN) 800 mg tablet Take 1 tablet by mouth every 8 hours as needed for pain. ramipril (ALTACE) 5 mg capsule Take 1 capsule by mouth once daily. insulin glargine (LANTUS SOLOSTAR U-100 INSULIN) 100 unit/mL (3 mL) Inject 12 Units subcutaneously daily at bedtime. insulin lispro (HUMALOG KWIKPEN INSULIN) 100 unit/mL Inject 4 units with meals PLUS sliding scale #1 (1 unit for every 50 over 150 PRE MEAL blood sugar) ~20 units daily FARXIGA 10 mg tablet TAKE 1 TABLET DAILY Blood-Glucose Sensor (Solexel G7 SENSOR) rick CHANGE sensor every 10 days. USE FOR CONTINUOUS GLUCOSE MONITORING. INSULIN USE E11.9 flaxseed oil (OMEGA 3 ORAL) Take 1 capsule by mouth once daily. LECITHIN ORAL Take 1 tablet by mouth once daily. acetaminophen (TYLENOL) 500 mg tablet Take 500 mg by mouth two times a day as needed for pain. aspirin, enteric coated (ASPIRIN, ENTERIC COATED) 81 mg EC tablet Take 81 mg by mouth once daily. metoprolol tartrate, short acting, (LOPRESSOR) 25 mg tablet Take 25 mg by mouth two times a day. rosuvastatin (CRESTOR) 40 mg tablet Take 40 mg by mouth once daily. OTC PRODUCT Shaklee Iron: Take two tablets by mouth once daily. Blood-Glucose Meter,Continuous (DEXCOM G7 HOME HEALTH NURSE LICENSED PRACTICAL) [facility] Dispense one lifter/driver USE FOR CONTINUOUS GLUCOSE MONITORING. INSULIN USE E11.9 lancets (ONE TOUCH DELICA) 33 gauge Test blood sugar(s) 4 times daily. Dx: Other DM Code E11.49 Insulin: Yes Mesalamine (LIALDA) 1.2 gram EC tablet Take 2 tablets by mouth once daily. Per Dr. Aguilar Friend. VITAMIN C 1,000 MG TAB Take 1,000 mg by mouth once daily. GLUCOSAMINE CHONDROITIN MAXSTR 500 MG-400 MG CAP Take 1 capsule by mouth once daily. MULTIVITAMIN TAB Take 1 tablet by mouth once daily. No current facility-administered medications for this visit. ALLERGIES No Known Allergies REVIEW OF SYSTEMS - POSITIVES IN BOLD GENERAL:No weight loss, malaise or fevers HEENT:Negative for frequent or significant headaches, No changes in hearing or vision, no nose bleeds or other nasal problems NECK:Negative for lumps, goiter, pain and significant neck swelling RESPIRATORY: Negative for cough, hemoptysis, wheezing, COPD, dyspnea or shortness of breath CARDIOVASCULAR: Negative for chest pain, leg swelling, hypertension, CHF or palpitations PHYSICAL EXAMINATION: BP 128/60 (BP Site: Right Arm, BP Position: Sitting, BP Cuff Size: Regular Adult) Pulse (!) 59 Temp 36.9 C (98.5 F) (Temporal Artery) Resp 12 Wt 68.3 kg (150 lb 9.6 oz) SpO2 96% BMI 24.31kg/m GENERAL: alert and appropriate, in no distress and well-hydrated, well nourished SKIN: no rash noted HEAD: normocephalic, no abnormality or lesion noted EYES: pupil sizes are equal NECK: no self-reported cervical adenopathy ACANTHOSIS: none noted EXTREMITIES: normal NEUROLOGIC: no facial droop, speech is clear and fluent and no obvious deficit ASSESSMENT/PLAN (E11.9, Z79.4) Type 2 diabetes mellitus without complication, with long-term current use of insulin(HCC) (primary encounter diagnosis) Comment: CGM DOWNLOADED AND REVIEWED FOR OV RECOMMENDATIONS PER REVIEW FOLLOWS: Patient is compliant with CGM use and is benefiting from sensor use. Well controlled A1C POC shows patient at 7.1% No changes recommended at this time Recommended diet: Low carbohydrate and Low saturated fat, low simple sugar, high fiber diet Exercise minimally 150 minutes per week, increase as tolerated. Adequate hydration - 1/2 body wgt in oz of water daily, unless fluid restriction applies. I instructed the patient to monitor blood sugars 4 times per day If blood sugars are persistently high or low, to call our office. Patient to continue to follow up with his PCP and with other consultants regarding his other medical problems. Plan: HEMOGLOBIN A1C (POC) Lise Richter CNP * Mario Alberto Echavarria RN - 10/21/2024 9:43 AM EDT Images from the original note were not included. documented in this encounterSumma Health06-25-2025 NoteHNO ID: [id number] Author: LISE RICHTER APRN.[facility] Service: ? Author Type: Nurse Practitioner Type: Progress Notes Filed: 10/21/2024 10:02 Note Text: OFFICE VISIT PROGRESS NOTE CC Vidal Kay is a 79 year old who presents today for blood sugar review, insulin dose review, adjust. HPI Diagnosed with diabetes mellitus type II, ~ ~1991 Last endocrine OV 03/25/2024 Some elements copied from my note 03/25/2024 which have been updated where appropriate, and all reflect current medical decision making from date of this visit. 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 CURRENT DM MEDS FARXIGA 10 mg 1 tab daily LANTUS 12 units daily HUMALOG 4-4-4 plus S#1 SMBG Type of Monitor: Other DEXCOM G7 Patient is compliant with CGM use and is benefiting from sensor use. 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, gazelle 15 minutes, weights//curls/shoulders DM REVIEW OF SYSTEMS Last Eye Exam : 05/2025 Last Podiatry Exam: 11/2023 Cardiorespiratory: negative, denies chest pain, pressure Claudication: no Dyslipidemia: No High Blood Pressure: No CURRENT LABS Recent Labs 02/27/22 0813 06/08/22 0809 10/12/22 1211 12/11/22 0847 12/18/22 1151 01/22/23 0801 05/23/23 1259 07/03/23 0959 03/25/24 1501 05/28/24 0812 05/28/24 1116 ALT -- < > -- 16 -- 12 27 -- -- -- -- AST -- < > -- 15 -- 13* 34 -- -- -- -- UCRR 96.7 -- -- 57.1 -- -- -- -- -- -- 48.3 UALBR 95.1 -- -- 129.7 -- -- -- -- -- -- 263.9 UALBCR 98* -- -- 227* -- -- -- -- -- -- 546* TPROT -- < > -- 8.6* 8.6* 7.7 8.5* 8.8* -- -- -- -- ALB -- < > -- 3.6* -- 3.3* 3.5* -- -- -- -- CA -- < > -- 9.7 -- 8.9 9.8 -- -- 9.9 -- TBILI -- < > -- 0.2 -- 0.2 0.3 -- -- -- -- ALKPHOS -- < > -- 109 -- 100 137* -- -- -- -- GLUC -- < > -- 109* -- 119* 212* -- -- 129* -- BUN -- < > -- 21 -- 29* 32* -- -- 34* -- CREAT -- < > -- 0.97 -- 0.77 0.79 -- -- 1.04 -- NA -- < > -- 135* -- 135* 134* -- -- 138 -- K -- < > -- 5.0 -- 4.6 4.1 -- -- 4.7 -- CHLOR -- < > -- 99 -- 101 95* -- -- 103 -- CO2 -- < > -- 24 -- 25 27 -- -- 25 -- ANION -- < > -- 12 -- 9 12 -- -- 10 -- EGFROTH -- < > -- 80 -- 92 91 -- -- 73 -- HBA1C -- < > -- 8.0* -- -- -- 7.3* 6.8* 6.8* -- B12 -- -- 734 -- -- -- 765 -- -- -- -- < > = values in this interval not displayed. Recent Labs 12/07/21 0813 02/27/22 0805 06/08/22 0809 10/12/22 1211 12/11/22 0847 05/23/23 1259 07/03/23 0959 03/25/24 1501 05/28/24 0812 TG 41 -- -- -- 47 -- -- -- 47 CHOL 161 -- -- -- 157 -- -- -- 141 HDL 74 -- -- -- 66 -- -- -- 90 VLDL 8 -- -- -- 9 -- -- -- 9 LDL 79 -- -- -- 82 -- -- -- 42 FASTTIME 13 -- -- -- 12 -- -- -- 11 TCHDL 2.18 -- -- -- 2.38 -- -- -- 1.57 LDLHDL 1.07 -- -- -- 1.24 -- -- -- 0.47 NONHDL 87 -- -- -- 91 -- -- -- 51 HBA1C 7.3* < > 7.3* -- 8.0* -- 7.3* 6.8* 6.8* HBA0 163 < > 163 -- 183 -- -- -- 148 B12 -- -- -- 734 -- 765 -- -- -- < > = values in this interval not displayed. 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 Hurtado, [facility] PAST SURGICAL HISTORY Procedure Laterality Date CABG (2) VEIN GRAFTS AND ARTERIAL GRAFT(S 02/28/2023 COLONOSCOPY FLX DX W/COLLJ SPEC WHEN PFRMD 03/11/1995 Colonoscopy COLONOSCOPY FLX DX W/COLLJ SPEC WHEN PFRMD 07/12/2008 Colonoscopy COLONOSCOPY FLX DX W/COLLJ SPEC WHEN PFRMD 05/16/2015 Colonoscopy COLONOSCOPY FLX DX W/COLLJ SPEC WHEN PFRMD 06/08/2019 Colonoscopy COLONOSCOPY W/BIOPSY SINGLE/MULTIPLE 02/28/2006 LEFT HEART CATH,PERCUTANEOUS 02/13/2023 NEUROPLASTY AND/TRANSPOS MEDIAN NRV CARPAL TUNNE 1992 Carpal tunnel decomp, bilateral REPL AORTIC VALVE W/BYP 02/28/2023 [place] Bioprosthetic SIGMOIDOSCOPY FLX DX W/ (more content not included)...[facility] 10-21-2024 NoteHNO ID: [id number] Author: MARIO ALBERTO ECHAVARRIA RN Service: ? Author Type: Registered Nurse Type: Progress Notes Filed: 10/21/2024 10:02 Note Text:[facility]06-12-2025 Telephone encounter Note* Telephone Encounter - Yary Delacruz RN - 10/08/2024 3:05 PM EDT Received request from [facility] [place] of Last office visit notes/labs to be faxed to them at . Pt has a follow up on 10/21/2024 in [place]. Forwarding to [place] to fax once patient is seen there/same day. [facility]06-12-2025 Miscellaneous Notes* Telephone Encounter - Yary Delacruz RN - 10/08/2024 3:05 PM EDT Received request from [facility] [place] of Last office visit notes/labs to be faxed to them at . Pt has a follow up on 10/21/2024 in [place]. Forwarding to [place] to fax once patient is seen there/same day. * Telephone Encounter - Yary Jackson MA - 10/08/2024 1:58 PM EDT Phoned patients to discuss CGM prescription. Insurance rukes are office visit every 3-6 months, patient has not been seen since 02/2024. There is nothing that can be done to change this. Lilian reports understanding and asks to be placed on waitlist for Lise Richter CNP. Yary Jackson MA * Telephone Encounter - Alyssa Colin - 10/08/2024 1:14 PM EDT Patients called and stated that her will be using his last Dexcom sensor today and they will need a short term refill until he seen on 10/21. Please advice documented in this encounterSumma Health06-12-2025 Telephone encounter Note * Telephone Encounter - Yary Jackson MA - 10/08/2024 1:58 PM EDT Phoned patients to discuss CGM prescription. Insurance rukes are office visit every 3-6 months, patient has not been seen since 02/2024. There is nothing that can be done to change this. Lilian reports understanding and asks to be placed on waitlist for Lise Schmidbetykelly ABRAM. Yary Jackson MA [facility]06-12-2025 Telephone encounter Note* Telephone Encounter - Alyssa Colin - 10/08/2024 1:14 PM EDT Patients called and stated that her will be using his last Dexcom sensor today and they will need a short term refill until he seen on 10/21. Please advice [facility]05-05-2025 Telephone encounter Note* Telephone Encounter - Sneha Guillaume MA - 08/31/2024 12:14 PM EDT Spoke to spouse who verbalized understanding to provider note. requested trying low dose [facility]entin [facility]. Aware can pick OTC lidocaine cream up from pharmacy as well. Sneha Guillaume MA [facility]05-05-2025 Miscellaneous Notes* Telephone Encounter - Sneha Guillaume MA - 08/31/2024 12:14 PM EDT Spoke to spouse who verbalized understanding to provider note. requested trying low dose gabapentin to [facility]. Aware can pick OTC lidocaine cream up from pharmacy as well. Sneha Guillaume MA * Telephone Encounter - Lynn Vieyra APRN.CNP - 08/31/2024 11:41 AM EDT The acyclovir is an anti viral medication, he no longer has an active viral infection which is the only thing the medication treats. It will not help with the itching and can potentially affect his liver. There is no proven treatment for the itching following shingles pain however sometimes the medications used to treat shingles pain may also help with the itching. These medications include Gabapentin, Lyrica and amitriptyline. We could start with a low dose of Gabapentin and go from there. In addition to this topical lidocaine may also be effective, insurance typically does not cover this but we could send the prescription and see Lynn Vieyra APRN.CAMPUS REP * Telephone Encounter - Lizette Thacker RN - 08/31/2024 10:56 AM EDT Pts called and is notified of providers message and instructions. She states they know the itching can be due to the nerves affected by the shingles virus. She states Pt was just in last week for a recheck. Pt initial visit was on 08/12/24 and had f/u on 08/19/24. She said I don't know why he has to come in again. She states she has been putting the cream on it, but he needs something to give him some relief. She is asking if provider will call in the Acyclovir. Lizette Thacker RN * Telephone Encounter - Sneha Guillaume MA - 08/31/2024 10:29 AM EDT Left message for spouse to call back Sneha Guillaume MA * Telephone Encounter - Lynn Vieyra APRN.CNP - 08/31/2024 10:20 AM EDT Acyclovir is for treatment of Shingles in the acute phase. Itching can be due to the nerves affected by the shingles virus. Recommend scheduling a follow-up to discuss further Lynn Vieyra APRN.CNP * Telephone Encounter - Betty Irene - 08/31/2024 8:03 AM EDT Spouse is calling in regards to patients shingles and he is still having some itchiness, and pharmacy recommend Acyclovir, Please advise spouse if this is something patient could try, they use [facility] [place] documented in this encounterSumma Health05-05-2025 Telephone encounter Note * Telephone Encounter - Lynn Vieyra APRN.CNP - 08/31/2024 11:41 AM EDT The acyclovir is an anti viral medication, he no longer has an active viral infection which is the only thing the medication treats. It will not help with the itching and can potentially affect his liver. There is no proven treatment for the itching following shingles pain however sometimes the medications used to treat shingles pain may also help with the itching. These medications include Gabapentin, Lyrica and amitriptyline. We could start with a low dose of Gabapentin and go from there. In addition to this topical lidocaine may also be effective, insurance typically does not cover this but we could send the prescription and see Lynn Vieyra APRN.CNP [facility]05-05-2025 Telephone encounter Note* Telephone Encounter - Lizette Thacker RN - 08/31/2024 10:56 AM EDT Pts called and is notified of providers message and instructions. She states they know the itching can be due to the nerves affected by the shingles virus. She states Pt was just in last week for a recheck. Pt initial visit was on 08/12/24 and had f/u on 08/19/24. She said I don't know why he has to come in again. She states she has been putting the cream on it, but he needs something to give him some relief. She is asking if provider will call in the Acyclovir. Lizette Thacker, RN [facility]05-05-2025 Telephone encounter Note* Telephone Encounter - Sneha Guillaume MA - 08/31/2024 10:29 AM EDT Left message for spouse to call back Sneha Guillaume MA [facility]05-05-2025 Telephone encounter Note* Telephone Encounter - Lynn Vieyra APRN.CNP - 08/31/2024 10:20 AM EDT Acyclovir is for treatment of Shingles in the acute phase. Itching can be due to the nerves affected by the shingles virus. Recommend scheduling a follow-up to discuss further Lynn Vieyra APRN.CNP [facility]05-05-2025 Telephone encounter Note* Telephone Encounter - Betty Irene - 08/31/2024 8:03 AM EDT Spouse is calling in regards to patients shingles and he is still having some itchiness, and pharmacy recommend Acyclovir, Please advise spouse if this is something patient could try, they use [facility]05-01-2025 Telephone encounter Note* Telephone Encounter - Sanjuanita San MA - 08/27/2024 9:20 AM EDT Patient phones requesting refills as follows: Requested Prescriptions Pending Prescriptions Disp Refills Insulin [place], Disposable, (BD ULTRA-FINE VY PEN NEEDLE) 32 gauge x 5/32 400 each 3 Sig: USES 4 per day with insulin injections. Please review and advise. Sanjuanita San MA [facility]05-01-2025 Miscellaneous Notes* Telephone Encounter - Sanjuanita San MA - 08/27/2024 9:20 AM EDT Patient phones requesting refills as follows: Requested Prescriptions Pending Prescriptions Disp Refills Insulin [place], Disposable, (BD ULTRA-FINE VY PEN NEEDLE) 32 gauge x 5/32 400 each 3 Sig: USES 4 per day with insulin injections. Please review and advise. Sanjuanita San MA documented in this encounterSum[facility] Health04-23-2025 NoteHNO ID: [id number] Author: LYNN VIEYRA APRN.CAMPUS REP Service: ? Author Type: Nurse Practitioner Type: Progress Notes Filed: 08/19/2024 09:38 Note Text: CC: Patient presents with: Follow Up: Shingles x 1 week HPI Recording using Simperium software for draft documentation of the visit was discussed with the patient/authorized traffic workforce representative; all questions welcomed and answered. Patient/authorized traffic workforce representative agreed to proceed John is a 79-year-old male presenting for follow-up on shingles. John reports significant improvement in pain and rash associated with shingles. He has been applying a prescribed cream TID, and reports that ibuprofen 800 mg has been effective in managing pain. He has one dose of valacyclovir remaining, which he plans to take at lunchtime. He denies the appearance of new lesions and observes that existing ones are resolving. Review of Systems Constitutional: Negative for chills, diaphoresis, fatigue and fever. 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 Hurtado, [facility] PAST SURGICAL HISTORY Procedure Laterality Date CABG (2) VEIN GRAFTS AND ARTERIAL GRAFT(S 02/28/2023 COLONOSCOPY FLX DX W/COLLJ SPEC WHEN PFRMD 03/11/1995 Colonoscopy COLONOSCOPY FLX DX W/COLLJ SPEC WHEN PFRMD 07/12/2008 Colonoscopy COLONOSCOPY FLX DX W/COLLJ SPEC WHEN PFRMD 05/16/2015 Colonoscopy COLONOSCOPY FLX DX W/COLLJ SPEC WHEN PFRMD 06/08/2019 Colonoscopy COLONOSCOPY W/BIOPSY SINGLE/MULTIPLE 02/28/2006 LEFT HEART CATH,PERCUTANEOUS 02/13/2023 NEUROPLASTY AND/TRANSPOS MEDIAN NRV CARPAL TUNNE 1992 Carpal tunnel decomp, bilateral REPL AORTIC VALVE W/BYP 02/28/2023 [place] Bioprosthetic SIGMOIDOSCOPY FLX DX W/COLLJ SPEC BR/WA IF PFRMD 04/08/2009 SIGMOIDOSCOPY FLX DX W/COLLJ SPEC BR/WA IF PFRMD 06/23/2015 Sigmoidoscopy, flexible ALLERGIES Patient has no known allergies. MEDICATIONS valACYclovir (VALTREX) 1 gram tablet Take 1 tablet by mouth three times a day for 7 days. for 7 days ibuprofen (MOTRIN) 800 mg tablet Take 1 tablet by mouth every 8 hours as needed for pain. triamcinolone acetonide (KENALOG) 0.1 % cream Apply 1 application to affected area three times a day as needed for up to 14 days. ramipril (ALTACE) 5 mg capsule Take 1 capsule by mouth once daily. insulin glargine (LANTUS SOLOSTAR U-100 INSULIN) 100 unit/mL (3 mL) Inject 12 Units subcutaneously daily at bedtime. insulin lispro (HUMALOG KWIKPEN INSULIN) 100 unit/mL Inject 4 units with meals PLUS sliding scale #1 (1 unit for every 50 over 150 PRE MEAL blood sugar) ~20 units daily Insulin [place], Disposable, (BD ULTRA-FINE VY PEN NEEDLE) 32 gauge x 5/32 USES 4 per day with insulin injections. FARXIGA 10 mg tablet TAKE 1 TABLET DAILY Blood-Glucose Sensor (DEXCOM G7 SENSOR) rick CHANGE sensor every 10 days. USE FOR CONTINUOUS GLUCOSE MONITORING. INSULIN USE E11.9 flaxseed oil (OMEGA 3 ORAL) Take 1 capsule by mouth once daily. LECITHIN ORAL Take 1 tablet by mouth once daily. aspirin, enteric coated (ASPIRIN, ENTERIC COATED) 81 mg EC tablet Take 81 mg by mouth once daily. metoprolol tartrate, short acting, (LOPRESSOR) 25 mg tablet Take 25 mg by mouth two times a day. rosuvastatin (CRESTOR) 40 mg tablet Take 40 mg by mouth once daily. OTC PRODUCT Nehemi[place]lee Iron: Take two tablets by mouth once daily. Blood-Glucose Meter,Continuous (DEXCOM G7 HOME HEALTH NURSE LICENSED PRACTICAL) [facility] [place] Dispense one lifter/driver USE FOR CONTINUOUS GLUCOSE MONITORING. INSULIN USE E11.9 lancets (ONE TOUCH DELICA) 33 gauge Test blood sugar(s) 4 times daily. Dx: Other DM Code E11.49 Insulin: Yes Mesalamine (LIALDA) 1.2 gram EC tablet Take 2 tablets by mouth once daily. Per Dr. Jeff Jimenez. VITAMIN C 1,000 MG TAB Take 1,000 mg by mouth once daily. GLUCOSAMINE CHONDROITIN MAXSTR 500 MG-400 MG CAP Take 1 capsule by mouth once daily. MULTIVITAMIN TAB Take 1 tablet by mouth once daily. acetaminophen (TYLENOL) 500 mg tablet Take 500 mg by mouth two times a day as needed for pain. FAMILY HISTORY Problem Relation Age of Onset Diabetes Mother 55 CAD Coronary Artery Disease Mother Diabetes Father C (more content not included)...[facility]04-23-2025 History of Present illness Narrative* Lynn Vieyra, VINICIO.CAMPUS REP - 08/19/2024 9:35 AM EDT Images from the original note were not included. CC: Patient presents with: Follow Up: Shingles x 1 week HPI Recording using Simperium software for draft documentation of the visit was discussed with the patient/authorized traffic workforce representative; all questions welcomed and answered. Patient/authorized traffic workforce representative agreed to proceed John is a 79-year-old male presenting for follow-up on shingles. John reports significant improvement in pain and rash associated with shingles. He has been applyinga prescribed cream TID, and reports that ibuprofen 800 mg has been effective in managing pain. He has one dose of valacyclovir remaining, which he plans to take at lunchtime. He denies the appearanceof new lesions and observes that existing ones are resolving. Review of Systems Constitutional: Negative for chills, diaphoresis, fatigue and fever. 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 Hurtado, [facility] PAST SURGICAL HISTORY Procedure Laterality Date CABG (2) VEIN GRAFTS & ARTERIAL GRAFT(S 02/28/2023 COLONOSCOPY FLX DX W/COLLJ SPEC WHEN PFRMD 03/11/1995 Colonoscopy COLONOSCOPY FLX DX W/COLLJ SPEC WHEN PFRMD 07/12/2008 Colonoscopy COLONOSCOPY FLX DX W/COLLJ SPEC WHEN PFRMD 05/16/2015 Colonoscopy COLONOSCOPY FLX DX W/COLLJ SPEC WHEN PFRMD 06/08/2019 Colonoscopy COLONOSCOPY W/BIOPSY SINGLE/MULTIPLE 02/28/2006 LEFT HEART CATH,PERCUTANEOUS 02/13/2023 NEUROPLASTY &/TRANSPOS MEDIAN NRV CARPAL TUNNE 1992 Carpal tunnel decomp, bilateral REPL AORTIC VALVE W/BYP 02/28/2023 [facility] Bioprosthetic SIGMOIDOSCOPY FLX DX W/COLLJ SPEC BR/WA IF PFRMD 04/08/2009 SIGMOIDOSCOPY FLX DX W/COLLJ SPEC BR/WA IF PFRMD 06/23/2015 Sigmoidoscopy, flexible ALLERGIES Patient has no known allergies. MEDICATIONS valACYclovir (VALTREX) 1 gram tablet Take 1 tablet by mouth three times a day for 7 days. for 7 days ibuprofen (MOTRIN) 800 mg tablet Take 1 tablet by mouth every 8 hours as needed for pain. triamcinolone acetonide (KENALOG) 0.1 % cream Apply 1 application to affected area three times a day as needed for up to 14 days. ramipril (ALTACE) 5 mg capsule Take 1 capsule by mouth once daily. insulin glargine (LANTUS SOLOSTAR U-100 INSULIN) 100 unit/mL (3 mL) Inject 12 Units subcutaneously daily at bedtime. insulin lispro (HUMALOG KWIKPEN INSULIN) 100 unit/mL Inject 4 units with meals PLUS sliding scale #1 (1 unit for every 50 over 150 PRE MEAL blood sugar) ~20 units daily Insulin [place], Disposable, (BD ULTRA-FINE VY PEN NEEDLE) 32 gauge x 5/32 USES 4 per day with insulin injections. FARXIGA 10 mg tablet TAKE 1 TABLET DAILY Blood-Glucose Sensor (Solexel G7 SENSOR) rick CHANGE sensor every 10 days. USE FOR CONTINUOUS GLUCOSE MONITORING. INSULIN USE E11.9 flaxseed oil (OMEGA 3 ORAL) Take 1 capsule by mouth once daily. LECITHIN ORAL Take 1 tablet by mouth once daily. aspirin, enteric coated (ASPIRIN, ENTERIC COATED) 81 mg EC tablet Take 81 mg by mouth once daily. metoprolol tartrate, short acting, (LOPRESSOR) 25 mg tablet Take 25 mg by mouth two times a day. rosuvastatin (CRESTOR) 40 mg tablet Take 40 mg by mouth once daily. OTC PRODUCT Shaklee Iron: Take two tablets by mouth once daily. Blood-Glucose Meter,Continuous (DEXCOM G7 HOME HEALTH NURSE LICENSED PRACTICAL) [facility] [place] Dispense one lifter/driver USE FOR CONTINUOUS GLUCOSE MONITORING. INSULIN USE E11.9 lancets (ONE TOUCH DELICA) 33 gauge Test blood sugar(s) 4 times daily. Dx: Other DM Code E11.49 Insulin: Yes Mesalamine (LIALDA) 1.2 gram EC tablet Take 2 tablets by mouth once daily. Per Dr. Aguilar Friend. VITAMIN C 1,000 MG TAB Take 1,000 mg by mouth once daily. GLUCOSAMINE CHONDROITIN MAXSTR 500 MG-400 MG CAP Take 1 capsule by mouth once daily. MULTIVITAMIN TAB Take 1 tablet by mouth once daily. acetaminophen (TYLENOL) 500 mg tablet Take 500 mg by mouth two times a day as needed for pain. FAMILY HISTORY Problem Relation Age of Onset Diabetes Mother 55 CAD Coronary Artery Disease Mother Diabetes Father CAD Coronary Artery Disease Father 55 CABG Breast Cancer Sister Breast Cancer Daughter Social History Tobacco Use Smoking status: Former Types: Pipe, Cigarettes Smokeless tobacco: Current Types: Chew Tobacco comments: 20 years cigs till 1979, pipe till Vaping Use Vaping status: Never Used Substance Use Topics Alcohol use: Not Currently Drug use: Never BP 132/76 Pulse 88 Resp 12 Wt 69.1 kg (152 lb 5.4 oz) SpO2 99% BMI 24.59 kg/m Physical Exam Vitals reviewed. Constitutional: Appearance: Normal appearance. Skin: Neurological: Mental Status: He is alert. Assessment/Plan 1. Herpes zoster without complications (B02.9) Rash is improving, with lesions drying up and no new vesicles forming. Patient experiences occasional paresthesia described as a wet sensation. Pain has significantly decreased. - Continue valacyclovir until completion; one dose remaining. - Advised to apply topical cream as needed for pruritus, not exceeding three times daily. - Recommended discontinuation of scheduled ibuprofen 800 mg TID; advised to use ibuprofen or Tylenol only as needed for residual discomfort. Prescription instructions reviewed with patient as applicable. Potential red flag symptoms discussed with the patient. Reviewed appropriate action plan to take if red flag symptoms occur. Patient agreeable to treatment plan. Lynn Vieyra APRN.CAMPUS REP documented in this encounterSum[facility]04-23-2025 Instructions* Patient Instructions* Lynn Vieyra APRN.CNP - 08/19/2024 9:34 AM EDT We discussed your shingles: - Your rash is improving, and there are no new spots. The rash is drying up, and the larger blisteris smaller and less inflamed, which is expected at this stage of healing. - Continue using the cream (as prescribed) only as needed for itching or discomfort. It does not need to be applied three times a day unless necessary. You can apply it directly to the areas that arebothering you. It is not harmful to use it once daily, but it is not required if you are not experiencing symptoms. - You have one refill left for the cream if needed. - The ibuprofen (800 mg) should only be taken as needed for pain or discomfort. If you are not experiencing pain, you do not need to take it. We recommend reducing your use of ibuprofen and switchingback to Tylenol if needed for pain relief, as long-term use of high-dose ibuprofen is not advised. - Finish the antiviral medication (valacyclovir) as prescribed. You mentioned you have one dose left; take it at the scheduled time, and then you are done with this medication. Please continue monitoring your symptoms. If you notice any new spots, worsening pain, or other concerns, contact our office. documented in this encounterSumma Health04-16-2025 NoteHNO ID: [id number] Author: LYNN VIEYRA APRN.CNP Service: ? Author Type: Nurse Practitioner Type: Progress Notes Filed: 08/12/2024 09:23 Note Text: CC: Patient presents with: Rash: Left side x 4 days HPI Vidal Kay is a 79 year old male who presents for above Patient reports painful, itchy rash on the left side of chest and left axilla for about 72 hours. Denies fever, chills, flu like symptoms. He has been taking ibuprofen for the pain with temporary relief. 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 Hurtado, [facility] PAST SURGICAL HISTORY Procedure Laterality Date CABG (2) VEIN GRAFTS AND ARTERIAL GRAFT(S 02/28/2023 COLONOSCOPY FLX DX W/COLLJ SPEC WHEN PFRMD 03/11/1995 Colonoscopy COLONOSCOPY FLX DX W/COLLJ SPEC WHEN PFRMD 07/12/2008 Colonoscopy COLONOSCOPY FLX DX W/COLLJ SPEC WHEN PFRMD 05/16/2015 Colonoscopy COLONOSCOPY FLX DX W/COLLJ SPEC WHEN PFRMD 06/08/2019 Colonoscopy COLONOSCOPY W/BIOPSY SINGLE/MULTIPLE 02/28/2006 LEFT HEART CATH,PERCUTANEOUS 02/13/2023 NEUROPLASTY AND/TRANSPOS MEDIAN NRV CARPAL TUNNE 1992 Carpal tunnel decomp, bilateral REPL AORTIC VALVE W/BYP 02/28/2023 [place] Bioprosthetic SIGMOIDOSCOPY FLX DX W/COLLJ SPEC BR/WA IF PFRMD 04/08/2009 SIGMOIDOSCOPY FLX DX W/COLLJ SPEC BR/WA IF PFRMD 06/23/2015 Sigmoidoscopy, flexible ALLERGIES Patient has no known allergies. MEDICATIONS ramipril (ALTACE) 5 mg capsule Take 1 capsule by mouth once daily. insulin glargine (LANTUS SOLOSTAR U-100 INSULIN) 100 unit/mL (3 mL) Inject 12 Units subcutaneously daily at bedtime. insulin lispro (HUMALOG KWIKPEN INSULIN) 100 unit/mL Inject 4 units with meals PLUS sliding scale #1 (1 unit for every 50 over 150 PRE MEAL blood sugar) ~20 units daily FARXIGA 10 mg tablet TAKE 1 TABLET DAILY Blood-Glucose Sensor (DEXCOM G7 SENSOR) rick CHANGE sensor every 10 days. USE FOR CONTINUOUS GLUCOSE MONITORING. INSULIN USE E11.9 flaxseed oil (OMEGA 3 ORAL) Take 1 capsule by mouth once daily. LECITHIN ORAL Take 1 tablet by mouth once daily. acetaminophen (TYLENOL) 500 mg tablet Take 500 mg by mouth two times a day as needed for pain. aspirin, enteric coated (ASPIRIN, ENTERIC COATED) 81 mg EC tablet Take 81 mg by mouth once daily. metoprolol tartrate, short acting, (LOPRESSOR) 25 mg tablet Take 25 mg by mouth two times a day. rosuvastatin (CRESTOR) 40 mg tablet Take 40 mg by mouth once daily. OTC PRODUCT Shaklee Iron: Take two tablets by mouth once daily. Blood-Glucose Meter,Continuous (DEXCOM G7 HOME HEALTH NURSE LICENSED PRACTICAL) [facility] [place] Dispense one lifter/driver USE FOR CONTINUOUS GLUCOSE MONITORING. INSULIN USE E11.9 Mesalamine (LIALDA) 1.2 gram EC tablet Take 2 tablets by mouth once daily. Per Dr. Jeff Jimenez. VITAMIN C 1,000 MG TAB Take 1,000 mg by mouth once daily. GLUCOSAMINE CHONDROITIN MAXSTR 500 MG-400 MG CAP Take 1 capsule by mouth once daily. MULTIVITAMIN TAB Take 1 tablet by mouth once daily. valACYclovir (VALTREX) 1 gram tablet Take 1 tablet by mouth three times a day for 7 days. for 7 days ibuprofen (MOTRIN) 800 mg tablet Take 1 tablet by mouth every 8 hours as needed for pain. triamcinolone acetonide (KENALOG) 0.1 % cream Apply 1 application to affected area three times a day as needed for up to 14 days. Insulin [place], Disposable, (BD ULTRA-FINE VY PEN NEEDLE) 32 gauge x 5/32 USES 4 per day with insulin injections. lancets (ONE TOUCH DELICA) 33 gauge Test blood sugar(s) 4 times daily. Dx: Other DM Code E11.49 Insulin: Yes FAMILY HISTORY Problem Relation Age of Onset Diabetes Mother 55 CAD Coronary Artery Disease Mother Diabetes Father CAD Coronary Artery Disease Father 55 CABG Breast Cancer Sister Breast Cancer Daughter Social History Tobacco Use Smoking status: Former Types: Pipe, Cigarettes Smokeless tobacco: Current Types: Chew Tobacco comments: 20 years cigs till 1979, pipe till Vaping Use Vaping status: Never Used Substance Use Topics Alcohol use: Not Currently Drug use: Never BP 136/84 Pulse 90 Temp 36.8 ?C (98.2 ?F) (Temporal) Re (more content not included)...[facility]04-16-2025 History of Present illness Narrative* Lynn Vieyra, BOTTLER HELPER.CAMPUS REP - 08/12/2024 9:14 AM EDT Images from the original note were not included. CC: Patient presents with: Rash: Left side x 4 days HPI Vidal Kay is a 79 year old male who presents for above Patient reports painful, itchy rash on the left side of chest and left axilla for about 72 hours. Denies fever, chills, flu like symptoms. He has been taking ibuprofen for the pain with temporary relief. 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 Hurtado, [facility] PAST SURGICAL HISTORY Procedure Laterality Date CABG (2) VEIN GRAFTS & ARTERIAL GRAFT(S 02/28/2023 COLONOSCOPY FLX DX W/COLLJ SPEC WHEN PFRMD 03/11/1995 Colonoscopy COLONOSCOPY FLX DX W/COLLJ SPEC WHEN PFRMD 07/12/2008 Colonoscopy COLONOSCOPY FLX DX W/COLLJ SPEC WHEN PFRMD 05/16/2015 Colonoscopy COLONOSCOPY FLX DX W/COLLJ SPEC WHEN PFRMD 06/08/2019 Colonoscopy COLONOSCOPY W/BIOPSY SINGLE/MULTIPLE 02/28/2006 LEFT HEART CATH,PERCUTANEOUS 02/13/2023 NEUROPLASTY &/TRANSPOS MEDIAN NRV CARPAL TUNNE 1992 Carpal tunnel decomp, bilateral REPL AORTIC VALVE W/BYP 02/28/2023 [place] Bioprosthetic SIGMOIDOSCOPY FLX DX W/COLLJ SPEC BR/WA IF PFRMD 04/08/2009 SIGMOIDOSCOPY FLX DX W/COLLJ SPEC BR/WA IF PFRMD 06/23/2015 Sigmoidoscopy, flexible ALLERGIES Patient has no known allergies. MEDICATIONS ramipril (ALTACE) 5 mg capsule Take 1 capsule by mouth once daily. insulin glargine (LANTUS SOLOSTAR U-100 INSULIN) 100 unit/mL (3 mL) Inject 12 Units subcutaneously daily at bedtime. insulin lispro (HUMALOG KWIKPEN INSULIN) 100 unit/mL Inject 4 units with meals PLUS sliding scale #1 (1 unit for every 50 over 150 PRE MEAL blood sugar) ~20 units daily FARXIGA 10 mg tablet TAKE 1 TABLET DAILY Blood-Glucose Sensor (DEXCOM G7 SENSOR) rick CHANGE sensor every 10 days. USE FOR CONTINUOUS GLUCOSE MONITORING. INSULIN USE E11.9 flaxseed oil (OMEGA 3 ORAL) Take 1 capsule by mouth once daily. LECITHIN ORAL Take 1 tablet by mouth once daily. acetaminophen (TYLENOL) 500 mg tablet Take 500 mg by mouth two times a day as needed for pain. aspirin, enteric coated (ASPIRIN, ENTERIC COATED) 81 mg EC tablet Take 81 mg by mouth once daily. metoprolol tartrate, short acting, (LOPRESSOR) 25 mg tablet Take 25 mg by mouth two times a day. rosuvastatin (CRESTOR) 40 mg tablet Take 40 mg by mouth once daily. OTC PRODUCT Shaklee Iron: Take two tablets by mouth once daily. Blood-Glucose Meter,Continuous (DEXCOM G7 HOME HEALTH NURSE LICENSED PRACTICAL) [facility] [place] Dispense one lifter/driver USE FOR CONTINUOUS GLUCOSE MONITORING. INSULIN USE E11.9 Mesalamine (LIALDA) 1.2 gram EC tablet Take 2 tablets by mouth once daily. Per Dr. Jeff Jimenez. VITAMIN C 1,000 MG TAB Take 1,000 mg by mouth once daily. GLUCOSAMINE CHONDROITIN MAXSTR 500 MG-400 MG CAP Take 1 capsule by mouth once daily. MULTIVITAMIN TAB Take 1 tablet by mouth once daily. valACYclovir (VALTREX) 1 gram tablet Take 1 tablet by mouth three times a day for 7 days. for 7 days ibuprofen (MOTRIN) 800 mg tablet Take 1 tablet by mouth every 8 hours as needed for pain. triamcinolone acetonide (KENALOG) 0.1 % cream Apply 1 application to affected area three times a day as needed for up to 14 days. Insulin [place], Disposable, (BD ULTRA-FINE VY PEN NEEDLE) 32 gauge x 5/32 USES 4 per day with insulin injections. lancets (ONE TOUCH DELICA) 33 gauge Test blood sugar(s) 4 times daily. Dx: Other DM Code E11.49 Insulin: Yes FAMILY HISTORY Problem Relation Age of Onset Diabetes Mother 55 CAD Coronary Artery Disease Mother Diabetes Father CAD Coronary Artery Disease Father 55 CABG Breast Cancer Sister Breast Cancer Daughter Social History Tobacco Use Smoking status: Former Types: Pipe, Cigarettes Smokeless tobacco: Current Types: Chew Tobacco comments: 20 years cigs till 1979, pipe till Vaping Use Vaping status: Never Used Substance Use Topics Alcohol use: Not Currently Drug use: Never BP 136/84 Pulse 90 Temp 36.8 C (98.2 F) (Temporal) Resp 14 Wt 69.7 kg (153 lb 10.6 oz) SpO2 97% BMI 24.80 kg/m Physical Exam Vitals reviewed. Constitutional: Appearance: Normal appearance. Musculoskeletal: Arms: Neurological: Mental Status: He is alert. ASSESSMENT/PLAN: 1. Herpes zoster without complication - ICD9: 053.9, ICD10: B02.9 - Reviewed with patient today: disease etiology, clinical symptoms, treatment options and concept of post herpetic neuralgia; given patient education handout from Up to Date - Start treatment with Valtrex x 7 days - symptom management with topical kenalog and ibuprofen 800 mg as needed - Follow-up in seven days or sooner as needed Prescription instructions reviewed with patient as applicable. Potential red flag symptoms discussed with the patient. Reviewed appropriate action plan to take if red flag symptoms occur. Patient agreeable to treatment plan. Lynn Vieyra APRN.CNP Medical Decision Making: Problems: Low: Acute, uncomplicated illness or injury Risk: Low: Low risk from testing/treatment Moderate: Drug management Medical Decision Making Level: 3 - Low documented in this encounterSumma Health04-07-2025 Telephone encounter Note * Telephone Encounter - [place] Alicja Landon - 08/03/2024 4:04 PM EDT Prescription Refill Information The patient has been identified by name and date of : Yes Caregiver verified no other encounters exist for this prescription request: Yes Caregiver confirmed with patient/requestor that no other refills are due, in the near future, with this provider at this time: Yes The last office visit in the department: 06/03/24 Does the patient have a future office visit with this provider/department: Yes Requested Prescriptions Pending Prescriptions Disp Refills ramipril (ALTACE) 5 mg capsule 90 capsule 3 Sig: Take 1 capsule by mouth once daily. Alicja Gutierrez [facility] August 03, 2024 4:05 PM [facility]04-07-2025 Miscellaneous Notes* Telephone Encounter - [place] Alicja Landon - 08/03/2024 4:04 PM EDT Prescription Refill Information The patient has been identified by name and date of : Yes Caregiver verified no other encounters exist for this prescription request: Yes Caregiver confirmed with patient/requestor that no other refills are due, in the near future, with this provider at this time: Yes The last office visit in the department: 06/03/24 Does the patient have a future office visit with this provider/department: Yes Requested Prescriptions Pending Prescriptions Disp Refills ramipril (ALTACE) 5 mg capsule 90 capsule 3 Sig: Take 1 capsule by mouth once daily. Alicja Gutierrez [facility] August 03, 2024 4:05 PM documented in this encounterSumma Health04-02-2025 Evaluation note* Diagnosis Onset Date Resolution Status Admit Date Bilateral carotid artery disease acu te July 29, 2024 7:59am Essential hypertension acute Ap ril 2024 7:59am Mixed hyperlipidemia acute Apri l 2024 7:59am S/P CABG x 2 acute July 29, 025 7:59am S/P aortic valve replacement chronic July 29, 2024 7:59am Anemia chronic August 26 10:01am Wal[place]strom macroglobulinemia chroni c August 26, 2024 10:01am [facility] Work Phone: 1(302) 395-954603-17-2025 Telephone encounter Note* Telephone Encounter - Mario Alberto Echavarria RN - 07/13/2024 9:45 AM EDT Images from the original note were not included. Most recent Endocrinology visit: Last encounter Visit on 03/25/2024 (with Lise Mark Cioce) 12/19/2022 in [facility] with CIOCE, LISE C for Type II diabetes mellitus with manifestations (HCC) 04/03/2023 in [facility] [place] with CIOCE, LISE C for Poorly controlled type 2 diabetes mellitus (HCC) 07/03/2023 in [facility] [place] with CIOCE, LISE C for Type 2 diabetes mellitus without complication, with long-term current use of insulin (HCC) 03/25/2024 in [facility] [place] with CIOCE, LISE C for Poorly controlled type 2 diabetes mellitus (HCC) Upcoming Endocrinology Appointments - Next 365 Days Visit Type Date Time Department EST JOSE A PATIENT 10/21/2024 9:45 AM [facility] Requested Prescriptions Pending Prescriptions Disp Refills insulin glargine (LANTUS SOLOSTAR U-100 INSULIN) 100 unit/mL (3 mL) 15 mL 2 Sig: Inject 12 Units subcutaneously daily at bedtime. Latest Ref Rng & Units 05/28/2024 03/25/2024 07/03/2023 Hemoglobin A1C Hemoglobin A1C 4.3 - 5.6 % 6.8 Hemoglobin A1C (POCT) 4.3 - 5.6 % 6.8 7.3 TSH: None on file in the last 12 months Free T3: None on file in the last 12 months Free T4: None on file in the last 12 months Thyroglobulin: None on file in the last 12 months Vitamin D: None on file in the last 12 months Hematocrit: None on file in the last 12 months Latest Ref Rng & Units 05/28/2024 05/23/2023 01/22/2023 Creatinine Creatinine 0.73 - 1.22 mg/dL 1.04 0.79 0.77 Latest Ref Rng & Units 05/28/2024 05/23/2023 01/22/2023 eGFR EGFR >=60 mL/min/1.73m 73 91 92 Latest Ref Rng & Units 05/28/2024 05/23/2023 01/22/2023 Potassium Potassium 3.7 - 5.1 mmol/L 4.7 4.1 4.6 Testosterone: None on file in the last 12 months IGF: None on file in the last 12 months Prolactin: None on file in the last 12 months Mario Alberto Echavarria RN July 13, 2024 9:47 AM [facility]03-17-2025 Miscellaneous Notes* Telephone Encounter - Mario Alberto Echavarria RN - 07/13/2024 9:45 AM EDT Images from the original note were not included. Most recent Endocrinology visit: Last encounter Visit on 03/25/2024 (with Lise Richter) 12/19/2022 in [facility] with LISE RICHTER for Type II diabetes mellitus with manifestations (HCC) 04/03/2023 in [facility] with LISE RICHTER for Poorly controlled type 2 diabetes mellitus (HCC) 07/03/2023 in [facility] with LISE RICHTER for Type 2 diabetes mellitus without complication, with long-term current use of insulin (HCC) 03/25/2024 in [facility] with LISE RICHTER for Poorly controlled type 2 diabetes mellitus (HCC) Upcoming Endocrinology Appointments - Next 365 Days Visit Type Date Time Department EST JOSE A PATIENT 10/21/2024 9:45 AM [facility] Requested Prescriptions Pending Prescriptions Disp Refills insulin glargine (LANTUS SOLOSTAR U-100 INSULIN) 100 unit/mL (3 mL) 15 mL 2 Sig: Inject 12 Units subcutaneously daily at bedtime. Latest Ref Rng & Units 05/28/2024 03/25/2024 07/03/2023 Hemoglobin A1C Hemoglobin A1C 4.3 - 5.6 % 6.8 Hemoglobin A1C (POCT) 4.3 - 5.6 % 6.8 7.3 TSH: None on file in the last 12 months Free T3: None on file in the last 12 months Free T4: None on file in the last 12 months Thyroglobulin: None on file in the last 12 months Vitamin D: None on file in the last 12 months Hematocrit: None on file in the last 12 months Latest Ref Rng & Units 05/28/2024 05/23/2023 01/22/2023 Creatinine Creatinine 0.73 - 1.22 mg/dL 1.04 0.79 0.77 Latest Ref Rng & Units 05/28/2024 05/23/2023 01/22/2023 eGFR EGFR >=60 mL/min/1.73m 73 91 92 Latest Ref Rng & Units 05/28/2024 05/23/2023 01/22/2023 Potassium Potassium 3.7 - 5.1 mmol/L 4.7 4.1 4.6 Testosterone: None on file in the last 12 months IGF: None on file in the last 12 months Prolactin: None on file in the last 12 months Mario Alberto Echavarria RN July 13, 2024 9:47 AM documented in this encounterSumma Health02-27-2025 Telephone encounter Note * Telephone Encounter - Joi Looney MA - 06/25/2024 11:03 AM EST Prescription Refill Information The patient has been identified by name and date of : Yes Caregiver verified no other encounters exist for this prescription request: Yes Caregiver confirmed with patient/requestor that no other refills are due, in the near future, with this provider at this time: Yes The last office visit in the department: 03/25/24 Does the patient have a future office visit with this provider/department: Yes Requested Prescriptions Pending Prescriptions Disp Refills insulin lispro (HUMALOG KWIKPEN INSULIN) 100 unit/mL 27 mL 3 Sig: Inject 4 units with meals PLUS sliding scale #1 (1 unit for every 50 over 150 PRE MEAL blood sugar) ~20 units daily Joi Looney MA June 25, 2024 11:06 AM [facility]02-27-2025 Miscellaneous Notes* Telephone Encounter - Joi Looney MA - 06/25/2024 11:03 AM EST Prescription Refill Information The patient has been identified by name and date of : Yes Caregiver verified no other encounters exist for this prescription request: Yes Caregiver confirmed with patient/requestor that no other refills are due, in the near future, with this provider at this time: Yes The last office visit in the department: 03/25/24 Does the patient have a future office visit with this provider/department: Yes Requested Prescriptions Pending Prescriptions Disp Refills insulin lispro (HUMALOG KWIKPEN INSULIN) 100 unit/mL 27 mL 3 Sig: Inject 4 units with meals PLUS sliding scale #1 (1 unit for every 50 over 150 PRE MEAL blood sugar) ~20 units daily Joi Looney MA June 25, 2024 11:06 AM documented in this encounterSumma Health02-05-2025 NoteHNO ID: [id number] Author: FELIX BILL MD Service: ? Author Type: Physician Type: Progress Notes Filed: 06/28/2024 12:21 Note Text: This note was created using Zuldiriter. Subjective Vidal Kay is a 79 year old male. He was doing well. 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 He was on surveillance by Dr. Marco Yousif. Ulcerative colitis was controlled on mesalamine. Diabetes was controlled. Proteinuria increased. Review of Systems Constitutional: Negative for fatigue and fever. Respiratory: Negative for shortness of breath. Cardiovascular: Negative for chest pain and leg swelling. Genitourinary: Negative for difficulty urinating, dysuria and hematuria. 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) Other Proteinuria Hypoalbuminemia Coronary Artery Disease Involving [place] Coronary Artery of [place] Heart Without Angina Pectoris Waldenstrom Macroglobulinemia Aortic Valve Replaced S/P Cabg X 2 Social History Tobacco Use Smoking status: Former Types: Pipe, Cigarettes Smokeless tobacco: Current Types: Chew Tobacco comments: 20 years cigs till 1979, pipe till Vaping Use Vaping status: Never Used Substance Use Topics Alcohol use: Not Currently Drug use: Never Current Outpatient Medications Medication Sig Insulin [place], Disposable, (BD ULTRA-FINE VY PEN NEEDLE) 32 gauge x USES 4 per day with insulin injections. FARXIGA 10 mg tablet TAKE 1 TABLET DAILY Blood-Glucose Sensor (DEXCOM G7 SENSOR) rick CHANGE sensor every 10 days. USE FOR CONTINUOUS GLUCOSE MONITORING. INSULIN USE E11.9 flaxseed oil (OMEGA 3 ORAL) Take 1 capsule by mouth once daily. LECITHIN ORAL Take 1 tablet by mouth once daily. ramipril (ALTACE) 5 mg capsule Take 1 capsule by mouth once daily. insulin glargine (LANTUS SOLOSTAR U-100 INSULIN) 100 unit/mL (3 mL) Inject 12 Units subcutaneously daily at bedtime. acetaminophen (TYLENOL) 500 mg tablet Take 500 mg by mouth two times a day as needed for pain. aspirin, enteric coated (ASPIRIN, ENTERIC COATED) 81 mg EC tablet Take 81 mg by mouth once daily. metoprolol tartrate, short acting, (LOPRESSOR) 25 mg tablet Take 25 mg by mouth two times a day. rosuvastatin (CRESTOR) 40 mg tablet Take 40 mg by mouth once daily. insulin lispro (HUMALOG KWIKPEN INSULIN) 100 unit/mL Inject 4 units with meals PLUS sliding scale #1 (1 unit for every 50 over 150 PRE MEAL blood sugar) ~20 units daily OTC PRODUCT Shaklee Iron: Take two tablets by mouth once daily. Blood-Glucose Meter,Continuous (DEXCOM G7 HOME HEALTH NURSE LICENSED PRACTICAL) [facility] [place] Dispense one lifter/driver USE FOR CONTINUOUS GLUCOSE MONITORING. INSULIN USE E11.9 lancets (ONE TOUCH DELICA) 33 gauge Test blood sugar(s) 4 times daily. Dx: Other DM Code E11.49 Insulin: Yes Mesalamine (LIALDA) 1.2 gram EC tablet Take 2 tablets by mouth once daily. Per Dr. Jeff Jimenez. VITAMIN C 1,000 MG TAB Take 1,000 mg by mouth once daily. GLUCOSAMINE CHONDROITIN MAXSTR 500 MG-400 MG CAP Take 1 capsule by mouth once daily. MULTIVITAMIN TAB Take 1 tablet by mouth once daily. No current facility-administered medications for this visit. Objective BP 116/50 (BP Site: Left Arm, BP Position: Sitting, BP Cuff Size: Large Adult) Pulse 60 Temp 36.8 ?C (98.3 ?F) (Temporal) Wt 69.2 kg (152 lb 8.9 oz) BMI 24.62 kg/m? Physical Exam Constitutional: Appearance: He is not ill-appearing. Cardiovascular: Rate and Rhythm: Normal rate and regular rhythm. Heart sounds: No murmur heard. Pulmonary: Breath sounds: Normal breath sounds. Musculoskeletal: Right lower leg: No edema. Left lower leg: No edema. Neurological: Mental Status: He is alert. Latest Ref Rng 05/28/2024 Glucose 74 - 99 mg/dL 129 (H) BUN 9 - 24 mg/dL 34 (H) Creatinine 0.73 - 1.22 mg/dL 1.04 Sodium 136 - 144 mmol/L 138 Potassium 3.7 - 5.1 mmol/L 4.7 Chloride 98 - 107 mmol/L 103 CO2 22 - 30 mmol/L 25 Anion Gap 8 - 15 mmol/L 10 Calcium 8.5 - 10.2 mg/dL 9.9 eGFR >=60 mL/min/1.73m? 73 Cholesterol, Total <200 mg/dL 141 Triglyceride <150 mg/dL 47 HDL Cholesterol >39 mg/dL 90 Non HDL Cholesterol <130 mg/dL 51 Fasting Time hrs 11 VLDL Cholesterol <30 mg/dL 9 TC:HDL Ratio <5.10 1.57 LDL Cholesterol <100 mg/dL 42 LDL:HDL Ratio <2.54 0.47 Creatinine, Ur Random (UCRR) 20.0 - 300.0 mg/dL 48.3 Albumin, Urine Random mg/L 263.9 Albumin/Creat Ratio <30 mg/g 546 (H) Hemoglobin A1C 4.3 - 5.6 % 6.8 (H) Estimated Average Glucose mg/dL 148 Legend: (H) High Assessment and Plan 1. Other proteinuria - ICD9: 791.0, ICD10: R80.8 (primary diagnosis) Likely related to WM. - URINALYSIS, WITH MICR (more content not included)...[facility] 06[facility] History of Present illness Narrative* Felix Bill MD - 06/03/2024 11:16 AM EST This note was created using Zuldiriter. Subjective Vidal Kay is a 79 year old male. He was doing well. 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 He was on surveillance by Dr. Marco Yousif. Ulcerative colitis was controlled on mesalamine. Diabetes was controlled. Proteinuria increased. Review of Systems Constitutional: Negative for fatigue and fever. Respiratory: Negative for shortness of breath. Cardiovascular: Negative for chest pain and leg swelling. Genitourinary: Negative for difficulty urinating, dysuria and hematuria. 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) Other Proteinuria Hypoalbuminemia Coronary Artery Disease Involving [place] Coronary Artery of [place] Heart Without Angina Pectoris [place] Macroglobulinemia Aortic Valve Replaced S/P Cabg X 2 Social History Tobacco Use Smoking status: Former Types: Pipe, Cigarettes Smokeless tobacco: Current Types: Chew Tobacco comments: 20 years cigs till 1979, pipe till Vaping Use Vaping status: Never Used Substance Use Topics Alcohol use: Not Currently Drug use: Never Current Outpatient Medications Medication Sig Insulin [place], Disposable, (BD ULTRA-FINE VY PEN NEEDLE) 32 gauge x 5/32 USES 4 per day with insulin injections. FARXIGA 10 mg tablet TAKE 1 TABLET DAILY Blood-Glucose Sensor (DEXCOM G7 SENSOR) rick CHANGE sensor every 10 days. USE FOR CONTINUOUS GLUCOSE MONITORING. INSULIN USE E11.9 flaxseed oil (OMEGA 3 ORAL) Take 1 capsule by mouth once daily. LECITHIN ORAL Take 1 tablet by mouth once daily. ramipril (ALTACE) 5 mg capsule Take 1 capsule by mouth once daily. insulin glargine (LANTUS SOLOSTAR U-100 INSULIN) 100 unit/mL (3 mL) Inject 12 Units subcutaneously daily at bedtime. acetaminophen (TYLENOL) 500 mg tablet Take 500 mg by mouth two times a day as needed for pain. aspirin, enteric coated (ASPIRIN, ENTERIC COATED) 81 mg EC tablet Take 81 mg by mouth once daily. metoprolol tartrate, short acting, (LOPRESSOR) 25 mg tablet Take 25 mg by mouth two times a day. rosuvastatin (CRESTOR) 40 mg tablet Take 40 mg by mouth once daily. insulin lispro (HUMALOG KWIKPEN INSULIN) 100 unit/mL Inject 4 units with meals PLUS sliding scale #1 (1 unit for every 50 over 150 PRE MEAL blood sugar) ~20 units daily OTC PRODUCT [place] Iron: Take two tablets by mouth once daily. Blood-Glucose Meter,Continuous (DEXCOM G7 HOME HEALTH NURSE LICENSED PRACTICAL) [facility] [place] Dispense one lifter/driver USE FOR CONTINUOUS GLUCOSE MONITORING. INSULIN USE E11.9 lancets (ONE TOUCH DELICA) 33 gauge Test blood sugar(s) 4 times daily. Dx: Other DM Code E11.49 Insulin: Yes Mesalamine (LIALDA) 1.2 gram EC tablet Take 2 tablets by mouth once daily. Per Dr. Jeff Jimenez. VITAMIN C 1,000 MG TAB Take 1,000 mg by mouth once daily. GLUCOSAMINE CHONDROITIN MAXSTR 500 MG-400 MG CAP Take 1 capsule by mouth once daily. MULTIVITAMIN TAB Take 1 tablet by mouth once daily. No current facility-administered medications for this visit. Objective BP 116/50 (BP Site: Left Arm, BP Position: Sitting, BP Cuff Size: Large Adult) Pulse 60 Temp 36.8 C (98.3 F) (Temporal) Wt 69.2 kg (152 lb 8.9 oz) BMI 24.62 kg/m Physical Exam Constitutional: Appearance: He is not ill-appearing. Cardiovascular: Rate and Rhythm: Normal rate and regular rhythm. Heart sounds: No murmur heard. Pulmonary: Breath sounds: Normal breath sounds. Musculoskeletal: Right lower leg: No edema. Left lower leg: No edema. Neurological: Mental Status: He is alert. Latest Ref Rng 05/28/2024 Glucose 74 - 99 mg/dL 129 (H) BUN 9 - 24 mg/dL 34 (H) Creatinine 0.73 - 1.22 mg/dL 1.04 Sodium 136 - 144 mmol/L 138 Potassium 3.7 - 5.1 mmol/L 4.7 Chloride 98 - 107 mmol/L 103 CO2 22 - 30 mmol/L 25 Anion Gap 8 - 15 mmol/L 10 Calcium 8.5 - 10.2 mg/dL 9.9 eGFR >=60 mL/min/1.73m 73 Cholesterol, Total <200 mg/dL 141 Triglyceride <150 mg/dL 47 HDL Cholesterol >39 mg/dL 90 Non HDL Cholesterol <130 mg/dL 51 Fasting Time hrs 11 VLDL Cholesterol <30 mg/dL 9 TC:HDL Ratio <5.10 1.57 LDL Cholesterol <100 mg/dL 42 LDL:HDL Ratio <2.54 0.47 Creatinine, Ur Random (UCRR) 20.0 - 300.0 mg/dL 48.3 Albumin, Urine Random mg/L 263.9 Albumin/Creat Ratio <30 mg/g 546 (H) Hemoglobin A1C 4.3 - 5.6 % 6.8 (H) Estimated Average Glucose mg/dL 148 Legend: (H) High Assessment and Plan 1. Other proteinuria - ICD9: 791.0, ICD10: R80.8 (primary diagnosis) Likely related to WM. - URINALYSIS, WITH MICROSCOPIC 2. Primary hypertension - ICD9: 401.9, ICD10: I10 - Controlled 3. Diabetes mellitus type 2 with neurological manifestations (HCC) - ICD9: 250.60, ICD10: E11.49 - Controlled - Continue current medications 4. Ulcerative pancolitis without complication (HCC) - ICD9: 556.6, ICD10: K51.00 - Controlled. Felix Bill MD documented in this encounterSumma Health01-20-2025 Telephone encounter Note * Telephone Encounter - Iyer, Cecelia - 05/18/2024 3:36 PM EST BD VY ULTRA FINE 4MM Prescription Refill Information The patient has been identified by name and date of : Yes Caregiver verified no other encounters exist for this prescription request: Yes Caregiver confirmed with patient/requestor that no other refills are due, in the near future, with this provider at this time: Yes The last office visit in the department: 03/25/24 Does the patient have a future office visit with this provider/department: Yes 10/21/24 Requested Prescriptions Pending Prescriptions Disp Refills Insulin [place], Disposable, (BD ULTRA-FINE VY PEN NEEDLE) 32 gauge x 5/32 400 Each 3 Sig: USES 4 per day with insulin injections. Cecelia Iyer May 18, 2024 3:38 PM [facility]01-20-2025 Miscellaneous Notes* Telephone Encounter - Cecelia Iyer - 05/18/2024 3:36 PM EST BD VY ULTRA FINE 4MM Prescription Refill Information The patient has been identified by name and date of : Yes Caregiver verified no other encounters exist for this prescription request: Yes Caregiver confirmed with patient/requestor that no other refills are due, in the near future, with this provider at this time: Yes The last office visit in the department: 03/25/24 Does the patient have a future office visit with this provider/department: Yes 10/21/24 Requested Prescriptions Pending Prescriptions Disp Refills Insulin [place], Disposable, (BD ULTRA-FINE VY PEN NEEDLE) 32 gauge x 5/32 400 Each 3 Sig: USES 4 per day with insulin injections. Cecelia Iyer May 18, 2024 3:38 PM documented in this encounterSumma Health11-27-2024 Telephone encounter Note * Telephone Encounter - Mario Alberto Echavarria RN - 03/25/2024 3:15 PM EST Updated [place] clinical [place] [facility] [place]'s [place] for Dexcom G7 sensors.Fax confirmation received. Mario Alberto Echavarria RN March 25, 2024 3:23 PM [facility]11-27-2024 Miscellaneous Notes* Telephone Encounter - Mario Alberto Echavarria RN - 03/25/2024 3:15 PM EST Updated [place] clinical chart [place] [facility] [place]'s [place] for Dexcom G7 sensors.Fax confirmation received. Mario Alberto Echavarria RN March 25, 2024 3:23 PM documented in this encounterSumma Health11-27-2024 NoteHNO ID: [id number] Author: MARIO ALBERTO ECHAVRARIA RN Service: ? Author Type: Registered Nurse Type: Progress Notes Filed: 03/25/2024 15:12 Note Text:[facility]11-27-2024 History of Present illness Narrative* Mario Alberto Echavarria RN - 03/25/2024 3:07 PM EST Images from the original note were not included. * Lise iRchter APRN.ABRAM - 03/25/2024 2:45 PM EST Images from the original note were not included. OFFICE VISIT PROGRESS NOTE CC Vidal Kay is a 79 year old who presents today for blood sugar review. HPI Diagnosed with diabetes mellitus type II, ~ ~1991 Last endocrine OV 07/03/2023 Some elements copied from my note 07/03/2023 which have been updated where appropriate, and all reflect current medical decision making from date of this visit. HPI 03/25/2024 Sts is doing well Is exercising regularly Using meds as per below Using DEXCOM CGM Patient is compliant with CGM use and is benefiting from sensor use. Has had 2 sensors fail CURRENT DM MEDS FARXIGA 10 mg 1 tab daily LANTUS 12 units daily HUMALOG 4-4-4 plus S#1 SMBG Type of Monitor: Other DEXCOM G7 Patient is compliant with CGM use and is benefiting from sensor use. Frequency of Monitorin times a day Patient is compliant with CGM use and is benefiting from sensor use. 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, gazelle 15 minutes, weights//curls/shoulders DM REVIEW OF SYSTEMS Last Eye Exam : yearly Last Podiatry Exam: Cardiorespiratory: negative, denies chest pain, pressure Claudication: no Dyslipidemia: No High Blood Pressure: No CURRENT LABS Recent Labs 03/09/21 0820 06/09/21 0740 02/27/22 0813 06/08/22 0809 10/08/22 1533 10/12/22 1211 12/11/22 0847 12/18/22 1151 01/22/23 0801 05/23/23 1259 07/03/23 0959 ALT -- < > -- -- < > -- 16 -- 12 27 -- AST -- < > -- -- < > -- 15 -- 13* 34 -- UCRR 154.7 -- 96.7 -- -- -- 57.1 -- -- -- -- UALBR 241.8 -- 95.1 -- -- -- 129.7 -- -- -- -- UALBCR 156* -- 98* -- -- -- 227* -- -- -- -- TPROT -- < > -- -- < > -- 8.6* 8.6* 7.7 8.5* 8.8* -- ALB -- < > -- -- < > -- 3.6* -- 3.3* 3.5* -- CA 9.9 < > -- -- < > -- 9.7 -- 8.9 9.8 -- TBILI -- < > -- -- < > -- 0.2 -- 0.2 0.3 -- ALKPHOS -- < > -- -- < > -- 109 -- 100 137* -- GLUC 89 < > -- -- < > -- 109* -- 119* 212* -- BUN 18 < > -- -- < > -- 21 -- 29* 32* -- CREAT 0.81 < > -- -- < > -- 0.97 -- 0.77 0.79 -- NA 139 < > -- -- < > -- 135* -- 135* 134* -- K 4.2 < > -- -- < > -- 5.0 -- 4.6 4.1 -- CHLOR 103 < > -- -- < > -- 99 -- 101 95* -- CO2 27 < > -- -- < > -- 24 -- 25 27 -- ANION 9 < > -- -- < > -- 12 -- 9 12 -- EGFROTH >60 < > -- -- < > -- 80 -- 92 91 -- HBA1C 8.4* < > -- 7.3* -- -- 8.0* -- -- -- 7.3* B12 -- -- -- -- -- 734 -- -- -- 765 -- < > = values in this interval not displayed. Recent Labs 03/09/21 0820 06/09/21 0740 12/07/21 0813 02/27/22 0805 06/08/22 0809 10/12/22 1211 12/11/22 0847 05/23/23 1259 07/03/23 0959 TG 67 -- 41 -- -- -- 47 -- -- CHOL 198 -- 161 -- -- -- 157 -- -- HDL 70 -- 74 -- -- -- 66 -- -- VLDL 13 -- 8 -- -- -- 9 -- -- LDL 115* -- 79 -- -- -- 82 -- -- FASTTIME 12 -- 13 -- -- -- 12 -- -- TCHDL 2.83 -- 2.18 -- -- -- 2.38 -- -- LDLHDL 1.64 -- 1.07 -- -- -- 1.24 -- -- NONHDL 128 -- 87 -- -- -- 91 -- -- HBA1C 8.4* < > 7.3* 7.0* 7.3* -- 8.0* -- 7.3* HBA0 194 < > 163 154 163 -- 183 -- -- B12 -- -- -- -- -- 734 -- 765 -- < > = values in this interval not displayed. 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 Hurtado, [facility] PAST SURGICAL HISTORY Procedure Laterality Date CABG (2) VEIN GRAFTS & ARTERIAL GRAFT(S 02/28/2023 COLONOSCOPY FLX DX W/COLLJ SPEC WHEN PFRMD 03/11/1995 Colonoscopy COLONOSCOPY FLX DX W/COLLJ SPEC WHEN PFRMD 07/12/2008 Colonoscopy COLONOSCOPY FLX DX W/COLLJ SPEC WHEN PFRMD 05/16/2015 Colonoscopy COLONOSCOPY FLX DX W/COLLJ SPEC WHEN PFRMD 06/08/2019 Colonoscopy COLONOSCOPY W/BIOPSY SINGLE/MULTIPLE 02/28/2006 LEFT HEART CATH,PERCUTANEOUS 02/13/2023 NEUROPLASTY &/TRANSPOS MEDIAN NRV CARPAL TUNNE 1992 Carpal tunnel decomp, bilateral REPL AORTIC VALVE W/BYP 02/28/2023 Edward Magna Bioprosthetic SIGMOIDOSCOPY FLX DX W/COLLJ SPEC BR/WA IF PFRMD 04/08/2009 SIGMOIDOSCOPY FLX DX W/COLLJ SPEC BR/WA IF PFRMD 06/23/2015 Sigmoidoscopy, flexible FAMILY HISTORY Problem Relation Age of Onset Diabetes Mother 55 CAD Coronary Artery Disease Mother Diabetes Father CAD Coronary Artery Disease Father 55 CABG Breast Cancer Sister Breast Cancer Daughter Social History Tobacco Use Smoking status: Former Types: Pipe, Cigarettes Smokeless tobacco: Current Types: Chew Tobacco comments: 20 years cigs till 1979, pipe till Vaping Use Vaping status: Never Used Substance Use Topics Alcohol use: Not Currently Drug use: Never Current Outpatient Medications Medication Sig ramipril (ALTACE) 5 mg capsule Take 1 capsule by mouth once daily. insulin glargine (LANTUS SOLOSTAR U-100 INSULIN) 100 unit/mL (3 mL) Inject 12 Units subcutaneously daily at bedtime. dapagliflozin propanediol (FARXIGA) 10 mg tablet Take 1 tablet by mouth once daily. Insulin [place], Disposable, (BD ULTRA-FINE VY PEN NEEDLE) 32 gauge x 5/32 USES 4 per day with insulin injections. acetaminophen (TYLENOL) 500 mg tablet Take 500 mg by mouth two times a day. aspirin, enteric coated (ASPIRIN, ENTERIC COATED) 81 mg EC tablet Take 81 mg by mouth once daily. metoprolol tartrate, short acting, (LOPRESSOR) 25 mg tablet Take 25 mg by mouth two times a day. rosuvastatin (CRESTOR) 40 mg tablet insulin lispro (HUMALOG KWIKPEN INSULIN) 100 unit/mL Inject 4 units with meals PLUS sliding scale #1 (1 unit for every 50 over 150 PRE MEAL blood sugar) ~20 units daily Blood-Glucose Sensor (DEXCOM G7 SENSOR) rick CHANGE sensor every 10 days. USE FOR CONTINUOUS GLUCOSE MONITORING. INSULIN USE E11.9 OTC PRODUCT [place] Iron: Take two tablets by mouth once daily. Blood-Glucose Meter,Continuous (DEXCOM G7 HOME HEALTH NURSE LICENSED PRACTICAL) [facility] [place] Dispense one lifter/driver USE FOR CONTINUOUS GLUCOSE MONITORING. INSULIN USE E11.9 lancets (ONE TOUCH DELICA) 33 gauge Test blood sugar(s) 4 times daily. Dx: Other DM Code E11.49 Insulin: Yes Mesalamine (LIALDA) 1.2 gram EC tablet Take 2 tablets by mouth once daily. Per Dr. Aguilar Friend. VITAMIN C 1,000 MG TAB Take one(1) tablet daily. GLUCOSAMINE CHONDROITIN MAXSTR 500 MG-400 MG CAP Take 1 capsule by mouth once daily. MULTIVITAMIN TAB Take one(1) tablet daily. No current facility-administered medications for this visit. ALLERGIES No Known Allergies REVIEW OF SYSTEMS - POSITIVES IN BOLD GENERAL:No weight loss, malaise or fevers HEENT:Negative for frequent or significant headaches, No changes in hearing or vision, no nose bleeds or other nasal problems NECK:Negative for lumps, goiter, pain and significant neck swelling RESPIRATORY: Negative for cough, hemoptysis, wheezing, COPD, dyspnea or shortness of breath CARDIOVASCULAR: Negative for chest pain, leg swelling, hypertension, CHF or palpitations PHYSICAL EXAMINATION: BP 138/52 (BP Site: Right Arm, BP Position: Sitting, BP Cuff Size: Regular Adult) Pulse 64 Resp18 Ht 167.6 cm (5' 6) Wt 72 kg (158 lb 12.8 oz) SpO2 96% BMI 25.63 kg/m GENERAL: alert and appropriate, in no distress and well-hydrated, well nourished SKIN: no rash noted HEAD: normocephalic, no abnormality or lesion noted EYES: PERRL NECK: full ROM, no cervical LNs noted ACANTHOSIS: none noted EXTREMITIES: normal NEUROLOGIC: no obvious deficit ASSESSMENT/PLAN (E11.65) Poorly controlled type 2 diabetes mellitus (HCC) (primary encounter diagnosis) Comment: CGM DOWNLOADED AND REVIEWED FOR OV RECOMMENDATION PER REVIEW FOLLOWS Patient is compliant with CGM use and is benefiting from sensor use. Latest Ref Rng 07/03/2023 03/25/2024 Hemoglobin A1C (POCT) 4.3 - 5.6 % 7.3 ! 6.8 ! Excellent control per current prandial/basal insulin and Farxiga 10 mg tab No changes to medication/insulin dosing today Recommended diet: Low carbohydrate and Low saturated fat, low simple sugar, high fiber diet Exercise minimally 150 minutes per week, increase as tolerated. Adequate hydration - 1/2 body wgt in oz of water daily, unless fluid restriction applies. I instructed the patient to monitor blood sugars 3 times per day If blood sugars are persistently high or low, to call our office. Patient to continue to follow up with his PCP and with other consultants regarding his other medical problems. Plan: COMPREHENSIVE METABOLIC PANEL, LIPID PANEL, NONFASTING, ALBUMIN/CREATININE RATIO, URINE, HEMOGLOBIN A1C Lise Richter CNP documented in this encounterSumma Health11-27-2024 NoteHNO ID: [id number] Author: LISE RICHTER APRN.ABRAM Service: ? Author Type: Nurse Practitioner Type: Progress Notes Filed: 03/25/2024 15:12 Note Text: OFFICE VISIT PROGRESS NOTE CC Vidal Kay is a 79 year old who presents today for blood sugar review. HPI Diagnosed with diabetes mellitus type II, ~ ~1991 Last endocrine OV 07/03/2023 Some elements copied from my note 07/03/2023 which have been updated where appropriate, and all reflect current medical decision making from date of this visit. HPI 03/25/2024 Sts is doing well Is exercising regularly Using meds as per below Using DEXCOM CGM Patient is compliant with CGM use and is benefiting from sensor use. Has had 2 sensors fail CURRENT DM MEDS FARXIGA 10 mg 1 tab daily LANTUS 12 units daily HUMALOG 4-4-4 plus S#1 SMBG Type of Monitor: Other DEXCOM G7 Patient is compliant with CGM use and is benefiting from sensor use. Frequency of Monitorin times a day Patient is compliant with CGM use and is benefiting from sensor use. 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, gazelle 15 minutes, weights//curls/shoulders DM REVIEW OF SYSTEMS Last Eye Exam : yearly Last Podiatry Exam: Cardiorespiratory: negative, denies chest pain, pressure Claudication: no Dyslipidemia: No High Blood Pressure: No CURRENT LABS Recent Labs 03/09/21 0820 06/09/21 0740 02/27/22 0813 06/08/22 0809 10/08/22 1533 10/12/22 1211 12/11/22 0847 12/18/22 1151 01/22/23 0801 05/23/23 1259 07/03/23 0959 ALT -- < > -- -- < > -- 16 -- 12 27 -- AST -- < > -- -- < > -- 15 -- 13* 34 -- UCRR 154.7 -- 96.7 -- -- -- 57.1 -- -- -- -- UALBR 241.8 -- 95.1 -- -- -- 129.7 -- -- -- -- UALBCR 156* -- 98* -- -- -- 227* -- -- -- -- TPROT -- < > -- -- < > -- 8.6* 8.6* 7.7 8.5* 8.8* -- ALB -- < > -- -- < > -- 3.6* -- 3.3* 3.5* -- CA 9.9 < > -- -- < > -- 9.7 -- 8.9 9.8 -- TBILI -- < > -- -- < > -- 0.2 -- 0.2 0.3 -- ALKPHOS -- < > -- -- < > -- 109 -- 100 137* -- GLUC 89 < > -- -- < > -- 109* -- 119* 212* -- BUN 18 < > -- -- < > -- 21 -- 29* 32* -- CREAT 0.81 < > -- -- < > -- 0.97 -- 0.77 0.79 -- NA 139 < > -- -- < > -- 135* -- 135* 134* -- K 4.2 < > -- -- < > -- 5.0 -- 4.6 4.1 -- CHLOR 103 < > -- -- < > -- 99 -- 101 95* -- CO2 27 < > -- -- < > -- 24 -- 25 27 -- ANION 9 < > -- -- < > -- 12 -- 9 12 -- EGFROTH >60 < > -- -- < > -- 80 -- 92 91 -- HBA1C 8.4* < > -- 7.3* -- -- 8.0* -- -- -- 7.3* B12 -- -- -- -- -- 734 -- -- -- 765 -- < > = values in this interval not displayed. Recent Labs 03/09/21 0820 06/09/21 0740 12/07/21 0813 02/27/22 0805 06/08/22 0809 10/12/22 1211 12/11/22 0847 05/23/23 1259 07/03/23 0959 TG 67 -- 41 -- -- -- 47 -- -- CHOL 198 -- 161 -- -- -- 157 -- -- HDL 70 -- 74 -- -- -- 66 -- -- VLDL 13 -- 8 -- -- -- 9 -- -- LDL 115* -- 79 -- -- -- 82 -- -- FASTTIME 12 -- 13 -- -- -- 12 -- -- TCHDL 2.83 -- 2.18 -- -- -- 2.38 -- -- LDLHDL 1.64 -- 1.07 -- -- -- 1.24 -- -- NONHDL 128 -- 87 -- -- -- 91 -- -- HBA1C 8.4* < > 7.3* 7.0* 7.3* -- 8.0* -- 7.3* HBA0 194 < > 163 154 163 -- 183 -- -- B12 -- -- -- -- -- 734 -- 765 -- < > = values in this interval not displayed. 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 Hurtado, [facility] PAST SURGICAL HISTORY Procedure Laterality Date CABG (2) VEIN GRAFTS AND ARTERIAL GRAFT(S 02/28/2023 COLONOSCOPY FLX DX W/COLLJ SPEC WHEN PFRMD 03/11/1995 Colonoscopy COLONOSCOPY FLX DX W/COLLJ SPEC WHEN PFRMD 07/12/2008 Colonoscopy COLONOSCOPY FLX DX W/COLLJ SPEC WHEN PFRMD 05/16/2015 Colonoscopy COLONOSCOPY FLX DX W/COLLJ SPEC WHEN PFRMD 06/08/2019 Colonoscopy COLONOSCOPY W/BIOPSY SINGLE/MULTIPLE 02/28/2006 LEFT HEART CATH,PERCUTANEOUS 02/13/2023 NEUROPLASTY AND/TRANSPOS MEDIAN NRV CARPAL TUNNE 1992 Carpal tunnel decomp, bilateral REPL AORTIC VALVE W/BYP 02/28/2023 Edward Magna Bioprosthetic SIGMOIDOSCOPY FLX DX W/COLLJ SPEC BR/WA IF PFRMD 04/08/2009 SIGMOIDOSCOPY FLX DX W/COLLJ SPE (more content not included)...[facility]09-17-2024 Telephone encounter Note* Telephone Encounter - Aviva Arreola - 01/14/2024 8:02 AM EDT Prescription Refill Information The patient has been identified by name and date of : Yes Caregiver verified no other encounters exist for this prescription request: Yes Caregiver confirmed with patient/requestor that no other refills are due, in the near future, with this provider at this time: Yes The last office visit in the department: 09-16-23 Does the patient have a future office visit with this provider/department: Yes Requested Prescriptions Pending Prescriptions Disp Refills ramipril (ALTACE) 5 mg capsule 90 capsule 1 Sig: Take 1 capsule by mouth once daily. Aviva Arreola January 14, 2024 8:03 AM [facility]09-17-2024 Miscellaneous Notes* Telephone Encounter - Aviva Arreola - 01/14/2024 8:02 AM EDT Prescription Refill Information The patient has been identified by name and date of : Yes Caregiver verified no other encounters exist for this prescription request: Yes Caregiver confirmed with patient/requestor that no other refills are due, in the near future, with this provider at this time: Yes The last office visit in the department: 09-16-23 Does the patient have a future office visit with this provider/department: Yes Requested Prescriptions Pending Prescriptions Disp Refills ramipril (ALTACE) 5 mg capsule 90 capsule 1 Sig: Take 1 capsule by mouth once daily. Aviva Arreola January 14, 2024 8:03 AM documented in this encounterSum[facility] Health08-26-2024 Telephone encounter Note * Telephone Encounter - Asha Hunt MA - 12/23/2023 3:25 PM EDT Faxed OV notes to [facility] to complete patients CGM order. Received confirmation and filed with rest of [facility] orders. Asha Hunt MA [facility]08-26-2024 Miscellaneous Notes* Telephone Encounter - Asha Hunt MA - 12/23/2023 3:25 PM EDT Faxed OV notes to [facility] to complete patients CGM order. Received confirmation and filed with rest of [facility] orders. Asha Hunt MA documented in this encounterSumma Health08-05-2024 History of Present illness Narrative* Felix Bill MD - 12/02/2023 12:28 PM EDT This note was created using Zuldiriter. Subjective Vidal Kay is a 78 year old male was here overdue follow up. He ended up having CABG and AVR 2022. He started chemo with Rituxan and IV iron infusions for anemia. He was doing much better from last year. He just had cataract surgery with good results. Review of Systems Constitutional: Negative for fatigue, fever and unexpected weight change. Respiratory: Negative for cough and shortness of breath. Cardiovascular: Negative for chest pain, palpitations and leg swelling. Gastrointestinal: Negative for abdominal pain, constipation and diarrhea. Genitourinary: Negative for difficulty urinating. Neurological: Negative for dizziness and headaches. Psychiatric/Behavioral: Negative. 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) Other Proteinuria Hypoalbuminemia Coronary Artery Disease Involving [place] Coronary Artery of [place] Heart Without Angina Pectoris Waldenstrom Macroglobulinemia (Hcc) Aortic Valve Replaced S/P Cabg X 2 Social History Tobacco Use Smoking status: Former Types: Pipe, Cigarettes Smokeless tobacco: Current Types: Chew Tobacco comments: 20 years cigs till 1979, pipe till Vaping Use Vaping Use: Never used Substance Use Topics Alcohol use: Not Currently Drug use: Never Current Outpatient Medications Medication Sig insulin glargine (LANTUS SOLOSTAR U-100 INSULIN) 100 unit/mL (3 mL) Inject 12 Units subcutaneously daily at bedtime. ramipril (ALTACE) 5 mg capsule Take 1 capsule by mouth once daily. dapagliflozin propanediol (FARXIGA) 10 mg tablet Take 1 tablet by mouth once daily. Insulin [place], Disposable, (BD ULTRA-FINE VY PEN NEEDLE) 32 gauge x /32 USES 4 per day with insulin injections. acetaminophen (TYLENOL) 500 mg tablet Take 500 mg by mouth two times a day. aspirin, enteric coated (ASPIRIN, ENTERIC COATED) 81 mg EC tablet Take 81 mg by mouth once daily. metoprolol tartrate, short acting, (LOPRESSOR) 25 mg tablet Take 25 mg by mouth two times a day. rosuvastatin (CRESTOR) 40 mg tablet insulin lispro (HUMALOG KWIKPEN INSULIN) 100 unit/mL Inject 4 units with meals PLUS sliding scale #1 (1 unit for every 50 over 150 PRE MEAL blood sugar) ~20 units daily Blood-Glucose Sensor (DEXCOM G7 SENSOR) rick CHANGE sensor every 10 days. USE FOR CONTINUOUS GLUCOSE MONITORING. INSULIN USE E11.9 OTC PRODUCT [place]lee Iron: Take two tablets by mouth once daily. Blood-Glucose Meter,Continuous (DEXCOM G7 HOME HEALTH NURSE LICENSED PRACTICAL) [facility] [place] Dispense one lifter/driver USE FOR CONTINUOUS GLUCOSE MONITORING. INSULIN USE E11.9 lancets (ONE TOUCH DELICA) 33 gauge Test blood sugar(s) 4 times daily. Dx: Other DM Code E11.49 Insulin: Yes Mesalamine (LIALDA) 1.2 gram EC tablet Take 2 tablets by mouth once daily. Per Dr. Aguilar Friend. VITAMIN C 1,000 MG TAB Take one(1) tablet daily. GLUCOSAMINE CHONDROITIN MAXSTR 500 MG-400 MG CAP Take 1 capsule by mouth once daily. MULTIVITAMIN TAB Take one(1) tablet daily. No current facility-administered medications for this visit. Objective BP 114/56 (BP Site: Left Arm, BP Position: Sitting, BP Cuff Size: Regular Adult) Pulse 64 Temp 36.9 C (98.5 F) Resp 12 Ht 167.6 cm (5' 6) Wt 63.5 kg (140 lb) SpO2 97% BMI 22.60 kg/m Physical Exam Constitutional: General: He is not in acute distress. Appearance: He is not ill-appearing. HENT: Head: Normocephalic. Eyes: General: No scleral icterus. Conjunctiva/sclera: Conjunctivae normal. Cardiovascular: Rate and Rhythm: Normal rate and regular rhythm. Heart sounds: No murmur heard. No gallop. Pulmonary: Breath sounds: Normal breath sounds. Abdominal: General: There is no distension. Palpations: Abdomen is soft. Tenderness: There is no abdominal tenderness. Musculoskeletal: Right lower leg: No edema. Left lower leg: No edema. Neurological: Mental Status: He is alert. Feet:Shoes and socks removed, No deformities, ulcers, calluses, abnormal pulses Decreased bilaterally, and sensitive to 10 gm monofilament Assessment and Plan 1. Medicare annual wellness visit, subsequent - ICD9: V70.0, ICD10: Z00.00 (primary diagnosis) See other note. 2. Screening for depression - ICD9: V79.0, ICD10: Z13.31 Neg. - DEPRESSION SCREENING 3. Encounter for screening examination for other mental health and behavioral disorders - ICD9: V79.8, ICD10: Z13.39 Neg. - ANXIETY SCREENING 4. Coronary artery disease involving [place] coronary artery of [place] heart without angina pectoris- ICD9: 414.01, ICD10: I25.10 Stable. 5. Hyperlipidemia, unspecified hyperlipidemia type - ICD9: 272.4, ICD10: E78.5 - Control undetermined, due for labs - Continue medication. 6. Primary hypertension - ICD9: 401.9, ICD10: I10 - Controlled - Continue medication. 7. Diabetes mellitus type 2 with neurological manifestations (HCC) - ICD9: 250.60, ICD10: E11.49 - Controlled - Continue current medications - BASIC METABOLIC PANEL - HEMOGLOBIN A1C - LIPID PANEL BASIC - ALBUMIN/CREATININE RATIO, URINE 8. Waldenstrom macroglobulinemia (HCC) - ICD9: 273.3, ICD10: C88.[address] Hurtado. 9. Aortic valve replaced - ICD9: V43.3, ICD10: Z95.2 Doing well. Followed by cardiology. 10. S/P CABG x 2 - ICD9: V45.81, ICD10: Z95.1 Doing well. Followed by cardiology. Felix Bill MD * Felix Bill MD - 12/02/2023 12:20 PM EDT Images from the original note were not included. Vidal Kay is a 78 year old male here for a Medicare wellness visit. Medicare Health Risk Assessment General Health Good Exercise: Minutes/Day 60 min Exercise: Days/Week 5 days Alcohol: Daily Use Never Alcohol: Drinks/Day Patient does not drink Alcohol: 6 or more drinks Never Feel off balance No Concerns: Teeth/Dentures No Concerns: Sexual function No Troubled by feelings Irritable Frequency: Eating healthy diet Nearly every day ADLs requiring help None of the above Safety precautions in home/vehicle Yes Smoke, vape, chews tobacco Yes, but I'm not ready to quit Difficulty hearing No Difficulty seeing No Current Providers Specialists: I have reviewed specialist-related care of the patient in the medical record. Current care team: Patient Care Team: Felix Bill MD as PCP - General (Internal Medicine) Outside specialists seen: Marco Hurtado MD, Oncology. Chase Baig MD, Cardiology. Mei Jimenez MD, Gastroenterology. Lise Richter APRN, CAMPUS REP, [facility] endocrinology. Katerine Montanez OD, Optometry Arturo Granados MD, Ophthalmology. Medical/Family history review Reviewed and updated problem list, medical/surgical/family/social history, medications, and allergies. Opioid use review Opioid Medications (last 90 days) No data to display Anxiety/Depression screening PHQ-2 Score: 0 (Lower risk for depression) KEELY-2 Score: 0 (Lower risk for anxiety) Recommendation: no further intervention at this time Cognitive screening Mini Cog Score: 5 Cognitive screening reviewed and No further action needed (score 3-5). Functional Observation Was the patient's Timed Up & Go test unsteady or ? 12 seconds? No Advance Care Planning Patient was not able to provide a surrogate decision maker or written advance directives Measurements BP 114/56 (BP Site: Left Arm, BP Position: Sitting, BP Cuff Size: Regular Adult) Pulse 64 Temp 36.9 C (98.5 F) Resp 12 Ht 167.6 cm (5' 6) Wt 63.5 kg (140 lb) SpO2 97% BMI 22.60 kg/m Vision Screening: Follows with optometry/ophthalmology Assessment/Plan Medicare annual wellness visit, subsequent (Z00.00) - Counseled on healthy diet and regular exercise - Fall avoidance information provided - Personalized prevention plan provided - Chewing tobacco cessation encouraged; discussed risks to health and quitting strategies. Patient is not ready to quit documented in this encounterSumma Health08-05-2024 Instructions* Patient Instructions* Felix Bill MD - 12/02/2023 12:20 PM EDT Screening schedule The following prevention plan is recommended: Depression Screening Never done Anxiety Screening Never done Diabetic Foot Exam due on 03/06/2023 Advance Directive Discussion due on 04/29/2023 Urine Albumin:Creatinine Ratio due on 12/12/2023 LDL Cholesterol due on 12/12/2023 WHAT YOU CAN DO TO PREVENT FALLS Many falls can be prevented. By making some changes, you can lower your chances of falling. Four things YOU can do to prevent falls for you* and your caregiver 1. Begin a regular exercise program Exercise is one of the most important ways to lower your chances of falling. It makes you stronger and helps you feel better. Exercises that improve balance and coordination (like Percy Chi) are the most helpful. Lack of exercise leads to weakness and increases your chances of falling. Ask your doctor or health care provider about the best type of exercise program for you. 2. Have your health care provider review your medicines Have your doctor or pharmacist review all the medicines you take, even [id number] medicines. As you get older, the way medicines work in your body can change. Some medicines, or combinations of medicines, can make you sleepy or dizzy andcan cause you to fall. 3. Have your vision checked Have your eyes checked by an eye doctor at least once a year. You may be wearing the wrong glasses or have a condition like glaucoma or cataracts that limits your vision. Poor vision can increase your chances of falling. 4. Make your home safer About half of all falls happen at home. To make your home safer: Remove things you can trip over (like papers, books, clothes, and shoes) from stairs and places where you walk. Remove small throw rugs or use double-sided tape to keep the rugs from slipping. Keep items you use often in cabinets you can reach easily without using a step stool. Have grab bars put in next to your toilet and in the tub or shower. Use non-slip mats in the bathtub and on shower floors. Improve the lighting in your home. As you get older, you need brighter lights to see well. Hang light-weight curtains or shades to reduce glare. Have handrails and lights put in on all staircases. Wear shoes both inside and outside the house. Avoid going barefoot or wearing slippers. For more information, contact: Centers for Disease Control and Prevention www.cdc.gov/injury * This information may not apply if you have certain medical conditions. documented in this encounterSumma Health04-22-2024 Telephone encounter Note * Telephone Encounter - Nancy Farooq LPN - 08/19/2023 12:21 PM EDT Patient has been identified by name and date of : Yes Patient phones for refill(s): Requested Prescriptions Pending Prescriptions Disp Refills insulin glargine (LANTUS SOLOSTAR U-100 INSULIN) 100 unit/mL (3 mL) Sig: Inject 12 Units subcutaneously daily at bedtime. Date of last office visit in primary care: 12/18/2022 Date of next office visit in primary care: 12/02/2023 Please advise. Thank you. Nancy Farooq LPN. [facility]04-22-2024 Miscellaneous Notes* Telephone Encounter - Nancy Farooq LPN - 08/19/2023 12:21 PM EDT Patient has been identified by name and date of : Yes Patient phones for refill(s): Requested Prescriptions Pending Prescriptions Disp Refills insulin glargine (LANTUS SOLOSTAR U-100 INSULIN) 100 unit/mL (3 mL) Sig: Inject 12 Units subcutaneously daily at bedtime. Date of last office visit in primary care: 12/18/2022 Date of next office visit in primary care: 12/02/2023 Please advise. Thank you. Nancy Farooq LPN. * Telephone Encounter - Twila Baires - 08/19/2023 12:18 PM EDT Patient has been identified by name and date of : Yes Requested Prescriptions Pending Prescriptions Disp Refills insulin glargine (LANTUS SOLOSTAR U-100 INSULIN) 100 unit/mL (3 mL) Sig: Inject 12 Units subcutaneously daily at bedtime. RX INSTRUCTIONS: Med update was only done in June. Will need script sent to local pharmacy Patient aware RX will be sent to pharmacy. No need to notify patient. Twila Baires documented in this encounterSumma Health04-22-2024 Telephone encounter Note * Telephone Encounter - Twila Baires - 08/19/2023 12:18 PM EDT Patient has been identified by name and date of : Yes Requested Prescriptions Pending Prescriptions Disp Refills insulin glargine (LANTUS SOLOSTAR U-100 INSULIN) 100 unit/mL (3 mL) Sig: Inject 12 Units subcutaneously daily at bedtime. RX INSTRUCTIONS: Med update was only done in June. Will need script sent to local pharmacy Patient aware RX will be sent to pharmacy. No need to notify patient. Twila Baires [facility]04-08-2024 History of Present illness Narrative* Yary Burr MA - 08/05/2023 12:37 PM EDT Images from the original note were not included. POPULATION HEALTH NAVIGATION OUTREACH Action/FYI [employer] Care Gaps Discuss/Due for: Medicare Wellness Felix Bill MD 07/23/23 2:22 PM Note I can just see him for annual medicare wellness and follow up ~ 12/19/23. HCC Score 1.45 CMS-HCC 10: Lymphoma and Other Cancers Small Cell B-Cell Lymphoma, Unspecified Site CMS-HCC 18: Diabetes With Chronic Complications Type 2 Diabetes Mellitus With Hyperglycemia CMS-HCC Diagnosis Score 0.977 CMS-HCC Age and Sex Risk Factor 0.473 Outcome: 1st attempt - Spoke to spouse Scheduled Medicare Wellness Reason for Outreach Care Gap/HCC or Scheduling Wellness Visits Care Gaps due: Medicare Annual Wellness Visit Patient Contacted: Spoke to patient/parent/or legal guardian Patient identified by name and : Yes Care Gap/HCC/Scheduling Wellness actions taken: Patient scheduled/pended labs: Medicare Annual Wellness Visit Updated appointment note HCC related Navigation Signature: Yary Burr MA August 05, 2023 12:38 PM documented in this encounterSumma Health03-21-2024 Miscellaneous Notes* Telephone Encounter - Kendal Hammer MA - 07/18/2023 3:23 PM EDT Sent message to provider for review and to advise. Kendal Hammer MA * Telephone Encounter - Katerine Kilgore - 07/18/2023 12:07 PM EDT Pts calling back Farixga. She talked to [facility]. They told her they think there was ancomputer error. The Pharmacy told her the script has to say Farxiga not the generic name she can get it. Please send new script to [facility] for a 90 day supply. Thank you! * Telephone Encounter - Alyssa Colin - 07/18/2023 11:31 AM EDT Patients called and stated that there insurance will not cover the Farixga. Please advise documented in this encounterSumma Health03-19-2024 Miscellaneous Notes* Telephone Encounter - Yary Jackson - 07/16/2023 8:11 AM EDT Information given to PSS to help with scheduling Yary Jackson MA * Telephone Encounter - Lise Richter APRN.CNP - 07/16/2023 8:02 AM EDT Please call the patient/ Orders are signed for DM EDUCATION and NUTRITION Please help them get scheduled * Telephone Encounter - Tish Cristina - 07/09/2023 12:29 PM EDT Patients calling stating that she is still having problems with nutrition for the patient. Shewould like some type of direction. Please call Lilian agee at [phone] documented in this encounterSumma Health03-12-2024 Miscellaneous Notes* Telephone Encounter - Mario Alberto Echavarria RN - 07/09/2023 9:22 AM EDT Sent MC message to Pt with below notation per Lise Richter CNP. Mario Alberto Echavarria RN July 09, 2023 9:24 AM * Telephone Encounter - Lise Richter APRN.CNP - 07/09/2023 8:06 AM EDT Please call the patient. His antibodies are negative. He is confirmed type 2 DM, this is treated with lifestyle - diet, exercise and medication. documented in this encounterSumma Health03-06-2024 History of Present illness Narrative* Mario Alberto Echavarria RN - 07/03/2023 9:57 AM EST Images from the original note were not included. * Lise Richter APRN.CAMPUS REP - 07/03/2023 9:45 AM EST OFFICE VISIT PROGRESS NOTE CC Vidal Kay is a 78 year old male who presents today for blood sugar review, DM med dose reviewand adjust. HPI Diagnosed with diabetes mellitus type II, ~ ~1991 Last endocrine OV 04/03/2023 Some elements copied from my note 04/03/2023 which have been updated where appropriate, and all reflect current medical decision making from date of this visit. DM Education No Knows how to carb count No - is counting carbs DIETARY HISTORY: - is counting carbs, prepping foods (August 2022) Breakfast: banana, oatmeal w 2 tbsp raisins water 9 coffee) Lunch sandwich, salami or other deli meat and vegetables Dinner venison, salad, carrots and instant potatoes and 2 oatmeal cookies Snacks granola bar (high protein, 16-18 carbs) 1-2 between meals at night will have cottage cheese and sugar free fruit cup[ Drinks water, coffee, coke zero, ice teac Exercise: didi alanis 15 minutes, weights HPI 04/03/23 Had aortic valve replacement and CABG x 2 Nov 5 days hospitalized, then visiting nurse, and PT Feeling much better now, except still a bit of soreness on the l upper chest wall/arm watches dietary carbs for meals Morning sugars are lower, but blood sugars are 250-300 later in day 07/03/2023 No specific diet Eating only 30 carbs per per meal 'but he can't gain weight' CURRENT DM MEDS FARXIGA 10 mg 1 tab daily LANTUS 12 units daily HUMALOG 4-4-4 plus S#1 SMBG Type of Monitor: Other DEXIntraStage G7 Frequency of Monitorin times a day BG Values: Running Values over past week: Highest ; Lowest Hypoglycemia: no Diet: Low carbohydrate 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 DM REVIEW OF SYSTEMS Last Eye Exam : yearly Last Podiatry Exam: Cardiorespiratory: negative, denies chest pain, pressure Claudication: no Dyslipidemia: No High Blood Pressure: No CURRENT LABS No current A1C - IN OFFICE A1C obtained Component Latest Ref Rng & Units 05/23/2023 Protein, Total 6.3 - 8.0 g/dL 8.8 (H) Albumin 3.9 - 4.9 g/dL 3.5 (L) Calcium 8.5 - 10.2 mg/dL 9.8 Bilirubin, Total 0.2 - 1.3 mg/dL 0.3 Alkaline Phosphatase 38 - 113 U/L 137 (H) AST 14 - 40 U/L 34 ALT 10 - 54 U/L 27 Glucose 74 - 99 mg/dL 212 (H) BUN 9 - 24 mg/dL 32 (H) Creatinine 0.73 - 1.22 mg/dL 0.79 Sodium 136 - 144 mmol/L 134 (L) Potassium 3.7 - 5.1 mmol/L 4.1 Chloride 97 - 105 mmol/L 95 (L) CO2 22 - 30 mmol/L 27 Anion Gap 9 - 18 mmol/L 12 eGFR >=60 mL/min/1.73m 91 Vitamin B12 232 - 1,245 pg/mL 765 PAST MEDICAL HISTORY Diagnosis Date Anemia, unspecified 03/01/2006 Aortic stenosis, moderate 10/07/2020 BPH without obstruction/lower urinary tract symptoms 07/31/2006 Coronary artery disease involving [place] coronary artery of [place] heart without angina pectoris 02/17/2023 DM type 2, uncontrolled, with neuropathy 10/21/2015 Hemorrhage of gastrointestinal tract, unspecified Hyperlipidemia Hypertension 01/11/2014 Mitral regurgitation 07/03/2011 Personal history of colonic polyps 07/31/2006 Colonoscopy 28 February 2006 Primary osteoarthritis of right knee 01/28/2018 Snoring Ulcerative colitis (HCC) 01/30/2005 PAST SURGICAL HISTORY Procedure Laterality Date COLONOSCOPY FLX DX W/COLLJ SPEC WHEN PFRMD 03/11/1995 Colonoscopy COLONOSCOPY FLX DX W/COLLJ SPEC WHEN PFRMD 07/12/2008 Colonoscopy COLONOSCOPY FLX DX W/COLLJ SPEC WHEN PFRMD 05/16/2015 Colonoscopy COLONOSCOPY FLX DX W/COLLJ SPEC WHEN PFRMD 06/08/2019 Colonoscopy COLONOSCOPY W/BIOPSY SINGLE/MULTIPLE 02/28/2006 LEFT HEART CATH,PERCUTANEOUS 02/13/2023 NEUROPLASTY &/TRANSPOS MEDIAN NRV CARPAL TUNNE 1992 Carpal tunnel decomp, bilateral PT ED HEART AND VASCULAR 02/28/2023 valve replaceent and double bypass. [facility] SIGMOIDOSCOPY FLX DX W/COLLJ SPEC BR/WA IF PFRMD 04/08/2009 SIGMOIDOSCOPY FLX DX W/COLLJ SPEC BR/WA IF PFRMD 06/23/2015 Sigmoidoscopy, flexible FAMILY HISTORY Problem Relation Age of Onset Diabetes Mother 55 CAD Coronary Artery Disease Mother Diabetes Father CAD Coronary Artery Disease Father 55 CABG Breast Cancer Sister Breast Cancer Daughter Social History Tobacco Use Smoking status: Former Types: Pipe, Cigarettes Smokeless tobacco: Current Types: Chew Tobacco comments: 20 years cigs till 1979, pipe till Vaping Use Vaping Use: Never used Substance Use Topics Alcohol use: Never Drug use: No Current Outpatient Medications Medication Sig Insulin [place], Disposable, (BD ULTRA-FINE VY PEN NEEDLE) 32 gauge x 5/32 USES 4 per day with insulin injections. ASCORBIC ACID-ASCORBATE CALC ORAL Take 1 g by mouth. acetaminophen (TYLENOL) 500 mg tablet aspirin, enteric coated (ASPIRIN, ENTERIC COATED) 81 mg EC tablet Take 81 mg by mouth. furosemide (LASIX) 40 mg tablet Take 40 mg by mouth. (Patient not taking: Reported on 05/23/2023) metoprolol tartrate, short acting, (LOPRESSOR) 25 mg tablet 12.[address] (PROTONIX) 40 mg tablet Take 40 mg by mouth. (Patient not taking: Reported on 05/23/2023) rosuvastatin (CRESTOR) 40 mg tablet insulin lispro (HUMALOG KWIKPEN INSULIN) 100 unit/mL Inject 4 units with meals PLUS sliding scale #1 (1 unit for every 50 over 150 PRE MEAL blood sugar) ~20 units daily Blood-Glucose Sensor (DEXCOM G7 SENSOR) rick CHANGE sensor every 10 days. USE FOR CONTINUOUS GLUCOSE MONITORING. INSULIN USE E11.9 OTC PRODUCT Mariiaee Iron: Take two tablets by mouth once daily. Blood-Glucose Meter,Continuous (DEXCOM G7 HOME HEALTH NURSE LICENSED PRACTICAL) [facility] Dispense one lifter/driver USE FOR CONTINUOUS GLUCOSE MONITORING. INSULIN USE E11.9 blood sugar diagnostic (BLOOD GLUCOSE TEST) test strip TEST BLOOD SUGAR 3 TIMES PER DAY. DX: E11.40. INSULIN DEP: Yes ferrous sulfate 325 mg (65 mg iron) tablet Take 1 tablet by mouth every other day. trimethoprim-polymyxin (POLYTRIM) 10,000 unit- 1 mg/mL ophthalmic solution Use 2 Drops in both eyestwice daily. Use for 7 days. (Patient not taking: Reported on 12/19/2022) insulin glargine (LANTUS SOLOSTAR U-100 INSULIN) 100 unit/mL (3 mL) Inject 15 Units subcutaneously daily at bedtime. ramipril (ALTACE) 5 mg capsule Take 1 capsule by mouth once daily. lancets (ONE TOUCH DELICA) 33 gauge Test blood sugar(s) 4 times daily. Dx: Other DM Code E11.49 Insulin: Yes Mesalamine (LIALDA) 1.2 gram EC tablet Take 2 tablets by mouth once daily. Per Dr. Aguilar Friend. VITAMIN C 1,000 MG TAB Take one(1) tablet daily. GLUCOSAMINE CHONDROITIN MAXSTR 500 MG-400 MG CAP Take by mouth. MULTIVITAMIN TAB Take one(1) tablet daily. No current facility-administered medications for this visit. ALLERGIES No Known Allergies REVIEW OF SYSTEMS - POSITIVES IN BOLD GENERAL:No weight loss, malaise or fevers HEENT:Negative for frequent or significant headaches, No changes in hearing or vision, no nose bleeds or other nasal problems NECK:Negative for lumps, goiter, pain and significant neck swelling RESPIRATORY: Negative for cough, hemoptysis, wheezing, COPD, dyspnea or shortness of breath CARDIOVASCULAR: Negative for chest pain, leg swelling, hypertension, CHF or palpitations PHYSICAL EXAMINATION: BP 108/52 (BP Site: Right Arm, BP Position: Sitting, BP Cuff Size: Regular Adult) Pulse 66 Resp18 Ht 167.6 cm (5' 6) Wt 66.3 kg (146 lb 3.2 oz) SpO2 96% BMI 23.60 kg/m GENERAL: alert and appropriate, in no distress and well-hydrated, well nourished SKIN: no rash noted HEAD: normocephalic, no abnormality or lesion noted EYES: PERRL NECK: full ROM, no cervical LNs noted ACANTHOSIS: none noted EXTREMITIES: normal NEUROLOGIC: no obvious deficit ASSESSMENT: (E11.9, Z79.4) Type 2 diabetes mellitus without complication, with long-term current use of insulin([facility]) (primary encounter diagnosis) Comment: well controlled per A1C patient eats very strict carb diet Struggling with trying to gain weight and keep blood sugar controlled Reports even if eating fruit or higher glycemic vegetable Suspect possible RADHA RULE OUT RADHA - check KEELY and ISLET cell - will send to ENDO MANAGER PERSONAL AWAIT LAB RESULTS for further POC Recommended diet: Low carbohydrate and Low saturated fat, low simple sugar, high fiber diet Exercise minimally 150 minutes per week, increase as tolerated. Adequate hydration - 1/2 body wgt in oz of water daily, unless fluid restriction applies. I instructed the patient to monitor blood sugars 4 times per day If blood sugars are persistently high or low, to call our office. Patient to continue to follow up with his PCP and with other consultants regarding his other medical problems. Plan: HEMOGLOBIN A1C (POC) Plan: HEMOGLOBIN A1C (POC), dapagliflozin propanediol (FARXIGA) 10 mg tablet, GLUTAMIC AC DECARBOXYLASE AB, ISLET CELL AB, insulin glargine (LANTUS SOLOSTAR U-100 INSULIN) 100 unit/mL (3 mL) Lise Richter CNP documented in this encounterSumma Health03-04-2024 Miscellaneous Notes* Telephone Encounter - Kaylynn Gusman LPN - 07/01/2023 11:00 AM EST I spoke with patient's . They want records sent to Dr. Hurtado's office for a second opinion. Records sent. Kaylynn Gusman LPN * Telephone Encounter - Yary Jackson - 07/01/2023 10:17 AM EST Patients phones requesting the referral she dropped off in the office over 7 days ago be faxedto the requested office. She states she knows this has not been completed as she phoned the receiving office and verified. She was not happy that she was speaking to endocrinology and not the direct office of Dr Nguyen, as she walked in the office directly and delivered the paperwork. Yary Jackson MA documented in this encounterSumma Health02-01-2024 Miscellaneous Notes* Telephone Encounter - Sara Mccullough - 05/30/2023 9:19 AM EST Called Patient and mandy as directed Sara Mccullough * Telephone Encounter - Delores Cao RN - 05/29/2023 3:[address] Nguyen reviewed labs on 05/23/23. Results stable. Plan: CBC/ CMP/ IGM/ MONOCLONAL PROTEIN/ PROTEIN ELECTROPHORESIS/ KAPPA/SAM,FREE (SO) in 3mo with OV 1 week after labs with Dr. Nguyen. PSS: please call patient to schedule above Aviva Cao RN documented in this encounterSumma Health01-22-2024 Procedure [facility]01-22-2024 Procedure [facility]01-22-2024 History and physical note Author Douglas Jimenez [facility] May 20, 2023 7:16am Note Date/Time May 20, 2023 7 :16am [facility] Medical Records Department [address] [place] [id number] History & Physical Exam 05/20/2313 MR#: [id number] Acct: [id number] Name: VIDAL KAY Rep #:[id number] : 1945 78 From: Douglas Jimenez DO PCP: Dr. Felix Bill MD Status:R [facility] Location: [place] [address] HPI - General General Date of Admission: 05/20/23 Date of Service: 05/20/23 Chief Complaint: Screening colonoscopy HPI Narrative VIDAL KAY, is a 78 M who presents today for screening colonoscopy. He has past medical history of type 2 diabetes, dysplastic colon polyps on the right side of the colon, CAD status post CABG x 2, ulcerative colitis, status post aortic valve replacement due to nonrheumatic heart disease and aortic stenosis. He comes in today for surveillance colonoscopy. He does take aspirin and vitamin C on a daily basis he has held these medicines for 3 days. He is also insulin-dependent diabetic. He takes mesalamine 1.2 g a day for his ulcerative colitis which is under control. All other 16 review of systems are negative except as per body mentioned HPI. [facility] Medical History (Updated 05/15/23 @ 09:27 by Izabella Min) Back problem Bone fracture Cancer Cardiology follow-up encounter Crohn disease Diabetes type 2, controlled Essential hypertension Former smoker Heart murmur High cholesterol History of echocardiogram History of ulceration Low iron Mixed hyperlipidemia Non-rheumatic mitral regurgitation Nonrheumatic aortic (valve) stenosis Stomach ulcer Ulcerative colitis Wears glasses Home Medications pen needle, diabetic 32 gauge x 5/32 (Comfort EZ Pen [place]) #30 ea 06/02/18 [Rx Last Taken Unknown] ascorbic acid (vitamin C) 1,000 mg tablet 1 g PO DAILY 05/31/21 [History Last Taken Unknown] glucosamine-chondroitin 500 mg-400 mg capsule 1 cap PO DAILY 05/31/21 [History Last Taken Unknown] multivitamin 1 tab PO DAILY 05/31/21 [History Last Taken Unknown] ramipril 5 mg capsule 5 mg PO DAILY 05/31/21 [History Last Taken 02/13/23] dapagliflozin propanediol 10 mg tablet (Farxiga) 10 mg PO DAILY 06/15/21 [History Last Taken Unknown] insulin glargine 100 unit/mL (3 mL) subcutaneous pen (Lantus Solostar U-100 Insulin) 15 unit subcut QHS 06/14/22 [History Last Taken Unknown] mesalamine 1.2 gram tablet,delayed release 1.2 g PO BID #180 tabs 08/08/22 [Rx Last Taken Unknown] aspirin 81 mg tablet,delayed release (Adult Aspirin Regimen) 81 mg PO DAILY 01/24/23 [History Last Taken 02/13/23] metoprolol tartrate 25 mg tablet 25 mg PO BID 04/16/23 [History Last Taken Unknown] rosuvastatin 40 mg tablet 40 mg PO DAILY 04/16/23 [History Last Taken Unknown] insulin lispro 100 unit/mL subcutaneous pen (Humalog KwikPen (U-100) Insulin) 4 unit subcut TID 05/15/23 [History Last Taken Unknown] Allergy/AdvReac Type Severity Reaction Status Date / Time No Known Allergies Allergy Verified 05/15/23 09:14 Family History Mother Diabetes Liver disease CAD (coronary artery disease) Father Diabetes CAD (coronary artery disease) History of coronary artery bypass surgery Surgical History (Updated 05/15/23 @ 09:27 by Izabella Min) History of cardiac catheterization History of carpal tunnel surgery History of tonsillectomy S/P aortic valve replacement S/P CABG x 2 Social History Smoking Status: Former smoker Smokeless tobacco user: snuff how long ago did patient quit smokin+ years second hand exposure: No alcohol intake: never substance use type: does not use caffeine: Yes Type: coffee Number of servings: 5 ROS Review of Systems ROS Unobtainable: other Constitutional Constitutional: Denies fatigue, fever(s), poor appetite, weight gain or weight loss ENT HEENT: Denies mouth lesions Cardiovascular Cardiovascular: Denies abdominal bloating, abdominal edema or abdominal pain Respiratory/Chest Respiratory/Chest: Denies change in mental status, change in phlegm color, chestcongestion or chest tightness Gastrointestinal Gastrointestinal: Denies belching, bloating, change in bowel habits, change in stool character, chewing difficulty, coffee ground emesis, constipation, cramping, diarrhea, dyspepsia, dysphagia, early satiety, excessive flatus, fecalincontinence, heartburn, hematemesis, hematochezia, hemorrhoids, loose stools, melena, nausea, odynophagia, rectal bleeding, tenesmus, vomiting or weight changes Genitourinary Genitourinary: Denies abdominal discomfort, burning urination or itching Musculoskeletal Musculoskeletal: Reports as per HPI; Denies muscle weakness or myalgias Integumentary Integumentary: Denies jaundice Neurologic Neurologic: Denies lack of coordination or weakness Psychiatric Psychiatric: Denies confusion, depression, memory loss, mood swings, paranoia orsuicidal ideation Endocrine Endocrinology: Denies systems reviewed and no addt'l complaints, except as documented Hematologic/Lymphatic Hematologic/Lymphatic: Denies anemia, easy bleeding, easy bruising or lymphadenopathy Allergic/Immunologic Allergic/Immunologic: Denies systems reviewed and no addt'l complaints, except as documented Vital Signs Vital Signs Vital Signs: 05/20/23 06:39 05/20/23 06:39 Temperature 97.7 F L Temperature Source Temporal Pulse Rate 90 Respiratory Rate 16 Respiratory Pattern Normal Blood Pressure 137/63 H Blood Pressure Mean 87 Blood Pressure Source Monitor Blood Pressure Position Semi-Fowlers Blood Pressure Location Right Arm Pulse Ox 100 Oxygen Delivery Method Room Air Weight Weight: 138 lb 0.15 oz Body Mass Index (BMI) 22.2 Physical Exam Const alert, oriented x3, no apparent distress, healthy appearing and well nourished General Appearance: cooperative, comfortable, well kempt and well developed Orientation / Consciousness: awake and oriented to person HEENT Head and Scalp: normocephalic and atraumatic Face and Sinus: normal facial exam Mouth: oral and palatal mucosa normal Eyes General Eye: normal appearance of both eyes Neck full ROM Lymph Lymphatic: no lymphadenopathy noted Chest inspection of chest normal Resp normal respiratory effort and no use of accessory muscles Cardio regular rate and regular rhythm GI normal to inspection, nondistended, normoactive bowel sounds, soft to palpation,non-tender, non-distended and no masses Auscultation: normoactive bowel sounds Palpation: soft Percussion: normal to percussion Rectal Exam: visual inspection normal and normal sphincter tone no CVA tenderness Back/Spine no CVA tenderness and normal ROM Extremity normal to inspection Peripheral Pulses: Yes pulses 2+ throughout Skin no rashes or lesions noted General Skin Exam: no breakdown, elasticity normal and turgor normal Neuro oriented x3 Motor Exam: strength 5/5 throughout Psych mental status grossly normal Appearance: grossly normal Attitude: calm Activity / Motor Behavior: appropriate eye contact Speech: normal speech Thought Process: normal thought process Thought Content: normal thought content Attention / Concentration: attention grossly intact Memory / Cognition: memory grossly intact Insight: insight good Judgement: judgement good Assessment & Plan Assessment/Plan (1) Polyp of colon: (2) Ulcerative colitis: PLAN: Plan He will undergo surveillance colonoscopy. He was explained alternatives, risk, benefits including not withstanding bleeding, infection, sepsis, perforation, need for emergent surgery and . He will have an ASA of 3. 05/20/23 0716 <Electronically signed by Douglas Jimenez DO> Cosigner Signature (if applicable): CC: Dr. Felix Bill MD; Douglas Jimenez DO~ Signed [facility] Work Phone: 1(621) 294-403912-12-2023 History of Present illness Narrative* Phoenix Walsh, BOTTLER HELPER - CAMPUS REP - 04/09/2023 11:00 AM EST Images from the original note were not included. [facility]: [facility] [address] [facility] [place] [address] Dept: [phone] Dept Loc: [phone] Visit type: Established patient Reason for Visit: Follow-up Assessment and Plan CAD s/p CABG Aortic Valve stenosis S/P Tissue AVR Post Op A-fib HTN HLD Former smoker DM II GDMT for CAD - Asa, BB, Statin therapy - DC Eliquis - ok for chemotherapy for lymphoma at [facility] - Cardiac rehab at [place] - No further follow up in our office pt will call for further needs Disposition: Patient verbalized understanding of plan and stated they would call if any questions or concerns arise. Treatment Team: PCP: Felix Bill Subjective HPI: Vidal Kay is a 78 y.o. male referred by Dr. Baig for severe coronary artery bypass surgery reshma aortic valve replacement. He presented as an OP for AVR and CABG x [address] Rodríguez. His EF is preserved at 60% 02/28/23 Rodríguez: CABG x 2, Tissue AVR, LEVH 03/05/23 US guided thoracentesis Since he was last seen has has continued to progress currently is in cardiac rehab and loves the program. He has been back to normal activities and hubert well. Review of Systems Constitutional: Negative for activity change, diaphoresis, fatigue, fever and unexpected weight change. Respiratory: Negative for cough, chest tightness and shortness of breath. Cardiovascular: Negative for chest pain, palpitations and leg swelling. Gastrointestinal: Negative for abdominal distention and abdominal pain. Musculoskeletal: Negative for back pain, gait problem and myalgias. No Known Allergies Outpatient Medications Prior to Visit Medication Sig Dispense Refill apixaban (Eliquis) 5 MG tablet Take 1 tablet (5 mg) by mouth 2 times daily. 60 tablet 0 ascorbic acid (Vitamin C) 1000 MG tablet Take 1,000 mg by mouth daily. aspirin 81 MG EC tablet Take 81 mg by mouth daily. dapagliflozin (Farxiga) 10 MG Take 10 mg by mouth daily. ferrous sulfate 325 (65 Fe) MG tablet Take 1 tablet by mouth daily. furosemide (Lasix) 40 MG tablet Take 1 tablet (40 mg) by mouth daily. 30 tablet 11 glipiZIDE (Glucotrol) 5 MG tablet Take 10 mg by mouth daily. glucosamine-chondroitin 500-400 MG tablet Take 1 tablet by mouth 3 times daily. mesalamine (Lialda) 1.2 g EC tablet Take 2,400 mg by mouth daily (with breakfast). Do not crush, chew, or split. metoprolol tartrate (Lopressor) 25 MG tablet Take 0.5 tablets (12.5 mg) by mouth 2 times daily. 30 tablet 1 Multiple Vitamins-Minerals (multivitamin with minerals) tablet Take 1 tablet by mouth daily. pantoprazole (ProtoNix) 40 MG EC tablet Take 1 tablet (40 mg) by mouth every morning (before breakfast). Do not crush, chew, or split. 30 tablet 11 rosuvastatin (Crestor) 40 MG tablet Take 1 tablet (40 mg) by mouth Nightly. 30 tablet 11 furosemide (Lasix) 40 MG tablet Take 1 tablet (40 mg) by mouth daily for 10 days. No facility-administered medications prior to visit. Past Medical History: Diagnosis Date Cancer (CMS/HCC) (HCC) lymphoma Colitis Coronary artery disease Diabetes mellitus (HCC) Heart murmur Heart valve disease Objective Patient reported: No flowsheet data found. There were no vitals filed for this visit. Wt Readings from Last 3 Encounters: 03/19/23 153 lb (69.4 kg) 03/05/23 166 lb 3.6 oz (75.4 kg) 02/19/23 146 lb 12.8 oz (66.6 kg) Patient was identified and seen today via Telehealth by agreement and consent. I used the followingTelehealth technology: Audio capability only. Total length of call 25 minutes. The patient was offered and advised video for a more comprehensive evaluation, but the patient declined or was unable touse video. Patient location: VV Patient Location: Home. This patient encounter is appropriate and reasonable under the circumstances: transportation issues . The patient has been advised of the potential risks and limitations of this mode of treatment (including but not limited to the absence of in-person examination) and has agreed to be treated in a remote fashion in spite of them. Any and all o f the patient's/patient's family's questions on this issue have been answered and I have made no promises or guarantees to the patient. The patient has also been advised to contact this office for worsening conditions or problems, and seek emergency medical treatment and/or call 911 if the patient deems either necessary. The patient stated that they are currently in the state [facility]. If the patient is a minor, permission has been obtained by the parent or guardian for the patient to receive medical care at this visit. Physical exam deferred due to virtual visit-with audio (telephone) capabilities only Data Reviewed and Summarized Labs/Imaging/Testing: reviewed EMR, see A&P for pertinent diagnostic results related to office visit VINICIO Friend CNP documented in this encounterSLakeHealth Beachwood Medical [id number] Miscellaneous Notes* Addendum Note - Lise Richter APRN.CNP - 04/04/2023 11:10 AM ESTAddended by: LISE RICHTER on: 04/04/2023 11:10 AM Modules accepted: Orders * Telephone Encounter - Alyssa Colin - 04/04/2023 9:33 AM EST Patient needs a new script for the insulin pen needles sent to [facility] in [place]. Please advise documented in this encounterSumma Health12-06-2023 Telephone encounter Note * Telephone Encounter - Radha Forbes RN - 04/03/2023 2:58 PM EST Patient called in to clarify. Patient to stop amio and decrease metoprolol to 12.5 mg twice daily. [facility] [id number] Miscellaneous Notes* Telephone Encounter - Radha Forbes RN - 04/03/2023 2:58 PM EST Patient called in to clarify. Patient to stop amio and decrease metoprolol to 12.5 mg twice daily. * Telephone Encounter - Colleen Krueger MA - 04/03/2023 12:55 PM EST Patient returned the call and will stop the Amioderone and meat pickler the new script of Metoprolol. * Telephone Encounter - Radha Looney RN - 04/03/2023 12:06 PM EST Left voicemail for pt to call office. * Telephone Encounter - VINICIO Ballard CNP - 04/03/2023 11:49 AM EST Reviewed last note by Татьяна Walsh APRN. Per his plan patient was to d/c Amiodarone and decrease Metoprolol dose to 12.5mg BID (half dose). I will send in a refill of the Metoprolol. Please notify patient. VINICIO Ballard CNP 04/03/23 * Telephone Encounter - Radha Looney RN - 04/02/2023 4:26 PM EST Pt states pt needs refills on Amiodarone and Metoprolol. Cardiology appointment is scheduled for 04/16/23. Pt is scheduled for VV with ANGLE Goodson on 04/09/23. ANGLE Goodson Note lasix 80 mg for next three days - then lasix 40 mg PO PRN for weight gain greater than 3 lbs - - Continue lopressor in half dose to allow higher BP while diuresing - asa, BB, statin, and eliquis x 3 months for tissue valve and CAD - Two months recovery for chemo therapy for lymphoma at the [facility] if he would like a second opinion he will let us know - Coccyx Ulcer resolved -VV in 2 weeks to ensure recovery - Call PRN for needs * Telephone Encounter - Colleen Krueger MA - 04/02/2023 2:48 PM EST Patient's called in and would like to know if he should continue to take the amioderone and Metoprolol. If so, they need refills called into [facility] in [place]. Home health nurse called as well and said his B/P is running 138/61, which is out of the protocol for him. When he lays on his left side, he has a dry cough as well that she wanted to report. documented in this encounterSLakeHealth Beachwood Medical [id number] Telephone encounter Note* Telephone Encounter - Colleen Krueger MA - 04/03/2023 12:55 PM EST Patient returned the call and will stop the Amioderone and meat pickler the new script of Metoprolol. [facility] [id number] Telephone encounter Note* Telephone Encounter - Radha Looney RN - 04/03/2023 12:06 PM EST Left voicemail for pt to call office. [address] [id number] Telephone encounter Note* Telephone Encounter - Yary Alberts APRN - ABRAM - 04/03/2023 11:49 AM EST Reviewed last note by Татьяна Walsh APRN. Per his plan patient was to d/c Amiodarone and decrease Metoprolol dose to 12.5mg BID (half dose). I will send in a refill of the Metoprolol. Please notify patient. Yary Alberts APRN - ABRAM 04/03/23 [facility] [id number] Telephone encounter Note* Telephone Encounter - Radha Looney RN - 04/02/2023 4:26 PM EST Pt states pt needs refills on Amiodarone and Metoprolol. Cardiology appointment is scheduled for 04/16/23. Pt is scheduled for VV with ANGLE Goodson on 04/09/23. ANGLE Goodson Note lasix 80 mg for next three days - then lasix 40 mg PO PRN for weight gain greater than 3 lbs - - Continue lopressor in half dose to allow higher BP while diuresing - asa, BB, statin, and eliquis x 3 months for tissue valve and CAD - Two months recovery for chemo therapy for lymphoma at the [facility] if he would like a second opinion he will let us know - Coccyx Ulcer resolved -VV in 2 weeks to ensure recovery - Call PRN for needs [place] [id number] Telephone encounter Note* Telephone Encounter - Colleen Krueger MA - 04/02/2023 2:48 PM EST Patient's called in and would like to know if he should continue to take the amioderone and Metoprolol. If so, they need refills called into [facility] in [place]. Home health nurse called as well and said his B/P is running 138/61, which is out of the protocol for him. When he lays on his left side, he has a dry cough as well that she wanted to report. [facility]12-01-2023 NoteOrders Placed This Encounter Procedures [facility] Cardiac/Pulmonary Rehab Standing Status: Future Standing Expiration Date: 09/28/2023 Referral Priority: Routine Referral Type: Consultation Referral Reason: Specialty Services Required Requested Specialty: Cardiac Rehabilitation Number of Visits Requested: [address] [place], [place] [address]36511-27-2023 History of Present illness Narrative* VINICIO Friend CNP - 03/25/2023 10:30 AM EST Images from the original note were not included. [facility] Group: [employer] [address] [facility] [place] [address] Dept: [phone] Dept Loc: [phone] Visit type: Established patient Reason for Visit: Follow-up Assessment and Plan CAD s/p CABG Aortic Valve stenosis S/P Tissue AVR Post Op A-fib HTN HLD Former smoker DM II - lasix 80 mg for next three days - then lasix 40 mg PO PRN for weight gain greater than 3 lbs - - Continue lopressor in half dose to allow higher BP while diuresing - asa, BB, statin, and eliquis x 3 months for tissue valve and CAD - Two months recovery for chemo therapy for lymphoma at the [facility] if he would like a second opinion he will let us know - Coccyx Ulcer resolved -VV in 2 weeks to ensure recovery - Call PRN for needs Disposition: Patient verbalized understanding of plan and stated they would call if any questions or concerns arise. Treatment Team: PCP: Felix Blil Subjective HPI: Vidal Kay is a 78 y.o. male referred by Dr. Baig for severe coronary artery bypass surgery and a aortic valve replacement. He presented as an OP for AVR and CABG x [address] Rodríguez. His EF is preserved at 60% 02/28/23 Rodríguez: CABG x 2, Tissue AVR, LEVH 03/05/23 US guided thoracentesis I saw him in the office last week for post op initial visit - He had considerable BLE and weight gain with associated orthopnea. He was started on lasix 40 mg daily and presents via phone call due totransport issues from [place]. His dry weight was established at 145 Lbs he is now 148 lbs down from 155 lbs last week and the swelling has almost resolved. All other symptoms have resolved. He has no new issues overall he is doing well. Review of Systems Constitutional: Negative for diaphoresis, fatigue and fever. Respiratory: Negative for cough, shortness of breath and wheezing. Cardiovascular: Negative for chest pain, palpitations and leg swelling. Gastrointestinal: Negative for abdominal distention, constipation and diarrhea. Skin: Negative for color change, pallor and rash. No Known Allergies Outpatient Medications Prior to Visit Medication Sig Dispense Refill apixaban (Eliquis) 5 MG tablet Take 1 tablet (5 mg) by mouth 2 times daily. 60 tablet 0 ascorbic acid (Vitamin C) 1000 MG tablet Take 1,000 mg by mouth daily. aspirin 81 MG EC tablet Take 81 mg by mouth daily. dapagliflozin (Farxiga) 10 MG Take 10 mg by mouth daily. ferrous sulfate 325 (65 Fe) MG tablet Take 1 tablet by mouth daily. furosemide (Lasix) 40 MG tablet Take 1 tablet (40 mg) by mouth daily for 10 days. glipiZIDE (Glucotrol) 5 MG tablet Take 10 mg by mouth daily. glucosamine-chondroitin 500-400 MG tablet Take 1 tablet by mouth 3 times daily. insulin glargine (Lantus) 100 UNIT/ML injection Inject 25 Units under the skin Nightly. 10 mL 12 mesalamine (Lialda) 1.2 g EC tablet Take 2,400 mg by mouth daily (with breakfast). Do not crush, chew, or split. metoprolol tartrate (Lopressor) 25 MG tablet Take 0.5 tablets (12.5 mg) by mouth 2 times daily. Multiple Vitamins-Minerals (multivitamin with minerals) tablet Take 1 tablet by mouth daily. pantoprazole (ProtoNix) 40 MG EC tablet Take 1 tablet (40 mg) by mouth every morning (before breakfast). Do not crush, chew, or split. 30 tablet 11 rosuvastatin (Crestor) 40 MG tablet Take 1 tablet (40 mg) by mouth Nightly. 30 tablet 11 No facility-administered medications prior to visit. Past Medical History: Diagnosis Date Cancer (CMS/HCC) (HCC) lymphoma Colitis Coronary artery disease Diabetes mellitus (HCC) Heart murmur Heart valve disease Objective Patient reported: No flowsheet data found. There were no vitals filed for this visit. Physical exam deferred due to virtual visit-with audio (telephone) capabilities only Data Reviewed and Summarized Labs/Imaging/Testing: reviewed EMR, see A&P for pertinent diagnostic results related to office visit Patient was identified and seen today via Telehealth by agreement and consent. I used the followingTelehealth technology: Audio capability only. Total length of call 32 minutes. The patient was offered and advised video for a more comprehensive evaluation, but the patient declined or was unable touse video. Patient location: VV Patient Location: Home. This patient encounter is appropriate and reasonable under the circumstances: transportation issues . The patient has been advised of the potential risks and limitations of this mode of treatment (including but not limited to the absence of in-person examination) and has agreed to be treated in a remote fashion in spite of them. Any and all o f the patient's/patient's family's questions on this issue have been answered and I have made no promises or guarantees to the patient. The patient has also been advised to contact this office for worsening conditions or problems, and seek emergency medical treatment and/or call 911 if the patient deems either necessary. The patient stated that they are currently in the [facility]. If the patient is a minor, permission has been obtained by the parent or guardian for the patient to receive medical care at this visit. VINICIO Friend CNP documented in this [facility]11-20-2023 Miscellaneous Notes* Telephone Encounter - Bettye Gordon - 03/18/2023 10:15 AM EST Patient has been identified by name and date of : Yes, Provider Date 03/18/23 Time 10:17am Patient phones for refill(s): Requested Prescriptions Pending Prescriptions Disp Refills Blood-Glucose Sensor (DEXCOM G7 SENSOR) rick 10 Each 3 Sig: CHANGE sensor every 10 days. USE FOR CONTINUOUS GLUCOSE MONITORING. INSULIN USE E11.9 Date of last office visit in primary care: Visit date not found Date of next office visit in primary care: Visit date not found Last 2 Encounter Wt Readings: Date: Wt: 02/06/2023 68.9 kg (152 lb) 01/23/2023 67.4 kg (148 lb 8 oz) Previous labs/tests for medication: Not applicable Please advise. Thank you. Bettye Gordon. documented in this encounterSumma Health11-17-2023 Miscellaneous Notes* Telephone Encounter - Delores Cao RN - 03/15/2023 4:05 PM EST ok, thank you I will update Dr. Nguyen and follow up with patient later in March to see if they are ready to make follow up appointment in April and discuss starting treatment. Aviva Cao RN * Telephone Encounter - Leonora Rush - 03/15/2023 3:51 PM EST Spoke with patient to schedule chemo education and spouse was in background stating they refuse appointment for now. Spouse states patient is in no condition for treatment and won't consider anythinguntil April. She has been reading the side effects of Rituxan and states patient should not have at this time while recovering from heart surgery. * Telephone Encounter - Delores Cao RN - 03/15/2023 3:39 PM EST yes, starting 04/01/23 would be ok. Aviva Cao RN * Telephone Encounter - Leonora Rush - 03/15/2023 3:27 PM EST Due to treatment rooms being completely full week of 03/18 and 03/25, is it okay for patient to start Rituxan week of 04/01? * Telephone Encounter - Delores Cao RN - 03/15/2023 1:[address] Nguyen, he would like to see patient in the next 2 weeks and start Rituxan. [place] order are in and patient has signed consent. PSS: please call patient to schedule. Aviva Cao RN * Telephone Encounter - Delores Cao RN - 03/14/2023 4:28 PM EST Per Care Everywhere, patient had CABG x2 with AVR on 02/28/23 and was discharged on 03/05/23. Will check with Dr. Nguyen, how many weeks out before starting Rituxan and then reach out to patient. Aviva Cao, RN * Telephone Encounter - Haily Larsen - 03/11/2023 11:00 AM EST Please advise on if pt has had procedure and if they are ready for scheduling * Telephone Encounter - Princess Turcios - 02/06/2023 12:39 PM EDT Check out comments: Labs today - COMPLETED Patient to call after heart procedure when able to start weekly Rituxan x4 Will need chemo education prior documented in this encounterSumma Health11-16-2023 Telephone encounter Note * Telephone Encounter - VINICIO Ureña CNP - 03/14/2023 2:17 PM EST Discussed with patient and Patient will hold norvasc and also cut lasix in half. He will keep a record of BP and weight If BP outside of parameters given patient to call. Any gain in weight 5lbs in three days or 3 lbs in a day or increase in BLE edema he is to notify our office Has follow up next week with JULIO; he will call with any issues or concerns or new/worsening symptoms [employer] Phone: [phone] 664-477211-16-2023 Miscellaneous Notes* Telephone Encounter - VINICIO Ureña CNP - 03/14/2023 2:17 PM EST Discussed with patient and Patient will hold norvasc and also cut lasix in half. He will keep a record of BP and weight If BP outside of parameters given patient to call. Any gain in weight 5lbs in three days or 3 lbs in a day or increase in BLE edema he is to notify our office Has follow up next week with JULIO; he will call with any issues or concerns or new/worsening symptoms * Telephone Encounter - Radha Looney RN - 03/14/2023 12:56 PM EST Pt called and stated pt is on day 3 of taking Lasix 80 mg daily. She states pt blood pressure has steadily decreased. Pt blood pressure over the weekend was 146/50, today it was 116/43. She states pt is experiencing lightheadedness, dizziness, and fatigue. Pt also states that pt BLE edem[place]as decreased some but not enough. She states they are still having trouble getting compression stockings on. She states pt wears compression stockins as much as possible, however she can not get them on d/t RA and pt can't get them on either. She said a friend helped put them on yesterday but pt does not have them on today. She states pt does elevate BLE in a recliner. Please advise. 02/28/23 Rodríguez: CABG x 2, Tissue AVR, LEVH. ANGLE Goodson Note 03/11/23 PC to the patient advised to take 80 mg lasix for 3 days and call on SATURDAY WITH AN UPDATE documented in this [facility]11-16-2023 Telephone encounter Note* Telephone Encounter - Radha Looney RN - 03/14/2023 12:56 PM EST Pt called and stated pt is on day 3 of taking Lasix 80 mg daily. She states pt blood pressure has steadily decreased. Pt blood pressure over the weekend was 146/50, today it was 116/43. She states pt is experiencing lightheadedness, dizziness, and fatigue. Pt also states that pt BLE edemahas decreased some but not enough. She states they are still having trouble getting compression stockings on. She states pt wears compression stockins as much as possible, however she can not get them on d/t RA and pt can't get them on either. She said a friend helped put them on yesterday but pt does not have them on today. She states pt does elevate BLE in a recliner. Please advise. 02/28/23 Rodríguez: CABG x 2, Tissue AVR, LEVH. ANGLE Goodson Note 03/11/23 PC to the patient advised to take 80 mg lasix for 3 days and call on SATURDAY WITH AN UPDATE [facility] [id number] NoteAddended by: NURA WALSH on: 03/11/2023 04:01 PM Modules accepted: [facility]11-13-2023 Note* Addendum Note - VINICIO Friend CNP - 03/11/2023 4:01 PM ESTAddended by: NURA WALSH on: 03/11/2023 04:01 PM Modules accepted: Orders [facility] [id number] Miscellaneous Notes* Addendum Note - VINICIO Friend CNP - 03/11/2023 4:01 PM ESTAddended by: NURA WALSH on: 03/11/2023 04:01 PM Modules accepted: Orders * Telephone Encounter - VINICIO Friend CNP - 03/11/2023 3:58 PM EST PC to the patient advised to take 80 mg lasix for 3 days and call on SATURDAY WITH AN UPDATE * Telephone Encounter - Radha Forbes RN - 03/11/2023 1:25 PM EST Called and spoke to patient and regarding swelling. Patient is dening all other symptoms. He is wearing his meka hose and walking, elevating when sitting. Patient states his legs and feet are so swollen he can't get on his socks and slippers. 02/28/23 Rodríguez: CABG x 2, Tissue AVR, LEVH. Called and spoke to Nura MOONEY- he will call in some lasix to his pharmacy ( [facility] in [place]). Patient instructed to meat pickler prescription and to call Saturday with an update. All questions were answered. * Telephone Encounter - Dayan Aguila - 03/11/2023 8:05 AM EST Patient calling in and states both patient legs are swollen Please advise [phone] documented in this encounterSLakeHealth Beachwood Medical CenterRhdcrs88-66-9085 Telephone encounter Note* Telephone Encounter - VINICIO Friend CNP - 03/11/2023 3:58 PM EST PC to the patient advised to take 80 mg lasix for 3 days and call on SATURDAY WITH AN UPDATE [facility] [id number] Telephone encounter Note* Telephone Encounter - Radha Forbes RN - 03/11/2023 1:25 PM EST Called and spoke to patient and regarding swelling. Patient is dening all other symptoms. He is wearing his meka hose and walking, elevating when sitting. Patient states his legs and feet are so swollen he can't get on his socks and slippers. 02/28/23 Rodríguez: CABG x 2, Tissue AVR, LEVH. Called and spoke to Nura MOONEY- he will call in some lasix to his pharmacy ( [facility] in [place]). Patient instructed to meat pickler prescription and to call Saturday with an update. All questions were answered. [facility] [id number] Telephone encounter Note* Telephone Encounter - Dayan Aguila - 03/11/2023 8:05 AM EST Patient calling in and states both patient legs are swollen Please advise [phone] [facility] [id number] NoteNutrition Note Stopped in to see pt prior to discharge for diet education. Spouse and daughter also present in room. Family is interested in heart healthy diet education at this time. RD reviewed: avoiding use of salt and limiting processed and other high sodium foods as well as restaurant meals, increasing fiber, whole fruit and vegetable intake, saturated vs unsaturated fats, choosing lean proteins and low fat dairy, reading nutrition labels, etc. Pt spouse demonstrates good understanding of carb control diet; pt is currently consuming an average of 45-50 g of carbs per meal and had A1C of 7.3 on 02/19/23. Family received additional copy of heart healthy diet handout and [facility] RD phone number. Diet Education Educated on heart healthy diet Learners: Patient, Family, and Significant Other Readiness: Acceptance Method: Explanation and Handout Response: Verbalizes Understanding Contact name and number provided. Princess Vincent RD, LD Contact: *[phone] or via DISKOVRe [id number] History of Present illness Narrative* Princess Vincent RD - 03/05/2023 3:17 PM EST Nutrition Note Stopped in to see pt prior to discharge for diet education. Spouse and daughter also present in room. Family is interested in heart healthy diet education at this time. RD reviewed: avoiding use of salt and limiting processed and other high sodium foods as well as restaurant meals, increasing fiber, whole fruit and vegetable intake, saturated vs unsaturated fats, choosing lean proteins and low fat dairy, reading nutrition labels, etc. Pt spouse demonstrates good understanding of carb control diet; pt is currently consuming an average of 45- 50 g of carbs per meal and had A1C of 7.3 on 02/19/23. Family received additional copy of heart healthy diet handout and [facility] RD phone number. Diet Education Educated on heart healthy diet Learners: Patient, Family, and Significant Other Readiness: Acceptance Method: Explanation and Handout Response: Verbalizes Understanding Contact name and number provided. Princess Vincent RD, LD Contact: *[phone] or via Twitmusic chat * Theresa Burns, INFORMATION CLERK - 03/05/2023 12:12 PM EST Images from the original note were not included. PHYSICAL THERAPY [facility] Treatment Note Name/MRN: Vidal Kay ([id number]) Date of : 1945 Age: 78 y.o. Room/Bed: T1-/T1 A Discharge Recommendation: Home with Assist PRN Equipment Needed: none Prior Level of Function ADL Assistance: Independent Ambulation Assistance: Independent Transfer Assistance: Independent Assessment Pt progressing towards goals. Compliant with sternal precautions. Educated and reviewed P&C exercises and reviewed home walking program. Increase time to ambulate. Did well with stairs. Rec home with assist PRN upon discharge. Subjective Pt in bed, agreeable to PT. Had question about bed mobility with HOB flat. Pain: Pt denies any current pain. Medical Precautions: No active isolations Proper PPE donned/doffed in accordance with facility standards. Fall Risk: Irwin Fall Risk Score: 45 (High Risk) Precautions/Restrictions: Sternal Precautions: move in the tube, 10lb lifting restriction Family/Caregiver Present: spouse and child(john) Objective Ambulation Ambulation 1 Assistive device(s) used: none Assist level: SBA Distance (ft): 450ft Quality of gait: uneven step length, wide LUCHO, slow connor, decrease step length, mild deviated path to right. Transfers/Mobility Sit to stand: Supervision Stand to sit: Supervision X4reps from EOB Device(s) used: none Exercises Exercises Upper Extremity: P&C ex #1-9 all x 10 reps each Comments: Educated pt and family on home walking program. Pt non-compliant with P&C ex, educated and reviewed. Bed Mobility Supine to sit: Min Assist, HOB flat, 1st trial min assist and trial 2 and 3 with training SBA Sit to supine: Min Assist, assist with RLE Rolling to right: SBA Rolling to left: SBA Scooting: SBA HOB flat. Increase time. Bed mobility x 3 reps, family training. Stairs Stairs 1 Assistive device(s) used: none Assist level: SBA # of steps: 8 steps Rails: left Additional factors: initially step to gait and able to progress to reciprocal gait. Plan Continue acute PT per plan of care. Safety/Education Safety Safety Devices in place: call light within reach and left in bed Restraints: No Education Education Given To: patient and spouse Education Provided: PT Goals, Gait Training, Home Exercise Program, Precautions, Transfer Training,Discharge Recommendations, and home walking program Education Method: Verbal Barriers to Learning: None Education Outcome: Verbalized Understanding Outcome Measures AM-PAC AM-PAC Inpatient Mobility Raw Score : 22 AM-PAC Inpatient Mobility Raw Score (No Stairs) : 18 JH-HLM JH-HLM Score: Walked 250 ft or more (i.e. several laps on unit) Goals Patient Stated Goal: To go home Encounter Problems Encounter Problems (Active) Mobility Patient will ambulate 300 feet with independence and least restrictive device in order to improve safety and independence with mobility. (Progressing) Start: 03/02/23 Expected End: 03/30/23 Patient will ascend and descend 10 stairs with least restrictive device and independence in order to safely negotiate home. (Progressing) Start: 03/02/23 Expected End: 03/30/23 Pain - Adult Transfers Patient will perform bed mobility with independence in order to improve independence and prepare for out of bed mobility. (Progressing) Start: 03/02/23 Expected End: 03/30/23 Patient will complete functional transfer with least restrictive device with independence in order to prepare for ambulation. (Progressing) Start: 03/02/23 Expected End: 03/30/23 Therapy Time Individual Co-treatment Time In 1102 Time Out 1151 Minutes 49 Timed Code Treatment Minutes: 49 Minutes (gait; tp; fa) Theresa Burns PTA * Marlene Mack, OT - 03/05/2023 8:41 AM EST Images from the original note were not included. OCCUPATIONAL THERAPY [facility] Initial Evaluation Name/MRN: Vidal Kay ([id number]) Evaluation Date: 03/05/2023 Date of : 1945 Admission Date: 02/28/2023 5:56 AM Age: 78 y.o. Room/Bed: T1-101/T1-101 A Discharge Recommendation: Home with Assist PRN Equipment Needed: none Assessment IMPRESSION: OT eval complete, pt s/p CABG x2, AVR. Currently close to baseline for ADLs and functional mobility. Pt supervision for mobility, toilet transfers and LE dressing. Increased time needed for sit<>stand. At this time recommend home with assist PRN. Performance Deficits /Impairments: Decreased Endurance and Decreased High Level IADLs Prognosis: Good Decision Making: Low Complexity Subjective Pt up in recliner upon entry, agreeable to therapy Pain: RN managing pain. Past Medical History: Past Medical History: Diagnosis Date Cancer (CMS/HCC) (HCC) lymphoma Colitis Coronary artery disease Diabetes mellitus (HCC) Heart murmur Heart valve disease Past Surgical History: Past Surgical History: Procedure Laterality Date CARDIAC CATHETERIZATION CARPAL TUNNEL RELEASE COLONOSCOPY Admission Diagnosis: Patient Active Problem List Diagnosis Date Noted CAD in [place] artery 02/28/2023 Medical Precautions: No active isolations Proper PPE donned/doffed in accordance with facility standards. Fall Risk: Irwin Fall Risk Score: 50 (High Risk) Precautions/Restrictions: Sternal Precautions: move in the tube, 10lb lifting restriction Family/Caregiver Present: none Overall Cognitive Status: WFL Overall Orientation Status: Oriented x4 Social/Functional History Patient admitted from home. Lives With: Spouse Type of Home: single family home Home Layout: Two Level Home Home Access: Bathroom Shower/Tub: Toilet: Standard Home Equipment: none Homemaking Responsibilities: Independent Receives Help From: None Active Manager Landscape: Yes Prior Level of Function ADL Assistance: Independent Ambulation Assistance: Independent Transfer Assistance: Independent Objective ADLs LE Dressing: Supervision Toileting: Supervision Upper Extremity Assessment AROM: WFL PROM: Strength: Vision: not assessed this session Hearing: normal Bed Mobility Transfers/Functional Mobility Sit to stand: Supervision Stand to sit: Supervision Toilet: Supervision Functional mobility: Supervision Device(s) used: none AM-PAC AM-PAC Inpatient Daily Activity Raw Score: 24 ADL Inpatient [facility] G-Code Modifier: CH Plan Pt would benefit from skilled acute OT services to address ROM, Endurance Training, Safety Education and Training, Equipment Evaluation/Education, Self- Care/ADL Training, and Home Management Training. Frequency: 1x/week for 4 weeks Barriers: None Prognosis: good Safety/Education Safety Safety Devices in place: All fall risk precautions in place, call light within reach, left in chair, patient at risk for falls, and no alarms engaged upon entry Restraints: N/A Education Education Given To: patient Education Provided: OT Role, Plan of Care, and Discharge Recommendations Education Method: Verbal Barriers to Learning: None Education Outcome: Verbalized Understanding Goals Patient Stated Goal: to go home Encounter Problems Encounter Problems (Active) Balance Patient will maintain dynamic standing balance for 5 minutes with independence in order to demonstrate decreased risk of falling. Start: 03/05/23 Expected End: 04/02/23 Mobility Patient will complete item retrieval with independence Start: 03/05/23 Expected End: 04/02/23 Safety Patient will recall/demonstrate weight bearing and/or ROM restrictions with all functional mobilityin order to promote healing and safety with functional tasks. Start: 03/05/23 Expected End: 04/02/23 Therapy Time Individual Co-treatment Time In 0816 Time Out 0833 Minutes 17 Marlene Mack OTR/L Patient's Occupational Therapy Plan of Care supervision is transferred to a [facility] Occupational Therapist. Goals and/or treatment plan was established in collaboration with patient/family/other representatives. * Phoenix Walsh APRN - CAMPUS REP - 03/05/2023 7:01 AM EST Images from the original note were not included. Cardiothoracic Surgery/[facility] Progress Note PATIENT NAME: Vidal Kay DATE: 03/05/23 HPI: Vidal Kay is a 78 y.o. male referred by Dr. Baig for severe coronary artery bypass surgery reshma aortic valve replacement. He presented as an OP for AVR and CABG x [address] Rodríguez. Surgery/Procedure: 02/28/23 Rodríguez: CABG x 2, Tissue AVR, LEVH Interval History: 03/03/23, POD# 06 Pt continues to get stronger he is currently walking in the halls - Eager to go home today Review of Systems Constitutional: Negative for diaphoresis, fatigue and fever. Respiratory: Negative for cough, shortness of breath and wheezing. Cardiovascular: Negative for chest pain, palpitations and leg swelling. Gastrointestinal: Negative for abdominal distention, constipation and diarrhea. Endocrine: Negative for cold intolerance and heat intolerance. Skin: Negative for color change, pallor and rash. Objective: Last BM Date: 03/04/23 Vitals: BP: 120/54, MAP (mmHg): 75, BP Method: Automatic Heart Rate: 56 Resp: 18 Temp: 36.4 C (97.6 F), Temp Source: Temporal BMI (Calculated): 26.43 Pacer Wires: V off CXR: Right effusion BMP: Recent Labs 03/02/23234903/04/2333203/05/23416 NA 128* 130* 133* K 4.7 4.6 4.5 CL 96* 97* 101 CO2 20* 24 25 BUN 63* 74* 69* CREATININE 1.74* 1.41* 1.20 CALCIUM 9.2 9.1 9.0 MG 2.7* 2.9* -- CBC: Recent Labs 03/02/23234903/04/2333203/05/23416 WBC 14.3* 12.1* 11.8* HGB 9.6* 9.1* 9.5* HCT 29.0* 27.3* 28.8* PLT 257 235 262 MCV 79.9* 79.4* 81.0 RDW 17.0* 16.9* 17.5* INR: Recent Labs 03/02/232349 INR 1.2* Physical Exam Cardiovascular: Rate and Rhythm: Normal rate and regular rhythm. Heart sounds: Normal heart sounds. No murmur heard. No friction rub. Pulmonary: Effort: Pulmonary effort is normal. Skin: General: Skin is warm and dry. Capillary Refill: Capillary refill takes less than 2 seconds. Findings: Ecchymosis present. No bruising. Neurological: Mental Status: He is alert. Psychiatric: Behavior: Behavior is cooperative. Assessment: CAD s/p CABG Aortic Valve stenosis S/P Tissue AVR Post Op A-fib HTN HLD Former smoker DM II Post operative Pulm Management: Normal Post-operative Course Post-operative Atrial Fibrillation: [x]Yes [] No Plan: Patient Status: Telemetry Right Effusion remains will plan IR guided thoracentesis Cut Pace wires today Continue aspirin, statin and BB on amlodipine for BP Continue PO amio cut to 200 mg daily Eliquis PO for tissue valve Likely DC later today PT/OT: Home with assist PRN (03/05/23) Pulmonary hygiene: IS and Acapella GI prophy: PO protonix DVT prophy:TEDs, SCDs, and Lovenox SubQ Disposition: DC to home with home health tomorrow Central Line: []Yes [x] No Arterial Line: []Yes [x] No Correa: []Yes [x] No Restraints: []Yes [x] No Patient discussed and plan of day developed from multidisciplinary rounds between Cardiothoracic Surgery (Cardiothoracic Surgeon, JULIO) and Critical Care Attending Cardiac Core Medications: ASA, Statin, and BB EF: 60% (02/28/23) Blood Conservation: Transfused post-op. Subscription Clerk: Dr. Baig Associated attestation - Sourav Abbott DO - 03/05/2023 4:08 PM EST I have personally performed a [id number] diagnostic evaluation on this patient on date of wlutjst37/07/23 . History, labs, imaging studies, and electronic medical record have been reviewed by me. This note documented by the []fish housekeeper [x]JULIO reflects my history, exam, and medical decision making. I have reviewed and agree with the care plan. Changes were made in the orders as necessary. ROS documentation was reviewed and negative unless otherwise stated in HPI. Additional pertinent interval history, ROS, and physical exam findings: No overnight events. CTS team requesting TAY zavala today Assessment: CABGx2 02/28/23 CAD s/p CABG AVR 02/28/23 T2DM w/ stress hyperglycemia Plan: Plan for DC home in next 24 hrs. Total critical care time for this patient with life-threatening unstable organ failure, including direct patient contact, management of life support systems, review of data including imaging and labs, and discussions with other team members and physicians at least 35min so far today, excluding procedures. * Celsa Grissom MD - 03/04/2023 10:05 AM EST Department of Internal Medicine Division of Endocrinology, Diabetes, & Metabolism Endocrinology Note Patient Name: Vidal Kay : 1945 AGE: 78 y.o. Room[facility]Bed: [facility] A Admission Date: 02/28/2023 Visit Date: 03/04/2023 Reason for Endocrine Consult: post op heart Provider/Team Requesting Consult: cts PCP: [facility] [employer] Coxswain: No ASSESSMENT: DM2 with hyperglycemia without long term care administrator insulin Cabgx2, AVR CAD/ HTN/HLD YELENA - Improving PLAN: Current sugars are improving Continue Lantus 30 units at bedtime Continue Humalog 10 units with meals Continue moderate dose scale Humalog ICU goal <180 GMF goal <150 POCT BG Q 1 Hypoglycemia per protocol Carb controlled diet ANTICIPATED ENDOCRINE HOME GOING RECOMMENDATIONS: Optimized for Discharge from Endocrine standpoint: No Home Going Endocrine Rx Recommendations-- Resume Farxiga 10 mg daily if renal functions show gfr >45 Lantus dose tbd Glipizide tbd Outpt Follow Up-- Pcp and states he sees [facility] SUBJECTIVE/HPI: CHIEF COMPLAINT: No chief complaint on file. Cabgx2, AVR; History of DM2 managed outpatient by PCP Type of DM: 2 Onset of DM: 7 years ago Home DM Medication Regimen: farxiga 10, glipizide 10 daily, lantus pens 15 hs DM control (last A1c/glucose data): Lab Results Component Value Date HGBA1C 7.3 (H) 02/19/2023 Does wear dexcom g6- on right arm- no lifter/driver with him Glucose Date/Time Value Ref Range Status 03/04/2023 08:39 AM 137 (H) 70 - 100 mg/dL Final 03/03/2023 08:57 PM 167 (H) 70 - 100 mg/dL Final 03/03/2023 06:18 PM 276 (H) 70 - 100 mg/dL Final 03/03/2023 11:42 AM 249 (H) 70 - 100 mg/dL Final 03/02/2023 08:47 PM 293 (H) 70 - 100 mg/dL Final 03/02/2023 06:56 PM 325 (H) 70 - 100 mg/dL Final Patient seen at bedside with his Doing well overall Able to ambulate Appetite is fair No nausea or vomiting today. Does have constipation Review of Systems All other systems reviewed and are negative. ROS negative except for those mentioned in HPI. OBJECTIVE: Vitals: 03/04/23 0600 03/04/23 0700 03/04/23 0800 03/04/23 0939 BP: 126/60 BP Location: Patient Position: Pulse: 57 57 67 Resp: Temp: 36.5 C (97.7 F) TempSrc: Temporal SpO2: 92% 92% Weight: Height: Physical Exam Vitals and nursing note reviewed. Constitutional: General: He is not in acute distress. Comments: Sitting up in the bed. Lean build. HENT: Head: Normocephalic. Mouth/Throat: Mouth: Mucous membranes are moist. Eyes: Extraocular Movements: Extraocular movements intact. Cardiovascular: Rate and Rhythm: Normal rate and regular rhythm. Heart sounds: Normal heart sounds. Comments: Intact incision SR on telemetry. Pulmonary: Effort: Pulmonary effort is normal. Skin: General: Skin is warm and dry. Neurological: General: No focal deficit present. Mental Status: He is alert and oriented to person, place, and time. Psychiatric: Mood and Affect: Mood normal. 24 hour intake/output: Intake/Output Summary (Last 24 hours) at 03/04/2023 1006 Last data filed at 03/04/2023 0600 Gross per 24 hour Intake 1060 ml Output 980 ml Net 80 ml Diet: Adult diet Regular; No Added Salt (3-4 gm) Medications (as per EMR): HomeMeds: Current Outpatient Medications Medication Instructions ascorbic acid (VITAMIN C) 1,000 mg, Oral, Daily aspirin 81 mg, Oral, Daily dapagliflozin (FARXIGA) 10 mg, Oral, Daily ferrous sulfate 325 (65 Fe) MG tablet 1 tablet, Oral, Daily glipiZIDE (GLUCOTROL) 10 mg, Oral, Daily glucosamine-chondroitin 500-400 MG tablet 1 tablet, Oral, 3 times daily insulin glargine (LANTUS) 15 Units, SubCUTAneous, Nightly mesalamine (LIALDA) 2,400 mg, Oral, Daily with breakfast, Do not crush, chew, or split. Multiple Vitamins-Minerals (multivitamin with minerals) tablet 1 tablet, Oral, Daily mupirocin (Bactroban) 2 % ointment Apply liberal amount per nostril the night before surgery and then again the morning of surgery ramipril (ALTACE) 5 mg, Oral, Daily Scheduled Meds:acetaminophen, 1,000 mg, Oral, q8h amiodarone, 400 mg, Oral, BID amLODIPine, 10 mg, Oral, Daily apixaban, 5 mg, Oral, BID aspirin, 81 mg, Oral, Daily chlorhexidine, 15 mL, Mouth/Throat, BID ferrous sulfate, 325 mg, Oral, Daily insulin glargine, 30 Units, SubCUTAneous, Nightly insulin lispro, 0-12 Units, SubCUTAneous, TID WC insulin lispro, 10 Units, SubCUTAneous, TID WC Lidocaine, 1 patch, Topical, Daily metoprolol tartrate, 25 mg, Oral, BID pantoprazole, 40 mg, Oral, qAM AC polyethylene glycol (PEG) 3350, 17 g, Oral, Daily rosuvastatin, 40 mg, Oral, Nightly senna-docusate sodium, 2 tablet, Oral, Nightly Continuous Infusions: PRN Meds:PRN medications: dextrose, dextrose, glucagon (rDNA), glucose, magnesium sulfate OR magnesium sulfate, ondansetron ODT OR ondansetron, oxyCODONE OR oxyCODONE, potassium chloride CR, sodium chloride Diagnostic Workup: I reviewed pertinent Laboratory results, Radiographic results, and Other Clinical Notes at the timeof today's encounter. Labs: No components found for: LABA1C No components found for: EAG Lab Results Component Value Date NA 130 (L) 03/04/2023 K 4.6 03/04/2023 CL 97 (L) 03/04/2023 CO2 24 03/04/2023 BUN 74 (H) 03/04/2023 CREATININE 1.41 (H) 03/04/2023 GLUCOSE 93 03/04/2023 CALCIUM 9.1 03/04/2023 No results found for: CHLPL, CHOL No results found for: TRIG No results found for: HDL No results found for: LDLCALC No results found for: VLDL No results found for: CHOLHDLRATIO No results found for: [id number] No results found for: TSH, R5PXAPN, L5PIXYG, THYROIDAB Radiology reportsas per the Radiologist Radiology: ECG 12 lead Result Date: 03/01/2023 Atrial fibrillation Anterior infarct, acute XR chest 1 view Result Date: 03/01/2023 Patient Name: VIDAL KAY : 1945 Date/Time: 03/01/2023 05:14 Procedure: XR CHEST 1 VIEW Ordering Provider: WALSH MATTHEW Reason For Exam: Shortness of breath CHEST RADIOGRAPH CLINICAL INDICATION: Shortness of breath TECHNIQUE: AP COMPARISON: 02/28/2023 chest radiograph FINDINGS: Stable positioning of right IJ [place]-Jose catheter and mediastinal drain. Cardiomediastinal: The cardiomediastinal silhouette is stable in size and configuration. Lungs: Small bilateral pleural effusions with associated atelectasis, right greaterthan left. Increased interstitial lung markings concerning for pulmonary edema. No pneumothorax. Osseous structures: No acute osseous abnormality. See findings. Report Dictated on Electronically Signed By: Ravinder Garnett MD Electronically Signed Date/Time: 03/01/2023 5:25 AM EDT ECG 12 lead Sinus tachycardia Ventricular premature complex Nonspecific T abnormalities, lateral leads Borderline ST elevation, anterior leads XR chest 1 view Result Date: 02/28/2023 Patient Name: VIDAL KAY : 1945 Date/Time: 02/28/2023 11:54 Procedure: XR CHEST 1 VIEW Ordering Provider: WALSH MATTHEW Reason For Exam: Post op open heart surgery CHEST - PORTABLE: CLINICAL INDICATION: Postop open heart surgery. TECHNIQUE: Portable AP COMPARISON: 02/19/2023. FINDINGS/IMPRESSION: Limitations: Slight patient rotation and multiple overlying leads/support devices Lines, tubes, and devices: Endotracheal tube has its tip about 4 cm above the herbert. Right IJ [place]-Jose catheter with its tip in the proximal right pulmonary artery. NG tube with its tip in the proximal stomach. Mediastinal drain and left basilar chest tube in place. Cardiomediastinal silhouette: Postsurgical changes with median sternotomy wires and cardiac valve prosthesis. Lungs/Pleura: Slight coarsening of the interstitial lung markings in part likely reflecting chronic lung changes. There may be element of mild central pulmonary vascular congestion. Mild left basilar atelectasis. No sizable pleural effusions. No pneumothorax. Osseous structures: Degenerative spondylosis in the visualized spine. Soft tissues: No soft tissue abnormality is detected. Report Dictated on Electronically Signed By: Isaias Vasquez MD Electronically Signed Date/Time: 02/28/2023 1:23 PM EDT Transesophageal echocardiogram (LAURIE) with contrast and 3D PRN Result Date: 02/28/2023 Left Ventricle: Left ventricle size is normal. Mildly increased wall thickness. Normal left ventricular systolic function. LVEF pre and post AVR is normal , visually about 60%. Normal wall motion. Right Ventricle: Right ventricle size is normal. Normal systolic function. Aortic Valve: Pre-valve replacement: Severe stenosis of the aortic valve. By planimetery valve area was 1 cm2.Mild regurgitation. s/p Bioprosthetic AVR . well seated, functioning normally (Mean gradient 8 mmHg, V max 2.1 m/s). No perivalvular or valvular regurgitation Mitral Valve: Mildly thickened leaflets. Mild to moderate (1-2+) regurgitation. ECG 12 lead Sinus rhythm Right bundle branch block History/Other: Past Medical History: Past Medical History: Diagnosis Date Cancer (CMS/HCC) (HCC) lymphoma Colitis Coronary artery disease Diabetes mellitus (HCC) Heart murmur Heart valve disease Past Surgical History: Past Surgical History: Procedure Laterality Date CARDIAC CATHETERIZATION CARPAL TUNNEL RELEASE COLONOSCOPY Allergy(ies): No Known Allergies Family History: No family history on file. Social History: Social History Tobacco Use Smoking status: Former Packs/day: 1.00 Years: 20.00 Additional pack years: 0.00 Total pack years: 20.00 Types: Pipe, Cigarettes Start date: 1982 Quit date: 1989 Years since quittin.8 Smokeless tobacco: Current Types: Chew Tobacco comments: snuff Vaping Use Vaping Use: Never used Substance Use Topics Alcohol use: Not Currently Drug use: Not Currently Portions of the information within this encounter were entered using an electronic dictation system. Best attempts were made to edit/proofread the information prior to note completion. Despite the review of information, some errors may remain. If there are questions related to the information contained within the note please contact the signing physician directly. I spent 25 minutes with the pt which involved coordination of care, medical evaluation, review of records, and/or counseling of the pt regarding his/her condition/disease state/prognosis on the date of this note. * Phoenix Walsh, BOTTLER HELPER - CAMPUS REP - 03/04/2023 7:34 AM EST Images from the original note were not included. [facility]acic Surgery/[facility] Progress Note PATIENT NAME: Vidal Kay DATE: 03/04/23 HPI: Vidal Kay is a 78 y.o. male referred by Dr. Baig for severe coronary artery bypass surgery reshma aortic valve replacement. He presented as an OP for AVR and CABG x [address] Rodríguez. Surgery/Procedure: 02/28/23 Rodríguez: CABG x 2, Tissue AVR, LEVH Interval History: 03/03/23, POD# 05 No changes overnight, pt eager to go home NANDO, CXR right effusion, creat down trending, HGB 9.1 Review of Systems Constitutional: Negative for diaphoresis, fatigue and fever. Respiratory: Negative for cough, shortness of breath and wheezing. Cardiovascular: Positive for chest pain. Negative for palpitations and leg swelling. Gastrointestinal: Negative for abdominal distention, constipation and diarrhea. Endocrine: Negative for cold intolerance and heat intolerance. Skin: Negative for color change, pallor and rash. Objective: Last BM Date: 03/03/23 Vitals: BP: 118/57, MAP (mmHg): 75, BP Method: Automatic Heart Rate: 57 Resp: 14 Temp: 36.9 C (98.5 F), Temp Source: Oral BMI (Calculated): 25.34 Pacer Wires: V off CXR: BMP: Recent Labs 03/02/23 0011 03/02/23 2350 03/04/23 0333 NA 132* 128* 130* K 4.7 4.7 4.6 CL 98 96* 97* CO2 20* 20* 24 BUN 40* 63* 74* CREATININE 1.62* 1.74* 1.41* CALCIUM 9.5 9.2 9.1 MG 2.4* 2.7* 2.9* CBC: Recent Labs 03/02/23 0011 03/02/23 2350 03/04/23 0333 WBC 12.0* 14.3* 12.1* HGB 9.4* 9.6* 9.1* HCT 28.0* 29.0* 27.3* PLT 215 257 235 MCV 80.5 79.9* 79.4* RDW 16.8* 17.0* 16.9* INR: Recent Labs 03/02/23 0011 03/02/23 2350 INR 1.2* 1.2* Physical Exam Cardiovascular: Rate and Rhythm: Normal rate and regular rhythm. Heart sounds: Normal heart sounds. No murmur heard. No friction rub. Pulmonary: Effort: Pulmonary effort is normal. Skin: General: Skin is warm and dry. Capillary Refill: Capillary refill takes less than 2 seconds. Findings: Ecchymosis present. No bruising. Neurological: Mental Status: He is alert. Psychiatric: Behavior: Behavior is cooperative. Assessment: CAD s/p CABG Aortic Valve stenosis S/P Tissue AVR HTN HLD Former smoker DM II Post operative Pulm Management: Normal Post-operative Course Post-operative Atrial Fibrillation: [x]Yes [] No Plan: Patient Status: Telemetry Right Effusion noted on CXR consider thoracentesis prior to DC Cut Pace wires prior to DC Continue aspirin, statin and BB on amlodipine for BP Continue PO amio Creat downtrend allow auto diuresis Start Eliquis PO for tissue valve Wean O2 as able, goal SpO2>92%. PT/OT: Home with assist PRN (03/02/23) Pulmonary hygiene: IS and Acapella GI prophy: PO protonix DVT prophy:TEDs, SCDs, and Lovenox SubQ Disposition: DC to home with home health tomorrow Central Line: []Yes [x] No Arterial Line: []Yes [x] No Correa: []Yes [x] No Restraints: []Yes [x] No Patient discussed and plan of day developed from multidisciplinary rounds between Cardiothoracic Surgery (Cardiothoracic Surgeon, JULIO) and Critical Care Attending Cardiac Core Medications: ASA, Statin, and BB EF: 60% (02/28/23) Blood Conservation: Transfused post-op. Subscription Clerk: Dr. Baig Associated attestation - Sourav Abbott DO - 03/04/2023 4:24 PM EST I have personally performed a [id number] diagnostic evaluation on this patient on date of jiczfyf12/06/23. History, labs, imaging studies, and electronic medical record have been reviewed by me. This note documented by the []fish housekeeper [x]JULIO reflects my history, exam, and medical decision making. I have reviewed and agree with the care plan. Changes were made in the orders as necessary. ROS documentation was reviewed and negative unless otherwise stated in HPI. Additional pertinent interval history, ROS, and physical exam findings: Hosp day = 4 No overnight events. Has some chest discomfort with ambulation but otherwise no complaints. Wants to go home. Sitting in bedside chair with family present. Nonlabored. Wearing a baseball cap on his head. Appears comfortable. No diaphoresis. Assessment: CABGx2 02/28/23 CAD s/p CABG AVR 02/28/23 T2DM w/ stress hyperglycemia Plan: Continue cardiac meds as per JULIO note. Eliquis initiation. Ambulate and ongoing PT/OT. Monitor PO intake. Total critical care time for this patient with life-threatening unstable organ failure, including direct patient contact, management of life support systems, review of data including imaging and labs, and discussions with other team members and physicians at least 35min so far today, excluding procedures. * VINICIO Marsh CNP - 03/03/2023 1:39 PM EST Images from the original note were not included. Cardiothoracic Surgery Note PATIENT NAME: Vidal Kay : 1945 (78 y.o.) TODAY'S DATE: 03/03/2023 Objective: BP 110/51 Pulse 57 Temp 36.7 C (98 F) (Temporal) Resp 16 Ht 5' 6.5 (1.689 m) Wt 155 lb 3.2 oz (70.4 kg) SpO2 91% BMI 24.67 kg/m Chest tubes assessed: no air leak, subcutaneous air noted. Chest tubes removed without difficulty and dressing applied. Patient tolerated well. Patient and nurse educated on possible complications toobserve for. Will continue to monitor. * Mee Knight - 03/03/2023 10:41 AM EST Department of Internal Medicine Division of Endocrinology, Diabetes, & Metabolism Endocrinology Note Patient Name: Vidal Kay : 1945 AGE: 78 y.o. Room/Bed: [facility] A Admission Date: 02/28/2023 Visit Date: 03/03/2023 Reason for Endocrine Consult: post op heart Provider/Team Requesting Consult: cts PCP: Felix [facility] [employer] Coxswain: No ASSESSMENT: Stress hyperglycemia DM2 with hyperglycemia without senior living insulin Cabgx2, AVR CAD/ HTN/HLD PLAN: Transitioned off insulin gtt 03/01/23. PM hyperglycemia requiring additional dose of Lantus and Humalog. No FBG this am to assess response; had already eaten. Continue Lantus 24 units at bedtime. Continue Humalog 10 units with meals, hold if NPO. Diet as tolerated. ICU goal <180 GMF goal <150 POCT BG Q 1 Hypoglycemia per protocol Carb controlled diet ANTICIPATED ENDOCRINE HOME GOING RECOMMENDATIONS: Optimized for Discharge from Endocrine standpoint: No Home Going Endocrine Rx Recommendations-- tbd Outpt Follow Up-- Pcp and states he sees kately[facility] endocrine SUBJECTIVE/HPI: CHIEF COMPLAINT: No chief complaint on file. Cabgx2, AVR; History of DM2 managed outpatient by PCP Interval history (03/03/23) and daughter at bedside. Correa removed. CT(s) remain. He c/o fatigue, incisional soreness today. +Productive cough. Appetite is fair, not at baseline. He had cereal for breakfast. Drinking Ensure surgery as well. Denies n/v/d. Has been up for a walk this AM. Family had multiple questions specific to discharge timeline/process. Briefly discussed; encouragedto seek specific details from surgical team. Type of DM: 2 Onset of DM: 7 years ago Home DM Medication Regimen: farxiga 10, glipizide 10 daily, lantus pens 15 hs DM control (last A1c/glucose data): Lab Results Component Value Date HGBA1C 7.3 (H) 02/19/2023 Does wear dexcom g6- on right arm- no lifter/driver with him Glucose Date/Time Value Ref Range Status 03/02/2023 08:47 PM 293 (H) 70 - 100 mg/dL Final 03/02/2023 06:56 PM 325 (H) 70 - 100 mg/dL Final 03/02/2023 01:12 PM 122 (H) 70 - 100 mg/dL Final 03/02/2023 12:06 PM 147 (H) 70 - 100 mg/dL Final 03/02/2023 11:18 AM 161 (H) 70 - 100 mg/dL Final 03/02/2023 10:17 AM 184 (H) 70 - 100 mg/dL Final Review of Systems All other systems reviewed and are negative. ROS negative except for those mentioned in HPI. OBJECTIVE: Vitals: 03/02/23 2000 03/03/23 0000 03/03/23 0400 03/03/23 0600 BP: 135/62 127/66 (!) 151/65 BP Location: Left arm Left arm Left arm Patient Position: Lying Lying Lying Pulse: 61 61 63 Resp: 18 18 16 Temp: 36.8 C (98.2 F) 36.7 C (98 F) 36.7 C (98 F) TempSrc: Temporal Temporal Temporal SpO2: 95% 94% 94% Weight: 155 lb 3.2 oz (70.4 kg) Height: Physical Exam Vitals and nursing note reviewed. Constitutional: General: He is not in acute distress. Comments: Sitting up in the bed. Lean build. HENT: Head: Normocephalic. Mouth/Throat: Mouth: Mucous membranes are moist. Eyes: Extraocular Movements: Extraocular movements intact. Cardiovascular: Rate and Rhythm: Normal rate and regular rhythm. Pulses: Normal pulses. Heart sounds: Normal heart sounds. Comments: CT(s) remain. SR on telemetry. Pulmonary: Effort: Pulmonary effort is normal. Skin: General: Skin is warm and dry. Comments: MSCI open-to-air; surrounding lidocaine patches noted. Neurological: General: No focal deficit present. Mental Status: He is alert and oriented to person, place, and time. Psychiatric: Mood and Affect: Mood normal. 24 hour intake/output: Intake/Output Summary (Last 24 hours) at 03/03/2023 1041 Last data filed at 03/03/2023 0930 Gross per 24 hour Intake 300 ml Output 1415 ml Net -1115 ml Diet: Adult diet Regular; No Added Salt (3-4 gm) Medications (as per EMR): HomeMeds: Current Outpatient Medications Medication Instructions ascorbic acid (VITAMIN C) 1,000 mg, Oral, Daily aspirin 81 mg, Oral, Daily dapagliflozin (FARXIGA) 10 mg, Oral, Daily ferrous sulfate 325 (65 Fe) MG tablet 1 tablet, Oral, Daily glipiZIDE (GLUCOTROL) 10 mg, Oral, Daily glucosamine-chondroitin 500-400 MG tablet 1 tablet, Oral, 3 times daily insulin glargine (LANTUS) 15 Units, SubCUTAneous, Nightly mesalamine (LIALDA) 2,400 mg, Oral, Daily with breakfast, Do not crush, chew, or split. Multiple Vitamins-Minerals (multivitamin with minerals) tablet 1 tablet, Oral, Daily mupirocin (Bactroban) 2 % ointment Apply liberal amount per nostril the night before surgery and then again the morning of surgery ramipril (ALTACE) 5 mg, Oral, Daily Scheduled Meds:acetaminophen, 1,000 mg, Oral, q8h amiodarone, 400 mg, Oral, BID amLODIPine, 10 mg, Oral, Daily aspirin, 81 mg, Oral, Daily chlorhexidine, 15 mL, Mouth/Throat, BID enoxaparin, 40 mg, SubCUTAneous, Daily ferrous sulfate, 325 mg, Oral, Daily insulin glargine, 24 Units, SubCUTAneous, Nightly insulin lispro, 0-12 Units, SubCUTAneous, TID WC insulin lispro, 10 Units, SubCUTAneous, TID WC Lidocaine, 1 patch, Topical, Daily metoprolol tartrate, 25 mg, Oral, BID mupirocin, , Nasal, BID pantoprazole, 40 mg, Oral, qAM AC polyethylene glycol (PEG) 3350, 17 g, Oral, Daily rosuvastatin, 40 mg, Oral, Nightly senna-docusate sodium, 2 tablet, Oral, Nightly sodium chloride 0.9%, 10 mL, IntraVENous, 2 times per day Continuous Infusions: PRN Meds:PRN medications: calcium gluconate, dextrose, dextrose, glucagon (rDNA), glucose, hydrALAZINE OR hydrALAZINE, magnesium sulfate OR magnesium sulfate, ondansetron ODT OR ondansetron, oxyCODONE OR oxyCODONE, potassium chloride OR potassium chloride OR potassium chlorid e, potassium chloride CR, sodium chloride, sodium chloride 0.9% Diagnostic Workup: I reviewed pertinent Laboratory results, Radiographic results, and Other Clinical Notes at the timeof today's encounter. Labs: No components found for: LABA1C No components found for: EAG Lab Results Component Value Date NA 128 (L) 03/02/2023 K 4.7 03/02/2023 CL 96 (L) 03/02/2023 CO2 20 (L) 03/02/2023 BUN 63 (H) 03/02/2023 CREATININE 1.74 (H) 03/02/2023 GLUCOSE 144 (H) 03/02/2023 CALCIUM 9.2 03/02/2023 No results found for: CHLPL, CHOL No results found for: TRIG No results found for: HDL No results found for: LDLCALC No results found for: VLDL No results found for: CHOLHDLRATIO No results found for: [id number] No results found for: TSH, T9LCGQW, F8OLIFR, THYROIDAB Radiology reportsas per the Radiologist Radiology: ECG 12 lead Result Date: 03/01/2023 Atrial fibrillation Anterior infarct, acute XR chest 1 view Result Date: 03/01/2023 Patient Name: VIDAL KAY : 1945 Date/Time: 03/01/2023 05:14 Procedure: XR CHEST 1 VIEW Ordering Provider: WALSH MATTHEW Reason For Exam: Shortness of breath CHEST RADIOGRAPH CLINICAL INDICATION: Shortness of breath TECHNIQUE: AP COMPARISON: 02/28/2023 chest radiograph FINDINGS: Stable positioning of right IJ [place]-Jose catheter and mediastinal drain. Cardiomediastinal: The cardiomediastinal silhouette is stable in size and configuration. Lungs: Small bilateral pleural effusions with associated atelectasis, right greaterthan left. Increased interstitial lung markings concerning for pulmonary edema. No pneumothorax. Osseous structures: No acute osseous abnormality. See findings. Report Dictated on Electronically Signed By: Ravinder Garnett MD Electronically Signed Date/Time: 03/01/2023 5:25 AM EDT ECG 12 lead Sinus tachycardia Ventricular premature complex Nonspecific T abnormalities, lateral leads Borderline ST elevation, anterior leads XR chest 1 view Result Date: 02/28/2023 Patient Name: VIDAL KAY : 1945 [id number] Date/Time: 02/28/2023 11:54 Procedure: XR CHEST 1 VIEW Ordering Provider: WALSH MATTHEW Reason For Exam: Post op open heart surgery CHEST - PORTABLE: CLINICAL INDICATION: Postop open heart surgery. TECHNIQUE: Portable AP COMPARISON: 02/19/2023. FINDINGS/IMPRESSION: Limitations: Slight patient rotation and multiple overlying leads/support devices Lines, tubes, and devices: Endotracheal tube has its tip about 4 cm above the herbert. Right IJ [place]-Jose catheter with its tip in the proximal right pulmonary artery. NG tube with its tip in the proximal stomach. Mediastinal drain and left basilar chest tube in place. Cardiomediastinal silhouette: Postsurgical changes with median sternotomy wires and cardiac valve prosthesis. Lungs/Pleura: Slight coarsening of the interstitial lung markings in part likely reflecting chronic lung changes. There may be element of mild central pulmonary vascular congestion. Mild left basilar atelectasis. No sizable pleural effusions. No pneumothorax. Osseous structures: Degenerative spondylosis in the visualized spine. Soft tissues: No soft tissue abnormality is detected. Report Dictated on Electronically Signed By: Isaias Vasquez MD Electronically Signed Date/Time: 02/28/2023 1:23 PM EDT Transesophageal echocardiogram (LAURIE) with contrast and 3D PRN Result Date: 02/28/2023 Left Ventricle: Left ventricle size is normal. Mildly increased wall thickness. Normal left ventricular systolic function. LVEF pre and post AVR is normal , visually about 60%. Normal wall motion. Right Ventricle: Right ventricle size is normal. Normal systolic function. Aortic Valve: Pre-valve replacement: Severe stenosis of the aortic valve. By planimetery valve area was 1 cm2.Mild regurgitation. s/p Bioprosthetic AVR . well seated, functioning normally (Mean gradient 8 mmHg, V max 2.1 m/s). No perivalvular or valvular regurgitation Mitral Valve: Mildly thickened leaflets. Mild to moderate (1-2+) regurgitation. ECG 12 lead Sinus rhythm Right bundle branch block History/Other: Past Medical History: Past Medical History: Diagnosis Date Cancer (CMS/HCC) (HCC) lymphoma Colitis Coronary artery disease Diabetes mellitus (HCC) Heart murmur Heart valve disease Past Surgical History: Past Surgical History: Procedure Laterality Date CARDIAC CATHETERIZATION CARPAL TUNNEL RELEASE COLONOSCOPY Allergy(ies): No Known Allergies Family History: No family history on file. Social History: Social History Tobacco Use Smoking status: Former Packs/day: 1.00 Years: 20.00 Additional pack years: 0.00 Total pack years: 20.00 Types: Pipe, Cigarettes Start date: 1982 Quit date: 1989 Years since quittin.8 Smokeless tobacco: Current Types: Chew Tobacco comments: snuff Vaping Use Vaping Use: Never used Substance Use Topics Alcohol use: Not Currently Drug use: Not Currently Portions of the information within this encounter were entered using an electronic dictation system. Best attempts were made to edit/proofread the information prior to note completion. Despite the review of information, some errors may remain. If there are questions related to the information contained within the note please contact the signing physician directly. I spent 35 minutes with the pt which involved coordination of care, medical evaluation, review of records, and/or counseling of the pt regarding his/her condition/disease state/prognosis on the date of this note. Case reviewed with Dr. Grissom who is in agreement with assessment and plan as noted above. * Subhash Beal, VINICIO - CAMPUS REP - 03/03/2023 6:56 AM EST Images from the original note were not included. Cardiothoracic Surgery/[facility] Progress Note PATIENT NAME: Vidal Kay DATE: 03/03/23 HPI: Vidal Kay is a 78 y.o. male referred by Dr. Baig for severe coronary artery bypass surgery reshma aortic valve replacement. He presented as an OP for AVR and CABG x [address] Rodríguez. Surgery/Procedure: 02/28/23 Rodríguez: CABG x 2, Tissue AVR, LEVH Interval History: 03/03/23, POD# 04. Afebrile, hypertensive at times, on RA, NSR on tele. Sitting up in chair, Awake and alert this AM. Doing well, pain tolerable. Creatinine still trending up slowly. Chest xray more congested. Review of Systems Constitutional: Negative for chills, diaphoresis and fever. Respiratory: Negative for cough, shortness of breath and wheezing. Cardiovascular: Negative for chest pain, palpitations and leg swelling. Gastrointestinal: Negative for abdominal distention and abdominal pain. Neurological: Negative for dizziness, syncope and light-headedness. Objective: CT output cc/24hrs: 210 UO cc/24hrs: 955 Last BM Date: 03/02/23 Vitals: BP: (!) 151/65, MAP (mmHg): 91, BP Method: Automatic Heart Rate: 63 Resp: 16 Temp: 36.7 C (98 F), Temp Source: Temporal BMI (Calculated): 24.68 BMP: Recent Labs 02/28/23 1029 03/01/23 0005 03/02/23 0011 03/02/23 2350 NA 138 135 132* 128* K 4.6 4.4 4.7 4.7 CL 104 103 98 96* CO2 22 21* 20* 20* BUN 24* 25* 40* 63* CREATININE 0.78 0.77 1.62* 1.74* CALCIUM 9.9 8.9 9.5 9.2 MG 4.1* 2.3 2.4* 2.7* PHOS 4.0 -- -- -- CBC: Recent Labs 03/01/23 0005 03/01/23 1235 03/02/23 0011 03/02/23 2350 WBC 9.4 -- 12.0* 14.3* HGB 7.2* 8.7* 9.4* 9.6* HCT 21.9* 26.6* 28.0* 29.0* PLT 199 -- 215 257 MCV 79.2* -- 80.5 79.9* RDW 15.9* -- 16.8* 17.0* INR: Recent Labs 03/01/23 0005 03/02/23 0011 03/02/23 2350 INR 1.1 1.2* 1.2* Physical Exam Vitals reviewed. Constitutional: General: He is not in acute distress. Appearance: He is not ill-appearing or diaphoretic. Cardiovascular: Rate and Rhythm: Normal rate and regular rhythm. Pulses: Normal pulses. Heart sounds: No murmur heard. Pulmonary: Effort: Pulmonary effort is normal. Breath sounds: No wheezing, rhonchi or rales. Comments: Diminished in bases bilaterally. Abdominal: General: There is no distension. Palpations: Abdomen is soft. Tenderness: There is no abdominal tenderness. Musculoskeletal: General: No swelling. Skin: General: Skin is warm and dry. Capillary Refill: Capillary refill takes less than 2 seconds. Findings: Bruising present. Comments: MSI well approximated. No redness, warmth or drainage noted. Neurological: General: No focal deficit present. Mental Status: He is alert and oriented to person, place, and time. Psychiatric: Mood and Affect: Mood normal. Behavior: Behavior normal. Thought Content: Thought content normal. Judgment: Judgment normal. Assessment: CAD s/p CABG Aortic Valve stenosis S/P Tissue AVR HTN HLD Former smoker DM II Post operative Pulm Management: Normal Post-operative Course Post-operative Atrial Fibrillation: [x]Yes [] No Acute blood loss anemia Plan: Patient Status: Telemetry Continue aspirin, statin and BB. Increase amlodipine to 10mg daily for better BP control. Continue PO amio, will taper at DC. Lasix 40mg IV x1 this AM. Continue to monitor creatinine. Remove correa after diuresis. Remove central line today. Will remove chest tubes today. OAC for valve, will have to discuss with surgeon. Bowel regimen, can DC MOM d/t +BM. Wean O2 as able, goal SpO2>92%. PT/OT: Home with assist PRN (03/02/23) Pulmonary hygiene: IS and Acapella GI prophy: PO protonix DVT prophy:TEDs, SCDs, and Lovenox SubQ Disposition: Possible DC early this week. Central Line: [x]Yes [] No Arterial Line: []Yes [x] No Correa: []Yes [x] No Restraints: []Yes [x] No Patient discussed and plan of day developed from multidisciplinary rounds between Cardiothoracic Surgery (Cardiothoracic Surgeon, JULIO) and Critical Care Attending Cardiac Core Medications: ASA, Statin, and BB EF: 60% (02/28/23) Blood Conservation: Transfused post-op. Subscription Clerk: Dr. Baig * Madhav Yousif, PT - 03/02/2023 10:33 AM EDT Images from the original note were not included. PHYSICAL THERAPY [facility] Initial Evaluation Name/MRN: Vidal Kay ([id number]) Evaluation Date: 03/02/2023 Date of : 1945 Admission Date: 02/28/2023 5:56 AM Age: 78 y.o. Room/Bed: T1-101/T1-101 A Discharge Recommendation: Home with Assist PRN and Continue to assess pending progress Equipment Needed: TBD at next level of care Assessment IMPRESSION: Patient is a 78 year old male status post CABG and aortic valve replacement that occurred on 02/28/2023. He typically is independent with all ADL's, lives in a 2 story home with his , and drives. He was able to ambulate approximately 60 feet today utilizing nezzie with contact guard a ssistance. He was able to complete sit to stands today also with contact guard assistance maintaining sternal precautions. Reported slight light-headedness at end end of ambulation but maintained SPO2 of 94-95%. P&C exercises completed at end of session and educated patient on reps and sets throughout the day. He demonstrated and acknowledged understanding of precautions and plan of care. Anticipate discharge home with assistance as needed pending medical progress. He reports his will be available for assistance as needed. Diagnosis: CAD in [place] artery, status post CABG and aortic valve replacement Prognosis: good Performance Deficits /Impairments: Increased Pain, Decreased Functional Mobility, Decreased ADL status, Decreased ROM, Decreased Strength, and Decreased Endurance Decision Making: Medium Complexity Subjective Patient sitting in chair upon entering room, pleasant, and agreeable to physical therapy. Cleared by nursing. Pain: [place] Pain Ratin = Hurts little more Pain Location: Sternum Past Medical History: Past Medical History: Diagnosis Date Cancer (CMS/HCC) (HCC) lymphoma Colitis Coronary artery disease Diabetes mellitus (HCC) Heart murmur Heart valve disease Past Surgical History: Past Surgical History: Procedure Laterality Date CARDIAC CATHETERIZATION CARPAL TUNNEL RELEASE COLONOSCOPY Admission Diagnosis: Patient Active Problem List Diagnosis Date Noted CAD in [place] artery 02/28/2023 Medical Precautions: No active isolations Proper PPE donned/doffed in accordance with facility standards. Fall Risk: [place] Fall Risk Score: 45 (High Risk) Precautions/Restrictions: Sternal Precautions: No Pushing, No Pulling, No Lifting Greater Than 10 lbs Lines/Drains/Airways: Two chest tubes, PIV, correa catheter, Tele Family/Caregiver Present: none Overall Cognitive Status: WNL Overall Orientation Status: Oriented x4 Vision: wears glasses at all times and and are being used during the eval Hearing: normal Social/Functional History Patient admitted from home. Lives With: Spouse Type of Home: single family home Home Layout: Two Level Home Home Access: Bathroom Shower/Tub: Toilet: Standard Home Equipment: none Homemaking Responsibilities: Independent Receives Help From: None Active Manager Landscape: Yes Prior Level of Function ADL Assistance: Independent Ambulation Assistance: Independent Transfer Assistance: Independent Objective Lower Extremity Assessment AROM: WFL PROM: WFL Strength: WFL Bed Mobility: In chair upon entering room so bed mobility not assessed Transfers Sit to stand: Contact Guard Stand to sit: Contact Guard Ambulation Ambulation 1 Assistive device(s) used: Playrificie Assist level: Contact Guard Distance (ft): 60 Quality of gait: slow connor, postural sway Outcome Measures AM-PAC How much HELP from another person do you currently need Turning from your back to your side while in a flat bed without using bedrails?: A Little Moving from lying on your back to sitting on the side of a flat bed without using bedrails?: A Little Moving to and from a bed to a chair (including a wheelchair)?: A Little Standing up from a chair using your arms (wheelchair or bedside chair)?: A Little Walking in a hospital room?: A Little Stair climbing assessed?: No AM-PAC Inpatient Mobility Raw Score (No Stairs) : 15 [facility] Score: Walked 25 ft or more (i.e. walked outside of room) Plan Pt would benefit from skilled acute PT services to address Strengthening, ROM, Balance Training, Functional Mobility Training, Endurance Training, Gait Training, Stair Training, Neuromuscular Re-Education Training, Safety Education and Training, Patient/Caregiver Training, and Self-Care/ADL Training. Frequency: 5x/week for 4 weeks Barriers: None Safety/Education Safety Safety Devices in place: All fall risk precautions in place, call light within reach, left in chair, gait belt, patient at risk for falls, and nurse notified Restraints: No Education Education Given To: patient Education Provided: PT Role, PT Goals, Gait Training, Plan of Care, Home Exercise Program, and Precautions Education Method: Verbal and Demonstration Barriers to Learning: None Education Outcome: Verbalized Understanding and Demonstrated Understanding Goals Patient Stated Goal: To go home Encounter Problems Encounter Problems (Active) Mobility Patient will ambulate 300 feet with independence and least restrictive device in order to improve safety and independence with mobility. Start: 03/02/23 Expected End: 03/30/23 Patient will ascend and descend 10 stairs with least restrictive device and independence in order to safely negotiate home. Start: 03/02/23 Expected End: 03/30/23 Pain - Adult Transfers Patient will perform bed mobility with independence in order to improve independence and prepare for out of bed mobility. Start: 03/02/23 Expected End: 03/30/23 Patient will complete functional transfer with least restrictive device with independence in order to prepare for ambulation. Start: 03/02/23 Expected End: 03/30/23 Therapy Time Individual Co-treatment Time In 0800 Time Out 0826 Minutes 26 Madhav Yousif, PT Patient's Physical Therapy Plan of Care supervision is transferred to a [facility] Physical Therapist. Goals and/or treatment plan was established in collaboration with patient/family/other representatives. This therapist was wearing an appropriate mask, goggles, and gloves for entire patient encounter. * Mee Knight - 03/02/2023 10:28 AM EDT Department of Internal Medicine Division of Endocrinology, Diabetes, & Metabolism Endocrinology Note Patient Name: Vidal Kay : 1945 AGE: 78 y.o. Room/Bed: [facility] A Admission Date: 02/28/2023 Visit Date: 03/02/2023 Reason for Endocrine Consult: post op heart Provider/Team Requesting Consult: cts PCP: Felix [facility] Out[facility] [employer] Coxswain: No ASSESSMENT: Stress hyperglycemia DM2 with hyperglycemia without long term care administrator insulin Cabgx2, AVR CAD/ HTN/HLD PLAN: BG and gtt requirements reviewed. He is off pressors. He has fair appetite. GFR noted. Will transition off insulin gtt: Communication placed: Give Lantus 24 units and Humalog 2 units x1 now. Wait 30 minutes then discontinue insulin gtt. Will continue Lantus 24 units daily. Start Humalog 8 units tidac with supper tonight. Low-dose Humalog SSI. Diet as tolerated. ICU goal <180 GMF goal <150 POCT BG Q 1 Hypoglycemia per protocol Carb controlled diet ANTICIPATED ENDOCRINE HOME GOING RECOMMENDATIONS: Optimized for Discharge from Endocrine standpoint: No Home Going Endocrine Rx Recommendations-- tbd Outpt Follow Up-- Pcp and states he sees katelyn endocrine SUBJECTIVE/HPI: CHIEF COMPLAINT: No chief complaint on file. Cabgx2, AVR; History of DM2 managed outpatient by PCP Interval history (03/02/23) , son, and daughter at bedside. Nursing at bedside. He went into AF overnight; required IV amiodarone and dobutamine gtt. Both have since been discontinued. Remains on insulin gtt, currently at 3.5 units/hr. He had cheerios for breakfast. Appetite is returning but not at baseline. Denies n/v/d. C/o fatigue. C/o incisional soreness. Has been up for a walk this AM. Type of DM: 2 Onset of DM: 7 years ago Home DM Medication Regimen: farxiga 10, glipizide 10 daily, lantus pens 15 hs DM control (last A1c/glucose data): Lab Results Component Value Date HGBA1C 7.3 (H) 02/19/2023 Does wear dexcom g6- on right arm- no lifter/driver with him Glucose Date/Time Value Ref Range Status 03/02/2023 10:17 AM 184 (H) 70 - 100 mg/dL Final 03/02/2023 09:13 AM 216 (H) 70 - 100 mg/dL Final 03/02/2023 08:08 AM 185 (H) 70 - 100 mg/dL Final 03/02/2023 07:02 AM 174 (H) 70 - 100 mg/dL Final 03/02/2023 06:17 AM 131 (H) 70 - 100 mg/dL Final 03/02/2023 04:52 AM 106 (H) 70 - 100 mg/dL Final Review of Systems All other systems reviewed and are negative. ROS negative except for those mentioned in HPI. OBJECTIVE: Vitals: 03/02/23 0400 03/02/23 0500 03/02/23 0600 03/02/23 0700 BP: (!) 165/73 (!) 149/73 (!) 168/69 (!) 177/68 BP Location: Left arm Patient Position: Lying Pulse: 62 61 59 62 Resp: 20 Temp: 36.6 C (97.8 F) TempSrc: Oral SpO2: 95% 95% 95% 90% Weight: 156 lb 15.5 oz (71.2 kg) Height: Physical Exam Vitals and nursing note reviewed. Constitutional: General: He is not in acute distress. Comments: Lean build, up-to-chair. HENT: Head: Normocephalic. Mouth/Throat: Mouth: Mucous membranes are moist. Eyes: Extraocular Movements: Extraocular movements intact. Cardiovascular: Rate and Rhythm: Normal rate. Rhythm irregular. Pulses: Normal pulses. Heart sounds: Normal heart sounds. Comments: Trace generalized edema. CT noted. Pulmonary: Effort: Pulmonary effort is normal. Breath sounds: Normal breath sounds. Abdominal: General: Bowel sounds are normal. Palpations: Abdomen is soft. Skin: General: Skin is warm and dry. Neurological: General: No focal deficit present. Mental Status: He is alert and oriented to person, place, and time. Psychiatric: Mood and Affect: Mood normal. 24 hour intake/output: Intake/Output Summary (Last 24 hours) at 03/02/2023 1028 Last data filed at 03/02/2023 0900 Gross per 24 hour Intake 3425 ml Output 878 ml Net 2547 ml Diet: Adult diet Regular; No Added Salt (3-4 gm) Medications (as per EMR): HomeMeds: Current Outpatient Medications Medication Instructions ascorbic acid (VITAMIN C) 1,000 mg, Oral, Daily aspirin 81 mg, Oral, Daily dapagliflozin (FARXIGA) 10 mg, Oral, Daily ferrous sulfate 325 (65 Fe) MG tablet 1 tablet, Oral, Daily glipiZIDE (GLUCOTROL) 10 mg, Oral, Daily glucosamine-chondroitin 500-400 MG tablet 1 tablet, Oral, 3 times daily insulin glargine (LANTUS) 15 Units, SubCUTAneous, Nightly mesalamine (LIALDA) 2,400 mg, Oral, Daily with breakfast, Do not crush, chew, or split. Multiple Vitamins-Minerals (multivitamin with minerals) tablet 1 tablet, Oral, Daily mupirocin (Bactroban) 2 % ointment Apply liberal amount per nostril the night before surgery and then again the morning of surgery ramipril (ALTACE) 5 mg, Oral, Daily Scheduled Meds:acetaminophen, 1,000 mg, Oral, q8h amiodarone, 400 mg, Oral, BID amLODIPine, 5 mg, Oral, Daily aspirin, 81 mg, Oral, Daily chlorhexidine, 15 mL, Mouth/Throat, BID enoxaparin, 40 mg, SubCUTAneous, Daily ferrous sulfate, 325 mg, Oral, Daily Lidocaine, 1 patch, Topical, Daily magnesium hydroxide, 30 mL, Oral, Daily metoclopramide, 10 mg, Oral, BID Or metoclopramide, 10 mg, IntraVENous, BID metoprolol tartrate, 25 mg, Oral, BID mupirocin, , Nasal, BID pantoprazole, 40 mg, Oral, qAM AC polyethylene glycol (PEG) 3350, 17 g, Oral, Daily rosuvastatin, 40 mg, Oral, Nightly senna-docusate sodium, 2 tablet, Oral, Nightly sodium chloride 0.9%, 10 mL, IntraVENous, 2 times per day Continuous Infusions:insulin regular, 1-50 Units/hr, Last Rate: 3.5 Units/hr (03/02/23 1017) PRN Meds:PRN medications: calcium gluconate, dextrose, dextrose, glucagon (rDNA), glucose, hydrALAZINE OR hydrALAZINE, magnesium sulfate OR magnesium sulfate, ondansetron ODT OR ondansetron, oxyCODONE OR oxyCODONE, potassium chloride OR potassium chloride OR potassium chlorid e, potassium chloride CR, sodium chloride, sodium chloride 0.9% Diagnostic Workup: I reviewed pertinent Laboratory results, Radiographic results, and Other Clinical Notes at the timeof today's encounter. Labs: No components found for: LABA1C No components found for: EAG Lab Results Component Value Date NA 132 (L) 03/02/2023 K 4.7 03/02/2023 CL 98 03/02/2023 CO2 20 (L) 03/02/2023 BUN 40 (H) 03/02/2023 CREATININE 1.62 (H) 03/02/2023 GLUCOSE 123 (H) 03/02/2023 CALCIUM 9.5 03/02/2023 No results found for: CHLPL, CHOL No results found for: TRIG No results found for: HDL No results found for: LDLCALC No results found for: VLDL No results found for: CHOLHDLRATIO No results found for: [id number] No results found for: TSH, [id number], N1HOGXK, THYROIDAB Radiology reportsas per the Radiologist Radiology: ECG 12 lead Result Date: 03/01/2023 Atrial fibrillation Anterior infarct, acute XR chest 1 view Result Date: 03/01/2023 Patient Name: [facility]IDAL [facility]AY : 1945 [id number] Date/Time: 03/01/2023 05:14 Procedure: XR CHEST 1 VIEW Ordering Provider: WALSH MATTHEW Reason For Exam: Shortness of breath CHEST RADIOGRAPH CLINICAL INDICATION: Shortness of breath TECHNIQUE: AP COMPARISON: 02/28/2023 chest radiograph FINDINGS: Stable positioning of right IJ Hickory-Jose catheter and mediastinal drain. Cardiomediastinal: The cardiomediastinal silhouette is stable in size and configuration. Lungs: Small bilateral pleural effusions with associated atelectasis, right greaterthan left. Increased interstitial lung markings concerning for pulmonary edema. No pneumothorax. Osseous structures: No acute osseous abnormality. See findings. Report Dictated on Electronically Signed By: Ravinder Garnett MD Electronically Signed Date/Time: 03/01/2023 5:25 AM EDT ECG 12 lead Sinus tachycardia Ventricular premature complex Nonspecific T abnormalities, lateral leads Borderline ST elevation, anterior leads XR chest 1 view Result Date: 02/28/2023 Patient Name: VIDAL KAY : 1945 [id number] Date/Time: 02/28/2023 11:54 Procedure: XR CHEST 1 VIEW Ordering Provider: WALSH MATTHEW Reason For Exam: Post op open heart surgery CHEST - PORTABLE: CLINICAL INDICATION: Postop open heart surgery. TECHNIQUE: Portable AP COMPARISON: 02/19/2023. FINDINGS/IMPRESSION: Limitations: Slight patient rotation and multiple overlying leads/support devices Lines, tubes, and devices: Endotracheal tube has its tip about 4 cm above the herbert. Right IJ Hickory-Jose catheter with its tip in the proximal right pulmonary artery. NG tube with its tip in the proximal stomach. Mediastinal drain and left basilar chest tube in place. Cardiomediastinal silhouette: Postsurgical changes with median sternotomy wires and cardiac valve prosthesis. Lungs/Pleura: Slight coarsening of the interstitial lung markings in part likely reflecting chronic lung changes. There may be element of mild central pulmonary vascular congestion. Mild left basilar atelectasis. No sizable pleural effusions. No pneumothorax. Osseous structures: Degenerative spondylosis in the visualized spine. Soft tissues: No soft tissue abnormality is detected. Report Dictated on Electronically Signed By: Isaias Vasquez MD Electronically Signed Date/Time: 02/28/2023 1:23 PM EDT Transesophageal echocardiogram (LAURIE) with contrast and 3D PRN Result Date: 02/28/2023 Left Ventricle: Left ventricle size is normal. Mildly increased wall thickness. Normal left ventricular systolic function. LVEF pre and post AVR is normal , visually about 60%. Normal wall motion. Right Ventricle: Right ventricle size is normal. Normal systolic function. Aortic Valve: Pre-valve replacement: Severe stenosis of the aortic valve. By planimetery valve area was 1 cm2.Mild regurgitation. s/p Bioprosthetic AVR . well seated, functioning normally (Mean gradient 8 mmHg, V max 2.1 m/s). No perivalvular or valvular regurgitation Mitral Valve: Mildly thickened leaflets. Mild to moderate (1-2+) regurgitation. ECG 12 lead Sinus rhythm Right bundle branch block History/Other: Past Medical History: Past Medical History: Diagnosis Date Cancer (CMS/HCC) (HCC) lymphoma Colitis Coronary artery disease Diabetes mellitus (HCC) Heart murmur Heart valve disease Past Surgical History: Past Surgical History: Procedure Laterality Date CARDIAC CATHETERIZATION CARPAL TUNNEL RELEASE COLONOSCOPY Allergy(ies): No Known Allergies Family History: No family history on file. Social History: Social History Tobacco Use Smoking status: Former Packs/day: 1.00 Years: 20.00 Additional pack years: 0.00 Total pack years: 20.00 Types: Pipe, Cigarettes Start date: 1982 Quit date: 1989 Years since quittin.8 Smokeless tobacco: Current Types: Chew Tobacco comments: snuff Vaping Use Vaping Use: Never used Substance Use Topics Alcohol use: Not Currently Drug use: Not Currently Portions of the information within this encounter were entered using an electronic dictation system. Best attempts were made to edit/proofread the information prior to note completion. Despite the review of information, some errors may remain. If there are questions related to the information contained within the note please contact the signing physician directly. I spent 35 minutes with the pt which involved coordination of care, medical evaluation, review of records, and/or counseling of the pt regarding his/her condition/disease state/prognosis on the date of this note. Case reviewed with Dr. Grissom who is in agreement with assessment and plan as noted above. * Subhash Beal, V[facility]ICIO - CAMPUS REP - 03/02/2023 6:07 AM EDT Images from the original note were not included. Cardiothoracic Surgery/[facility] Progress Note PATIENT NAME: Vidal Kay DATE: 03/02/23 HPI: Vidal Kay is a 78 y.o. male referred by Dr. Baig for severe coronary artery bypass surgery reshma aortic valve replacement. He presented as an OP for AVR and CABG x [address] Rodríguez. Surgery/Procedure: 02/28/23 Rodríguez: CABG x 2, Tissue AVR, LEVH Interval History: 03/02/23, POD# 03: Afebrile, NSR on tele, BP hypertensive, on 1L NC. Was in afib yesterday morning,converted with amio and BB. In the afternoon, became hypotensive, stated on pressor support and dobutamine for low CI. This AM, sitting up in chair, awake and alert. Just returned to room from ambulating with nursing. Pain tolerable. No BM yet but passing gas. No major complaints this AM. Current IV Drips: Amiodarone- 0.5mg/min Dobutamine- 2.5mcg/kg/min Insulin A-line: Arterial Line BP 1: 150/52 Invasive Hemodynamic Monitoring Hemodynamic Monitoring Additional Assessment: Yes Blood Temperature: 36.9 C (98.4 F) PAP: 50/13 PAP (Mean): 26 mmHg CVP (mmHg): 13 mmHg CVP (mean): 8 mmHg CO (L/min): 6.2 L/min CI (L/min/m2): 3.54 L/min/m2 SVR (dyne*sec)/cm5: 761 (dyne*sec)/cm5 Hickory Jose (cm): 52 cm Hickory Jose Waveform: Appropriate waveforms Review of Systems Constitutional: Negative for chills, diaphoresis and fever. Respiratory: Negative for cough, shortness of breath and wheezing. Cardiovascular: Negative for chest pain, palpitations and leg swelling. Gastrointestinal: Positive for abdominal distention. Negative for abdominal pain. Neurological: Negative for dizziness, syncope and light-headedness. Objective: CT output cc/24hrs: 210 UO cc/24hrs: 738 Last BM Date: (prior to surgery) Vitals: BP: (!) 149/73, MAP (mmHg): 96, BP Method: Automatic Heart Rate: 61 Resp: 20 Temp: 36.6 C (97.8 F), Temp Source: Oral BMI (Calculated): 24.75 BMP: Recent Labs 02/28/23 1029 03/01/23 0005 03/02/23 0011 NA 138 135 132* K 4.6 4.4 4.7 CL 104 103 98 CO2 22 21* 20* BUN 24* 25* 40* CREATININE 0.78 0.77 1.62* CALCIUM 9.9 8.9 9.5 MG 4.1* 2.3 2.4* PHOS 4.0 -- -- CBC: Recent Labs 02/28/23 1232 03/01/23 0005 03/01/23 1235 03/02/23 0011 WBC 16.7* 9.4 -- 12.0* HGB 8.8* 7.2* 8.7* 9.4* HCT 27.3* 21.9* 26.6* 28.0* PLT 228 199 -- 215 MCV 79.4* 79.2* -- 80.5 RDW 16.0* 15.9* -- 16.8* INR: Recent Labs 02/28/23 1029 03/01/23 0005 03/02/23 0011 INR 1.3* 1.1 1.2* Physical Exam Vitals reviewed. Constitutional: General: He is not in acute distress. Appearance: He is not ill-appearing or diaphoretic. Cardiovascular: Rate and Rhythm: Normal rate and regular rhythm. Pulses: Normal pulses. Heart sounds: No murmur heard. Pulmonary: Effort: Pulmonary effort is normal. Breath sounds: No wheezing, rhonchi or rales. Comments: Diminished in bases bilaterally. Abdominal: General: There is distension. Palpations: Abdomen is soft. Musculoskeletal: General: No swelling. Skin: General: Skin is warm and dry. Capillary Refill: Capillary refill takes less than 2 seconds. Findings: Bruising present. Comments: MSI well approximated. No redness, warmth or drainage noted. Neurological: General: No focal deficit present. Mental Status: He is alert and oriented to person, place, and time. Psychiatric: Mood and Affect: Mood normal. Behavior: Behavior normal. Thought Content: Thought content normal. Judgment: Judgment normal. Assessment: CAD s/p CABG Aortic Valve stenosis S/P Tissue AVR HTN HLD Former smoker DM II Post operative Pulm Management: Normal Post-operative Course Post-operative Atrial Fibrillation: [x]Yes [] No Acute blood loss anemia Plan: Patient Status: Telemetry Stop dobutamine gtt. Give PO anti-hypertensive's this AM. -May need to titrate up throughout today to maintain goal SBP<130. -PRN hydralazine. Stop IV amio, start PO. Will taper as OP. Bowel regimen. -Add MOM today. -Continue reglan -Will add lactulose if no BM but tomorrow. Creatinine 0.77->1.62. -Re-check BMP later today. DVT prophy. OAC for valve, will discuss with surgeon. Wean O2 as able, goal SpO2>92%. PT/OT: Will need assessed. Pulmonary hygiene: IS and Acapella GI prophy: PO protonix DVT prophy:TEDs, SCDs, and Lovenox SubQ Disposition: TBD Central Line: [x]Yes [] No Arterial Line: []Yes [x] No Correa: []Yes [x] No Restraints: []Yes [x] No Patient discussed and plan of day developed from multidisciplinary rounds between Cardiothoracic Surgery (Cardiothoracic Surgeon, JULIO) and Critical Care Attending Cardiac Core Medications: ASA, Statin, and BB EF: 60% (02/28/23) Blood Conservation: Transfused post-op. Subscription Clerk: Dr. Baig Associated attestation - Greg Byrd MD - 03/02/2023 2:23 PM EDT I have personally performed a [id number] diagnostic evaluation on this patient on date of yfvlzdk02/4/2023. History, labs, imaging studies, and electronic medical record have been reviewed by me. This note documented by the []fish housekeeper [x]JULIO reflects my history, exam, and medical decision making. I have reviewed and agree with the care plan. Changes were made in the orders as necessary. ROS documentation was reviewed and negative unless otherwise stated in HPI. Additional pertinent interval history, ROS, and physical exam findings: None Assessment: CAD s/p CABG AV stenosis s/p tissue AVR DM Acute kidney injury Plan: - Anti-hypertensives, uptitrate as able - PO amio - Serial BMP - Aggressive bowel regimen * VINICIO Friend CNP - 03/01/2023 4:07 PM EDT Pt HR has recovered - his CI is 2.4 / SVR 1200 / CVP 18 - Keep on dobutamine 2.5 maps >65 - get up out of bed to chair - give lasix tonight 40 mg . * VINICIO Friend CNP - 03/01/2023 6:34 AM EDT Images from the original note were not included. [facility]acic Surgery/[facility] Progress Note PATIENT NAME: Vidal Kay DATE: 03/01/23 HPI: Vidal Kay is a 78 y.o. male referred by Dr. Baig for severe coronary artery bypass surgery reshma aortic valve replacement. He presented as an OP for AVR and CABG x [address] Rodríguez. Surgery: 02/28/23 Rodríguez: CABG x 2, Tissue AVR, LEVH Interval History: 03/01/23, POD#2 Over night pt went into A-fib and was bolused and loaded with amiodarone IV - HR 100-140's, CXR wet, CT Output >500. He was actually HTN until he went into A-Fib. No acute issues, labs HGB 7.2 Review of Systems Constitutional: Negative for diaphoresis, fatigue and fever. Respiratory: Positive for shortness of breath. Negative for cough and wheezing. Cardiovascular: Positive for chest pain. Negative for palpitations and leg swelling. Gastrointestinal: Negative for abdominal distention, constipation and diarrhea. Skin: Negative for color change, pallor and rash. Objective: Vitals: BP: (!) 176/63, MAP (mmHg): 96, BP Method: Arterial line Heart Rate: 106 Resp: 13 Temp: 37 C (98.6 F), Temp Source: Core BMI (Calculated): 24.75 Pacer Wires: capped CXR: BMP: Recent Labs 02/28/23 1029 03/01/23 0005 NA 138 135 K 4.6 4.4 CL 104 103 CO2 22 21* BUN 24* 25* CREATININE 0.78 0.77 CALCIUM 9.9 8.9 MG 4.1* 2.3 PHOS 4.0 -- CBC: Recent Labs 02/28/23 1029 02/28/23 1232 03/01/23 0005 WBC 11.0* 16.7* 9.4 HGB 9.0 7.5* 8.8* 7.2* HCT 23.0* 27.3* 21.9* PLT 203 228 199 MCV 79.4* 79.4* 79.2* RDW 15.8* 16.0* 15.9* INR: Recent Labs 02/28/23 1029 03/01/23 0005 INR 1.3* 1.1 Physical Exam Cardiovascular: Rate and Rhythm: Normal rate and regular rhythm. Heart sounds: Normal heart sounds. No murmur heard. No friction rub. Pulmonary: Effort: Pulmonary effort is normal. Skin: General: Skin is warm and dry. Capillary Refill: Capillary refill takes less than 2 seconds. Findings: Bruising and ecchymosis present. Comments: MSCI Dry and intact RIJ swan\ CT sites intact Neurological: Mental Status: He is alert. Psychiatric: Behavior: Behavior is cooperative. Assessment: CAD Aortic Valve stenosis S/P Tissue AVR HTN HLD Former smoker DM II Plan - DC swan - DC art line - UOOB to chair - change to PO protonix - Heparin for DVT - start home meds hold home SEAN - give lasix 40 mg IVP x 1 - Amiodarone re-bolus - Start metoprolol - Wean nipride then DC - leave correa for one more day - PT/OT today eval - Start OAC tomorrow for tissue valve - monitor gastric bubble - Discuss with attending the transfusion of one unit of blood then the lasix - Start Reglan for gastric bubble Associated attestation - Yasmani Matt MD - 03/01/2023 2:28 PM EDT I have personally seen the patient and examined along with the JULIO/resident team. I personally obtained the vaughan and relevent portions of the history and performed physical exam. I reviewed the chart including MAR , labs and radiology and discussed the patient's plan of action with the resident/JULIO.This note reflects my plan of care as I have edited the note to reflect my findings and my assessment and plan. Date of service: 03/01/23 Discussed with: []Residents [x]Patient/Family [x]RN [x]Consultants []SW/TCC []Other [x]JULIO Personally Reviewed: [x]Epic notes [x]Radiology studies [x]Labs [x]EKG []Other Assessment: -mvCAD s/p CABG -non-rheumatic aortic valve stenosis s/p bioprosthetic AVR -HTN -HLD -Prior tobacco use -DM2 -Ulcerative colitis -reactive leukocytosis -ABLA Plan: -CI dropped after patient developed post-op atrial fibrillation. He also received afterload reducing medications. Will keep swan for now. Start dobutamine with high SVR and low CI. Wean norepi. -Will transfuse 1 PRBC and give gentle crystalloid bolus -Keep arterial line at least until CI stabilizes and vasoactive meds weaned off -Keep correa -hold on lasix for now -Continue post-op pulmonary hygiene measures -Mobilize to chair later today pending hemodynamics. -Remainder as per JULIO documentation Excluding procedures, the total critical care time invested in the care of this patient with life threatening/unstable organ failure today is at least 35 minutes. This includes direct patient contact, review of medical record, management of life support systems, review of data including imaging andlabs, discussions with other team members, patient's family and physicians. * Marlys Robbins RCP - 02/28/2023 3:01 PM EDT Went to access pt for extubation. I couldn't get him to complete a NIF. I feel a bit too groggy still. Slow to respond. Spoke to RN about it. She will call me when he is ready * Marlys Robbins RCP - 02/28/2023 2:36 PM EDT Placed pt on TC at 1425 1430 RR 9.2 Vt 404 RSBI 22 1445 RR 10 Vt 654 RSBI 15 1450 RR 10 Vt 525 RSBI 19 Pt tolerated 30 mins on TC-RN aware documented in this [facility]11-07-2023 Note* Care Coordination - Susie Mitchell RN - 03/05/2023 3:09 PM EST Spoke with patient and family at bedside, aware HHC is set up through [facility], no further discharge needs expressed. [facility]11-07-2023 Note* Care Coordination - Susie Mitchell RN - 03/05/2023 3:09 PM EST Spoke with patient and family at bedside, aware HHC is set up through [facility], no further discharge needs expressed. [facility]11-07-2023 Miscellaneous Notes* Care Coordination - Susie Mitchell RN - 03/05/2023 3:09 PM EST Spoke with patient and family at bedside, aware HHC is set up through [facility], no further discharge needs expressed. * Care Coordination - Unknown Case Management - 03/05/2023 1:35 PM EST Patient Choice Patient Name: VIDAL KAY Date of : 1945 All Providers Sent Referral Name: [facility] Phone: [phone] Address: [address] [place] [address] * Care Coordination - Susie Mitchell RN - 03/04/2023 9:38 AM EST Images from the original note were not included. Care Management Progress Note Patient remains in CTV ICU s/p CABG x 2 and AVR POD # 4. On RA, VSS, in SB on tele, SCr down trending-auto diuresis, started Eliquis, and PT recommending home with assist. Patient from home with MARIANA following for home care needs. Discharge Milestones and Delays Expected Date/Time: 03/05/[address] discharge order Complete med reconciliation Case mgmt discharge readiness Clinical Stability Diagnsotic Workup Expected Discharge History Expected Date/Time Set By Reviewed At 03/05/2023 Susie Mitchell RN 03/04/2023 9:38 AM 03/07/2023 Citlalli Tinoco RN 02/28/2023 11:12 AM 03/07/2023 Yary Alberts BOTTLER HELPER - CAMPUS REP 02/28/2023 6:27 AM 03/07/2023 Phoenix Walsh BOTTLER HELPER - CAMPUS REP 02/28/2023 6:27 AM Length of Stay (Days): 4 GMLOS: 5.7 * Care Plan - Kay Dumont RN - 03/04/2023 12:14 AM EST The patient is Moderately Stable - Low risk of patient condition declining or worsening The patient's goals for the shift include sleep The clinical goals for the shift include keep pt safe Over the shift, the patient did not make progress toward the following goals. Barriers to progression include pt not understanding his plan of care. Recommendations to address these barriers include educating pt about his plan of care. * Home Care - Joi Urias LPN - 03/03/2023 10:55 AM EST Start PACC Note Home Health Referral Educated patient on Home Care and services available. Patient offered choice of available HHC and agreeable to SN/PT services with [facility]. Care Types: [facility] Program Isolation Precautions: No active isolations Social Determinates of Health: Tobacco Use: High Risk (02/28/2023) Patient History Smoking Tobacco Use: Former Smokeless Tobacco Use: Current Passive Exposure: Not on file Social History Substance and Sexual Activity Alcohol Use Not Currently Social History Substance and Sexual Activity Drug Use Not Currently Does the patient have any financial resource strain? No Does the patient have any food insecurities? No Does the patient have any housing instabilities? No If any of the above is noted as yes - consider a FLEET OPERATIONS MANAGER evaluation once the patient returns home. START PATIENT REGISTRATION INFORMATION Order Information Order Signing Physician: Eduar Rodríguez MD Service Ordered RN ?: Yes Service Ordered PT ?: Yes Service Ordered OT ?: No Service Ordered ST ?: No Service Ordered FLEET OPERATIONS MANAGER?:No Service Ordered HEALTH SANITARIAN?: No Following Physician: Eduar Rodríguez MD Following Physician Overseeing Physician: Eduar Rodríguez MD (Required for Residents only) Agreeable to Follow? Yes Date/Time of Call 03/03/23 10:55 AM, Spoke with: Office is closed verified in [facility] Care Coordination Same Day SOC?: No Primary Care Physician: Felix Bill Primary Care Physician Primary Care Physician Address: [address] [place] [address] / [facility] [id number] Visit Instructions: N/A Service Discharge Location Type: Home with Home Health Care Service Facility Name: N/A Service Floor Facility: N/A Service Room No: N/A Demographics Patient Last Name: Eliza Patient First Name: Vidal Language/Communication Barrier: N/A Service Address: [address] [place] [address] Service City: [facility] ST: [place] Service ZIP: [address] Service (home) Other phone numbers: [phone] Telephone Information: Emergency Contact: Extended Emergency Contact Information Primary Emergency Contact: Lilian Kay Mobile Relation: Spouse Admission Information Admit Date: 02/28/2023 Patient status at discharge: Inpatient Admitting Diagnosis Nonrheumatic aortic (valve) stenosis [I35.0] 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] CAD in [place]western [place] artery [I25.10] Caregiver Information Caregiver First Name: Lilian Caregiver Last Name: Eliza Caregiver Relationship to Patient spouse Caregiver Caregiver Notes: N/A [employer] List No END PATIENT REGISTRATION INFORMATION Pt Home Health goal to remain at home COVID Status 1. Do you have any upper respiratory symptoms (cough, SOB, Fever)? No 2. Have you been exposed to anyone with COVID-19 Virus? No Answer only if pending or positive for COVID-19? 1. Agreeable to wear PPE at each visit? No 2. Is the hospital supplying them with PPE upon Discharge? No Start PACC Summary General Report/ Additional Comments Vidal Kay is a 78 y.o. male referred by Dr. Baig for severe coronary artery bypass surgery reshma aortic valve replacement. He presented as an OP for AVR and CABG x [address] Rodríguez. Discharge Date: TBD Referral Source-PACC: (Hospital/Unit): [facility] / T1/T1 A End PACC Note * Care Coordination - Susie Mitchell RN - 03/01/2023 2:21 PM EDT Care Managment Initial Assessment Date: 03/01/2023 Patient Name: Vidal Kay : 1945 Patient Information Source of Information: Patient Cognition/Language: WFL - Within Functional Limits Permission given to speak with patient traffic workforce representative/caregiver as indicated: Confirmation of Payer with patient/family: Yes Payer Name: [employer] Medicare [place]: Yes Confirmation of Primary Care Physician: Confirmed PCP Name: Dr. Bill Seen in last 2 years?: Yes Primary Caregiver: Self If assistance needed, confirmed caregiver ready, willing and able to care for patient at discharge: Confirmed with: Living Arrangements Current Residence: House Number of Floors 2 (but lives on top level) Number of Entry Steps: (13 interior steps to 2nd level) Bed/Bath Levels: Both second floor Facility: Facility Name: Plan to Return: Lives with: Spouse/significant other Support Systems: Spouse/significant other Activities of Daily Living Ambulation: Independent Bathing/Dressing: Independent Elimination/Continence/Toileting: Independent Feeding: Independent Who Assists with Activities of Daily Living: Instrumental Activities of Daily Living Prescription Coverage: Yes Pharmacy Used: [facility] Medication Management: Independent Transportation/Shopping: Independent Transportation Mode: Car Needs Assistance with Transportation at Discharge: No Meal Preparation: Independent Laundry/Cleaning: Independent Finances/Bill Paying: Independent Communication: Independent Types of Care Services/Equipment Utilized Care Services: Dialysis Type: Durable Medical Equipment: Patient's Goal/Discharge Plan Patient expects to be discharged to: home Discharge Planning Actions: Continue to follow Patient's Choice Rights and [employer] and Collaborative Relationships Disclosed as Indicated for Post-Acute Care: Interdisciplinary Team Engagement: PT/OT, Home Health Care Social Work Referral for: Additional Information: Patient admitted to CTV ICU s/p CABG x 2 and AVR POD # 1. Spoke with patient at bedside, introduced self and role. Patient from home with , is independent, has PCP and prescription coverage, will have a ride home and PEÑA following for home care needs. Susie Mitchell RN * Home Care - Neyda Rust RN - 02/28/2023 8:43 AM EDT Sales Management Trainee following case for Discharge Needs. documented in this [facility]11-07-2023 NoteDischarge Summary Vidal Kay : 1945 ADMIT DATE: 02/28/2023 DISCHARGE DATE: 03/05/2023 PRIMARY CARE PHYSICIAN: Felix Bill VISIT STATUS: Admission CODE STATUS: Full Code DISCHARGE DIAGNOSES: Principal Problem: CAD in [place]western [place] artery HOSPITAL COURSE: Vidal Kay is a 78 y.o. male referred by Dr. Baig for severe coronary artery bypass surgery and a aortic valve replacement. He presented as an OP for AVR and CABG x [address] Rodríguez. 02/28/23 Rodríguez: CABG x 2, Tissue AVR, LEVH 03/05/23 US guided thoracentesis Pt is now S/P Right sided thoracentesis waiting for CXR prior to DC SIGNIFICANT DIAGNOSTIC STUDIES: See EMR CONSULTANTS: See EMR RECOMMENDED NEXT STEPS: CAD s/p CABG Aortic Valve stenosis S/P Tissue AVR Post Op A-fib HTN HLD Former smoker DM II Post operative Pulm Management: Normal Post-operative Course Post-operative Atrial Fibrillation: [x]Yes [] No Plan: Patient Status: Telemetry Right Effusion remains will plan IR guided thoracentesis Cut Pace wires today Continue aspirin, statin and BB on amlodipine for BP Continue PO amio cut to 200 mg daily Eliquis PO for tissue valve Likely DC later today PT/OT: Home with assist PRN (03/05/23) Pulmonary hygiene: IS and Acapella GI prophy: PO protonix DVT prophy:TEDs, SCDs, and Lovenox SubQ Disposition: DC to home with home health Central Line: []Yes [x] No Arterial Line: []Yes [x] No Correa: []Yes [x] No Restraints: []Yes [x] No Patient discussed and plan of day developed from multidisciplinary rounds between Cardiothoracic Surgery (Cardiothoracic Surgeon, JULIO) and Critical Care Attending Cardiac Core Medications: ASA, Statin, and BB EF: 60% (02/28/23) Blood Conservation: Transfused post-op. Subscription Clerk: Dr. Baig DISCHARGE MEDICATIONS: Medication List START taking these medications acetaminophen 500 MG tablet Commonly known as: Tylenol Take 2 tablets (1,000 mg) by mouth in the morning and 2 tablets (1,000 mg) at noon and 2 tablets (1,000 mg) before bedtime. Do all this for 10 days. amiodarone 200 MG tablet Commonly known as: Pacerone Take 1 tablet (200 mg) by mouth daily. Start taking on: March 06, 2023 amLODIPine 10 MG tablet Commonly known as: Norvasc Take 1 tablet (10 mg) by mouth daily. Start taking on: March 06, 2023 apixaban 5 MG tablet Commonly known as: Eliquis Take 1 tablet (5 mg) by mouth 2 times daily. metoprolol tartrate 25 MG tablet Commonly known as: Lopressor Take 1 tablet (25 mg) by mouth 2 times daily. oxyCODONE 5 MG immediate release tablet Commonly known as: Roxicodone Take 1 tablet (5 mg) by mouth every 6 hours as needed for moderate pain (4-6) for up to 5 days. pantoprazole 40 MG EC tablet Commonly known as: ProtoNix Take 1 tablet (40 mg) by mouth every morning (before breakfast). Do not crush, chew, or split. Start taking on: March 06, 2023 rosuvastatin 40 MG tablet Commonly known as: Crestor Take 1 tablet (40 mg) by mouth Nightly. CHANGE how you take these medications insulin glargine 100 UNIT/ML injection Commonly known as: Lantus Inject 25 Units under the skin Nightly. What changed: how much to take CONTINUE taking these medications ascorbic acid 1000 MG tablet Commonly known as: Vitamin C aspirin 81 MG EC tablet dapagliflozin 10 MG Commonly known as: Farxiga ferrous sulfate 325 (65 Fe) MG tablet glipiZIDE 5 MG tablet Commonly known as: Glucotrol glucosamine-chondroitin 500-400 MG tablet mesalamine 1.2 g EC tablet Commonly known as: Lialda multivitamin with minerals tablet STOP taking these medications chlorhexidine 0.12 % solution Commonly known as: Peridex mupirocin 2 % ointment Commonly known as: Bactroban ramipril 5 MG capsule Commonly known as: Altace Where to Get Your Medications These medications were sent to [facility] [address] [place], [place] [id number] Hours: Saturday to Saturday 10 am to 6 pm acetaminophen 500 MG tablet amiodarone 200 MG tablet amLODIPine 10 MG tablet apixaban 5 MG tablet insulin glargine 100 UNIT/ML injection metoprolol tartrate 25 MG tablet oxyCODONE 5 MG immediate release tablet pantoprazole 40 MG EC tablet rosuvastatin 40 MG tablet DIET: Adult diet Regular; No Added Salt (3-4 gm) ACTIVITY: No heavy lifting. COMPLEXITY OF FOLLOW UP: [] Moderate Complexity: follow up within 7-14 calendar days ([id number]) [x] Severe Complexity: follow up within 7 calendar days (97039) FOLLOW UP TESTING, PENDING RESULTS OR REFERRALS AT TRANSITIONAL CARE VISIT: [] Yes [x] No PENDING STUDIES: CXR DISPOSITION: Home with Home Health Care FACILITY/HOME CARE AGENCY NAME: [facility] Follow up with Phoenix Walsh, BOTTLER HELPER - CAMPUS REP [address] [phone] Follow up on 02/28 (more content not included)...[facility] 03-05-2023 Note* Care Coordination - Unknown Case Management - 03/05/2023 1:35 PM EST Patient Choice Patient Name: VIDAL KAY Date of : 1945 All Providers Sent Referral Name: [facility] Phone: [phone] Address: [address] [place] [id number] [id number]* Care Coordination - Unknown Case Management - 03/05/2023 1:35 PM EST Patient Choice Patient Name: VIDAL KAY Date of : 1945 All Providers Sent Referral Name: [facility] Phone: [phone] Address: [address] [place] [address] Alisha [id number] NoteOCCUPATIONAL THERAPY [facility] Initial Evaluation Name/MRN: Vidal Kay ([id number]) Evaluation Date: 03/05/2023 Date of : 1945 Admission Date: 02/28/2023 5:56 AM Age: 78 y.o. Room/Bed: T1-101/T1 A Discharge Recommendation: Home with Assist PRN Equipment Needed: none Assessment IMPRESSION: OT eval complete, pt s/p CABG x2, AVR. Currently close to baseline for ADLs and functional mobility. Pt supervision for mobility, toilet transfers and LE dressing. Increased time needed for sit<>stand. At this time recommend home with assist PRN. Performance Deficits /Impairments: Decreased Endurance and Decreased High Level IADLs Prognosis: Good Decision Making: Low Complexity Subjective Pt up in recliner upon entry, agreeable to therapy Pain: RN managing pain. Past Medical History: Past Medical History: Diagnosis Date Cancer (CMS/HCC) (HCC) lymphoma Colitis Coronary artery disease Diabetes mellitus (HCC) Heart murmur Heart valve disease Past Surgical History: Past Surgical History: Procedure Laterality Date CARDIAC CATHETERIZATION CARPAL TUNNEL RELEASE COLONOSCOPY Admission Diagnosis: Patient Active Problem List Diagnosis Date Noted CAD in [place] artery 02/28/2023 Medical Precautions: No active isolations Proper PPE donned/doffed in accordance with facility standards. Fall Risk: Irwin Fall Risk Score: 50 (High Risk) Precautions/Restrictions: Sternal Precautions: move in the tube, 10lb lifting restriction Family/Caregiver Present: none Overall Cognitive Status: WFL Overall Orientation Status: Oriented x4 Social/Functional History Patient admitted from home. Lives With: Spouse Type of Home: single family home Home Layout: Two Level Home Home Access: Bathroom Shower/Tub: Toilet: Standard Home Equipment: none Homemaking Responsibilities: Independent Receives Help From: None Active Manager Landscape: Yes Prior Level of Function ADL Assistance: Independent Ambulation Assistance: Independent Transfer Assistance: Independent Objective ADLs LE Dressing: Supervision Toileting: Supervision Upper Extremity Assessment AROM: WFL PROM: Strength: Vision: not assessed this session Hearing: normal Bed Mobility Transfers/Functional Mobility Sit to stand: Supervision Stand to sit: Supervision Toilet: Supervision Functional mobility: Supervision Device(s) used: none AM-PAC AM-PAC Inpatient Daily Activity Raw Score: 24 ADL Inpatient [facility] G-Code Modifier: CH Plan Pt would benefit from skilled acute OT services to address ROM, Endurance Training, Safety Education and Training, Equipment Evaluation/Education, Self-Care/ADL Training, and Home Management Training. Frequency: 1x/week for 4 weeks Barriers: None Prognosis: good Safety/Education Safety Safety Devices in place: All fall risk precautions in place, call light within reach, left in chair, patient at risk for falls, and no alarms engaged upon entry Restraints: N/A Education Education Given To: patient Education Provided: OT Role, Plan of Care, and Discharge Recommendations Education Method: Verbal Barriers to Learning: None Education Outcome: Verbalized Understanding Goals Patient Stated Goal: to go home Encounter Problems Encounter Problems (Active) Balance Patient will maintain dynamic standing balance for 5 minutes with independence in order to demonstrate decreased risk of falling. Start: 03/05/23 Expected End: 04/02/23 Mobility Patient will complete item retrieval with independence Start: 03/05/23 Expected End: 04/02/23 Safety Patient will recall/demonstrate weight bearing and/or ROM restrictions with all functional mobility in order to promote healing and safety with functional tasks. Start: 03/05/23 Expected End: 04/02/23 Therapy Time Individual Co-treatment Time In 0816 Time Out 0833 Minutes 17 Marlene Mack OTR/[place] Patient's Occupational Therapy Plan of Care supervision is transferred to a [facility] Occupational Therapist. Goals and/or treatment plan was established in collaboration with patient/family/other representatives.[facility]11-06-2023 NoteReceived referral and reviewed chart. Phase II Cardiac Rehab Referral discussed with Vidal Kay. Patient prefers cardiac rehab at [facility]. Given information on cardiac rehab at preferred location. [facility]11-06-2023 Consult note* Vira Harp - 03/04/2023 1:58 PM EST Received referral and reviewed chart. Phase II Cardiac Rehab Referral discussed with Vidal Kay.Patient prefers cardiac rehab at [facility]. Given information on cardiac rehab at preferred location. [id number] Consult [facility]* Vira Harp - 03/04/2023 1:58 PM EST Received referral and reviewed chart. Phase II Cardiac Rehab Referral discussed with Vidal Kay.Patient prefers cardiac rehab at [facility]. Given information on cardiac rehab at preferred location. * Princess Vincent RD - 03/01/2023 11:57 AM EDTAssociated Order(s): IP CONSULT TO DIETITIAN Nutrition Assessment Type and Reason for Visit: Initial, Consult, Patient Education (s/p open heart surgery) Nutrition Recommendations/Plan: Continue ANNALISE diet as ordered. Monitor p.o. intake and glucose levels for appropriateness for carb-limited diet (hx of DM) Per MNT protocol, will order Ensure Surgery BID to promote p.o. intake and postop healing (330 kcal, 18 g protein, 8 oz each). Monitor indication for diabetic supplement Provided heart healthy diet handout with [facility] RD phone number. Will assess education needs at followup visit, as able RD will monitor overall nutrition status and will follow weekly Malnutrition Assessment: Malnutrition Status: At risk for malnutrition (Comment) Findings of the 6 clinical characteristics of malnutrition: Energy Intake: Mild decrease (poor appetite currently) Weight Loss: No significant weight loss Body Fat Loss: Moderate body fat loss Orbital, Fat Overlying Ribs (? baseline, ? normal aging) Muscle Mass Loss: (moderate/severe) Temples (temporalis), Clavicles (pectoralis & deltoids) (? baseline, ? 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 Pt reports poor appetite, endorses nausea, did tolerate some eggs and sausage this a.m. Prior to admis eleanor, eating well at home, three meals daily, monitors carbohydrate intake, stable weight which is reported to be in the 140s# range. RD provided heart healthy diet handout with [facility] phone number for reference. Pt is agreeable to Ensure Estimated Daily Nutrient Needs: Energy Requirements Based On: Kcal/kg Weight Used for Energy Requirements: Current (25-30 kcal/kg) Weight for Energy Calculation (kg): 70.6 kg Total Energy Requirements (kcals/day): 7706-6878 Weight Used for Protein Requirements: Current (1.2-1.5 g/kg) Weight in Kg Used for Protein Requirements: 70.6 kg Estimated Total Protein (g/day): 85-106 Estimated Daily Total Fluid (ml/day): per MD Nutrition Related Findings: Nutrition History: Independent of feeding. GI symptoms: Nausea. Gumaro Scale Score: 19 .Wound Type: Surgical Incision Net IO Since Admission: 726 mL [03/01/23 1158] Edema: RUE Edema: None, LUE Edema: None, , Bowel Sounds (All Quadrants): Hypoactive Abdomen Inspection: Soft, Nondistended Labs and meds reviewed: acetaminophen, 1,000 mg, Oral, q8h [START ON 03/03/2023] amiodarone, 200 mg, Oral, Daily amLODIPine, 5 mg, Oral, Daily aspirin, 81 mg, Oral, Daily ceFAZolin, 2,000 mg, IntraVENous, q8h chlorhexidine, 15 mL, Mouth/Throat, BID ferrous sulfate, 325 mg, Oral, Daily Lidocaine, 1 patch, Topical, Daily metoclopramide, 10 mg, Oral, BID Or metoclopramide, 10 mg, IntraVENous, BID metoprolol tartrate, 25 mg, Oral, BID mupirocin, , Nasal, BID pantoprazole, 40 mg, Oral, qAM AC polyethylene glycol (PEG) 3350, 17 g, Oral, Daily senna-docusate sodium, 2 tablet, Oral, Nightly sodium chloride 0.9%, 10 mL, IntraVENous, 2 times per day amiodarone, 1 mg/min, Last Rate: 1 mg/min (03/01/23 0952) Followed by amiodarone, 0.5 mg/min insulin regular, 1-50 Units/hr, Last Rate: 5 Units/hr (03/01/23 1131) nitroprusside, 0.1-3 mcg/kg/min, Last Rate: Stopped (03/01/23 1105) norepinephrine, 0.01-3.3 mcg/kg/min, Last Rate: 0.05 mcg/kg/min (03/01/23 1200) sodium chloride, 20 mL/hr, Last Rate: 20 mL/hr (02/28/23 1153) sodium chloride, 50 mL/hr BMP: Recent Labs 02/28/23 1029 03/01/23 0005 NA 138 135 K 4.6 4.4 CL 104 103 CO2 22 21* BUN 24* 25* CREATININE 0.78 0.77 GLUCOSE 117* 124* CALCIUM 9.9 8.9 MG 4.1* 2.3 PHOS 4.0 -- Recent Labs 03/01/23 0237 03/01/23 0518 03/01/23 0723 03/01/23 0841 03/01/23 0957 03/01/23 1131 POCGLU 152* 153* 176* 176* 200* 202* Lab Results Component Value Date HGBA1C 7.3 (H) 02/19/2023 Current Nutrition Therapies: Adult diet Regular; No Added Salt (3-4 gm) Current Oral Intake Average Meal Intake: (limited) Average Supplements Intake: None Ordered Anthropometric Measures: Height: 168.9 cm (5' 6.5) Current Body Weight: 70.6 kg (155 lb 10.3 oz) (03/01) Admission Body Weight: 66.2 kg (146 lb) (02/28) Usual Body Weight: 68.9 kg (152 lb) (02/06/23) % Weight Change (Calculated): 2.4 [place] Body Weight (lbs) (Calculated): 145 lbs [place] Body Weight (Kg) (Calculated): 66 kg % [place] Body Weight (Calculated): 107.3 % BMI (kg/m2) (Calculated): 24.7 BMI Categories: Normal Weight (BMI 22.0 to 24.9) age over 65 Wt Readings from Last 10 Encounters: 03/01/23 70.6 kg (155 lb 10.3 oz) 02/19/23 66.6 kg (146 lb 12.8 oz) 02/19/23 65.8 kg (145 lb) Nutrition Diagnosis: Increased nutrient needs related to increase demand for energy/nutrients as evidenced by wounds Nutrition Interventions: Food and/or Nutrient Delivery: Continue Current Diet, Start Oral Nutrition Supplement Nutrition Education/Counseling: Education initiated, Education needed Coordination of Nutrition Care: Continue to monitor while inpatient Goals: Goals: PO intake 75% or greater, prior to discharge Nutrition Monitoring and Evaluation: Food/Nutrient Intake Outcomes: Food and Nutrient Intake, Supplement Intake Physical Signs/Symptoms Outcomes: Biochemical Data, GI Status, Nausea or Vomiting, Nutrition Focused Physical Findings, Skin, Weight Discharge Planning: Too soon to determine Princess Vincent RD, LD Contact: *[phone] or via Twitmusic chat * Tejal Escalante, BOTTLER HELPER - CAMPUS REP - 03/01/2023 9:41 AM EDTAssociated Order(s): IP CONSULT TO ENDOCRINOLOGY Department of Internal Medicine Division of Endocrinology, Diabetes, & Metabolism Endocrinology Note Patient Name: Vidal Kay : 1945 AGE: 78 y.o. Room/Bed: [facility]/[address] Admission Date: 02/28/2023 Visit Date: 03/01/2023 Reason for Endocrine Consult: post op heart Provider/Team Requesting Consult: cts PCP: Felix Bill Outpt [employer] Coxsw[employer]: No ASSESSMENT: Stress hyperglycemia DM2 with hyperglycemia without senior living insulin Cabgx2, AVR CAD/ HTN/HLD PLAN: Continue on insulin gtt per protocol ICU goal <180 GMF goal <150 POCT BG Q 1 Hypoglycemia per protocol Carb controlled diet ANTICIPATED ENDOCRINE HOME GOING RECOMMENDATIONS: Optimized for Discharge from Endocrine standpoint: No Home Going Endocrine Rx Recommendations-- tbd Outpt Follow Up-- Pcp and states he sees [facility] SUBJECTIVE/HPI: CHIEF COMPLAINT: No chief complaint on file. Cabgx2, AVR History of DM2 managed outpatient by PCP BGL below Resting in bed Awake Vss- RA Tired- does c/o pain States he ate bfast this am Denies nv abd pain Insulin gtt 3/hr Amio gtt on Does wear dexcom g6- on right arm- no lifter/driver with him States bgl usually controlled at home Spoke to nursing and CTS Type of DM: 2 Onset of DM: 7 years ago Home DM Medication Regimen: farxiga 10, glipizide 10 daily, lantus pens 15 hs DM control (last A1c/glucose data): Lab Results Component Value Date HGBA1C 7.3 (H) 02/19/2023 Glucose Date/Time Value Ref Range Status 03/01/2023 08:41 AM 176 (H) 70 - 100 mg/dL Final 03/01/2023 07:23 AM 176 (H) 70 - 100 mg/dL Final 03/01/2023 05:18 AM 153 (H) 70 - 100 mg/dL Final 03/01/2023 02:37 AM 152 (H) 70 - 100 mg/dL Final 03/01/2023 01:12 AM 132 (H) 70 - 100 mg/dL Final 02/28/2023 11:01 PM 129 (H) 70 - 100 mg/dL Final Review of Systems All other systems reviewed and are negative. ROS negative except for those mentioned in HPI. OBJECTIVE: Vitals: 03/01/23 0645 03/01/23 0700 03/01/23 0715 03/01/23 0857 BP: BP Location: Patient Position: Pulse: (!) 117 108 (!) 120 Resp: (!) 11 (!) 9 (!) 11 Temp: TempSrc: SpO2: 97% 96% 96% Weight: Height: 5' 6.5 (1.689 m) Physical Exam Vitals and nursing note reviewed. Constitutional: General: He is not in acute distress. Appearance: He is ill-appearing. He is not toxic-appearing. HENT: Head: Normocephalic and atraumatic. Cardiovascular: Rate and Rhythm: Normal rate. Pulmonary: Effort: Pulmonary effort is normal. Abdominal: General: There is no distension. Palpations: Abdomen is soft. Skin: General: Skin is warm and dry. Comments: Intact incision Neurological: Mental Status: He is alert and oriented to person, place, and time. Psychiatric: Mood and Affect: Mood normal. Behavior: Behavior normal. 24 hour intake/output: Intake/Output Summary (Last 24 hours) at 03/01/2023 0941 Last data filed at 03/01/2023 0700 Gross per 24 hour Intake 4884 ml Output 3881 ml Net 1003 ml Diet: Adult diet Regular; No Added Salt (3-4 gm) Medications (as per EMR): HomeMeds: Current Outpatient Medications Medication Instructions ascorbic acid (VITAMIN C) 1,000 mg, Oral, Daily aspirin 81 mg, Oral, Daily dapagliflozin (FARXIGA) 10 mg, Oral, Daily ferrous sulfate 325 (65 Fe) MG tablet 1 tablet, Oral, Daily glipiZIDE (GLUCOTROL) 10 mg, Oral, Daily glucosamine-chondroitin 500-400 MG tablet 1 tablet, Oral, 3 times daily insulin glargine (LANTUS) 15 Units, SubCUTAneous, Nightly mesalamine (LIALDA) 2,400 mg, Oral, Daily with breakfast, Do not crush, chew, or split. Multiple Vitamins-Minerals (multivitamin with minerals) tablet 1 tablet, Oral, Daily mupirocin (Bactroban) 2 % ointment Apply liberal amount per nostril the night before surgery and then again the morning of surgery ramipril (ALTACE) 5 mg, Oral, Daily Scheduled Meds:acetaminophen, 1,000 mg, Oral, q8h albumin human, 50 g, IntraVENous, Once [START ON 03/03/2023] amiodarone, 200 mg, Oral, Daily amLODIPine, 5 mg, Oral, Daily aspirin, 81 mg, Oral, Daily ceFAZolin, 2,000 mg, IntraVENous, q8h chlorhexidine, 15 mL, Mouth/Throat, BID ferrous sulfate, 325 mg, Oral, Daily Lidocaine, 1 patch, Topical, Daily metoclopramide, 10 mg, Oral, BID Or metoclopramide, 10 mg, IntraVENous, BID metoprolol tartrate, 25 mg, Oral, BID mupirocin, , Nasal, BID pantoprazole, 40 mg, Oral, qAM AC polyethylene glycol (PEG) 3350, 17 g, Oral, Daily senna-docusate sodium, 2 tablet, Oral, Nightly sodium chloride 0.9%, 10 mL, IntraVENous, 2 times per day Continuous Infusions:amiodarone, 1 mg/min Followed by amiodarone, 0.5 mg/min insulin regular, 1-50 Units/hr, Last Rate: 2 Units/hr (03/01/23 0841) nitroprusside, 0.1-3 mcg/kg/min, Last Rate: 1.25 mcg/kg/min (03/01/23 0620) sodium chloride, 20 mL/hr, Last Rate: 20 mL/hr (02/28/23 115) sodium chloride, 50 mL/hr PRN Meds:PRN medications: calcium gluconate, dextrose, dextrose, glucagon (rDNA), glucose, magnesium hydroxide, magnesium sulfate OR magnesium sulfate, ondansetron ODT OR ondansetron, oxyCODONE OR oxyCODONE, potassium chloride OR potassium chloride OR potassium chloride, potassiu m chloride CR, sodium chloride, sodium chloride 0.9% Diagnostic Workup: I reviewed pertinent Laboratory results, Radiographic results, and Other Clinical Notes at the timeof today's encounter. Labs: No components found for: LABA1C No components found for: EAG Lab Results Component Value Date NA 135 03/01/2023 K 4.4 03/01/2023 CL 103 03/01/2023 CO2 21 (L) 03/01/2023 BUN 25 (H) 03/01/2023 CREATININE 0.77 03/01/2023 GLUCOSE 124 (H) 03/01/2023 CALCIUM 8.9 03/01/2023 No results found for: CHLPL, CHOL No results found for: TRIG No results found for: HDL No results found for: LDLCALC No results found for: VLDL No results found for: CHOLHDLRATIO No results found for: [id number] No results found for: TSH, Z0FQFCM, B8RSFVX, THYROIDAB Radiology reportsas per the Radiologist Radiology: ECG 12 lead Result Date: 03/01/2023 Atrial fibrillation Anterior infarct, acute XR chest 1 view Result Date: 03/01/2023 Patient Name: VIDAL KAY : 1945 Date/Time: 03/01/2023 05:14 Procedure: XR CHEST 1 VIEW Ordering Provider: WALSH MATTHEW Reason For Exam: Shortness of breath CHEST RADIOGRAPH CLINICAL INDICATION: Shortness of breath TECHNIQUE: AP COMPARISON: 02/28/2023 chest radiograph FINDINGS: Stable positioning of right IJ Hickory-Jose catheter and mediastinal drain. Cardiomediastinal: The cardiomediastinal silhouette is stable in size and configuration. Lungs: Small bilateral pleural effusions with associated atelectasis, right greaterthan left. Increased interstitial lung markings concerning for pulmonary edema. No pneumothorax. Osseous structures: No acute osseous abnormality. See findings. Report Dictated on Electronically Signed By: Ravinder Garnett MD Electronically Signed Date/Time: 03/01/2023 5:25 AM EDT ECG 12 lead Sinus tachycardia Ventricular premature complex Nonspecific T abnormalities, lateral leads Borderline ST elevation, anterior leads XR chest 1 view Result Date: 02/28/2023 Patient Name: [facility]IDAL KAY : 1945 [id number] Date/Time: 02/28/2023 11:54 Procedure: XR CHEST 1 VIEW Ordering Provider: WALSH MATTHEW Reason For Exam: Post op open heart surgery CHEST - PORTABLE: CLINICAL INDICATION: Postop open heart surgery. TECHNIQUE: Portable AP COMPARISON: 02/19/2023. FINDINGS/IMPRESSION: Limitations: Slight patient rotation and multiple overlying leads/support devices Lines, tubes, and devices: Endotracheal tube has its tip about 4 cm above the herbert. Right IJ Hickory-Jose catheter with its tip in the proximal right pulmonary artery. NG tube with its tip in the proximal stomach. Mediastinal drain and left basilar chest tube in place. Cardiomediastinal silhouette: Postsurgical changes with median sternotomy wires and cardiac valve prosthesis. Lungs/Pleura: Slight coarsening of the interstitial lung markings in part likely reflecting chronic lung changes. There may be element of mild central pulmonary vascular congestion. Mild left basilar atelectasis. No sizable pleural effusions. No pneumothorax. Osseous structures: Degenerative spondylosis in the visualized spine. Soft tissues: No soft tissue abnormality is detected. Report Dictated on Electronically Signed By: Isaias Vasquez MD Electronically Signed Date/Time: 02/28/2023 1:23 PM EDT Transesophageal echocardiogram (LAURIE) with contrast and 3D PRN Result Date: 02/28/2023 Left Ventricle: Left ventricle size is normal. Mildly increased wall thickness. Normal left ventricular systolic function. LVEF pre and post AVR is normal , visually about 60%. Normal wall motion. Right Ventricle: Right ventricle size is normal. Normal systolic function. Aortic Valve: Pre-valve replacement: Severe stenosis of the aortic valve. By planimetery valve area was 1 cm2.Mild regurgitation. s/p Bioprosthetic AVR . well seated, functioning normally (Mean gradient 8 mmHg, V max 2.1 m/s). No perivalvular or valvular regurgitation Mitral Valve: Mildly thickened leaflets. Mild to moderate (1-2+) regurgitation. ECG 12 lead Sinus rhythm Right bundle branch block History/Other: Past Medical History: Past Medical History: Diagnosis Date Cancer (CMS/HCC) (HCC) lymphoma Colitis Coronary artery disease Diabetes mellitus (HCC) Heart murmur Heart valve disease Past Surgical History: Past Surgical History: Procedure Laterality Date CARDIAC CATHETERIZATION CARPAL TUNNEL RELEASE COLONOSCOPY Allergy(ies): No Known Allergies Family History: No family history on file. Social History: Social History Tobacco Use Smoking status: Former Packs/day: 1.00 Years: 20.00 Additional pack years: 0.00 Total pack years: 20.00 Types: Pipe, Cigarettes Start date: 1982 Quit date: 1989 Years since quittin.8 Smokeless tobacco: Current Types: Chew Tobacco comments: snuff Vaping Use Vaping Use: Never used Substance Use Topics Alcohol use: Not Currently Drug use: Not Currently Portions of the information within this encounter were entered using an electronic dictation system. Best attempts were made to edit/proofread the information prior to note completion. Despite the review of information, some errors may remain. If there are questions related to the information contained within the note please contact the signing physician directly. I spent 30 minutes with the pt which involved coordination of care, medical evaluation, review of records, and/or counseling of the pt regarding his/her condition/disease state/prognosis on the date of this note. Associated attestation - Celsa Grissom MD - 03/01/2023 5:18 PM EDT Attending Supervising Physician's Attestation Statement The patient is a 78 y.o. male. I have performed a history and physical examination of the patient. I discussed the case with the nurse practitioner. 78-year-old patient with history of type 2 diabetes and was admitted for CABG and bioprosthetic AVRfor CAD and nonrheumatic aortic valve stenosis. Patient was seen at bedside with his family History obtained from both patient and family member Patient feels tired Had a small portion of breakfast and had vomiting. Appetite remains poor Diabetes is fairly controlled with an A1c of 7.3% Takes Farxiga 10 Mg daily, glipizide 10 Mg 1 tablet daily , Lantus 15 units daily Uses a dexcom . Currently not in use On Exam Patient is AAOX 3 Sleepy but arousable CVS:S1S2+ ON telemetry RS: Chest tubes noted I reviewed the patient's Past Medical History, Past Surgical History, Medications, and Allergies. Physical Exam: Vitals: 03/01/23 1145 03/01/23 1200 03/01/23 1215 03/01/23 1230 BP: BP Location: Patient Position: Pulse: 53 53 52 52 Resp: 17 17 13 17 Temp: 36.2 C (97.2 F) 36.2 C (97.2 F) 36.2 C (97.2 F) 36.2 C (97.2 F) TempSrc: SpO2: (!) 86% 98% 95% 96% Weight: Height: Assessment Type 2 diabetes with hyperglycemia and long-term insulin use CAD s/p CABG Aortic valve stenosis s/p AVR Hypertension Hyperlipidemia Recommendations Continue Insulin drip per protocol today . Based on clinic status should be able to transition to subcutaneous insulin by tomorrow Impression/Plan I reviewed and agree with the findings and plan documented in her note . I personally saw and evaluated the patient. I reviewed and agree with the JULIO's documentation. I provided a substantive portion of the care of this patient. I personally performed the medical decision making in entirety for the encounter as mentioned above * Citlalli Ramos - 03/01/2023 7:32 AM EDTAssociated Order(s): IP CONSULT TO CARDIAC REHAB Received referral and reviewed chart. Unable to discuss Phase II Cardiac Rehab Referral with Vidal Kay at this time. Will follow to discuss cardiac rehab when appropriate. Patient will be contacted at home if discharged prior to discussion. * VINICIO Friend CNP - 02/28/2023 11:23 AM EDT Images from the original note were not included. [facility]: Critical Care Consultation Note Date: 02/28/23 PATIENT NAME: Vidal Kay : 1945 (78 y.o.) Reason for Consult: Critical Care & Vent Management HPI: Vidal Kay is a 78 y.o. male referred by Dr. Baig for severe coronary artery bypass surgery reshma aortic valve replacement. He presented as an OP for AVR and CABG x [address] Rodríguez. Surgery: 02/28/23 Rodríguez: CABG x 2, Tissue AVR, LEVH Interval History: 02/28/23: POD #0: Patient arrived to the unit, intubated and sedated. Surgical hand off completed below. Review of Systems Constitutional: Negative for diaphoresis, fatigue and fever. Respiratory: Negative for cough, shortness of breath and wheezing. Cardiovascular: Negative for chest pain, palpitations and leg swelling. Gastrointestinal: Negative for abdominal distention, constipation and diarrhea. Skin: Negative for color change, pallor and rash. Allergies: Patient has no known allergies. Past Medical History: has a past medical history of Cancer (CMS/HCC) (HCC), Colitis, Coronary artery disease, Diabetes mellitus (HCC), Heart murmur, and Heart valve disease. Past Surgical History: has a past surgical history that includes Carpal tunnel release; Cardiac catheterization; and Colonoscopy. Social History: reports that he quit smoking about 33 years ago. His smoking use included pipe and cigarettes. He started smoking about 40 years ago. He has a 20.00 pack-year smoking history. His smokeless tobacco use includes chew. He reports that he does not currently use alcohol. He reports that he does not currently use drugs. Family History: family history is not on file. Medications: Prior to Admission medications Medication Sig Start Date End Date Taking? Authorizing Provider ascorbic acid (Vitamin C) 1000 MG tablet Take 1,000 mg by mouth daily. Yes Historical Provider, aspirin 81 MG EC tablet Take 81 mg by mouth daily. Yes Historical Provider, chlorhexidine (Peridex) 0.12 % solution Use 15 mL in the mouth or throat Once for 1 dose. Swish for30 seconds and spit out the night before surgery. Do not swallow. 02/21/23 02/28/23 Yes VINICIO Ballard CNP dapagliflozin (Farxiga) 10 MG Take 10 mg by mouth daily. Yes Historical Provider, ferrous sulfate 325 (65 Fe) MG tablet Take 1 tablet by mouth daily. 10/16/22 Yes Historical Provider, glipiZIDE (Glucotrol) 5 MG tablet Take 10 mg by mouth daily. Yes Historical Provider, glucosamine-chondroitin 500-400 MG tablet Take 1 tablet by mouth 3 times daily. Yes Historical Provider, insulin glargine (Lantus) 100 UNIT/ML injection Inject 15 Units under the skin Nightly. Yes Historical Provider, mesalamine (Lialda) 1.2 g EC tablet Take 2,400 mg by mouth daily (with breakfast). Do not crush, chew, or split. Yes Historical Provider, Multiple Vitamins-Minerals (multivitamin with minerals) tablet Take 1 tablet by mouth daily. Yes Historical Provider, mupirocin (Bactroban) 2 % ointment Apply liberal amount per nostril the night before surgery and then again the morning of surgery 02/21/23 Yes VINICIO Ballard CNP ramipril (Altace) 5 MG capsule Take 5 mg by mouth daily. Yes Historical Provider, Surgery Hand Off: Arrival Time in HLU: 1120 Complications/Pertinent Events: none Last Paralytic: 0945 Gtts OR report Epinephrine: Norepinephrine: Phenylephrine: Vasopressin: Nitroglycerin: Nitroprusside: Dobutamine: Milrinone: Propofol: 40 Insulin: Amicar: 29 Current gtts upon arrival Epinephrine: Norepinephrine: Phenylephrine: Vasopressin: Nitroglycerin: Nitroprusside: 10 Dobutamine: Milrinone: Propofol: 40 Insulin: Amicar: 29 Devices: Epicardial wires: yes [x] no [] Blood Transfusions Intra Op: yes [x] no [] 2 units on pump CellSaver: 800ml Vital Signs including Cardiac Numbers (if indicated) at Conclusion of Hand-off OR HLU CO 5.4 CI 2.8 CVP 12 SVR 900 PAP 31/14 Additional Interventions/Misc during Handoff Fentanyl 100 mcg 1 syringe of nitro Objective: BP (!) 155/76 Pulse 79 Temp 36.8 C (98.2 F) (Core) Resp 16 Ht 5' 6.5 (1.689 m) Wt 146 lb(66.2 kg) SpO2 99% BMI 23.21 kg/m Intake/Output Summary (Last 24 hours) at 02/28/2023 1123 Last data filed at 02/28/2023 1051 Gross per 24 hour Intake 1620 ml Output 2721 ml Net -1101 ml Physical Exam Constitutional: Interventions: He is sedated and intubated. HENT: Mouth/Throat: Comments: ETT in place Neck: Vascular: No JVD. Trachea: Trachea normal. Cardiovascular: Rate and Rhythm: Normal rate and regular rhythm. Pulses: Radial pulses are 2+ on the right side and 2+ on the left side. Heart sounds: Normal heart sounds, S1 normal and S2 normal. Pulmonary: Effort: He is intubated. Breath sounds: Decreased breath sounds present. Abdominal: General: Bowel sounds are absent. Musculoskeletal: Right lower leg: No edema. Left lower leg: No edema. Skin: Findings: Bruising and ecchymosis present. Comments: Surgical dressing dry and intact Diagnostics: Reviewed in EMR Labs: Reviewed in EMR BMP: Recent Labs 02/28/23 1029 NA 138 K 4.6 CL 104 CO2 22 BUN 24* CREATININE 0.78 CALCIUM 9.9 MG 4.1* PHOS 4.0 CBC: Recent Labs 02/28/23 1029 HGB 9.0 INR: Recent Labs 02/28/23 1029 INR 1.3* Assessment: CAD Aortic Valve stenosis S/P Tissue AVR HTN HLD Former smoker DM II Post operative Pulm Management: Normal Post-operative Course Post-operative Atrial Fibrillation: []Yes [x] No Acute blood loss anemia/consumptive none Plan: - Start nipride gtt for the HTN - fentanyl 100 mcg - Start precedex - EKG reviewed - CXR pending completion - Endo consulted for BS needs - Sugamadex - Hemodynamic goals: CI >2.0, SBP 90-130 mmHg, MAP 60-75 - PRN Hypertension 1st option Cardene gtt 2nd option or if Cardene unavailable Nitro -PRN Hypotension CI >2.0 euvolemic with low SVR- Levophed gtt CI <2.0 euvolemic - Epinephrine gtt - Temp pacing wires/mode: Back up - Chest tubes: no air leak or fluctuation noted, suction -20 cm - Cefazolin - surgical prophy for 5 doses total - Wean to Extubation: Arrival Time in unit: [id number] - Vent: ACVC+, TV 6ml/kg/min, rate 12, fio2 100% PEEP 8 VAP protocol: HOB >30 degrees; peridex BID - Insulin gtt; per endo/protocol - GI prophy: Protonix IV daily Patient treatment plan and plan of care discuss with Dr. Yasmani Matt Associated attestation - Yasmani Matt MD - 02/28/2023 7:41 PM EDT I have personally seen the patient and examined along with the JULIO/resident team. I personally obtained the vaughan and relevent portions of the history and performed physical exam. I reviewed the chart including MAR , labs and radiology and discussed the patient's plan of action with the resident/JULIO.This note reflects my plan of care as I have edited the note to reflect my findings and my assessment and plan. Date of service: 02/28/23 Discussed with: []Residents [x]Patient/Family [x]RN [x]Consultants []SW/TCC []Other [x]JULIO Personally Reviewed: [x]Epic notes [x]Radiology studies [x]Labs [x]EKG []Other In addition to resident/JULIO documentation pertinent History, ROS, and/or Physical Exam findings include: 78 year-old male with PMH significant for CAD, non-rheumatic aortic valve disease, HTN, prior tobacco use, DM2, and ulcerative colitis on mesalamine. Presents to ICU s/p bioprosthetic aortic valve replacement and CABGx2. Assessment: -mvCAD s/p CABG -non-rheumatic aortic valve stenosis s/p bioprosthetic AVR -HTN -HLD -Prior tobacco use -DM2 -Ulcerative colitis -reactive leukocytosis -ABLA Plan: -continue lung protective ventilation -Start SBT once awake, alert, with adequate pain control -glycemic control per endo -continue perez-op abx -continue multimodal pain regimen -monitor chest tube output -remainder as per JULIO documentation Excluding procedures, the total critical care time invested in the care of this patient with life threatening/unstable organ failure today is at least 35 minutes. This includes direct patient contact, review of medical record, management of life support systems, review of data including imaging andlabs, discussions with other team members, patient's family and physicians. documented in this [facility]11-06-2023 NoteCare Management Progress Note Patient remains in CTV ICU s/p CABG x 2 and AVR POD # 4. On RA, VSS, in SB on tele, SCr down trending-auto diuresis, started Eliquis, and PT recommending home with assist. Patient from home with MARIANA following for home care needs. Discharge Milestones and Delays Expected Date/Time: 03/05/[address] discharge order Complete med reconciliation Case mgmt discharge readiness Clinical Stability Diagnsotic Workup Expected Discharge History Expected Date/Time Set By Reviewed At 03/05/2023 Susie Mitchell RN 03/04/2023 9:38 AM 03/07/2023 Citlalli Tinoco RN 02/28/2023 11:12 AM 03/07/2023 Yary Alberts APRN - CAMPUS REP 02/28/2023 6:27 AM 03/07/2023 Phoenix Walsh APRN - CAMPUS REP 02/28/2023 6:27 AM Length of Stay (Days): 4 GMLOS: 5.7[facility] [id number] Note* Care Coordination - Susie Mitchell RN - 03/04/2023 9:38 AM EST Images from the original note were not included. Care Management Progress Note Patient remains in CTV ICU s/p CABG x 2 and AVR POD # 4. On RA, VSS, in SB on tele, SCr down trending-auto diuresis, started Eliquis, and PT recommending home with assist. Patient from home with MARIANA following for home care needs. Discharge Milestones and Delays Expected Date/Time: 03/05/[address] discharge order Complete med reconciliation Case mgmt discharge readiness Clinical Stability Diagnsotic Workup Expected Discharge History Expected Date/Time Set By Reviewed At 03/05/2023 Susie Mitchell RN 03/04/2023 9:38 AM 03/07/2023 Citlalli Tinoco RN 02/28/2023 11:12 AM 03/07/2023 Yary Alberts BOTTLER HELPER - CAMPUS REP 02/28/2023 6:27 AM 03/07/2023 Phoenix Walsh, BOTTLER HELPER - CAMPUS REP 02/28/2023 6:27 AM Length of Stay (Days): 4 GMLOS: 5.7 [facility]11-06-2023 Note* Care Coordination - Susie Mitchell RN - 03/04/2023 9:38 AM EST Images from the original note were not included. Care Management Progress Note Patient remains in CTV ICU s/p CABG x 2 and AVR POD # 4. On RA, VSS, in SB on tele, SCr down trending-auto diuresis, started Eliquis, and PT recommending home with assist. Patient from home with MARIANA following for home care needs. Discharge Milestones and Delays Expected Date/Time: 03/05/[address] discharge order Complete med reconciliation Case mgmt discharge readiness Clinical Stability Diagnsotic Workup Expected Discharge History Expected Date/Time Set By Reviewed At 03/05/2023 Susie Mitchell RN 03/04/2023 9:38 AM 03/07/2023 Citlalli Tinoco RN 02/28/2023 11:12 AM 03/07/2023 Yary Alberts, BOTTLER HELPER [facility] 02/28/2023 6:27 AM 03/07/2023 Phoenix Walsh [facility] 02/28/2023 6:27 AM Length of Stay (Days): 4 GMLOS[facility] 5.7 [id number] Plan of care note* Care Plan - Kay Duomnt RN - 03/04/2023 12:14 AM EST The patient is Moderately Stable - Low risk of patient condition declining or worsening The patient's goals for the shift include sleep The clinical goals for the shift include keep pt safe Over the shift, the patient did not make progress toward the following goals. Barriers to progression include pt not understanding his plan of care. Recommendations to address these barriers include educating pt about his plan of care. [id number] NoteStart P[facility] Note Home Health Referral Educated patient on Home Care and services available. Patient offered choice of available HHC and agreeable to SN/PT services with [facility]. Care Types: [facility] Program Isolation Precautions: No active isolations Social Determinates of Health: Tobacco Use: High Risk (02/28/2023) Patient History Smoking Tobacco Use: Former Smokeless Tobacco Use: Current Passive Exposure: Not on file Social History Substance and Sexual Activity Alcohol Use Not Currently Social History Substance and Sexual Activity Drug Use Not Currently Does the patient have any financial resource strain? No Does the patient have any food insecurities? No Does the patient have any housing instabilities? No If any of the above is noted as yes - consider a FLEET OPERATIONS MANAGER evaluation once the patient returns home. START PATIENT REGISTRATION INFORMATION Order Information Order Signing Physician: Eduar Rodríguez MD Service Ordered RN ?: Yes Service Ordered PT ?: Yes Service Ordered OT ?: No Service Ordered ST ?: No Service Ordered FLEET OPERATIONS MANAGER?:No Service Ordered HEALTH SANITARIAN?: No Following Physician: Eduar Rodríguez MD Following Physician Overseeing Physician: Eduar Rodríguez MD (Required for Residents only) Agreeable to Follow? Yes Date/Time of Call 03/03/23 10:55 AM, Spoke with: Office is closed verified in [facility] Care Coordination Same Day SOC?: No Primary Care Physician: Felix Bill Primary Care Physician Primary Care Physician Address: [address] [place] [address] / [facility] [id number] Visit Instructions: N/A Service Discharge Location Type: Home with Home Health Care Service Facility Name: N/A Service Floor Facility: N/A Service Room No: N/A Demographics Patient Last Name: Eliza Patient First Name: Vidal Language/Communication Barrier: N/A Service Address: [address] [place] [address] Service City: [place] Service ST: [place] Service ZIP: [address] Service (home) Other phone numbers: [phone] Telephone Information: Emergency Contact: Extended Emergency Contact Information Primary Emergency Contact: Lilian Kay Mobile Relation: Spouse Admission Information Admit Date: 02/28/2023 Patient status at discharge: Inpatient Admitting Diagnosis Nonrheumatic aortic (valve) stenosis [I35.0] 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] CAD in [place] artery [I25.10] Caregiver Information Caregiver First Name: Lilian Caregiver Last Name: Eliza Caregiver Relationship to Patient spouse Caregiver Caregiver Notes: N/A Robod[employer]-Tech List No END PATIENT REGISTRATION INFORMATION Pt Home Health goal to remain at home COVID Status 1. Do you have any upper respiratory symptoms (cough, SOB, Fever)? No 2. Have you been exposed to anyone with COVID-19 Virus? No Answer only if pending or positive for COVID-19? 1. Agreeable to wear PPE at each visit? No 2. Is the hospital supplying them with PPE upon Discharge? No Start PACC Summary General Report/ Additional Comments Vidal Kay is a 78 y.o. male referred by Dr. Baig for severe coronary artery bypass surgery and a aortic valve replacement. He presented as an OP for AVR and CABG x [address] Rodríguez. Discharge Date: TBD Referral Source-PACC: (Hospital/Unit): [facility] / T1/T1 A End PACC [facility]11-05-2023 Note* Home Care - Joi Urias LPN - 03/03/2023 10:55 AM EST Start PACC Note Home Health Referral Educated patient on Home Care and services available. Patient offered choice of available HHC and agreeable to SN/PT services with [facility]. Care Types: [facility] SCRIP Program Isolation Precautions: No active isolations Social Determinates of Health: Tobacco Use: High Risk (02/28/2023) Patient History Smoking Tobacco Use: Former Smokeless Tobacco Use: Current Passive Exposure: Not on file Social History Substance and Sexual Activity Alcohol Use Not Currently Social History Substance and Sexual Activity Drug Use Not Currently Does the patient have any financial resource strain? No Does the patient have any food insecurities? No Does the patient have any housing instabilities? No If any of the above is noted as yes - consider a FLEET OPERATIONS MANAGER evaluation once the patient returns home. START PATIENT REGISTRATION INFORMATION Order Information Order Signing Physician: Eduar Rodríguez MD Service Ordered RN ?: Yes Service Ordered PT ?: Yes Service Ordered OT ?: No Service Ordered ST ?: No Service Ordered FLEET OPERATIONS MANAGER?:No Service Ordered HEALTH SANITARIAN?: No Following Physician: Eduar Rodríguez MD Following Physician Overseeing Physician: Eduar Rodríguez MD (Required for Residents only) Agreeable to Follow? Yes Date/Time of Call 03/03/23 10:55 AM, Spoke with: Office is closed verified in [facility] Care Coordination Same Day SOC?: No Primary Care Physician: Felix Bill Primary Care Physician Primary Care Physician Address: [address] [place] [address] / [facility] [id number] Visit Instructions: N/A Service Discharge Location Type: Home with Home Health Care Service Facility Name: N/A Service Floor Facility: N/A Service Room No: N/A Demographics Patient Last Name: Eliza Patient First Name: Vidal Language/Communication Barrier: N/A Service Address: [address] Service City: [place] Service ST: [place] Service ZIP: [address] Service (home) Other phone numbers: [phone] Telephone Information: Emergency Contact: Extended Emergency Contact Information Primary Emergency Contact: Lilian Kay Mobile Relation: Spouse Admission Information Admit Date: 02/28/2023 Patient status at discharge: Inpatient Admitting Diagnosis Nonrheumatic aortic (valve) stenosis [I35.0] 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] CAD in [place]western [place] artery [I25.10] Caregiver Information Caregiver First Name: Lilian Caregiver Last Name: Eliza Caregiver Relationship to Patient spouse Caregiver Caregiver Notes: N/A Robod[employer]-Tech List No END PATIENT REGISTRATION INFORMATION Pt Home Health goal to remain at home COVID Status 1. Do you have any upper respiratory symptoms (cough, SOB, Fever)? No 2. Have you been exposed to anyone with COVID-19 Virus? No Answer only if pending or positive for COVID-19? 1. Agreeable to wear PPE at each visit? No 2. Is the hospital supplying them with PPE upon Discharge? No Start PACC Summary General Report/ Additional Comments Vidal Kay is a 78 y.o. male referred by Dr. Baig for severe coronary artery bypass surgery reshma aortic valve replacement. He presented as an OP for AVR and CABG x [address] Rodríguez. Discharge Date: TBD Referral Source-PACC: (Hospital/Unit): [facility] / / A End PACC Note [facility]11-05-2023 Note* Home Care - Joi Urias LPN - 03/03/2023 10:55 AM EST Start PACC Note Home Health Referral Educated patient on Home Care and services available. Patient offered choice of available HHC and agreeable to SN/PT services with [facility]. Care Types: [facility] SCRIP Program Isolation Precautions: No active isolations Social Determinates of Health: Tobacco Use: High Risk (02/28/2023) Patient History Smoking Tobacco Use: Former Smokeless Tobacco Use: Current Passive Exposure: Not on file Social History Substance and Sexual Activity Alcohol Use Not Currently Social History Substance and Sexual Activity Drug Use Not Currently Does the patient have any financial resource strain? No Does the patient have any food insecurities? No Does the patient have any housing instabilities? No If any of the above is noted as yes - consider a FLEET OPERATIONS MANAGER evaluation once the patient returns home. START PATIENT REGISTRATION INFORMATION Order Information Order Signing Physician: Eduar Rodríguez MD Service Ordered RN ?: Yes Service Ordered PT ?: Yes Service Ordered OT ?: No Service Ordered ST ?: No Service Ordered FLEET OPERATIONS MANAGER?:No Service Ordered HEALTH SANITARIAN?: No Following Physician: Eduar Rodríguez MD Following Physician Overseeing Physician: Eduar Rodríguez MD (Required for Residents only) Agreeable to Follow? Yes Date/Time of Call 03/03/23 10:55 AM, Spoke with: Office is closed verified in [facility] Care Coordination Same Day SOC?: No Primary Care Physician: Felix Bill Primary Care Physician Primary Care Physician Address: [address] [place] [address] / [facility] [id number] Visit Instructions: N/A Service Discharge Location Type: Home with Home Health Care Service Facility Name: N/A Service Floor Facility: N/A Service Room No: N/A Demographics Patient Last Name: Eliza Patient First Name: Vidal Language/Communication Barrier: N/A Service Address: [address] [place] [address] Service City: [place] Service ST: [place] Service ZIP: [address] Service (home) Other phone numbers: [phone] Telephone Information: Emergency Contact: Extended Emergency Contact Information Primary Emergency Contact: Lilian Kay Mobile Relation: Spouse Admission Information Admit Date: 02/28/2023 Patient status at discharge: Inpatient Admitting Diagnosis Nonrheumatic aortic (valve) stenosis [I35.0] 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] CAD in [place]western [place] artery [I25.10] Caregiver Information Caregiver First Name: Lilian Caregiver Last Name: Eliza Caregiver Relationship to Patient spouse Caregiver Caregiver Notes: N/A Rob[employer]-Tech List No END PATIENT REGISTRATION INFORMATION Pt Home Health goal to remain at home COVID Status 1. Do you have any upper respiratory symptoms (cough, SOB, Fever)? No 2. Have you been exposed to anyone with COVID-19 Virus? No Answer only if pending or positive for COVID-19? 1. Agreeable to wear PPE at each visit? No 2. Is the hospital supplying them with PPE upon Discharge? No Start PACC Summary General Report/ Additional Comments Vidal Kay is a 78 y.o. male referred by Dr. Baig for severe coronary artery bypass surgery reshma aortic valve replacement. He presented as an OP for AVR and CABG x [address] Rodríguez. Discharge Date: TBD Referral Source-PACC: (Hospital[facility]Unit): [facility] / T1-/T1 A [id number] Discharge Instr - Other Orders* Joi Urias LPN - 03/03/2023 10:41 AM EST Discharging to Facility/ Agency Name: [facility] Address: [address] [place] [address] * Discharge Instr - CINDY* Joi Urias LPN - 03/03/2023 10:41 AM EST Continuity of Care Form Patient Name: Vidal Kay : 1945 Admit date: 02/28/2023 Discharge date: Code Status Order: Full Code Advance Directives: Y Admitting Physician: Eduar Rodríguez MD PCP: Felix Bill Discharging Nurse: Discharging Hospital Unit/Room#: T1-101/T1101 A Discharging Unit Phone Number: Emergency Contact: Extended Emergency Contact Information Primary Emergency Contact: Lilian Kay Mobile Relation: Spouse Past Surgical History: Past Surgical History: Procedure Laterality Date CARDIAC CATHETERIZATION CARPAL TUNNEL RELEASE COLONOSCOPY Immunization History: Immunization History Administered Date(s) Administered Moderna SARS-CoV-2 Vaccination 08/04/2020, 09/01/2020 Pfizer SARS-CoV-2 Vaccination 05/09/2021 Active Problems: Medical Problems Problem List * (Principal) CAD in [place] artery Isolation/Infection: No active isolations No active infections Nurse Assessment: Last Vital Signs: BP (!) 151/65 (BP Location: Left arm, Patient Position: Lying) Pulse 63 Temp 36.7 C (98 F) (Temporal) Resp 16 Ht 1.689 m (5' 6.5) Wt 70.4 kg (155 lb 3.2 oz) SpO2 94% BMI 24.67 kg/m Last documented pain score (0-10 scale): Last Weight: Wt Readings from Last 1 Encounters: 03/03/23 70.4 kg (155 lb 3.2 oz) Mental Status: {CINDY Patient Mental Status:89745} IV Access: {CINDY IV Access:04013} Nursing Mobility/ADLs: Walking {CYN ADL:99785::Independent} Transfer {CYN ADL:35432::Independent} Bathing {CYN ADL:69684::Independent} Dressing {CYN ADL:06925::Independent} Toileting {CYN ADL:53396::Independent} Feeding {CYN ADL:51985::Independent} Court Orderly {CYN ADL:51905::Independent} Med Delivery {yes/no:67712} Wound Care Documentation and Therapy: Wound/Incision 02/28/23 Incision Sternum (Active) Site Assessment Clean;Dry;Intact 03/02/23 1200 Odor None 03/02/23 1200 Drainage Amount None 03/02/23 1200 Treatments Cleansed;Site care 03/02/23 0512 Primary Dressing Dermabond;Open to air 03/02/23 1200 Dressing Status Clean, dry & intact 03/02/23 1200 Number of days: 3 Wound/Incision 02/28/23 Incision Pretibial Left (Active) Site Assessment Clean;Dry;Intact 03/02/23 1200 Odor None 03/02/23 1200 Drainage Amount None 03/02/23 1200 Treatments Cleansed;Site care 03/02/23 0512 Primary Dressing Dermabond;Open to air 03/02/23 1200 Dressing Status Clean, dry & intact 03/02/23 1200 Number of days: 3 Elimination: Continence: Bowel: {yes/no:11911} Bladder: {yes/no:60322} Urinary Catheter: {CINDY Urinary Catheter:92282} Colostomy/Ileostomy/Ileal Conduit: {YES / NO:} Date of Last BM: Intake/Output Summary (Last 24 hours) at 03/03/2023 1040 Last data filed at 03/03/2023 0930 Gross per 24 hour Intake 300 ml Output 1415 ml Net -1115 ml I/O last 3 completed shifts: In: 2340 (33.2 mL/kg) [P.O.:1680; I.V.:660 (9.4 mL/kg)] Out: 1628 (23.1 mL/kg) [Urine:1218 (0.5 mL/kg/hr); Chest Tube:410] Weight: 70.4 kg Safety Concerns: {CINDY Safety Concerns:48372} Impairments/Disabilities: {CINDY Impairments/Disabilities:79056} Nutrition Therapy: Current Nutrition Therapy: {CINDY Diet List:73344} Routes of Feeding: {routes of feedin} Liquids: {liquid consistency:64261} Daily Fluid Restriction: {daily fluid restriction:94118} Last Modified Barium Swallow with Video (Video Swallowing Test): {done not done:14272} Treatments at the Time of Hospital Discharge: Respiratory Treatments: Oxygen Therapy: {Therapy; copd oxygen:41906} Ventilator: {CINDY Ventilator:73534} Rehab Therapies: {GEN THERAPY DISCIPLINE SCAL:7130266} Weight Bearing Status/Restrictions: {POD WEIGHT BEARIN} Other Medical Equipment (for information only, NOT a DME order): {Assistive Devices DME:16498} Other Treatments: Patient's personal belongings (please select all that are sent with patient): {CINDY Patient Belongings:03020} RN SIGNATURE: {E-signature:90340} CASE MANAGEMENT/SOCIAL WORK SECTION Inpatient Status Date: Readmission Risk Assessment Score: @READMISSIONRISKDETAILS@ Discharging to Facility/ Agency Name: [facility] Address: [address] [place] [address] Dialysis Facility (if applicable) Name: Address: Dialysis Schedule: Phone: Fax: Quencher Operator/Supervisor Whipped Topping signature: {E-signature:88129} PHYSICIAN SECTION Prognosis: {Rehab Prognosis:71341} Condition at Discharge: {Patient Condition:62156} Rehab Potential (if transferring to Rehab): {Rehab Prognosis:54062} Recommended Labs or Other Treatments After Discharge: Physician Certification: I certify the above information and transfer of Vidal Kay is necessaryfor the continuing treatment of the diagnosis listed and that he requires {CINDY Level of Care:95693}for {greater less than:45372} 30 days. Update Admission H&P: {CINDY Changes in H&P:78095} PHYSICIAN SIGNATURE: {E-signature:82206} documented in this [facility]11-05-2023 NoteCardiothoracic Surgery/CCM Progress Note PATIENT NAME: Vidal Kay DATE: 03/03/23 HPI: Vidal Kay is a 78 y.o. male referred by Dr. Baig for severe coronary artery bypass surgery and a aortic valve replacement. He presented as an OP for AVR and CABG x [address] Rodríguez. Surgery/Procedure: 02/28/23 Rodríguez: CABG x 2, Tissue AVR, LEVH Interval History: 03/03/23, POD# 04. Afebrile, hypertensive at times, on RA, NSR on tele. Sitting up in chair, Awake and alert this AM. Doing well, pain tolerable. Creatinine still trending up slowly. Chest xray more congested. Review of Systems Constitutional: Negative for chills, diaphoresis and fever. Respiratory: Negative for cough, shortness of breath and wheezing. Cardiovascular: Negative for chest pain, palpitations and leg swelling. Gastrointestinal: Negative for abdominal distention and abdominal pain. Neurological: Negative for dizziness, syncope and light-headedness. Objective: CT output cc/24hrs: 210 UO cc/24hrs: 955 Last BM Date: 03/02/23 Vitals: BP: (!) 151/65, MAP (mmHg): 91, BP Method: Automatic Heart Rate: 63 Resp: 16 Temp: 36.7 ?C (98 ?F), Temp Source: Temporal BMI (Calculated): 24.68 BMP: Recent Labs 02/28/23 1029 03/01/23 0005 03/02/23 0011 03/02/23 2350 NA 138 135 132* 128* K 4.6 4.4 4.7 4.7 CL 104 103 98 96* CO2 22 21* 20* 20* BUN 24* 25* 40* 63* CREATININE 0.78 0.77 1.62* 1.74* CALCIUM 9.9 8.9 9.5 9.2 MG 4.1* 2.3 2.4* 2.7* PHOS 4.0 -- -- -- CBC: Recent Labs 03/01/23 0005 03/01/23 1235 03/02/23 0011 03/02/23 2350 WBC 9.4 -- 12.0* 14.3* HGB 7.2* 8.7* 9.4* 9.6* HCT 21.9* 26.6* 28.0* 29.0* PLT 199 -- 215 257 MCV 79.2* -- 80.5 79.9* RDW 15.9* -- 16.8* 17.0* INR: Recent Labs 03/01/23 0005 03/02/23 0011 03/02/23 2350 INR 1.1 1.2* 1.2* Physical Exam Vitals reviewed. Constitutional: General: He is not in acute distress. Appearance: He is not ill-appearing or diaphoretic. Cardiovascular: Rate and Rhythm: Normal rate and regular rhythm. Pulses: Normal pulses. Heart sounds: No murmur heard. Pulmonary: Effort: Pulmonary effort is normal. Breath sounds: No wheezing, rhonchi or rales. Comments: Diminished in bases bilaterally. Abdominal: General: There is no distension. Palpations: Abdomen is soft. Tenderness: There is no abdominal tenderness. Musculoskeletal: General: No swelling. Skin: General: Skin is warm and dry. Capillary Refill: Capillary refill takes less than 2 seconds. Findings: Bruising present. Comments: MSI well approximated. No redness, warmth or drainage noted. Neurological: General: No focal deficit present. Mental Status: He is alert and oriented to person, place, and time. Psychiatric: Mood and Affect: Mood normal. Behavior: Behavior normal. Thought Content: Thought content normal. Judgment: Judgment normal. Assessment: CAD s/p CABG Aortic Valve stenosis S/P Tissue AVR HTN HLD Former smoker DM II Post operative Pulm Management: Normal Post-operative Course Post-operative Atrial Fibrillation: [x]Yes [] No Acute blood loss anemia Plan: Patient Status: Telemetry Continue aspirin, statin and BB. Increase amlodipine to 10mg daily for better BP control. Continue PO amio, will taper at DC. Lasix 40mg IV x1 this AM. Continue to monitor creatinine. Remove correa after diuresis. Remove central line today. Will remove chest tubes today. OAC for valve, will have to discuss with surgeon. Bowel regimen, can DC MOM d/t +BM. Wean O2 as able, goal SpO2>92%. PT/OT: Home with assist PRN (03/02/23) Pulmonary hygiene: IS and Acapella GI prophy: PO protonix DVT prophy:TEDs, SCDs, and Lovenox SubQ Disposition: Possible DC early this week. Central Line: [x]Yes [] No Arterial Line: []Yes [x] No Correa: []Yes [x] No Restraints: []Yes [x] No Patient discussed and plan of day developed from multidisciplinary rounds between Cardiothoracic Surgery (Cardiothoracic Surgeon, JULIO) and Critical Care Attending Cardiac Core Medications: ASA, Statin, and BB EF: 60% (02/28/23) Blood Conservation: Transfused post-op. Subscription Clerk: [facility] [id number] NotePHYSICAL THERAPY [facility] Initial Evaluation Name/MRN: Vidal Kay ([id number]) Evaluation Date: 03/02/2023 Date of : 1945 Admission Date: 02/28/2023 5:56 AM Age: 78 y.o. Room/Bed: T1-101/T1-101 A Discharge Recommendation: Home with Assist PRN and Continue to assess pending progress Equipment Needed: TBD at next level of care Assessment IMPRESSION: Patient is a 78 year old male status post CABG and aortic valve replacement that occurred on 02/28/2023. He typically is independent with all ADL's, lives in a 2 story home with his , and drives. He was able to ambulate approximately 60 feet today utilizing nezzie with contact guard assistance. He was able to complete sit to stands today also with contact guard assistance maintaining sternal precautions. Reported slight light-headedness at end end of ambulation but maintained SPO2 of 94-95%. P&C exercises completed at end of session and educated patient on reps and sets throughout the day. He demonstrated and acknowledged understanding of precautions and plan of care. Anticipate discharge home with assistance as needed pending medical progress. He reports his will be available for assistance as needed. Diagnosis: CAD in [place] artery, status post CABG and aortic valve replacement Prognosis: good Performance Deficits /Impairments: Increased Pain, Decreased Functional Mobility, Decreased ADL status, Decreased ROM, Decreased Strength, and Decreased Endurance Decision Making: Medium Complexity Subjective Patient sitting in chair upon entering room, pleasant, and agreeable to physical therapy. Cleared by nursing. Pain: [place] Pain Ratin = Hurts little more Pain Location: Sternum Past Medical History: Past Medical History: Diagnosis Date Cancer (CMS/HCC) (HCC) lymphoma Colitis Coronary artery disease Diabetes mellitus (HCC) Heart murmur Heart valve disease Past Surgical History: Past Surgical History: Procedure Laterality Date CARDIAC CATHETERIZATION CARPAL TUNNEL RELEASE COLONOSCOPY Admission Diagnosis: Patient Active Problem List Diagnosis Date Noted CAD in [place] artery 02/28/2023 Medical Precautions: No active isolations Proper PPE donned/doffed in accordance with facility standards. Fall Risk: Irwin Fall Risk Score: 45 (High Risk) Precautions/Restrictions: Sternal Precautions: No Pushing, No Pulling, No Lifting Greater Than 10 lbs Lines/Drains/Airways: Two chest tubes, PIV, correa catheter, Tele Family/Caregiver Present: none Overall Cognitive Status: WNL Overall Orientation Status: Oriented x4 Vision: wears glasses at all times and and are being used during the eval Hearing: normal Social/Functional History Patient admitted from home. Lives With: Spouse Type of Home: single family home Home Layout: Two Level Home Home Access: Bathroom Shower/Tub: Toilet: Standard Home Equipment: none Homemaking Responsibilities: Independent Receives Help From: None Active Manager Landscape: Yes Prior Level of Function ADL Assistance: Independent Ambulation Assistance: Independent Transfer Assistance: Independent Objective Lower Extremity Assessment AROM: WFL PROM: WFL Strength: WFL Bed Mobility: In chair upon entering room so bed mobility not assessed Transfers Sit to stand: Contact Guard Stand to sit: Contact Guard Ambulation Ambulation 1 Assistive device(s) used: Nezzie Assist level: Contact Guard Distance (ft): 60 Quality of gait: slow connor, postural sway Outcome Measures AM-PAC How much HELP from another person do you currently need Turning from your back to your side while in a flat bed without using bedrails?: A Little Moving from lying on your back to sitting on the side of a flat bed without using bedrails?: A Little Moving to and from a bed to a chair (including a wheelchair)?: A Little Standing up from a chair using your arms (wheelchair or bedside chair)?: A Little Walking in a hospital room?: A Little Stair climbing assessed?: No AM-PAC Inpatient Mobility Raw Score (No Stairs) : 15 JH-HLM JH-HLM Score: Walked 25 ft or more (i.e. walked outside of room) Plan Pt would benefit from skilled acute PT services to address Strengthening, ROM, Balance Training, Functional Mobility Training, Endurance Training, Gait Training, Stair Training, Neuromuscular Re-Education Training, Safety Education and Training, Patient/Caregiver Training, and Self-Care/ADL Training. Frequency: 5x/week for 4 weeks Barriers: None Safety/Education Safety Safety Devices in place: All fall risk precautions in place, call light within reach, left in chair, gait belt, patient at risk for falls, and nurse notified Restraints: No Education Education Given To: patient Education Provided: PT Role, PT Goals, Gait Training, Plan of Care, Home Exercise Program, and Precautions Education Method: Verbal and Demonstration Barriers to Learnin (more content not included)...[facility] 03-01-2023 Note* Care Coordination - Susie Mitchell RN - 03/01/2023 2:21 PM EDT Care Managment Initial Assessment Date: 03/01/2023 Patient Name: Vidal Kay : 1945 Patient Information Source of Information: Patient Cognition/Language: WFL - Within Functional Limits Permission given to speak with patient traffic workforce representative/caregiver as indicated: Confirmation of Payer with patient/family: Yes Payer Name: [employer] [place]: Yes Confirmation of Primary Care Physician: Confirmed PCP Name: Dr. Bill Seen in last 2 years?: Yes Primary Caregiver: Self If assistance needed, confirmed caregiver ready, willing and able to care for patient at discharge: Confirmed with: Living Arrangements Current Residence: House Number of Floors 2 (but lives on top level) Number of Entry Steps: (13 interior steps to 2nd level) Bed/Bath Levels: Both second floor Facility: Facility Name: Plan to Return: Lives with: Spouse/significant other Support Systems: Spouse/significant other Activities of Daily Living Ambulation: Independent Bathing/Dressing: Independent Elimination/Continence/Toileting: Independent Feeding: Independent Who Assists with Activities of Daily Living: Instrumental Activities of Daily Living Prescription Coverage: Yes Pharmacy Used: [facility] Medication Management: Independent Transportation/Shopping: Independent Transportation Mode: Car Needs Assistance with Transportation at Discharge: No Meal Preparation: Independent Laundry/Cleaning: Independent Finances/Bill Paying: Independent Communication: Independent Types of Care Services/Equipment Utilized Care Services: Dialysis Type: Durable Medical Equipment: Patient's Goal/Discharge Plan Patient expects to be discharged to: home Discharge Planning Actions: Continue to follow Patient's Choice Rights and [employer] and Collaborative Relationships Disclosed as Indicated for Post-Acute Care: Interdisciplinary Team Engagement: PT/OT, Home Health Care Social Work Referral for: Additional Information: Patient admitted to [facility] ICU s/p CABG x 2 and AVR POD # 1. Spoke with patient at bedside, introduced self and role. Patient from home with , is independent, has PCP and prescription coverage, will have a ride home and [facility]A following for home care needs. Susie Mitchell [id number]* Care Coordination - Susie Mitchell RN - 03/01/2023 2:21 PM EDT Care Managment Initial Assessment Date: 03/01/2023 Patient Name: Vidal Kay : 1945 Patient Information Source of Information: Patient Cognition/Language: WFL - Within Functional Limits Permission given to speak with patient traffic workforce representative/caregiver as indicated: Confirmation of Payer with patient/family: Yes Payer Name: [employer] [place]: Yes Confirmation of Primary Care Physician: Confirmed PCP Name: Dr. Bill Seen in last 2 years?: Yes Primary Caregiver: Self If assistance needed, confirmed caregiver ready, willing and able to care for patient at discharge: Confirmed with: Living Arrangements Current Residence: House Number of Floors 2 (but lives on top level) Number of Entry Steps: (13 interior steps to 2nd level) Bed/Bath Levels: Both second floor Facility: Facility Name: Plan to Return: Lives with: Spouse/significant other Support Systems: Spouse/significant other Activities of Daily Living Ambulation: Independent Bathing/Dressing: Independent Elimination/Continence/Toileting: Independent Feeding: Independent Who Assists with Activities of Daily Living: Instrumental Activities of Daily Living Prescription Coverage: Yes Pharmacy Used: [facility] Medication Management: Independent Transportation/Shopping: Independent Transportation Mode: Car Needs Assistance with Transportation at Discharge: No Meal Preparation: Independent Laundry/Cleaning: Independent Finances/Bill Paying: Independent Communication: Independent Types of Care Services/Equipment Utilized Care Services: Dialysis Type: Durable Medical Equipment: Patient's Goal/Discharge Plan Patient expects to be discharged to: home Discharge Planning Actions: Continue to follow Patient's Choice Rights and [employer] and Collaborative Relationships Disclosed as Indicated for Post-Acute Care: Interdisciplinary Team Engagement: PT/OT, Home Health Care Social Work Referral for: Additional Information: Patient admitted to [facility] ICU s/p CABG x 2 and AVR POD # 1. Spoke with patient at bedside, introduced self and role. Patient from home with , is independent, has PCP and prescription coverage, will have a ride home and [place]A following for home care needs. Susie Mitchell RN [facility]11-03-2023 NoteNutrition Assessment Type and Reason for Visit: Initial, Consult, Patient Education (s/p open heart surgery) Nutrition Recommendations/Plan: Continue ANNALISE diet as ordered. Monitor p.o. intake and glucose levels for appropriateness for carb-limited diet (hx of DM) Per MNT protocol, will order Ensure Surgery BID to promote p.o. intake and postop healing (330 kcal, 18 g protein, 8 oz each). Monitor indication for diabetic supplement Provided heart healthy diet handout with [facility] RD phone number. Will assess education needs at follow up visit, as able RD will monitor overall nutrition status and will follow weekly Malnutrition Assessment: Malnutrition Status: At risk for malnutrition (Comment) Findings of the 6 clinical characteristics of malnutrition: Energy Intake: Mild decrease (poor appetite currently) Weight Loss: No significant weight loss Body Fat Loss: Moderate body fat loss Orbital, Fat Overlying Ribs (? baseline, ? normal aging) Muscle Mass Loss: (moderate/severe) Temples (temporalis), Clavicles (pectoralis & deltoids) (? baseline, ? 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 Pt reports poor appetite, endorses nausea, did tolerate some eggs and sausage this a.m. Prior to admission, eating well at home, three meals daily, monitors carbohydrate intake, stable weight which is reported to be in the 140s# range. RD provided heart healthy diet handout with [facility] RD phone number for reference. Pt is agreeable to Ensure Estimated Daily Nutrient Needs: Energy Requirements Based On: Kcal/kg Weight Used for Energy Requirements: Current (25-30 kcal/kg) Weight for Energy Calculation (kg): 70.6 kg Total Energy Requirements (kcals/day): 5608-0465 Weight Used for Protein Requirements: Current (1.2-1.5 g/kg) Weight in Kg Used for Protein Requirements: 70.6 kg Estimated Total Protein (g/day): 85-106 Estimated Daily Total Fluid (ml/day): per MD Nutrition Related Findings: Nutrition History: Independent of feeding. GI symptoms: Nausea. Gumaro Scale Score: 19 .Wound Type: Surgical Incision Net IO Since Admission: 726 mL [03/01/23 1158] Edema: RUE Edema: None, LUE Edema: None, , Bowel Sounds (All Quadrants): Hypoactive Abdomen Inspection: Soft, Nondistended Labs and meds reviewed: acetaminophen, 1,000 mg, Oral, q8h [START ON 03/03/2023] amiodarone, 200 mg, Oral, Daily amLODIPine, 5 mg, Oral, Daily aspirin, 81 mg, Oral, Daily ceFAZolin, 2,000 mg, IntraVENous, q8h chlorhexidine, 15 mL, Mouth/Throat, BID ferrous sulfate, 325 mg, Oral, Daily Lidocaine, 1 patch, Topical, Daily metoclopramide, 10 mg, Oral, BID Or metoclopramide, 10 mg, IntraVENous, BID metoprolol tartrate, 25 mg, Oral, BID mupirocin, , Nasal, BID pantoprazole, 40 mg, Oral, qAM AC polyethylene glycol (PEG) 3350, 17 g, Oral, Daily senna-docusate sodium, 2 tablet, Oral, Nightly sodium chloride 0.9%, 10 mL, IntraVENous, 2 times per day amiodarone, 1 mg/min, Last Rate: 1 mg/min (03/01/23 0952) Followed by amiodarone, 0.5 mg/min insulin regular, 1-50 Units/hr, Last Rate: 5 Units/hr (03/01/23 1131) nitroprusside, 0.1-3 mcg/kg/min, Last Rate: Stopped (03/01/23 1105) norepinephrine, 0.01-3.3 mcg/kg/min, Last Rate: 0.05 mcg/kg/min (03/01/23 1200) sodium chloride, 20 mL/hr, Last Rate: 20 mL/hr (02/28/23 1153) sodium chloride, 50 mL/hr BMP: Recent Labs 02/28/23 1029 03/01/23 0005 NA 138 135 K 4.6 4.4 CL 104 103 CO2 22 21* BUN 24* 25* CREATININE 0.78 0.77 GLUCOSE 117* 124* CALCIUM 9.9 8.9 MG 4.1* 2.3 PHOS 4.0 -- Recent Labs 03/01/23 0237 03/01/23 0518 03/01/23 0723 03/01/23 0841 03/01/23 0957 03/01/23 1131 POCGLU 152* 153* 176* 176* 200* 202* Lab Results Component Value Date HGBA1C 7.3 (H) 02/19/2023 Current Nutrition Therapies: Adult diet Regular; No Added Salt (3-4 gm) Current Oral Intake Average Meal Intake: (limited) Average Supplements Intake: None Ordered Anthropometric Measures: Height: 168.9 cm (5' 6.5) Current Body Weight: 70.6 kg (155 lb 10.3 oz) (03/01) Admission Body Weight: 66.2 kg (146 lb) (02/28) Usual Body Weight: 68.9 kg (152 lb) (02/06/23) % Weight Change (Calculated): 2.4 [place] Body Weight (lbs) (Calculated): 145 lbs [place] Body Weight (Kg) (Calculated): 66 kg % [place] Body Weight (Calculated): 107.3 % BMI (kg/m2) (Calculated): 24.7 BMI Categories: Normal Weight (BMI 22.0 to 24.9) age over 65 Wt Readings from Last 10 Encounters: 03/01/23 70.6 kg (155 lb 10.3 oz) 02/19/23 66.6 kg (146 lb 12.8 oz) 02/19/23 65.8 kg (145 lb) Nutrition Diagnosis: Increased nutrient needs related to increase demand for energy/nutrients as evidenced by wounds Nutrition Inter (more content not included)...[facility]11-03-2023 Consult note* Princess Vincent, RAMONE - 03/01/2023 11:57 AM EDTAssociated Order(s): IP CONSULT TO DIETITIAN Nutrition Assessment Type and Reason for Visit: Initial, Consult, Patient Education (s/p open heart surgery) Nutrition Recommendations/Plan: Continue ANNALISE diet as ordered. Monitor p.o. intake and glucose levels for appropriateness for carb-limited diet (hx of DM) Per MNT protocol, will order Ensure Surgery BID to promote p.o. intake and postop healing (330 kcal, 18 g protein, 8 oz each). Monitor indication for diabetic supplement Provided heart healthy diet handout with [facility] RD phone number. Will assess education needs at followup visit, as able RD will monitor overall nutrition status and will follow weekly Malnutrition Assessment: Malnutrition Status: At risk for malnutrition (Comment) Findings of the 6 clinical characteristics of malnutrition: Energy Intake: Mild decrease (poor appetite currently) Weight Loss: No significant weight loss Body Fat Loss: Moderate body fat loss Orbital, Fat Overlying Ribs (? baseline, ? normal aging) Muscle Mass Loss: (moderate/severe) Temples (temporalis), Clavicles (pectoralis & deltoids) (? baseline, ? 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 Pt reports poor appetite, endorses nausea, did tolerate some eggs and sausage this a.m. Prior to admis eleanor, eating well at home, three meals daily, monitors carbohydrate intake, stable weight which is reported to be in the 140s# range. RD provided heart healthy diet handout with [facility] RD phone number for reference. Pt is agreeable to Ensure Estimated Daily Nutrient Needs: Energy Requirements Based On: Kcal/kg Weight Used for Energy Requirements: Current (25-30 kcal/kg) Weight for Energy Calculation (kg): 70.6 kg Total Energy Requirements (kcals/day): 8706-5757 Weight Used for Protein Requirements: Current (1.2-1.5 g/kg) Weight in Kg Used for Protein Requirements: 70.6 kg Estimated Total Protein (g/day): 85-106 Estimated Daily Total Fluid (ml/day): per MD Nutrition Related Findings: Nutrition History: Independent of feeding. GI symptoms: Nausea. Gumaro Scale Score: 19 .Wound Type: Surgical Incision Net IO Since Admission: 726 mL [03/01/23 1158] Edema: RUE Edema: None, LUE Edema: None, , Bowel Sounds (All Quadrants): Hypoactive Abdomen Inspection: Soft, Nondistended Labs and meds reviewed: acetaminophen, 1,000 mg, Oral, q8h [START ON 03/03/2023] amiodarone, 200 mg, Oral, Daily amLODIPine, 5 mg, Oral, Daily aspirin, 81 mg, Oral, Daily ceFAZolin, 2,000 mg, IntraVENous, q8h chlorhexidine, 15 mL, Mouth/Throat, BID ferrous sulfate, 325 mg, Oral, Daily Lidocaine, 1 patch, Topical, Daily metoclopramide, 10 mg, Oral, BID Or metoclopramide, 10 mg, IntraVENous, BID metoprolol tartrate, 25 mg, Oral, BID mupirocin, , Nasal, BID pantoprazole, 40 mg, Oral, qAM AC polyethylene glycol (PEG) 3350, 17 g, Oral, Daily senna-docusate sodium, 2 tablet, Oral, Nightly sodium chloride 0.9%, 10 mL, IntraVENous, 2 times per day amiodarone, 1 mg/min, Last Rate: 1 mg/min (03/01/23 0952) Followed by amiodarone, 0.5 mg/min insulin regular, 1-50 Units/hr, Last Rate: 5 Units/hr (03/01/23 1131) nitroprusside, 0.1-3 mcg/kg/min, Last Rate: Stopped (03/01/23 1105) norepinephrine, 0.01-3.3 mcg/kg/min, Last Rate: 0.05 mcg/kg/min (03/01/23 1200) sodium chloride, 20 mL/hr, Last Rate: 20 mL/hr (02/28/23 1153) sodium chloride, 50 mL/hr BMP: Recent Labs 02/28/23 1029 03/01/23 0005 NA 138 135 K 4.6 4.4 CL 104 103 CO2 22 21* BUN 24* 25* CREATININE 0.78 0.77 GLUCOSE 117* 124* CALCIUM 9.9 8.9 MG 4.1* 2.3 PHOS 4.0 -- Recent Labs 03/01/23 0237 03/01/23 0518 03/01/23 0723 03/01/23 0841 03/01/23 0957 03/01/23 1131 POCGLU 152* 153* 176* 176* 200* 202* Lab Results Component Value Date HGBA1C 7.3 (H) 02/19/2023 Current Nutrition Therapies: Adult diet Regular; No Added Salt (3-4 gm) Current Oral Intake Average Meal Intake: (limited) Average Supplements Intake: None Ordered Anthropometric Measures: Height: 168.9 cm (5' 6.5) Current Body Weight: 70.6 kg (155 lb 10.3 oz) (03/01) Admission Body Weight: 66.2 kg (146 lb) (02/28) Usual Body Weight: 68.9 kg (152 lb) (02/06/23) % Weight Change (Calculated): 2.4 [place] Body Weight (lbs) (Calculated): 145 lbs [place] Body Weight (Kg) (Calculated): 66 kg % [place] Body Weight (Calculated): 107.3 % BMI (kg/m2) (Calculated): 24.7 BMI Categories: Normal Weight (BMI 22.0 to 24.9) age over 65 Wt Readings from Last 10 Encounters: 03/01/23 70.6 kg (155 lb 10.3 oz) 02/19/23 66.6 kg (146 lb 12.8 oz) 02/19/23 65.8 kg (145 lb) Nutrition Diagnosis: Increased nutrient needs related to increase demand for energy/nutrients as evidenced by wounds Nutrition Interventions: Food and/or Nutrient Delivery: Continue Current Diet, Start Oral Nutrition Supplement Nutrition Education/Counseling: Education initiated, Education needed Coordination of Nutrition Care: Continue to monitor while inpatient Goals: Goals: PO intake 75% or greater, prior to discharge Nutrition Monitoring and Evaluation: Food/Nutrient Intake Outcomes: Food and Nutrient Intake, Supplement Intake Physical Signs/Symptoms Outcomes: Biochemical Data, GI Status, Nausea or Vomiting, Nutrition Focused Physical Findings, Skin, Weight Discharge Planning: Too soon to determine Princess Vincent RD, LD Contact: *[phone] or via [employer] chat [facility]11-03-2023 Consult note* Tejal Escalante APRN - CAMPUS REP - 03/01/2023 9:41 AM EDTAssociated Order(s): IP CONSULT TO ENDOCRINOLOGY Department of Internal Medicine Division of Endocrinology, Diabetes, & Metabolism Endocrinology Note Patient Name: Vidal Kay : 1945 AGE: 78 y.o. Room/Bed: T1-101/T1-101 A Admission Date: 02/28/2023 Visit Date: 03/01/2023 Reason for Endocrine Consult: post op heart Provider/Team Requesting Consult: cts PCP: Felix Bill [employer] [employer] Cox[employer]: No ASSESSMENT: Stress hyperglycemia DM2 with hyperglycemia without senior living insulin Cabgx2, AVR CAD/ HTN/HLD PLAN: Continue on insulin gtt per protocol ICU goal <180 GMF goal <150 POCT BG Q 1 Hypoglycemia per protocol Carb controlled diet ANTICIPATED ENDOCRINE HOME GOING RECOMMENDATIONS: Optimized for Discharge from Endocrine standpoint: No Home Going Endocrine Rx Recommendations-- tbd Outpt Follow Up-- Pcp and states he sees katelyn endocrine SUBJECTIVE/HPI: CHIEF COMPLAINT: No chief complaint on file. Cabgx2, AVR History of DM2 managed outpatient by PCP BGL below Resting in bed Awake Vss- RA Tired- does c/o pain States he ate bfast this am Denies nv abd pain Insulin gtt 3/hr Amio gtt on Does wear dexcom g6- on right arm- no lifter/driver with him States bgl usually controlled at home Spoke to nursing and CTS Type of DM: 2 Onset of DM: 7 years ago Home DM Medication Regimen: farxiga 10, glipizide 10 daily, lantus pens 15 hs DM control (last A1c/glucose data): Lab Results Component Value Date HGBA1C 7.3 (H) 02/19/2023 Glucose Date/Time Value Ref Range Status 03/01/2023 08:41 AM 176 (H) 70 - 100 mg/dL Final 03/01/2023 07:23 AM 176 (H) 70 - 100 mg/dL Final 03/01/2023 05:18 AM 153 (H) 70 - 100 mg/dL Final 03/01/2023 02:37 AM 152 (H) 70 - 100 mg/dL Final 03/01/2023 01:12 AM 132 (H) 70 - 100 mg/dL Final 02/28/2023 11:01 PM 129 (H) 70 - 100 mg/dL Final Review of Systems All other systems reviewed and are negative. ROS negative except for those mentioned in HPI. OBJECTIVE: Vitals: 03/01/23 0645 03/01/23 0700 03/01/23 0715 03/01/23 0857 BP: BP Location: Patient Position: Pulse: (!) 117 108 (!) 120 Resp: (!) 11 (!) 9 (!) 11 Temp: TempSrc: SpO2: 97% 96% 96% Weight: Height: 5' 6.5 (1.689 m) Physical Exam Vitals and nursing note reviewed. Constitutional: General: He is not in acute distress. Appearance: He is ill-appearing. He is not toxic-appearing. HENT: Head: Normocephalic and atraumatic. Cardiovascular: Rate and Rhythm: Normal rate. Pulmonary: Effort: Pulmonary effort is normal. Abdominal: General: There is no distension. Palpations: Abdomen is soft. Skin: General: Skin is warm and dry. Comments: Intact incision Neurological: Mental Status: He is alert and oriented to person, place, and time. Psychiatric: Mood and Affect: Mood normal. Behavior: Behavior normal. 24 hour intake/output: Intake/Output Summary (Last 24 hours) at 03/01/2023 0941 Last data filed at 03/01/2023 0700 Gross per 24 hour Intake 4884 ml Output 3881 ml Net 1003 ml Diet: Adult diet Regular; No Added Salt (3-4 gm) Medications (as per EMR): HomeMeds: Current Outpatient Medications Medication Instructions ascorbic acid (VITAMIN C) 1,000 mg, Oral, Daily aspirin 81 mg, Oral, Daily dapagliflozin (FARXIGA) 10 mg, Oral, Daily ferrous sulfate 325 (65 Fe) MG tablet 1 tablet, Oral, Daily glipiZIDE (GLUCOTROL) 10 mg, Oral, Daily glucosamine-chondroitin 500-400 MG tablet 1 tablet, Oral, 3 times daily insulin glargine (LANTUS) 15 Units, SubCUTAneous, Nightly mesalamine (LIALDA) 2,400 mg, Oral, Daily with breakfast, Do not crush, chew, or split. Multiple Vitamins-Minerals (multivitamin with minerals) tablet 1 tablet, Oral, Daily mupirocin (Bactroban) 2 % ointment Apply liberal amount per nostril the night before surgery and then again the morning of surgery ramipril (ALTACE) 5 mg, Oral, Daily Scheduled Meds:acetaminophen, 1,000 mg, Oral, q8h albumin human, 50 g, IntraVENous, Once [START ON 03/03/2023] amiodarone, 200 mg, Oral, Daily amLODIPine, 5 mg, Oral, Daily aspirin, 81 mg, Oral, Daily ceFAZolin, 2,000 mg, IntraVENous, q8h chlorhexidine, 15 mL, Mouth/Throat, BID ferrous sulfate, 325 mg, Oral, Daily Lidocaine, 1 patch, Topical, Daily metoclopramide, 10 mg, Oral, BID Or metoclopramide, 10 mg, IntraVENous, BID metoprolol tartrate, 25 mg, Oral, BID mupirocin, , Nasal, BID pantoprazole, 40 mg, Oral, qAM AC polyethylene glycol (PEG) 3350, 17 g, Oral, Daily senna-docusate sodium, 2 tablet, Oral, Nightly sodium chloride 0.9%, 10 mL, IntraVENous, 2 times per day Continuous Infusions:amiodarone, 1 mg/min Followed by amiodarone, 0.5 mg/min insulin regular, 1-50 Units/hr, Last Rate: 2 Units/hr (03/01/23 0841) nitroprusside, 0.1-3 mcg/kg/min, Last Rate: 1.25 mcg/kg/min (03/01/23 0620) sodium chloride, 20 mL/hr, Last Rate: 20 mL/hr (02/28/23 1153) sodium chloride, 50 mL/hr PRN Meds:PRN medications: calcium gluconate, dextrose, dextrose, glucagon (rDNA), glucose, magnesium hydroxide, magnesium sulfate OR magnesium sulfate, ondansetron ODT OR ondansetron, oxyCODONE OR oxyCODONE, potassium chloride OR potassium chloride OR potassium chloride, potassiu m chloride CR, sodium chloride, sodium chloride 0.9% Diagnostic Workup: I reviewed pertinent Laboratory results, Radiographic results, and Other Clinical Notes at the timeof today's encounter. Labs: No components found for: LABA1C No components found for: EAG Lab Results Component Value Date NA 135 03/01/2023 K 4.4 03/01/2023 CL 103 03/01/2023 CO2 21 (L) 03/01/2023 BUN 25 (H) 03/01/2023 CREATININE 0.77 03/01/2023 GLUCOSE 124 (H) 03/01/2023 CALCIUM 8.9 03/01/2023 No results found for: CHLPL, CHOL No results found for: TRIG No results found for: HDL No results found for: LDLCALC No results found for: VLDL No results found for: CHOLHDLRATIO No results found for: [id number] No results found for: TSH, [id number], [id number], THYROIDAB Radiology reportsas per the Radiologist Radiology: ECG 12 lead Result Date: 03/01/2023 Atrial fibrillation Anterior infarct, acute XR chest 1 view Result Date: 03/01/2023 Patient Name: VIDAL KAY : 1945 Date/Time: 03/01/2023 05:14 Procedure: XR CHEST 1 VIEW Ordering Provider: WALSH MATTHEW Reason For Exam: Shortness of breath CHEST RADIOGRAPH CLINICAL INDICATION: Shortness of breath TECHNIQUE: AP COMPARISON: 02/28/2023 chest radiograph FINDINGS: Stable positioning of right IJ [place]-Jose catheter and mediastinal drain. Cardiomediastinal: The cardiomediastinal silhouette is stable in size and configuration. Lungs: Small bilateral pleural effusions with associated atelectasis, right greaterthan left. Increased interstitial lung markings concerning for pulmonary edema. No pneumothorax. Osseous structures: No acute osseous abnormality. See findings. Report Dictated on Electronically Signed By: Ravinder Garnett MD Electronically Signed Date/Time: 03/01/2023 5:25 AM EDT ECG 12 lead Sinus tachycardia Ventricular premature complex Nonspecific T abnormalities, lateral leads Borderline ST elevation, anterior leads XR chest 1 view Result Date: 02/28/2023 Patient Name: VIDAL KAY : 1945 Date/Time: 02/28/2023 11:54 Procedure: XR CHEST 1 VIEW Ordering Provider: WALSH MATTHEW Reason For Exam: Post op open heart surgery CHEST - PORTABLE: CLINICAL INDICATION: Postop open heart surgery. TECHNIQUE: Portable AP COMPARISON: 02/19/2023. FINDINGS/IMPRESSION: Limitations: Slight patient rotation and multiple overlying leads/support devices Lines, tubes, and devices: Endotracheal tube has its tip about 4 cm above the herbert. Right IJ H[place]-Jose catheter with its tip in the proximal right pulmonary artery. NG tube with its tip in the proximal stomach. Mediastinal drain and left basilar chest tube in place. Cardiomediastinal silhouette: Postsurgical changes with median sternotomy wires and cardiac valve prosthesis. Lungs/Pleura: Slight coarsening of the interstitial lung markings in part likely reflecting chronic lung changes. There may be element of mild central pulmonary vascular congestion. Mild left basilar atelectasis. No sizable pleural effusions. No pneumothorax. Osseous structures: Degenerative spondylosis in the visualized spine. Soft tissues: No soft tissue abnormality is detected. Report Dictated on Electronically Signed By: Isaias Vasquez MD Electronically Signed Date/Time: 02/28/2023 1:23 PM EDT Transesophageal echocardiogram (LAURIE) with contrast and 3D PRN Result Date: 02/28/2023 Left Ventricle: Left ventricle size is normal. Mildly increased wall thickness. Normal left ventricular systolic function. LVEF pre and post AVR is normal , visually about 60%. Normal wall motion. Right Ventricle: Right ventricle size is normal. Normal systolic function. Aortic Valve: Pre-valve replacement: Severe stenosis of the aortic valve. By planimetery valve area was 1 cm2.Mild regurgitation. s/p Bioprosthetic AVR . well seated, functioning normally (Mean gradient 8 mmHg, V max 2.1 m/s). No perivalvular or valvular regurgitation Mitral Valve: Mildly thickened leaflets. Mild to moderate (1-2+) regurgitation. ECG 12 lead Sinus rhythm Right bundle branch block History/Other: Past Medical History: Past Medical History: Diagnosis Date Cancer (CMS/HCC) (HCC) lymphoma Colitis Coronary artery disease Diabetes mellitus (HCC) Heart murmur Heart valve disease Past Surgical History: Past Surgical History: Procedure Laterality Date CARDIAC CATHETERIZATION CARPAL TUNNEL RELEASE COLONOSCOPY Allergy(ies): No Known Allergies Family History: No family history on file. Social History: Social History Tobacco Use Smoking status: Former Packs/day: 1.00 Years: 20.00 Additional pack years: 0.00 Total pack years: 20.00 Types: Pipe, Cigarettes Start date: 1982 Quit date: 1989 Years since quittin.8 Smokeless tobacco: Current Types: Chew Tobacco comments: snuff Vaping Use Vaping Use: Never used Substance Use Topics Alcohol use: Not Currently Drug use: Not Currently Portions of the information within this encounter were entered using an electronic dictation system. Best attempts were made to edit/proofread the information prior to note completion. Despite the review of information, some errors may remain. If there are questions related to the information contained within the note please contact the signing physician directly. I spent 30 minutes with the pt which involved coordination of care, medical evaluation, review of records, and/or counseling of the pt regarding his/her condition/disease state/prognosis on the date of this note. Associated attestation - Celsa Grissom MD - 03/01/2023 5:18 PM EDT Attending Supervising Physician's Attestation Statement The patient is a 78 y.o. male. I have performed a history and physical examination of the patient. I discussed the case with the nurse practitioner. 78-year-old patient with history of type 2 diabetes and was admitted for CABG and bioprosthetic AVRfor CAD and nonrheumatic aortic valve stenosis. Patient was seen at bedside with his family History obtained from both patient and family member Patient feels tired Had a small portion of breakfast and had vomiting. Appetite remains poor Diabetes is fairly controlled with an A1c of 7.3% Takes Farxiga 10 Mg daily, glipizide 10 Mg 1 tablet daily , Lantus 15 units daily Uses a dexcom . Currently not in use On Exam Patient is AAOX 3 Sleepy but arousable CVS:S1S2+ ON telemetry RS: Chest tubes noted I reviewed the patient's Past Medical History, Past Surgical History, Medications, and Allergies. Physical Exam: Vitals: 03/01/23 1145 03/01/23 1200 03/01/23 1215 03/01/23 1230 BP: BP Location: Patient Position: Pulse: 53 53 52 52 Resp: 17 17 13 17 Temp: 36.2 C (97.2 F) 36.2 C (97.2 F) 36.2 C (97.2 F) 36.2 C (97.2 F) TempSrc: SpO2: (!) 86% 98% 95% 96% Weight: Height: Assessment Type 2 diabetes with hyperglycemia and long-term insulin use CAD s/p CABG Aortic valve stenosis s/p AVR Hypertension Hyperlipidemia Recommendations Continue Insulin drip per protocol today . Based on clinic status should be able to transition to subcutaneous insulin by tomorrow Impression/Plan I reviewed and agree with the findings and plan documented in her note . I personally saw and evaluated the patient. I reviewed and agree with the JULIO's documentation. I provided a substantive portion of the care of this patient. I personally performed the medical decision making in entirety for the encounter as mentioned above [employer] Phone: 1(110) 947-149211-03-2023 NoteReceived referral and reviewed chart. Unable to discuss Phase II Cardiac Rehab Referral with Vidal Kay at this time. Will follow to discuss cardiac rehab when appropriate. Patient will be contacted at home if discharged prior to discussion. [facility]11-03-2023 History of Present illness Narrative* Sumanth Woodson MD - 03/01/2023 9:15 AM EDT Transfusion Medicine Resident Review Note Product type: 1 unit of pRBC, O positive Reason for Review: Hemoglobin > 7.0 g/dL Indications for Transfusion: The patient is s/p CABG on 02/28/2023. The patient's hemoglobin is 7.2 g/dl. Result of Review: APPROVED: Product to be issued Please contact the blood bank if there are any issues receiving the product for transfusion at *[phone] ([facility]) or *[phone] ([facility]) Associated attestation - Silke Worthy MD - 03/01/2023 2:49 PM EDT Attending Supervising Physician's Attestation Statement I reviewed the patient's chart and agree as documented in the resident physician's note. documented in this [facility]11-03-2023 Consult note* Citlalli Ramos - 03/01/2023 7:32 AM EDTAssociated Order(s): IP CONSULT TO CARDIAC REHAB Received referral and reviewed chart. Unable to discuss Phase II Cardiac Rehab Referral with Vidal Kay at this time. Will follow to discuss cardiac rehab when appropriate. Patient will be contacted at home if discharged prior to discussion. [id number] NotePatient: Vidal Kay Procedure Summary Date: 02/28/23 Room / Location: [place] [address] [facility] Operating Room Anesthesia Start: 0656 Anesthesia Stop: 1111 Procedures: TISSUE AORTIC VALVE REPLACEMENT, CORONARY ARTERY BYPASS GRAFT, TRANSESOPHAGEAL ECHOCARDIOGRAM (Chest) CABG X3 ARTERIAL GRAFTS (Chest) Echocardiography transesophageal real-time Diagnosis: Nonrheumatic aortic (valve) stenosis Atherosclerotic heart disease of [place] coronary artery without angina pectoris (Nonrheumatic aortic (valve) stenosis [I35.0]) (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]) Surgeons: Eduar Rodríguez MD Responsible Provider: Sumanth Benito MD Anesthesia Type: general ASA Status: 3 Anesthesia Type: general Vitals Value Taken Time BP 176/63 02/28/23 1121 Temp 36.8 ?C (98.2 ?F) 02/28/23 1121 Pulse 72 02/28/23 1132 Resp 14 02/28/23 1132 SpO2 100 % 02/28/23 1132 Vitals shown include unfiled device data. Anesthesia Post Evaluation Patient location during evaluation: ICU Patient participation: complete - patient cannot participate Level of consciousness: intubated and sedated Pain management: adequate Airway patency: patent Dental Injury: no Cardiovascular status: acceptable and hemodynamically stable Respiratory status: acceptable, ETT, intubated and ventilator Hydration status: acceptable Nausea/Vomiting: controlled No notable events documented. Patient can be discharged once all PACU criteria has been met.[facility] [id number] NotePatient: Vidal Kay Procedure Summary Date: 02/28/23 Room / Location: [facility] OR Operating Room Anesthesia Start: 0656 Anesthesia Stop: 1111 Procedures: TISSUE AORTIC VALVE REPLACEMENT, CORONARY ARTERY BYPASS GRAFT, TRANSESOPHAGEAL ECHOCARDIOGRAM (Chest) CABG X3 ARTERIAL GRAFTS (Chest) Echocardiography transesophageal real-time Diagnosis: Nonrheumatic aortic (valve) stenosis Atherosclerotic heart disease of [place] coronary artery without angina pectoris (Nonrheumatic aortic (valve) stenosis [I35.0]) (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]) Surgeons: Eduar Rodríguez MD Responsible Provider: Sumanth Benito MD Anesthesia Type: general ASA Status: 3 Anesthesia Type: general Vitals Value Taken Time BP 176/63 02/28/23 1121 Temp 36.8 ?C (98.2 ?F) 02/28/23 1121 Pulse 74 02/28/23 1129 Resp 16 02/28/23 1129 SpO2 100 % 02/28/23 1129 Vitals shown include unfiled device data. Anesthesia Post Evaluation Patient participation: complete - patient cannot participate Post-procedure mental status: sedated/intubated. Pain score: 0 Pain management: adequate Multimodal analgesia pain management approach Airway patency: patent Two or more strategies used to mitigate risk of obstructive sleep apnea Cardiovascular status: hemodynamically stable Respiratory status: acceptable, intubated, ventilator and ETT Hydration status: acceptable Multiple nitroglycerin bolus doses given. Fentanyl 100 mcg iv via cordis on arrival to hlu. No notable events documented. MIPS #430 PONV Patient received an inhalational anesthetic (4554F) Patient does not exhibit three or more risk factors for PONV (X0430)) MIPS # 424 Perioperative Temperature Management Anesthesia time was 60 minutes or longer (4255F) Anesthesai administered was General (inhalational or TIVA) or Neuraxial block (X0424) At least one body temperature greater than 95.8F/35.5C achieved within the 30 mins immediately prior to or the 15 minutes immediately following anesthesia end time (G9771) MIPS #477 Multimodal Pain Management Not emergent case Patient was not administered multimodal pain management (G2149) Intubated patient (G2149) MIPS #404 Anesthesiology Smoking Abstinence The patient is not a current smoker (e.g. cigarette, cigar, pipe, e-cigarette/vaping/marijuana) If no stop here (G9644) I completed my handoff to the receiving clinician during which we: 1. Identified the patient 2. Identified the responsible provider 3. Reviewed the pertinent medical history 4. Discussed the surgical course 5. Reviewed intra-op anesthesia management and issues during anesthesia 6. Set expectations for post-procedure period 7. Allowed opportunity for questions and acknowledgement of understanding.[facility]11-02-2023 Consult note* Phoenix Walsh APRN - CAMPUS REP - 02/28/2023 11:23 AM EDT Images from the original note were not included. [facility]: Critical Care Consultation Note Date: 02/28/23 PATIENT NAME: Vidal Kay : 1945 (78 y.o.) Reason for Consult: Critical Care & Vent Management HPI: Vidal Kay is a 78 y.o. male referred by Dr. Baig for severe coronary artery bypass surgery reshma aortic valve replacement. He presented as an OP for AVR and CABG x [address] Rodríguez. Surgery: 02/28/23 Rodríguez: CABG x 2, Tissue AVR, LEVH Interval History: 02/28/23: POD #0: Patient arrived to the unit, intubated and sedated. Surgical hand off completed below. Review of Systems Constitutional: Negative for diaphoresis, fatigue and fever. Respiratory: Negative for cough, shortness of breath and wheezing. Cardiovascular: Negative for chest pain, palpitations and leg swelling. Gastrointestinal: Negative for abdominal distention, constipation and diarrhea. Skin: Negative for color change, pallor and rash. Allergies: Patient has no known allergies. Past Medical History: has a past medical history of Cancer (CMS/HCC) (HCC), Colitis, Coronary artery disease, Diabetes mellitus (HCC), Heart murmur, and Heart valve disease. Past Surgical History: has a past surgical history that includes Carpal tunnel release; Cardiac catheterization; and Colonoscopy. Social History: reports that he quit smoking about 33 years ago. His smoking use included pipe and cigarettes. He started smoking about 40 years ago. He has a 20.00 pack-year smoking history. His smokeless tobacco use includes chew. He reports that he does not currently use alcohol. He reports that he does not currently use drugs. Family History: family history is not on file. Medications: Prior to Admission medications Medication Sig Start Date End Date Taking? Authorizing Provider ascorbic acid (Vitamin C) 1000 MG tablet Take 1,000 mg by mouth daily. Yes Historical Provider, aspirin 81 MG EC tablet Take 81 mg by mouth daily. Yes Historical Provider, chlorhexidine (Peridex) 0.12 % solution Use 15 mL in the mouth or throat Once for 1 dose. Swish for30 seconds and spit out the night before surgery. Do not swallow. 02/21/23 02/28/23 Yes VINICIO Ballard CNP dapagliflozin (Farxiga) 10 MG Take 10 mg by mouth daily. Yes Historical Provider, ferrous sulfate 325 (65 Fe) MG tablet Take 1 tablet by mouth daily. 10/16/22 Yes Historical Provider, glipiZIDE (Glucotrol) 5 MG tablet Take 10 mg by mouth daily. Yes Historical Provider, glucosamine-chondroitin 500-400 MG tablet Take 1 tablet by mouth 3 times daily. Yes Historical Provider, insulin glargine (Lantus) 100 UNIT/ML injection Inject 15 Units under the skin Nightly. Yes Historical Provider, mesalamine (Lialda) 1.2 g EC tablet Take 2,400 mg by mouth daily (with breakfast). Do not crush, chew, or split. Yes Historical Provider, Multiple Vitamins-Minerals (multivitamin with minerals) tablet Take 1 tablet by mouth daily. Yes Historical Provider, mupirocin (Bactroban) 2 % ointment Apply liberal amount per nostril the night before surgery and then again the morning of surgery 02/21/23 Yes VINICIO Ballard CNP ramipril (Altace) 5 MG capsule Take 5 mg by mouth daily. Yes Historical Provider, Surgery Hand Off: Arrival Time in HLU: 1120 Complications/Pertinent Events: none Last Paralytic: 0945 Gtts OR report Epinephrine: Norepinephrine: Phenylephrine: Vasopressin: Nitroglycerin: Nitroprusside: Dobutamine: Milrinone: Propofol: 40 Insulin: Amicar: 29 Current gtts upon arrival Epinephrine: Norepinephrine: Phenylephrine: Vasopressin: Nitroglycerin: Nitroprusside: 10 Dobutamine: Milrinone: Propofol: 40 Insulin: Amicar: 29 Devices: Epicardial wires: yes [x] no [] Blood Transfusions Intra Op: yes [x] no [] 2 units on pump CellSaver: 800ml Vital Signs including Cardiac Numbers (if indicated) at Conclusion of Hand-off OR HLU CO 5.4 CI 2.8 CVP 12 SVR 900 PAP 31/14 Additional Interventions/Misc during Handoff Fentanyl 100 mcg 1 syringe of nitro Objective: BP (!) 155/76 Pulse 79 Temp 36.8 C (98.2 F) (Core) Resp 16 Ht 5' 6.5 (1.689 m) Wt 146 lb(66.2 kg) SpO2 99% BMI 23.21 kg/m Intake/Output Summary (Last 24 hours) at 02/28/2023 1123 Last data filed at 02/28/2023 1051 Gross per 24 hour Intake 1620 ml Output 2721 ml Net -1101 ml Physical Exam Constitutional: Interventions: He is sedated and intubated. HENT: Mouth/Throat: Comments: ETT in place Neck: Vascular: No JVD. Trachea: Trachea normal. Cardiovascular: Rate and Rhythm: Normal rate and regular rhythm. Pulses: Radial pulses are 2+ on the right side and 2+ on the left side. Heart sounds: Normal heart sounds, S1 normal and S2 normal. Pulmonary: Effort: He is intubated. Breath sounds: Decreased breath sounds present. Abdominal: General: Bowel sounds are absent. Musculoskeletal: Right lower leg: No edema. Left lower leg: No edema. Skin: Findings: Bruising and ecchymosis present. Comments: Surgical dressing dry and intact Diagnostics: Reviewed in EMR Labs: Reviewed in EMR BMP: Recent Labs 02/28/23 1029 NA 138 K 4.6 CL 104 CO2 22 BUN 24* CREATININE 0.78 CALCIUM 9.9 MG 4.1* PHOS 4.0 CBC: Recent Labs 02/28/23 1029 HGB 9.0 INR: Recent Labs 02/28/23 1029 INR 1.3* Assessment: CAD Aortic Valve stenosis S/P Tissue AVR HTN HLD Former smoker DM II Post operative Pulm Management: Normal Post-operative Course Post-operative Atrial Fibrillation: []Yes [x] No Acute blood loss anemia/consumptive none Plan: - Start nipride gtt for the HTN - fentanyl 100 mcg - Start precedex - EKG reviewed - CXR pending completion - Endo consulted for BS needs - Sugamadex - Hemodynamic goals: CI >2.0, SBP 90-130 mmHg, MAP 60-75 - PRN Hypertension 1st option Cardene gtt 2nd option or if Cardene unavailable Nitro -PRN Hypotension CI >2.0 euvolemic with low SVR- Levophed gtt CI <2.0 euvolemic - Epinephrine gtt - Temp pacing wires/mode: Back up - Chest tubes: no air leak or fluctuation noted, suction -20 cm - Cefazolin - surgical prophy for 5 doses total - Wean to Extubation: Arrival Time in unit: [id number] - Vent: ACVC+, TV 6ml/kg/min, rate 12, fio2 100% PEEP 8 VAP protocol: HOB >30 degrees; peridex BID - Insulin gtt; per endo/protocol - GI prophy: Protonix IV daily Patient treatment plan and plan of care discuss with Dr. Yasmani Matt Associated attestation - Yasmani Matt MD - 02/28/2023 7:41 PM EDT I have personally seen the patient and examined along with the JULIO/resident team. I personally obtained the vaughan and relevent portions of the history and performed physical exam. I reviewed the chart including MAR , labs and radiology and discussed the patient's plan of action with the resident/JULIO.This note reflects my plan of care as I have edited the note to reflect my findings and my assessment and plan. Date of service: 02/28/23 Discussed with: []Residents [x]Patient/Family [x]RN [x]Consultants []SW/TCC []Other [x]JULIO Personally Reviewed: [x]Epic notes [x]Radiology studies [x]Labs [x]EKG []Other In addition to resident/JULIO documentation pertinent History, ROS, and/or Physical Exam findings include: 78 year-old male with PMH significant for CAD, non-rheumatic aortic valve disease, HTN, prior tobacco use, DM2, and ulcerative colitis on mesalamine. Presents to ICU s/p bioprosthetic aortic valve replacement and CABGx2. Assessment: -mvCAD s/p CABG -non-rheumatic aortic valve stenosis s/p bioprosthetic AVR -HTN -HLD -Prior tobacco use -DM2 -Ulcerative colitis -reactive leukocytosis -ABLA Plan: -continue lung protective ventilation -Start SBT once awake, alert, with adequate pain control -glycemic control per endo -continue perez-op abx -continue multimodal pain regimen -monitor chest tube output -remainder as per JULIO documentation Excluding procedures, the total critical care time invested in the care of this patient with life threatening/unstable organ failure today is at least 35 minutes. This includes direct patient contact, review of medical record, management of life support systems, review of data including imaging andlabs, discussions with other team members, patient's family and physicians. [id number] NoteCentral Venous Line: Date/Time: 02/28/2023 7:40 AM A central venous line was placed in the Procedural for the following indication(s): central venous access and CVP monitoring. Sterility preparation included the following: provider hand hygiene performed prior to central venous catheter insertion, all 5 sterile barriers used (gloves, gown, cap, mask, large sterile drape) during central venous catheter insertion, antiseptic used during central venous catheter insertion and skin prep agent completely dried prior to procedure. The patient was placed in Trendelenburg position. Right internal jugular vein was prepped. The site was prepped with Chlorhexidine. Size: 8 Palestinian Catheter type: introducer Number of Lumens: single lumen During the procedure, the following specific steps were taken: target vein identified, needle advanced into vein and blood aspirated and guidewire advanced into vein. Procedure performed using ultrasound guidance - Image permanently retained with wire or catheter in vein. Sterile gel and probe cover used in ultrasound-guided central venous catheter insertion. Intravenous verification was obtained by ultrasound. Post insertion care included: all ports aspirated, all ports flushed easily, guidewire removed intact, Biopatch applied, line sutured in place and dressing applied. During the procedure the patient experienced: patient tolerated procedure well with no complications. A non-oximetric, 7.5 (size) Pulmonary Artery Catheter (PAC) was placed through the Introducer CVL in the right internal jugular vein. The PAC placement was confirmed by pressure tracing changes. Staffing Performed: anesthesiologist Anesthesiologist: Sumanth Benito MD Performed by: VINICIO Lema CRNA Authorized by: Huey Salter APRN - [facility]11-02-2023 NoteAirway Date/Time: 02/28/2023 7:09 AM Urgency: scheduled Airway not difficult General Information and Staff Patient location during procedure: Procedural Anesthesiologist: Sumanth Benito MD Performed: [employer] Performed by: VINICIO Lema CRNA Authorized by: VINICIO Lema CRNA Indications and Patient Condition Indications for airway management: anesthesia and airway protection Sedation level: Asleep Preoxygenated: yes Patient position: sniffing Mask difficulty assessment: 1 - vent by mask Final Airway Details Final airway type: endotracheal airway Successful airway: ETT Cuffed: yes Successful intubation technique: direct laryngoscopy Blade: Moody Blade size: #3 ETT size (mm): 8.0 Cormack-Lehane Classification: grade IIa - partial view of glottis Placement verified by: chest auscultation and capnometry Measured from: lips ETT to lips (cm): 23 Number of attempts at approach: 1 Number of other approaches attempted: [address] [place], [place] 5647211-02-2023 Note Arterial Line: Date/Time: 02/28/2023 7:08 AM An arterial line was placed Procedure performed using ultrasound guidance - Image permanently retained with wire or catheter in vein.in the Procedural for the following indication(s): continuous blood pressure monitoring and blood sampling needed. A 20 gauge (size), 1 and 3/4 inch (length), Arrow (type) catheter was placed, into the Left radial artery, secured by Tegaderm and tape. Events: patient tolerated procedure well with no complications. Staffing Performed: [employer] Resident/[employer]: VINICIO Lema CRNA Performed by: VINICIO Lema CRNA Authorized by: Huey Salter APRN - [facility]11-02-2023 Note* Home Care - Neyda Rust RN - 02/28/2023 8:43 AM EDT Sales Management Trainee following case for Discharge Needs. [id number] Note* Home Care - Neyda Rust RN - 02/28/2023 8:43 AM EDT Sales Management Trainee following case for Discharge Needs. [id number] NotePatient: Vidal Kay Procedure Information Date/Time: 02/28/23 0700 Procedures: TISSUE AORTIC VALVE REPLACEMENT, CORONARY ARTERY BYPASS GRAFT, TRANSESOPHAGEAL ECHOCARDIOGRAM (Chest) CABG X3 ARTERIAL GRAFTS (Chest) Echocardiography transesophageal real-time Location: [facility] Operating Room Surgeons: Eduar Rodríguez MD Past Medical History: Past Medical History: No date: Cancer (CMS/HCC) ([facility]) Comment: lymphoma No date: Colitis No date: Coronary artery disease No date: Diabetes mellitus ([facility]) No date: Heart murmur No date: Heart valve disease Past Surgical History: Past Surgical History: No date: CARDIAC CATHETERIZATION No date: CARPAL TUNNEL RELEASE No date: COLONOSCOPY Social History: TOBACCO: reports that he quit smoking about 33 years ago. His smoking use included pipe and cigarettes. He started smoking about 40 years ago. He has a 20.00 pack-year smoking history. His smokeless tobacco use includes chew. ETOH: reports that he does not currently use alcohol. Social History Substance and Sexual Activity Drug Use Not Currently Family History: No family history on file. Screening: unknown Clinical information reviewed: Tobacco Allergies Meds Med Hx Surg Hx Soc Hx Physical Exam Airway Mallampati: II TM distance: >3 FB Neck ROM: full Mouth Open: normal Cardiovascular Dental dentition normal Pulmonary Abdominal Anesthesia Plan patient is NPO appropriate Any family history or previous problems with anesthesia no ASA 3 general Any family history or previous problems with anesthesia no The patient is not a current smoker. Patient did not smoke on day of procedure. Anesthetic plan and risks discussed with patient. Blood Glucose Insulin Sliding Scale: medium ERAS Type No ERAS Xanax ordered preop [place] Screening STOP-Bang Total Score: 3 Labs: No results found for: WBC, HGB, HCT, MCV, PLT No results found for: NA, K, CL, CO2, BUN, CREATININE, GLUCOSE, CALCIUM, PROT, BILIRUBINFL, ALKPHOS, AST, ALT, EGFR, GLOB No echocardiogram results found for the past 14 days No results found for this or any previous visit.[facility] 02-19-2023 NoteComprehensive Pre Surgical History and Physical ? Name: Vidal Kay : 1945 (Age-78 y.o.) Date of Service: Pt seen/examined on 02/19/2023 Procedure Information Date/Time: 02/28/23 0700 Procedures: TISSUE AORTIC VALVE REPLACEMENT, CORONARY ARTERY BYPASS GRAFT, TRANSESOPHAGEAL ECHOCARDIOGRAM (Chest) CABG X3 ARTERIAL GRAFTS (Chest) Echocardiography transesophageal real-time Location: [facility] OR Operating Room Surgeons: Eduar Rodríguez MD Chief Complaint: Patient needs a new Aortic valve due to stenosis and has blocked coronary arteries that will need replaced ASSESSMENT/PLAN: Patient is considered intermediate risk for this high risk procedure/surgery () with no reducible risk factors. Based on the above evaluation, the benefits of the planned procedure likely exceed the risks. The patient is medically optimized to proceed with the planned procedure without any further cardiopulmonary testing. 1) Nonrheumatic aortic (valve) stenosis [I35.0] 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] - Managed per surgery 2) Former smoker quit 1979 - 1 pack(s) a day for about 40 years - EKG as below - H&H pending - Yes, 3) CAD - Follows with DR BAIG for cardiology - History of stents No. Patient instructed to continue aspirin uninterrupted as discontinuation of aspirin in the presence of a coronary stent has been associated with perez-operative stent thrombosis, myocardial infarction and . Patient verbalized understanding rationale and instruction. -Patient reports compliance to medication. 4) DM Type 2 - Managed by pcp. - Patient reports compliance to medications - Diabetic medications per PAT protocol. - Patient aware per anesthesia protocol, BS must be below 250 DOS Toxic Drug Monitoring: Drug: farxiga lantus glipizide Route: Oral Monitoring: EKG - yes VS - as above Labs: Yes - BMP, A1C, glucose DOS 5)HTN -complaint with antihypertensives - yes Toxic Drug Monitoring: Drug: Altace asa 81mg aspirin continue Route: Oral Monitoring: EKG - yes VS - as above Labs: Yes - -encouraged lifestyle modifications -reports monitoring BP at home - yes BP Readings from Last 3 Encounters: 02/19/23 132/66 6)ulcerative colitis -dr zakiya zepeda [facility] -under control Visit Type: Pre-Admission Testing Visit Labs Ordered: YES - PER PAT PROTOCOL Sleep Referral Ordered: NO - NEGATIVE SCREEN PER SLEEP REFERRAL PROTOCOL Total time spent (which include face to face and non face to face encounters) : 30 minutes Toxic drug monitoring/narrow therapeutic index drug monitoring : # Drug name : timothy # Route administered : po # Method of monitoring : bmp A1c PAT Protocol referenced includes: 1. Anesthesia Lab Protocol Orders 2. Perioperative Cardiovascular Risk Assessment 3. Anesthesia Assessment 4. Pain Assessment and Acute Pain Service Consult (if appropriate) 5. Medical Clearance/Consult from Internal Medicine (IMS) 6. Shower/Wash Order (for designated surgeries) 7. LAKE Screen and Sleep Clinic Referral (if appropriate) History Of Present Illness: 78 y.o. male who we are asked to see/evaluate by [place] [id number] for pre-operative evaluation prior to . TISSUE AORTIC VALVE REPLACEMENT, CORONARY ARTERY BYPASS GRAFT, TRANSESOPHAGEAL ECHOCARDIOGRAM (Chest) [24932 CPT(R)] CABG X3 ARTERIAL GRAFTS (Chest) [57610 CPT(R)] Echocardiography transesophageal real-time [01023 CPT(R)] Anesthesia type: General ? This 78-year-old previously healthy and very active gentleman has been followed for aortic stenosis. He has developed severe, symptomatic aortic stenosis with concomitant coronary artery disease. He has a significant lesion within the proximal LAD and a significant lesion within the proximal right coronary artery. The distal right coronary artery is a small target but may be amenable to revascularization. The LAD is a good target We discussed a bioprosthesis with this patient because of his advanced age and the need to avoid long-term anticoagulation. I believe a bioprosthesis would be his best option for. Lowest risk and durable replacement with concomitant coronary bypass surgery. The risk of significant complication or morbidity/mortality is less than 2%. After being provided informed consent, the patient agrees to proceed. Dr Rodríguez office notes 02/19/2023 Heart cath completed 02/13/2023 Denies history of UT,CHF, TIA, CVA Past Medical History: Past Medical History: No date: Cancer (CMS/HCC) (HCC) Comment: lymphoma No date: Colitis No date: Coronary artery disease No date: Diabetes mellitus ([facility]) No date: Heart murmur No date: Heart valve disease Past Surgical History: Past Surgical History: No date: CARDIAC CATHETERIZATION No date: CARPAL TUNNEL RELE (more content not included)...[facility]10-24-2023 NoteComprehensive Pre Surgical History and Physical ? Name: Vidal Kay : 1945 (Age-78 y.o.) Date of Service: Pt seen/examined on 02/19/2023 Procedure Information Date/Time: 02/28/23 0700 Procedures: TISSUE AORTIC VALVE REPLACEMENT, CORONARY ARTERY BYPASS GRAFT, TRANSESOPHAGEAL ECHOCARDIOGRAM (Chest) CABG X3 ARTERIAL GRAFTS (Chest) Echocardiography transesophageal real-time Location: [facility] Operating Room Surgeons: Eduar Rodríguez MD Chief Complaint: Patient needs a new Aortic valve due to stenosis and has blocked coronary arteries that will need replaced ASSESSMENT/PLAN: Patient is considered intermediate risk for this high risk procedure/surgery () with no reducible risk factors. Based on the above evaluation, the benefits of the planned procedure likely exceed the risks. The patient is medically optimized to proceed with the planned procedure without any further cardiopulmonary testing. 1) Nonrheumatic aortic (valve) stenosis [I35.0] 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] - Managed per surgery 2) Former smoker quit 1979 - 1 pack(s) a day for about 40 years - EKG as below - H&H pending - Yes, 3) CAD - Follows with DR BAIG for cardiology - History of stents No. Patient instructed to continue aspirin uninterrupted as discontinuation of aspirin in the presence of a coronary stent has been associated with perez-operative stent thrombosis, myocardial infarction and . Patient verbalized understanding rationale and instruction. -Patient reports compliance to medication. 4) DM Type 2 - Managed by pcp. - Patient reports compliance to medications - Diabetic medications per PAT protocol. - Patient aware per anesthesia protocol, BS must be below 250 DOS Toxic Drug Monitoring: Drug: bkxielgin lantus glipizide Route: Oral Monitoring: EKG - yes VS - as above Labs: Yes - BMP, A1C, glucose DOS 5)HTN -complaint with antihypertensives - yes Toxic Drug Monitoring: Drug: Altace asa 81mg aspirin continue Route: Oral Monitoring: EKG - yes VS - as above Labs: Yes - -encouraged lifestyle modifications -reports monitoring BP at home - yes BP Readings from Last 3 Encounters: 02/19/23 132/66 6)ulcerative colitis -[facility] -under control Visit Type: Pre-Admission Testing Visit Labs Ordered: YES - PER PAT PROTOCOL Sleep Referral Ordered: NO - NEGATIVE SCREEN PER SLEEP REFERRAL PROTOCOL Total time spent (which include face to face and non face to face encounters) : 30 minutes Toxic drug monitoring/narrow therapeutic index drug monitoring : # Drug name : timothy # Route administered : po # Method of monitoring : bmp A1c PAT Protocol referenced includes: 1. Anesthesia Lab Protocol Orders 2. Perioperative Cardiovascular Risk Assessment 3. Anesthesia Assessment 4. Pain Assessment and Acute Pain Service Consult (if appropriate) 5. Medical Clearance/Consult from Internal Medicine (IMS) 6. Shower/Wash Order (for designated surgeries) 7. LAKE Screen and Sleep Clinic Referral (if appropriate) History Of Present Illness: 78 y.o. male who we are asked to see/evaluate by [facility] for pre-operative evaluation prior to . TISSUE AORTIC VALVE REPLACEMENT, CORONARY ARTERY BYPASS GRAFT, TRANSESOPHAGEAL ECHOCARDIOGRAM (Chest) [58597 CPT(R)] CABG X3 ARTERIAL GRAFTS (Chest) [00491 CPT(R)] Echocardiography transesophageal real-time [72073 CPT(R)] Anesthesia type: General ? This 78-year-old previously healthy and very active gentleman has been followed for aortic stenosis. He has developed severe, symptomatic aortic stenosis with concomitant coronary artery disease. He has a significant lesion within the proximal LAD and a significant lesion within the proximal right coronary artery. The distal right coronary artery is a small target but may be amenable to revascularization. The LAD is a good target We discussed a bioprosthesis with this patient because of his advanced age and the need to avoid long-term anticoagulation. I believe a bioprosthesis would be his best option for. Lowest risk and durable replacement with concomitant coronary bypass surgery. The risk of significant complication or morbidity/mortality is less than 2%. After being provided informed consent, the patient agrees to proceed. Dr Rodríguez office notes 02/19/2023 Heart cath completed 02/13/2023 Denies history of UT,CHF, TIA, CVA Past Medical History: Past Medical History: No date: Cancer (CMS/HCC) ([facility]) Comment: lymphoma No date: Colitis No date: Coronary artery disease No date: Diabetes mellitus ([facility]) No date: Heart murmur No date: Heart valve disease Past Surgical History: Past Surgical History: No date: CARDIAC CATHETERIZATION No date: CARPAL TUNNEL RELE (more content not included)...[facility]10-24-2023 NotePrep for Procedure Order Request: 02/19/23 Surgeon: Dr. Rodríguez Surgery/Procedure: Tissue AVR, CABG & LAURIE Diagnosis: I35.0 & I25.10 Plan Admit: Yes PAT Appointment: 02/19/23 at 11:00 AM Date if yes: Date of Surgery/Procedure: 02/28/23 at 7:00 AM Medication needed held: [x] None [] Other: Medication needed prescribed: [] None [x] Nasal ointment and mouth rinse [] Other: [facility]10-24-2023 History and physical note* Caroline Rogers APRN - CAMPUS REP - 02/19/2023 11:00 AM EDT Images from the original note were not included. Comprehensive Pre Surgical History and Physical ? Name: Vidal Kay : 1945 (Age-78 y.o.) Date of Service: Pt seen/examined on 02/19/2023 Procedure Information Date/Time: 02/28/23 0700 Procedures: TISSUE AORTIC VALVE REPLACEMENT, CORONARY ARTERY BYPASS GRAFT, TRANSESOPHAGEAL ECHOCARDIOGRAM (Chest) CABG X3 ARTERIAL GRAFTS (Chest) Echocardiography transesophageal real-time Location: [facility] Operating Room Surgeons: Eduar Rordíguez MD Chief Complaint: Patient needs a new Aortic valve due to stenosis and has blocked coronary arteries that will need replaced ASSESSMENT/PLAN: Patient is considered intermediate risk for this high risk procedure/surgery () with no reducible risk factors. Based on the above evaluation, the benefits of the planned procedure likely exceed the risks. The patient is medically optimized to proceed with the planned procedure without any further c ardiopulmonary testing. 1) Nonrheumatic aortic (valve) stenosis [I35.0] 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] - Managed per surgery 2) Former smoker quit 1979 - 1 pack(s) a day for about 40 years - EKG as below - H&H pending - Yes, 3) CAD - Follows with DR BAIG for cardiology - History of stents No. Patient instructed to continue aspirin uninterrupted as discontinuation of aspirin in the presence of a coronary stent has been associated with perez-operative stent thrombosis, myocardial infarction and . Patient verbalized understanding rationale and instruction. -Patient reports compliance to medication. 4) DM Type 2 - Managed by pcp. - Patient reports compliance to medications - Diabetic medications per PAT protocol. - Patient aware per anesthesia protocol, BS must be below 250 DOS Toxic Drug Monitoring: Drug: farxiga lantus glipizide Route: Oral Monitoring: EKG - yes VS - as above Labs: Yes - BMP, A1C, glucose DOS 5)HTN -complaint with antihypertensives - yes Toxic Drug Monitoring: Drug: Altace asa 81mg aspirin continue Route: Oral Monitoring: EKG - yes VS - as above Labs: Yes - -encouraged lifestyle modifications -reports monitoring BP at home - yes BP Readings from Last 3 Encounters: 02/19/23 132/66 6)ulcerative colitis -[facility]under control Visit Type: Pre-Admission Testing Visit Labs Ordered: YES - PER PAT PROTOCOL Sleep Referral Ordered: NO - NEGATIVE SCREEN PER SLEEP REFERRAL PROTOCOL Total time spent (which include face to face and non face to face encounters) : 30 minutes Toxic drug monitoring/narrow therapeutic index drug monitoring : # Drug name : timothy # Route administered : po # Method of monitoring : bmp A1c [facility] Protocol referenced includes: 1. Anesthesia Lab Protocol Orders 2. Perioperative Cardiovascular Risk Assessment 3. Anesthesia Assessment 4. Pain Assessment and Acute Pain Service Consult (if appropriate) 5. Medical Clearance/Consult from Internal Medicine (IMS) 6. Shower/Wash Order (for designated surgeries) 7. LAKE Screen and Sleep Clinic Referral (if appropriate) History Of Present Illness: 78 y.o. male who we are asked to see/evaluate by [place] [id number] for pre-operative evaluation prior to . TISSUE AORTIC VALVE REPLACEMENT, CORONARY ARTERY BYPASS GRAFT, TRANSESOPHAGEAL ECHOCARDIOGRAM (Chest) [56180 CPT(R)] CABG X3 ARTERIAL GRAFTS (Chest) [97713 CPT(R)] Echocardiography transesophageal real-time [38606 CPT(R)] Anesthesia type: General ? This 78-year-old previously healthy and very active gentleman has been followed for aortic stenosis. He has developed severe, symptomatic aortic stenosis with concomitant coronary artery disease. He has a significant lesion within the proximal LAD and a significant lesion within the proximal right coronary artery. The distal right coronary artery is a small target but may be amenable to revascularization. The LAD is a good target We discussed a bioprosthesis with this patient because of his advanced age and the need to avoid long-term anticoagulation. I believe a bioprosthesis would be his best option for. Lowest risk and durable replacement with concomitant coronary bypass surgery. The risk of significant complication or morbidity/mortality is less than 2%. After being provided informed consent, the patient agrees to proceed. Dr Rodríguez office notes 02/19/2023 Heart cath completed 02/13/2023 Denies history of UT,CHF, TIA, CVA Past Medical History: Past Medical History: No date: Cancer (CMS/HCC) (HCC) Comment: lymphoma No date: Colitis No date: Coronary artery disease No date: Diabetes mellitus (HCC) No date: Heart murmur No date: Heart valve disease Past Surgical History: Past Surgical History: No date: CARDIAC CATHETERIZATION No date: CARPAL TUNNEL RELEASE No date: COLONOSCOPY Medications Prior to Admission: Prior to Admission medications Medication Sig Start Date End Date Taking? Authorizing Provider ascorbic acid (Vitamin C) 1000 MG tablet Take 1,000 mg by mouth daily. Historical Provider, dapagliflozin (Farxiga) 10 MG Take 10 mg by mouth daily. Historical Provider, glipiZIDE (Glucotrol) 5 MG tablet Take 5 mg by mouth in the morning and 5 mg in the evening. Take before meals. Historical Provider, glucosamine-chondroitin 500-400 MG tablet Take 1 tablet by mouth 3 times daily. Historical Provider, mesalamine (Lialda) 1.2 g EC tablet Take by mouth daily (with breakfast). Do not crush, chew, or split. Historical Provider, Multiple Vitamins-Minerals (multivitamin with minerals) tablet Take 1 tablet by mouth daily. Historical Provider, ramipril (Altace) 5 MG capsule Take 5 mg by mouth daily. Historical Provider, CHRONIC NARCOTIC USE: No Allergies: Patient has no known allergies. If patient has opioid allergy, is it okay to take Acetaminophen: Yes Social History: TOBACCO: reports that he quit smoking about 33 years ago. His smoking use included pipe and cigarettes. He started smoking about 40 years ago. He has a 20.00 pack-year smoking history. His smokeless tobacco use includes chew. ETOH: reports that he does not currently use alcohol. Social History Substance and Sexual Activity Drug Use Not Currently Family History: No family history on file. REVIEW OF SYSTEMS: Review of Systems Constitutional: Negative for activity change, fatigue and fever. HENT: Negative for congestion and sore throat. Eyes: Negative for visual disturbance. Respiratory: Negative. Negative for shortness of breath and wheezing. Cardiovascular: Negative. Negative for chest pain, palpitations and leg swelling. Gastrointestinal: Negative. Negative for abdominal pain, nausea and vomiting. Endocrine: Negative for polyuria. Genitourinary: Negative. Negative for difficulty urinating, dysuria and flank pain. Musculoskeletal: Negative. Negative for back pain, neck pain and neck stiffness. Skin: Negative. Negative for color change. Neurological: Negative for dizziness, weakness and numbness. Psychiatric/Behavioral: Negative for behavioral problems and suicidal ideas. All other systems reviewed and are negative. Physical Exam: Physical Exam Vitals and nursing note reviewed. Constitutional: Appearance: Normal appearance. HENT: Head: Normocephalic. Nose: Nose normal. Eyes: Pupils: Pupils are equal, round, and reactive to light. Cardiovascular: Rate and Rhythm: Normal rate and regular rhythm. Pulses: Normal pulses. Heart sounds: Murmur heard. Pulmonary: Effort: Pulmonary effort is normal. Breath sounds: Normal breath sounds. Abdominal: General: Abdomen is flat. Musculoskeletal: General: Normal range of motion. Right lower leg: No edema. Left lower leg: No edema. Skin: General: Skin is warm. Capillary Refill: Capillary refill takes less than 2 seconds. Neurological: General: No focal deficit present. Mental Status: He is alert. Vitals: Vitals Value Taken Time BP 132/66 02/19/23 0827 Temp 36.0 02/19/23 1144 Pulse 71 02/19/23 0827 Resp 16 02/19/23 1144 SpO2 95 02/19/23 1144 BP Readings from Last 3 Encounters: 02/19/23 132/66 Labs: ordered per protocol No results found for: WBC, HGB, HCT, MCV, PLT No results found for: NA, K, CL, CO2, BUN, CREATININE, GLUCOSE, CALCIUM, PROT, BILIRUBINFL, ALKPHOS, AST, ALT, EGFR, GLOB Sweetie's Simple Cardiac Risk Index: SWEETIE'S SIMPLE CARDIAC RISK SCORE: 2 Interpretation: 0 Points Class I 0.5% 1 Point Class II 1.3% 2 Points Class III 3.6% 3+ Points Class IV 9.1% PAT Pain Score: 0/10 Postop Pain Management Plan (Pain consult ordered?): Pain consult not indicated at this time ? EK02/19/2023 EF65% ECHO and EF:Vidal Kay is a 78 y.o. male referred by Dr. Baig for severe coronary artery bypasssurgery and a aortic valve replacement. Per notes, patient has been experiencing some SOB. Patient had an echo for known aortic stenosis on01/08/23 that showed severe aortic stenosis, and mild (1+) mitral valve insufficiency and mild (1+) tricuspid valve insufficiency. Dr. Baig did a heart cath on 02/13/23 that demonstrated severe disease involving LAD, right coronary artery. METS >4__ Electronically signed by: VINICIO Reynolds CNP Date: 02/19/2023 at 11:45 AM [place] Work Phone: 1(560) 817-503910-24-2023 History and physical note* VINICIO Reynolds CNP - 02/19/2023 11:00 AM EDT Images from the original note were not included. Comprehensive Pre Surgical History and Physical ? Name: Vidal Kay : 1945 (Age-78 y.o.) Date of Service: Pt seen/examined on 02/19/2023 Procedure Information Date/Time: 02/28/23 0700 Procedures: TISSUE AORTIC VALVE REPLACEMENT, CORONARY ARTERY BYPASS GRAFT, TRANSESOPHAGEAL ECHOCARDIOGRAM (Chest) CABG X3 ARTERIAL GRAFTS (Chest) Echocardiography transesophageal real-time Location: [facility] Operating Room Surgeons: Eduar Rodríguez MD Chief Complaint: Patient needs a new Aortic valve due to stenosis and has blocked coronary arteries that will need replaced ASSESSMENT/PLAN: Patient is considered intermediate risk for this high risk procedure/surgery () with no reducible risk factors. Based on the above evaluation, the benefits of the planned procedure likely exceed the risks. The patient is medically optimized to proceed with the planned procedure without any further c ardiopulmonary testing. 1) Nonrheumatic aortic (valve) stenosis [I35.0] 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] - Managed per surgery 2) Former smoker quit 1979 - 1 pack(s) a day for about 40 years - EKG as below - H&H pending - Yes, 3) CAD - Follows with DR BAIG for cardiology - History of stents No. Patient instructed to continue aspirin uninterrupted as discontinuation of aspirin in the presence of a coronary stent has been associated with perez-operative stent thrombosis, myocardial infarction and . Patient verbalized understanding rationale and instruction. -Patient reports compliance to medication. 4) DM Type 2 - Managed by pcp. - Patient reports compliance to medications - Diabetic medications per PAT protocol. - Patient aware per anesthesia protocol, BS must be below 250 DOS Toxic Drug Monitoring: Drug: timothy cortestus glipizide Route: Oral Monitoring: EKG - yes VS - as above Labs: Yes - BMP, A1C, glucose DOS 5)HTN -complaint with antihypertensives - yes Toxic Drug Monitoring: Drug: Altace asa 81mg aspirin continue Route: Oral Monitoring: EKG - yes VS - as above Labs: Yes - -encouraged lifestyle modifications -reports monitoring BP at home - yes BP Readings from Last 3 Encounters: 02/19/23 132/66 6)ulcerative colitis -[facility] control Visit Type: Pre-Admission Testing Visit Labs Ordered: YES - PER PAT PROTOCOL Sleep Referral Ordered: NO - NEGATIVE SCREEN PER SLEEP REFERRAL PROTOCOL Total time spent (which include face to face and non face to face encounters) : 30 minutes Toxic drug monitoring/narrow therapeutic index drug monitoring : # Drug name : timothy # Route administered : po # Method of monitoring : bmp A1c PAT Protocol referenced includes: 1. Anesthesia Lab Protocol Orders 2. Perioperative Cardiovascular Risk Assessment 3. Anesthesia Assessment 4. Pain Assessment and Acute Pain Service Consult (if appropriate) 5. Medical Clearance/Consult from Internal Medicine (IMS) 6. Shower/Wash Order (for designated surgeries) 7. LA[facility] Screen and Sleep Clinic Referral (if appropriate) History Of Present Illness: 78 y.o. male who we are asked to see/evaluate by [place] [id number] for pre-operative evaluation prior to . TISSUE AORTIC VALVE REPLACEMENT, CORONARY ARTERY BYPASS GRAFT, TRANSESOPHAGEAL ECHOCARDIOGRAM (Chest) [72730 CPT(R)] CABG X3 ARTERIAL GRAFTS (Chest) [02751 CPT(R)] Echocardiography transesophageal real-time [42650 CPT(R)] Anesthesia type: General ? This 78-year-old previously healthy and very active gentleman has been followed for aortic stenosis. He has developed severe, symptomatic aortic stenosis with concomitant coronary artery disease. He has a significant lesion within the proximal LAD and a significant lesion within the proximal right coronary artery. The distal right coronary artery is a small target but may be amenable to revascularization. The LAD is a good target We discussed a bioprosthesis with this patient because of his advanced age and the need to avoid long-term anticoagulation. I believe a bioprosthesis would be his best option for. Lowest risk and durable replacement with concomitant coronary bypass surgery. The risk of significant complication or morbidity/mortality is less than 2%. After being provided informed consent, the patient agrees to proceed. Dr Rodríguez office notes 02/19/2023 Heart cath completed 02/13/2023 Denies history of UT,CHF, TIA, CVA Past Medical History: Past Medical History: No date: Cancer (CMS/HCC) ([facility]) Comment: lymphoma No date: Colitis No date: Coronary artery disease No date: Diabetes mellitus ([facility]) No date: Heart murmur No date: Heart valve disease Past Surgical History: Past Surgical History: No date: CARDIAC CATHETERIZATION No date: CARPAL TUNNEL RELEASE No date: COLONOSCOPY Medications Prior to Admission: Prior to Admission medications Medication Sig Start Date End Date Taking? Authorizing Provider ascorbic acid (Vitamin C) 1000 MG tablet Take 1,000 mg by mouth daily. Historical Provider, dapagliflozin (Farxiga) 10 MG Take 10 mg by mouth daily. Historical Provider, glipiZIDE (Glucotrol) 5 MG tablet Take 5 mg by mouth in the morning and 5 mg in the evening. Take before meals. Historical Provider, glucosamine-chondroitin 500-400 MG tablet Take 1 tablet by mouth 3 times daily. Historical Provider, mesalamine (Lialda) 1.2 g EC tablet Take by mouth daily (with breakfast). Do not crush, chew, or split. Historical Provider, Multiple Vitamins-Minerals (multivitamin with minerals) tablet Take 1 tablet by mouth daily. Historical Provider, ramipril (Altace) 5 MG capsule Take 5 mg by mouth daily. Historical Provider, CHRONIC NARCOTIC USE: No Allergies: Patient has no known allergies. If patient has opioid allergy, is it okay to take Acetaminophen: Yes Social History: TOBACCO: reports that he quit smoking about 33 years ago. His smoking use included pipe and cigarettes. He started smoking about 40 years ago. He has a 20.00 pack-year smoking history. His smokeless tobacco use includes chew. ETOH: reports that he does not currently use alcohol. Social History Substance and Sexual Activity Drug Use Not Currently Family History: No family history on file. REVIEW OF SYSTEMS: Review of Systems Constitutional: Negative for activity change, fatigue and fever. HENT: Negative for congestion and sore throat. Eyes: Negative for visual disturbance. Respiratory: Negative. Negative for shortness of breath and wheezing. Cardiovascular: Negative. Negative for chest pain, palpitations and leg swelling. Gastrointestinal: Negative. Negative for abdominal pain, nausea and vomiting. Endocrine: Negative for polyuria. Genitourinary: Negative. Negative for difficulty urinating, dysuria and flank pain. Musculoskeletal: Negative. Negative for back pain, neck pain and neck stiffness. Skin: Negative. Negative for color change. Neurological: Negative for dizziness, weakness and numbness. Psychiatric/Behavioral: Negative for behavioral problems and suicidal ideas. All other systems reviewed and are negative. Physical Exam: Physical Exam Vitals and nursing note reviewed. Constitutional: Appearance: Normal appearance. HENT: Head: Normocephalic. Nose: Nose normal. Eyes: Pupils: Pupils are equal, round, and reactive to light. Cardiovascular: Rate and Rhythm: Normal rate and regular rhythm. Pulses: Normal pulses. Heart sounds: Murmur heard. Pulmonary: Effort: Pulmonary effort is normal. Breath sounds: Normal breath sounds. Abdominal: General: Abdomen is flat. Musculoskeletal: General: Normal range of motion. Right lower leg: No edema. Left lower leg: No edema. Skin: General: Skin is warm. Capillary Refill: Capillary refill takes less than 2 seconds. Neurological: General: No focal deficit present. Mental Status: He is alert. Vitals: Vitals Value Taken Time BP 132/66 02/19/23 0827 Temp 36.0 02/19/23 1144 Pulse 71 02/19/23 0827 Resp 16 02/19/23 1144 SpO2 95 02/19/23 1144 BP Readings from Last 3 Encounters: 02/19/23 132/66 Labs: ordered per protocol No results found for: WBC, HGB, HCT, MCV, PLT No results found for: NA, K, CL, CO2, BUN, CREATININE, GLUCOSE, CALCIUM, PROT, BILIRUBINFL, ALKPHOS, AST, ALT, EGFR, GLOB Sweetie's Simple Cardiac Risk Index: SWEETIE'S SIMPLE CARDIAC RISK SCORE: 2 Interpretation: 0 Points Class I 0.5% 1 Point Class II 1.3% 2 Points Class III 3.6% 3+ Points Class IV 9.1% PAT Pain Score: 0/10 Postop Pain Management Plan (Pain consult ordered?): Pain consult not indicated at this time ? EK02/19/2023 EF65% ECHO and EF:Vidal Kay is a 78 y.o. male referred by Dr. Baig for severe coronary artery bypasssurgery and a aortic valve replacement. Per notes, patient has been experiencing some SOB. Patient had an echo for known aortic stenosis on01/08/23 that showed severe aortic stenosis, and mild (1+) mitral valve insufficiency and mild (1+) tricuspid valve insufficiency. Dr. Baig did a heart cath on 02/13/23 that demonstrated severe disease involving LAD, right coronary artery. METS >4__ Electronically signed by: Caroline Rogers APRN - CAMPUS REP Date: 02/19/2023 at 11:45 AM documented in this [facility]10-24-2023 History of Present illness Narrative* Eduar Rodríguez MD - 02/19/2023 9:00 AM EDT Images from the original note were not included. [facility] CARDIOVASCULAR & THORACIC SURGERY [address] [facility] [address] Dept: [phone] Dept Loc: [phone] Visit type: New Reason for Visit: Aortic stenosis, coronary artery disease-evaluate for surgery. Assessment and plan This 78-year-old previously healthy and very active gentleman has been followed for aortic stenosis. He has developed severe, symptomatic aortic stenosis with concomitant coronary artery disease. He has a significant lesion within the proximal LAD and a significant lesion within the proximal right coronary artery. The distal right coronary artery is a small target but may be amenable to revascularization. The LAD is a good target. We discussed a bioprosthesis with this patient because of his advanced age and the need to avoid long-term anticoagulation. I believe a bioprosthesis would be his best option for. Lowest risk and durable replacement with concomitant coronary bypass surgery. The risk of significant complication or morbidity/mortality is less than 2%. After being provided informed consent, the patient agrees to proceed. History of Present Illness Vidal Kay is a 78 y.o. male referred by Dr. Baig for severe coronary artery bypass surgery reshma aortic valve replacement. Per notes, patient has been experiencing some SOB. Patient had an echo for known aortic stenosis on01/08/23 that showed severe aortic stenosis, and mild (1+) mitral valve insufficiency and mild (1+) tricuspid valve insufficiency. Dr. Baig did a heart cath on 02/13/23 that demonstrated severe disease involving LAD, right coronary artery. Patient is a former smoker. Patient is here today for an evaluation. Past Medical History Past Medical History: Diagnosis Date Coronary artery disease Diabetes mellitus (HCC) Past Surgical History Past Surgical History: Procedure Laterality Date CARPAL TUNNEL RELEASE Family History No family history on file. Social History Allergies Not on File Medications Current Outpatient Medications: ascorbic acid (Vitamin C) 1000 MG tablet, Take 1,000 mg by mouth daily., Disp: , Rfl: dapagliflozin (Farxiga) 10 MG, Take 10 mg by mouth daily., Disp: , Rfl: glipiZIDE (Glucotrol) 5 MG tablet, Take 5 mg by mouth in the morning and 5 mg in the evening. Take before meals., Disp: , Rfl: glucosamine-chondroitin 500-400 MG tablet, Take 1 tablet by mouth 3 times daily., Disp: , Rfl: mesalamine (Lialda) 1.2 g EC tablet, Take by mouth daily (with breakfast). Do not crush, chew, or split., Disp: , Rfl: Multiple Vitamins-Minerals (multivitamin with minerals) tablet, Take 1 tablet by mouth daily., Disp: , Rfl: ramipril (Altace) 5 MG capsule, Take 5 mg by mouth daily., Disp: , Rfl: Review of Systems Review of Systems Constitutional: Positive for fatigue. Respiratory: Positive for shortness of breath (with activity). All other systems reviewed and are negative. Physical Exam Vitals: There were no vitals taken for this visit. Constitutional: General: Not in acute distress. Appearance: Normal appearance. Not toxic-appearing. Ear, nose, mouth: Bilateral external ear and nose normal. Nose: Nose normal. Mouth: Appearance normal, no bleeding, moist mucus membranes Eyes: General: No scleral icterus. No discharge from bilateral eyes Extraocular Movements: Extraocular movements intact. Pupils equal and reactive bilaterally Cardiovascular: Heart: Regular rhythm. JEAN PIERRE c/w yes yes severe to I be happy to Edema: no edema in bilateral lower extremities Pulmonary: Effort: Pulmonary effort is normal. No respiratory distress. Breath sounds: Normal breath sounds. No wheezing. Chest wall: No tenderness. Abdominal: Appearance: Not distended Palpations: There is no abdominal tenderness, no guarding. Musculoskeletal: Bilateral upper and lower extremities: Normal range of motion, no deformity Head: Normocephalic and atraumatic. Neck: Normal range of motion and neck supple. No muscular tenderness. Skin: General: Skin is warm and dry. Coloration: Skin is not jaundiced. Neurological: General: No focal deficit present. Cranial Nerves: No obvious cranial nerve deficit. Psychiatric: Mood and Affect: Mood normal. Thought Content: Thought content normal. Patient has good judgement and insight Mental Status: Alert and oriented to place, person, and time. Labs No results found for: WBC, HGB, PLT, NA, K, CREATININE Imaging Heart cath 02/13/23 ECHO complete 01/08/23 Echo Complete 06/22/22 Patient Care Team: PCP: Dr. Felix Bill Cardiology: Dr. Chase Baig MD Disclaimer INFORMED CONSENT:The nature and purpose of the proposed treatment or procedure have been discussed.The risks and benefits of the proposed treatment or procedures have been reviewed. Alternatives have been reviewed in addition to the risks and benefits of not receiving treatments or undergoing procedures. Pursuant to this discussion, the patient agrees to undergo the proposed treatment or procedure. Captured images seen in this note from are not a substitute for a comprehensive interpretation of the entire data set as reflected by the interpreting physician with regard to radiology, echocardiography, and other diagnostic images. This note may have been dictated using [employer] Practice Edition 2.6 and/or [employer] Voice Recognition Feature. The document was proofread, however unrecognized voice recognition hand suture winder errors may be present. documented in this [facility]10-11-2023 Miscellaneous Notes* Telephone Encounter - Delores Cao RN - 02/06/2023 9:44 AM EDT Met with patient and introduced myself. Patient was given a My Journey binder with chemocare information, office contact information, thermometer, and additional chemotherapy resource booklets. Patient aware this nurse will review on scheduled appointment date. Aviva Cao RN documented in this [facility]10-[facility] History of Present illness Narrative* Leland Nguyen MD - 02/06/2023 9:06 AM EDT (Elements copied from my note dated December 28, 2022, have been reviewed and updated where appropriate, and all reflect current assessment and medical decision making from today's encounter, 2022) HISTORY OF PRESENT ILLNESS: Vidal Kay is a 78 year old male was sick with pneumonia in July/August. Proteinuria was noted subsequently. Has noted an M protein on labs to work up proteinuria. He feels well. 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 Plan weekly rituxan x 4 goal to reduce IgM levels Written and verbal health teaching given to patient, patient verbalizes understanding and agrees with treatment plan. PAST MEDICAL HISTORY Diagnosis Date Anemia, unspecified 03/01/2006 Aortic stenosis, moderate 10/07/2020 BPH without obstruction/lower urinary tract symptoms 07/31/2006 DM type 2, uncontrolled, with neuropathy 10/21/2015 Hemorrhage of gastrointestinal tract, unspecified Hyperlipidemia Hypertension 01/11/2014 Mitral regurgitation 07/03/2011 Personal history of colonic polyps 07/31/2006 Colonoscopy 28 February 2006 Primary osteoarthritis of right knee 01/28/2018 Snoring Ulcerative colitis (HCC) 01/30/2005 PAST SURGICAL HISTORY Procedure Laterality Date COLONOSCOPY FLX DX W/COLLJ SPEC WHEN PFRMD 03/11/1995 Colonoscopy COLONOSCOPY FLX DX W/COLLJ SPEC WHEN PFRMD 07/12/2008 Colonoscopy COLONOSCOPY FLX DX W/COLLJ SPEC WHEN PFRMD 05/16/2015 Colonoscopy COLONOSCOPY FLX DX W/COLLJ SPEC WHEN PFRMD 06/08/2019 Colonoscopy COLONOSCOPY W/BIOPSY SINGLE/MULTIPLE 02/28/06 NEUROPLASTY &/TRANSPOS MEDIAN NRV CARPAL TUNNE 1992 Carpal tunnel decomp, bilateral SIGMOIDOSCOPY FLX DX W/COLLJ SPEC BR/WA IF PFRMD 04/08/09 SIGMOIDOSCOPY FLX DX W/COLLJ SPEC BR/WA IF PFRMD 06/23/2015 Sigmoidoscopy, flexible FAMILY HISTORY Problem Relation Age of Onset Diabetes Mother 55 CAD Coronary Artery Disease Mother Diabetes Father CAD Coronary Artery Disease Father 55 CABG Breast Cancer Sister Breast Cancer Daughter Social History Tobacco Use Smoking status: Former Types: Pipe, Cigarettes Quit date: 04/29/1989 Years since quittin.7 Smokeless tobacco: Current Types: Chew Tobacco comments: 20 years cigs till 1979, pipe till Vaping Use Vaping Use: Never used Substance Use Topics Alcohol use: Never Drug use: No ALLERGIES: ALLERGIES No Known Allergies CURRENT OUTPATIENT MEDICATIONS: blood sugar diagnostic (BLOOD GLUCOSE TEST) test strip TEST BLOOD SUGAR 3 TIMES PER DAY. DX: E11.40. INSULIN DEP: Yes Blood-Glucose Meter,Continuous (DEXCOM G7 HOME HEALTH NURSE LICENSED PRACTICAL) misc Dispense one lifter/driver USE FOR CONTINUOUS GLUCOSE MONITORING. INSULIN USE E11.9 Blood-Glucose Sensor (DEXCOM G7 SENSOR) rick CHANGE sensor every 10 days. USE FOR CONTINUOUS GLUCOSE MONITORING. INSULIN USE E11.9 dapagliflozin propanediol (FARXIGA) 10 mg tablet Take 1 tablet by mouth daily with breakfast. ferrous sulfate 325 mg (65 mg iron) tablet Take 1 tablet by mouth every other day. glipiZIDE (GLUCOTROL XL) 10mg 24 hr tablet Take 1 tablet by mouth daily with breakfast. GLUCOSAMINE CHONDROITIN MAXSTR 500 MG-400 MG CAP Take one(1) tablet daily. insulin glargine (LANTUS SOLOSTAR U-100 INSULIN) 100 unit/mL (3 mL) Inject 15 Units subcutaneously daily at bedtime. insulin needles, DISPOSABLE, (PEN NEEDLE) 31 gauge x 5/16 Use one needle for each dose lancets (ONE TOUCH DELICA) 33 gauge Test blood sugar(s) 4 times daily. Dx: Other DM Code E11.49 Insulin: Yes Mesalamine (LIALDA) 1.2 gram EC tablet Take 2 tablets by mouth once daily. Per Dr. Jeff Jimenez. MULTIVITAMIN TAB Take one(1) tablet daily. OTC PRODUCT Shaklee Iron: Take two tablets by mouth once daily. ramipril (ALTACE) 5 mg capsule Take 1 capsule by mouth once daily. trimethoprim-polymyxin (POLYTRIM) 10,000 unit- 1 mg/mL ophthalmic solution Use 2 Drops in both eyestwice daily. Use for 7 days. (Patient not taking: Reported on 12/19/2022) VITAMIN C 1,000 MG TAB Take one(1) tablet daily. REVIEW OF SYSTEMS: GENERAL: No fever, night sweats, weight loss or malaise. All other reviewed and negative other than HPI. PHYSICAL EXAMINATION: VITAL SIGNS: BP 119/53 Pulse 78 Temp (Src) 98.2 (Temporal) Wt 152 lb (68.9kg) SpO2 98% GENERAL APPEARANCE: Well appearing, in no acute distress, alert and oriented x3, well-hydrated, well nourished. I spent a total of 30 minutes on the date of the service which included preparing to see the patient, [id number] patient care, completing clinical documentation, obtaining and/or reviewing separately obtained history, counseling and educating the patient/family/caregiver, ordering medications, raz ts, or procedures, independently interpreting results (not separately reported), and communicating results to the patient/family/caregiver. Electronically Signed: Leland Nguyen MD February 06, 2023 documented in this encounterSum[facility]10-03-2023 History and physical note Author Chase Baig [facility] January 29, 2023 3:56pm Note Date/Time January 29, 2023 9: 57am [facility] Medical Records Department [address] [place] [address] History & Physical Exam 01/29/23 0953 MR#: [id number] Acct: [id number] Name: VIDAL KAY Rep #:[id number] : 1945 78 From: Chase Baig MD PCP: Dr. Felix Bill MD [place] [facility] [place] [facility] History and Physical Date of Admission: 02/13/23 Vidal Kay is a 78 -year-old white male who presents for a cardiac catheterization. He has a history of valvular heart disease with aortic valve stenosis and mitral valve regurgitation. His most recent echocardiogram from 01/08/2023 demonstrates moderately severe aortic valve stenosis. Pt does acknowledges worsening shortness of breath with minimal exertion. He does sometimes have vague discomfort. He does not have any lightheadedness/dizziness. He does not have any palpitations. Intake Vital Signs See EMR Allergies See EMR Medications See EMR [facility] Medical History Back problem Bone fracture Crohn disease Diabetes type 2, controlled Essential hypertension Heart murmur High cholesterol Mixed hyperlipidemia Non-rheumatic mitral regurgitation Nonrheumatic aortic (valve) stenosis Stomach ulcer Ulcerative colitis Surgical History History of carpal tunnel surgery Family History Mother Diabetes Liver disease CAD (coronary artery disease)Father Diabetes CAD (coronary artery disease) History of coronary artery bypass surgery Social History Smoking Status: Former smoker Smokeless tobacco user: snuff how long ago did patient quit smokin+ years second hand exposure: No alcohol intake: never substance use type: does not use caffeine: Yes Type: coffee Number of servings: 5 ROS Const Const: Negative for fatigue, weakness, headache(s), frequent falls, excessive sweating, weight gain or weight loss Eyes Eyes: Negative for blind spots, loss of peripheral vision, transient loss of vision, blurry vision, change in vision or double vision ENT ENT: Negative for headache(s), dizziness, tinnitus, Nosebleed/epistaxis or balance problems Cardio Chest Pain: Yes Palpitations: No Edema: None Muscle aches with walking: None Resp Respiratory: Positive for SOB with activity; Negative for SOB at rest, SOB orthopnea\SOB lying down or Cough GI GI: Negative nausea, vomiting, heartburn, bloating, vomiting blood/hematemesis, bright, red blood in stools or black,tarry stools : Negative for hematuria Musc Musc: Negative for muscle aches/ myalgia, muscle weakness, joint pain or balanceproblems Skin Skin: Negative rash or wounds Neuro Neuro: Negative for dizziness, lightheadedness, near syncope, syncope, orthostatic symptoms, frequent falls, headache(s), weakness, confusion, memory loss, restless legs, blurry vision or double vision [place]on Hematologic/Lymphatic: Negative for easy bleeding or easy bruising Endo Endo: Negative for fatigue, cold intolerance, heat intolerance or excessive sweating Psych Psych: Negative for anxiety or depression Allergy Allergy/Immunology: Negative for rash Cardiology Exam Const Appearance: cooperative, healthy appearing, comfortable, no acute distress, welldeveloped and well groomed Nutritional Appearance: overweight Orientation: alert, awake and oriented x3 Head Head: normal to inspection, normocephalic and atraumatic Ears: hearing grossly normal bilaterally Nose: external nose normal Face and Sinus: face symmetric Eyes Eyelids: eyelids normal Conjunctivae: conjunctivae normal Pupils: PERRL EOM: EOM intact bilaterally Neck Neck: normal visual inspection and full ROM Carotids: normal carotid upstroke Chest Chest inspection: normal inspection of the chest, symmetric chest movement and normal respiratory effort Auscultation: Bilateral: Clear to Auscultation Cardio Palpation: normal PMI Rate: regular rate Rhythm: regular rhythm Heart sounds: S1 normal and S2 normal Murmur: Grade 3/6, loud, harsh, crescendo, LLSB, LVOT, sternal notch and radiates to carotids GI GI: normal to inspection, soft and bowel sounds present Neuro General: patient alert, patient awake, patient oriented x3 and moves all extremities Skin Skin: no rashes or lesions noted Extremities Pulses: Normal: Right Radial Pulse and Left Radial Pulse Lower Extremity Edema: None: Bilateral Psych Psychological: normal affect Supplemental Info Supplemental Information Echocardiogram 01/08/2023: Interpretation Summary Normal LV size. Left ventricular systolic function is normal. The estimated ejection fraction is 60 %. Stage 1 diastolic dysfunction. Mean aortic valve gradient 37 mmHg. Moderate focal aortic valve calcification. Peak aortic valve gradient 60 mmHg. Moderately Severe Compared to previous his is worse. Echocardiogram: 06/20/2021 Interpretation Summary Left ventricular systolic function is normal. The estimated ejection fraction is 65 %. Mild (1+) mitral valve insufficiency. Trivial tricuspid valve insufficiency. Moderate aortic stenosis. Unable to estimate RV systolic pressure due to insufficient tricuspid regurgitant envelope. No evidence for diastolic dysfunction. Echocardiogram 06/22/2022: Left ventricular systolic function is normal. The estimated ejection fraction is 65 %. Mild (1+) mitral valve insufficiency. Trivial tricuspid valve insufficiency. Moderate aortic stenosis. Trivial aortic valve insufficiency. Right ventricular systolic pressure estimated to be 28 mmHg. No evidence for diastolic dysfunction. ? Assessment and Plan Assessment and Plan (1) Nonrheumatic aortic (valve) stenosis: Status: Acute Comment: Moderate per ECHO 06/08/21 Plan: Patient acknowledges worsening shortness of breath with minimal exertion, and chest discomfort. His most recent echocardiogram from 01/08/2023 demonstrated moderately severe aortic valve stenosis. Would like to proceed with a left cardiac catheterization to further assess this. Depending on results, further recommendations will be made. 01/29/23 1556 <Electronically signed by Chase Baig MD> Cosigner Signature (if applicable): 01/29/23 1001 <Electronically signed by Lia GRIFFITH> CC: NACHO Mcknight; Dr. Chase Baig MD; Dr. Felix Bill MD~ Signed [facility] Work Phone: 1(239) 854-287109-26-2023 History of Present illness Narrative* Shira Cornelius, RT(R) - 01/22/2023 9:20 AM EDT Radiology Service Progress Note DATE OF SERVICE: January 22, 2023 TIME: 1:58 PM PATIENT IDENTITY VERIFICATION COMPLETED USING TWO (2) STANDARD IDENTIFIERS: Name and Date of confirmed by patient verbally. FALL SCREENING: Has the patient had 2 falls in the last year or 1 fall with injury or currently using an Ambulatory Assistive Device (Walker, Cane, Wheelchair, Crutches, etc.)? No PATIENT GENDER DATA: Male PATIENT RELEVANT IMPLANT DATA REVIEWED: Yes ALLERGIES: Reviewed and unchanged CONTRAST ALLERGY: NO. EXAM: CT -CONTRAST INDUCED NEPHROPATHY RISK FACTORS: Patient age > 60 years CREATININE: Creatinine Date Value Ref Range Status 01/22/2023 0.77 0.73 - 1.22 mg/dL Final 12/11/2022 0.97 0.73 - 1.22 mg/dL Final 10/08/2022 0.97 0.73 - 1.22 mg/dL Final Estimated Glomerular Filtration Rate Date Value Ref Range Status 01/22/2023 92 >=60 mL/min/1.73m Final Comment: Estimated Glomerular Filtration Rate (eGFR) is calculated using the 2020 CKD-EPI creatinine equation. This equation utilizes serum creatinine, sex, and age as parameters. The creatinine assay has traceable calibration to isotope dilution- mass spectrometry. Refer to KDIGO guidelines for clinical interpretation. In patients with unstable renal function, e.g. those with acute kidney injury, the eGFRmay not accurately reflect actual GFR. eGFR- Date Value Ref Range Status 06/09/2021 >60 Final P.O.C.T. RESULTS: POC done: Yes, See Lab Tab January 22, 2023 TREATMENT: N/A PERIPHERAL IV DATA: Ambulatory: A peripheral IV was started in the Left antecubital site with a Angio cath: 22 gauge. RADIOLOGY DEPARTMENT: CT; Exam(s) Completed: Chest Abdomen Pelvis SIGNATURE: RT Ana(R) PATIENT NAME: Vidal Kay DATE: January 22, 2023 TIME: 1:58 PM documented in this encounterSum[facility] Health09-13-2023 Miscellaneous Notes* Telephone Encounter - Lise Richter APRN.CNP - 01/09/2023 10:01 AM EDT Patient was previously following more 'keto' diet. Reported fatigue, weakness. We discussed HEALTHY carb addition to use at least 30-50 grams of HIGH FIBER, COMPLEX CARBS per meal. These are vegetables, fruits (berries, etc) good grain products such as whole wheat or beans/etc. NO PROCESSED CARBS I would like for them to see either DM education OR they can see NUTRITION which may be more beneficial given they have dietary issues. CONSULT TO NUTRITION placed for patient. re: DEXCOM reading - as this is measuring blood sugar continuously they will always see a rise witheating. What they need to look at is what the blood sugar is TWO HOURS after eating. Goal at that time is for BG to be less than 180 No sooner as this Is too close to meal. * Telephone Encounter - Yary Jackson - 01/09/2023 9:40 AM EDT Patient missed appointment due to not being checked in and sitting in incorrect waiting room. He and his have noticed with the dexcom that when he takes in 50g of carbs as discussed in prior office visit that his readings rise into the 300s. They would like advice on this matter. They are leaving on vacation tomorrow. A my chart message is preferred. 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 I will order CT scans and schedule bone marrow biopsy to be done at patient's earliest convenience. Leland Nguyen MD. January 07, 2023 * Telephone Encounter - Cori Garcia LPN - 01/07/2023 8:39 AM EDT Will ask Dr Nguyen. Cori Garcia LPN * Telephone Encounter - Haily Cardozo - 01/07/2023 8:15 AM EDT Pt's calling requesting instruction on next steps/ when or if the provider will want to see pt. No instructions on pt's avs. Pt's states that they are leaving for a trip on thrusday the and wont be back till the . Where they are going they will have no ui developer. Please advise on follow up Thank you! documented in this encounterSumma Health08-31-2023 Miscellaneous Notes* Telephone Encounter - Jennifer Nath - 12/27/2022 1:43 PM EDT PT SCHEDULED FOR 12/28 JENNIFER * Telephone Encounter - Nancy Farooq LPN - 12/22/2022 9:34 AM EDT Patient notified PSS will be contacting him to schedule consult. Nancy Farooq LPN * Telephone Encounter - Nancy Farooq LPN - 12/22/2022 9:31 AM EDT ----- Message from Felix Bill MD sent at 12/22/2022 9:00 AM EDT ----- Result(s) viewed by patient: Yes. See comments. Hematology consult recommended. documented in this encounterSumma Health08-30-2023 Miscellaneous Notes* Telephone Encounter - Brittni Morataya MA - 12/26/2022 9:26 AM EDT Printed PIERO notes for Director Project Management. Brittni Morataya MA documented in this encounterSumma Health08-28-2023 History of Present illness Narrative* Marlene Moya RDMS - 12/24/2022 10:45 AM EDT Radiology Service Progress Note PATIENT NAME: Vidal Kay DATE OF SERVICE: December 24, 2022 TIME: 12:02 PM PATIENT IDENTITY VERIFICATION COMPLETED USING TWO (2) IDENTIFIERS: Name and Date of confirmedby patient verbally. FALL SCREENING: Has the patient had 2 falls in the last year or 1 fall with injury or currently using an Ambulatory Assistive Device (Walker, Cane, Wheelchair, Crutches, etc.)? No PATIENT GENDER DATA: Male PATIENT RELEVANT IMPLANT DATA REVIEWED: Not Applicable RADIOLOGY DEPARTMENT: Ultrasound PERIPHERAL IV DATA: Not applicable SIGNED BY: Marlene Moya RDMS RVT December 24, 2022 12:02 PM documented in this encounterSumma Health08-23-2023 History of Present illness Narrative* Lise Richter, [facility] - 12/19/2022 10:15 AM EDT NEW CONSULT OFFICE PROGRESS NOTE Reason for Consultation: DM Type 2 Referring Physician: SELF My final recommendations will be communicated back to the requesting physician by way of shared Medical record or letter via US mail. HISTORY OF PRESENT ILLNESS; Vidal Kay is a 77 year old MALE is presenting as a new patient to me regarding DM Type 2. He was initially diagnosed with diabetes in 30+ Sts has been losing weight - not intentionally Appetite is 'too good' PCP wanted 30 grams per meal for patient because his A1C was so high Had 'virus' was very ill for 6 weeks Eye infection - never tested for COVID Had cough, 'very ill' He does have a family history of diabetes mellitus in his Mother, Father, and Siblings. The patient has no known microvascular complications of diabetes. Vidal has no know macrovascular complications of diabetes.. DM Education No Knows how to carb count No - is counting carbs DIETARY HISTORY: - is counting carbs, prepping foods (August 2022) Breakfast: banana, oatmeal w 2 tbsp raisins water 9 coffee) Lunch sandwich, salami or other deli meat and vegetables Dinner venison, salad, carrots and instant potatoes and 2 oatmeal cookies Snacks granola bar (high protein, 16-18 carbs) 1-2 between meals at night will have cottage cheese and sugar free fruit cup[ Drinks water, coffee, coke zero, ice teac Exercise: didi alanis 15 minutes, weights CURRENT DM MEDS FARXIGA 10 mg 1 tab daily GLIPIZIDE 10 mg 1 tab daily LANTUS 15 units daily SMBG Type of Monitor: Other Frequency of Monitorin times a day BG Values: Running 100-300 Values over past week: Highest ; Lowest Hypoglycemia: no Diet: Low carbohydrate Exercise: alanis, very inch DM REVIEW OF SYSTEMS Last Eye Exam : yearly Last Podiatry Exam: Cardiorespiratory: negative, denies chest pain, pressure Claudication: no Dyslipidemia: No High Blood Pressure: No CURRENT LABS Component Latest Ref Rng & Units 02/27/2022 06/08/2022 12/11/2022 Glucose 74 - 99 mg/dL 109 (H) BUN 9 - 24 mg/dL 21 Creatinine 0.73 - 1.22 mg/dL 0.97 Sodium 136 - 144 mmol/L 135 (L) Potassium 3.7 - 5.1 mmol/L 5.0 Chloride 97 - 105 mmol/L 99 CO2 22 - 30 mmol/L 24 Anion Gap 9 - 18 mmol/L 12 eGFR >=60 mL/min/1.73m 80 Cholesterol, Total <200 mg/dL 157 Triglyceride <150 mg/dL 47 HDL Cholesterol >39 mg/dL 66 Non HDL Cholesterol <130 mg/dL 91 Fasting Time hrs 12 VLDL Cholesterol <30 mg/dL 9 TC:HDL Ratio <5.10 2.38 LDL Cholesterol <100 mg/dL 82 LDL:HDL Ratio <2.54 1.24 Creatinine, Ur Random (UCRR) 20.0 - 300.0 mg/dL 57.1 Albumin, Urine Random mg/L 129.7 Albumin/Creat Ratio <30 mg/g 227 (H) Hemoglobin A1C 4.3 - 5.6 % 7.0 (H) 7.3 (H) 8.0 (H) Estimated Average Glucose mg/dL 154 163 183 PAST MEDICAL HISTORY Diagnosis Date Anemia, unspecified 03/01/2006 Aortic stenosis, moderate 10/07/2020 BPH without obstruction/lower urinary tract symptoms 07/31/2006 DM type 2, uncontrolled, with neuropathy 10/21/2015 Hemorrhage of gastrointestinal tract, unspecified Hyperlipidemia Hypertension 01/11/2014 Mitral regurgitation 07/03/2011 Personal history of colonic polyps 07/31/2006 Colonoscopy 28 February 2006 Primary osteoarthritis of right knee 01/28/2018 Snoring Ulcerative colitis (HCC) 01/30/2005 PAST SURGICAL HISTORY Procedure Laterality Date COLONOSCOPY FLX DX W/COLLJ SPEC WHEN PFRMD 03/11/1995 Colonoscopy COLONOSCOPY FLX DX W/COLLJ SPEC WHEN PFRMD 07/12/2008 Colonoscopy COLONOSCOPY FLX DX W/COLLJ SPEC WHEN PFRMD 05/16/2015 Colonoscopy COLONOSCOPY FLX DX W/COLLJ SPEC WHEN PFRMD 06/08/2019 Colonoscopy COLONOSCOPY W/BIOPSY SINGLE/MULTIPLE 02/28/06 NEUROPLASTY &/TRANSPOS MEDIAN NRV CARPAL TUNNE 1992 Carpal tunnel decomp, bilateral SIGMOIDOSCOPY FLX DX W/COLLJ SPEC BR/WA IF PFRMD 04/08/09 SIGMOIDOSCOPY FLX DX W/COLLJ SPEC BR/WA IF PFRMD 06/23/2015 Sigmoidoscopy, flexible FAMILY HISTORY Problem Relation Age of Onset Diabetes Mother 55 CAD Coronary Artery Disease Mother Diabetes Father CAD Coronary Artery Disease Father 55 CABG Breast Cancer Sister Breast Cancer Daughter Social History Tobacco Use Smoking status: Former Types: Pipe Quit date: 04/29/1989 Years since quittin.6 Smokeless tobacco: Current Types: Chew Tobacco comments: 20 years cigs till 1979, pipe till Vaping Use Vaping Use: Never used Substance Use Topics Alcohol use: Never Drug use: No Current Outpatient Medications Medication Sig dapagliflozin propanediol (FARXIGA) 10 mg tablet Take 1 tablet by mouth daily with breakfast. blood sugar diagnostic (BLOOD GLUCOSE TEST) test strip TEST BLOOD SUGAR 3 TIMES PER DAY. DX: E11.40. INSULIN DEP: Yes glipiZIDE (GLUCOTROL XL) 10mg 24 hr tablet Take 1 tablet by mouth daily with breakfast. ferrous sulfate 325 mg (65 mg iron) tablet Take 1 tablet by mouth every other day. trimethoprim-polymyxin (POLYTRIM) 10,000 unit- 1 mg/mL ophthalmic solution Use 2 Drops in both eyestwice daily. Use for 7 days. (Patient not taking: Reported on 12/18/2022) insulin glargine (LANTUS SOLOSTAR U-100 INSULIN) 100 unit/mL (3 mL) Inject 15 Units subcutaneously daily at bedtime. insulin needles, DISPOSABLE, (PEN NEEDLE) 31 gauge x 516 Use one needle for each dose ramipril (ALTACE) 5 mg capsule Take 1 capsule by mouth once daily. lancets (ONE TOUCH DELICA) 33 gauge Test blood sugar(s) 4 times daily. Dx: Other DM Code E11.49 Insulin: Yes Mesalamine (LIALDA) 1.2 gram EC tablet Take 2 tablets by mouth once daily. Per Dr. Aguilar Friend. VITAMIN C 1,000 MG TAB Take one(1) tablet daily. GLUCOSAMINE CHONDROITIN MAXSTR 500 MG-400 MG CAP Take one(1) tablet daily. MULTIVITAMIN TAB Take one(1) tablet daily. No current facility-administered medications for this visit. ALLERGIES No Known Allergies REVIEW OF SYSTEMS - POSITIVES IN BOLD GENERAL:No weight loss, malaise or fevers HEENT:Negative for frequent or significant headaches, No changes in hearing or vision, no nose bleeds or other nasal problems NECK:Negative for lumps, goiter, pain and significant neck swelling RESPIRATORY: Negative for cough, hemoptysis, wheezing, COPD, dyspnea or shortness of breath CARDIOVASCULAR: Negative for chest pain, leg swelling, hypertension, CHF or palpitations PHYSICAL EXAMINATION: BP 142/62 Pulse 73 Wt 65.8 kg (145 lb) SpO2 98% BMI 23.58 kg/m General appearance: Well appearing, alert, in no acute distress, well-hydrated, well nourished. Skin: Skin color, texture, turgor normal, no suspicious rashes or lesions Head: Normocephalic, no masses, lesions, tenderness or abnormalities Eyes: DIEGO Neck: thyroid symmetric to inspection Acanthosis: none noted Extremities: Edema: none Neuro: Negative., Oriented X 3 ASSESSMENT: (E11.8) Type II diabetes mellitus with manifestations (HCC) (primary encounter diagnosis) Comment: patient very ill in September, Recommend that we do repeat A1C prior to getting more aggressive with A1C control in a 77 year old male. Blood sugar goals 100-200 with average of 150 BG Carbs to 40-60 grams high fiber, complex carbs per meal Will f/u in February 2023. RECOMMEND CGM DEXCOM G7, will have DM educator start for patient today Recommended diet: Low carbohydrate and Low saturated fat, low simple sugar, high fiber diet Exercise minimally 150 minutes per week, increase as tolerated. Adequate hydration - 1/2 body wgt in oz of water daily, unless fluid restriction applies. I instructed the patient to monitor blood sugars 4 times per day If blood sugars are persistently high or low, to call our office. Patient to continue to follow up with his PCP and with other consultants regarding his other medical problems. Plan: COMP METABOLIC PANEL, LIPID PANEL, NONFASTING, ALBUMIN/CREAT RATIO RND UR, HGB A1C Lise Richter CNP documented in this encounterSumma Health08-22-2023 History of Present illness Narrative* Felix Bill MD - 12/18/2022 10:14 AM EDT This note was created using [employer]. Subjective Vidal Kay is a 77 year old male was here with spouse. They were following a low carb diet forabout one year now, and weight was steadily declining. However, diabetes was labile and not controlled. He recovered from pneumonia recently. He was scheduled to see cardiology today. His colonoscopy wascurrent and not due till 2024. Review of Systems Constitutional: Positive for unexpected weight change. Negative for activity change, appetite change, chills, fatigue and fever. HENT: Negative for trouble swallowing. Respiratory: Negative for cough, chest tightness, shortness of breath and wheezing. Cardiovascular: Negative for chest pain and leg swelling. Gastrointestinal: Negative for abdominal pain, blood in stool, constipation, diarrhea, nausea and vomiting. Genitourinary: Negative for difficulty urinating and dysuria. ACTIVE PROBLEM LIST Ulcerative Colitis (Hcc) Personal History of Tobacco Use, Presenting Hazards to Health Anemia, Unspecified Personal history of colonic polyps Mitral Regurgitation Hypertension Hyperlipidemia Primary Osteoarthritis of Right Knee Aortic Stenosis, Moderate Diabetes Mellitus Type 2 With Neurological Manifestations (Hcc) Other Proteinuria Hypoalbuminemia Current Outpatient Medications Medication Sig dapagliflozin propanediol (FARXIGA) 10 mg tablet Take 1 tablet by mouth daily with breakfast. blood sugar diagnostic (BLOOD GLUCOSE TEST) test strip TEST BLOOD SUGAR 3 TIMES PER DAY. DX: E11.40. INSULIN DEP: Yes glipiZIDE (GLUCOTROL XL) 10mg 24 hr tablet Take 1 tablet by mouth daily with breakfast. ferrous sulfate 325 mg (65 mg iron) tablet Take 1 tablet by mouth every other day. insulin glargine (LANTUS SOLOSTAR U-100 INSULIN) 100 unit/mL (3 mL) Inject 15 Units subcutaneously daily at bedtime. insulin needles, DISPOSABLE, (PEN NEEDLE) 31 gauge x 5/16 Use one needle for each dose ramipril (ALTACE) 5 mg capsule Take 1 capsule by mouth once daily. lancets (ONE TOUCH DELICA) 33 gauge Test blood sugar(s) 4 times daily. Dx: Other DM Code E11.49 Insulin: Yes Mesalamine (LIALDA) 1.2 gram EC tablet Take 2 tablets by mouth once daily. Per Dr. Aguilar Friend. VITAMIN C 1,000 MG TAB Take one(1) tablet daily. GLUCOSAMINE CHONDROITIN MAXSTR 500 MG-400 MG CAP Take one(1) tablet daily. MULTIVITAMIN TAB Take one(1) tablet daily. trimethoprim-polymyxin (POLYTRIM) 10,000 unit- 1 mg/mL ophthalmic solution Use 2 Drops in both eyestwice daily. Use for 7 days. (Patient not taking: Reported on 12/18/2022) No current facility-administered medications for this visit. Objective BP 114/50 (BP Site: Left Arm, BP Position: Sitting, BP Cuff Size: Large Adult) Pulse 76 Resp 16 Ht 167 cm (5' 5.75) Wt 64.9 kg (143 lb) BMI 23.26 kg/m Physical Exam Constitutional: General: He is not in acute distress. Appearance: He is not ill-appearing. HENT: Head: Normocephalic. Eyes: General: No scleral icterus. Conjunctiva/sclera: Conjunctivae normal. Cardiovascular: Rate and Rhythm: Normal rate and regular rhythm. Heart sounds: Murmur heard. Systolic murmur is present with a grade of 2/6. Pulmonary: Effort: No respiratory distress. Breath sounds: Normal breath sounds. No wheezing or rales. Abdominal: General: Abdomen is flat. Bowel sounds are normal. Palpations: Abdomen is soft. There is no mass. Tenderness: There is no abdominal tenderness. Hernia: No hernia is present. Musculoskeletal: General: No tenderness. Right lower leg: No edema. Left lower leg: No edema. Lymphadenopathy: Cervical: No cervical adenopathy. Skin: Findings: No rash. Neurological: General: No focal deficit present. Mental Status: He is alert. Gait: Gait normal. Component Latest Ref Rng & Units 12/11/2022 WBC 3.70 - 11.00 k/uL 8.34 RBC 4.20 - 6.00 m/uL 4.20 Hemoglobin 13.0 - 17.0 g/dL 10.7 (L) Hematocrit 39.0 - 51.0 % 34.2 (L) MCV 80.0 - 100.0 fL 81.4 MCH 26.0 - 34.0 pg 25.5 (L) MCHC 30.5 - 36.0 g/dL 31.3 RDW-CV 11.5 - 15.0 % 14.9 Platelet Count 150 - 400 k/uL 390 MPV 9.0 - 12.7 fL 9.3 Neut% % 65.2 Abs Neut (ANC) 1.45 - 7.50 k/uL 5.44 Lymph% % 20.6 Abs Lymph 1.00 - 4.00 k/uL 1.72 Anson% % 11.3 Abs Anson <0.87 k/uL 0.94 (H) Eosin% % 1.7 Abs Eosin <0.46 k/uL 0.14 Baso% % 0.7 Abs Baso <0.11 k/uL 0.06 Immature Gran % % 0.5 IMMATURE GRANS (ABS) <0.10 k/uL 0.04 NRBC /100 WBC 0.0 Absolute nRBC <0.01 k/uL <0.01 DTYPE Auto Protein, Total 6.3 - 8.0 g/dL 8.6 (H) Albumin 3.9 - 4.9 g/dL 3.6 (L) Calcium 8.5 - 10.2 mg/dL 9.7 Bilirubin, Total 0.2 - 1.3 mg/dL 0.2 Alkaline Phosphatase 38 - 113 U/L 109 AST 14 - 40 U/L 15 ALT 10 - 54 U/L 16 Glucose 74 - 99 mg/dL 109 (H) BUN 9 - 24 mg/dL 21 Creatinine 0.73 - 1.22 mg/dL 0.97 Sodium 136 - 144 mmol/L 135 (L) Potassium 3.7 - 5.1 mmol/L 5.0 Chloride 97 - 105 mmol/L 99 CO2 22 - 30 mmol/L 24 Anion Gap 9 - 18 mmol/L 12 eGFR >=60 mL/min/1.73m 80 Cholesterol, Total <200 mg/dL 157 Triglyceride <150 mg/dL 47 HDL Cholesterol >39 mg/dL 66 Non HDL Cholesterol <130 mg/dL 91 Fasting Time hrs 12 VLDL Cholesterol <30 mg/dL 9 TC:HDL Ratio <5.10 2.38 LDL Cholesterol <100 mg/dL 82 LDL:HDL Ratio <2.54 1.24 Creatinine, Ur Random (UCRR) 20.0 - 300.0 mg/dL 57.1 Albumin, Urine Random mg/L 129.7 Albumin/Creat Ratio <30 mg/g 227 (H) Iron 41 - 186 ug/dL 27 (L) TIBC 232 - 386 ug/dL 201 (L) Transferrin Saturation 15.0 - 57.0 % 13.4 (L) Hemoglobin A1C 4.3 - 5.6 % 8.0 (H) Estimated Average Glucose mg/dL 183 Ferritin 30.3 - 565.7 ng/mL 186.0 Assessment and Plan 1. Medicare annual wellness visit, subsequent - ICD9: V70.0, ICD10: Z00.00 (primary diagnosis) See wellness note. 2. Anemia, unspecified type - ICD9: 285.9, ICD10: D64.9 More consistent with chronic disease anemia. Consider hematology. - PROTEIN ELECTROPHORESIS SERUM W/INTERP - PROTEIN ELECT RND UR W/INTERP 3. Diabetes mellitus type 2 with neurological manifestations (HCC) - ICD9: 250.60, ICD10: E11.49 - Worsening control - Continue current medications - CONSULT TO ENDOCRINOLOGY 4. Hyperlipidemia, unspecified hyperlipidemia type - ICD9: 272.4, ICD10: E78.5 - Controlled - Continue current medications 5. Primary hypertension - ICD9: 401.9, ICD10: I10 - Controlled - Continue current medications 6. Aortic stenosis, moderate - ICD9: 424.1, ICD10: I35.0 Monitored by cardiology. 7. Other proteinuria - ICD9: 791.0, ICD10: R80.8 Monitor. Consider nephrology. - US KIDNEY/BLADDER - PROTEIN ELECTROPHORESIS SERUM W/INTERP - PROTEIN ELECT RND UR W/INTERP 8. Hypoalbuminemia - ICD9: 273.8, ICD10: E88.09 PC malnutrition? Protein loss? 9. Ulcerative pancolitis without complication (HCC) - ICD9: 556.6, ICD10: K51.00 IFOBT negative. Continue current treatment. 10. Abnormal weight loss - ICD9: 783.21, ICD10: R63.4 Monitor more closely. Felix Bill MD * Felix Bill MD - 12/18/2022 10:03 AM EDT Vidal Kay is a 77 year old male here for a Medicare wellness visit. Health Risk Assessment In general, health is: Good Concerns with balance:Not at all Concerns with teeth or dentures:Not at all Concerns with sexual function:Not at all Wiggins anxious, stressed, angry, irritable, lonely, isolated, or had thoughts of hurting themself: Several days Has little interest or pleasure in doing things: Not at all Bothered by feeling down, depressed, or hopeless: Several days Needs help with grocery shopping, cooking, housework, bathing, grooming, dressing, eating, sitting or standing, walking, using the toilet, handling finances, taking medications, using the telephone, or driving: No Following safety precautions in the home environment and vehicle: removed throw rugs from floors, installed grab bars in the bathroom, handrails in stairwells, having adequate lighting, wearing seatbelt at all times?: Yes Smokes cigarettes, vapes, or chew tobacco: Yes, but I'm not ready to quit Eats healthy foods including fruits, vegetables, whole grains, and fiber-rich foods: Nearly every day Number of days per week engages in exercise: 5 days Average alcohol consumption: Never Current Providers Specialists: I have reviewed specialist-related care of the patient in the medical record. Current care team: Patient Care Team: Felix Bill MD as PCP - General (Internal Medicine) Outside specialists seen: [facility]. Gita Marks, optometry, [facility]. Medical/Family history review Reviewed and updated problem list, medical/surgical/family/social history, medications, and allergies. Opioid use review Patient is not currently using opioids. Depression screening Depression Screening PHQ-2 Score PHQ-9 Score 09/14/2020 0 1 Depression screening tool completed and reviewed. Based on score and interview, patient is not at risk for depression. Screening tool discussed with patient, and I recommended no further interventionat this time. Cognitive screening Mini Cog Score: 4 Functional Observation Was the patient's timed Up & Go test unsteady or ? 12 seconds? No Advance Care Planning End of Life planning discussed, including patient's advanced directive wishes: Yes Measurements BP 114/50 Pulse 76 Resp 16 Ht 5' 5.75 (1.67m) Wt 143 lb (64.9kg) BMI 23.26 kg/(m^2). Visual acuity (required for Welcome to Medicare): follows with optometry/ophthalmology and Right: 20/50 Left: 20/ 5050 Both: 20/50 Hearing Evaluation: some loss. 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 * Telephone Encounter - [place] Alicja Landon - 11/26/2022 8:23 AM EDT Patient has been identified by name and date of : Yes Requested Prescriptions Pending Prescriptions Disp Refills dapagliflozin propanediol (FARXIGA) 10 mg tablet 90 tablet 3 Sig: Take 1 tablet by mouth daily with breakfast. RX INSTRUCTIONS: Just used up last refill so calling ahead since he uses the mail order. Patient aware RX escripted to mail away pharmacy. No need to notify patient. Alicja Landon documented in this encounterSumma Health07-19-2023 Miscellaneous Notes* Telephone Encounter - Sanjuanita Diego LPN - 11/14/2022 9:12 AM EDT Patient has been identified by name and date of : Yes, Provider Dr. Bill Date 11/14/22 Time 9:12 am Patient phones for refill(s): Requested Prescriptions Pending Prescriptions Disp Refills blood sugar diagnostic (BLOOD GLUCOSE TEST) test strip 300 Strip 3 Sig: TEST BLOOD SUGAR 3 TIMES PER DAY. DX: E11.40. INSULIN DEP: Yes Date of last office visit in primary care: 10/12/22 next apt 12/18/22 Last 2 Encounter Wt Readings: Date: Wt: 10/12/2022 67.6 kg (149 lb) 10/08/2022 68 kg (150 lb) Previous labs/tests for medication: Diabetes: Hemoglobin A1C (%) Date Value 06/08/2022 7.3 02/27/2022 7.0 06/09/2021 8.9 03/09/2021 8.4 Thank you. Sanjuanita CHOPRA * Telephone Encounter - Liliya Wellington - 11/14/2022 9:07 AM EDT Patient has been identified by name and date of : Yes Last office visit in this department: 10/12/2022 RX INSTRUCTIONS: Patient aware RX will be sent to pharmacy. No need to notify patient. Patient phones requesting refills as follows: Requested Prescriptions Pending Prescriptions Disp Refills blood sugar diagnostic (BLOOD GLUCOSE TEST) test strip 300 Strip 3 Sig: TEST BLOOD SUGAR 3 TIMES PER DAY. DX: E11.40. INSULIN DEP: Yes Please review and advise. Liliya Wellington documented in this encounterSumma Health07-03-2023 Miscellaneous Notes* Telephone Encounter - Chidi Roper Ma - 10/29/2022 4:14 PM EDT Patient notified, verbalized understanding. * Telephone Encounter - Lynn Hein APRN.CNP - 10/29/2022 4:11 PM EDT Please let the patient know the dose was changed to 10 mg tablet, take only one a day with breakfast Lynn Hein APRN.CNP * Telephone Encounter - Chidi Roper Ma - 10/29/2022 3:47 PM EDT PIERO: 10/12/2022 Last refill: 03/06/2022 Med update * Telephone Encounter - Isabell Stephenson - 10/29/2022 3:30 PM EDT Patient has been identified by name and date of : Yes Last office visit in this department: 10/12/2022 RX INSTRUCTIONS: Patient aware RX will be sent to pharmacy. No need to notify patient. Patient phones requesting refills as follows: Requested Prescriptions Pending Prescriptions Disp Refills glipiZIDE XL (GLUCOTROL XL) 5 mg 24 hr tablet Sig: Take 2 tablets by mouth daily with breakfast. Please review and advise. Isabell Stephenson documented in this encounterSumma Health06-21-2023 Miscellaneous Notes* Telephone Encounter - Chidi Roper Ma - 10/17/2022 10:58 AM EDT Patient notified, verbalized understanding. [place] patient read to message and he will being iron supplement. * Telephone Encounter - Chidi Roper Ma - 10/17/2022 10:56 AM EDT ----- Message from Lynn Hein APRN.CNP sent at 10/17/2022 9:05 AM EDT ----- Stool negative for hidden blood. Please make sure patient reads My Chart message I sent to him yesterday Lynn Hein APRN.CNP documented in this encounterSumma Health06-16-2023 History of Present illness Narrative* Lynn Hein APRN.CNP - 10/12/2022 11:50 AM EDT CC: Patient presents with: Follow Up HPI Vidal Kay is a 77 year old male who presents today for above. Patient was seen a few days agofor shortness of breath, fatigue and cough along with an episode of chest pain. D-dimer was elevated, subsequent chest CT was negative for PE but did show findings consistent with pneumonia. He was started on Zithromax and Augmentin. Today patient reports his cough and SOB have improved, no furtherepisodes of chest pain. Still feeling fatigued. Denies fever, chills, chest pain, palpitations, edema, hemoptysis, PND, orthopnea. He was also found to be anemic on labs. Anemia work-up ordered but he has not done yet. Denies dizziness, lightheadedness, feeling faint, syncope, black/bloody stools, unintentional weight loss. REVIEW OF SYSTEMS See HPI PAST MEDICAL HISTORY Diagnosis Date Anemia, unspecified 03/01/2006 Aortic stenosis, moderate 10/07/2020 BPH without obstruction/lower urinary tract symptoms 07/31/2006 DM type 2, uncontrolled, with neuropathy 10/21/2015 Hemorrhage of gastrointestinal tract, unspecified Hyperlipidemia Hypertension 01/11/2014 Mitral regurgitation 07/03/2011 Personal history of colonic polyps 07/31/2006 Colonoscopy 28 February 2006 Primary osteoarthritis of right knee 01/28/2018 Snoring Ulcerative colitis (HCC) 01/30/2005 PAST SURGICAL HISTORY Procedure Laterality Date COLONOSCOPY FLX DX W/COLLJ SPEC WHEN PFRMD 03/11/1995 Colonoscopy COLONOSCOPY FLX DX W/COLLJ SPEC WHEN PFRMD 07/12/2008 Colonoscopy COLONOSCOPY FLX DX W/COLLJ SPEC WHEN PFRMD 05/16/2015 Colonoscopy COLONOSCOPY FLX DX W/COLLJ SPEC WHEN PFRMD 06/08/2019 Colonoscopy COLONOSCOPY W/BIOPSY SINGLE/MULTIPLE 02/28/06 NEUROPLASTY &/TRANSPOS MEDIAN NRV CARPAL TUNNE 1992 Carpal tunnel decomp, bilateral SIGMOIDOSCOPY FLX DX W/COLLJ SPEC BR/WA IF PFRMD 04/08/09 SIGMOIDOSCOPY FLX DX W/COLLJ SPEC BR/WA IF PFRMD 06/23/2015 Sigmoidoscopy, flexible ALLERGIES Patient has no known allergies. MEDICATIONS amoxicillin-clavulanic acid (AUGMENTIN) 875-125 mg per tablet Take 1 tablet by mouth twice daily for 7 days. azithromycin (ZITHROMAX) 250 mg tablet Take 2 tablets by mouth once daily for 1 day, THEN 1 tablet once daily for 4 days. codeine-guaiFENesin (ROBITUSSIN AC) 10-100 mg/5 mL syrup Take 5-10 mL by mouth three times daily asneeded for up to 7 days. trimethoprim-polymyxin (POLYTRIM) 10,000 unit- 1 mg/mL ophthalmic solution Use 2 Drops in both eyestwice daily. Use for 7 days. insulin glargine (LANTUS SOLOSTAR U-100 INSULIN) 100 unit/mL (3 mL) Inject 15 Units subcutaneously daily at bedtime. insulin needles, DISPOSABLE, (PEN NEEDLE) 31 gauge x 09/11 Use one needle for each dose ramipril (ALTACE) 5 mg capsule Take 1 capsule by mouth once daily. lancets (ONE TOUCH DELICA) 33 gauge Test blood sugar(s) 4 times daily. Dx: Other DM Code E11.49 Insulin: Yes glipiZIDE (GLUCOTROL XL) 5 mg 24 hr tablet Take 2 tablets by mouth daily with breakfast. dapagliflozin (FARXIGA) 10 mg tablet Take 1 tablet by mouth daily with breakfast. Mesalamine (LIALDA) 1.2 gram EC tablet Take 2 tablets by mouth once daily. Per Dr. Aguilar Friend. VITAMIN C 1,000 MG TAB Take one(1) tablet daily. GLUCOSAMINE CHONDROITIN MAXSTR 500 MG-400 MG CAP Take one(1) tablet daily. MULTIVITAMIN TAB Take one(1) tablet daily. valACYclovir (VALTREX) 500 mg tablet Take 500 mg by mouth once daily. X 10 days blood sugar diagnostic (BLOOD GLUCOSE TEST) test strip TEST BLOOD SUGAR 3 TIMES PER DAY. DX: E11.40. INSULIN DEP: Yes FAMILY HISTORY Problem Relation Age of Onset Diabetes Mother 55 CAD Coronary Artery Disease Mother Diabetes Father CAD Coronary Artery Disease Father 55 CABG Breast Cancer Sister Breast Cancer Daughter Social History Tobacco Use Smoking status: Former Types: Pipe Quit date: 04/29/1989 Years since quittin.4 Smokeless tobacco: Current Types: Chew Tobacco comments: 20 years cigs till 1979, pipe till Vaping Use Vaping Use: Never used Substance Use Topics Alcohol use: Never Drug use: No PHYSICAL EXAM BP 122/64 (BP Site: Left Arm, BP Position: Sitting, BP Cuff Size: Regular Adult) Pulse 72 Resp 16 Wt 67.6 kg (149 lb) SpO2 100% BMI 24.79 kg/m General Appearance: well appearing, in no acute distress, alert Skin: Skin color, texture, turgor normal for age; Eyes: conjunctiva pink and moist, no icterus, sclera white, non-injected Lungs: Lungs clear to auscultation. No wheezing, rhonchi, rales. Heart: RRR without murmur, gallop, or rubs. No ectopy DATA REVIEWED: Most recent labs and imaging results. 10/09/2022 3:26 PM - Radiology, [place] [facility] Impression IMPRESSION: 1. No CT evidence of pulmonary embolism. 2. Mild reticulation of the interstitial markings in a peripheral and basilar predominance suggests mild fibrosis. 3. Couple of calcified pleural plaques may be postinfectious/inflammatory in etiology or reflect the sequela of asbestos exposure. 4. Couple of mild patchy opacities in the right upper lobe, right lower lobe and lingula suspect for an infectious/inflammatory process in the appropriate clinical setting. Component Latest Ref Rng & Units 10/08/2022 Protein, Total 6.3 - 8.0 g/dL 8.2 (H) Albumin 3.9 - 4.9 g/dL 3.4 (L) Calcium 8.5 - 10.2 mg/dL 9.6 Bilirubin, Total 0.2 - 1.3 mg/dL 0.3 Alkaline Phosphatase 38 - 113 U/L 109 AST 14 - 40 U/L 23 ALT 10 - 54 U/L 19 Glucose 74 - 99 mg/dL 147 (H) BUN 9 - 24 mg/dL 23 Creatinine 0.73 - 1.22 mg/dL 0.97 Sodium 136 - 144 mmol/L 138 Potassium 3.7 - 5.1 mmol/L 4.4 Chloride 97 - 105 mmol/L 102 CO2 22 - 30 mmol/L 23 Anion Gap 9 - 18 mmol/L 13 eGFR >=60 mL/min/1.73m 80 WBC 3.70 - 11.00 k/uL 7.55 RBC 4.20 - 6.00 m/uL 3.69 (L) Hemoglobin 13.0 - 17.0 g/dL 9.5 (L) Hematocrit 39.0 - 51.0 % 30.0 (L) MCV 80.0 - 100.0 fL 81.3 MCH 26.0 - 34.0 pg 25.7 (L) MCHC 30.5 - 36.0 g/dL 31.7 RDW-CV 11.5 - 15.0 % 15.9 (H) Platelet Count 150 - 400 k/uL 374 MPV 9.0 - 12.7 fL 9.7 Absolute nRBC <0.01 k/uL <0.01 d Dimer <500 ng/mL FEU 2,630 (H) D Dimer Age-related Cutoff ng/mL FEU 770 ASSESSMENT/PLAN: 1. Pneumonia of right lung due to infectious organism, unspecified part of lung - ICD9: 483.8, ICD10: J18.9 (primary diagnosis) Symptoms improving. No new or worsening symptoms. Continue with antibiotic course until completed. Follow-up in two months as scheduled or sooner if needed 2. Anemia, unspecified type - ICD9: 285.9, ICD10: D64.9 Have lab work-up done, bring in stool sample for FOBT. Further recommendations pending results Prescription instructions reviewed with patient as applicable. Potential red flag symptoms discussed with the patient. Reviewed appropriate action plan to take if red flag symptoms occur. Patient agreeable to treatment plan. Lynn Hein APRN.CNP documented in this encounterSumma Health06-13-2023 Miscellaneous Notes* Telephone Encounter - Lynn Hein APRN.CNP - 10/09/2022 3:38 PM EDT Reviewed results of CT scan with patient and . Negative for PE, findings consistent with pneumonia. Starting treatment with antibiotics. Close follow-up with me on Saturday. Recommend ER for any worsening symptoms. Patient and verbalized understanding. Lynn Hein APRN.CNP * Telephone Encounter - Lynn Hein APRN.CNP - 10/09/2022 7:16 AM EDT TC to patient to discuss lab results. D-dimer significantly elevated. Patient denies any worsening of symptoms except for cough. No further episodes of chest pain. Advised patient he will need stat CT chest to rule out PE, he verbalized understanding. Will have schedulers call him. Labs also showing worsening anemia, last CBC was two years ago. He will need further lab work to evaluate, he will come to lab to have done today. He was advised to go to ER or call 911 if SOB worsens or has any further episodes of chest pain Lynn Hein APRN.CNP documented in this encounterSumma Health06-13-2023 History of Present illness Narrative* Shira Cornelius RT(R) - 10/09/2022 2:40 PM EDT Radiology Service Progress Note DATE OF SERVICE: October 09, 2022 TIME: 4:12 PM PATIENT IDENTITY VERIFICATION COMPLETED USING TWO (2) STANDARD IDENTIFIERS: Name and Date of confirmed by patient verbally. FALL SCREENING: Has the patient had 2 falls in the last year or 1 fall with injury or currently using an Ambulatory Assistive Device (Walker, Cane, Wheelchair, Crutches, etc.)? No PATIENT GENDER DATA: Male PATIENT RELEVANT IMPLANT DATA REVIEWED: Yes ALLERGIES: Reviewed and unchanged CONTRAST ALLERGY: NO. EXAM: CT -CONTRAST INDUCED NEPHROPATHY RISK FACTORS: Patient age > 60 years CREATININE: Creatinine Date Value Ref Range Status 10/08/2022 0.97 0.73 - 1.22 mg/dL Final 02/27/2022 0.87 0.73 - 1.22 mg/dL Final 12/07/2021 0.92 0.73 - 1.22 mg/dL Final Estimated Glomerular Filtration Rate Date Value Ref Range Status 10/08/2022 80 >=60 mL/min/1.73m Final Comment: Estimated Glomerular Filtration Rate (eGFR) is calculated using the 2020 CKD-EPI creatinine equation. This equation utilizes serum creatinine, sex, and age as parameters. The creatinine assay has traceable calibration to isotope dilution- mass spectrometry. Refer to KDIGO guidelines for clinical interpretation. In patients with unstable renal function, e.g. those with acute kidney injury, the eGFRmay not accurately reflect actual GFR. eGFR- Date Value Ref Range Status 06/09/2021 >60 Final P.O.C.T. RESULTS: POC done: Yes, See Lab Tab October 09, 2022 TREATMENT: N/A PERIPHERAL IV DATA: Ambulatory: A peripheral IV was started in the Left antecubital site with a Angio cath: 18 gauge. RADIOLOGY DEPARTMENT: CT; Exam(s) Completed: PE Study SIGNATURE: RT Ana(R) PATIENT NAME: Vidal Kay DATE: October 09, 2022 TIME: 4:12 PM documented in this encounterSumma Health05-01-2023 Miscellaneous Notes* Telephone Encounter - Nancy Farooq LPN - 08/27/2022 3:11 PM EDT Patient notified, verbalized understanding. Nancy Farooq LPN * Telephone Encounter - Lynn Hein APRN.CNP - 08/27/2022 2:42 PM EDT Please let the patient know chest x-ray was normal. Let me know on Saturday if symptoms have not improved or sooner if any worsening Lynn Hein APRN.CNP documented in this encounterSumma Health05-01-2023 History of Present illness Narrative* Mary Anne Combs RT(Roger) - 08/27/2022 1:20 PM EDT Radiology Service Progress Note PATIENT NAME: Vidal Kay DATE OF SERVICE: August 27, 2022 TIME: 1:18 PM PATIENT IDENTITY VERIFICATION COMPLETED USING TWO (2) IDENTIFIERS: Name and Date of confirmedby patient verbally. FALL SCREENING: Has the patient had 2 falls in the last year or 1 fall with injury or currently using an Ambulatory Assistive Device (Walker, Cane, Wheelchair, Crutches, etc.)? No PATIENT GENDER DATA: Male PATIENT RELEVANT IMPLANT DATA REVIEWED: Yes RADIOLOGY DEPARTMENT: General X-ray: Exam(s) Completed: Chest X-Ray PERIPHERAL IV DATA: Not applicable SIGNED BY: RT Huma(Roger) August 27, 2022 1:18 PM documented in this encounterSumma Health05-01-2023 History of Present illness Narrative* Lynn Older, [employer] - 08/27/2022 12:59 PM EDT CC: Patient presents with: Cough HPI: Vidal Kay is a 77 year old male who presents to the office with complaint of respiratory symptoms for 2 weeks. He was seen in the [facility] for this on 08/19. Treated with Z-pack and cough medicine. Symptoms are staying the same except cough has slightly improved over the past couple days and appetite is improving. Associated symptoms includes nasal congestion, rhinorrhea, productive cough with clear sputum, and fatigue. Denies facial pain/pressure, headache, body aches, fever, ear pain, and ear pressure . Treatments tried include OTC cough syrup History of asthma, frequent episodes of bronchitis, chronic bronchitis, bronchiectasis or COPD: No Smoker: No Seasonal/environmental allergies: No Eye symptoms x 2 weeks include redness, drainage scant amount yellow, burning, itching, irritation,light sensitivity and crusting Denies: photophobia, severe foreign body sensation , eye pain, visual changes, severe headache withnausea, and foreign body exposure to eye. Contact lens: No The ROS is otherwise negative. The patient's pmh, medications, allergies, and past visits are reviewed. PHYSICAL EXAM: BP 120/62 (BP Site: Left Arm, BP Position: Sitting, BP Cuff Size: Large Adult) Pulse 68 Temp 36.5 C (97.7 F) Wt 68.5 kg (151 lb) BMI 25.13 kg/m General appearance: alert, cooperative, pleasant, in no acute distress Head: Normocephalic Eyes: right eye- conjunctival erythema, purulent drainage, sclera injected. PERRL. Corneas normal. EOM painless. Left eye-normal Ears: Right ear: External ear/canal- Normal, TM - clear with good landmarks. Left ear: External ear/canal- Normal, TM - clear with good landmarks Nose: clear, no sinus tenderness. Oropharynx:No erythema, exudates or tonsillar hypertrophy. Neck:supple and no adenopathy Heart: Negative. RRR without obvious murmur, gallop, or rubs. No ectopy. Lungs: clear to auscultation, without rales or wheeze, good air exchange ASSESSMENT/PLAN: 1. Acute cough - ICD9: 786.2, ICD10: R05.1 (primary diagnosis) Post infectious cough vs pneumonia - XR CHEST 2V FRONTAL/LAT today - continue with OTC cough syrup as needed - further recommendations pending results 2. Acute conjunctivitis of right eye, unspecified acute conjunctivitis type - ICD9: 372.00, ICD10: H10.31 Start polytrim, see orders - course and contagiousness issues discussed, including hand washing. - Instructed to call if high fever, development of periorbital redness or swelling, eye pain, visual changes, concerns or if symptoms persist. Prescription instructions reviewed with patient as applicable. Potential red flag symptoms discussed with the patient. Reviewed appropriate action plan to take if red flag symptoms occur. Patient agreeable to treatment plan. Lynn Hein APRN.CNP documented in this encounterSumma Health03-20-2023 Miscellaneous Notes* Telephone Encounter - Tamara Calhoun LPN - 07/16/2022 2:55 PM EDT Patient has been identified by name and date of : No Patient phones for refill(s): Requested Prescriptions Pending Prescriptions Disp Refills insulin needles, DISPOSABLE, (PEN NEEDLE) 31 gauge x 5/16 100 Each 11 Sig: Use one needle for each dose Date of last office visit in primary care: 06/14/22 Last 2 Encounter Wt Readings: Date: Wt: 06/14/2022 69.9 kg (154 lb) 03/06/2022 71.7 kg (158 lb) Previous labs/tests for medication: Diabetes: Hemoglobin A1C (%) Date Value 06/08/2022 7.3 02/27/2022 7.0 06/09/2021 8.9 03/09/2021 8.4 Please advise. Thank you. Tamara Calhoun LPN * Telephone Encounter - Debbie Landon - 07/16/2022 10:45 AM EDT Patient has been identified by name and date of : Yes Requested Prescriptions Pending Prescriptions Disp Refills insulin needles, DISPOSABLE, (PEN NEEDLE) 31 gauge x 5/16 100 Each 11 Sig: Use one needle for each dose RX INSTRUCTIONS: Patient aware RX will be sent to pharmacy. No need to notify patient. Debbie Diego Pss documented in this encounterSumma Health02-16-2023 History of Present illness Narrative* Felix Bill MD - 06/14/2022 8:46 AM EST This note was created using [employer]. Subjective Vidal Kay is a 77 year old male. He felt well. He forgot his meter, but his glucose readings were stable on his current dose. He will see Dr. Torres this afternoon for cardiology follow up. He reported some vertigo several weeks ago that resolved with positional changes. Review of Systems Constitutional: Negative. Respiratory: Negative. Cardiovascular: Negative. Gastrointestinal: Negative for abdominal pain and diarrhea. Neurological: Negative. ACTIVE PROBLEM LIST Ulcerative Colitis (Hcc) Personal History of Tobacco Use, Presenting Hazards to Health Anemia, Unspecified Personal history of colonic polyps Mitral Regurgitation Hypertension Hyperlipidemia Primary Osteoarthritis of Right Knee Aortic Stenosis, Moderate Diabetes Mellitus Type 2 With Neurological Manifestations (Hcc) Current Outpatient Medications Medication Sig lancets (ONE TOUCH DELICA) 33 gauge Test blood sugar(s) 4 times daily. Dx: Other DM Code E11.49 Insulin: Yes insulin glargine (LANTUS SOLOSTAR U-100 INSULIN) 100 unit/mL (3 mL) Inject 15 Units subcutaneously daily at bedtime. glipiZIDE (GLUCOTROL XL) 5 mg 24 hr tablet Take 2 tablets by mouth daily with breakfast. dapagliflozin (FARXIGA) 10 mg tablet Take 1 tablet by mouth daily with breakfast. blood sugar diagnostic (BLOOD GLUCOSE TEST) test strip TEST BLOOD SUGAR 3 TIMES PER DAY. DX: E11.40. INSULIN DEP: Yes ramipril (ALTACE) 5 mg capsule Take 1 capsule by mouth once daily. Mesalamine (LIALDA) 1.2 gram EC tablet Take 2 tablets by mouth once daily. Per Dr. Jeff Jimenez. insulin needles, DISPOSABLE, (PEN NEEDLE) 31 gauge x 5/16 Use one needle for each dose VITAMIN C 1,000 MG TAB Take one(1) tablet daily. GLUCOSAMINE CHONDROITIN MAXSTR 500 MG-400 MG CAP Take one(1) tablet daily. MULTIVITAMIN TAB Take one(1) tablet daily. No current facility-administered medications for this visit. Objective BP 126/58 (BP Site: Right Arm, BP Position: Sitting, BP Cuff Size: Large Adult) Pulse 68 Temp 36.2 C (97.2 F) (Temporal) Resp 16 Wt 69.9 kg (154 lb) BMI 25.63 kg/m Physical Exam Constitutional: General: He is not in acute distress. Cardiovascular: Rate and Rhythm: Normal rate and regular rhythm. Heart sounds: S1 normal and S2 normal. Murmur heard. Systolic murmur is present with a grade of 2/6. Pulmonary: Breath sounds: Normal breath sounds. Neurological: Mental Status: He is alert. Gait: Gait normal. Component Latest Ref Rng & Units 06/08/2022 Hemoglobin A1C 4.3 - 5.6 % 7.3 (H) Estimated Average Glucose mg/dL 163 Assessment and Plan 1. Diabetes mellitus type 2 with neurological manifestations (HCC) - ICD9: 250.60, ICD10: E11.49 (primary diagnosis) improved control - Continue current medications - HGB A1C - ALBUMIN/CREAT RATIO RND UR 2. 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 3. Primary hypertension - ICD9: 401.9, ICD10: I10 - good control - CBC - RAMIPRIL 5 MG CAPSULE 4. Aortic stenosis, moderate - ICD9: 424.1, ICD10: I35.[address] Torres today. 5. Hyperlipidemia, unspecified hyperlipidemia type - ICD9: 272.4, ICD10: E78.5 - to be determined upon return of lab results - Diet managed. - COMP METABOLIC PANEL - LIPID PANEL BASIC Felix Bill MD documented in this encounterSumma Health02-10-2023 Miscellaneous Notes* Telephone Encounter - Betty Hill RN - 06/08/2022 1:28 PM EST Pt's calling on status of script request. Advised that PCP will review request as soon aspossible. Betty Hill, RN * Telephone Encounter - Lauryn Almonte LPN - 06/07/2022 2:42 PM EST Patient has been identified by name and date of : Yes, Provider Ines Date 06/07/22 Time 2:42pm Patient phones for refill(s): Requested Prescriptions Pending Prescriptions Disp Refills lancets (ONE TOUCH DELICA) 33 gauge 100 Each 11 Sig: Test blood sugar(s) 3 daily. Dx: Other DM Code E11.49 Insulin: Yes Date of last office visit in primary care: 03/06/22 Last 2 Encounter Wt Readings: Date: Wt: 03/06/2022 71.7 kg (158 lb) 12/15/2021 69 kg (152 lb 3.2 oz) Please advise. Thank you. Lauryn Almonte LPN * Telephone Encounter - Aviva Arreola - 06/07/2022 12:46 PM EST Patient has been identified by name and date of : Yes One Touch Delica Plus lancets 33 gauge. RX INSTRUCTIONS: Patient aware RX will be sent to pharmacy. No need to notify patient. Aviva Arreola documented in this encounterSumma Health11-08-2022 History of Present illness Narrative* Felix Bill MD - 03/06/2022 8:41 AM EST This note was created using [employer]. Subjective Vidal Kay is a 77 year old male. He was doing well. His fasting glucoses were low 54-92. Random glucoses were variable and highest after dinner. He was cutting back on insulin and was down to 17 units. Review of Systems Constitutional: Negative. Respiratory: Negative. Cardiovascular: Negative. Gastrointestinal: Negative. Neurological: Negative. ACTIVE PROBLEM LIST Ulcerative Colitis (Hcc) Personal History of Tobacco Use, Presenting Hazards to Health Anemia, Unspecified Personal history of colonic polyps Mitral Regurgitation Hypertension Hyperlipidemia Primary Osteoarthritis of Right Knee Aortic Stenosis, Moderate Diabetes Mellitus Type 2 With Neurological Manifestations (Hcc) Current Outpatient Medications Medication Sig dapagliflozin (FARXIGA) 10 mg tablet Take 1 tablet by mouth daily with breakfast. Lancets lancets LANCETS FOR GLUCOSE METER. TEST 4 TIMES DAILY. E11.40 blood sugar diagnostic (BLOOD GLUCOSE TEST) test strip TEST BLOOD SUGAR 3 TIMES PER DAY. DX: E11.40. INSULIN DEP: Yes ramipril (ALTACE) 5 mg capsule Take 1 capsule by mouth once daily. Mesalamine (LIALDA) 1.2 gram EC tablet Take 2 tablets by mouth once daily. Per Dr. Aguilar Friend. insulin needles, DISPOSABLE, (PEN NEEDLE) 31 gauge x 5/16 Use one needle for each dose VITAMIN C 1,000 MG TAB Take one(1) tablet daily. GLUCOSAMINE CHONDROITIN MAXSTR 500 MG-400 MG CAP Take one(1) tablet daily. MULTIVITAMIN TAB Take one(1) tablet daily. insulin glargine (LANTUS SOLOSTAR U-100 INSULIN) 100 unit/mL (3 mL) Inject 15 Units subcutaneously daily at bedtime. glipiZIDE (GLUCOTROL XL) 5 mg 24 hr tablet Take 2 tablets by mouth daily with breakfast. No current facility-administered medications for this visit. Objective BP 131/67 (BP Site: Left Arm, BP Position: Sitting, BP Cuff Size: Large Adult) Pulse 65 Temp (!) 35.8 C (96.5 F) (Temporal) Resp 12 Wt 71.7 kg (158 lb) BMI 26.29 kg/m Physical Exam Constitutional: Appearance: Normal appearance. Cardiovascular: Rate and Rhythm: Normal rate and regular rhythm. Heart sounds: Murmur heard. Pulmonary: Breath sounds: Normal breath sounds. Musculoskeletal: Right lower leg: No edema. Left lower leg: No edema. Neurological: Mental Status: He is alert. Feet:Shoes and socks removed, No deformities, ulcers, calluses, normal distal pulses, and sensitiveto 10 gm monofilament Component Latest Ref Rng & Units 02/27/2022 Glucose 74 - 99 mg/dL 71 (L) BUN 9 - 24 mg/dL 21 Creatinine 0.73 - 1.22 mg/dL 0.87 Sodium 136 - 144 mmol/L 139 Potassium 3.7 - 5.1 mmol/L 4.3 Chloride 97 - 105 mmol/L 102 CO2 22 - 30 mmol/L 27 Anion Gap 9 - 18 mmol/L 10 Calcium 8.5 - 10.2 mg/dL 9.8 eGFR >=60 mL/min/1.73m 89 Creatinine, Ur Random (UCRR) 20.0 - 300.0 mg/dL 96.7 Albumin, Urine Random mg/L 95.1 Albumin/Creat Ratio <30 mg/g 98 (H) Hemoglobin A1C 4.3 - 5.6 % 7.0 (H) Estimated Average Glucose mg/dL 154 LDL Cholesterol, Direct <100 mg/dL 89 Glucose meter data or log was reviewed for the past month. Range: 55-266. Average: n/a. Patient wastesting QID. Higher frequency of testing needed: no. Reason: medication adjustment, uncontrolled DM, labile blood sugars. Assessment and Plan 1. Hyperlipidemia, unspecified hyperlipidemia type - ICD9: 272.4, ICD10: E78.5 (primary diagnosis) - good control - Continue diet alone. 2. Diabetes mellitus type 2 with neurological manifestations (HCC) - ICD9: 250.60, ICD10: E11.49 Controlled. - INSULIN GLARGINE (U-100) 100 UNIT/ML (3 ML) SUBCUTANEOUS PEN. Reduce to 15 units daily. - GLIPIZIDE ER 5 MG TABLET, EXTENDED RELEASE 24 HR. Take two tablets in the AM. 3. Primary hypertension - ICD9: 401.9, ICD10: I10 - fair control 4. Anemia, unspecified type - ICD9: 285.9, ICD10: D64.9 Stable. 5. Nonrheumatic mitral valve regurgitation - ICD9: 424.0, ICD10: I34.0 Stable. Felix Bill MD documented in this encounterSumma Health09-01-2022 Miscellaneous Notes* Telephone Encounter - Felix Bill MD - 12/28/2021 5:26 PM EDT I called patient, and his numbers were better, plus the other benefits discussed. Medication refilled. * Telephone Encounter - [place]va Santana [facility] [place]27/2021 9:34 AM EDT Patient discontinued taking the FARXIGA per at his office visit on 12/15/2021 however he calls today to say his numbers have gotten worse and he would like to have the medication okay by the provider to restart and to please call in to his [facility]. . He restarted the FARXIGA medication two days ago and his numbers have improved. Please call to discuss, Lilian at [phone] , phone number has been verified Electronically signed by [facility] [place] [place] [facility] [place] 12/27/2021 9:45 AM EDT documented in this encounterSumma Health08-19-2022 History of Present illness Narrative* Felix Bill MD - 12/15/2021 9:28 AM EDT This note was created using [employer]. Subjective Vidal Kay is a 76 year old male. He was counting carbs and generally kept carbs to less than 50 grams per day. Farxiga was taken but cost was an issue. He had improved readings on glipizide. Hewas interested in stopping Farxiga for now. Review of Systems Constitutional: Negative. Respiratory: Negative. Cardiovascular: Negative. Endocrine: Negative. Neurological: Negative. ACTIVE PROBLEM LIST Ulcerative Colitis (Hcc) Personal History of Tobacco Use, Presenting Hazards to Health Anemia, Unspecified Personal history of colonic polyps Mitral Regurgitation Hypertension Hyperlipidemia Primary Osteoarthritis of Right Knee Aortic Stenosis, Moderate Diabetes Mellitus Type 2 With Neurological Manifestations (Hcc) Current Outpatient Medications Medication Sig glipiZIDE (GLUCOTROL XL) 5 mg 24 hr tablet Take 1 tablet by mouth twice daily before meals. dapagliflozin (FARXIGA) 10 mg tablet Take 1 tablet by mouth daily with breakfast. ramipril (ALTACE) 5 mg capsule Take 1 capsule by mouth once daily. insulin glargine (LANTUS SOLOSTAR U-100 INSULIN) 100 unit/mL (3 mL) Inject 20 Units subcutaneously daily at bedtime. Mesalamine (LIALDA) 1.2 gram EC tablet Take 2 tablets by mouth once daily. Per Dr. Aguilar Friend. VITAMIN C 1,000 MG TAB Take one(1) tablet daily. GLUCOSAMINE CHONDROITIN MAXSTR 500 MG-400 MG CAP Take one(1) tablet daily. MULTIVITAMIN TAB Take one(1) tablet daily. Lancets lancets LANCETS FOR GLUCOSE METER. TEST 4 TIMES DAILY. E11.40 blood sugar diagnostic (BLOOD GLUCOSE TEST) test strip TEST BLOOD SUGAR 3 TIMES PER DAY. DX: E11.40. INSULIN DEP: Yes insulin needles, DISPOSABLE, (PEN NEEDLE) 31 gauge x 5/16 Use one needle for each dose No current facility-administered medications for this visit. Objective BP 124/56 (BP Site: Left Arm, BP Position: Sitting) Pulse 69 Temp (!) 35.9 C (96.7 F) (Temporal) Wt 69 kg (152 lb 3.2 oz) SpO2 96% BMI 25.33 kg/m Physical Exam Constitutional: Appearance: Normal appearance. Cardiovascular: Rate and Rhythm: Normal rate and regular rhythm. Heart sounds: Murmur heard. Comments: LSB Pulmonary: Breath sounds: Normal breath sounds. Musculoskeletal: Right lower leg: No edema. Left lower leg: No edema. Neurological: Mental Status: He is alert. Component Latest Ref Rng & Units 12/07/2021 Protein, Total 6.3 - 8.0 g/dL 8.1 (H) Albumin 3.9 - 4.9 g/dL 3.9 Calcium 8.5 - 10.2 mg/dL 10.0 Bilirubin, Total 0.2 - 1.3 mg/dL 0.2 Alkaline Phosphatase 38 - 113 U/L 91 AST 14 - 40 U/L 19 ALT 10 - 54 U/L 19 Glucose 74 - 99 mg/dL 79 BUN 9 - 24 mg/dL 23 Creatinine 0.73 - 1.22 mg/dL 0.92 Sodium 136 - 144 mmol/L 139 Potassium 3.7 - 5.1 mmol/L 4.5 Chloride 97 - 105 mmol/L 102 CO2 22 - 30 mmol/L 27 Anion Gap 9 - 18 mmol/L 10 eGFR >=60 mL/min/1.73m 86 Cholesterol, Total <200 mg/dL 161 Triglyceride <150 mg/dL 41 HDL Cholesterol >39 mg/dL 74 Non HDL Cholesterol <130 mg/dL 87 Fasting Time hrs 13 VLDL Cholesterol <30 mg/dL 8 TC:HDL Ratio <5.10 2.18 LDL Cholesterol <100 mg/dL 79 LDL:HDL Ratio <2.54 1.07 Hemoglobin A1C 4.3 - 5.6 % 7.3 (H) Estimated Average Glucose mg/dL 163 Glucose meter data or log was reviewed for the past month. Range: 55-126 fasting. 118-275 postmeals. Average: n/a. Patient was testing QID. Higher frequency of testing needed. . Reason: labile. Assessment and Plan 1. Diabetes mellitus type 2 with neurological manifestations (HCC) - ICD9: 250.60, ICD10: E11.49 (primary diagnosis) improved control - Shared medical decision making. Benefits of Farxiga were reviewed. We agreed to discontinue FARXIGA at this time. Continue other medications. - BASIC METABOLIC PNL - HGB A1C - ALBUMIN/CREAT RATIO RND UR 2. Hyperlipidemia, unspecified hyperlipidemia type - ICD9: 272.4, ICD10: E78.5 - good control - Encouraged following a low carbohydrate, healthy oil intake diet. - LDL CHOLESTEROL DIR 3. Primary hypertension - ICD9: 401.9, ICD10: I10 - good control Felix Bill MD documented in this encounterSumma Health07-11-2022 Miscellaneous Notes* Telephone Encounter - Chidi Roper Ma - 11/06/2021 4:43 PM EDT Spoke with Lilian - she would like this do go to [facility] instead of mail order. * Telephone Encounter - Lynn Hein APRN.CNP - 11/06/2021 11:10 AM EDT Sent to mail order. Will he have enough until mail order arrives? Lynn Hein APRN.CNP * Telephone Encounter - Lizette Thacker RN - 11/06/2021 8:59 AM EDT Pts called in and reports Pt has increased Glipizide from once daily to twice daily. She report they are going on vacation, and needs to get it filled for larger dose before they leave. Patient has been identified by name and date of : Yes Spouse phones for refill(s): Pending Prescriptions Disp Refills GLIPIZIDE ER 5 MG TABLET, EXTENDED RELEASE 24 HR 180 tablet 2 Sig: Take 1 tablet by mouth twice daily before meals. PRUDENCIO: No Date of last office visit in primary care: 09/12/21 Future visit: 12/15/21 Last 2 Encounter Wt Readings: Date: Wt: 10/23/2021 69.5 kg (153 lb 2.4 oz) 09/12/2021 68.5 kg (151 lb) Previous labs/tests for medication: Diabetes: Hemoglobin A1C (%) Date Value 09/07/2021 9.3 06/09/2021 8.9 03/09/2021 8.4 Please advise. Thank you. Lizette Thacker RN documented in this encounterSumma Health07-06-2022 Miscellaneous Notes* Telephone Encounter - Chidi Roper Ma - 11/01/2021 9:03 AM EDT Lilian notified, verbalized understanding. Chidi Roper Ma * Telephone Encounter - Felix Bill MD - 10/31/2021 4:33 PM EDT This is the first time I am hearing a contracts officer make recommendations involving medication. Nevertheless, if the wants to add a glipizide, it is reasonable. Patient can add a glipizide with lunch or dinner. * Telephone Encounter - Jie Montoya RN - 10/31/2021 12:19 PM EDT reports patient saw contracts officer, Trish, who recommended pcp add another glipizide to his regimen, either at lunch or dinner. Reports patient currently taking glipizide, timothy and lantus. Please advise patient. documented in this encounterSumma Health06-27-2022 Instructions* Patient Instructions* Trish Islas RD - 10/23/2021 9:16 AM EDT Add almonds, walnuts, and other nuts for snacks Add extra healthy oils to meals (olive oil, canola oil) Plan for snacks when going to be actve Keep proteins low in saturated fat (chicken, turkey, fish) Continue carb controlled diet - ~45 grams documented in this encounterSumma Health06-27-2022 History of Present illness Narrative* Trish Islas RD - 10/23/2021 8:45 AM EDT Nutrition Therapy Initial Assessment Nutrition Diagnosis: Altered nutrition-related lab values, related to, endocrine dysfunction, as evidenced by uncontrolled diabetes. RECOMMENDED MALNUTRITION DIAGNOSIS: NO MALNUTRITION IDENTIFIED NUTRITION CARE PLAN Nutrition Intervention 10/23/2021: modify type and amount of food or beverage Add almonds, walnuts, and other nuts for snacks Add extra healthy oils to meals (olive oil, canola oil) Plan for snacks when going to be actve Keep proteins low in saturated fat (chicken, turkey, fish) Continue carb controlled diet - ~45 grams Nutrition Monitoring & Evaluation: blood sugars in target range Need for Follow up: as needed Patient presents for initial MNT as relates to uncontrolled diabetes, spouse present and assisting with meals. Food and glucose records kept. Patient follows carb controlled diet of usually 30 grams carb in effort to control blood sugars. Good knowledge of carbs. Fasting and post meal breakfast usually in target range, above target through the rest of day. Has lost weight with changes . Is very active on daily basis and includes regular exercise. Includes occ high fat/high saturated fat foods. May benefit from clinical pharmacy consult Patient's symptoms are: HgA1c 9.3 Diet History: Breakfast - Cheerios/skim, blue berries; sausage and gravy, eggs, bread Snack - cheese, salami, apple with pnb, baby cucumbers with hmmus Lunch - sandwiches, brock salad Snack - cheese, meats Dinner - meat, starch, vegetables, Snack - cottage cheese, fruit Beverages - gatoradezero, water Alcohol- no Activity: Activities of Daily Living: Active 50% of the day. 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 Resting Metabolic Rate: 1356 Malnutrition Screening Significant unintentional weight loss? No Eating less than 75% of usual intake for more than 2 weeks? No Potential Signs of Inflammation: chronic condition Education Materials Provided: None this visit READINESS TO LEARN Cognitive ability: Alert and oriented Motivation to learn: Interested Family support: High - Very involved in pt care Instruction provided to: Patient and family member Patient learns best by: Individual Instruction Factors affecting learning: None Physical limitations affecting learning: None Referred/Supervised by: Bernadette FELICIANO Billing Type: Initial Assess/15 min 3 units SIGNATURE: Trish Islas RD PATIENT NAME: Vidal Kay DATE: October 23, 2021 TIME: 8:51 AM documented in this encounterSumma Health06-07-2022 Miscellaneous Notes* Telephone Encounter - Princess Maharaj RN - 10/03/2021 1:59 PM EDT Patient has been identified by name and date of : Yes Spouse phones for refill(s): Pending Prescriptions Disp Refills LANCETS 200 Each 3 Sig: LANCETS FOR GLUCOSE METER. TEST 4 TIMES DAILY. E11.40 PRUDENCIO: No Date of last office visit in primary care: 09/12/2021 Patient has been checking his blood sugars 4 times a day due to provider request. asking if order can be changed to reflect this? Last 2 Encounter Wt Readings: Date: Wt: 09/12/2021 68.5 kg (151 lb) 06/15/2021 72.6 kg (160 lb) Previous labs/tests for medication: Diabetes: Hemoglobin A1C (%) Date Value 09/07/2021 9.3 06/09/2021 8.9 03/09/2021 8.4 Please advise. Thank you. Princess Maharaj RN documented in this encounterSumma Health06-04-2022 Miscellaneous Notes* Telephone Encounter - Alivia Roblero Ma - 09/30/2021 8:23 AM EDT Patient notified. * Telephone Encounter - Felix Bill MD - 09/29/2021 6:33 PM EDT Patient's request for medication is as follows Signed Prescriptions Disp Refills glipiZIDE (GLUCOTROL XL) 5 mg 24 hr tablet 30 tablet 2 Sig: Take 1 tablet by mouth daily with breakfast. Authorizing Provider: FELIX BILL Order entered - please phone pharmacy and notify patient. Felix Bill MD * Telephone Encounter - Sanjuanita Diego LPN - 09/29/2021 8:03 AM EDT Lilian, calling and states has an update on pt. Pt has been doing what has been asked of him due to the high A1C. dropped off earlier a 2 week log. Pt's numbers are still not going down and heis loosing weight. He is down to 142#. He is eating 40 to 50 carbs for meals and his numbers are inthe 200s and 300s. states concerned with the weight loss and checking to see what you are going to recommend pt do. states it was discussed to put pt back on Glimepiride. Pt is taking Farxiga in the am and pm he is taking his Lantus 20 units. Please advise patient. will be unavailable this am. Sanjuanita Diego LPN documented in this encounterSumma Health06-01-2022 Miscellaneous Notes* Telephone Encounter - Giselle Robertson LPN - 09/27/2021 12:16 PM EDT Pt brought in 2 weeks of diet plan. pcp has reviewed this. Nothing else to do. documented in this encounterSumma Health05-17-2022 Instructions* Patient Instructions* Felix Bill MD - 09/12/2021 10:14 AM EDT Message in 1 month if glucoses improving. documented in this encounterSumma Health05-17-2022 History of Present illness Narrative* Felix Bill MD - 09/12/2021 9:52 AM EDT This note was created using [employer]. Subjective Vidal Kay was here with his spouse. He stopped having 2nd servings. He was watching his diet more and had lost weight. His diabetes mellitus was still labile, and A1C was still elevating. Farxiga was tolerated with no side effects. His insurance denied coverage for CGM. He saw Dr. Torres in May and his valvular heart disease was being monitored. Review of Systems Constitutional: Negative. Respiratory: Negative. Cardiovascular: Negative. Endocrine: Negative. ACTIVE PROBLEM LIST Ulcerative Colitis (Hcc) Personal History of Tobacco Use, Presenting Hazards to Health Anemia, Unspecified Personal history of colonic polyps Mitral Regurgitation Hypertension Hyperlipidemia Dm Type 2, Uncontrolled, With Neuropathy Primary Osteoarthritis of Right Knee Aortic Stenosis, Moderate Current Outpatient Medications Medication Sig dapagliflozin (FARXIGA) 10 mg tablet Take 1 tablet by mouth daily with breakfast. blood sugar diagnostic (BLOOD GLUCOSE TEST) test strip TEST BLOOD SUGAR 2 TIMES PER DAY. DX: E11.40. INSULIN DEP: Yes ramipril (ALTACE) 5 mg capsule Take 1 capsule by mouth once daily. insulin glargine (LANTUS SOLOSTAR U-100 INSULIN) 100 unit/mL (3 mL) Inject 20 Units subcutaneously daily at bedtime. Mesalamine (LIALDA) 1.2 gram EC tablet Take 2 tablets by mouth once daily. Per Dr. Aguilar Friend. insulin needles, DISPOSABLE, (PEN NEEDLE) 31 gauge x 5/16 Use one needle for each dose Lancets lancets LANCETS FOR GLUCOSE METER. TEST 2 TIMES DAILY. E11.40 VITAMIN C 1,000 MG TAB Take one(1) tablet daily. GLUCOSAMINE CHONDROITIN MAXSTR 500 MG-400 MG CAP Take one(1) tablet daily. MULTIVITAMIN TAB Take one(1) tablet daily. No current facility-administered medications for this visit. Objective BP 124/62 (BP Site: Right Arm, BP Position: Sitting, BP Cuff Size: Large Adult) Pulse 68 Temp 36.5 C (97.7 F) (Temporal Artery) Resp 12 Wt 68.5 kg (151 lb) BMI 25.13 kg/m Physical Exam Constitutional: Appearance: He is not ill-appearing. Pulmonary: Effort: Pulmonary effort is normal. Neurological: Mental Status: He is alert. Component Latest Ref Rng & Units 09/07/2021 Glucose 74 - 99 mg/dL 86 BUN 9 - 24 mg/dL 23 Creatinine 0.73 - 1.22 mg/dL 0.82 Sodium 136 - 144 mmol/L 138 Potassium 3.7 - 5.1 mmol/L 4.2 Chloride 97 - 105 mmol/L 100 CO2 22 - 30 mmol/L 28 Anion Gap 9 - 18 mmol/L 10 Calcium 8.5 - 10.2 mg/dL 10.0 eGFR >=60 mL/min/1.73m 91 Hemoglobin A1C 4.3 - 5.6 % 9.3 (H) Estimated Average Glucose mg/dL 220 Glucose meter data or log was reviewed for the past month. Range: 89-209. Average: n/a. Patient wastesting BID to TID. Higher frequency of testing needed: yes. Reason: medication adjustment, uncontrolled DM, labile blood sugars. . Assessment and Plan 1. Diabetes mellitus type 2 with neurological manifestations (HCC) - ICD9: 250.60, ICD10: E11.49 (primary diagnosis) worsening control - Continue current medications - CONSULT TO NUTRITION THERAPY - Goals reviewed fasting less than 130, 2 hours postmeal less than 180. He is off target with post meal glucoses. - If goals not being met in 4 weeks, call or message and we will start GLIPIZIDE ER. 2. Primary hypertension - ICD9: 401.9, ICD10: I10 - good control - Continue current medication(s) - Goal of BP <130/80 3. Aortic stenosis, moderate - ICD9: 424.1, ICD10: I35.0 - Monitored by Dr. Torres. 25 minutes was spent, all for discussion. Felix Bill MD documented in this encounterSumma Health05-06-2022 Miscellaneous Notes* Telephone Encounter - Giselle Robertson LPN - 09/01/2021 11:44 AM EDT Last seen pcp 06/15/21. Next appt is 09/12/21. * Telephone Encounter - Alicja Gutierrez Pss - 09/01/2021 11:27 AM EDT Patient has been identified by name and date of : Yes Pending Prescriptions Disp Refills DAPAGLIFLOZIN 10 MG TABLET 90 tablet 3 Sig: Take 1 tablet by mouth daily with breakfast. PRUDENCIO: No RX INSTRUCTIONS: Patient is changing the pharmacy to [facility], due to the cost. Please send today. Patient aware RX escripted to mail away pharmacy. No need to notify patient. Alicja Gutierrez Pss documented in this encounterSumma Health04-25-2022 Miscellaneous Notes* Telephone Encounter - Nancy Farooq LPN - 08/21/2021 2:06 PM EDT Patient has been identified by name and date of : Yes Patient phones for refill(s): Pending Prescriptions Disp Refills BLOOD GLUCOSE TEST STRIPS 200 Strip 3 Sig: TEST BLOOD SUGAR 2 TIMES PER DAY. DX: E11.40. INSULIN DEP: Yes PRUDENCIO: No Date of last office visit in primary care: 06/15/2021 3 month follow-up: 09/12/2021 Last 2 Encounter Wt Readings: Date: Wt: 06/15/2021 72.6 kg (160 lb) 03/16/2021 74.8 kg (165 lb) Previous labs/tests for medication: Diabetes: Hemoglobin A1C (%) Date Value 06/09/2021 8.9 03/09/2021 8.4 Please advise. Thank you. Nancy Farooq LPN * Telephone Encounter - Yary Desir Pss - 08/21/2021 1:56 PM EDT Pharmacy verified in Epic Patient has been identified by name and date of : Yes Patient aware RX will be sent to pharmacy. No need to notify patient. Spouse phones for refill(s): Pending Prescriptions Disp Refills BLOOD GLUCOSE TEST STRIPS 200 Strip 3 Sig: TEST BLOOD SUGAR 2 TIMES PER DAY. DX: E11.40. INSULIN DEP: Yes PRUDENCIO: No Date of last office visit : 06/15/2021 Date of next office visit : 09/12/2021 Last 2 Encounter Wt Readings: Date: Wt: 06/15/2021 72.6 kg (160 lb) 03/16/2021 74.8 kg (165 lb) Please advise. Yary Desir Pss documented in this encounterSumma Health08-26-2021 Miscellaneous Notes* Telephone Encounter - Claude Casey MD - 12/22/2020 2:07 PM EDT Chio Francois, I hope you are doing well. As you know I am down here in [place]. I am unable to renew this man's prescription as I am out of state. He will need to establish care with a new conveyor feeder. He can choose either Dr. Quintero or he can go with Meg or Debbie * Telephone Encounter - Priscila Tabares MA - 12/22/2020 1:53 PM EDT Message sent to pt to schedule. Priscila Tabares MA * Telephone Encounter - Priscila Tabares MA - 12/22/2020 12:51 PM EDT Piero: 09/23/2019( Dr. Casey) Nov: no future appointments Plan: Add Canasa suppositories to his already existing Azulfidine of 3 pills twice a day Call office in 2 to 3 weeks to describe his status at that time * Telephone Encounter - Claude Velazco - 12/22/2020 9:17 AM EDT Patient has been identified by name and date of : Yes Pending Prescriptions Disp Refills SULFASALAZINE 500 MG TABLET 540 tablet 1 Sig: Take 3 tablets by mouth twice daily. PRUDENCIO: No RX INSTRUCTIONS: Patient requesting a call when RX is approved and sent to the pharmacy. Please call patient at: home Claude Velazco documented in this encounterSumma Health06-24-2016 History of Past illness Narrative* Problem Noted Date Resolved Date Uncontrolled type 2 diabetes mellitus without complication, with long-term current use of insulin 10/21/2015 03/19/2016 DM (diabetes mellitus), type 2, uncontrolled 10/21/2015 ERECTILE DYSFUNCTION 01/27/2007 01/28/2018 BPH without obstruction/lower urinary tract symp toms 07/31/2006 03/19/2016 Hemorrhage of gastrointestinal tract, unspecifie d 02/28/2006 03/19/2016 Hypertrophy of prostate with out urinary obstruction and other lower urinary tract symptoms (LUTS) 08/06/2005 03/19/2016 Type II or unspecified type diabetes mellitus without mention of complication, not stated as uncontrolled HYPERLIPIDEMIA NEC/NOS 5 documented as of this encounter (statuses as of 08/21/2021) [facility]-24-[facility] History of Past illness Narrative* Problem Noted Date Resolved Date Uncontrolled type 2 diabetes mellitus without complication, with long-term current use of insulin 10/21/2015 03/19/2016 DM (diabetes mellitus), type 2, uncontrolled 10/21/2015 ERECTILE DYSFUNCTION 01/27/2007 01/28/2018 BPH without obstruction/lower urinary tract symp toms 07/31/2006 03/19/2016 Hemorrhage of gastrointestinal tract, unspecifie d 02/28/2006 03/19/2016 Hypertrophy of prostate with out urinary obstruction and other lower urinary tract symptoms (LUTS) 08/06/2005 03/19/2016 Type II or unspecified type diabetes mellitus without mention of complication, not stated as uncontrolled HYPERLIPIDEMIA NEC/NOS 5 documented as of this encounter (statuses as of 09/01/2021) [facility] History of Past illness Narrative* Problem Noted Date Resolved Date Uncontrolled type 2 diabetes mellitus without complication, with long-term current use of insulin 10/21/2015 03/19/2016 DM (diabetes mellitus), type 2, uncontrolled 10/21/2015 ERECTILE DYSFUNCTION 01/27/2007 01/28/2018 BPH without obstruction/lower urinary tract symp toms 07/31/2006 03/19/2016 Hemorrhage of gastrointestinal tract, unspecifie d 02/28/2006 03/19/2016 Hypertrophy of prostate with out urinary obstruction and other lower urinary tract symptoms (LUTS) 08/06/2005 03/19/2016 Type II or unspecified type diabetes mellitus without mention of complication, not stated as uncontrolled HYPERLIPIDEMIA NEC/NOS 5 documented as of this encounter (statuses as of 09/13/2021) [facility] of Past illness Narrative* Problem Noted Date Resolved Date Uncontrolled type 2 diabetes mellitus without complication, with long-term current use of insulin 10/21/2015 03/19/2016 DM (diabetes mellitus), type 2, uncontrolled 10/21/2015 ERECTILE DYSFUNCTION 01/27/2007 01/28/2018 BPH without obstruction/lower urinary tract symp toms 07/31/2006 03/19/2016 Hemorrhage of gastrointestinal tract, unspecifie d 02/28/2006 03/19/2016 Hypertrophy of prostate with out urinary obstruction and other lower urinary tract symptoms (LUTS) 08/06/2005 03/19/2016 Type II or unspecified type diabetes mellitus without mention of complication, not stated as uncontrolled HYPERLIPIDEMIA NEC/NOS 5 documented as of this encounter (statuses as of 09/14/2021) [facility] of Past illness Narrative* Problem Noted Date Resolved Date Uncontrolled type 2 diabetes mellitus without complication, with long-term current use of insulin 10/21/2015 03/19/2016 DM (diabetes mellitus), type 2, uncontrolled 10/21/2015 ERECTILE DYSFUNCTION 01/27/2007 01/28/2018 BPH without obstruction/lower urinary tract symp toms 07/31/2006 03/19/2016 Hemorrhage of gastrointestinal tract, unspecifie d 02/28/2006 03/19/2016 Hypertrophy of prostate with out urinary obstruction and other lower urinary tract symptoms (LUTS) 08/06/2005 03/19/2016 Type II or unspecified type diabetes mellitus without mention of complication, not stated as uncontrolled HYPERLIPIDEMIA NEC/NOS 5 documented as of this encounter (statuses as of 09/27/2021) [facility] History of Past illness Narrative* Problem Noted Date Resolved Date Uncontrolled type 2 diabetes mellitus without complication, with long-term current use of insulin 10/21/2015 03/19/2016 DM (diabetes mellitus), type 2, uncontrolled 10/21/2015 ERECTILE DYSFUNCTION 01/27/2007 01/28/2018 BPH without obstruction/lower urinary tract symp toms 07/31/2006 03/19/2016 Hemorrhage of gastrointestinal tract, unspecifie d 02/28/2006 03/19/2016 Hypertrophy of prostate with out urinary obstruction and other lower urinary tract symptoms (LUTS) 08/06/2005 03/19/2016 Type II or unspecified type diabetes mellitus without mention of complication, not stated as uncontrolled HYPERLIPIDEMIA NEC/NOS 5 documented as of this encounter (statuses as of 09/30/2021) [facility] of Past illness Narrative* Problem Noted Date Resolved Date Uncontrolled type 2 diabetes mellitus without complication, with long-term current use of insulin 10/21/2015 03/19/2016 DM (diabetes mellitus), type 2, uncontrolled 10/21/2015 ERECTILE DYSFUNCTION 01/27/2007 01/28/2018 BPH without obstruction/lower urinary tract symp toms 07/31/2006 03/19/2016 Hemorrhage of gastrointestinal tract, unspecifie d 02/28/2006 03/19/2016 Hypertrophy of prostate with out urinary obstruction and other lower urinary tract symptoms (LUTS) 08/06/2005 03/19/2016 Type II or unspecified type diabetes mellitus without mention of complication, not stated as uncontrolled HYPERLIPIDEMIA NEC/NOS 5 documented as of this encounter (statuses as of 10/04/2021) [facility] of [facility] illness Narrative* Problem Noted Date Resolved Date Uncontrolled type 2 diabetes mellitus without complication, with long-term current use of insulin 10/21/2015 03/19/2016 DM (diabetes mellitus), type 2, uncontrolled 10/21/2015 ERECTILE DYSFUNCTION 01/27/2007 01/28/2018 BPH without obstruction/lower urinary tract symp toms 07/31/2006 03/19/2016 Hemorrhage of gastrointestinal tract, unspecifie d 02/28/2006 03/19/2016 Hypertrophy of prostate with out urinary obstruction and other lower urinary tract symptoms (LUTS) 08/06/2005 03/19/2016 Type II or unspecified type diabetes mellitus without mention of complication, not stated as uncontrolled HYPERLIPIDEMIA NEC/NOS 5 documented as of this encounter (statuses as of 10/23/2021) [facility] of [facility] illness Narrative* Problem Noted Date Resolved Date Uncontrolled type 2 diabetes mellitus without complication, with long-term current use of insulin 10/21/2015 03/19/2016 DM (diabetes mellitus), type 2, uncontrolled 10/21/2015 ERECTILE DYSFUNCTION 01/27/2007 01/28/2018 BPH without obstruction/lower urinary tract symp toms 07/31/2006 03/19/2016 Hemorrhage of gastrointestinal tract, unspecifie d 02/28/2006 03/19/2016 Hypertrophy of prostate with out urinary obstruction and other lower urinary tract symptoms (LUTS) 08/06/2005 03/19/2016 Type II or unspecified type diabetes mellitus without mention of complication, not stated as uncontrolled HYPERLIPIDEMIA NEC/NOS 5 documented as of this encounter (statuses as of 11/01/2021) [facility] of [facility] illness Narrative* Problem Noted Date Resolved Date Uncontrolled type 2 diabetes mellitus without complication, with long-term current use of insulin 10/21/2015 03/19/2016 DM (diabetes mellitus), type 2, uncontrolled 10/21/2015 ERECTILE DYSFUNCTION 01/27/2007 01/28/2018 BPH without obstruction/lower urinary tract symp toms 07/31/2006 03/19/2016 Hemorrhage of gastrointestinal tract, unspecifie d 02/28/2006 03/19/2016 Hypertrophy of prostate with out urinary obstruction and other lower urinary tract symptoms (LUTS) 08/06/2005 03/19/2016 Type II or unspecified type diabetes mellitus without mention of complication, not stated as uncontrolled HYPERLIPIDEMIA NEC/NOS 5 documented as of this encounter (statuses as of 11/07/2021) [facility] History of Past illness Narrative* Problem Noted Date Resolved Date Uncontrolled type 2 diabetes mellitus without complication, with long-term current use of insulin 10/21/2015 03/19/2016 DM (diabetes mellitus), type 2, uncontrolled 10/21/2015 ERECTILE DYSFUNCTION 01/27/2007 01/28/2018 BPH without obstruction/lower urinary tract symp toms 07/31/2006 03/19/2016 Hemorrhage of gastrointestinal tract, unspecifie d 02/28/2006 03/19/2016 Hypertrophy of prostate with out urinary obstruction and other lower urinary tract symptoms (LUTS) 08/06/2005 03/19/2016 Type II or unspecified type diabetes mellitus without mention of complication, not stated as uncontrolled HYPERLIPIDEMIA NEC/NOS 5 documented as of this encounter (statuses as of 12/15/2021) [facility] History of Past illness Narrative* Problem Noted Date Resolved Date Uncontrolled type 2 diabetes mellitus without complication, with long-term current use of insulin 10/21/2015 03/19/2016 DM (diabetes mellitus), type 2, uncontrolled 10/21/2015 ERECTILE DYSFUNCTION 01/27/2007 01/28/2018 BPH without obstruction/lower urinary tract symp toms 07/31/2006 03/19/2016 Hemorrhage of gastrointestinal tract, unspecifie d 02/28/2006 03/19/2016 Hypertrophy of prostate with out urinary obstruction and other lower urinary tract symptoms (LUTS) 08/06/2005 03/19/2016 Type II or unspecified type diabetes mellitus without mention of complication, not stated as uncontrolled HYPERLIPIDEMIA NEC/NOS 5 documented as of this encounter (statuses as of 12/28/2021) [facility] History of Past illness Narrative* Problem Noted Date Resolved Date Uncontrolled type 2 diabetes mellitus without complication, with long-term current use of insulin 10/21/2015 03/19/2016 DM (diabetes mellitus), type 2, uncontrolled 10/21/2015 ERECTILE DYSFUNCTION 01/27/2007 01/28/2018 BPH without obstruction/lower urinary tract symp toms 07/31/2006 03/19/2016 Hemorrhage of gastrointestinal tract, unspecifie d 02/28/2006 03/19/2016 Hypertrophy of prostate with out urinary obstruction and other lower urinary tract symptoms (LUTS) 08/06/2005 03/19/2016 Type II or unspecified type diabetes mellitus without mention of complication, not stated as uncontrolled HYPERLIPIDEMIA NEC/NOS 5 documented as of this encounter (statuses as of 03/06/2022) [facility] History of Past illness Narrative* Problem Noted Date Resolved Date Uncontrolled type 2 diabetes mellitus without complication, with long-term current use of insulin 10/21/2015 03/19/2016 DM (diabetes mellitus), type 2, uncontrolled 10/21/2015 ERECTILE DYSFUNCTION 01/27/2007 01/28/2018 BPH without obstruction/lower urinary tract symp toms 07/31/2006 03/19/2016 Hemorrhage of gastrointestinal tract, unspecifie d 02/28/2006 03/19/2016 Hypertrophy of prostate with out urinary obstruction and other lower urinary tract symptoms (LUTS) 08/06/2005 03/19/2016 Type II or unspecified type diabetes mellitus without mention of complication, not stated as uncontrolled HYPERLIPIDEMIA NEC/NOS 5 documented as of this encounter (statuses as of 06/09/2022) [facility] History of Past illness Narrative* Problem Noted Date Resolved Date Uncontrolled type 2 diabetes mellitus without complication, with long-term current use of insulin 10/21/2015 03/19/2016 DM (diabetes mellitus), type 2, uncontrolled 10/21/2015 ERECTILE DYSFUNCTION 01/27/2007 01/28/2018 BPH without obstruction/lower urinary tract symp toms 07/31/2006 03/19/2016 Hemorrhage of gastrointestinal tract, unspecifie d 02/28/2006 03/19/2016 Hypertrophy of prostate with out urinary obstruction and other lower urinary tract symptoms (LUTS) 08/06/2005 03/19/2016 Type II or unspecified type diabetes mellitus without mention of complication, not stated as uncontrolled HYPERLIPIDEMIA NEC/NOS 5 documented as of this encounter (statuses as of 06/14/2022) [facility] History of Past illness Narrative* Problem Noted Date Resolved Date Uncontrolled type 2 diabetes mellitus without complication, with long-term current use of insulin 10/21/2015 03/19/2016 DM (diabetes mellitus), type 2, uncontrolled 10/21/2015 ERECTILE DYSFUNCTION 01/27/2007 01/28/2018 BPH without obstruction/lower urinary tract symp toms 07/31/2006 03/19/2016 Hemorrhage of gastrointestinal tract, unspecifie d 02/28/2006 03/19/2016 Hypertrophy of prostate with out urinary obstruction and other lower urinary tract symptoms (LUTS) 08/06/2005 03/19/2016 Type II or unspecified type diabetes mellitus without mention of complication, not stated as uncontrolled HYPERLIPIDEMIA NEC/NOS 5 documented as of this encounter (statuses as of 07/17/2022) [facility] History of Past illness Narrative* Problem Noted Date Resolved Date Uncontrolled type 2 diabetes mellitus without complication, with long-term current use of insulin 10/21/2015 03/19/2016 DM (diabetes mellitus), type 2, uncontrolled 10/21/2015 ERECTILE DYSFUNCTION 01/27/2007 01/28/2018 BPH without obstruction/lower urinary tract symp toms 07/31/2006 03/19/2016 Hemorrhage of gastrointestinal tract, unspecifie d 02/28/2006 03/19/2016 Hypertrophy of prostate with out urinary obstruction and other lower urinary tract symptoms (LUTS) 08/06/2005 03/19/2016 Type II or unspecified type diabetes mellitus without mention of complication, not stated as uncontrolled HYPERLIPIDEMIA NEC/NOS 5 documented as of this encounter (statuses as of 08/27/2022) [facility] History of Past illness Narrative* Problem Noted Date Resolved Date Uncontrolled type 2 diabetes mellitus without complication, with long-term current use of insulin 10/21/2015 03/19/2016 DM (diabetes mellitus), type 2, uncontrolled 10/21/2015 ERECTILE DYSFUNCTION 01/27/2007 01/28/2018 BPH without obstruction/lower urinary tract symp toms 07/31/2006 03/19/2016 Hemorrhage of gastrointestinal tract, unspecifie d 02/28/2006 03/19/2016 Hypertrophy of prostate with out urinary obstruction and other lower urinary tract symptoms (LUTS) 08/06/2005 03/19/2016 Type II or unspecified type diabetes mellitus without mention of complication, not stated as uncontrolled HYPERLIPIDEMIA NEC/NOS 5 documented as of this encounter (statuses as of 08/28/2022) [facility] History of Past illness Narrative* Problem Noted Date Resolved Date Uncontrolled type 2 diabetes mellitus without complication, with long-term current use of insulin 10/21/2015 03/19/2016 DM (diabetes mellitus), type 2, uncontrolled 10/21/2015 ERECTILE DYSFUNCTION 01/27/2007 01/28/2018 BPH without obstruction/lower urinary tract symp toms 07/31/2006 03/19/2016 Hemorrhage of gastrointestinal tract, unspecifie d 02/28/2006 03/19/2016 Hypertrophy of prostate with out urinary obstruction and other lower urinary tract symptoms (LUTS) 08/06/2005 03/19/2016 Type II or unspecified type diabetes mellitus without mention of complication, not stated as uncontrolled HYPERLIPIDEMIA NEC/NOS 5 documented as of this encounter (statuses as of 10/10/2022) [facility] History of Past illness Narrative* Problem Noted Date Resolved Date Uncontrolled type 2 diabetes mellitus without complication, with long-term current use of insulin 10/21/2015 03/19/2016 DM (diabetes mellitus), type 2, uncontrolled 10/21/2015 ERECTILE DYSFUNCTION 01/27/2007 01/28/2018 BPH without obstruction/lower urinary tract symp toms 07/31/2006 03/19/2016 Hemorrhage of gastrointestinal tract, unspecifie d 02/28/2006 03/19/2016 Hypertrophy of prostate with out urinary obstruction and other lower urinary tract symptoms (LUTS) 08/06/2005 03/19/2016 Type II or unspecified type diabetes mellitus without mention of complication, not stated as uncontrolled HYPERLIPIDEMIA NEC/NOS 5 documented as of this encounter (statuses as of 10/12/2022) [facility] History of Past illness Narrative* Problem Noted Date Resolved Date Uncontrolled type 2 diabetes mellitus without complication, with long-term current use of insulin 10/21/2015 03/19/2016 DM (diabetes mellitus), type 2, uncontrolled 10/21/2015 ERECTILE DYSFUNCTION 01/27/2007 01/28/2018 BPH without obstruction/lower urinary tract symp toms 07/31/2006 03/19/2016 Hemorrhage of gastrointestinal tract, unspecifie d 02/28/2006 03/19/2016 Hypertrophy of prostate with out urinary obstruction and other lower urinary tract symptoms (LUTS) 08/06/2005 03/19/2016 Type II or unspecified type diabetes mellitus without mention of complication, not stated as uncontrolled HYPERLIPIDEMIA NEC/NOS 5 documented as of this encounter (statuses as of 10/17/2022) [facility] History of Past illness Narrative* Problem Noted Date Resolved Date Uncontrolled type 2 diabetes mellitus without complication, with long-term current use of insulin 10/21/2015 03/19/2016 DM (diabetes mellitus), type 2, uncontrolled 10/21/2015 ERECTILE DYSFUNCTION 01/27/2007 01/28/2018 BPH without obstruction/lower urinary tract symp toms 07/31/2006 03/19/2016 Hemorrhage of gastrointestinal tract, unspecifie d 02/28/2006 03/19/2016 Hypertrophy of prostate with out urinary obstruction and other lower urinary tract symptoms (LUTS) 08/06/2005 03/19/2016 Type II or unspecified type diabetes mellitus without mention of complication, not stated as uncontrolled HYPERLIPIDEMIA NEC/NOS 5 documented as of this encounter (statuses as of 10/30/2022) [facility] History of Past illness Narrative* Problem Noted Date Diagnosed Date Resolved Date Uncontrolled type 2 diabetes mellitus without complication, with long-term current use of insulin 10/21/2015 03/19/2016 DM (diabetes mellitus), type 2, uncontrolled 4 10/21/2015 ERECTILE DYSFUNCTION 01/27/2007 018 BPH without obstruction/lowe r urinary tract symptoms 07/31/2006 03/19/2016 Hemorrhage of gastrointestin al tract, unspecified 02/28/2006 03/19/2016 Hypertrophy of prostate with out urinary obstruction and other lower urinary tract symptoms (LUTS) 08/06/2005 03/19/2016 Type II or unspecified type diabetes mellitus without mention of complication, not stated as uncontrolled 01/11/2014 HYPERLIPIDEMIA NEC/NOS 03/17 documented as of this encounter (statuses as of 11/14/2022) [facility] History of Past illness Narrative* Problem Noted Date Diagnosed Date Resolved Date Uncontrolled type 2 diabetes mellitus without complication, with long-term current use of insulin 10/21/2015 03/19/2016 DM (diabetes mellitus), type 2, uncontrolled 4 10/21/2015 ERECTILE DYSFUNCTION 01/27/2007 018 BPH without obstruction/lowe r urinary tract symptoms 07/31/2006 03/19/2016 Hemorrhage of gastrointestin al tract, unspecified 02/28/2006 03/19/2016 Hypertrophy of prostate with out urinary obstruction and other lower urinary tract symptoms (LUTS) 08/06/2005 03/19/2016 Type II or unspecified type diabetes mellitus without mention of complication, not stated as uncontrolled 01/11/2014 HYPERLIPIDEMIA NEC/NOS 03/17 documented as of this encounter (statuses as of 11/27/2022) [facility] History of Past illness Narrative* Problem Noted Date Diagnosed Date Resolved Date Uncontrolled type 2 diabetes mellitus without complication, with long-term current use of insulin 10/21/2015 03/19/2016 DM (diabetes mellitus), type 2, uncontrolled 4 10/21/2015 ERECTILE DYSFUNCTION 01/27/2007 018 BPH without obstruction/lowe r urinary tract symptoms 07/31/2006 03/19/2016 Hemorrhage of gastrointestin al tract, unspecified 02/28/2006 03/19/2016 Hypertrophy of prostate with out urinary obstruction and other lower urinary tract symptoms (LUTS) 08/06/2005 03/19/2016 Type II or unspecified type diabetes mellitus without mention of complication, not stated as uncontrolled 01/11/2014 HYPERLIPIDEMIA NEC/NOS 03/17 documented as of this encounter (statuses as of 12/18/2022) [facility] History of Past illness Narrative* Problem Noted Date Diagnosed Date Resolved Date Uncontrolled type 2 diabetes mellitus without complication, with long-term current use of insulin 10/21/2015 03/19/2016 DM (diabetes mellitus), type 2, uncontrolled 4 10/21/2015 ERECTILE DYSFUNCTION 01/27/2007 018 BPH without obstruction/lowe r urinary tract symptoms 07/31/2006 03/19/2016 Hemorrhage of gastrointestin al tract, unspecified 02/28/2006 03/19/2016 Hypertrophy of prostate with out urinary obstruction and other lower urinary tract symptoms (LUTS) 08/06/2005 03/19/2016 Type II or unspecified type diabetes mellitus without mention of complication, not stated as uncontrolled 01/11/2014 HYPERLIPIDEMIA NEC/NOS 03/17 documented as of this encounter (statuses as of 12/19/2022) [facility] History of Past illness Narrative* Problem Noted Date Diagnosed Date Resolved Date Uncontrolled type 2 diabetes mellitus without complication, with long-term current use of insulin 10/21/2015 03/19/2016 DM (diabetes mellitus), type 2, uncontrolled 4 10/21/2015 ERECTILE DYSFUNCTION 01/27/2007 018 BPH without obstruction/lowe r urinary tract symptoms 07/31/2006 03/19/2016 Hemorrhage of gastrointestin al tract, unspecified 02/28/2006 03/19/2016 Hypertrophy of prostate with out urinary obstruction and other lower urinary tract symptoms (LUTS) 08/06/2005 03/19/2016 Type II or unspecified type diabetes mellitus without mention of complication, not stated as uncontrolled 01/11/2014 HYPERLIPIDEMIA NEC/NOS 03/17 documented as of this encounter (statuses as of 12/22/2022) [facility] History of Past illness Narrative* Problem Noted Date Diagnosed Date Resolved Date Uncontrolled type 2 diabetes mellitus without complication, with long-term current use of insulin 10/21/2015 03/19/2016 DM (diabetes mellitus), type 2, uncontrolled 4 10/21/2015 ERECTILE DYSFUNCTION 01/27/2007 018 BPH without obstruction/lowe r urinary tract symptoms 07/31/2006 03/19/2016 Hemorrhage of gastrointestin al tract, unspecified 02/28/2006 03/19/2016 Hypertrophy of prostate with out urinary obstruction and other lower urinary tract symptoms (LUTS) 08/06/2005 03/19/2016 Type II or unspecified type diabetes mellitus without mention of complication, not stated as uncontrolled 01/11/2014 HYPERLIPIDEMIA NEC/NOS 03/17 documented as of this encounter (statuses as of 12/26/2022) [facility] History of Past illness Narrative* Problem Noted Date Diagnosed Date Resolved Date Uncontrolled type 2 diabetes mellitus without complication, with long-term current use of insulin 10/21/2015 03/19/2016 DM (diabetes mellitus), type 2, uncontrolled 4 10/21/2015 ERECTILE DYSFUNCTION 01/27/2007 018 BPH without obstruction/lowe r urinary tract symptoms 07/31/2006 03/19/2016 Hemorrhage of gastrointestin al tract, unspecified 02/28/2006 03/19/2016 Hypertrophy of prostate with out urinary obstruction and other lower urinary tract symptoms (LUTS) 08/06/2005 03/19/2016 Type II or unspecified type diabetes mellitus without mention of complication, not stated as uncontrolled 01/11/2014 HYPERLIPIDEMIA NEC/NOS 03/17 documented as of this encounter (statuses as of 12/27/2022) [facility] History of Past illness Narrative* Problem Noted Date Diagnosed Date Resolved Date Uncontrolled type 2 diabetes mellitus without complication, with long-term current use of insulin 10/21/2015 03/19/2016 DM (diabetes mellitus), type 2, uncontrolled 4 10/21/2015 ERECTILE DYSFUNCTION 01/27/2007 018 BPH without obstruction/lowe r urinary tract symptoms 07/31/2006 03/19/2016 Hemorrhage of gastrointestin al tract, unspecified 02/28/2006 03/19/2016 Hypertrophy of prostate with out urinary obstruction and other lower urinary tract symptoms (LUTS) 08/06/2005 03/19/2016 Type II or unspecified type diabetes mellitus without mention of complication, not stated as uncontrolled 01/11/2014 HYPERLIPIDEMIA NEC/NOS 03/17 documented as of this encounter (statuses as of 01/07/2023) [facility] History of Past illness Narrative* Problem Noted Date Diagnosed Date Resolved Date Uncontrolled type 2 diabetes mellitus without complication, with long-term current use of insulin 10/21/2015 03/19/2016 DM (diabetes mellitus), type 2, uncontrolled 4 10/21/2015 ERECTILE DYSFUNCTION 01/27/2007 018 BPH without obstruction/lowe r urinary tract symptoms 07/31/2006 03/19/2016 Hemorrhage of gastrointestin al tract, unspecified 02/28/2006 03/19/2016 Hypertrophy of prostate with out urinary obstruction and other lower urinary tract symptoms (LUTS) 08/06/2005 03/19/2016 Type II or unspecified type diabetes mellitus without mention of complication, not stated as uncontrolled 01/11/2014 HYPERLIPIDEMIA NEC/NOS 03/17 documented as of this encounter (statuses as of 01/10/2023) [facility] History of Past illness Narrative* Problem Noted Date Diagnosed Date Resolved Date Uncontrolled type 2 diabetes mellitus without complication, with long-term current use of insulin 10/21/2015 03/19/2016 DM (diabetes mellitus), type 2, uncontrolled 4 10/21/2015 ERECTILE DYSFUNCTION 01/27/2007 018 BPH without obstruction/lowe r urinary tract symptoms 07/31/2006 03/19/2016 Hemorrhage of gastrointestin al tract, unspecified 02/28/2006 03/19/2016 Hypertrophy of prostate with out urinary obstruction and other lower urinary tract symptoms (LUTS) 08/06/2005 03/19/2016 Type II or unspecified type diabetes mellitus without mention of complication, not stated as uncontrolled 01/11/2014 HYPERLIPIDEMIA NEC/NOS 03/17 documented as of this encounter (statuses as of 01/10/2023) [facility] History of Past illness Narrative* Problem Noted Date Diagnosed Date Resolved Date Uncontrolled type 2 diabetes mellitus without complication, with long-term current use of insulin 10/21/2015 03/19/2016 DM (diabetes mellitus), type 2, uncontrolled 4 10/21/2015 ERECTILE DYSFUNCTION 01/27/2007 018 BPH without obstruction/lowe r urinary tract symptoms 07/31/2006 03/19/2016 Hemorrhage of gastrointestin al tract, unspecified 02/28/2006 03/19/2016 Hypertrophy of prostate with out urinary obstruction and other lower urinary tract symptoms (LUTS) 08/06/2005 03/19/2016 Type II or unspecified type diabetes mellitus without mention of complication, not stated as uncontrolled 01/11/2014 HYPERLIPIDEMIA NEC/NOS 03/17 documented as of this encounter (statuses as of 01/22/2023) [facility] History of Past illness Narrative* Problem Noted Date Diagnosed Date Resolved Date Uncontrolled type 2 diabetes mellitus without complication, with long-term current use of insulin 10/21/2015 03/19/2016 DM (diabetes mellitus), type 2, uncontrolled 4 10/21/2015 ERECTILE DYSFUNCTION 01/27/2007 018 BPH without obstruction/lowe r urinary tract symptoms 07/31/2006 03/19/2016 Hemorrhage of gastrointestin al tract, unspecified 02/28/2006 03/19/2016 Hypertrophy of prostate with out urinary obstruction and other lower urinary tract symptoms (LUTS) 08/06/2005 03/19/2016 Type II or unspecified type diabetes mellitus without mention of complication, not stated as uncontrolled 01/11/2014 HYPERLIPIDEMIA NEC/NOS 03/17 documented as of this encounter (statuses as of 02/06/2023) [facility] History of Past illness Narrative* Problem Noted Date Diagnosed Date Resolved Date Uncontrolled type 2 diabetes mellitus without complication, with long-term current use of insulin 10/21/2015 03/19/2016 DM (diabetes mellitus), type 2, uncontrolled 4 10/21/2015 ERECTILE DYSFUNCTION 01/27/2007 018 BPH without obstruction/lowe r urinary tract symptoms 07/31/2006 03/19/2016 Hemorrhage of gastrointestin al tract, unspecified 02/28/2006 03/19/2016 Hypertrophy of prostate with out urinary obstruction and other lower urinary tract symptoms (LUTS) 08/06/2005 03/19/2016 Type II or unspecified type diabetes mellitus without mention of complication, not stated as uncontrolled 01/11/2014 HYPERLIPIDEMIA NEC/NOS 03/17 documented as of this encounter (statuses as of 02/07/2023) [facility] History of Past illness Narrative* Problem Noted Date Diagnosed Date Resolved Date Uncontrolled type 2 diabetes mellitus without complication, with long-term current use of insulin 10/21/2015 03/19/2016 DM (diabetes mellitus), type 2, uncontrolled 4 10/21/2015 ERECTILE DYSFUNCTION 01/27/2007 018 BPH without obstruction/lowe r urinary tract symptoms 07/31/2006 03/19/2016 Hemorrhage of gastrointestin al tract, unspecified 02/28/2006 03/19/2016 Hypertrophy of prostate with out urinary obstruction and other lower urinary tract symptoms (LUTS) 08/06/2005 03/19/2016 Type II or unspecified type diabetes mellitus without mention of complication, not stated as uncontrolled 01/11/2014 HYPERLIPIDEMIA NEC/NOS 03/17 documented as of this encounter (statuses as of 03/03/2023) [facility] History of Past illness Narrative* Problem Noted Date Diagnosed Date Resolved Date Uncontrolled type 2 diabetes mellitus without complication, with long-term current use of insulin 10/21/2015 03/19/2016 DM (diabetes mellitus), type 2, uncontrolled 4 10/21/2015 ERECTILE DYSFUNCTION 01/27/2007 018 BPH without obstruction/lowe r urinary tract symptoms 07/31/2006 03/19/2016 Hemorrhage of gastrointestin al tract, unspecified 02/28/2006 03/19/2016 Hypertrophy of prostate with out urinary obstruction and other lower urinary tract symptoms (LUTS) 08/06/2005 03/19/2016 Type II or unspecified type diabetes mellitus without mention of complication, not stated as uncontrolled 01/11/2014 HYPERLIPIDEMIA NEC/NOS 03/17 documented as of this encounter (statuses as of 03/03/2023) [facility] History of Past illness Narrative* Problem Noted Date Diagnosed Date Resolved Date Uncontrolled type 2 diabetes mellitus without complication, with long-term current use of insulin 10/21/2015 03/19/2016 DM (diabetes mellitus), type 2, uncontrolled 4 10/21/2015 ERECTILE DYSFUNCTION 01/27/2007 018 BPH without obstruction/lowe r urinary tract symptoms 07/31/2006 03/19/2016 Hemorrhage of gastrointestin al tract, unspecified 02/28/2006 03/19/2016 Hypertrophy of prostate with out urinary obstruction and other lower urinary tract symptoms (LUTS) 08/06/2005 03/19/2016 Type II or unspecified type diabetes mellitus without mention of complication, not stated as uncontrolled 01/11/2014 HYPERLIPIDEMIA NEC/NOS 03/17 documented as of this encounter (statuses as of 03/03/2023) [facility] History of Past illness Narrative* Problem Noted Date Diagnosed Date Resolved Date Uncontrolled type 2 diabetes mellitus without complication, with long-term current use of insulin 10/21/2015 03/19/2016 DM (diabetes mellitus), type 2, uncontrolled 4 10/21/2015 ERECTILE DYSFUNCTION 01/27/2007 018 BPH without obstruction/lowe r urinary tract symptoms 07/31/2006 03/19/2016 Hemorrhage of gastrointestin al tract, unspecified 02/28/2006 03/19/2016 Hypertrophy of prostate with out urinary obstruction and other lower urinary tract symptoms (LUTS) 08/06/2005 03/19/2016 Type II or unspecified type diabetes mellitus without mention of complication, not stated as uncontrolled 01/11/2014 HYPERLIPIDEMIA NEC/NOS 03/17 documented as of this encounter (statuses as of 03/03/2023) [facility] History of Past illness Narrative* Problem Noted Date Diagnosed Date Resolved Date Uncontrolled type 2 diabetes mellitus without complication, with long-term current use of insulin 10/21/2015 03/19/2016 DM (diabetes mellitus), type 2, uncontrolled 4 10/21/2015 ERECTILE DYSFUNCTION 01/27/2007 018 BPH without obstruction/lowe r urinary tract symptoms 07/31/2006 03/19/2016 Hemorrhage of gastrointestin al tract, unspecified 02/28/2006 03/19/2016 Hypertrophy of prostate with out urinary obstruction and other lower urinary tract symptoms (LUTS) 08/06/2005 03/19/2016 Type II or unspecified type diabetes mellitus without mention of complication, not stated as uncontrolled 01/11/2014 HYPERLIPIDEMIA NEC/NOS 03/17 documented as of this encounter (statuses as of 03/15/2023) [facility] History of Past illness Narrative* Problem Noted Date Diagnosed Date Resolved Date Uncontrolled type 2 diabetes mellitus without complication, with long-term current use of insulin 10/21/2015 03/19/2016 DM (diabetes mellitus), type 2, uncontrolled 4 10/21/2015 ERECTILE DYSFUNCTION 01/27/2007 018 BPH without obstruction/lowe r urinary tract symptoms 07/31/2006 03/19/2016 Hemorrhage of gastrointestin al tract, unspecified 02/28/2006 03/19/2016 Hypertrophy of prostate with out urinary obstruction and other lower urinary tract symptoms (LUTS) 08/06/2005 03/19/2016 Type II or unspecified type diabetes mellitus without mention of complication, not stated as uncontrolled 01/11/2014 HYPERLIPIDEMIA NEC/NOS 03/17 documented as of this encounter (statuses as of 03/18/2023) [facility] History of Past illness Narrative* Problem Noted Date Diagnosed Date Resolved Date Uncontrolled type 2 diabetes mellitus without complication, with long-term current use of insulin 10/21/2015 03/19/2016 DM (diabetes mellitus), type 2, uncontrolled 4 10/21/2015 ERECTILE DYSFUNCTION 01/27/2007 018 BPH without obstruction/lowe r urinary tract symptoms 07/31/2006 03/19/2016 Hemorrhage of gastrointestin al tract, unspecified 02/28/2006 03/19/2016 Hypertrophy of prostate with out urinary obstruction and other lower urinary tract symptoms (LUTS) 08/06/2005 03/19/2016 Type II or unspecified type diabetes mellitus without mention of complication, not stated as uncontrolled 01/11/2014 HYPERLIPIDEMIA NEC/NOS 03/17 documented as of this encounter (statuses as of 04/04/2023) [facility] History of Past illness Narrative* Problem Noted Date Diagnosed Date Resolved Date Uncontrolled type 2 diabetes mellitus without complication, with long-term current use of insulin 10/21/2015 03/19/2016 DM (diabetes mellitus), type 2, uncontrolled 4 10/21/2015 ERECTILE DYSFUNCTION 01/27/2007 018 BPH without obstruction/lowe r urinary tract symptoms 07/31/2006 03/19/2016 Hemorrhage of gastrointestin al tract, unspecified 02/28/2006 03/19/2016 Hypertrophy of prostate with out urinary obstruction and other lower urinary tract symptoms (LUTS) 08/06/2005 03/19/2016 Type II or unspecified type diabetes mellitus without mention of complication, not stated as uncontrolled 01/11/2014 HYPERLIPIDEMIA NEC/NOS 03/17 documented as of this encounter (statuses as of 04/04/2023) [facility] History of Past illness Narrative* Problem Noted Date Diagnosed Date Resolved Date Uncontrolled type 2 diabetes mellitus without complication, with long-term current use of insulin 10/21/2015 03/19/2016 DM (diabetes mellitus), type 2, uncontrolled 4 10/21/2015 ERECTILE DYSFUNCTION 01/27/2007 018 BPH without obstruction/lowe r urinary tract symptoms 07/31/2006 03/19/2016 Hemorrhage of gastrointestin al tract, unspecified 02/28/2006 03/19/2016 Hypertrophy of prostate with out urinary obstruction and other lower urinary tract symptoms (LUTS) 08/06/2005 03/19/2016 Type II or unspecified type diabetes mellitus without mention of complication, not stated as uncontrolled 01/11/2014 HYPERLIPIDEMIA NEC/NOS 03/17 documented as of this encounter (statuses as of 05/30/2023) [facility] History of Past illness Narrative* Problem Noted Date Diagnosed Date Resolved Date Uncontrolled type 2 diabetes mellitus without complication, with long-term current use of insulin 10/21/2015 03/19/2016 DM (diabetes mellitus), type 2, uncontrolled 4 10/21/2015 ERECTILE DYSFUNCTION 01/27/2007 018 BPH without obstruction/lowe r urinary tract symptoms 07/31/2006 03/19/2016 Hemorrhage of gastrointestin al tract, unspecified 02/28/2006 03/19/2016 Hypertrophy of prostate with out urinary obstruction and other lower urinary tract symptoms (LUTS) 08/06/2005 03/19/2016 Type II or unspecified type diabetes mellitus without mention of complication, not stated as uncontrolled 01/11/2014 HYPERLIPIDEMIA NEC/NOS 03/17 documented as of this encounter (statuses as of 07/01/2023) [facility] History of Past illness Narrative* Problem Noted Date Diagnosed Date Resolved Date Uncontrolled type 2 diabetes mellitus without complication, with long-term current use of insulin 10/21/2015 03/19/2016 DM (diabetes mellitus), type 2, uncontrolled 4 10/21/2015 ERECTILE DYSFUNCTION 01/27/2007 018 BPH without obstruction/lowe r urinary tract symptoms 07/31/2006 03/19/2016 Hemorrhage of gastrointestin al tract, unspecified 02/28/2006 03/19/2016 Hypertrophy of prostate with out urinary obstruction and other lower urinary tract symptoms (LUTS) 08/06/2005 03/19/2016 Type II or unspecified type diabetes mellitus without mention of complication, not stated as uncontrolled 01/11/2014 HYPERLIPIDEMIA NEC/NOS 03/17 documented as of this encounter (statuses as of 07/03/2023) [facility] History of Past illness Narrative* Problem Noted Date Diagnosed Date Resolved Date Uncontrolled type 2 diabetes mellitus without complication, with long-term current use of insulin 10/21/2015 03/19/2016 DM (diabetes mellitus), type 2, uncontrolled 4 10/21/2015 ERECTILE DYSFUNCTION 01/27/2007 018 BPH without obstruction/lowe r urinary tract symptoms 07/31/2006 03/19/2016 Hemorrhage of gastrointestin al tract, unspecified 02/28/2006 03/19/2016 Hypertrophy of prostate with out urinary obstruction and other lower urinary tract symptoms (LUTS) 08/06/2005 03/19/2016 Type II or unspecified type diabetes mellitus without mention of complication, not stated as uncontrolled 01/11/2014 HYPERLIPIDEMIA NEC/NOS 03/17 documented as of this encounter (statuses as of 07/09/2023) [facility] History of Past illness Narrative* Problem Noted Date Diagnosed Date Resolved Date Uncontrolled type 2 diabetes mellitus without complication, with long-term current use of insulin 10/21/2015 03/19/2016 DM (diabetes mellitus), type 2, uncontrolled 4 10/21/2015 ERECTILE DYSFUNCTION 01/27/2007 018 BPH without obstruction/lowe r urinary tract symptoms 07/31/2006 03/19/2016 Hemorrhage of gastrointestin al tract, unspecified 02/28/2006 03/19/2016 Hypertrophy of prostate with out urinary obstruction and other lower urinary tract symptoms (LUTS) 08/06/2005 03/19/2016 Type II or unspecified type diabetes mellitus without mention of complication, not stated as uncontrolled 01/11/2014 HYPERLIPIDEMIA NEC/NOS 03/17 documented as of this encounter (statuses as of 07/09/2023) [facility] History of Past illness Narrative* Problem Noted Date Diagnosed Date Resolved Date Uncontrolled type 2 diabetes mellitus without complication, with long-term current use of insulin 10/21/2015 03/19/2016 DM (diabetes mellitus), type 2, uncontrolled 4 10/21/2015 ERECTILE DYSFUNCTION 01/27/2007 018 BPH without obstruction/lowe r urinary tract symptoms 07/31/2006 03/19/2016 Hemorrhage of gastrointestin al tract, unspecified 02/28/2006 03/19/2016 Hypertrophy of prostate with out urinary obstruction and other lower urinary tract symptoms (LUTS) 08/06/2005 03/19/2016 Type II or unspecified type diabetes mellitus without mention of complication, not stated as uncontrolled 01/11/2014 HYPERLIPIDEMIA NEC/NOS 03/17 documented as of this encounter (statuses as of 07/16/2023) [facility] History of Past illness Narrative* Problem Noted Date Diagnosed Date Resolved Date Uncontrolled type 2 diabetes mellitus without complication, with long-term current use of insulin 10/21/2015 03/19/2016 DM (diabetes mellitus), type 2, uncontrolled 4 10/21/2015 ERECTILE DYSFUNCTION 01/27/2007 018 BPH without obstruction/lowe r urinary tract symptoms 07/31/2006 03/19/2016 Hemorrhage of gastrointestin al tract, unspecified 02/28/2006 03/19/2016 Hypertrophy of prostate with out urinary obstruction and other lower urinary tract symptoms (LUTS) 08/06/2005 03/19/2016 Type II or unspecified type diabetes mellitus without mention of complication, not stated as uncontrolled 01/11/2014 HYPERLIPIDEMIA NEC/NOS 03/17 documented as of this encounter (statuses as of 07/19/2023) [facility] History of Past illness Narrative* Problem Noted Date Diagnosed Date Resolved Date Uncontrolled type 2 diabetes mellitus without complication, with long-term current use of insulin 10/21/2015 03/19/2016 DM (diabetes mellitus), type 2, uncontrolled 4 10/21/2015 ERECTILE DYSFUNCTION 01/27/2007 018 BPH without obstruction/lowe r urinary tract symptoms 07/31/2006 03/19/2016 Hemorrhage of gastrointestin al tract, unspecified 02/28/2006 03/19/2016 Hypertrophy of prostate with out urinary obstruction and other lower urinary tract symptoms (LUTS) 08/06/2005 03/19/2016 Type II or unspecified type diabetes mellitus without mention of complication, not stated as uncontrolled 01/11/2014 HYPERLIPIDEMIA NEC/NOS 03/17 documented as of this encounter (statuses as of 08/05/2023) [facility] Diagnosis Diabetes mellitus type 2 with neurological manifestations (HCC)- Primary Type II or unspecified type diabetes mellitus with neurological manifestations, not stated as uncontrolled Primary hypertension Unspecified essential hypertension Aortic stenosis, moderate Aortic valve disorders [facility] Diagnosis Essential hypertension Unspecified essential hypertension [facility] Diagnosis Diabetes mellitus type 2 with neurological manifestations (HCC)- Primary Type II or unspecified type diabetes mellitus with neurological manifestations, not stated as uncontrolled [facility]* Diagnosis Dietary counseling- Primary Dietary surveillance and counseling Diabetes mellitus type 2 with neurological manifestations (HCC) Type II or unspecified type diabetes mellitus with neurological manifestations, not stated as uncontrolled [facility] Diagnosis Diabetes mellitus type 2 with neurological manifestations (HCC) Type II or unspecified type diabetes mellitus with neurological manifestations, not stated as uncontrolled [facility] Diagnosis Diabetes mellitus type 2 with neurological manifestations (HCC)- Primary Type II or unspecified type diabetes mellitus with neurological manifestations, not stated as uncontrolled Hyperlipidemia, unspecified hyperlipidemia type Primary hypertension Unspecified essential hypertension [facility]* Diagnosis Diabetes mellitus type 2 with neurological manifestations (HCC)- Primary Type II or unspecified type diabetes mellitus with neurological manifestations, not stated as uncontrolled [facility] Diagnosis Hyperlipidemia, unspecified hyperlipidemia type- Primary Diabetes mellitus type 2 with neurological manifestations (HCC) Type II or unspecified type diabetes mellitus with neurological manifestations, not stated as uncontrolled Primary hypertension Unspecified essential hypertension Anemia, unspecified type Nonrheumatic mitral valve regurgitation [facility]* Diagnosis Diabetes mellitus type 2 with neurological manifestations (HCC)- Primary Type II or unspecified type diabetes mellitus with neurological manifestations, not stated as uncontrolled 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) Primary hypertension Unspecified essential hypertension Aortic stenosis, moderate Aortic valve disorders Hyperlipidemia, unspecified hyperlipidemia type [facility]* Diagnosis Onset Date Resolution Status Essential hypertension acute Mixed hyperlipidemia acute Non-rheumatic mitral regurgitation acute Nonrheumatic aortic (valve) stenosis acute [facility] Work Phone: Evaluation note* Diagnosis Acute cough- Primary Acute conjunctivitis of right eye, unspecified acute conjunctivitis type [facility]* Diagnosis Chest pain, unspecified type- Primary Shortness of breath Elevated d-dimer Abnormal coagulation profile Anemia, unspecified type [facility]* Diagnosis Pneumonia of right lung due to infectious organism, unspecified part of lung- Primary Anemia, unspecified type [facility]* Diagnosis Diabetes mellitus type 2 with neurological manifestations (HCC) Type II or unspecified type diabetes mellitus with neurological manifestations, not stated as uncontrolled [facility] Diagnosis Diabetes mellitus type 2 with neurological manifestations (HCC) Type II or unspecified type diabetes mellitus with neurological manifestations, not stated as uncontrolled [facility] Diagnosis Onset Date Resolution Status Dysplastic polyp of colon ac [place] Ulcerative colitis chronic Congestion of respiratory tract acute Cough acute [facility] Work Phone: Evaluation note* Diagnosis Medicare annual wellness visit, subsequent- Primary Routine general medical examination at a health care facility Anemia, unspecified type Diabetes mellitus type 2 with neurological manifestations (HCC) Type II or unspecified type diabetes mellitus with neurological manifestations, not stated as uncontrolled Hyperlipidemia, unspecified hyperlipidemia type Primary hypertension Unspecified essential hypertension Aortic stenosis, moderate Aortic valve disorders Other proteinuria Hypoalbuminemia Other disorders of plasma protein metabolism Ulcerative pancolitis without complication (HCC) Abnormal weight loss Loss of weight [facility]* Diagnosis Type II diabetes mellitus with manifestations (HCC)- Primary Type II or unspecified type diabetes mellitus with other specified manifestations, not stated as uncontrolled Diabetes mellitus type 2 with neurological manifestations (HCC) Type II or unspecified type diabetes mellitus with neurological manifestations, not stated as uncontrolled [facility]* Diagnosis Monoclonal gammopathy of undetermined significance- Primary Monoclonal paraproteinemia Anemia, unspecified type documented in this encounter [facility] note* Diagnosis Monoclonal gammopathy- Primary Monoclonal paraproteinemia documented in this encounter [facility] note* Diagnosis Poorly controlled type 2 diabetes mellitus (HCC)- Primary Type II or unspecified type diabetes mellitus without mention of complication, not stated as uncontrolled documented in this encounter [facility] note* Diagnosis Monoclonal gammopathy- Primary Monoclonal paraproteinemia Anemia, unspecified type documented in this encounter [facility] note* Diagnosis Lymphoplasmacytic lymphoma (HCC) documented in this encounter [facility] note* Diagnosis Aortic valve stenosis, etiology of cardiac valve disease unspecified- Primary Coronary artery disease involving [place] coronary artery of [place] heart, unspecified whether angina present Nonrheumatic aortic (valve) stenosis Atherosclerotic heart disease of [place] coronary artery without angina pectoris documented in this encounter [facility] note* Diagnosis CAD in [place] artery- Primary Nonrheumatic aortic (valve) stenosis Atherosclerotic heart disease of [place] coronary artery without angina pectoris documented in this encounter [facility] note* Diagnosis CAD in [place] artery- Primary Nonrheumatic aortic (valve) stenosis Atherosclerotic heart disease of [place] coronary artery without angina pectoris documented in this encounter [facility] note* Diagnosis Chest pain, unspecified type Shortness of breath Elevated d-dimer Abnormal coagulation profile documented in this encounter [facility] note* Diagnosis Monoclonal gammopathy Monoclonal paraproteinemia documented in this encounter [facility] note* Diagnosis Other proteinuria documented in this encounter [facility] note* Diagnosis Monoclonal gammopathy Monoclonal paraproteinemia documented in this encounter [facility] note* Diagnosis CAD in [place] artery- Primary CAD in [place] artery Aortic valve stenosis, etiology of cardiac valve disease unspecified Coronary artery disease involving [place] coronary artery of [place] heart, unspecified whether angina present Nonrheumatic aortic (valve) stenosis Atherosclerotic heart disease of [place] coronary artery without angina pectoris documented in this encounter [facility] note* Diagnosis Aortic valve stenosis, etiology of cardiac valve disease unspecified- Primary Coronary artery disease involving [place] coronary artery of [place] heart, unspecified whether angina present documented in this encounter [facility] note* Diagnosis CAD in [place] artery- Primary 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 documented in this encounter [facility] note* Diagnosis Onset Date Resolution Status Essential hypertension acute Mixed hyperlipidemia acute S/P CABG x 2 acute S/P aortic valve replacement [facility] Work Phone: Evaluation note* Diagnosis Onset Date Resolution Status Essential hypertension acute Mixed hyperlipidemia acute S/P CABG x 2 acute S/P aortic valve replacement chronic Polyp of colon acute Ulcerative colitis [facility] Work Phone: Evaluation note* Diagnosis Onset Date Resolution Status Essential hypertension acute Mixed hyperlipidemia acute S/P CABG x 2 acute S/P aortic valve replacement chronic Polyp of colon acute Ulcerative colitis chronic Dysplastic polyp of colon ac [place] Ulcerative colitis chronic Non-specific colitis noneact hetal [facility] Work Phone: Evaluation note* Diagnosis Type 2 diabetes mellitus without complication, with long-term current use of insulin (HCC)- Primary [facility]* Diagnosis Poorly controlled type 2 diabetes mellitus (HCC)- Primary Type II or unspecified type diabetes mellitus without mention of complication, not stated as uncontrolled documented in this encounter [facility] note* Diagnosis Onset Date Resolution Status Essential hypertension acute Mixed hyperlipidemia acute S/P CABG x 2 acute S/P aortic valve replacement chronic Polyp of colon acute Ulcerative colitis chronic Dysplastic polyp of colon ac [place] Ulcerative colitis chronic Non-specific colitis noneact hetal Anemia acute [place]strom macroglobulinemia acute Bilateral carotid bruits acu te Essential hypertension acute Mixed hyperlipidemia acute S/P CABG x 2 acute S/P aortic valve replacement chronic Anemia acute [place] macroglobulinemia acute [facility] Work [facility]* Diagnosis Type 2 diabetes mellitus without complication, with long-term current use of insulin (HCC) documented in this encounter [facility] note* Diagnosis Medicare annual wellness visit, subsequent- Primary Routine general medical examination at a [facility] care facility Screening for depression Encounter for screening examination for other mental health and behavioral disorders Coronary artery disease involving [place] coronary artery of [place] heart without angina pectoris Hyperlipidemia, unspecified hyperlipidemia type Primary hypertension Unspecified essential hypertension Diabetes mellitus type 2 with neurological manifestations (HCC) Type II or unspecified type diabetes mellitus with neurological manifestations, not stated as uncontrolled [place] macroglobulinemia (HCC) Macroglobulinemia Aortic valve replaced Heart valve replaced by other means S/P CABG x 2 Postsurgical aortocoronary bypass status documented in this encounter [facility] note* Diagnosis DIABETES MELLITUS TYPE II-UNCOMPL- Primary Type II or unspecified type diabetes mellitus without mention of complication, not stated as uncontrolled PERS HX TOBACCO USE Personal history of tobacco use, presenting hazards to health HYPERLIPIDEMIA NEC/NOS Other and unspecified hyperlipidemia ULCERATIVE COLITIS NOS Ulcerative colitis, unspecified MITRAL REGURGITATION Mitral valve disorders Primary hypertension Unspecified essential hypertension documented in this encounter [facility] note* Diagnosis DIABETES MELLITUS TYPE II-UNCOMPL- Primary Type II or unspecified type diabetes mellitus without mention of complication, not stated as uncontrolled PERS HX TOBACCO USE Personal history of tobacco use, presenting hazards to health HYPERLIPIDEMIA NEC/NOS Other and unspecified hyperlipidemia ULCERATIVE COLITIS NOS Ulcerative colitis, unspecified MITRAL REGURGITATION Mitral valve disorders Acute cough Shortness of breath documented in this encounter [facility] note* Diagnosis DIABETES MELLITUS TYPE II-UNCOMPL- Primary Type II or unspecified type diabetes mellitus without mention of complication, not stated as uncontrolled PERS HX TOBACCO USE Personal history of tobacco use, presenting hazards to health HYPERLIPIDEMIA NEC/NOS Other and unspecified hyperlipidemia ULCERATIVE COLITIS NOS Ulcerative colitis, unspecified MITRAL REGURGITATION Mitral valve disorders Poorly controlled type 2 diabetes mellitus (HCC)- Primary Type II or unspecified type diabetes mellitus without mention of complication, not stated as uncontrolled documented in this encounter [facility] note* Diagnosis DIABETES MELLITUS TYPE II-UNCOMPL- Primary Type II or unspecified type diabetes mellitus without mention of complication, not stated as uncontrolled PERS HX TOBACCO USE Personal history of tobacco use, presenting hazards to health HYPERLIPIDEMIA NEC/NOS Other and unspecified hyperlipidemia ULCERATIVE COLITIS NOS Ulcerative colitis, unspecified MITRAL REGURGITATION Mitral valve disorders Type 2 diabetes mellitus without complication, with long-term current use of insulin (HCC) [facility]* Diagnosis DIABETES MELLITUS TYPE II-UNCOMPL- Primary Type II or unspecified type diabetes mellitus without mention of complication, not stated as uncontrolled PERS HX TOBACCO USE Personal history of tobacco use, presenting hazards to health HYPERLIPIDEMIA NEC/NOS Other and unspecified hyperlipidemia ULCERATIVE COLITIS NOS Ulcerative colitis, unspecified MITRAL REGURGITATION Mitral valve disorders Other proteinuria- Primary Primary hypertension Unspecified essential hypertension Diabetes mellitus type 2 with neurological manifestations (HCC) Type II or unspecified type diabetes mellitus with neurological manifestations, not stated as uncontrolled Ulcerative pancolitis without complication (HCC) [facility] the chronically ill note* Diagnosis DIABETES MELLITUS TYPE II-UNCOMPL- Primary Type II or unspecified type diabetes mellitus without mention of complication, not stated as uncontrolled PERS HX TOBACCO USE Personal history of tobacco use, presenting hazards to health HYPERLIPIDEMIA NEC/NOS Other and unspecified hyperlipidemia ULCERATIVE COLITIS NOS Ulcerative colitis, unspecified MITRAL REGURGITATION Mitral valve disorders Type 2 diabetes mellitus without complication, with long-term current use of insulin (HCC) [facility] Diagnosis DIABETES MELLITUS TYPE II-UNCOMPL- Primary Type II or unspecified type diabetes mellitus without mention of complication, not stated as uncontrolled PERS HX TOBACCO USE Personal history of tobacco use, presenting hazards to health HYPERLIPIDEMIA NEC/NOS Other and unspecified hyperlipidemia ULCERATIVE COLITIS NOS Ulcerative colitis, unspecified MITRAL REGURGITATION Mitral valve disorders Primary hypertension Unspecified essential hypertension [facility] Diagnosis DIABETES MELLITUS TYPE II-UNCOMPL- Primary Type II or unspecified type diabetes mellitus without mention of complication, not stated as uncontrolled PERS HX TOBACCO USE Personal history of tobacco use, presenting hazards to health HYPERLIPIDEMIA NEC/NOS Other and unspecified hyperlipidemia ULCERATIVE COLITIS NOS Ulcerative colitis, unspecified MITRAL REGURGITATION Mitral valve disorders Herpes zoster without complication- Primary Herpes zoster without mention of complication [facility]* Diagnosis DIABETES MELLITUS TYPE II-UNCOMPL- Primary Type II or unspecified type diabetes mellitus without mention of complication, not stated as uncontrolled PERS HX TOBACCO USE Personal history of tobacco use, presenting hazards to health HYPERLIPIDEMIA NEC/NOS Other and unspecified hyperlipidemia ULCERATIVE COLITIS NOS Ulcerative colitis, unspecified MITRAL REGURGITATION Mitral valve disorders Herpes zoster without complications Herpes zoster without mention of complication documented in this encounter [facility] note* Diagnosis DIABETES MELLITUS TYPE II-UNCOMPL- Primary Type II or unspecified type diabetes mellitus without mention of complication, not stated as uncontrolled PERS HX TOBACCO USE Personal history of tobacco use, presenting hazards to health HYPERLIPIDEMIA NEC/NOS Other and unspecified hyperlipidemia ULCERATIVE COLITIS NOS Ulcerative colitis, unspecified MITRAL REGURGITATION Mitral valve disorders Type 2 diabetes mellitus without complication, with long-term current use of insulin (HCC)- Primary documented in this encounter [facility] for referral (narrative)* Diagnostic Procedure Only (Routine) - Authorized Specialty Diagnoses / Procedures [facility] US IMAGING Diagnoses Other proteinuria Procedures US KIDNEY/BLADDER US RETROPERITONEAL REAL TIME W/IMAGE COMPLETE Felix Bill MD [address] [place] [address] [place] [address] Referral ID Status Reason Start Date Expiration Date Visits Requested Visits Authorized [id number] Authorized Auto-Generat ed Referral 12/18/2022 04/28/2023 1 1 * Consult, Test, Treat (Routine) - Pending Review Specialty Diagnoses / Procedures [facility]erred To Contact Endocrinology Diagnoses Diabetes mellitus type 2 with neurological manifestations (HCC) Procedures CONSULT TO ENDOCRINOLOGY OFFICE/OUTPATIENT [facility] 60-74 MINUTES Felix Bill MD [address] [place] [address] Referral ID Status Reason Start Date Expiration Date Visits Requested Visits Authorized [id number] Pending Review PCP Requested Referral 12/18/2022 12/18/2023 1 1 [facility] for referral (narrative)* Diagnostic Procedure Only (Routine) - Closed Specialty Diagnoses / Procedures [facility] Referred To Contact XR IMAGING Diagnoses Monoclonal gammopathy Procedures XR BONE SURVEY ROUTINE RADIOLOGIC EXAMINATION [place] [address] [place] [address] [place] [address] Referral ID Status Reason Start Date Expiration Date V isits Requested Visits Authorized [id number] Closed Auto-Generate d Referral 12/28/2022 04/28/2023 1 1 [facility] for referral (narrative)* Diagnostic Procedure Only (Routine) - Closed Specialty Diagnoses / Procedures Referred By Contac t Referred To Contact US IMAGING Diagnoses Other proteinuria Procedures US KIDNEY/BLADDER US RETROPERITONEAL REAL TIME W/IMAGE COMPLETE Felix Bill MD [address] [place] [address] [place] [address] Referral ID Status Reason Start Date Expiration Date V isits Requested Visits Authorized [id number] Closed Auto-Generate d Referral 12/18/2022 04/28/2023 1 1 [facility] for referral (narrative)No reason for referral [facility] Work Phone: [facility] for visit Narrative* Diagnostic Procedure Only (Routine) - Closed Specialty Diagnoses / Procedures Referred By Contac t Referred To Contact XR IMAGING Diagnoses Monoclonal gammopathy Procedures XR BONE SURVEY ROUTINE RADIOLOGIC EXAMINATION [place] [address] [place] [address] [place] [address] Referral ID Status Reason Start Date Expiration Date V isits Requested Visits Authorized [id number] Closed Auto-Generate d Referral 12/28/2022 04/28/2023 1 1 [facility] Advance Directives No Advanced Directives Records FoundDocuments on File Type Date Recorded 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 Advance Directive(s) 06/08/2019 8:25 AM Advance Directive(s) 06/30/2018 7:51 AM Documents on File Type Date Recorded 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 Advance Directive(s) 06/08/2019 8:25 AM Advance Directive(s) 06/30/2018 7:51 AM Advance Directive Response Recorded Date/ Time Advance Directives on File Yes 2022 7:17am Name of Medical Power of Phlebotomy Instructor Lilian Eliza February 13, 2023 7:17am Advance Directives Yes February 13, 2023 7:17am Living Will Yes February 13 7:17am Power of Phlebotomy Instructor Yes February 13, 2023 7:17am Documents on File Type Date Recorded 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 Advance Directives and Livin g Will 02/28/2023 5:49 AM Latest Code Status on File Code Status Date Activated Date Inactivated Comments Full Code 02/28/2023 6:27 AM Code Status History Code Status Date Activated Date Inactivated Comments Full Code 02/28/2023 6:27 AM 02/28/2023 6:27 AM Documents on File Type Date Recorded 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 Advance Directives and Livin g Will 02/28/2023 5:49 AM Latest Code Status on File Code Status Date Activated Date Inactivated Comments Full Code 02/28/2023 6:27 AM 03/05/2023 6:31 PM Code Status History Code Status Date Activated Date Inactivated Comments Full Code 02/28/2023 6:27 AM 02/28/2023 6:27 AM Latest Code Status on File Code Status Date Activated Date Inactivated Comments Full Code 02/28/2023 6:27 AM 03/05/2023 6:31 PM Advance Directive Response Recorded Date/ Time Advance Directives on File Yes Octob er 2022 6:17am Name of Medical Power of Phlebotomy Instructor Lilian Kay February 13, 2023 6:17am Advance Directives on File No Decem akhil 2022 10:12am Advance Directives Yes February 13, 2023 6:17am Living Will Yes April 05 10:41am Power of Phlebotomy Instructor Yes April 05, 2023 10:41am Advance Directive Response Recorded Date/ Time Name of Medical Power of Phlebotomy Instructor ON FILE May 15, 2023 9:19am Advance Directives Yes February 13, 2023 6:17am Living Will Yes May 15 9:19am Power of Phlebotomy Instructor Yes May 15, 2023 9:19am Advance Directives on File Yes Octob er 2022 6:17am Name of Medical Power of Phlebotomy Instructor Lilian Kay February 13, 2023 6:17am Advance Directives on File No Decem akhil 2022 10:12am Advance Directive Response Recorded Date/ Time Name of Medical Power of Phlebotomy Instructor ON FILE May 15, 2023 9:19am Advance Directives Yes February 13, 2023 6:17am Living Will Yes May 15 9:19am Power of Phlebotomy Instructor Yes May 15, 2023 9:19am Advance Directives on File No Decem 2022 10:12am Advance Directive Response Recorded Date/ Time Name of Medical Power of Phlebotomy Instructor ON FILE May 15, 2023 10:19am Advance Directives Yes February 13, 2023 7:17am Living Will Yes May 15 10:19am Power of Phlebotomy Instructor Yes May 15, 2023 10:19am Date Activated Date Inactivated Comments 02/28/2023 6:27 AM 03/05/2023 6:31 PM Date Activated Date Inactivated Comments 02/28/2023 6:27 AM 02/28/2023 6:27 AM Advance Directive Response Recorded Date/ Time Living Will Yes April 05 11:41am Do you have a Healthcare Power of Phlebotomy Instructor? Yes April 05, 2023 11:41am Living Will Yes January 07, 2024 8:30am Do you have a Healthcare Power of Phlebotomy Instructor? Yes January 07, 2024 8:30am Advance Directives on File Yes 2023 8:30am Advance Directives Yes December 8:30am Advance Directive Response Recorded Date/ Time Advance Directives Yes December 8:30am Reason for Referral Specialty Diagnoses / Procedures Referred By Contac t Referred To Contact Nutrition Diagnoses Diabetes mellitus type 2 with neurological manifestations (HCC) Procedures CONSULT TO NUTRITION THERAPY OFFICE/OUTPATIENT [facility] 60-74 MINUTES Felix Bill MD [address] [place] [address] Referral ID Status Reason Start Date Expiration Date Visits Requested Visits Authorized [id number] Pending Review PCP Requested Referral 09/12/2021 09/12/2022 1 1 Specialty Diagnoses / Procedures Referred By Contac t Referred To Contact CT IMAGING Diagnoses Chest pain, unspecified type Shortness of breath Elevated d-dimer Procedures CT CHEST W IVCON PE DIAGNOSTIC COMPUTED TOMOGRAPHY THORAX W/CONTRAST Melvina, Lynn, [employer].[facility] REP [address] [place] [address] Ct Imaging Referral ID Status Reason Start Date Expiration Date V isits Requested Visits Authorized [id number] Closed Auto-Generat ed Referral Patient Cleared - Admin/Chairm an/Director advise to proceed 10/09/2022 04/28/2023 1 1 Specialty Diagnoses / Procedures Referred By Contac t Referred To Contact Diagnoses Type II diabetes mellitus with manifestations (HCC) Procedures CONSULT TO DIABETES EDUCATION DSME/MNT MEDICAL NUTRITION ASSMT&IVNTJ INDIV EACH 15 UT MEDICAL NUTRITION ASSMT&IVNTJ INDIV EACH 15 UT MEDICAL NUTRITION ASSMT&IVNTJ INDIV EACH 15 UT MEDICAL NUTRITION ASSMT&IVNTJ INDIV EACH 15 UT Lise Richter APRN.CAMP[facility] REP [id number] [place] [id number] Referral ID Status Reason Start Date Expiration Date Visits Requested Visits Authorized [id number] Pending Review PCP Requested Referral 12/19/2022 12/19/2023 1 1 Specialty Diagnoses / Procedures Referred By Contac t Referred To Contact Diagnoses Monoclonal gammopathy of undetermined significance Anemia, unspecified type Procedures CONSULT TO HEMATOLOGY/ONCOLOGY OFFICE/OUTPATIENT [facility] 60-74 MINUTES Felix Bill MD [address] [place] [address] Referral ID Status Reason Start Date Expiration Date Visits Requested Visits Authorized [id number] Pending Review PCP Requested Referral 12/22/2022 12/22/2023 1 1 Specialty Diagnoses / Procedures Referred By Contac t Referred To Contact CT IMAGING Diagnoses Monoclonal gammopathy Procedures CT CHEST W IVCON DIAGNOSTIC COMPUTED TOMOGRAPHY THORAX W/[place] [address] [place] [address] [place] [address] Referral ID Status Reason Start Date Expiration Date Visits Requested Visits Authorized [id number] Authorized Auto-Generat ed Referral 01/07/2023 04/28/2023 2 2 Specialty Diagnoses / Procedures Referred By Contac t Referred To Contact CT IMAGING Diagnoses Monoclonal gammopathy Procedures CT ABD/PEL W IVCON CT ABD & PELVIS W/[place] [address] [place] [address] Ct Imaging [place] [address] Referral ID Status Reason Start Date Expiration Date Visits Requested Visits Authorized [id number] Authorized Auto-Generat ed Referral 01/07/2023 04/28/2023 1 1 Specialty Diagnoses / Procedures Referred By Contac t Referred To Contact Nutrition Diagnoses Poorly controlled type 2 diabetes mellitus (HCC) Procedures CONSULT TO NUTRITION THERAPY MEDICAL NUTRITION ASSMT&IVNTJ INDIV EACH 15 UT MEDICAL NUTRITION ASSMT&IVNTJ INDIV EACH 15 UT MEDICAL NUTRITION ASSMT&IVNTJ INDIV EACH 15 UT MEDICAL NUTRITION ASSMT&IVNTJ INDIV EACH 15 UT Lise Richter APRN.[facility] REP [id number] [place] [address] Referral ID Status Reason Start Date Expiration Date Visits Requested Visits Authorized [id number] Pending Review PCP Requested Referral 01/09/2023 01/09/2024 1 1 Specialty Diagnoses / Procedures Referred By Contac t Referred To Contact CT IMAGING Diagnoses Chest pain, unspecified type Shortness of breath Elevated d-dimer Procedures CT CHEST W IVCON PE DIAGNOSTIC COMPUTED TOMOGRAPHY THORAX W/CONTRAST Lynn Hein APRN.[facility]AMP[facility] REP [address] [place] [address] Ct Imaging [place] [address] Referral ID Status Reason Start Date Expiration Date V isits Requested Visits Authorized [id number] Closed Auto-Generat ed Referral Patient Cleared - Admin/Chairm an/Director advise to proceed or did not respond 10/09/2022 04/28/2023 1 1 Referral ID Status Reason Start Date Expiration Date V isits Requested Visits Authorized [id number] Closed Auto-Generate d Referral 01/07/2023 04/28/2023 2 2 Referral ID Status Reason Start Date Expiration Date V isits Requested Visits Authorized [id number] Closed Auto-Generate d Referral 01/07/2023 04/28/2023 1 1 Specialty Diagnoses / Procedures Referred By Contac t Referred To Contact Diagnoses Poorly controlled type 2 diabetes mellitus (HCC) Procedures CONSULT TO DIABETES EDUCATION DSME/MNT MEDICAL NUTRITION ASSMT&IVNTJ INDIV EACH 15 UT MEDICAL NUTRITION ASSMT&IVNTJ INDIV EACH 15 UT MEDICAL NUTRITION ASSMT&IVNTJ INDIV EACH 15 UT MEDICAL NUTRITION ASSMT&IVNTJ INDIV EACH 15 UT Lise Richter APRN.[facility] REP [id number] [place] [id number] Referral ID Status Reason Start Date Expiration Date Visits Requested Visits Authorized [id number] Authorized PCP Requested Referral 07/16/2023 07/15/2024 1 1 Specialty Diagnoses / Procedures Referred By Contac t Referred To Contact Nutrition Diagnoses Poorly controlled type 2 diabetes mellitus (HCC) Procedures CONSULT TO NUTRITION THERAPY MEDICAL NUTRITION ASSMT&IVNTJ INDIV EACH 15 UT Lise Richter APRN.[facility]AMP[facility] REP [id number] [place] [id number] Referral ID Status Reason Start Date Expiration Date Visits Requested Visits Authorized [id number] Authorized PCP Requested Referral 07/16/2023 07/15/2024 1 4 Chief Complaint and Reason for Visit Chief Complaint Amb Documentation 6 MO F/U WITH PFM AORTIC VALVE STENOSIS Reason for Visit Essential hypertensi on Mixed hyperlipidemia Non-rheumatic mitral regurgitation Nonrheumatic aortic (valve) stenosis Chief Complaint FU COUGH, SORE THROAT, CONGESTED Reason for Visit Dysplastic polyp of colon Ulcerative colitis Congestion of respiratory tract Cough Chief Complaint 6 M FU Nonrheumatic aortic (valve) stenosis Reason for Visit Essential hypertensi on Mixed hyperlipidemia Non-rheumatic mitral regurgitation Nonrheumatic aortic (valve) stenosis Chief Complaint 6 M FU Nonrheumatic aortic (valve) stenosis CHEST PAIN CARDIAC CATH CHEST PAIN CARDIAC CATH Reason for Visit Essential hypertensi on Mixed hyperlipidemia Non-rheumatic mitral regurgitation Nonrheumatic aortic (valve) stenosis Chief Complaint 6 M FU Nonrheumatic aortic (valve) stenosis CHEST PAIN CARDIAC CATH CHEST PAIN CARDIAC CATH S/P CABG s/p CABG Reason for Visit Essential hypertensi on Mixed hyperlipidemia Non-rheumatic mitral regurgitation Nonrheumatic aortic (valve) stenosis Chief Complaint Nonrheumatic aortic (valve) stenosis CHEST PAIN CARDIAC CATH CHEST PAIN CARDIAC CATH S/P CABG 3 M FU s/p CABG Reason for Visit Essential hypertensi on Mixed hyperlipidemia S/P CABG x 2 S/P aortic valve replacement Chief Complaint CHEST PAIN CARDIAC C ATH CHEST PAIN CARDIAC CATH S/P CABG 3 M FU s/p CABG s/p CABG Reason for Visit Essential hypertensi on Mixed hyperlipidemia S/P CABG x 2 S/P aortic valve replacement Polyp of colon Ulcerative colitis Chief Complaint CHEST PAIN CARDIAC C ATH S/P CABG 3 M FU s/p CABG s/p CABG Reason for Visit Essential hypertensi on Mixed hyperlipidemia S/P CABG x 2 S/P aortic valve replacement Polyp of colon Ulcerative colitis Chief Complaint S/P CABG 3 M FU s/p CABG s/p CABG s/p CABG Follow Up Reason for Visit Essential hypertensi on Mixed hyperlipidemia S/P CABG x 2 S/P aortic valve replacement Polyp of colon Ulcerative colitis Dysplastic polyp of colon Ulcerative colitis Non-specific colitis Chief Complaint 3 M FU s/p CABG s/p CABG s/p CABG Follow Up Amb Documentation NEW 2ND OPINION 3 M FU 2WKS LABS PRIOR REVIEW PET MED ONC SYMPTOMS AND SIGNS INVOLVING CIRCULATORY SYSTEM Reason for Visit Essential hypertensi on Mixed hyperlipidemia S/P CABG x 2 S/P aortic valve replacement Polyp of colon Ulcerative colitis Dysplastic polyp of colon Ulcerative colitis Non-specific colitis Anemia Waldenstrom macroglobulinemia Bilateral carotid bruits Essential hypertension Mixed hyperlipidemia S/P CABG x 2 S/P aortic valve replacement Anemia Waldenstrom macroglobulinemia Chief Complaint Admit Date 1 Y FU July 29, 2024 7:59 am peripheral lab draw August 05, 2024 7:59 am CAROTID BRUITS August 12, 2024 8:0 0am 6MO LABS PRIOR August 26, 2024 10: 01am 6 M FU November 10, 2024 9:51 am Reason for Visit Admit Date Bilateral carotid artery disease July 292024 7:59am Essential hypertension July 29, 2024 7 :59am Mixed hyperlipidemia July 29, 2024 7:5 9am S/P CABG x 2 July 29, 2024 7:59 am S/P aortic valve replacement July 29, 2024 7:59am Anemia August 26, 2024 10: 01am Waldenstrom macroglobulinemia July 10:01am Chief Complaint Admit Date 6 M FU November 10, 2024 9:51 am Intermittent chest pain, see clinicals. February 02, 2025 9:20am Reason for Visit Admit Date Dysplastic polyp of colon November 10 9:51am Positive occult stool blood test November 102024 9:51am Ulcerative colitis November 10, 2024 9:51 am Non-specific colitis November 10, 2024 9:5 1am Bilateral carotid artery disease February 02, 2025 9:20am Essential hypertension February 02, 2025 9:20am Mixed hyperlipidemia February 02, 2025 9 :20am S/P CABG x 2 February 02, 2025 9: 20am S/P aortic valve replacement January 9:20am Chest pain February 02, 2025 9: 20am Family History No Family History Records Found Relationship Condition Age at Onset Recorded Date/T tushar mother Diabetes mellitus Unknown Disorder of liver Unknown Coronary artery disease Unknown father Diabetes mellitus Unknown History of coronary artery bypass surgery Unknown Relationship Condition Age at Onset Recorded Date/T tushar mother Diabetes mellitus Unknown Disorder of liver Unknown Coronary artery disease Unknown father Diabetes mellitus Unknown History of coronary artery bypass surgery Unknown sister Malignant neoplasm of breast Unknown daughter Malignant neoplasm of breast Unknown Summary Purpose Additional Source Comments Source Comments (unrecognize d section and content) In the event this informatio n is protected by the [facility] Confidentiality of Alcohol and Drug Abuse Patient Records regulations: The Federal rules restrict any use of the information to criminally investigate or prosecute any alcohol or drug abuse patient.[facility] the event this information is protected by the Federal Confidentiality of Alcohol and Drug Abuse Patient Records regulations: The Federal rules restrict any use of the information to criminally investigate or prosecute any alcohol or drug abuse patient.[facility] HealthIn the event this information is protected by the Federal Confidentiality of Alcohol and Drug Abuse Patient Records regulations: The Federal rules restrict any use of the information to criminally investigate or prosecute any alcohol or drug abuse patient.[facility] the event this information is protected by the Federal Confidentiality of Alcohol and Drug Abuse Patient Records regulations: The Federal rules restrict any use of the information to criminally investigate or prosecute any alcohol or drug abuse patient.[facility] the event this information is protected by the Federal Confidentiality of Alcohol and Drug Abuse Patient Records regulations: The Federal rules restrict any use of the information to criminally investigate or prosecute any alcohol or drug abuse patient.[facility]In the event this information is protected by the Federal Confidentiality of Alcohol and Drug Abuse Patient Records regulations: The Federal rules restrict any use of the information to criminally investigate or prosecute any alcohol or drug abuse patient.[facility] HealthIn the event this information is protected by the Federal Confidentiality of Alcohol and Drug Abuse Patient Records regulations: The Federal rules restrict any use of the information to criminally investigate or prosecute any alcohol or drug abuse patient.[facility]In the event this information is protected by the Federal Confidentiality of Alcohol and Drug Abuse Patient Records regulations: The Federal rules restrict any use of the information to criminally investigate or prosecute any alcohol or drug abuse patient.[facility]In the event this information is protected by the Federal Confidentiality of Alcohol and Drug Abuse Patient Records regulations: The Federal rules restrict any use of the information to criminally investigate or prosecute any alcohol or drug abuse patient.[facility]In the event this information is protected by the Federal Confidentiality of Alcohol and Drug Abuse Patient Records regulations: The Federal rules restrict any use of the information to criminally investigate or prosecute any alcohol or drug abuse patient.[facility] HealthIn the event this information is protected by the Federal Confidentiality of Alcohol and Drug Abuse Patient Records regulations: The Federal rules restrict any use of the information to criminally investigate or prosecute any alcohol or drug abuse patient.[facility] HealthIn the event this information is protected by the Federal Confidentiality of Alcohol and Drug Abuse Patient Records regulations: The Federal rules restrict any use of the information to criminally investigate or prosecute any alcohol or drug abuse patient.[facility] HealthIn the event this information is protected by the Federal Confidentiality of Alcohol and Drug Abuse Patient Records regulations: The Federal rules restrict any use of the information to criminally investigate or prosecute any alcohol or drug abuse patient.[facility] HealthIn the event this information is protected by the Federal Confidentiality of Alcohol and Drug Abuse Patient Records regulations: The Federal rules restrict any use of the information to criminally investigate or prosecute any alcohol or drug abuse patient.[facility] HealthIn the event this information is protected by the Federal Confidentiality of Alcohol and Drug Abuse Patient Records regulations: The Federal rules restrict any use of the information to criminally investigate or prosecute any alcohol or drug abuse patient.[facility] HealthIn the event this information is protected by the Federal Confidentiality of Alcohol and Drug Abuse Patient Records regulations: The Federal rules restrict any use of the information to criminally investigate or prosecute any alcohol or drug abuse patient.[facility] HealthIn the event this information is protected by the Federal Confidentiality of Alcohol and Drug Abuse Patient Records regulations: The Federal rules restrict any use of the information to criminally investigate or prosecute any alcohol or drug abuse patient.[facility] HealthIn the event this information is protected by the Federal Confidentiality of Alcohol and Drug Abuse Patient Records regulations: The Federal rules restrict any use of the information to criminally investigate or prosecute any alcohol or drug abuse patient.[facility] HealthIn the event this information is protected by the Federal Confidentiality of Alcohol and Drug Abuse Patient Records regulations: The Federal rules restrict any use of the information to criminally investigate or prosecute any alcohol or drug abuse patient.[facility] HealthIn the event this information is protected by the Federal Confidentiality of Alcohol and Drug Abuse Patient Records regulations: The Federal rules restrict any use of the information to criminally investigate or prosecute any alcohol or drug abuse patient.[facility] HealthIn the event this information is protected by the Federal Confidentiality of Alcohol and Drug Abuse Patient Records regulations: The Federal rules restrict any use of the information to criminally investigate or prosecute any alcohol or drug abuse patient.[facility] HealthIn the event this information is protected by the Federal Confidentiality of Alcohol and Drug Abuse Patient Records regulations: The Federal rules restrict any use of the information to criminally investigate or prosecute any alcohol or drug abuse patient.[facility] HealthIn the event this information is protected by the Federal Confidentiality of Alcohol and Drug Abuse Patient Records regulations: The Federal rules restrict any use of the information to criminally investigate or prosecute any alcohol or drug abuse patient.[facility] HealthIn the event this information is protected by the Federal Confidentiality of Alcohol and Drug Abuse Patient Records regulations: The Federal rules restrict any use of the information to criminally investigate or prosecute any alcohol or drug abuse patient.[facility] HealthIn the event this information is protected by the Federal Confidentiality of Alcohol and Drug Abuse Patient Records regulations: The Federal rules restrict any use of the information to criminally investigate or prosecute any alcohol or drug abuse patient.[facility] HealthIn the event this information is protected by the Federal Confidentiality of Alcohol and Drug Abuse Patient Records regulations: The Federal rules restrict any use of the information to criminally investigate or prosecute any alcohol or drug abuse patient.[facility] HealthIn the event this information is protected by the Federal Confidentiality of Alcohol and Drug Abuse Patient Records regulations: The Federal rules restrict any use of the information to criminally investigate or prosecute any alcohol or drug abuse patient.[facility] HealthIn the event this information is protected by the Federal Confidentiality of Alcohol and Drug Abuse Patient Records regulations: The Federal rules restrict any use of the information to criminally investigate or prosecute any alcohol or drug abuse patient.[facility] HealthIn the event this information is protected by the Federal Confidentiality of Alcohol and Drug Abuse Patient Records regulations: The Federal rules restrict any use of the information to criminally investigate or prosecute any alcohol or drug abuse patient.[facility] HealthIn the event this information is protected by the Federal Confidentiality of Alcohol and Drug Abuse Patient Records regulations: The Federal rules restrict any use of the information to criminally investigate or prosecute any alcohol or drug abuse patient.[facility] HealthIn the event this information is protected by the Federal Confidentiality of Alcohol and Drug Abuse Patient Records regulations: The Federal rules restrict any use of the information to criminally investigate or prosecute any alcohol or drug abuse patient.[facility] HealthIn the event this information is protected by the Federal Confidentiality of Alcohol and Drug Abuse Patient Records regulations: The Federal rules restrict any use of the information to criminally investigate or prosecute any alcohol or drug abuse patient.[facility] HealthIn the event this information is protected by the Federal Confidentiality of Alcohol and Drug Abuse Patient Records regulations: The Federal rules restrict any use of the information to criminally investigate or prosecute any alcohol or drug abuse patient.[facility] HealthIn the event this information is protected by the Federal Confidentiality of Alcohol and Drug Abuse Patient Records regulations: The Federal rules restrict any use of the information to criminally investigate or prosecute any alcohol or drug abuse patient.[facility] HealthIn the event this information is protected by the Federal Confidentiality of Alcohol and Drug Abuse Patient Records regulations: The Federal rules restrict any use of the information to criminally investigate or prosecute any alcohol or drug abuse patient.[facility] HealthIn the event this information is protected by the Federal Confidentiality of Alcohol and Drug Abuse Patient Records regulations: The Federal rules restrict any use of the information to criminally investigate or prosecute any alcohol or drug abuse patient.[facility] HealthIn the event this information is protected by the Federal Confidentiality of Alcohol and Drug Abuse Patient Records regulations: The Federal rules restrict any use of the information to criminally investigate or prosecute any alcohol or drug abuse patient.[facility] HealthIn the event this information is protected by the Federal Confidentiality of Alcohol and Drug Abuse Patient Records regulations: The Federal rules restrict any use of the information to criminally investigate or prosecute any alcohol or drug abuse patient.[facility] HealthIn the event this information is protected by the Federal Confidentiality of Alcohol and Drug Abuse Patient Records regulations: The Federal rules restrict any use of the information to criminally investigate or prosecute any alcohol or drug abuse patient.[facility] HealthIn the event this information is protected by the Federal Confidentiality of Alcohol and Drug Abuse Patient Records regulations: The Federal rules restrict any use of the information to criminally investigate or prosecute any alcohol or drug abuse patient.[facility] HealthIn the event this information is protected by the Federal Confidentiality of Alcohol and Drug Abuse Patient Records regulations: The Federal rules restrict any use of the information to criminally investigate or prosecute any alcohol or drug abuse patient.[facility] HealthIn the event this information is protected by the Federal Confidentiality of Alcohol and Drug Abuse Patient Records regulations: The Federal rules restrict any use of the information to criminally investigate or prosecute any alcohol or drug abuse patient.[facility] HealthIn the event this information is protected by the Federal Confidentiality of Alcohol and Drug Abuse Patient Records regulations: The Federal rules restrict any use of the information to criminally investigate or prosecute any alcohol or drug abuse patient.[facility] HealthIn the event this information is protected by the Federal Confidentiality of Alcohol and Drug Abuse Patient Records regulations: The Federal rules restrict any use of the information to criminally investigate or prosecute any alcohol or drug abuse patient.[facility] HealthIn the event this information is protected by the Federal Confidentiality of Alcohol and Drug Abuse Patient Records regulations: The Federal rules restrict any use of the information to criminally investigate or prosecute any alcohol or drug abuse patient.[facility] HealthIn the event this information is protected by the Federal Confidentiality of Alcohol and Drug Abuse Patient Records regulations: The Federal rules restrict any use of the information to criminally investigate or prosecute any alcohol or drug abuse patient.[facility] HealthIn the event this information is protected by the Federal Confidentiality of Alcohol and Drug Abuse Patient Records regulations: The Federal rules restrict any use of the information to criminally investigate or prosecute any alcohol or drug abuse patient.[facility] HealthIn the event this information is protected by the Federal Confidentiality of Alcohol and Drug Abuse Patient Records regulations: The Federal rules restrict any use of the information to criminally investigate or prosecute any alcohol or drug abuse patient.[facility] HealthIn the event this information is protected by the Federal Confidentiality of Alcohol and Drug Abuse Patient Records regulations: The Federal rules restrict any use of the information to criminally investigate or prosecute any alcohol or drug abuse patient.[facility] HealthIn the event this information is protected by the Federal Confidentiality of Alcohol and Drug Abuse Patient Records regulations: The Federal rules restrict any use of the information to criminally investigate or prosecute any alcohol or drug abuse patient.[facility] HealthIn the event this information is protected by the Federal Confidentiality of Alcohol and Drug Abuse Patient Records regulations: The Federal rules restrict any use of the information to criminally investigate or prosecute any alcohol or drug abuse patient.[facility] HealthIn the event this information is protected by the Federal Confidentiality of Alcohol and Drug Abuse Patient Records regulations: The Federal rules restrict any use of the information to criminally investigate or prosecute any alcohol or drug abuse patient.[facility] HealthIn the event this information is protected by the Federal Confidentiality of Alcohol and Drug Abuse Patient Records regulations: The Federal rules restrict any use of the information to criminally investigate or prosecute any alcohol or drug abuse patient.[facility] HealthIn the event this information is protected by the Federal Confidentiality of Alcohol and Drug Abuse Patient Records regulations: The Federal rules restrict any use of the information to criminally investigate or prosecute any alcohol or drug abuse patient.[facility] HealthIn the event this information is protected by the Federal Confidentiality of Alcohol and Drug Abuse Patient Records regulations: The Federal rules restrict any use of the information to criminally investigate or prosecute any alcohol or drug abuse patient.[facility] HealthIn the event this information is protected by the Federal Confidentiality of Alcohol and Drug Abuse Patient Records regulations: The Federal rules restrict any use of the information to criminally investigate or prosecute any alcohol or drug abuse patient.[facility] HealthIn the event this information is protected by the Federal Confidentiality of Alcohol and Drug Abuse Patient Records regulations: The Federal rules restrict any use of the information to criminally investigate or prosecute any alcohol or drug abuse patient.[facility] HealthIn the event this information is protected by the Federal Confidentiality of Alcohol and Drug Abuse Patient Records regulations: The Federal rules restrict any use of the information to criminally investigate or prosecute any alcohol or drug abuse patient.[facility] HealthIn the event this information is protected by the Federal Confidentiality of Alcohol and Drug Abuse Patient Records regulations: The Federal rules restrict any use of the information to criminally investigate or prosecute any alcohol or drug abuse patient.[facility] HealthIn the event this information is protected by the Federal Confidentiality of Alcohol and Drug Abuse Patient Records regulations: The Federal rules restrict any use of the information to criminally investigate or prosecute any alcohol or drug abuse patient.[facility] HealthIn the event this information is protected by the Federal Confidentiality of Alcohol and Drug Abuse Patient Records regulations: The Federal rules restrict any use of the information to criminally investigate or prosecute any alcohol or drug abuse patient.[facility] HealthIn the event this information is protected by the Federal Confidentiality of Alcohol and Drug Abuse Patient Records regulations: The Federal rules restrict any use of the information to criminally investigate or prosecute any alcohol or drug abuse patient.[facility] HealthIn the event this information is protected by the Federal Confidentiality of Alcohol and Drug Abuse Patient Records regulations: The Federal rules restrict any use of the information to criminally investigate or prosecute any alcohol or drug abuse patient.[facility] HealthIn the event this information is protected by the Federal Confidentiality of Alcohol and Drug Abuse Patient Records regulations: The Federal rules restrict any use of the information to criminally investigate or prosecute any alcohol or drug abuse patient.[facility] HealthIn the event this information is protected by the Federal Confidentiality of Alcohol and Drug Abuse Patient Records regulations: The Federal rules restrict any use of the information to criminally investigate or prosecute any alcohol or drug abuse patient.[facility] HealthIn the event this information is protected by the Federal Confidentiality of Alcohol and Drug Abuse Patient Records regulations: The Federal rules restrict any use of the information to criminally investigate or prosecute any alcohol or drug abuse patient.[facility] HealthIn the event this information is protected by the Federal Confidentiality of Alcohol and Drug Abuse Patient Records regulations: The Federal rules restrict any use of the information to criminally investigate or prosecute any alcohol or drug abuse patient.[facility] HealthIn the event this information is protected by the Federal Confidentiality of Alcohol and Drug Abuse Patient Records regulations: The Federal rules restrict any use of the information to criminally investigate or prosecute any alcohol or drug abuse patient.[facility] HealthIn the event this information is protected by the Federal Confidentiality of Alcohol and Drug Abuse Patient Records regulations: The Federal rules restrict any use of the information to criminally investigate or prosecute any alcohol or drug abuse patient.[facility] HealthIn the event this information is protected by the Federal Confidentiality of Alcohol and Drug Abuse Patient Records regulations: The Federal rules restrict any use of the information to criminally investigate or prosecute any alcohol or drug abuse patient.[facility] HealthIn the event this information is protected by the Federal Confidentiality of Alcohol and Drug Abuse Patient Records regulations: The Federal rules restrict any use of the information to criminally investigate or prosecute any alcohol or drug abuse patient.[facility] HealthIn the event this information is protected by the Federal Confidentiality of Alcohol and Drug Abuse Patient Records regulations: The Federal rules restrict any use of the information to criminally investigate or prosecute any alcohol or drug abuse patient.[facility] HealthIn the event this information is protected by the Federal Confidentiality of Alcohol and Drug Abuse Patient Records regulations: The Federal rules restrict any use of the information to criminally investigate or prosecute any alcohol or drug abuse patient.[facility] Reason for Visit (unrecogniz ed section and content) Reason Onset Date Comments Refill Request 08/21/2021 Reason Onset Date Comments Refill Request 09/01/2021 [facility] Reason Comments F/U 3 Month Reason Onset Date Comments Refill Request 12/22/2020 Reason Comments diet plan Reason Comments patient update/concerns Reason Comments Refill Request Reason Comments Patient Education Assessment Specialty Diagnoses / Procedures Referred By Contbrad t Referred To Contact Nutrition Diagnoses Diabetes mellitus type 2 with neurological manifestations (HCC) Procedures CONSULT TO NUTRITION THERAPY OFFICE/OUTPATIENT NEW HIGH MDM 60-74 MINUTES Felix Bill MD [address] [place] [address] Referral ID Status Reason Start Date Expiration Date Visits Requested Visits Authorized [id number] Pending Review PCP Requested Referral 09/12/2021 09/12/2022 1 1 Reason Comments Medication Question Reason Onset Date Comments Refill Request 11/06/2021 Reason Comments F/U HTN 3 Month Reason Comments Patient Update Reason Comments F/U 3 Month Reason Onset Date Comments Refill Request 06/07/2022 Reason Comments Cough Reason Comments Results Reason Comments Results Reason Comments Follow Up Reason Onset Date Comments Refill Request 10/29/2022 Reason Onset Date Comments Refill Request 11/14/2022 Reason Onset Date Comments Refill Request 11/26/2022 Reason Comments Medicare Wellness Exam F/U 6 months Specialty Diagnoses / Procedures Referred By Contac t Referred To Contact Endocrinology Diagnoses Diabetes mellitus type 2 with neurological manifestations (HCC) Procedures CONSULT TO ENDOCRINOLOGY OFFICE/OUTPATIENT NEW HIGH MDM 60-74 MINUTES Felix Bill MD [address] [place] [address] Referral ID Status Reason Start Date Expiration Date Visits Requested Visits Authorized [id number] Pending Review PCP Requested Referral 12/18/2022 12/18/2023 1 1 Reason Comments MSC Order Dexcom G7 Reason Comments Patient Question Reason Comments Patient Update Reason Comments Care Coordination Introduction Reason Comments Established Patient Reason Comments New Patient Reason Comments Radiology CT Specialty Diagnoses / Procedures Referred By Contac t Referred To Contact CT IMAGING Diagnoses Chest pain, unspecified type Shortness of breath Elevated d-dimer Procedures CT CHEST W IVCON PE DIAGNOSTIC COMPUTED TOMOGRAPHY THORAX W/CONTRAST Lynn Hein APRN.CNP [address] [place] [id number] [facility] [place] [address] Referral ID Status Reason Start Date Expiration Date V isits Requested Visits Authorized [id number] Closed Auto-Generat ed Referral Patient Cleared - Admin/Chairm an/Director advise to proceed or did not respond 10/09/2022 04/28/2023 1 1 Specialty Diagnoses / Procedures Referred By Contac t Referred To Contact CT IMAGING Diagnoses Monoclonal gammopathy Procedures CT CHEST W IVCON DIAGNOSTIC COMPUTED TOMOGRAPHY THORAX W/[place] [address] [place] [address] [address] [facility] [place] [address] Referral ID Status Reason Start Date Expiration Date V isits Requested Visits Authorized [id number] Closed Auto-Generate d Referral 01/07/2023 04/28/2023 2 2 Reason Comments Radiology US Specialty Diagnoses / Procedures Referred By Contac t Referred To Contact US IMAGING Diagnoses Other proteinuria Procedures US KIDNEY/BLADDER US RETROPERITONEAL REAL TIME W/IMAGE COMPLETE Felix Bill MD [address] [place] [address] [facility] [address] Referral ID Status Reason Start Date Expiration Date V isits Requested Visits Authorized [id number] Closed Auto-Generate d Referral 12/18/2022 04/28/2023 [address] Specialty Diagnoses / Procedures Referred By Contac t Referred To Contact Diagnoses Nonrheumatic aortic (valve) stenosis Atherosclerotic heart disease of [place] coronary artery without angina pectoris Nonrheumatic aortic (valve) stenosis [I35.0] 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] Procedures CA RPLCMT PROST AORTIC VALVE OPEN XCP HOMOGRF/STENT CA CABG W/ARTERIAL GRAFT THREE ARTERIAL GRAFTS CA ECHO TRANSESOPHAG R-T 2D W/PRB IMG ACQUISJ I&R TISSUE AORTIC VALVE REPLACEMENT, CORONARY ARTERY BYPASS GRAFT, TRANSESOPHAGEAL ECHOCARDIOGRAM CABG X3 ARTERIAL GRAFTS Echocardiography transesophageal real-time Rodríguez, Eduar Monroe MD [address] [place] [address], [address] [place] [address] [address] [place] [address] Referral ID Status Reason Start Date Expiration Date Visits Re quested Visits Authorized [id number] 1 Reason Onset Date Comments Other 03/11/2023 Reason Onset Date Comments hypotension 03/14/2023 Reason Comments AVS 02/06/23 CHEMO START Reason Comments Follow-up Reason Comments Patient Question Reason Onset Date Comments Refill Request 04/04/2023 Reason Comments Future Appointment Reason Comments Patient Question Requesting referral faxed Reason Comments Type 2 Diabetes Reason Comments Medication Problem Reason Onset Date Comments Population Health Navigation Outreach 08/05/2023 [employer] Gaps Reason Onset Date Comments Refill Request 08/19/2023 Reason Comments Follow Up follow up- meds Reason Comments Med Refill Reason Comments Orders [facility] Reason Onset Date Comments Refill Request 01/14/2024 Reason Comments Updated OV Notes for CGM Reason Onset Date Comments Refill Request 05/18/2024 Reason Comments F/U 6 months Reason Onset Date Comments Refill Request 06/25/2024 Reason Onset Date Comments Refill Request 07/13/2024 Reason Onset Date Comments Refill Request 08/03/2024 Reason Comments Rash Left side x 4 days Reason Comments Follow Up Shingles x 1 week Reason Onset Date Comments Refill Request 08/27/2024 Reason Comments type 2 diabetes Reason Comments OV Notes to DME Reason Comments Patient Question BD needles Care Teams (unrecognized sec tion and content) Ammunition Officer Relationship Specialty Start Date End Date Felix Bill MD [address] [facility] [place] [address] PCP - General Internal Medicine 03/19/16 Ammunition Officer Relationship Specialty Start Date End Date Felix Bill MD [facility] [place] [address] PCP - General Internal Medicine 03/19/16 Ammunition Officer Relationship Specialty Start Date End Date Felix Bill MD [facility] [place] [address] PCP - General Internal Medicine 03/19/16 Ammunition Officer Relationship Specialty Start Date End Date Felix Bill MD [address] [place] [address], [place] [address] PCP - General Internal Medicine 03/19/16 Ammunition Officer Relationship Specialty Start Date End Date Felix Bill MD [facility] [place] [address] PCP - General Internal Medicine 03/19/16 Ammunition Officer Relationship Specialty Start Date End Date Felix Bill MD [facility] [place] [address] PCP - General Internal Medicine 03/19/16 Ammunition Officer Relationship Specialty Start Date End Date Felix Bill MD [facility] [place] [address] PCP - General Internal Medicine 03/19/16 Ammunition Officer Relationship Specialty Start Date End Date Felix Bill MD [address] [place] [address] [place] [address] PCP - General Internal Medicine 03/19/16 Team Status: Active Member Role Status Dates Frankie Webb Family Provider Active Dr. Felix Bill MD Primary Care Provider Active Team Status: Inactive Member Role Status Dates Dr. Felix Bill MD Primary Care Provider, Refer ring Provider Active Dr. Cam Torres MD Attending Provider Active Team Status: Active Member Role Status Dates Dr. Felix Bill MD Primary Care Provider Active Nakita Heath Attending Provider Active Team Status: Active Member Role Status Dates Dr. Felix Bill MD Primary Care Provider Active Dr. Cam Torres MD Attending Provider Active Team Status: Inactive Member Role Status Dates Dr. Felix Bill MD Primary Care Provider Active Dr. Cam Torres MD Attending Provider Active Ammunition Officer Relationship Specialty Start Date End Date Felix Bill MD [address] [place] [address] PCP - General Internal Medicine 03/19/16 Ammunition Officer Relationship Specialty Start Date End Date Felix Bill MD [address] [place] [address] PCP - General Internal Medicine 03/19/16 Ammunition Officer Relationship Specialty Start Date End Date Felix Bill MD [address] [place] [address] PCP - General Internal Medicine 03/19/16 Ammunition Officer Relationship Specialty Start Date End Date Felix Bill MD [address] [place] [address] PCP - General Internal Medicine 03/19/16 Ammunition Officer Relationship Specialty Start Date End Date Felix Bill MD [address] [place] [address] PCP - General Internal Medicine 03/19/16 Team Status: Inactive Member Role Status Dates Dr. Felix Bill MD Primary Care Provider, Refer ring Provider Active Roz Nails [employer]IATE, [employer]ETING ASSOCIATE-C Attending Provider Active Team Status: Inactive Member Role Status Dates Dr. Felix Bill MD Primary Care Provider, Refer ring Provider Active Olivia IBANEZ, [place] Attending Provider Active Team Status: Inactive Member Role Status Dates Dr. Felix Bill MD Primary Care Provider Active SUMANTH MORRIS DO Attending Provider, Referring Candy weiner Active Ammunition Officer Relationship Specialty Start Date End Date Felix Bill MD [address] [facility] [place] [address] PCP - General Internal Medicine 03/19/16 Ammunition Officer Relationship Specialty Start Date End Date Felix Bill MD [address] [place] [address] PCP - General Internal Medicine 03/19/16 Ammunition Officer Relationship Specialty Start Date End Date Felix Bill MD [address] [place] [address] PCP - General Internal Medicine 03/19/16 Ammunition Officer Relationship Specialty Start Date End Date Felix Bill MD [address] [facility] [place] [address] PCP - General Internal Medicine 03/19/16 Ammunition Officer Relationship Specialty Start Date End Date Felix Bill MD [address] [facility] [place] [address] PCP - General Internal Medicine 03/19/16 Ammunition Officer Relationship Specialty Start Date End Date Felix Bill MD [address] [place] [address] PCP - General Internal Medicine 03/19/16 Leland Nguyen MD [address] [facility] [place] [address] Hematology/Oncology 12/28/22 Ammunition Officer Relationship Specialty Start Date End Date Felix Bill MD [address] [place] [address] PCP - General Internal Medicine 03/19/16 Leland Nguyen MD [address] [place] [address] Hematology/Oncology 12/28/22 Ammunition Officer Relationship Specialty Start Date End Date Felix Bill MD [address] [place] [address] PCP - General Internal Medicine 03/19/16 Leland Nguyen MD [address] [place] [address] Hematology/Oncology 12/28/22 Team Status: Inactive Member Role Status Dates Dr. Felix Bill MD Primary Care Provider, Refer ring Provider Active Nakita IBANEZ, PA Attending Provider Active Team Status: Active Member Role Status Dates Dr. Felix Bill MD Primary Care Provider Active Dr. Chase Baig MD Attending Provider Active Team Status: Inactive Member Role Status Dates Dr. Felix Bill MD Primary Care Provider Active Nakita IBANEZ, PA Attending Provider, Referr ing Provider Active Ammunition Officer Relationship Specialty Start Date End Date Felix Bill MD [address] [place] [address] PCP - General Internal Medicine 03/19/16 Leland Nguyen MD [address] [place] [address] Hematology/Oncology 12/28/22 Ammunition Officer Relationship Specialty Start Date End Date Felix Bill MD [address] [facility] [place], [place] [address] PCP - General Internal Medicine 03/19/16 Leland Nguyen MD [address] [facility], [place] [address] Hematology/Oncology 12/28/22 Team Status: Active Member Role Status Dates Dr. Felix Bill MD Primary Care Provider Active Dr. Chaes Baig MD Attending Provider, Referring Pro vider Active Team Status: Active Member Role Status Dates Dr. Felix Bill MD Primary Care Provider Active Dr. Chase Baig MD Attending Provider, Other Provide r Active Team Status: Inactive Member Role Status Dates Dr. Felix Bill MD Primary Care Provider Active Dr. Chase Baig MD Attending Provider, Referring Pro vider Active Ammunition Officer Relationship Specialty Start Date End Date Felix Bill [address] [facility] [place] [address] PCP - General Internal Medicine 02/18/23 Ammunition Officer Relationship Specialty Start Date End Date Felix Bill [address] [place], [place] [address] PCP - General Internal Medicine 02/18/23 Ammunition Officer Relationship Specialty Start Date End Date Felix Bill [address] [facility] [place], [place] [address] PCP - General Internal Medicine 02/18/23 Ammunition Officer Relationship Specialty Start Date End Date Felix Bill [address] [facility] [place], [place] [address] PCP - General Internal Medicine 02/18/23 Ammunition Officer Relationship Specialty Start Date End Date Felix Bill MD [address] [facility] [address] PCP - General Internal Medicine 03/19/16 Leland Nguyen MD [address] [place] [address] Hematology/Oncology 12/28/22 Ammunition Officer Relationship Specialty Start Date End Date Felix Bill MD [address] [facility] [address] PCP - General Internal Medicine 03/19/16 Leland Nguyen MD [address] [place] [address] Hematology/Oncology 12/28/22 Ammunition Officer Relationship Specialty Start Date End Date Felix Bill MD [address] [facility] [address] PCP - General Internal Medicine 03/19/16 Ammunition Officer Relationship Specialty Start Date End Date Felix Bill MD [address] [facility] [address] PCP - General Internal Medicine 03/19/16 Leland Nguyen MD [address] [place] [address] Hematology/Oncology 12/28/22 Ammunition Officer Relationship Specialty Start Date End Date Felix Bill [address] [facility] [address] PCP - General Internal Medicine 02/18/23 Ammunition Officer Relationship Specialty Start Date End Date Felix Bill [address] [facility] [address] PCP - General Internal Medicine 02/18/23 Ammunition Officer Relationship Specialty Start Date End Date Felix Bill MD [address] [facility] [address] PCP - General Internal Medicine 03/19/16 Leland Nguyen MD [address] [place] [address] Hematology/Oncology 12/28/22 Delores Cao, VICENTE [address] [place] [address] Specialty Neuroscientist Hematology/Oncology 02/27/23 02/27/23 Ammunition Officer Relationship Specialty Start Date End Date Felix Bill MD [address] [facility] [address] PCP - General Internal Medicine 03/19/16 Leland Nguyen MD [address] [place] [address] Hematology/Oncology 12/28/22 Ammunition Officer Relationship Specialty Start Date End Date Felix Bill [address] [facility] [place] [address] PCP - General Internal Medicine 02/18/23 Ammunition Officer Relationship Specialty Start Date End Date Felix Bill MD [address] [facility] [place] [address] PCP - General Internal Medicine 03/19/16 Leland Nguyen MD [address] [facility] [place] [address] Hematology/Oncology 12/28/22 Ammunition Officer Relationship Specialty Start Date End Date Felix Bill MD [address] [facility] [place], [place] [address] PCP - General Internal Medicine 03/19/16 Leland Nguyen MD [address] [place] [facility] [place] [address] Hematology/Oncology 12/28/22 Ammunition Officer Relationship Specialty Start Date End Date Felix Bill [address] [facility] [place], [place] [address] PCP - General Internal Medicine 02/18/23 Team Status: Active Member Role Status Dates Dr. Felix Bill MD Primary Care Provider Active Dr. Eduar Rodríguez MD Attending Provider, Referring Pr ovider Active Team Status: Inactive Member Role Status Dates Dr. Felix Bill MD Primary Care Provider Active Out of [facility] Doctor Attending Provider Active Team Status: Inactive Member Role Status Dates Dr. Felix Bill MD Primary Care Provider Active Dr. Eduar Rodríguez MD Attending Provider, Referring Pr ovider Active Team Status: Active Member Role Status Dates Dr. Felix Bill MD Primary Care Provider, Refer ring Provider Active Dr. Douglas Jimenez DO Attending Provider, Other Prov ider Active Team Status: Inactive Member Role Status Dates Dr. Felix Bill MD Primary Care Provider, Refer ring Provider Active Dr. Douglas Jimenez DO Attending Provider Active Ammunition Officer Relationship Specialty Start Date End Date Felix Bill MD [address] [facility] [place] [address] PCP - General Internal Medicine 03/19/16 Leland Nguyen MD [address] [place] [address] Hematology/Oncology 12/28/22 Ammunition Officer Relationship Specialty Start Date End Date Felix Bill MD [address] [place] [address] PCP - General Internal Medicine 03/19/16 Leland Nguyen MD [address] [place] [address] Hematology/Oncology 12/28/22 Ammunition Officer Relationship Specialty Start Date End Date Felix Bill MD [address] [place] [address] PCP - General Internal Medicine 03/19/16 Leland Nguyen MD [address] [place] [address] Hematology/Oncology 12/28/22 Ammunition Officer Relationship Specialty Start Date End Date Felix Bill MD [address] [place] [address] PCP - General Internal Medicine 03/19/16 Leland Nguyen MD [address] [place] [address] Hematology/Oncology 12/28/22 Ammunition Officer Relationship Specialty Start Date End Date Felix Bill MD [address] [place] [address] PCP - General Internal Medicine 03/19/16 Leland Nguyen MD [address] [place] [facility] [place] [address] Hematology/Oncology 12/28/22 Team Status: Inactive Member Role Status Dates Dr. Felix Bill MD Primary Care Provider, Refer ring Provider Active Dr. Marco Hurtado MD Attending Provider Active Team Status: Active Member Role Status Dates Dr. Felix Bill MD Primary Care Provider Active Laverne Paz Attending Provider Active Team Status: Active Member Role Status Dates Dr. Felix Bill MD Primary Care Provider Active Dr. Eduar Erickson MD Attending Provider Active Team Status: Active Member Role Status Dates Dr. Felix Bill MD Primary Care Provider Active Dr. Marco Hurtado MD Attending Provider, Referring Pro vider Active Ammunition Officer Relationship Specialty Start Date End Date Felix Bill MD [address] [facility] [place] [address] PCP - General Internal Medicine 03/19/16 Leland Nguyen MD [address] [place] [facility] [place] [address] Hematology/Oncology 12/28/22 Ammunition Officer Relationship Specialty Start Date End Date Felix iBll MD [address] [facility] [place] [address] PCP - General Internal Medicine 03/19/16 Leland Nguyen MD [address] [place] [facility] [place] [address] Hematology/Oncology 12/28/22 Ammunition Officer Relationship Specialty Start Date End Date Felix Bill MD [address] [facility] [place] [address] PCP - General Internal Medicine 03/19/16 Ammunition Officer Relationship Specialty Start Date End Date Felix Bill MD [address] [place] [address] PCP - General Internal Medicine 03/19/16 Leland Nguyen MD [address] [place] [address] Hematology/Oncology 12/28/22 Lynn Vieyra, BOTTLER HELPER.CAMPUS REP [address] [place] [address] Radiation Oncology Nurse Internal Medicine 04/06/24 Ammunition Officer Relationship Specialty Start Date End Date Felix Bill MD [address] [place] [address] PCP - General Internal Medicine 03/19/16 Leland Nguyen MD [address] [place] [address] Hematology/Oncology 12/28/22 Lynn Vieyra, BOTTLER HELPER.CAMPUS REP [address] [place] [address] Radiation Oncology Nurse Internal Medicine 04/06/24 Ammunition Officer Relationship Specialty Start Date End Date Felix Bill MD [address] [place] [address] PCP - General Internal Medicine 03/19/16 Leland Nguyen MD [address] [place] [address] Hematology/Oncology 12/28/22 Lynn Vieyra, BOTTLER HELPER.CAMPUS REP [address] [place] [address] Radiation Oncology Nurse Internal Medicine 04/06/24 Ammunition Officer Relationship Specialty Start Date End Date Felix Bill MD [address] [place] [address] PCP - General Internal Medicine 03/19/16 Leland Nguyen MD [address] [place] [address] Hematology/Oncology 12/28/22 Lynn Vieyra, BOTTLER HELPER.CAMPUS REP [address] [place] [address] Radiation Oncology Nurse Internal Medicine 04/06/24 Ammunition Officer Relationship Specialty Start Date End Date Felix Bill MD [address] [place] [address] PCP - General Internal Medicine 03/19/16 Leland Nguyen MD [address] [place] [address] Hematology/Oncology 12/28/22 Lynn Vieyra, BOTTLER HELPER.CAMPUS REP [address] [place] [address] Radiation Oncology Nurse Internal Medicine 04/06/24 Ammunition Officer Relationship Specialty Start Date End Date Felix Bill MD [address] [place] [address] PCP - General Internal Medicine 03/19/16 Leland Nguyen MD [address] [place] [address] Hematology/Oncology 12/28/22 Lynn Vieyra APRN.CAMPUS REP [address] [place], [place] [address] Radiation Oncology Nurse Internal Medicine 04/06/24 Ammunition Officer Relationship Specialty Start Date End Date Felix Bill MD [address] [place], [place] [address] PCP - General Internal Medicine 03/19/16 Leland Ngyuen MD [address] [place], [place] [address] Hematology/Oncology 12/28/22 Lynn Vieyra, BOTTLER HELPER.CAMPUS REP [address] [place], [place] [address] Radiation Oncology Nurse Internal Medicine 04/06/24 Team Status: Active Member Role/Relationship Status Dates Dr. Felix Bill MD Primary Care Provider Active Team Status: Inactive Member Role/Relationship Status Dates Dr. Felix Bill MD Primary Care Provider Active Start: July 29, 2024 End: July 29, 2024 Dr. Felix Bill MD Referring Provider Active Start: July 29, 2024 End: July 29, 2024 Nakita Zarate PA, PA Attending Provider Active Start: July 29, 2024 End: July 29, 2024 Team Status: Active Member Role/Relationship Status Dates Dr. Felix Bill MD Primary Care Provider Active Start: August 05, 2024 Dr. Marco Hurtado MD Attending Provider Active S tart: August 05, 2024 Dr. Marco Hurtado MD Referring Provider Active S tart: August 05, 2024 Team Status: Inactive Member Role/Relationship Status Dates Dr. Felix Bill MD Primary Care Provider Active Start: August 12, 2024 End: August 12, 2024 Nakita Zarate PA, PA Attending Provider Active Start: August 12, 2024 End: August 12, 2024 Nakita IBANEZ PA Referring Provider Active Start: August 12, 2024 End: August 12, 2024 Team Status: Active Member Role/Relationship Status Dates Dr. Felix Bill MD Primary Care Provider Active Start: August 12, 2024 Dr. Eduar Ercikson MD Attending Provider Active S tart: August 12, 2024 MARCELLE Lopez Referring Provider Active Start: August 12, 2024 Team Status: Inactive Member Role/Relationship Status Dates Dr. Felix Bill MD Primary Care Provider Active Start: August 26, 2024 End: August 26, 2024 Dr. Felix Bill MD Referring Provider Active Start: August 26, 2024 End: August 26, 2024 Dr. Marco Hurtado MD Attending Provider Active S tart: August 26, 2024 End: August 26, 2024 Team Status: Inactive Member Role/Relationship Status Dates Dr. Felix Bill MD Primary Care Provider Active Start: November 10, 2024 End: November 10, 2024 Dr. Felix Bill MD Referring Provider Active Start: November 10, 2024 End: November 10, 2024 Dr. Douglas Jimenez DO Attending Provider Active Start: November 10, 2024 End: November 10, 2024 Team Status: Active Member Role/Relationship Status Dates Dr. Felix Bill MD Primary care physician Activ e Team Status: Inactive Member Role/Relationship Status Dates Dr. Felix Bill MD Primary care physician Activ e Start: November 10, 2024 End: November 10, 2024 Dr. Felix Bill MD Referring Provider Active Start: November 10, 2024 End: November 10, 2024 Dr. Douglas Jimenez DO Attending physician Active Start: November 10, 2024 End: November 10, 2024 Team Status: Inactive Member Role/Relationship Status Dates Dr. Felix Bill MD Primary care physician Activ e Start: February 02, 2025 End: February 02, 2025 Dr. Felix Bill MD Referring Provider Active Start: February 02, 2025 End: February 02, 2025 Lia Mcknight IN STORE MARKETING ASSOCIATE, IN STORE MARKETING ASSOCIATE-C Attending physician Active Start: February 02, 2025 End: February 02, 2025 Goals (unrecognized section and content) Goals may be documented in a n alternate sectionGoals may be documented in an alternate sectionGoals may be documented in an alternate sectionGoals may be documented in an alternate sectionGoals may be documented in an alternate sectionGoals may be documented in an alternate sectionGoals may be documented in an alternate sectionGoals may be documented in an alternate section Scheduled Active and Recently Administ ered Medications (unrecognized section and content) Medication Order 03/03/2023 03/04/2023 03/05/2023 acetaminophen (Tylenol) tablet 1,000 mg 1,000 mg, Oral, Every 8 hours, First dose on Tiana 02/28/23 at 1130, Recovery & On Unit 0539 (Given - Provider: Zhou Mendez RN)1145 (Given - Provider: Carlotta Wooten RN)1820 (Given - Provider: Carlotta Wooten RN) 0329 (Given - Provider: Kay Dumont RN)1118 (Given - Provider: Vicki Sommers RN)2118 (Given - Provider: Ellie Davis, RN) 0413 (Given - Provider: Ellie Davis, RN)1130 (Not Given - Provider: Jose Yanez RN - Reason: Patient/family refused) amiodarone (Pacerone) tablet 200 mg 200 mg, Oral, Daily, First dose (after last modification) on 03/05/23 at 0900 0858 (Given - Provider: Jose Yanez, VICENTE) amiodarone (Pacerone) tablet 400 mg (CANCELED) 400 mg, Oral, 2 times daily, First dose on 03/02/23 at 0900, For 14 days 0949 (Given - Provider: Carlotta Wooten RN)2141 (Given - Provider: Kay Dumont, VICENTE) 0939 (Given - Provider: Vicki Sommers RN)2117 (Given - Provider: Ellie Davis RN) amLODIPine (Norvasc) tablet 10 mg 10 mg, Oral, Daily, First dose (after last modification) on 03/03/23 at 0900 0948 (Given - Provider: Carlotta Wooten RN) 0939 (Given - Provider: Vicki Sommers RN) 0858 (Given - Provider: Jose Yanez RN) apixaban (Eliquis) tablet 5 mg 5 mg, Oral, 2 times daily, First dose on 03/04/23 at 0900, Anticoagulant 0939 (Given - Provider: Vicki Sommers RN)2118 (Given - Provider: Ellie Davis RN) 0858 (Given - Provider: Jose Yanez RN) aspirin EC tablet 81 mg 81 mg, Oral, Daily, First dose on Sat03/01/23 at 0900, Do not crush, chew, or split. 0948 (Given - Provider: Carlotta Wooten RN) 0939 (Given - Provider: Vicki Sommers RN) 0858 (Given - Provider: Jose Yanez RN) chlorhexidine (Peridex) 0.12 % solution 15 mL 15 mL, Mouth/Throat, 2 times daily, First dose on Tiana 02/28/23 at 1130, For 7 days, Phase II/On Unit, Rinse and spit. Do not swallow. 0949 (Given - Provider: Carlotta Wooten RN)2142 (Given - Provider: Kay Dumont RN) 0939 (Given - Provider: Vicki Sommers RN)2100 (Given - Provider: Ellie Davis, VICENTE) 0858 (Given - Provider: Jose Yanez RN) enoxaparin (Lovenox) syringe 40 mg (CANCELED) 40 mg, SubCUTAneous, Every 24 hours scheduled (Daily), First dose on 03/02/23 at 1000, Indication of Use: Prophylaxis-DVT/PE, Indications: Prophylaxis of Venous Thromboembolism 0949 (Given - Provider: Carlotta Wooten RN) ferrous sulfate tablet 325 mg 325 mg, Oral, Daily, First dose on Sat03/01/23 at 0900 0948 (Given - Provider: Carlotta Wooten RN) 0939 (Given - Provider: Vicki Sommers RN) 0858 (Given - Provider: Jose Yanez RN) furosemide (Lasix) injection 40 mg (COMPLETED) 40 mg, IntraVENous, Once, On Sat03/03/23 at 0845, For 1 dose 0949 (Given - Provider: Carlotta Wooten RN) insulin glargine (Lantus) injection 30 Units 30 Units, SubCUTAneous, Nightly, First dose (after last modification) on 03/03/23 at 2100 2141 (Given - Provider: Kay Dumont RN - Comment: bg 167) 2118 (Given - Provider: Ellie Davis RN) Insulin Lispro (Humalog) injection 0-12 Units 0-12 Units, SubCUTAneous, 3 times daily with meals, First dose on 03/03/23 at 0800, Moderate dose Sliding scale: <150 = 0 unit 151-200 = 2 units 201-250 = 4 units 251-300 = 6 units 301-350 = 8 units 351-400 = 10 units > 400 = 12 units and call endocrine 0800 (Not Given - Provider: Carlotta Wooten RN - Reason: Other - Comment: Patient refusing breakfast at this time.)1144 (Given - Provider: Carlotta Wooten RN)1820 (Given - Provider: Carlotta Wooten RN) 0840 (Not Given - Provider: Vicki Sommers RN - Reason: Order parameters not met)1210 (Given - Provider: Vicki Sommers RN)1719 (Given - Provider: Vicki Sommers RN) 0804 (Given - Provider: Kam Escamilla RN)1200 (Not Given - Provider: Jose Yanez RN - Reason: Order parameters not met)1700 (Canceled Entry - Provider: Automatic Discharge Provider - Comment: Automatically canceled at discontinue of medication order) Insulin Lispro (Humalog) injection 10 Units 10 Units, SubCUTAneous, 3 times daily with meals, First dose (after last modification) on 03/03/23 at 0800, Hold if NPO 0800 (Not Given - Provider: Carlotta Wooten RN - Reason: Other - Comment: Patient refusing breakfast at this time.)1144 (Given - Provider: Carlotta Wooten RN)1820 (Given - Provider: Carlotta Wooten RN) 0840 (Given - Provider: Vicki Sommers RN)1211 (Given - Provider: Vicki Sommers RN)1719 (Given - Provider: Vicki Sommers RN) 0804 (Given - Provider: Kam Escamilla RN)1255 (Given - Provider: Jose Yanez RN)1700 (Canceled Entry - Provider: Automatic Discharge Provider - Comment: Automatically canceled at discontinue of medication order) Lidocaine 4 % patch 1 patch 1 patch, Topical, Administer over 12 Hours, Daily, First dose on Tiana 02/28/23 at 1130, Recovery & On Unit, Cut in half and place on both sides of the incision. Patch may remain in place for up to 12 hours in any 24 hour period. 0949 (Medication Applied - Provider: Carlotta Wooten RN)2148 (Medication Removed - Provider: Kay Dumont RN) 09 (Medication Applied - Provider: Vicki Sommers, VICENTE)2138 (Medication Removed - Provider: Ellie Davis RN) 0858 (Medication Applied - Provider: Jose Yanez RN)1600 (Due: Medication Removed - Provider: Automatic Discharge Provider - Comment: Time automatically adjusted from order being discontinued) magnesium hydroxide (Milk of Magnesia) 400 MG/5ML suspension 30 mL (CANCELED) 30 mL, Oral, Daily, First dose (after last modification) on 03/02/23 at 0945, Recovery & On Unit 0539 (Given - Provider: Zhou Mendez, VICENTE) metoclopramide (Reglan) tablet 10 mg (CANCELED)(Linked Group 1) 10 mg, Oral, 2 times daily, First dose on Sat03/01/23 at 1500 0539 (Given - Provider: Zhou Mendez, VICENTE) metoprolol tartrate (Lopressor) tablet 25 mg 25 mg, Oral, 2 times daily, First dose on Sat03/01/23 at 0900, Hold for SBP less than 105 and/or MAPs less than 65 and/or HR less than 60 1000 (Given - Provider: Carlotta Wooten RN)214 (Given - Provider: Kay Dumont RN) 09 (Given - Provider: Vicki Sommers, VICENTE)211 (Given - Provider: Ellie Davis RN) 0858 (Given - Provider: Jose Yanez RN) mupirocin (Bactroban) 2 % ointment (COMPLETED) Nasal, 2 times daily, First dose on Tiana 02/28/23 at 1130, For 4 days, Phase II/On Unit 0949 (Given - Provider: Carlotta Wooten, VICENTE)2140 (Given - Provider: Kay Dumont, VICENTE) pantoprazole (ProtoNix) EC tablet 40 mg 40 mg, Oral, Daily before breakfast, First dose on Sat03/01/23 at 0715, Do not crush, chew, or split. 0539 (Given - Provider: Zhou Mendez RN) 0614 (Given - Provider: Kay Dumont RN) 06 (Given - Provider: Ellie Davis RN) polyethylene glycol (PEG) 3350 (Miralax) packet 17 g 17 g, Oral, Daily, First dose on Tiana 02/28/23 at 1130, Recovery & On Unit, Bowel Regimen - for prevention of constipation. 0946 (Given - Provider: Carlotta Wooten RN) 09 (Not Given - Provider: Vicki Sommers RN - Reason: Patient/family refused) 0858 (Not Given - Provider: Jsoe Yanez RN - Reason: Patient/family refused) rosuvastatin (Crestor) tablet 40 mg 40 mg, Oral, Nightly, First dose on 03/02/23 at 2100 2140 (Given - Provider: Kay Dumont RN) 2117 (Given - Provider: Ellie Davis RN) senna-docusate sodium (Senokot-S) 8.6-50 MG tablet 2 tablet 2 tablet, Oral, Nightly, First dose on Tiana 02/28/23 at 2100, Recovery & On Unit, Bowel Regimen - for prevention of constipation. 2140 (Given - Provider: Kay Dumont RN) 2117 (Given - Provider: Ellie Davis RN) sodium chloride 0.9% (NS) flush 10 mL (CANCELED) 10 mL, IntraVENous, Every 12 hours scheduled (2 times per day), First dose on Tiana 02/28/23 at 1130, Recovery & On Unit 948 (Given - Provider: Carlotta Wooten RN)2141 (Given - Provider: Kay Dumont RN) PRN Medication Order 03/03/2023 03/04/2023 03/05/2023 dextrose 5 % infusion 100 mL/hr, IntraVENous, PRN, Blood sugar less than 70mg/dL, Starting on Tiana 02/28/23 at 1122, Recovery & On Unit, Start infusion following administration of dextrose 50% or glucagon. dextrose 50 % solution 12.5 g 12.5 g, IntraVENous, PRN, low blood sugar, Blood glucose less than 70 mg/dL and patient NOT ALERT or NPO., Starting on Tiana 02/28/23 at 1122, Recovery & On Unit, If patient does not respond within 5 minutes, repeat dose x1. Start D5W at 100 mL/hour until ordering provider can be reached. Repeat blood glucose in 15 minutes. If blood glucose is less than 70 mg/dL, repeat treatment and recheck blood glucose in 15 minutes x2. If using Glucostabilizer, dose as instructed per system. glucagon (human recombinant) injection 1 mg 1 mg, IntraMUSCular, PRN, low blood sugar, Blood glucose less than 70 mg/dL and patient NOT ALERT or NPO and does not have IV access., Starting on Tiana 02/28/23 at 1122, Recovery & On Unit, After administration, attempt intravenous access and start D5W at 100 mL/hr. Repeat blood glucose in 15 minutes x2 and notify provider. glucose oral gel 15 g 15 g, Oral, As needed, low blood sugar, Starting on Tiana 02/28/23 at 1122, Recovery & On Unit, If blood glucose less than 50 mg/dL and patient ALERT and NOT NPO, give 2 tubes glucose gel. If blood glucose less than 70 mg/dL and patient ALERT and NOT NPO, give 1 tube glucose gel. Repeat blood glucose in 15 minutes. If blood glucose is less than 70 mg/dL, repeat treatment and recheck blood glucose in 15 minutes x2 and notify provider. magnesium sulfate IVPB 4,000 mg(Linked Group 2) 4,000 mg, IntraVENous, at 25 mL/hr, Administer over 4 Hours, As needed, Per Magnesium Replacement Protocol, Starting on Tiana 02/28/23 at 1122, Recovery & On Unit, Mg Lab Replacement Action 1.4-1.6 2 gram IVPB x 1 doses 1.0-1.3 4 gram IVPB x 1 doses Less than 1.0 CALL PHYSICIAN and 4 gram IVPB x 1 doses Infuse at 1 gram/hr. Repeat Mag level next AM. Not for use in Patients with CrCl less than 30 mL/min. magnesium sulfate IVPB premix 2,000 mg(Linked Group 2) 2,000 mg, IntraVENous, at 25 mL/hr, Administer over 2 Hours, As needed, Per Magnesium Replacement Protocol, Starting on Tiana 02/28/23 at 1122, Recovery & On Unit, Mg Lab Replacement Action 1.4-1.6 2 gram IVPB x 1 doses 1.0-1.3 4 gram IVPB x 1 doses Less than 1.0 CALL PHYSICIAN and 4 gram IVPB x 1 doses Infuse at 1 gram/hr. Repeat Mag level next AM. Not for use in Patients with CrCl less than 30 mL/min. ondansetron (Zofran) injection 4 mg(Linked Group 3) 4 mg, IntraVENous, Every 6 hours PRN, nausea, vomiting, Starting on Tiana 02/28/23 at 1122, Recovery & On Unit, 1st Line. Give IV if patient is unable to take orally. If inadequate response within 60 minutes, proceed to next-line agent or contact provider if no further options ordered. ondansetron ODT (Zofran-ODT) disintegrating tablet 4 mg(Linked Group 3) 4 mg, Oral, Every 8 hours PRN, nausea, vomiting, Starting on Tiana 02/28/23 at 1122, Recovery & On Unit, 1st Line. If inadequate response within 60 minutes, proceed to next-line agent or contact provider if no further options ordered. Patient should allow tablet to dissolve on tongue. Do not remove from blister pack until just before administering. oxyCODONE (Roxicodone) immediate release tablet 10 mg(Linked Group 4) 10 mg, Oral, Every 6 hours PRN, severe pain (7-10), Starting on Tiana 02/28/23 at 1122, Recovery & On Unit 1617 (See Alternative - Provider: Vicki Sommers RN) oxyCODONE (Roxicodone) immediate release tablet 5 mg(Linked Group 4) 5 mg, Oral, Every 6 hours PRN, moderate pain (4-6), Starting on Tiana 02/28/23 at 1122, Recovery & On Unit 1617 (Given - Provider: Vicki Sommers RN) potassium chloride CR (Klor-Con M10) ER tablet 20 mEq 20 mEq, Oral, PRN, Hypokalemia, Starting on Sat03/01/23 at 0000, Phase II/On Unit, If patient is intubated or not tolerating PO use PRN IV replacement protocol Potassium level Dose LESS than 3.0 = Give 20 mEq x 3 doses 3.0-3.6 = Give 20 mEq x 2 doses Recheck potassium level 2 hour after replacement given, place order for lab under [place] If potassium level LESS than 3 after 1st replacement: Call surgeon. Do not crush or break. Do not crush or chew. sodium chloride 0.9 % infusion 250 mL/hr, IntraVENous, Administer over 10 Minutes, As needed, For use in priming line prior to transfusion (prime via gravity) and flush line post transfusion, Starting on Sat03/01/23 at 0828, For 1 dose, For use in priming line prior to transfusion (prime via gravity) and flush line post transfusion ONLY. Discontinue once line has been cleared of remaining blood product. Linked Groups Order Group 1: metoclopramide (Reglan) tablet 10 mg (CANCELED)Jump to med 10 mg, Oral, 2 times daily, First dose on Sat03/01/23 at 1500 Or metoclopramide (Reglan) injection 10 mg (CANCELED) 10 mg, IntraVENous, 2 times daily, First dose on Sat03/01/23 at 1500, Give IV if patient is unable to take orally. Group 2: magnesium sulfate IVPB premix 2,000 mgJump to med 2,000 mg, IntraVENous, at 25 mL/hr, Administer over 2 Hours, As needed, Per Magnesium Replacement Protocol, Starting on Tiana 02/28/23 at 1122, Recovery & On Unit, Mg Lab Replacement Action 1.4-1.6 2 gram IVPB x 1 doses 1.0-1.3 4 gram IVPB x 1 doses Less than 1.0 CALL PHYSICIAN and 4 gram IVPB x 1 doses Infuse at 1 gram/hr. Repeat Mag level next AM. Not for use in Patients with CrCl less than 30 mL/min. Or magnesium sulfate IVPB 4,000 mgJump to med 4,000 mg, IntraVENous, at 25 mL/hr, Administer over 4 Hours, As needed, Per Magnesium Replacement Protocol, Starting on Tiana 02/28/23 at 1122, Recovery & On Unit, Mg Lab Replacement Action 1.4-1.6 2 gram IVPB x 1 doses 1.0-1.3 4 gram IVPB x 1 doses Less than 1.0 CALL PHYSICIAN and 4 gram IVPB x 1 doses Infuse at 1 gram/hr. Repeat Mag level next AM. Not for use in Patients with CrCl less than 30 mL/min. Group 3: ondansetron ODT (Zofran-ODT) disintegrating tablet 4 mgJump to med 4 mg, Oral, Every 8 hours PRN, nausea, vomiting, Starting on Tiana 02/28/23 at 1122, Recovery & On Unit, 1st Line. If inadequate response within 60 minutes, proceed to next-line agent or contact provider if no further options ordered. Patient should allow tablet to dissolve on tongue. Do not remove from blister pack until just before administering. Or ondansetron (Zofran) injection 4 mgJump to med 4 mg, IntraVENous, Every 6 hours PRN, nausea, vomiting, Starting on Tiana 02/28/23 at 1122, Recovery & On Unit, 1st Line. Give IV if patient is unable to take orally. If inadequate response within 60 minutes, proceed to next-line agent or contact provider if no further options ordered. Group 4: oxyCODONE (Roxicodone) immediate release tablet 5 mgJump to med 5 mg, Oral, Every 6 hours PRN, moderate pain (4-6), Starting on Tiana 02/28/23 at 1122, Recovery & On Unit Or oxyCODONE (Roxicodone) immediate release tablet 10 mgJump to med 10 mg, Oral, Every 6 hours PRN, severe pain (7-10), Starting on Tiana 02/28/23 at 1122, Recovery & On Unit (unrecognized sect ion and content) No Status Records FoundNo Status Records FoundNo Status Records Found INFORMATION SOURCE (unrecogn ized section and content) DATE CREATED AUTHOR 04/11/2023 [facility] DATE CREATED AUTHOR AUTHOR'S ORGANIZ ATION 12/04/2024 [facility] DATE CREATED AUTHOR AUTHOR'S ORGANIZ ATION 03/11/2025 [facility] FOR RECORDS PERTAINING TO PATIENTS WHO ARE OR HAVE BEEN ENROLLED IN A CHEMICAL DEPENDENCY/SUBSTANCEABUSE PROGRAM, SOME INFORMATION MAY BE OMITTED. This clinical summary was aggregated from multiple sources. Caution should be exercised in using it in the provision of clinical care. This summary normalizes information from multiple sources, and as a consequence, information in this document may materially change the coding, format and clinical context of patient data. In addition, data may be omitted in some cases. CLINICAL DECISIONS SHOULD BE BASED ON THE PRIMARY CLINICAL RECORDS. [facility]. provides no warranty or guarantee of the accuracy or completeness of information in this document.
[2025-04-15 08:12] LABS: Anion Gap 12 (5-15); BUN 35 mg/dL (4-19); BUN/Creat Ratio 34.8 RATIO (10-20); Calcium,Total 9.4 mg/dL (7.6-11.0); Carbon Dioxide 20.5 mmol/L (21.0-32.0); Chloride 107 mmol/L (98-108); Estimated Creatinine Clearance 52.64 ml/min (50-250); Glucose 207 mg/dL (70-99); Potassium 4.8 mmol/L (3.3-5.1)
--- NOTE | 2025-04-15 10:51 | DCINST_ITS ---
Discharge Instructions DC O2, CPAP, BIPAP needs Home O2 Discharge instructions: No Dressing / Incision Discharge Activity: Return to Normal Activity Dressing / Incision Call your doctor if your incision/area has: Continuous Slow Oozing, Sudden Increased Bleeding, Increased Pain/ Swelling, Increased Redness and Foul Smelling Discharge Call your doctor if you observe: Fever of 101 or Higher, Coldness, Increased Pain and Numbness or Tingling Follow Up Care Please Follow Up With: Martin Neri MD When: 2 weeks Test Results: Test results from this visit will be discussed in further detail at your follow- up appointment, if applicable. Discharge Plan Admission Attending Provider: Martin Neri Primary Care Provider: Felix Bill Instructions Print Language: Micronesian Discharge Orders/Prescriptions Prescriptions: New clopidogrel 75 mg Tablet 75 mg PO DAILY Qty: 30 6RF nitroglycerin 0.4 mg Tablet, Sublingual 0.4 mg sublingual Q5M PRN (Reason: Cardiac/Chest Pain) Qty: 15 6RF Continued insulin glargine [Lantus Solostar U-100 Insulin] 100 unit/mL (3 mL) insulin pen 12 unit SC QHS Farxiga 10 mg tablet 10 mg PO DAILY ramipril 5 mg capsule 5 mg PO DAILY ascorbic acid (vitamin C) 1,000 mg tablet 1 g PO DAILY glucosamine-chondroitin 500-400 mg capsule 1 cap PO DAILY Rx Instructions: give with meal/snack multivitamin Tablet 1 tab PO DAILY ferrous sulfate 325 mg (65 mg iron) tablet 325 mg PO DAILY acetaminophen 500 mg capsule 500 mg PO Q6H PRN (Reason: pain) triamcinolone acetonide 0.1 % cream 1 applic topical TID PRN (Reason: itching) insulin lispro [Humalog KwikPen Insulin] 100 unit/mL insulin pen 4 unit SUBCUT TID Patient Comments: PLEASE SEE ATTACHED FOR DETAILED DIRECTIONS Rx Instructions: Sliding scale (DME) pen needle, diabetic [Comfort EZ Pen [place]] 32 gauge x 5/32 needle See Dose Instructions .ROUTE .MEDSUPPLY Qty: 30 2RF Dose Instruction: As directed Rx Instructions: use with insulin pen to inject insulin 1 x qd aspirin [Adult Aspirin Regimen] 81 mg tablet,delayed release (DR/EC) 81 mg PO DAILY metoprolol tartrate 25 mg tablet 25 mg PO BID Qty: 180 3RF mesalamine 1.2 gram tablet,delayed release (DR/EC) 1.2 g PO BID Qty: 180 1RF rosuvastatin 40 mg tablet 40 mg PO DAILY Qty: 90 3RF Referrals / Follow Up: Felix Bill MD [Primary Care Provider, Internal Medicine] Disposition Disposition (needs filled in before D/C Order can be placed): Home, Self Care
--- NOTE | 2025-04-15 10:53 | EKG12_ITS ---
Test Reason : Post PCI Blood Pressure : */* mmHG Vent. Rate : 63 BPM Atrial Rate : 63 BPM P-R Int : 194 ms QRS Dur : 90 ms QT Int : 412 ms P-R-T Axes : 62 57 51 degrees QTcB Int : 421 ms Normal sinus rhythm Normal ECG When compared with ECG of 02-Feb-2025 09:31, No significant change was found Confirmed by Cameron Avila ([id number]), features editor GINNY YOUNG ([id number]) on 04/26/2025 7:15:20 AM Referred By: Martin Neri Confirmed By: Cameron Avila
[2025-04-15 11:45] LABS: ACT Activated Clotting Time 204 sec (74-137)
--- NOTE | 2025-04-15 12:08 | CL.I_ITS ---
Patient Name: VIDAL BRUNO Study Date: 04/15/2025 Performing: Martin Neri MD Ht: 66 inches 167.64 cm : 1945 Wt: 159.99 lbs 72.57 kg Age: 80 Gender: male BSA: 1.82 PROCEDURE(S) PERFORMED DC04-(84420)LHC/COR/CABG IC12-(66452/C9600)TERRY W/WO PTCA, SINGLE CORONARY ARTERY CLINICAL PROFILE AND CO-MORBIDITIES Indications: Stable Known CAD Heart Failure: None Stress/Imaging Stress Test w/SPECT MPI: Yes Result: Positive Intermediate Risk Stress Test with SPECT MPI: Positive Intermediate Risk CAD Presentations: Symptom unlikely to be ischemic. CONCLUSIONS 80% Prox LAD; SINGER to LAD patent 60% ostial LCX; 80% Prox/Mid OM1; 80% Prox OM2 mm, post-dilated using 2.5 mm balloon RECOMMENDATIONS ASA Indefinitley P2Y12 inhibitors for atleast 6 months F/U in office +/- Staged PCI to OM1/OM2 DESCRIPTION OF PROCEDURE The patient arrived to the procedure lab. The risks and benefits of the procedure as well as a full description of our services here and lack of surgical backup were fully explained to the patient and/or their significant other prior to the catheterization. The Timeout was completed, verifying the correct patient and procedure. The patient's procedural site was prepped and draped in the usual fashion. Local anesthetic was given subcutaneously to right radial region with Lidocaine 2%. Using a modified Seldinger technique, arterial access was obtained via the right radial artery, a 6Fr sheath was inserted.. Left Coronary Artery selective angiography was performed in multiple views using a 5 Fr. 4.0 [place] catheter. Saphenous Vein graft to the RPL selective angiography was performed in multiple views using a 5 Fr. 4.0 [place] catheter. Right Coronary Artery selective angiography was then performed in multiple views using a 5 Fr. 4.0 [place] catheter. Left internal mammary artery graft to the LAD selective angiography was performed in multiple views using a 5 Fr. IM catheterThe images were reviewed and options discussed. A decision was then made to proceed with an Intervention, IVUS or other adjunct procedure. JR4 Guide catheter was inserted and engaged into the RCA. RUNTHROUGH Guide wire was advanced to the RCA. 2.0X20 EUPHORA Balloon catheter was inserted. Balloon catheter was advanced across lesion in the right coronary, proximal. Angiogram performed pre balloon dilatation. PTCA balloon inflated at 14 atms for 18 secs. PTCA balloon inflated at 14 atms for 8 secs. PTCA balloon inflated at 14 atms for 13 secs. PTCA balloon inflated at 14 atms for 14 secs. PTCA balloon inflated at 14 atms for 16 secs. Angiogram performed post balloon dilatation. 2.25X38 JOAN FRONTIER Drug Eluting stent was inserted. Drug Eluting stent was advanced across the lesion in the right coronary, proximal. Angiogram performed pre stent deployment. Angiogram performed post stent deployment. 2.25X30 JOAN FRONTIER Drug Eluting stent was inserted. Drug Eluting stent was advanced across the lesion in the right coronary, proximal. Angiogram performed pre stent deployment. Angiogram performed post stent deployment. Angiogram performed post stent deployment. 2.5X20 [place] EMERGE Balloon catheter was inserted post stent. Angiogram performed pre balloon dilatation. Angiogram performed post balloon dilatation. Angiogram performed post balloon dilatation. The arterial sheath was pulled and a TR Band was applied for hemostasis - 14cc air CORONARY ANGIOGRAPHY DOMINANCE: Co- Dominant LEFT MAIN: Angiographically normal LEFT ANTERIOR DESCENDING ARTERY: PROX LAD: 80%; SINGER to Mid LAD patent INTERVENTION INFORMATION LESION SITE: RCA (Proximal) Lesion Complexity: High/C, lesion length: 66 mm Pre Stenosis: 90 % Pre intervention ANALILIA flow: 3 PROCEDURE: Drug Eluting Stent with pre and post dilatation Post Stenosis: 0 % Post intervention ANALILIA flow: 3 Lesion Devices: Cordis 6 Fr JR4 100cm Guide Catheter Cordis 6 Fr JR4 100cm Guide Catheter Medtronic SC EUPHORA RX 2.0x20 BALLOON Medtronic 2.25 x 38 JOAN FRONTIER TERRY Medtronic 2.25 x 30 JOAN FRONTIER TERRY [employer] [place] EMERGE MR 2.50x20 BALLOON COMPLICATIONS No Complications PROCEDURE MEDICATIONS Fentanyl 50 mcg IV Versed 1 mg IV Versed 1 mg IV Versed 2 mg IV Oxygen: 2 L/min via nasal cannula Brilinta 180 mg PO @ 04/15/2025 10:06:58 Heparin given IA 04/15/2025 09:34:24 Heparin 5000 unit(s) IV 04/15/2025 10:06:46 Heparin 2000 unit(s) IV 04/15/2025 10:37:39 Nitro 200 mcg IC 04/15/2025 10:14:32 Nitro 200 mcg IC 04/15/2025 10:14:32 Verapamil 2.5mg, Ntg 200mcgs, 2000 units of Heparin given IA 04/15/2025 09:34:24 SUMMARY OF HEMODYNAMIC DATA Time AIR REST ECG 09:20:47 Art 115/53 (76) 09:36:30 AO 122/59 (84) SA 09:38:57 AO 123/57 (81) 09:40:41 AO 143/62 (93) 09:46:13 AO 169/69 (108) 09:51:35 AO 165/64 (102) 10:09:12 AO 183/75 (117) 10:13:19 AO 196/78 (125) 10:20:37 AO 171/74 (113) 10:26:07 Signed By Martin Neri MD On 04/15/2025 12:07:12 PM Martin Neri MD
--- NOTE | 2025-04-15 15:33 | CRPHASE1_ITS ---
Patient Communication Patient Information Former Patient:: Phase II PHII Cardiac Rehab Discussed with Patient:: Yes Guide to Cardiac Rehab Given to Patient:: Yes Cardiac Rehab Facility Choice List Given to Patient:: Yes Communication to Cardiac Rehab Choice Program [facility] CR PHII:: Communication Given to CR Logistical Engineer:: Martin Neri Phase II Cardiac Rehab:: Yes Sessions:: 36 sessions - 3 days/wk, 12 weeks Cardiac Rehabilitation Info Program Information Cardiac Rehabilitation Program Information: Cardiac Rehab The cardiac rehab team at [facility] consists of highly skilled exercise physiologists, nurses, respiratory therapists and physicians working together with you. Our purpose is to help you have a full recovery and achieve the goals you set for yourself. Over the years many of our patients have returned to activities they assumed they would never do again! We can help restore your confidence and motivation to make lifestyle changes that can have a significant impact on your health and quality of life! We can help answer questions and concerns you may have about exercise, lifestyle, medications, diet, stress and anxiety which are common following a hospitalization. WE monitor ECG and vital signs during exercise and discuss your progress with you and report to your physician(s). Cardiac Rehab is proven to help reduce readmissions, improve functional capacity and lower recurrence of problems with your heart. Our Cardiac Rehab program is Certified by the [place] [employer]io-Vascular and Pulmonary Rehabilitation (AACVPR) and Accredited by the [place] [employer] through our [facility]. You can contact us at . We invite you to call us with your questions or to get started in our program. If you have other questions or concerns be sure to ask your physician/provider during your follow-up visit. WE look forward to seeing you!
--- NOTE | 2025-04-15 15:34 | CRPH1.INSTRU ---
General Education Discussed with Patient CAD and cardiac anatomy and function:: Patient communicates acknowledgment Explanation of diagnoses and procedures:: Patient communicates acknowledgment Sign/Symptoms of OH:: Patient communicates acknowledgment Antiplatelet therapy: Patient communicates acknowledgment Proper use of NTG-SL: Patient communicates acknowledgment Emergency procedures and activation of EMS: Patient communicates acknowledgment Compliance of all prescribed medications: Patient communicates acknowledgment Dyslipidemia Risk Factors Patient Dyslipidemia Risk Factors Are:: Total Cholesterol, Triglycerides, HDL and LDL Recommendations Recommendations Include:: Lipid profile not available Response Code Dyslipidemia Response Code:: Patient communicates acknowledgment Hypertension Recommendations Recommendations Include:: BP <130/80 if diabetic and Decrease/maintain normal body weight Response Code Hypertension:: Patient communicates acknowledgment and Family communicates acknowledgment Heart Disease Risk Factors Patient Heart Disease Risk Factors Are:: Previous cardiac event Recommendations Recommendations Include:: Educated family members of their risk Response Code Heart Disease Response Code:: Patient communicates acknowledgment Diabetes Risk Factors Patient Diabetes Risk Factors Are:: Elevated blood sugars Recommendations Recommendations Include:: Maintain fasting blood sugars 70-110 md/dL, Maintain HgbA1c of 6% or less, Monitor blood sugar as prescribed and Diabetic dietary guidelines Response Code Diabetes:: Patient communicates acknowledgment
[2025-04-15 18:18] VITALS: BP 172/76; PULSE 66; RESP 14; TEMP 36.3; O2SAT 97
[2025-04-15 21:00] VITALS: BP 129/57; PULSE 56; PULSE 58; RESP 14; TEMP 36.4; O2SAT 97
[2025-04-15 21:45] VITALS: BP 169/92; PULSE 65
[2025-04-15] MEDS: Insulin Glargine-YFGN 100 UNIT/ML Pen 12 UNIT SC (21:49)
[2025-04-16] VITALS (11 sets, daily range): BP systolic 153–175; BP diastolic 63–142; PULSE 50–60; RESP 11–17; TEMP 36.3–37.1; O2SAT 96–99
[2025-04-16 05:06] LABS: Hematocrit 32.7 % (40-54); Hemoglobin 10.4 g/dL (13.0-16.5); Mean Corp Hgb Conc 31.8 g/dL (32-36); Mean Corpuscular Volume 84.9 fL (80-94); Mean Platelet Vol. 10.2 fl (6.2-12.0); Platelet Count 208 K/mm3 (150-450); RBC Distribution Width CV 13.3 % (11.6-14.6); RBC Distribution Width SD 40.9 fl (35.1-43.9); Red Blood Count 3.85 M/mm3 (4.6-6.2); White Blood Count 6.5 K/mm3 (4.4-11.0)
[2025-04-16 05:27] LABS: AST(SGOT) 43 U/L (<=37); Alanine Aminotransfer ALT/SGPT 49 U/L (<=46); Albumin, Serum 4.1 g/dL (3.4-4.8); Alkaline Phosphatase 75 U/L (40-129); Anion Gap 10 (5-15); BUN 30 mg/dL (4-19); BUN/Creat Ratio 29.3 RATIO (10-20); Calcium,Total 9.6 mg/dL (7.6-11.0); Carbon Dioxide 21.9 mmol/L (21.0-32.0); Chloride 107 mmol/L (98-108); Estimated Creatinine Clearance 51.62 ml/min (50-250); Globulin 2.6 g/dL (2.2-4.2); Glucose 135 mg/dL (70-99); Potassium 4.7 mmol/L (3.3-5.1)
[2025-04-16] MEDS: Aspirin E.C. 81 MG Tablet PO (09:27)
--- NOTE | 2025-04-16 09:42 | CASEMGMT ---
VICENTE BELL Assessment Face to Face with patient for initial transition planning/care coordination assessment. VICENTE BELL introduced self and role at [facility], pt voices understanding. Pt is A&Ox4 and is resting comfortably in bed and is calm. Pt's RN at the bedside. Care providers, pharmacy, and demographics verified. Admitting dx: ABN STRESS LACE Strata: 2 PCP: Fly Specialists: MCKENNA Preferred Pharmacy: [facility] - Pt states that his is getting his rxs now and bringing them into the hospital. Insurance: [employer] [facility] Prescription Benefit: Yes LNOK: Lilian (W) Living Arrangements: Pt lives in a 3 story home with 1 step to enter ADLs/IADLs: Indep. 6-Click score is 24 Transportation: Self, DME: CBGM and back up manual BGM with sufficient testing supplies including lancets, test strips, and EtOH swabs. BP Machine. Pt denies further needs or concerns HHC/SNF: Reports HH history x 2 years ago but cannot recall the name of the agency Pt?s goal: Home Plan: Home once pt received his rxs. Pt states that he feels safe returning home today and denies any further DC needs or concerns. Pt denies the need for any additional therapy or resources. Natacha Urias RN, CM
== END 2025-04-16 11:35 | disposition home or self-care (01) ==
LOC: CLSP 10:53 → ICU 04-16 09:07
PROVIDERS: Admitting Provider Internal Medicine Cardiovascular Disease; PCP Internal Medicine; Referring Provider Internal Medicine Cardiovascular Disease; Visit Provider Internal Medicine Cardiovascular Disease
DX: R94.39 Abnormal result of other cardiovascular function study (principal); C88.01 Waldenstrom macroglobulinemia, in remission; E11.9 Type 2 diabetes mellitus without complications; I25.10 Atherosclerotic heart disease of native coronary artery without angina pectoris; F17.220 Nicotine dependence, chewing tobacco, uncomplicated; R06.02 Shortness of breath; R07.9 Chest pain, unspecified; E78.00 Pure hypercholesterolemia, unspecified; Z95.1 Presence of aortocoronary bypass graft; Z95.2 Presence of prosthetic heart valve; D50.9 Iron deficiency anemia, unspecified; Z51.12 Encounter for antineoplastic immunotherapy
CPT/HCPCS: 36415; 80048; 80053; 82962; 83615; 84550; 85025; 85027; 85347; 92928; 93005; 93455; 96367; 96375; 96413; 96415; 99152; 99153; 99221; C1769; C1874; C1894; Q9967; C1725; C1887; C9600; G0378; Q5115